=== PATIENT | female | born 1960 | race Caucasian/White ===

== ENCOUNTER → 2016-03-18 | Outpatient (CLI) | payer OTHER, MEDICARE, MEDICAID ==
[~2016-03-18] MED LIST: /WARF25TA PO; ACEP120S4 PO; ACET500C PO; ACET50TAOT PO; AMLO10TA2 PO; BACL10TA2 PO; BUSP15TA47 PO; CELE-19 PO; CITR500T PO; DICL75TA PO; DITR5TAB PO; ETOD400T PO; FERR140T PO; FEXO60CA PO; FIBE500T2 PO; FLUO1TAB3 PO; FOLI1TAB2 PO; HUMI40KI SC; HYDR-3713 PO; HYDR12.55 PO; HYDR25T PO; HYDR25TAB PO; INSULADS SC; INSULANT SC; IPRASOL4 INH; LASI20TA PO; LEVO750T33 PO; LIDO1OIN2 TOP; LISI10TA4 PO; LISI40TAB PO; LORA10TA2 PO; LYRI150C PO; LYRI200C PO; LYRI75CA PO; MELO7.5T6 PO; METF-699 PO; METF500T PO; METF500T4 PO; METH1INJ IJ; METH2.5TA PO; MOBI15TA PO; NAPR500T2; NICODIS TD; NYST10CR EXT; OMEP20CA3 PO; OXYC1TAB23 PO; PEPC40SU PO; PERC5TAB6 PO; PERC7.5T12 PO; PERCOCET PO; POTA10CA PO; PRAM0.123 PO; PRAV40TA2 PO; PRAV80TA2 PO; PROZ20CA11 PO; ROPI0.5T PO; ROPI5TAB PO; SERT25TA85 PO; SIMV40TA2 PO; SPIR25TA2 PO; STOO100T PO; TIZA4CAP3 PO; TRAZ50TA2 PO; ULTR50TA PO; VICT18IN SC; VOLT1GEL24 TOP; ZOCO40TA PO; ZOLO20CO PO; [UNRECOGNIZED DRUG - CODE] PO; [UNRECOGNIZED DRUG - OTHER] PO; [UNRECOGNIZED DRUG - OTHER] SQ; flexeril PO
== END ==
LOC: M PAIN 10:20
PROVIDERS: ATTEND Nurse Practitioner Family
DX: M79.1 Myalgia (principal); M46.96 Unspecified inflammatory spondylopathy, lumbar region; Z79.899 Other long term (current) drug therapy; M54.2 Cervicalgia; M19.90 Unspecified osteoarthritis, unspecified site; E78.5 Hyperlipidemia, unspecified; I10 Essential (primary) hypertension; Z79.891 Long term (current) use of opiate analgesic; Z79.84 Long term (current) use of oral hypoglycemic drugs; Z79.4 Long term (current) use of insulin

== ENCOUNTER → 2016-04-18 | Outpatient (REF) | payer OTHER, MEDICARE, MEDICAID | LOC: M SMT 12:48 | PROVIDERS: ATTEND Nurse Practitioner Women's Health | DX: R39.15 Urgency of urination (principal) ==

== ENCOUNTER → 2016-04-27 | Outpatient (CLI) | payer OTHER, MEDICARE, MEDICAID ==
--- NOTE | 2016-04-28 01:03 | ECWPNPC ---
PATIENT NAME: ESTHER MAE : 1960 GENDER: FEMALE VISIT DATE: 04/27/2016 DISCHARGE DATE: 04/27/16 1219 VISIT LOCKED DATE TIME: PHYSICIAN: JERE HORTON RESOURCE: JERE HORTON REASON FOR APPOINTMENT 1. WC, L SHOULDER AND L KNEE HISTORY OF PRESENT ILLNESS HISTORY OF PRESENT ILLNESS: PAIN THE PATIENT DESCRIBES THE PAIN... FALL RISK SCREENING: SCREENING :NO FALLS IN THE PAST YEAR TODAY'S VISIT: NOTES: WC FOLLOWUP VISIT FOR LEFT SHOULDER AND LEFT KNEE. RATES PAIN TODAY 12/06. PAIN IS CONSTANT, ACHING AND STABBING. PAIN MAKES IT VERY DIFFICULT TO WALK, SLEEP AND TO GO ABOUT ACTIVITES OF DAILY LIVING AT HOME.. CURRENT MEDICATIONS TAKING FOLIC ACID 1 MG TABLET 3 TABLET ORALLY ONCE A DAY TAKING METFORMIN HCL 1000 MG TABLET 1 TAB(S) ORALLY BID TAKING FAMOTIDINE 40 MG TABLET 1 TABLET AT BEDTIME ORALLY ONCE A DAY TAKING BUSPIRONE HCL 15 MG TABLET 1 TABLET ORALLY TWICE A DAY TAKING PEN NEEDLES 31G X 6 MM MISCELLANEOUS DIRECTED INTRAMUSCULARLY DAILY TAKING ROPINIROLE HCL 0.5 MG TABLET 1 TAB ORALLY AT BEDTIME TAKING INSULIN SYRINGE/NEEDLE 28G X 1/2 MISCELLANEOUS 1- DX: 250.00 SUBCUTANEOUSLY DAILY TAKING PRAVASTATIN SODIUM 80 MG TABLET 1 TABLET ORALLY ONCE A DAY TAKING TRAZODONE 50 50MG TABLET 1 TAB ORAL IN THE PM TAKING OXYGEN 2LPM DIRECTED NASAL CANNULA AT BEDTIME TAKING LANTUS 100 UNIT/ML SOLUTION INJECT 32 UNITS SUBCUTANEOUSLY AT BEDTIME TWICE DAILY TAKING ZYRTEC 10 MG TABLET 1 TABLET ORALLY ONCE A DAY TAKING HUMIRA PEN 40 MG/0.8ML KIT 0.8 ML SUBCUTANEOUS Q OTHER WEEK TAKING HYDROCHLOROTHIAZIDE 25 MG TABLET 1 TABLET ORALLY ONCE A DAY TAKING BYDUREON 2MG/VIAL 1 INJECTION SUBCUTANEOUSLY ONCE WEEKLY TAKING NORCO 5-325 MG TABLET 1 TABLET NEEDED ORALLY EVERY 6 HRS MDD =3 TAKING LYRICA 200 MG CAPSULE 1 CAPSULE ORALLY TWICE A DAY MDD=2 TAKING OXYBUTYNIN CHLORIDE ER 10 MG TABLET EXTENDED RELEASE 24 HOUR 1 TABLET ORALLY ONCE A DAY NOT-TAKING LISINOPRIL 40 MG TABLET 1 TABLET ORALLY ONCE A DAY NOT-TAKING FLUOXETINE 20 MG CAPSULE 1 CAPSULE IN THE MORNING ORALLY ONCE A DAY NOT-TAKING LYRICA 200 MG CAPSULE 1 CAPSULE ORALLY TWICE A DAYMDD2 NOT-TAKING BYDUREON 2 MG PEN-INJECTOR SUBCUTANEOUS NOT-TAKING METHOTREXATE 2.5 MG TABLET 6 TABS ORALLY WEEKLY, NOTES: 726-16 0800 NOT-TAKING HUMIRA 10 MG/0.2ML PREFILLED SYRINGE KIT SUBCUTANEOUS , NOTES: DUE 09-29-15 NOT-TAKING ROBAXIN 500 MG TABLET 1 TAB(S) ORALLY EVERY 8 HRS, NOTES: 09-24-152099 NOT-TAKING METFORMIN HCL ER 500 MG TABLET EXTENDED RELEASE 24 HOUR 1 TABLET WITH EVENING MEAL ORALLY TWICE DAILY, NOTES: 09-24-152099 NOT-TAKING MELOXICAM 7.5 MG TABLET 1 TABLET ORALLY TWICE A DAY MDD=2, NOTES: 09-24-152099 NOT-TAKING CLOTRIMAZOLE-7 1 % CREAM 1 APPLICATION AT BEDTIME VAGINAL ONCE A DAY NOT-TAKING LORATADINE 10 MG TABLET 1 TABLET ORALLY ONCE A DAY NOT-TAKING PREDNISONE 10 MG TABLET 1 TABLET ORALLY TAKE 4 TABS DAILY FOR 3 DAYS, 3 TABS X 3 DAY, 2TAB X 3 DAY, 1 TAB X 3 DAY NOT-TAKING LYRICA 150MG CAPSULE PAIN CLINIC ORALLY TWICE A DAYMDD2 NOT-TAKING CEFDINIR 300 MG CAPSULE 1 CAPSULE ORALLY EVERY 12 HRS NOT-TAKING OXYBUTYNIN CHLORIDE 5 MG TABLET 1 TABLET ORALLY TID NOT-TAKING PYRIDIUM 200 MG TABLET 1 TABLET AFTER MEALS ORALLY THREE TIMES A DAY NOT-TAKING CIPRO 500 MG TABLET 1 TABLET ORALLY DIRECTED- 1 HOUR BEFORE CYSTOSCOPY NOT-TAKING DIFLUCAN 150MG (1 TABLET) 150 MG TABLET 1 TABLET ORALLY ONCE A WEEK UNKNOWN OXYCODONE-ACETAMINOPHEN 5-325 MG TABLET 1 TAB ORALLY EVERY 8 HOUR NEEDED MDD 3 UNKNOWN IMODIUM A-D 2 MG TABLET 2 TAB IN MORNING, 1 TAB AFTER EACH BM MAX 8 IN 24 HOURS ORALLY DIRECTED MEDICATION LIST REVIEWED AND RECONCILED WITH THE PATIENT PAST MEDICAL HISTORY DM CHRONIC LUNG DISEASE GERD ARTHRITIS BACK PAIN/NECK PAIN HYPERLIPIDEMIA HTN RLS FIBROMYALGIA RA PNEUMONIA ALLERGIES SEASONAL: RED, ITCHY EYES, HEADACHE, NASAL CONGESTION: ALLERGY SOCIAL HISTORY GENERAL: TOBACCO USE ARE YOU A:CURRENT SMOKER LEARNING BARRIERS / SPECIAL NEEDS ORIENTED TO PLAN OF CARE: PATIENT, PAIN MANAGEMENT PATIENT, ORIENTED TO PLAN OF CARE: PATIENT, PAIN MANAGEMENT PATIENT. NEW PATIENT PAIN DIARY TODAY'S VISITNOTES FROM 0-10, WHAT LEVEL IS YOUR PAIN TODAY?0 PAIN CLINIC PFS, CLERGY, PUBLIC HEALTH REFERRALS PFS REFERRAL NEEDED?NO CLERGY REFERRAL NEEDED?NO PUBLIC HEALTH REFERRAL NEEDED?NO WAS THE PROVIDER NOTIFIED OF ANY PERTINENT INFO?NO PFS REFERRAL NEEDED?NO CLERGY REFERRAL NEEDED?NO PUBLIC HEALTH REFERRAL NEEDED?NO WAS THE PROVIDER NOTIFIED OF ANY PERTINENT INFO?NO REVIEW OF SYSTEMS CONSTITUTIONAL: ANY CHANGE IN YOUR MEDICAL CONDITION? NO . CHILLS NO . FEVER NO . INFECTION: DO YOU HAVE NEW INFECTIONS? NO . DO YOU HAVE HISTORY OF MRSA? NO . MUSCULOSKELETAL: ANY NEW PATTERNS OF PAIN OR NUMBNESS? NO . GASTROENTEROLOGY: ANY NEW CHANGE IN BOWEL CONTROL? NO . GENITOURINARY: ANY NEW CHANGE IN BLADDER CONTROL? NO . IS THERE A CHANCE YOU COULD BE ? NO . HEMATOLOGY/LYMPH: DO YOU TAKE ANY BLOOD THINNERS? (FOR EXAMPLE- COUMADIN, PLAVIX, AGGRENOX, PLATEL, PRADAXA, OR XARELTO) NO . WHEN WAS YOUR LAST DOSE? DATE: TIME: . NEUROLOGY: HAVE YOU FALLEN IN THE PAST 6 MONTHS? NO . ANY NEW EXTREMITY NUMBNESS OR WEAKNESS? NO . CARDIOLOGY: DO YOU HAVE A PACEMAKER OR DEFIBRILLATOR? NO . RESPIRATORY: HAVE YOU BEEN SICK IN THE PAST WEEK? YES, SINUS INFECTION - JUST STARTED ON LEVAQUIN. STILL ON 2-4/NC ESPECIALLY WHEN WALKING. . FEVER NO . FLU LIKE SYMPTOMS? NO . COUGH NO . INTEGUMENTARY: DO YOU HAVE ANY RASHES OR OPEN SORES? NO . ALLERGIC/IMMUNO: ARE YOU ALLERGIC TO SHELLFISH OR IV DYE? NO . ANY NEW ALLERGIES? NO . PSYCHIATRIC: DO YOU HAVE THOUGHTS OF HURTING YOURSELF OR SOMEONE ELSE? NO . ARE YOU ABUSED, NEGLECTED, OR IN AN UNSAFE ENVIRONMENT? NO . ENDOCRINOLOGY: ARE YOU DIABETIC? YES - 117- 130. . OTHER: DO YOU NEED ANY PRESCRIPTIONS? YES . IF YES, PLEASE LIST: LYRICA . ANY NEW PROBLEMS WITH YOUR MEDICATIONS? NO . WHEN DID YOU LAST EAT? ____ . WHEN DID YOU LAST DRINK? ____ . WHAT DID YOU LAST DRINK? ____ . NAME OF PERSON DRIVING YOU HOME? ____ . DO YOU HAVE ANY OTHER QUESTIONS OR CONCERNS NO . REVIEWED BY: PROVIDER: JERE HORTON [employer] STAFF OFFICER . VITAL SIGNS WT 278.8 LBS, HT 66.75 IN, BMI 43.99 INDEX, BP 133/83 MM HG, HR 95 /MIN, RR 18 /MIN, TEMP 98.2 F, OXYGEN SAT % 97%, NA INITIALS IL 11:27, REVIEWED BY: JET. EXAMINATION GENERAL EXAMINATION: GENERAL APPEARANCE:COLOR PINK. PSYCHALERT , ORIENTED X 3 , APPROPRIATE MOOD AND AFFECT . LUNGS:DECREASED AIR FLOW. NO WHEEZES, RALES OR RHONCHI. HEART:HEART RATE INTERMITTANTLY IRREGULAR. MUSCULOSKELETAL:TRIGGER POINTS:ANTERIOR AND POSTERIOR SHOULDER AREA. CAN ABDUCT LEFT SHOULDER TO 90 DEGREES. PAIN IN AC JOINT WITH INTERNAL AND EXTERNAL MOTION. IMPLEMENTATION LEAD STRENGTH EQUAL AND STRONG. LEFT KNEE WARM TO TOUGH, WITH SOME EDEMA OVER THE LATERAL ASPECT. TENDERNESS OVER ILIOTIBIAL BAND.. ASSESSMENTS CHRONIC PRESCRIPTION OPIATE USE - Z79.899 (PRIMARY) JOINT PAIN - M25.50 PAIN IN LEFT KNEE - M25.562 OTHER CHRONIC PAIN - G89.29 PAIN IN LEFT SHOULDER - M25.512 TREATMENT CHRONIC PRESCRIPTION OPIATE USE NOTES: KEEP DOING RANGE OF MOTION ACTIVITIES. CONTINE TENS UNIT, MASSAGE AND BENGAY. PAIN IN LEFT SHOULDER NOTES: CONTINUE EXERCISES AND STRETCHES. USE ALTERNATING ICE AND HEAT. USE PAIN MEDS INFREQUENTLY. PROCEDURES PN WORKMANS' COMP OPINION IN YOUR OPINION, WAS THE INCIDENT THAT THE PATIENT DESCRIBED THE COMPETENT MEDICAL CAUSE OF THIS INJURY/ILLNESS? YES ARE THE PATIENT'S COMPLAINTS CONSISTENT WITH HIS/HER HISTORY OF THE INJURY/ILLNESS? YES IS THE PATIENT'S HISTORY OF THE INJURY/ILLNESS CONSISTENT WITH YOUR OBJECTIVE FINDING? YES WHAT IS THE PERCENTAGE OF TEMPORARY IMPAIRMENT? MODERATE TO MARKED = 66.7% IS THE PATIENT WORKING? NO DOCTOR ON SITE: JOSE HAUSER MD PROCEDURE CODES FA211 ESTABILISHED PATIENT [facility] CHARGE DISPOSITION & COMMUNICATION FOLLOW UP 6 WEEKS (REASON: WC LEFT SHOULDER AND KNEE) ELECTRONICALLY SIGNED BY JESSE ALLEN ON 04/27/2016 AT 01:49 PM EST DISCLAIMER : THIS IS A VISIT SUMMARY EXTRACTED FROM THE [employer] CHART. IT IS NOT A COPY OF THE [employer] PROGRESS NOTE. PRETTY
== END ==
LOC: M PAIN 10:40
PROVIDERS: ATTEND Nurse Practitioner Family
DX: M25.562 Pain in left knee (principal); M25.512 Pain in left shoulder; G89.29 Other chronic pain; Z79.891 Long term (current) use of opiate analgesic; Z79.899 Other long term (current) drug therapy; Z79.84 Long term (current) use of oral hypoglycemic drugs; Z79.4 Long term (current) use of insulin; M79.7 Fibromyalgia; M46.96 Unspecified inflammatory spondylopathy, lumbar region; I10 Essential (primary) hypertension; E11.9 Type 2 diabetes mellitus without complications; E78.5 Hyperlipidemia, unspecified; L40.50 Arthropathic psoriasis, unspecified; J30.2 Other seasonal allergic rhinitis

== ENCOUNTER → 2016-05-13 | Outpatient (CLI) | payer MEDICARE, MEDICAID, OTHER ==
--- NOTE | 2016-05-18 00:04 | ECWPNPC ---
PATIENT NAME: ESTHER MAE : 1960 GENDER: FEMALE VISIT DATE: 05/13/2016 DISCHARGE DATE: 05/13/16 1525 VISIT LOCKED DATE TIME: PHYSICIAN: JERE HORTON RESOURCE: JERE HORTON REASON FOR APPOINTMENT 1. NON COMP- HISTORY OF PRESENT ILLNESS HISTORY OF PRESENT ILLNESS: PAIN THE PATIENT DESCRIBES THE PAIN... THE PATIENT DESCRIBES THE PAIN... PAIN THE PATIENT DESCRIBES THE PAIN... THE PATIENT DESCRIBES THE PAIN... FALL RISK SCREENING: SCREENING :NO FALLS IN THE PAST YEAR :NO FALLS IN THE PAST YEAR SCREENING :NO FALLS IN THE PAST YEAR :NO FALLS IN THE PAST YEAR TODAY'S VISIT: NOTES: NON COMP VISIT FOR LOW BACK. RATES PAIN TODAY 8/10. PAIN IN LOW BACK WITH RADIATING TO LEGS AND FEET. PAIN IS MUCH WORSE SINCE FALLING OUT OF BED 2 WEEKS AGO. NOTES GENERALIZED FATIGUE IN LOWER EXTREMITES.. CURRENT MEDICATIONS TAKING FOLIC ACID 1 MG TABLET 3 TABLET ORALLY ONCE A DAY TAKING METFORMIN HCL 1000 MG TABLET 1 TAB(S) ORALLY BID TAKING FAMOTIDINE 40 MG TABLET 1 TABLET AT BEDTIME ORALLY ONCE A DAY TAKING BUSPIRONE HCL 15 MG TABLET 1 TABLET ORALLY TWICE A DAY TAKING PEN NEEDLES 31G X 6 MM MISCELLANEOUS DIRECTED INTRAMUSCULARLY DAILY TAKING ROPINIROLE HCL 0.5 MG TABLET 1 TAB ORALLY AT BEDTIME TAKING INSULIN SYRINGE/NEEDLE 28G X 1/2 MISCELLANEOUS 1- DX: 250.00 SUBCUTANEOUSLY DAILY TAKING PRAVASTATIN SODIUM 80 MG TABLET 1 TABLET ORALLY ONCE A DAY TAKING OXYGEN 2LPM DIRECTED NASAL CANNULA AT BEDTIME TAKING LANTUS 100 UNIT/ML SOLUTION INJECT 32 UNITS SUBCUTANEOUSLY AT BEDTIME TWICE DAILY TAKING ZYRTEC 10 MG TABLET 1 TABLET ORALLY ONCE A DAY TAKING HUMIRA PEN 40 MG/0.8ML KIT 0.8 ML SUBCUTANEOUS Q OTHER WEEK TAKING HYDROCHLOROTHIAZIDE 25 MG TABLET 1 TABLET ORALLY ONCE A DAY TAKING BYDUREON 2MG/VIAL 1 INJECTION SUBCUTANEOUSLY ONCE WEEKLY TAKING NORCO 5-325 MG TABLET 1 TABLET NEEDED ORALLY EVERY 6 HRS MDD =3 TAKING LYRICA 200 MG CAPSULE 1 CAPSULE ORALLY TWICE A DAY MDD=2 TAKING OXYBUTYNIN CHLORIDE ER 10 MG TABLET EXTENDED RELEASE 24 HOUR 1 TABLET ORALLY ONCE A DAY TAKING SPIRONOLACTONE 25 MG TABLET 1 TABLET ORALLY TWICE A DAY TAKING ASPIR-81 81 MG TABLET DELAYED RELEASE 1 TABLET ORALLY ONCE A DAY NOT-TAKING TRAZODONE 50 50MG TABLET 1 TAB ORAL IN THE PM NOT-TAKING LISINOPRIL 40 MG TABLET 1 TABLET ORALLY ONCE A DAY NOT-TAKING FLUOXETINE 20 MG CAPSULE 1 CAPSULE IN THE MORNING ORALLY ONCE A DAY NOT-TAKING LYRICA 200 MG CAPSULE 1 CAPSULE ORALLY TWICE A DAYMDD2 NOT-TAKING BYDUREON 2 MG PEN-INJECTOR SUBCUTANEOUS NOT-TAKING METHOTREXATE 2.5 MG TABLET 6 TABS ORALLY WEEKLY, NOTES: 6-16 0800 NOT-TAKING HUMIRA 10 MG/0.2ML PREFILLED SYRINGE KIT SUBCUTANEOUS , NOTES: DUE 09-29-15 NOT-TAKING ROBAXIN 500 MG TABLET 1 TAB(S) ORALLY EVERY 8 HRS, NOTES: 09-24-152099 NOT-TAKING METFORMIN HCL ER 500 MG TABLET EXTENDED RELEASE 24 HOUR 1 TABLET WITH EVENING MEAL ORALLY TWICE DAILY, NOTES: 09-24-152099 NOT-TAKING MELOXICAM 7.5 MG TABLET 1 TABLET ORALLY TWICE A DAY MDD=2, NOTES: 09-24-152099 NOT-TAKING CLOTRIMAZOLE-7 1 % CREAM 1 APPLICATION AT BEDTIME VAGINAL ONCE A DAY NOT-TAKING LORATADINE 10 MG TABLET 1 TABLET ORALLY ONCE A DAY NOT-TAKING PREDNISONE 10 MG TABLET 1 TABLET ORALLY TAKE 4 TABS DAILY FOR 3 DAYS, 3 TABS X 3 DAY, 2TAB X 3 DAY, 1 TAB X 3 DAY NOT-TAKING LYRICA 150MG CAPSULE PAIN CLINIC ORALLY TWICE A DAYMDD2 NOT-TAKING CEFDINIR 300 MG CAPSULE 1 CAPSULE ORALLY EVERY 12 HRS NOT-TAKING OXYBUTYNIN CHLORIDE 5 MG TABLET 1 TABLET ORALLY TID NOT-TAKING PYRIDIUM 200 MG TABLET 1 TABLET AFTER MEALS ORALLY THREE TIMES A DAY NOT-TAKING CIPRO 500 MG TABLET 1 TABLET ORALLY DIRECTED- 1 HOUR BEFORE CYSTOSCOPY NOT-TAKING DIFLUCAN 150MG (1 TABLET) 150 MG TABLET 1 TABLET ORALLY ONCE A WEEK UNKNOWN OXYCODONE-ACETAMINOPHEN 5-325 MG TABLET 1 TAB ORALLY EVERY 8 HOUR NEEDED MDD 3 UNKNOWN IMODIUM A-D 2 MG TABLET 2 TAB IN MORNING, 1 TAB AFTER EACH BM MAX 8 IN 24 HOURS ORALLY DIRECTED MEDICATION LIST REVIEWED AND RECONCILED WITH THE PATIENT PAST MEDICAL HISTORY DM CHRONIC LUNG DISEASE GERD ARTHRITIS BACK PAIN/NECK PAIN HYPERLIPIDEMIA HTN RLS FIBROMYALGIA RA PNEUMONIA ALLERGIES SEASONAL: RED, ITCHY EYES, HEADACHE, NASAL CONGESTION: ALLERGY SOCIAL HISTORY GENERAL: TOBACCO USE ARE YOU A:CURRENT SMOKER ARE YOU A:CURRENT SMOKER LEARNING BARRIERS / SPECIAL NEEDS ORIENTED TO PLAN OF CARE: PATIENT, PAIN MANAGEMENT PATIENT, ORIENTED TO PLAN OF CARE: PATIENT, PAIN MANAGEMENT PATIENT, ORIENTED TO PLAN OF CARE: PATIENT, PAIN MANAGEMENT PATIENT, ORIENTED TO PLAN OF CARE: PATIENT, PAIN MANAGEMENT PATIENT. NEW PATIENT PAIN DIARY TODAY'S VISITNOTES FROM 0-10, WHAT LEVEL IS YOUR PAIN TODAY?0 TODAY'S VISITNOTES FROM 0-10, WHAT LEVEL IS YOUR PAIN TODAY?0 PAIN CLINIC PFS, CLERGY, PUBLIC HEALTH REFERRALS PFS REFERRAL NEEDED?NO CLERGY REFERRAL NEEDED?NO PUBLIC HEALTH REFERRAL NEEDED?NO WAS THE PROVIDER NOTIFIED OF ANY PERTINENT INFO?NO PFS REFERRAL NEEDED?NO CLERGY REFERRAL NEEDED?NO PUBLIC HEALTH REFERRAL NEEDED?NO WAS THE PROVIDER NOTIFIED OF ANY PERTINENT INFO?NO PFS REFERRAL NEEDED?NO CLERGY REFERRAL NEEDED?NO PUBLIC HEALTH REFERRAL NEEDED?NO WAS THE PROVIDER NOTIFIED OF ANY PERTINENT INFO?NO PFS REFERRAL NEEDED?NO CLERGY REFERRAL NEEDED?NO PUBLIC HEALTH REFERRAL NEEDED?NO WAS THE PROVIDER NOTIFIED OF ANY PERTINENT INFO?NO REVIEW OF SYSTEMS CONSTITUTIONAL: ANY CHANGE IN YOUR MEDICAL CONDITION? NO, NO . CHILLS NO, NO . FEVER NO, NO . INFECTION: DO YOU HAVE NEW INFECTIONS? NO, NO . DO YOU HAVE HISTORY OF MRSA? NO, NO . MUSCULOSKELETAL: ANY NEW PATTERNS OF PAIN OR NUMBNESS? NO, NO . GASTROENTEROLOGY: ANY NEW CHANGE IN BOWEL CONTROL? NO, NO . GENITOURINARY: ANY NEW CHANGE IN BLADDER CONTROL? NO, NO . IS THERE A CHANCE YOU COULD BE ? NO, NO . HEMATOLOGY/LYMPH: DO YOU TAKE ANY BLOOD THINNERS? (FOR EXAMPLE- COUMADIN, PLAVIX, AGGRENOX, PLATEL, PRADAXA, OR XARELTO) NO, NO . WHEN WAS YOUR LAST DOSE? DATE: TIME: , DATE: TIME: . NEUROLOGY: HAVE YOU FALLEN IN THE PAST 6 MONTHS? YES FELL OUT OF BED RIGHT L . ANY NEW EXTREMITY NUMBNESS OR WEAKNESS? NO . CARDIOLOGY: DO YOU HAVE A PACEMAKER OR DEFIBRILLATOR? NO, NO . RESPIRATORY: HAVE YOU BEEN SICK IN THE PAST WEEK? SINUS INFECTION -FELT TO BE VIRAL ON CHRONIC OXYGEN 4L/NC WHEN OUT, 2 LITERS AT HOME. IS STILL SMOKING 1 PK/DAY . FEVER NO, NO . FLU LIKE SYMPTOMS? NO, NO . COUGH NO, NO . INTEGUMENTARY: DO YOU HAVE ANY RASHES OR OPEN SORES? NO, NO . ALLERGIC/IMMUNO: ARE YOU ALLERGIC TO SHELLFISH OR IV DYE? NO, NO . ANY NEW ALLERGIES? NO, NO . PSYCHIATRIC: DO YOU HAVE THOUGHTS OF HURTING YOURSELF OR SOMEONE ELSE? NO, NO . ARE YOU ABUSED, NEGLECTED, OR IN AN UNSAFE ENVIRONMENT? NO, NO . ENDOCRINOLOGY: ARE YOU DIABETIC? , YES BLOOD SUGARS -130 . OTHER: DO YOU NEED ANY PRESCRIPTIONS? , YES LYRICA . IF YES, PLEASE LIST: ____, ____ . ANY NEW PROBLEMS WITH YOUR MEDICATIONS? NO, NO . WHEN DID YOU LAST EAT? ____, ____ . WHEN DID YOU LAST DRINK? ____, ____ . WHAT DID YOU LAST DRINK? ____, ____ . NAME OF PERSON DRIVING YOU HOME? ____, ____ . DO YOU HAVE ANY OTHER QUESTIONS OR CONCERNS NO, NO . REVIEWED BY: PROVIDER: JERE PARNELL . VITAL SIGNS WT 276.6 LBS, HT 66.75 IN, BMI 43.64 INDEX, BP 151/83 MM HG, HR 86 /MIN, RR 18 /MIN, TEMP 98.1 F, OXYGEN SAT % 97%, NA INITIALS SC 13:58, REVIEWED BY: KG. EXAMINATION GENERAL EXAMINATION: GENERAL APPEARANCE:COLOR PINK, SKIN WARM, DRY. PSYCHALERT , ORIENTED X 3 , APPROPRIATE MOOD AND AFFECT . LUNGS:DECREASED AIRFLOW THROUHOUT ALL LUNG BERRY. , BILATERAL WHEEZES. O2 AT 4L/NC IN PLACE. HEART:HEART RATE REGULAR. MUSCULOSKELETAL:MUSCLE STRENGTH TESTING 5/5 BILATERAL UPPER AND LOWER EXTREMITIES. EXQUSITE TENDERNESS WITH PALPATION OVER LUMBAR SPINOUS PROCESSES., TRIGGER POINTS AND TIGHT FIBROUS BANDS IDENTIFIED OVER LUMBAR PARAVERTEBRAL MUSCLES AND INTO THE SACRUM. SLOW TO RISE TO STANDING POSITION. POSTURE UPRIGHT. GAIT WIDEBASED.. ASSESSMENTS LUMBAR DISC DISPLACEMENT WITHOUT MYELOPATHY - M51.26 (PRIMARY) LUMBAR RADICULAR SYNDROME - M54.16 TREATMENT LUMBAR DISC DISPLACEMENT WITHOUT MYELOPATHY REFILL LYRICA CAPSULE, 200 MG, 1 CAPSULE, ORALLY, TWICE A DAY MDD=2, 30 DAY(S), 60, REFILLS 3 START BACLOFEN TABLET, 10 MG, 1 TABLET WITH FOOD OR MILK, ORALLY, THREE TIMES A DAY, 30 DAY(S), 90, REFILLS 1 CAUDAL/LUMBAR EPIDURALCLIFFORDRICKJERE Haseeb 05/13/2016 3:08:29 PM > INTRLAMINAR APPROACH NOTES: STOP SMOKING. ICE TO BACK. KEEP WALKING, FALLS CARE PLAN: 1. RECOMMEND REMOVING ALL THROW RUGS. 2. RECOMMEND NIGHT LIGHTS 3. RECOMMEND WEARING RUBBER SOLED SHOES AND TO NOT GO BAREFOOT. 4.. ADVISED TO CHANGE POSITION SLOWLY FROM SUPINE TO STANDING TO AVOID DIZZINESS. 5. ADVISED TO USE ASSISTIVE DEVICE SUCH CANE OR WALKER 6. USE [employer]IF[employer] SERVICES OR KEEP PORTABLE PHONE READILY AVAILABLE, # 226 TOBACCO USE SCREENING/INTERVENTION: PATIENT CURRENTLY USED TOBACCO. WAS OFFERED SMOKING CESSATION FOR GUIDANCE IN QUITTING THROUGH THE [facility] QUITS PROGRAM AND THE [facility] CESSATION PROGRAM. , #128 - SCREENING BMI AND F/U PLAN IN : BMI ABOVE NORMAL TODAY. DISCUSSED WITH PATIENT NUTRITIONAL FOOD CHOICES TO ASSIST WITH WEIGHT LOSS. RECCOMMENDED REDUCING SALT, SUGAR, SODA INTAKE. RECOMMEND INCREASE ACTIVITY TO INCLUDE WALKING ON A REGULAR BASIS. CLINICAL NOTES: ISTOP REGISTRY REVIEWED AND DEMNOSTRATES COMPLLIANCE. BRINGS IN MEDICATIONS WHICH IS APPROPRIATE FOR WHAT WAS DISPENSED. RECENT URINE TOXICOLOGY REVIEWED. NO UNAUTHORIZED MEDICATIONS. NO ILLICIT SUBSTANCES AND PRESCRIBED MEDICATIONS WERE PRESENT. PROCEDURE CODES G8783 BP SCR PRFRM RCMDD DEFIND SCR INTVL G8730 PAIN ASSESS POS TOOL F/U PLAN DOC 3016F PT SCRND UNHLTHY OH USE 1123F ACP DISCUSS/DSCN MKR DOCD 0518F FALL PLAN OF CARE DOCD G8427 DOC MEDS VERIFIED W/PT OR RE G8417 BMI >=30 CALCUATE W/FOLLOWUP 3288F FALL RISK ASSESSMENT DOCD 4004F PT TOBACCO SCREEN RCVD TLK DISPOSITION & COMMUNICATION FOLLOW UP AFTER INJECTION (REASON: CHECK AUTH FOR LESB NEEDS TO DO JUST BEFORE HUMIRA) ELECTRONICALLY SIGNED BY JESSE ALLEN ON 05/17/2016 AT 05:40 PM EDT DISCLAIMER : THIS IS A VISIT SUMMARY EXTRACTED FROM THE [employer] CHART. IT IS NOT A COPY OF THE [employer] PROGRESS NOTE. PRETTY
== END ==
LOC: M PAIN 14:00
PROVIDERS: ATTEND Nurse Practitioner Family
DX: M51.26 Other intervertebral disc displacement, lumbar region (principal); M54.16 Radiculopathy, lumbar region; M79.7 Fibromyalgia; Z79.891 Long term (current) use of opiate analgesic; Z79.899 Other long term (current) drug therapy; Z79.82 Long term (current) use of aspirin; Z79.84 Long term (current) use of oral hypoglycemic drugs; Z79.4 Long term (current) use of insulin; E11.9 Type 2 diabetes mellitus without complications; I10 Essential (primary) hypertension; E78.5 Hyperlipidemia, unspecified

== ENCOUNTER → 2016-06-01 | Outpatient (CLI) | payer MEDICARE, MEDICAID, OTHER ==
[~2016-06-01] MED LIST changes: +ISOVUE-M 300 61% 15ML VIAL (Q9967) As Ordered ONE; +LIDOCAINE 1% SDV INJ 30 ML VIAL As Ordered ONE; +diazePAM 5 MG TAB As Ordered ONE; +methylPREDNISolone SUSP 40 MG/ML (DEPO-medrol) VIAL (J1030) As Ordered ONE; +oxyCODONE 5MG TAB As Ordered ONE
--- NOTE | 2016-06-01 13:41 | REP ---
C-ARM VIEWS LUMBAR SPINE: CLINICAL HISTORY: Pain. Three C-arm views lumbar spine performed during and injection by Dr. Mendoza. Willet are seen at the L5 level. 38 seconds fluoroscopy time utilized. Signed by German Escalona MD 06/01/2016 05:38 P
--- NOTE | 2016-06-05 23:35 | ECWPNPC ---
PATIENT NAME: ESTHER MAE : 1960 GENDER: FEMALE VISIT DATE: 06/01/2016 DISCHARGE DATE: 06/01/16 1216 VISIT LOCKED DATE TIME: PHYSICIAN: JOSE CORTEZ RESOURCE: JOSE CORTEZ REASON FOR APPOINTMENT 1. [facility]-MEDICARE/NON COMP HISTORY OF PRESENT ILLNESS HISTORY OF PRESENT ILLNESS: PAIN THE PATIENT DESCRIBES THE PAIN... FALL RISK SCREENING: SCREENING :NO FALLS IN THE PAST YEAR CURRENT MEDICATIONS TAKING FOLIC ACID 1 MG TABLET 3 TABLET ORALLY ONCE A DAY, NOTES: 05-31-16 TAKING METFORMIN HCL 1000 MG TABLET 1 TAB(S) ORALLY BID, NOTES: 05-31-162099 TAKING FAMOTIDINE 40 MG TABLET 1 TABLET AT BEDTIME ORALLY ONCE A DAY, NOTES: 05-31-162099 TAKING BUSPIRONE HCL 15 MG TABLET 1 TABLET ORALLY TWICE A DAY, NOTES: 05-31-162099 TAKING PEN NEEDLES 31G X 6 MM MISCELLANEOUS DIRECTED INTRAMUSCULARLY DAILY TAKING ROPINIROLE HCL 0.5 MG TABLET 1 TAB ORALLY AT BEDTIME, NOTES: 05-31-162099 TAKING INSULIN SYRINGE/NEEDLE 28G X 1/2 MISCELLANEOUS 1- DX: 250.00 SUBCUTANEOUSLY DAILY TAKING PRAVASTATIN SODIUM 80 MG TABLET 1 TABLET ORALLY ONCE A DAY, NOTES: 05-31-162099 TAKING OXYGEN 2LPM DIRECTED NASAL CANNULA AT BEDTIME TAKING LANTUS 100 UNIT/ML SOLUTION INJECT 32 UNITS SUBCUTANEOUSLY AT BEDTIME TWICE DAILY, NOTES: 05-31-162099 TAKING ZYRTEC 10 MG TABLET 1 TABLET ORALLY ONCE A DAY, NOTES: 05-31-16 TAKING HUMIRA PEN 40 MG/0.8ML KIT 0.8 ML SUBCUTANEOUS Q OTHER WEEK, NOTES: 05-31-16 TAKING HYDROCHLOROTHIAZIDE 25 MG TABLET 1 TABLET ORALLY ONCE A DAY, NOTES: 05-31-162099 TAKING BYDUREON 2MG/VIAL 1 INJECTION SUBCUTANEOUSLY ONCE WEEKLY, NOTES: 05-31-16 TAKING NORCO 5-325 MG TABLET 1 TABLET NEEDED ORALLY EVERY 6 HRS MDD =3, NOTES: COUPLE DAYS AGO TAKING OXYBUTYNIN CHLORIDE ER 10 MG TABLET EXTENDED RELEASE 24 HOUR 1 TABLET ORALLY ONCE A DAY, NOTES: 05-31-16 TAKING SPIRONOLACTONE 25 MG TABLET 1 TABLET ORALLY TWICE A DAY, NOTES: 4-4-17 AM TAKING ASPIR-81 81 MG TABLET DELAYED RELEASE 1 TABLET ORALLY ONCE A DAY, NOTES: 05-31-16 TAKING LYRICA 200 MG CAPSULE 1 CAPSULE ORALLY TWICE A DAY MDD=2, NOTES: 05-31-162099 TAKING BACLOFEN 10 MG TABLET 1 TABLET WITH FOOD OR MILK ORALLY THREE TIMES A DAY, NOTES: 05-31-162099 TAKING PREDNISONE 10 MG TABLET 1 TABLET ORALLY DAILY, NOTES: 05-31-16 AM NOT-TAKING CLOTRIMAZOLE-7 1 % CREAM 1 APPLICATION AT BEDTIME VAGINAL ONCE A DAY NOT-TAKING IMODIUM A-D 2 MG TABLET 2 TAB IN MORNING, 1 TAB AFTER EACH BM MAX 8 IN 24 HOURS ORALLY DIRECTED DISCONTINUED TRAZODONE 50 50MG TABLET 1 TAB ORAL IN THE PM DISCONTINUED LISINOPRIL 40 MG TABLET 1 TABLET ORALLY ONCE A DAY DISCONTINUED FLUOXETINE 20 MG CAPSULE 1 CAPSULE IN THE MORNING ORALLY ONCE A DAY DISCONTINUED LYRICA 200 MG CAPSULE 1 CAPSULE ORALLY TWICE A DAYMDD2 DISCONTINUED BYDUREON 2 MG PEN-INJECTOR SUBCUTANEOUS DISCONTINUED METHOTREXATE 2.5 MG TABLET 6 TABS ORALLY WEEKLY, NOTES: 0800 DISCONTINUED HUMIRA 10 MG/0.2ML PREFILLED SYRINGE KIT SUBCUTANEOUS , NOTES: DUE 09-29-15 DISCONTINUED ROBAXIN 500 MG TABLET 1 TAB(S) ORALLY EVERY 8 HRS, NOTES: 09-24-152099 DISCONTINUED METFORMIN HCL ER 500 MG TABLET EXTENDED RELEASE 24 HOUR 1 TABLET WITH EVENING MEAL ORALLY TWICE DAILY, NOTES: 09-24-152099 DISCONTINUED MELOXICAM 7.5 MG TABLET 1 TABLET ORALLY TWICE A DAY MDD=2, NOTES: 09-24-152099 DISCONTINUED LORATADINE 10 MG TABLET 1 TABLET ORALLY ONCE A DAY DISCONTINUED LYRICA 150MG CAPSULE PAIN CLINIC ORALLY TWICE A DAYMDD2 DISCONTINUED CEFDINIR 300 MG CAPSULE 1 CAPSULE ORALLY EVERY 12 HRS DISCONTINUED OXYBUTYNIN CHLORIDE 5 MG TABLET 1 TABLET ORALLY TID DISCONTINUED PYRIDIUM 200 MG TABLET 1 TABLET AFTER MEALS ORALLY THREE TIMES A DAY DISCONTINUED CIPRO 500 MG TABLET 1 TABLET ORALLY DIRECTED- 1 HOUR BEFORE CYSTOSCOPY DISCONTINUED DIFLUCAN 150MG (1 TABLET) 150 MG TABLET 1 TABLET ORALLY ONCE A WEEK DISCONTINUED OXYCODONE-ACETAMINOPHEN 5-325 MG TABLET 1 TAB ORALLY EVERY 8 HOUR NEEDED MDD 3 MEDICATION LIST REVIEWED AND RECONCILED WITH THE PATIENT PAST MEDICAL HISTORY DM CHRONIC LUNG DISEASE GERD ARTHRITIS BACK PAIN/NECK PAIN HYPERLIPIDEMIA HTN RLS FIBROMYALGIA RA PNEUMONIA ALLERGIES SEASONAL: RED, ITCHY EYES, HEADACHE, NASAL CONGESTION: ALLERGY SOCIAL HISTORY GENERAL: PAIN CLINIC PFS, CLERGY, PUBLIC HEALTH REFERRALS CLERGY REFERRAL NEEDED?NO WAS THE PROVIDER NOTIFIED OF ANY PERTINENT INFO?NO PFS REFERRAL NEEDED?NO PUBLIC HEALTH REFERRAL NEEDED?NO PATIENT: ____. REVIEW OF SYSTEMS CONSTITUTIONAL: ANY CHANGE IN YOUR MEDICAL CONDITION? YES, JUST PLACED ON PREDNISONE FOR HER LUNG AND LABS., BY RHUMATOLOGIST. . CHILLS NO . FEVER NO . INFECTION: DO YOU HAVE NEW INFECTIONS? NO . DO YOU HAVE HISTORY OF MRSA? NO . MUSCULOSKELETAL: ANY NEW PATTERNS OF PAIN OR NUMBNESS? NO . GASTROENTEROLOGY: ANY NEW CHANGE IN BOWEL CONTROL? NO . GENITOURINARY: ANY NEW CHANGE IN BLADDER CONTROL? NO . IS THERE A CHANCE YOU COULD BE ? NO . HEMATOLOGY/LYMPH: DO YOU TAKE ANY BLOOD THINNERS? (FOR EXAMPLE- COUMADIN, PLAVIX, AGGRENOX, PLATEL, PRADAXA, OR XARELTO) NO . WHEN WAS YOUR LAST DOSE? DATE: TIME: . NEUROLOGY: HAVE YOU FALLEN IN THE PAST 6 MONTHS? NO . ANY NEW EXTREMITY NUMBNESS OR WEAKNESS? NO . CARDIOLOGY: DO YOU HAVE A PACEMAKER OR DEFIBRILLATOR? NO . RESPIRATORY: HAVE YOU BEEN SICK IN THE PAST WEEK? NO . FEVER NO . FLU LIKE SYMPTOMS? NO . COUGH NO . INTEGUMENTARY: DO YOU HAVE ANY RASHES OR OPEN SORES? NO . ALLERGIC/IMMUNO: ARE YOU ALLERGIC TO SHELLFISH OR IV DYE? NO . ANY NEW ALLERGIES? NO . PSYCHIATRIC: DO YOU HAVE THOUGHTS OF HURTING YOURSELF OR SOMEONE ELSE? NO . ARE YOU ABUSED, NEGLECTED, OR IN AN UNSAFE ENVIRONMENT? NO . ENDOCRINOLOGY: ARE YOU DIABETIC? YES . OTHER: DO YOU NEED ANY PRESCRIPTIONS? NO . IF YES, PLEASE LIST: ____ . ANY NEW PROBLEMS WITH YOUR MEDICATIONS? NO . WHEN DID YOU LAST EAT? 05-31-16 8PM . WHEN DID YOU LAST DRINK? 05-31-16 11PM . WHAT DID YOU LAST DRINK? WATER . NAME OF PERSON DRIVING YOU HOME? KHLOE MAE . DO YOU HAVE ANY OTHER QUESTIONS OR CONCERNS NO . REVIEWED BY: PROVIDER: . VITAL SIGNS WT 247 LBS, HT 66.75 IN, BMI 38.97 INDEX, BP 169/81 MM HG, HR 85 /MIN, RR 16 /MIN, TEMP 98 F,1 F, OXYGEN SAT % 99%, NA INITIALS SC 10:35, REVIEWED BY: CM. ASSESSMENTS INTERVERTEBRAL DISC DISORDERS WITH RADICULOPATHY, LUMBOSACRAL REGION - M51.17 (PRIMARY) SPINAL STENOSIS, LUMBOSACRAL REGION - M48.07 PROCEDURES PRE PROCEDURE DIAGNOSIS LUMBOSACRAL DISC DISORDER WITH RADICULOPATHY, LUMBOSACRAL RADICULOPATHY, LUMBOSACRAL SPINAL STENOSIS POST PROCEDURE DIAGNOSIS LUMBOSACRAL RADICULOPATHY , LUMBOSACRAL DISC DISORDER WITH RADICULOPATHY, LUMBOSACRAL SPINAL STENOSIS PROCEDURE L5-S1 EPIDURAL STEROID INJECTION UNDER FLUOROSCOPIC GUIDANCE SURGEON DR. JOSE CORTEZ TRAFFIC COURT MAGISTRATE NONE ANESTHESIA LOCAL PRE PROCEDURE NOTE THE PATIENT HAS A HISTORY OF CHRONIC LOW BACK PAIN. I EVALUATE THE PATIENT AND REVIEWED THE CHART. I WENT OVER THE RISKS, ALTERNATIVES, AND BENEFITS ASSOCIATED WITH THIS PROCEDURE. THE PATIENT WOULD LIKE TO PROCEED AND GIVE CONSENT TO PERFORMED THE PROCEDURE. THE PATIENT DENIES UNEXPLAINABLE WEIGHT LOSS, FEVER, CHILLS, OR NEW CHANGES IN URINARY OR BOWEL CONTROL. DESCRIPTION OF PROCEDURE THE PATIENT WAS BROUGHT TO THE PROCEDURE ROOM AND PLACED IN THE PRONE POSITION. THE LUMBOSACRAL AREA WAS CLEANED WITH BETADINE SOLUTION AND DRAPED ASEPTICALLY. THE PROCEDURE WAS DONE UNDER STERILE CONDITIONS. I CHECKED LATERALITY AND THE LEVEL WHERE THE PROCEDURE WAS GOING TO BE PERFORMED WITH THE PATIENT AND THE SUPPORTING STAFF AT THE MOMENT OF THE TIME OUT IN THE PROCEDURE ROOM. UNDER FLUOROSCOPIC GUIDANCE, THE TARGET POINT WAS SELECTED AT THE INTERLAMINAR LEVEL OF L5-S1. LIDOCAINE WAS USED TO NUMB THE SKIN AND THE SUBCUTANEOUS TISSUE BELOW IT. EPIDURAL TUOHY NEEDLE, 17-GAUGE, WAS ADVANCED UNDER FLUOROSCOPIC GUIDANCE AND FOLLOWING PATIENT FEEDBACK UNTIL THE EPIDURAL SPACE WAS REACHED, 7 CM DEEP INTO THE SKIN BY THE LOSS OF RESISTANCE TECHNIQUE. ISOVUE M DYE 30%, 0.25 ML, WAS INJECTED SHOWING ADEQUATE SPREAD OF THE DYE. THEN, A SOLUTION OF 3 ML OF NORMAL SALINE WITH DEPO-MEDROL 60 MG WAS INJECTED SLOWLY FOLLOWING PATIENT FEEDBACK. THERE WAS NO EVIDENCE OF BLOOD, PARESTHESIA OR CEREBROSPINAL FLUID DURING THE PROCEDURE. THE PATIENT WAS SENT TO THE RECOVERY ROOM. THE PATIENT WAS MOVING THE EXTREMITIES AND DOING WELL. THERE WAS NO COMPLICATION DURING THE PROCEDURE. FLUOROSCOPY TIME WAS 38 SECONDS. POST PROCEDURE NOTE THE PATIENT WILL BE SEEN IN A FOLLOW UP IN THE NEXT FEW WEEKS. INSTRUCTIONS WERE GIVEN, QUESTIONS WERE ANSWERED, AND THE PATIENT EXPRESSED UNDERSTANDING AND AGREES WITH THE PLAN. I, MYNOR CEBALLOS, DOCUMENTED THE ABOVE INFORMATION ACTING A SCRIBE FOR DR. CORTEZ. I HAVE REVIEWED THE ABOVE DOCUMENT, WRITTEN BY MYNOR CEBALLOS SCRIBE AND I VERIFY THAT IT IS ACCURATE. DIAGNOSTIC IMAGING [facility] FLUORO GUIDE SPINE INJECTION (PAIN)[id number] PROCEDURE CODES 05286 LUMBAR/SACRAL W/ IMAGING 6045F RADXPS IN END [id number] DISPOSITION & COMMUNICATION FOLLOW UP 3 WEEKS ELECTRONICALLY SIGNED BY JOSE CORTEZ MD ON 06/05/2016 AT 08:54 PM EDT DISCLAIMER : THIS IS A VISIT SUMMARY EXTRACTED FROM THE [employer] CHART. IT IS NOT A COPY OF THE [employer] PROGRESS NOTE. PRETTY
== END ==
LOC: M PAIN 10:20
PROVIDERS: ATTEND Anesthesiology
DX: G89.29 Other chronic pain (principal); M51.17 Intervertebral disc disorders with radiculopathy, lumbosacral region; M48.07 Spinal stenosis, lumbosacral region; E11.9 Type 2 diabetes mellitus without complications; J98.4 Other disorders of lung; K21.9 Gastro-esophageal reflux disease without esophagitis; M19.90 Unspecified osteoarthritis, unspecified site; E78.5 Hyperlipidemia, unspecified; I10 Essential (primary) hypertension; G25.81 Restless legs syndrome; M79.7 Fibromyalgia; M05.9 Rheumatoid arthritis with rheumatoid factor, unspecified; Z79.84 Long term (current) use of oral hypoglycemic drugs; Z79.4 Long term (current) use of insulin; Z99.81 Dependence on supplemental oxygen; Z79.891 Long term (current) use of opiate analgesic; Z79.82 Long term (current) use of aspirin; Z79.52 Long term (current) use of systemic steroids; Z79.899 Other long term (current) drug therapy
CPT/HCPCS: 62323; J1030; Q9967

== ENCOUNTER → 2016-07-06 | Outpatient (CLI) | payer OTHER, MEDICAID, MEDICARE ==
[~2016-07-06] MED LIST changes: -ISOVUE-M 300 61% 15ML VIAL (Q9967) As Ordered ONE; -LIDOCAINE 1% SDV INJ 30 ML VIAL As Ordered ONE; -diazePAM 5 MG TAB As Ordered ONE; -methylPREDNISolone SUSP 40 MG/ML (DEPO-medrol) VIAL (J1030) As Ordered ONE; -oxyCODONE 5MG TAB As Ordered ONE
--- NOTE | 2016-07-27 01:22 | ECWPNPC ---
PATIENT NAME: ESTHER MAE : 1960 GENDER: FEMALE VISIT DATE: 07/06/2016 DISCHARGE DATE: 07/06/16 1041 VISIT LOCKED DATE TIME: PHYSICIAN: JERE HORTON RESOURCE: JERE HORTON REASON FOR APPOINTMENT 1. MEDICARE-PAIN HISTORY OF PRESENT ILLNESS HISTORY OF PRESENT ILLNESS: PAIN THE PATIENT DESCRIBES THE PAIN... FALL RISK SCREENING: SCREENING :NO FALLS IN THE PAST YEAR TODAY'S VISIT: NOTES: MEDICARE FOLLOWUP FOR LOW BACK PAIN. IS S/P LESB ON 06/01/14 WITH PAIN LEVEL AT 8/10 AND DECREASED TO 0- 2/10 FOR 24 HOURS. NOTES NO SUSTAINED IMPROVEMENT. PAIN RETURNED SUDDENLY AND WAS SHOOTING DOWN BOTH LEGS. DID NOT GO TO ER. HAS BEEN TAKING MORE FREQ PAIN MEDS., USUALLY AT NIGHT.MED MAKES IT TOLERABLE BUT NOT WORKING WELL BEFORE.. CURRENT MEDICATIONS TAKING FOLIC ACID 1 MG TABLET 3 TABLET ORALLY ONCE A DAY TAKING METFORMIN HCL 1000 MG TABLET 1 TAB(S) ORALLY BID TAKING FAMOTIDINE 40 MG TABLET 1 TABLET AT BEDTIME ORALLY ONCE A DAY TAKING BUSPIRONE HCL 15 MG TABLET 1 TABLET ORALLY TWICE A DAY TAKING PEN NEEDLES 31G X 6 MM MISCELLANEOUS DIRECTED INTRAMUSCULARLY DAILY TAKING ROPINIROLE HCL 0.5 MG TABLET 1 TAB ORALLY AT BEDTIME TAKING INSULIN SYRINGE/NEEDLE 28G X 1/2 MISCELLANEOUS 1- DX: 250.00 SUBCUTANEOUSLY DAILY TAKING PRAVASTATIN SODIUM 80 MG TABLET 1 TABLET ORALLY ONCE A DAY TAKING OXYGEN 2LPM DIRECTED NASAL CANNULA AT BEDTIME TAKING LANTUS 100 UNIT/ML SOLUTION INJECT 32 UNITS SUBCUTANEOUS TWICE DAILY TAKING ZYRTEC 10 MG TABLET 1 TABLET ORALLY ONCE A DAY TAKING HUMIRA PEN 40 MG/0.8ML KIT 0.8 ML SUBCUTANEOUS Q OTHER WEEK TAKING HYDROCHLOROTHIAZIDE 25 MG TABLET 1 TABLET ORALLY ONCE A DAY TAKING BYDUREON 2MG/VIAL 1 INJECTION SUBCUTANEOUSLY ONCE WEEKLY TAKING OXYBUTYNIN CHLORIDE ER 10 MG TABLET EXTENDED RELEASE 24 HOUR 1 TABLET ORALLY ONCE A DAY TAKING SPIRONOLACTONE 25 MG TABLET 1 TABLET ORALLY TWICE A DAY TAKING ASPIR-81 81 MG TABLET DELAYED RELEASE 1 TABLET ORALLY ONCE A DAY TAKING BACLOFEN 10 MG TABLET 1 TABLET WITH FOOD OR MILK ORALLY THREE TIMES A DAY TAKING PREDNISONE 10 MG TABLET 1 TABLET ORALLY DAILY TAKING LYRICA 200 MG CAPSULE 1 CAPSULE ORALLY TWICE A DAY MDD=2 TAKING NORCO 5-325 MG TABLET 1 TABLET NEEDED ORALLY EVERY 6 HRS MDD =3 NOT-TAKING CLOTRIMAZOLE-7 1 % CREAM 1 APPLICATION AT BEDTIME VAGINAL ONCE A DAY NOT-TAKING IMODIUM A-D 2 MG TABLET 2 TAB IN MORNING, 1 TAB AFTER EACH BM MAX 8 IN 24 HOURS ORALLY DIRECTED MEDICATION LIST REVIEWED AND RECONCILED WITH THE PATIENT PAST MEDICAL HISTORY DM CHRONIC LUNG DISEASE GERD ARTHRITIS BACK PAIN/NECK PAIN HYPERLIPIDEMIA HTN RLS FIBROMYALGIA RA PNEUMONIA ALLERGIES SEASONAL: RED, ITCHY EYES, HEADACHE, NASAL CONGESTION: ALLERGY SOCIAL HISTORY GENERAL: TOBACCO USE ARE YOU A:CURRENT SMOKER HOW MANY CIGARETTES A DAY DO YOU SMOKE?21-30 HOW SOON AFTER YOU WAKE UP DO YOU SMOKE YOUR FIRST CIGARETTE?6-30 MIN HOW OFTEN DO YOU SMOKE CIGARETTES?EVERY DAY PATIENT COUNSELED ON THE DANGERS OF TOBACCO USE AND URGED TO QUIT:07/06/2016 ARE YOU INTERESTED IN QUITTING?THINKING ABOUT QUITTING PREVIOUS QUIT ATTEMPTS?YES, MORE THAN 6 MONTHS AGO. HAS NICOTENE PATCHES COUNSELED THE PATIENT ON SMOKING CESSATION, EDUCATION [id number]/10/2017 PAIN CLINIC PFS, CLERGY, PUBLIC HEALTH REFERRALS CLERGY REFERRAL NEEDED?NO WAS THE PROVIDER NOTIFIED OF ANY PERTINENT INFO?NO PFS REFERRAL NEEDED?NO PUBLIC HEALTH REFERRAL NEEDED?NO PATIENT: ____. REVIEW OF SYSTEMS CONSTITUTIONAL: ANY CHANGE IN YOUR MEDICAL CONDITION? NO . CHILLS NO . FEVER NO . INFECTION: DO YOU HAVE NEW INFECTIONS? NO . DO YOU HAVE HISTORY OF MRSA? NO . MUSCULOSKELETAL: ANY NEW PATTERNS OF PAIN OR NUMBNESS? YES, PAIN IS WORSE SINCE LUMBAR EPIDURAL . GASTROENTEROLOGY: ANY NEW CHANGE IN BOWEL CONTROL? NO . GENITOURINARY: ANY NEW CHANGE IN BLADDER CONTROL? NO . IS THERE A CHANCE YOU COULD BE ? NO . HEMATOLOGY/LYMPH: DO YOU TAKE ANY BLOOD THINNERS? (FOR EXAMPLE- COUMADIN, PLAVIX, AGGRENOX, PLATEL, PRADAXA, OR XARELTO) NO . WHEN WAS YOUR LAST DOSE? DATE: TIME: . NEUROLOGY: HAVE YOU FALLEN IN THE PAST 6 MONTHS? NO . ANY NEW EXTREMITY NUMBNESS OR WEAKNESS? NO . CARDIOLOGY: DO YOU HAVE A PACEMAKER OR DEFIBRILLATOR? NO . RESPIRATORY: HAVE YOU BEEN SICK IN THE PAST WEEK? NO . FEVER NO . FLU LIKE SYMPTOMS? NO . CHRONIC LUNG DISEASES HAS FOLLOWED UP WITH PULMONARY - IS NOW USING OXYGEN PRN ONLY. PLAN IS TO D/C IN A YEAR'S TIME . DO YOU USE ANY TYPE OF TOBACCO (SMOKE, SMOKELESS, CHEW)? STATES HAS A PLAN FOR SMOKING CESSATION. . COUGH NO . INTEGUMENTARY: DO YOU HAVE ANY RASHES OR OPEN SORES? NO . ALLERGIC/IMMUNO: ARE YOU ALLERGIC TO SHELLFISH OR IV DYE? NO . ANY NEW ALLERGIES? NO . PSYCHIATRIC: DO YOU HAVE THOUGHTS OF HURTING YOURSELF OR SOMEONE ELSE? NO . ARE YOU ABUSED, NEGLECTED, OR IN AN UNSAFE ENVIRONMENT? NO . ENDOCRINOLOGY: ARE YOU DIABETIC? YES, FSBS 138 THIS A.M . OTHER: DO YOU NEED ANY PRESCRIPTIONS? NO . IF YES, PLEASE LIST: ____ . ANY NEW PROBLEMS WITH YOUR MEDICATIONS? NO . WHEN DID YOU LAST EAT? ____ . WHEN DID YOU LAST DRINK? ____ . WHAT DID YOU LAST DRINK? ____ . NAME OF PERSON DRIVING YOU HOME? ____ . DO YOU HAVE ANY OTHER QUESTIONS OR CONCERNS YES, NO RELIEF FROM LUMBAR EPIDURAL, IF ANYTHING PAIN IS WORSE . REVIEWED BY: PROVIDER: JERE PARNELL . VITAL SIGNS WT 270.6 LBS, HT 66.75 IN, BMI 42.70 INDEX, BP 147/81 MM HG, HR 95 /MIN, RR 18 /MIN, TEMP 97.1 F, OXYGEN SAT % 98%, NA INITIALS TL 0938, REVIEWED BY: AD. EXAMINATION GENERAL EXAMINATION: GENERAL APPEARANCE:COLOR PINK, SKIN WARM, DRY. PSYCHALERT , ORIENTED X 3 , APPROPRIATE MOOD AND AFFECT . LUNGS:DECREASED AIRFLOW THROUHOUT ALL LUNG BERRY. . HEART:HEART RATE REGULAR. MUSCULOSKELETAL:MUSCLE STRENGTH TESTING 5/5 BILATERAL UPPER AND LOWER EXTREMITIES. EXQUSITE TENDERNESS WITH PALPATION OVER LUMBAR SPINOUS PROCESSES., TRIGGER POINTS AND TIGHT FIBROUS BANDS IDENTIFIED OVER LUMBAR PARAVERTEBRAL MUSCLES AND INTO THE SACRUM. SLOW TO RISE TO STANDING POSITION. POSTURE UPRIGHT. GAIT WIDEBASED.. ASSESSMENTS LUMBAR DISC DISPLACEMENT WITHOUT MYELOPATHY - M51.26 (PRIMARY) MYALGIA - M79.1 TREATMENT LUMBAR DISC DISPLACEMENT WITHOUT MYELOPATHY STOP NORCO TABLET, 5-325 MG, 1 TABLET NEEDED, ORALLY, EVERY 6 HRS MDD =3 START PERCOCET TABLET, 5-325 MG, 1 TABLET NEEDED, ORALLY, EVERY 6-8 HRS PRN PAIN MDD=3, 30 DAY(S), 90, REFILLS 0 [facility] SPINE, L.S. WITHOUT [id number],SUSAN Haseeb 07/06/2016 10:13:11 AM > OPEN MRI - INCREASED LUMBAR RADICULOPATHY TRANSFORAMINAL LUMB JERE SHAFFER 07/06/2016 10:15:34 AM > BILATERAL L$-5, L5-S1 TRANSFORAMINAL NOTES: USE MEDS INFREQUENTLY. DO NOT DRIVE AND TAKE PAIN MEDS. HOLD DIABESTES MEDS AM OF PROCEDURE. HOLD HUMIRA FOR 10 DAYS PRIOR TO PROCEDURE, AND RESTART 5 DAYS AFTER,LUMBAR EPIDURAL INJECTION: YOUR PROCEDURE MATERIAL WAS PRINTED,WHAT IS LUMBAR EPIDURAL INJECTION? MATERIAL WAS PRINTED, OPTION FOR EPIDURAL INJECTIONS WERE DISCUSSED WITH THE PATIENT. FDA CONCERNS AND WARNING WERE REVIEWED INCLUDING THE RISK OF BLEEDING, RISK OF INFECTION, RISK OF INCREASED PAIN OR NEURALGIA, AND RISK OF PARALYSIS. PATIENT'S QUESTIONS WERE ANSWERED AND HE/SHE WISHES TO MOVE FORWARD WITH EPIDURAL INJECTION. CLINICAL NOTES: ISTOP REGISTRY REVIEWED AND DEMNOSTRATES COMPLLIANCE. BRINGS IN MEDICATIONS WHICH IS APPROPRIATE FOR WHAT WAS DISPENSED. RECENT URINE TOXICOLOGY REVIEWED. NO UNAUTHORIZED MEDICATIONS. NO ILLICIT SUBSTANCES AND PRESCRIBED MEDICATIONS WERE PRESENT. PREVENTIVE MEDICINE PAIN CLINIC TEACHING: MEDICATIONS PRINTED INFORMATION ON PERCOCET GIVEN TO AND EXPLAINED TO PT. AND SHE VERBALIZED UNDERSTANDING. PT IS AWARE TO STOP HYDROCODONE. AD. PROCEDURE TEACHING PRINTED INFORMATION ON LUMBAR EPIDURAL GIVEN TO AND EXPLAINED TO PT. ALONG WITH PRE-PROCEDURE INSTRUCTIONS AND PT. VERBALIZED UNDERSTANDING ON BOTH. AD. PROCEDURE CODES FA211 ESTABILISHED PATIENT [facility] FACILITY CHARGE G8730 PAIN ASSESS POS TOOL F/U PLAN DOC [id number] DOC MEDS VERIFIED W/PT OR RE DISPOSITION & COMMUNICATION FOLLOW UP AFTER INJECTION (REASON: OPEN MRI - CHECK AUTH AND FOR BILATERAL TRANS FORAMINAL AT L4-5, L5-S1 (ON HUMIRA)) ELECTRONICALLY SIGNED BY JESSE ALLEN ON 07/26/2016 AT 08:36 AM EDT DISCLAIMER : THIS IS A VISIT SUMMARY EXTRACTED FROM THE [employer] CHART. IT IS NOT A COPY OF THE [employer] PROGRESS NOTE. PRETTY
== END ==
LOC: M PAIN 09:20
PROVIDERS: ATTEND Nurse Practitioner Family
DX: G89.29 Other chronic pain (principal); M51.26 Other intervertebral disc displacement, lumbar region; M79.1 Myalgia; E11.9 Type 2 diabetes mellitus without complications; K21.9 Gastro-esophageal reflux disease without esophagitis; M19.90 Unspecified osteoarthritis, unspecified site; E78.5 Hyperlipidemia, unspecified; I10 Essential (primary) hypertension; G25.81 Restless legs syndrome; M06.9 Rheumatoid arthritis, unspecified; F17.210 Nicotine dependence, cigarettes, uncomplicated; J30.2 Other seasonal allergic rhinitis; Z79.84 Long term (current) use of oral hypoglycemic drugs; Z79.4 Long term (current) use of insulin; Z79.82 Long term (current) use of aspirin; Z79.899 Other long term (current) drug therapy; Z79.52 Long term (current) use of systemic steroids; Z79.891 Long term (current) use of opiate analgesic

== ENCOUNTER → 2016-07-27 | Outpatient (CLI) | payer MEDICARE, MEDICAID, OTHER ==
[~2016-07-27] MED LIST changes: +BUPIVACAINE HCL 0.25% 30 ML VIAL As Ordered ONE; +ISOVUE-M 300 61% 15ML VIAL (Q9967) As Ordered ONE; +LIDOCAINE 1% SDV INJ 30 ML VIAL As Ordered ONE; +dexameTHASONE 10 MG/1 ML VIAL PRES.FREE (J1100) As Ordered ONE; +diazePAM 5 MG TAB As Ordered ONE; +oxyCODONE 5MG TAB As Ordered ONE
--- NOTE | 2016-07-27 17:55 | REP ---
FLUOROSCOPIC GUIDED SPINAL INJECTION: The films were reviewed with Dr. Escalona. The patient has a history of low back pain. The portable C-ARM was provided in the OR by Dr. Mendoza for fluoroscopic guidance. 47 intraoperative fluoroscopic spot films were obtained for needle placement verification for right lumbar transforaminal injection. The films are on the PACS system and are available for review. 48 seconds of fluoroscopic time was utilized for this procedure. Reviewed by MARLENY Lr 07/28/2016 12:38 PEdited and Signed by German Escalona MD 07/28/2016 07:22 P
--- NOTE | 2016-07-31 23:29 | ECWPNPC ---
PATIENT NAME: ESTHER MAE : 1960 GENDER: FEMALE VISIT DATE: 07/27/2016 DISCHARGE DATE: 07/27/16 1433 VISIT LOCKED DATE TIME: PHYSICIAN: JOSE CORTEZ RESOURCE: JOSE CORTEZ REASON FOR APPOINTMENT 1. TRANSFORAMINAL HISTORY OF PRESENT ILLNESS HISTORY OF PRESENT ILLNESS: PAIN THE PATIENT DESCRIBES THE PAIN... FALL RISK SCREENING: SCREENING :NO FALLS IN THE PAST YEAR CURRENT MEDICATIONS TAKING FOLIC ACID 1 MG TABLET 3 TABLET ORALLY ONCE A DAY, NOTES: 07/26/16599 TAKING METFORMIN HCL 1000 MG TABLET 1 TAB(S) ORALLY BID, NOTES: 07/26/162099 TAKING FAMOTIDINE 40 MG TABLET 1 TABLET AT BEDTIME ORALLY ONCE A DAY, NOTES: 07/26/162099 TAKING BUSPIRONE HCL 15 MG TABLET 1 TABLET ORALLY TWICE A DAY, NOTES: 07/26/162099 TAKING PEN NEEDLES 31G X 6 MM MISCELLANEOUS DIRECTED INTRAMUSCULARLY DAILY TAKING ROPINIROLE HCL 0.5 MG TABLET 1 TAB ORALLY AT BEDTIME, NOTES: 07/26/162099 TAKING INSULIN SYRINGE/NEEDLE 28G X 1/2 MISCELLANEOUS 1- DX: 250.00 SUBCUTANEOUSLY DAILY TAKING PRAVASTATIN SODIUM 80 MG TABLET 1 TABLET ORALLY ONCE A DAY, NOTES: 07/26/162099 TAKING OXYGEN 2LPM DIRECTED NASAL CANNULA AT BEDTIME TAKING LANTUS 100 UNIT/ML SOLUTION INJECT 32 UNITS SUBCUTANEOUS TWICE DAILY, NOTES: 07/26/162099 TAKING ZYRTEC 10 MG TABLET 1 TABLET ORALLY ONCE A DAY, NOTES: 07/26/16599 TAKING HUMIRA PEN 40 MG/0.8ML KIT 0.8 ML SUBCUTANEOUS Q OTHER WEEK TAKING HYDROCHLOROTHIAZIDE 25 MG TABLET 1 TABLET ORALLY ONCE A DAY, NOTES: 07/26/16599 TAKING BYDUREON 2MG/VIAL 1 INJECTION SUBCUTANEOUSLY ONCE WEEKLY, NOTES: 07/26/16599 TAKING OXYBUTYNIN CHLORIDE ER 10 MG TABLET EXTENDED RELEASE 24 HOUR 1 TABLET ORALLY ONCE A DAY, NOTES: 07/26/16599 TAKING SPIRONOLACTONE 25 MG TABLET 1 TABLET ORALLY TWICE A DAY, NOTES: 07/26/16599 TAKING ASPIR-81 81 MG TABLET DELAYED RELEASE 1 TABLET ORALLY ONCE A DAY, NOTES: 07/26/16599 TAKING BACLOFEN 10 MG TABLET 1 TABLET WITH FOOD OR MILK ORALLY THREE TIMES A DAY, NOTES: 07/26/162099 TAKING PREDNISONE 10 MG TABLET 1 TABLET ORALLY DAILY, NOTES: 07/26/16599 TAKING LYRICA 200 MG CAPSULE 1 CAPSULE ORALLY TWICE A DAY MDD=2, NOTES: 07/26/162099 TAKING PERCOCET 5-325 MG TABLET 1 TABLET NEEDED ORALLY EVERY 6-8 HRS PRN PAIN MDD=3, NOTES: 07/26/162099 NOT-TAKING CLOTRIMAZOLE-7 1 % CREAM 1 APPLICATION AT BEDTIME VAGINAL ONCE A DAY NOT-TAKING IMODIUM A-D 2 MG TABLET 2 TAB IN MORNING, 1 TAB AFTER EACH BM MAX 8 IN 24 HOURS ORALLY DIRECTED MEDICATION LIST REVIEWED AND RECONCILED WITH THE PATIENT PAST MEDICAL HISTORY DM CHRONIC LUNG DISEASE GERD ARTHRITIS BACK PAIN/NECK PAIN HYPERLIPIDEMIA HTN RLS FIBROMYALGIA RA PNEUMONIA ALLERGIES SEASONAL: RED, ITCHY EYES, HEADACHE, NASAL CONGESTION: ALLERGY REVIEW OF SYSTEMS CONSTITUTIONAL: ANY CHANGE IN YOUR MEDICAL CONDITION? YES PT REPORTS SHE WAS DIAGNOSED WITH &QUOT;CLINICAL PNEUMONIA&QUOT; 3 WEEKS AGO. ON PREDNISONE 20 MG, TWO TABS DAILY, LAST DOSE 07/26/16599. ON ANTIBIOTICS, LAST DOSE 07/21 . CHILLS NO . FEVER NO . INFECTION: DO YOU HAVE NEW INFECTIONS? YES PNEUMONIA . DO YOU HAVE HISTORY OF MRSA? NO . MUSCULOSKELETAL: ANY NEW PATTERNS OF PAIN OR NUMBNESS? NO . GASTROENTEROLOGY: ANY NEW CHANGE IN BOWEL CONTROL? NO . GENITOURINARY: ANY NEW CHANGE IN BLADDER CONTROL? NO . IS THERE A CHANCE YOU COULD BE ? NO . HEMATOLOGY/LYMPH: DO YOU TAKE ANY BLOOD THINNERS? (FOR EXAMPLE- COUMADIN, PLAVIX, AGGRENOX, PLATEL, PRADAXA, OR XARELTO) NO . WHEN WAS YOUR LAST DOSE? DATE: TIME: . NEUROLOGY: HAVE YOU FALLEN IN THE PAST 6 MONTHS? NO . ANY NEW EXTREMITY NUMBNESS OR WEAKNESS? NO . CARDIOLOGY: DO YOU HAVE A PACEMAKER OR DEFIBRILLATOR? NO . RESPIRATORY: HAVE YOU BEEN SICK IN THE PAST WEEK? YES ON STEROIDS AND ANTIBIOTICS FOR PNEUMONIA . FEVER NO . FLU LIKE SYMPTOMS? NO . COUGH NO . INTEGUMENTARY: DO YOU HAVE ANY RASHES OR OPEN SORES? NO . ALLERGIC/IMMUNO: ARE YOU ALLERGIC TO SHELLFISH OR IV DYE? NO . ANY NEW ALLERGIES? NO . PSYCHIATRIC: DO YOU HAVE THOUGHTS OF HURTING YOURSELF OR SOMEONE ELSE? NO . ARE YOU ABUSED, NEGLECTED, OR IN AN UNSAFE ENVIRONMENT? NO . ENDOCRINOLOGY: ARE YOU DIABETIC? YES . OTHER: DO YOU NEED ANY PRESCRIPTIONS? NO . IF YES, PLEASE LIST: ____ . ANY NEW PROBLEMS WITH YOUR MEDICATIONS? NO . WHEN DID YOU LAST EAT? ____07/26/16 2100 . WHEN DID YOU LAST DRINK? ____07/26/16 2400 . WHAT DID YOU LAST DRINK? ____WATER . NAME OF PERSON DRIVING YOU HOME? ____CRYSTAL . DO YOU HAVE ANY OTHER QUESTIONS OR CONCERNS NO . REVIEWED BY: PROVIDER: . VITAL SIGNS WT 265.0 LBS, HT 66.75 IN, BMI 41.81 INDEX, BP 149/94 MM HG, HR 89 /MIN, RR 18 /MIN, TEMP 97.2 F, OXYGEN SAT % 93%, SAFE IN ENV? (Y/N) YES, NA INITIALS TL 1119, REVIEWED BY: LASON O2 AT 3L VIA NASAL CANNULA. ASSESSMENTS INTERVERTEBRAL DISC DISORDERS WITH RADICULOPATHY, LUMBAR REGION - M51.16 (PRIMARY) PROCEDURES PN LUMBAR TRANSFORAMINAL BLOCKS PRE PROCEDURE DIAGNOSIS LUMBAR DISC DISORDER WITH RADICULOPATHY POST PROCEDURE DIAGNOSIS LUMBAR DISC DISORDER WITH RADICULOPATHY PROCEDURE RIGHT L4 AND RIGHT L5 TRANSFORAMINAL EPIDURAL STEROID INJECTION UNDER FLUOROSCOPIC GUIDANCE SURGEON DR JOSE CORTEZ SEED ANALYSIS LABORATORY ASSISTANT NONE ANESTHESIA LOCAL PRE PROCEDURE NOTE PATIENT WITH HISTORY OF CHRONIC LOW BACK PAIN. I EVALUATE THE PATIENT AND REVIEWED THE CHART. I WENT OVER THE RISKS, ALTERNATIVES, AND BENEFITS ASSOCIATED WITH THIS PROCEDURE. THE PATIENT WOULD LIKE TO PROCEED AND GIVE CONSENT TO PERFORMED THE PROCEDURE. THE PATIENT DENIES UNEXPLAINABLE WEIGHT LOSS, FEVER, CHILLS, OR CHANGES IN URINARY OR BOWEL CONTROL DESCRIPTION OF PROCEDURE THE PATIENT WAS BROUGHT TO THE PROCEDURE ROOM AND PLACED IN THE PRONE POSITION. THE LUMBOSACRAL AREA WAS CLEANED WITH BETADINE SOLUTION AND DRAPED ASEPTICALLY. THE PROCEDURE WAS DONE UNDER STERILE CONDITIONS. I CHECKED LATERALITY AND THE LEVEL WHERE THE PROCEDURE WAS GOING TO BE PERFORMED WITH THE PATIENT AND THE SUPPORTING STAFF AT THE MOMENT OF THE TIME OUT IN THE PROCEDURE ROOM. UNDER FLUOROSCOPIC GUIDANCE, TARGETS WERE SELECTED AT THE RIGHT TRANSFORAMINAL OPENING OF L4 AND THE RIGHT TRANSFORAMINAL OPENING OF L5. TARGET POINT WAS SELECTED AFTER LATERAL ROTATION AND TILT OF THE MAGNIFIER OF THE C-ARM. LIDOCAINE 0.5% WAS USED TO NUMB THE SKIN AND THE SUBCUTANEOUS TISSUE BELOW IT. AN EPIMED INTRODUCER 18-GAUGE WAS ADVANCED UNTIL WE WENT CLOSE TO THE SELECTED TRANSFORAMINAL OPENINGS. AFTER PROPER POSITION OF THE NEEDLES WAS ACHIEVED, A 22-GAUGE EPIMED NEEDLE WAS PLACED INSIDE OF THE INTRODUCER AND ADVANCED TO THE TRANSFORAMINAL OPENING OF THE SELECTED SITES. WHEN PROPER POSITION OF THE NEEDLE WAS ACHIEVED, ISOVUE M DYE 30%, 0.25 ML, WAS INJECTED SHOWING ADEQUATE SPREAD OF THE DYE. THIS WAS DONE UNDER DIGITAL SUBTRACTION AND ANGIOGRAPHY. THERE WAS NO VASCULAR UPDATE. THEN, A SOLUTION OF 2 ML OF BUPIVACAINE 0.25% AND DEXAMETHASONE 10 MG WAS INJECTED AT EACH SITE. THERE WAS NO EVIDENCE OF BLOOD, PARESTHESIA OR CEREBROSPINAL FLUID DURING THE PROCEDURE. THE PATIENT WAS SENT TO THE RECOVERY ROOM. THE PATIENT WAS MOVING THE EXTREMITIES AND DOING WELL. THERE WAS NO COMPLICATION DURING THE PROCEDURE. FLUOROSCOPY TIME WAS 48 SECONDS POST PROCEDURE NOTE THE PROCEDURE DONE WAS DISCUSSED WITH THE PATIENT. THE PATIENT WILL BE SEEN IN A FOLLOW UP IN THE NEXT FEW WEEKS. INSTRUCTIONS WERE GIVEN, QUESTIONS WERE ANSWERED, AND THE PATIENT EXPRESSED UNDERSTANDING AND AGREES WITH THE PLAN. I, CARMELA LEPE, DOCUMENTED THE ABOVE INFORMATION ACTING A SCRIBE FOR DR. CORTEZ. I HAVE REVIEWED THE ABOVE DOCUMENT, WRITTEN BY CARMELA ROSS AND I VERIFY THAT IT IS [facility] FLUORO GUIDE SPINE INJECTION (PAIN)[id number] PROCEDURE CODES 07339 INJ FORAMEN EPIDURAL L/S 89659 INJ FORAMEN EPIDURAL ADD-ON 6045F RADXPS IN END [id number] PXD DISPOSITION & COMMUNICATION FOLLOW UP 3 WEEKS ELECTRONICALLY SIGNED BY JOSE CORTEZ MD ON 07/31/2016 AT 05:27 PM EDT DISCLAIMER : THIS IS A VISIT SUMMARY EXTRACTED FROM THE [email or web address] CHART. IT IS NOT A COPY OF THE [email or web address] PROGRESS NOTE. MTDD
== END ==
LOC: M PAIN 11:40
PROVIDERS: ATTEND Anesthesiology
DX: G89.29 Other chronic pain (principal); M51.16 Intervertebral disc disorders with radiculopathy, lumbar region; E11.9 Type 2 diabetes mellitus without complications; K21.9 Gastro-esophageal reflux disease without esophagitis; M06.9 Rheumatoid arthritis, unspecified; E78.5 Hyperlipidemia, unspecified; I10 Essential (primary) hypertension; G25.81 Restless legs syndrome; M79.1 Myalgia; J30.2 Other seasonal allergic rhinitis; M48.07 Spinal stenosis, lumbosacral region; Z79.84 Long term (current) use of oral hypoglycemic drugs; Z79.4 Long term (current) use of insulin; Z79.82 Long term (current) use of aspirin; Z79.52 Long term (current) use of systemic steroids; Z79.891 Long term (current) use of opiate analgesic; Z79.899 Other long term (current) drug therapy
CPT/HCPCS: 64483; 64484; J1100; Q9967

== ENCOUNTER → 2016-08-23 | Outpatient (CLI) | payer MEDICARE, OTHER ==
[~2016-08-23] MED LIST changes: -BUPIVACAINE HCL 0.25% 30 ML VIAL As Ordered ONE; -CELE-19 PO; +CELE1CAP4 PO; -FIBE500T2 PO; +FIBE500T5 PO; -FOLI1TAB2 PO; +FOLI1TAB4 PO; +HYDR-3363 PO; -HYDR25T PO; -ISOVUE-M 300 61% 15ML VIAL (Q9967) As Ordered ONE; +LEVO750T13 PO; -LEVO750T33 PO; -LIDOCAINE 1% SDV INJ 30 ML VIAL As Ordered ONE; -MELO7.5T6 PO; +MELO7.5T7 PO; +PERC5TAB12 PO; -PERC5TAB6 PO; +VOLT1GEL15 TOP; -VOLT1GEL24 TOP; -dexameTHASONE 10 MG/1 ML VIAL PRES.FREE (J1100) As Ordered ONE; -diazePAM 5 MG TAB As Ordered ONE; -oxyCODONE 5MG TAB As Ordered ONE
--- NOTE | 2016-09-09 01:04 | ECWPNPC ---
PATIENT NAME: ESTHER MAE : 1960 GENDER: FEMALE VISIT DATE: 08/23/2016 DISCHARGE DATE: 08/23/16 1147 VISIT LOCKED DATE TIME: PHYSICIAN: JERE HORTON RESOURCE: JERE HORTON REASON FOR APPOINTMENT 1. NON COMP, POST TRANSFORAMINAL HISTORY OF PRESENT ILLNESS HISTORY OF PRESENT ILLNESS: PAIN THE PATIENT DESCRIBES THE PAIN... FALL RISK SCREENING: SCREENING :NO FALLS IN THE PAST YEAR TODAY'S VISIT: NOTES: MEDICARE FOLLOWUP FOR LOW BACK PAIN. IS S/P RIGHT L4 AND L5 TRANSFORAMINAL EPIDURAL. HAD 1 DAY OF PAIN RELIEF AND THEN PAIN RETURNED. HAS BEEN HAVING SEVERE MUSCLE SPASMS. NECK BAD LOW BACK. WITH NECK SPASMS HANDS AND ARMS GO NUMB. . CURRENT MEDICATIONS TAKING FOLIC ACID 1 MG TABLET 3 TABLET ORALLY ONCE A DAY TAKING METFORMIN HCL 1000 MG TABLET 1 TAB(S) ORALLY BID TAKING FAMOTIDINE 40 MG TABLET 1 TABLET AT BEDTIME ORALLY ONCE A DAY TAKING BUSPIRONE HCL 15 MG TABLET 1 TABLET ORALLY TWICE A DAY TAKING PEN NEEDLES 31G X 6 MM MISCELLANEOUS DIRECTED INTRAMUSCULARLY DAILY TAKING ROPINIROLE HCL 0.5 MG TABLET 1 TAB ORALLY AT BEDTIME TAKING INSULIN SYRINGE/NEEDLE 28G X 1/2 MISCELLANEOUS 1- DX: 250.00 SUBCUTANEOUSLY DAILY TAKING PRAVASTATIN SODIUM 80 MG TABLET 1 TABLET ORALLY ONCE A DAY TAKING OXYGEN 2LPM DIRECTED NASAL CANNULA AT BEDTIME TAKING LANTUS 100 UNIT/ML SOLUTION INJECT 32 UNITS SUBCUTANEOUS TWICE DAILY TAKING ZYRTEC 10 MG TABLET 1 TABLET ORALLY ONCE A DAY TAKING HYDROCHLOROTHIAZIDE 25 MG TABLET 1 TABLET ORALLY ONCE A DAY TAKING BYDUREON 2MG/VIAL 1 INJECTION SUBCUTANEOUSLY ONCE WEEKLY TAKING OXYBUTYNIN CHLORIDE ER 10 MG TABLET EXTENDED RELEASE 24 HOUR 1 TABLET ORALLY ONCE A DAY TAKING SPIRONOLACTONE 25 MG TABLET 1 TABLET ORALLY TWICE A DAY TAKING ASPIR-81 81 MG TABLET DELAYED RELEASE 1 TABLET ORALLY ONCE A DAY TAKING BACLOFEN 10 MG TABLET 1 TABLET WITH FOOD OR MILK ORALLY THREE TIMES A DAY TAKING PREDNISONE 10 MG TABLET 1 TABLET ORALLY DAILY TAKING LYRICA 200 MG CAPSULE 1 CAPSULE ORALLY TWICE A DAY MDD=2 TAKING PERCOCET 5-325 MG TABLET 1 TABLET NEEDED ORALLY EVERY 6-8 HRS PRN PAIN MDD=3 NOT-TAKING HUMIRA PEN 40 MG/0.8ML KIT 0.8 ML SUBCUTANEOUS Q OTHER WEEK NOT-TAKING CLOTRIMAZOLE-7 1 % CREAM 1 APPLICATION AT BEDTIME VAGINAL ONCE A DAY NOT-TAKING IMODIUM A-D 2 MG TABLET 2 TAB IN MORNING, 1 TAB AFTER EACH BM MAX 8 IN 24 HOURS ORALLY DIRECTED MEDICATION LIST REVIEWED AND RECONCILED WITH THE PATIENT PAST MEDICAL HISTORY DM CHRONIC LUNG DISEASE GERD ARTHRITIS BACK PAIN/NECK PAIN HYPERLIPIDEMIA HTN RLS FIBROMYALGIA RA PNEUMONIA ALLERGIES SEASONAL: RED, ITCHY EYES, HEADACHE, NASAL CONGESTION: ALLERGY SURGICAL HISTORY L KNEE REPLACEMENT 2013 CHOLECYSTECTOMY LEFT SHOULDER REPAIR [facility]/MAJOR DIAGNOSTIC PROCEDURE SURGICALY RELATED PNEUMONIA-RESP FAILURE ON BIPAP 12/28/15 REVIEW OF SYSTEMS REVIEWED BY: PROVIDER: JERE PARNELL . CONSTITUTIONAL: ANY CHANGE IN YOUR MEDICAL CONDITION? NO . CHILLS NO . FEVER NO . INFECTION: DO YOU HAVE NEW INFECTIONS? NO . DO YOU HAVE HISTORY OF MRSA? NO . MUSCULOSKELETAL: ANY NEW PATTERNS OF PAIN OR NUMBNESS? YES, PT C/O MUSCLE SPASMS IN NECK RADIATING DOWN ARMS MAKING ARMA NUMB. LOWER BACK PAIN IS BAD. PT STATES SHE HAD LUMBAR TRANSFORAMINAL BLOCK DONE 07/27/16. PRE-PROCEDURE PAIN WAS 10/10. POST PROCEDURE PAIN WAS 4/10, INCREASING IN INTENSITY DAILY. . GASTROENTEROLOGY: ANY NEW CHANGE IN BOWEL CONTROL? NO . GENITOURINARY: ANY NEW CHANGE IN BLADDER CONTROL? NO . IS THERE A CHANCE YOU COULD BE ? NO . HEMATOLOGY/LYMPH: DO YOU TAKE ANY BLOOD THINNERS? (FOR EXAMPLE- COUMADIN, PLAVIX, AGGRENOX, PLATEL, PRADAXA, OR XARELTO) NO . WHEN WAS YOUR LAST DOSE? DATE: TIME: . NEUROLOGY: HAVE YOU FALLEN IN THE PAST 6 MONTHS? YES, 2 WEEKS AGO, TRIPPED ON CAT IN THE DARK, FALLING ON BACK. . ANY NEW EXTREMITY NUMBNESS OR WEAKNESS? NO . CARDIOLOGY: DO YOU HAVE A PACEMAKER OR DEFIBRILLATOR? NO . RESPIRATORY: HAVE YOU BEEN SICK IN THE PAST WEEK? NO . FEVER NO . FLU LIKE SYMPTOMS? NO . CHRONIC LUNG DISEASES CONTINUES WITH OXYGEN - 4L/NC - USES INCONSISTANLY - DOES WEAR IT AT NITE. . DO YOU USE ANY TYPE OF TOBACCO (SMOKE, SMOKELESS, CHEW)? HAS CUT BACK ON SMOKING. . COUGH NO . INTEGUMENTARY: DO YOU HAVE ANY RASHES OR OPEN SORES? NO . ALLERGIC/IMMUNO: ARE YOU ALLERGIC TO SHELLFISH OR IV DYE? NO . ANY NEW ALLERGIES? NO . PSYCHIATRIC: DO YOU HAVE THOUGHTS OF HURTING YOURSELF OR SOMEONE ELSE? NO . ARE YOU ABUSED, NEGLECTED, OR IN AN UNSAFE ENVIRONMENT? NO . ENDOCRINOLOGY: ARE YOU DIABETIC? YES . OTHER: DO YOU NEED ANY PRESCRIPTIONS? YES, PERCOSET . IF YES, PLEASE LIST: ____ . ANY NEW PROBLEMS WITH YOUR MEDICATIONS? NO . WHEN DID YOU LAST EAT? ____ . WHEN DID YOU LAST DRINK? ____ . WHAT DID YOU LAST DRINK? ____ . NAME OF PERSON DRIVING YOU HOME? ____ . DO YOU HAVE ANY OTHER QUESTIONS OR CONCERNS NO . VITAL SIGNS WT 267.6 LBS, HT 66.75 IN, BMI 42.22 INDEX, BP 148/87 MM HG, HR 90 /MIN, RR 20 /MIN, TEMP 97.2 F, OXYGEN SAT % 96%, SAFE IN ENV? (Y/N) Y, NA INITIALS TL 1033, REVIEWED BY: TREE. EXAMINATION GENERAL EXAMINATION: GENERAL APPEARANCE:COLOR PINK, SKIN WARM, DRY. PSYCHALERT , ORIENTED X 3 , APPROPRIATE MOOD AND AFFECT . LUNGS:DECREASED AIR ENTRY AT BASES, NO WHEEZES, RALES OR RHONCHI. . HEART:HEART RATE REGULAR. MUSCULOSKELETAL:MUSCLE STRENGTH TESTING 5/5 BILATERAL UPPER AND LOWER EXTREMITIES. EXQUSITE TENDERNESS WITH PALPATION OVER LUMBAR SPINOUS PROCESSES., TRIGGER POINTS AND TIGHT FIBROUS BANDS IDENTIFIED OVER LUMBAR PARAVERTEBRAL MUSCLES AND INTO THE SACRUM. SLOW TO RISE TO STANDING POSITION. POSTURE UPRIGHT. GAIT WIDEBASED.. ASSESSMENTS LUMBAR DISC DISPLACEMENT WITHOUT MYELOPATHY - M51.26 (PRIMARY) MYALGIA - M79.1 TREATMENT LUMBAR DISC DISPLACEMENT WITHOUT MYELOPATHY REFILL ROPINIROLE HCL TABLET, 0.5 MG, 2 TAB, ORALLY, AT BEDTIME, 30 DAY(S), 60, REFILLS 2 STOP BACLOFEN TABLET, 10 MG, 1 TABLET WITH FOOD OR MILK, ORALLY, THREE TIMES A DAY START TIZANIDINE HCL TABLET, 2 MG, 1 TABLET NEEDED, ORALLY, TAKE 1 TAB MORNING AND MIDDAY AND 2 TABS AT BEDTIME, 30 DAY(S), 120, REFILLS 2 START PERCOCET TABLET, 5-325 MG, 1 TABLET NEEDED, ORALLY, EVERY 6 HRS PRN PAIN MDD=2, 30 DAY(S), 45, REFILLS 0 INJECTION FACET JOINT/NERVE LUMBAR/SACRALCLIFFORDJERE 08/23/2016 11:32:37 AM > DIAGNOSTIC LUMBAR FACET BLOCK RIGHT L4-5, L5-S1 NOTES: HOLD PREDNISONE 5 DAYS BEFORE INJECTION. TAKE BLOOD SUGAR AM OF PROCEDURE - HOLD DIABETES MEDS AM OF THE PROCEDURE,FACET JOINT INJECTION MATERIAL WAS PRINTED, REVIEWED AND GIVEN TO PT. PROCEDURE CODES FA211 ESTABILISHED PATIENT [facility] FACILITY CHARGE G8730 PAIN ASSESS POS TOOL F/U PLAN DOC G8427 DOC MEDS VERIFIED W/PT OR RE DISPOSITION & COMMUNICATION FOLLOW UP AFTER INJECTION (REASON: CHECK AUTH FOR DIAG LUMBAR FACET BLOCK RIGHT L4-5, L5-S1) ELECTRONICALLY SIGNED BY JESSE ALLEN ON 09/08/2016 AT 08:51 AM EDT DISCLAIMER : THIS IS A VISIT SUMMARY EXTRACTED FROM THE [employer] CHART. IT IS NOT A COPY OF THE [employer] PROGRESS NOTE. GEENAD
== END ==
LOC: M PAIN 10:20
PROVIDERS: ATTEND Nurse Practitioner Family
DX: G89.29 Other chronic pain (principal); M51.26 Other intervertebral disc displacement, lumbar region; M79.1 Myalgia; E11.9 Type 2 diabetes mellitus without complications; K21.9 Gastro-esophageal reflux disease without esophagitis; M19.90 Unspecified osteoarthritis, unspecified site; E78.5 Hyperlipidemia, unspecified; I10 Essential (primary) hypertension; G25.81 Restless legs syndrome; J30.2 Other seasonal allergic rhinitis; M06.9 Rheumatoid arthritis, unspecified; F17.200 Nicotine dependence, unspecified, uncomplicated; J98.4 Other disorders of lung; Z79.4 Long term (current) use of insulin; Z79.82 Long term (current) use of aspirin; Z79.52 Long term (current) use of systemic steroids; Z79.899 Other long term (current) drug therapy; Z79.891 Long term (current) use of opiate analgesic; Z96.652 Presence of left artificial knee joint

== ENCOUNTER → 2016-09-08 | Outpatient (CLI) | payer OTHER, MEDICARE ==
--- NOTE | 2016-10-03 00:02 | ECWPNPC ---
PATIENT NAME: ESTHER MAE : 1960 GENDER: FEMALE VISIT DATE: 09/08/2016 DISCHARGE DATE: 09/08/16 1626 VISIT LOCKED DATE TIME: PHYSICIAN: JERE HORTON RESOURCE: JERE HORTON REASON FOR APPOINTMENT 1. WC, L SHOULDER AND L KNEE HISTORY OF PRESENT ILLNESS HISTORY OF PRESENT ILLNESS: PAIN THE PATIENT DESCRIBES THE PAIN... FALL RISK SCREENING: SCREENING :NO FALLS IN THE PAST YEAR TODAY'S VISIT: NOTES: WC FOLLOWUP FOR LEFT SHOULDER AND LEFT KNEE. RATES PAIN TODAY 6/10 .WORST AREA OF PAIN IS MEDIAL LEFT KNEE AND INTO CALF. IS HAVING SEVERE CHARLEY HORSES IN LEGS. L>R. NOTESSPASM SO BAD &QUOT;MY TOES ARE CURLING&QUOT; REPORTS THE LYRICA HELPS WITH THE BURNING PAIN . IS HAVING NO NEW OR INCREASED LOWER EXTREMITY EDEMA. USE PAIN MEDS INFEQUENTLY, AND PRIMARILY AT BEDTIME. CURRENT MEDICATIONS TAKING FOLIC ACID 1 MG TABLET 3 TABLET ORALLY ONCE A DAY TAKING METFORMIN HCL 1000 MG TABLET 1 TAB(S) ORALLY BID TAKING FAMOTIDINE 40 MG TABLET 1 TABLET AT BEDTIME ORALLY ONCE A DAY TAKING BUSPIRONE HCL 15 MG TABLET 1 TABLET ORALLY TWICE A DAY TAKING PEN NEEDLES 31G X 6 MM MISCELLANEOUS DIRECTED INTRAMUSCULARLY DAILY TAKING INSULIN SYRINGE/NEEDLE 28G X 1/2 MISCELLANEOUS 1- DX: 250.00 SUBCUTANEOUSLY DAILY TAKING PRAVASTATIN SODIUM 80 MG TABLET 1 TABLET ORALLY ONCE A DAY TAKING OXYGEN 2LPM DIRECTED NASAL CANNULA AT BEDTIME TAKING LANTUS 100 UNIT/ML SOLUTION INJECT 32 UNITS SUBCUTANEOUS TWICE DAILY TAKING ZYRTEC 10 MG TABLET 1 TABLET ORALLY ONCE A DAY TAKING HYDROCHLOROTHIAZIDE 25 MG TABLET 1 TABLET ORALLY ONCE A DAY TAKING BYDUREON 2MG/VIAL 1 INJECTION SUBCUTANEOUSLY ONCE WEEKLY TAKING OXYBUTYNIN CHLORIDE ER 10 MG TABLET EXTENDED RELEASE 24 HOUR 1 TABLET ORALLY ONCE A DAY TAKING SPIRONOLACTONE 25 MG TABLET 1 TABLET ORALLY TWICE A DAY TAKING ASPIR-81 81 MG TABLET DELAYED RELEASE 1 TABLET ORALLY ONCE A DAY TAKING PREDNISONE 10 MG TABLET 1 TABLET ORALLY DAILY TAKING LYRICA 200 MG CAPSULE 1 CAPSULE ORALLY TWICE A DAY MDD=2 TAKING PERCOCET 5-325 MG TABLET 1 TABLET NEEDED ORALLY EVERY 6-8 HRS PRN PAIN MDD=3 TAKING ROPINIROLE HCL 0.5 MG TABLET 2 TAB ORALLY AT BEDTIME TAKING TIZANIDINE HCL 2 MG TABLET 1 TABLET NEEDED ORALLY TAKE 1 TAB MORNING AND MIDDAY AND 2 TABS AT BEDTIME TAKING PERCOCET 5-325 MG TABLET 1 TABLET NEEDED ORALLY EVERY 6 HRS PRN PAIN MDD=2 NOT-TAKING HUMIRA PEN 40 MG/0.8ML KIT 0.8 ML SUBCUTANEOUS Q OTHER WEEK NOT-TAKING CLOTRIMAZOLE-7 1 % CREAM 1 APPLICATION AT BEDTIME VAGINAL ONCE A DAY NOT-TAKING IMODIUM A-D 2 MG TABLET 2 TAB IN MORNING, 1 TAB AFTER EACH BM MAX 8 IN 24 HOURS ORALLY DIRECTED MEDICATION LIST REVIEWED AND RECONCILED WITH THE PATIENT PAST MEDICAL HISTORY DM CHRONIC LUNG DISEASE GERD ARTHRITIS BACK PAIN/NECK PAIN HYPERLIPIDEMIA HTN RLS FIBROMYALGIA RA PNEUMONIA ALLERGIES SEASONAL: RED, ITCHY EYES, HEADACHE, NASAL CONGESTION: ALLERGY REVIEW OF SYSTEMS REVIEWED BY: PROVIDER: JERE PARNELL . CONSTITUTIONAL: ANY CHANGE IN YOUR MEDICAL CONDITION? NO . CHILLS NO . FEVER NO . INFECTION: DO YOU HAVE NEW INFECTIONS? NO . DO YOU HAVE HISTORY OF MRSA? NO . MUSCULOSKELETAL: ANY NEW PATTERNS OF PAIN OR NUMBNESS? NO . GASTROENTEROLOGY: ANY NEW CHANGE IN BOWEL CONTROL? NO . GENITOURINARY: ANY NEW CHANGE IN BLADDER CONTROL? NO . IS THERE A CHANCE YOU COULD BE ? NO . HEMATOLOGY/LYMPH: DO YOU TAKE ANY BLOOD THINNERS? (FOR EXAMPLE- COUMADIN, PLAVIX, AGGRENOX, PLATEL, PRADAXA, OR XARELTO) NO . WHEN WAS YOUR LAST DOSE? DATE: TIME: . NEUROLOGY: HAVE YOU FALLEN IN THE PAST 6 MONTHS? NO . ANY NEW EXTREMITY NUMBNESS OR WEAKNESS? NO . CARDIOLOGY: DO YOU HAVE A PACEMAKER OR DEFIBRILLATOR? NO . RESPIRATORY: HAVE YOU BEEN SICK IN THE PAST WEEK? NO . FEVER NO . FLU LIKE SYMPTOMS? NO . COUGH NO . INTEGUMENTARY: DO YOU HAVE ANY RASHES OR OPEN SORES? NO . ALLERGIC/IMMUNO: ARE YOU ALLERGIC TO SHELLFISH OR IV DYE? NO . ANY NEW ALLERGIES? NO . PSYCHIATRIC: DO YOU HAVE THOUGHTS OF HURTING YOURSELF OR SOMEONE ELSE? NO . ARE YOU ABUSED, NEGLECTED, OR IN AN UNSAFE ENVIRONMENT? NO . ENDOCRINOLOGY: ARE YOU DIABETIC? YES . OTHER: DO YOU NEED ANY PRESCRIPTIONS? NO . IF YES, PLEASE LIST: ____ . ANY NEW PROBLEMS WITH YOUR MEDICATIONS? NO . WHEN DID YOU LAST EAT? ____ . WHEN DID YOU LAST DRINK? ____ . WHAT DID YOU LAST DRINK? ____ . NAME OF PERSON DRIVING YOU HOME? ____ . DO YOU HAVE ANY OTHER QUESTIONS OR CONCERNS ON A NEW ARTHRITIS MEDICATION CANT REMEMBER THE NAME., YES . VITAL SIGNS WT 266.9 LBS, HT 66.75 IN, BMI 42.11 INDEX, BP 148/99 MM HG, HR 86 /MIN, RR 18 /MIN, TEMP 97.4 F, OXYGEN SAT % 92% R/A, REVIEWED BY: CHANDANA Elizalde. EXAMINATION GENERAL EXAMINATION: GENERAL APPEARANCE:COLOR PINK. PSYCHALERT , ORIENTED X 3 , APPROPRIATE MOOD AND AFFECT . LUNGS:DECREASED AIR FLOW. NO WHEEZES, RALES OR RHONCHI. HEART:HEART RATE INTERMITTANTLY IRREGULAR. MUSCULOSKELETAL:TRIGGER POINTS:ANTERIOR AND POSTERIOR SHOULDER AREA. CAN ABDUCT LEFT SHOULDER TO 90 DEGREES. PAIN IN AC JOINT WITH INTERNAL AND EXTERNAL MOTION. ELECTRICAL LOGGER STRENGTH EQUAL AND STRONG. LEFT KNEE WARM TO TOUGH, WITH SOME EDEMA OVER THE MEDIAL ASPECT WITH EXTREME TIGHTNESS OVER HAMSTRINGS TENDONS AND ALONG MEDIAL CALF . TENDERNESS OVER ILIOTIBIAL BAND.. ASSESSMENTS LEFT MEDIAL KNEE PAIN - M25.562 (PRIMARY) OTHER CHRONIC PAIN - G89.29 PAIN IN LEFT SHOULDER - M25.512 TREATMENT LEFT MEDIAL KNEE PAIN CLINICAL NOTES: ISTOP REGISTRY REVIEWED AND DEMNOSTRATES COMPLLIANCE. BRINGS IN MEDICATIONS WHICH IS APPROPRIATE FOR WHAT WAS DISPENSED. RECENT URINE TOXICOLOGY REVIEWED. NO UNAUTHORIZED MEDICATIONS. NO ILLICIT SUBSTANCES AND PRESCRIBED MEDICATIONS WERE PRESENT. OTHERS REFILL PERCOCET TABLET, 5-325 MG, 1 TABLET NEEDED, ORALLY, EVERY 6-8 HRS PRN PAIN MDD=3, 30 DAY(S), 45, REFILLS 0 START MAGNESIUM OXIDE TABLET, 400 MG, 1 TABLET NEEDED, ORALLY, ONCE A DAY, 30 DAY(S), 30, REFILLS 5 NOTES: TAKE GLASS OF TONIC WATER WITH FLAVORING (POMEGRANITE OR OTHER) EVERY EVENING FOR CRAMPS. DISPOSITION & COMMUNICATION FOLLOW UP WC - [address] CORTEZ (REASON: WC LEFT KNEE AND L SHOULDER) ELECTRONICALLY SIGNED BY JESSE ALLEN ON 10/02/2016 AT 11:36 AM EDT DISCLAIMER : THIS IS A VISIT SUMMARY EXTRACTED FROM THE [employer] CHART. IT IS NOT A COPY OF THE [employer] PROGRESS NOTE. MTDD
== END ==
LOC: M PAIN 15:00
PROVIDERS: ATTEND Nurse Practitioner Family
DX: G89.29 Other chronic pain (principal); M25.562 Pain in left knee; M25.512 Pain in left shoulder; E11.9 Type 2 diabetes mellitus without complications; J98.4 Other disorders of lung; K21.9 Gastro-esophageal reflux disease without esophagitis; M19.90 Unspecified osteoarthritis, unspecified site; E78.5 Hyperlipidemia, unspecified; I10 Essential (primary) hypertension; G25.81 Restless legs syndrome; M79.7 Fibromyalgia; M06.9 Rheumatoid arthritis, unspecified; J30.2 Other seasonal allergic rhinitis; Z79.4 Long term (current) use of insulin; Z99.81 Dependence on supplemental oxygen; Z79.82 Long term (current) use of aspirin; Z79.891 Long term (current) use of opiate analgesic; Z79.899 Other long term (current) drug therapy

== ENCOUNTER → 2016-12-21 | Outpatient (CLI) | payer MEDICARE ==
--- NOTE | 2017-01-16 00:40 | ECWPNPC ---
PATIENT NAME: ESTHER MAE : 1960 GENDER: FEMALE VISIT DATE: 12/21/2016 DISCHARGE DATE: 12/21/16 1218 VISIT LOCKED DATE TIME: PHYSICIAN: JERE HORTON RESOURCE: JERE HORTON REASON FOR APPOINTMENT 1. BACK HISTORY OF PRESENT ILLNESS HISTORY OF PRESENT ILLNESS: PAIN THE PATIENT DESCRIBES THE PAIN... FALL RISK SCREENING: SCREENING :NO FALLS IN THE PAST YEAR TODAY'S VISIT: NOTES: MEDICARE FOLLOWUP FOR LOW BACK PAIN. RATES PAIN TODAY 05/06. STATES VITAL LOST WEIGHT AND IS WALKING DAILY. HAS CUT WAY NBACK ON CIGARETTES. DOES USE PAIN MEDS AT NIGHT AFTER BEING ON FEET ALL DAY. . CURRENT MEDICATIONS TAKING METFORMIN HCL 1000 MG TABLET 1 TAB(S) ORALLY BID TAKING FAMOTIDINE 40 MG TABLET 1 TABLET AT BEDTIME ORALLY ONCE A DAY TAKING BUSPIRONE HCL 15 MG TABLET 1 TABLET ORALLY TWICE A DAY TAKING PEN NEEDLES 31G X 6 MM MISCELLANEOUS DIRECTED INTRAMUSCULARLY DAILY TAKING INSULIN SYRINGE/NEEDLE 28G X 1/2 MISCELLANEOUS 1- DX: 250.00 SUBCUTANEOUSLY DAILY TAKING PRAVASTATIN SODIUM 80 MG TABLET 1 TABLET ORALLY ONCE A DAY TAKING LANTUS 100 UNIT/ML SOLUTION 40 IN THE AM AND 32 IN THE PM SUBCUTANEOUS TWICE DAILY TAKING ZYRTEC 10 MG TABLET 1 TABLET ORALLY ONCE A DAY TAKING HYDROCHLOROTHIAZIDE 25 MG TABLET 1 TABLET ORALLY ONCE A DAY TAKING BYDUREON 2MG/VIAL 1 INJECTION SUBCUTANEOUSLY ONCE WEEKLY TAKING OXYBUTYNIN CHLORIDE ER 10 MG TABLET EXTENDED RELEASE 24 HOUR 1 TABLET ORALLY ONCE A DAY TAKING SPIRONOLACTONE 25 MG TABLET 1 TABLET ORALLY TWICE A DAY TAKING ASPIR-81 81 MG TABLET DELAYED RELEASE 1 TABLET ORALLY ONCE A DAY TAKING ROPINIROLE HCL 0.5 MG TABLET 2 TAB ORALLY AT BEDTIME TAKING PERCOCET 5-325 MG TABLET 1 TABLET NEEDED ORALLY EVERY 6 HRS PRN PAIN MDD=2 TAKING LYRICA 200 MG CAPSULE 1 CAPSULE ORALLY TWICE A DAY MDD=2 TAKING KEFLEX 500 MG CAPSULE 1 CAPSULE ORALLY EVERY 12 HRS NOT-TAKING FOLIC ACID 1 MG TABLET 3 TABLET ORALLY ONCE A DAY NOT-TAKING PREDNISONE 10 MG TABLET 1 TABLET ORALLY DAILY NOT-TAKING MAGNESIUM OXIDE 400 MG TABLET 1 TABLET NEEDED ORALLY ONCE A DAY NOT-TAKING HUMIRA PEN 40 MG/0.8ML KIT 0.8 ML SUBCUTANEOUS Q OTHER WEEK NOT-TAKING CLOTRIMAZOLE-7 1 % CREAM 1 APPLICATION AT BEDTIME VAGINAL ONCE A DAY NOT-TAKING IMODIUM A-D 2 MG TABLET 2 TAB IN MORNING, 1 TAB AFTER EACH BM MAX 8 IN 24 HOURS ORALLY DIRECTED NOT-TAKING OXYGEN 2LPM DIRECTED NASAL CANNULA AT BEDTIME NOT-TAKING TIZANIDINE HCL 2 MG TABLET 1 TABLET NEEDED ORALLY TAKE 1 TAB MORNING AND MIDDAY AND 2 TABS AT BEDTIME NOT-TAKING OXYBUTYNIN CHLORIDE ER 10 MG TAB TAKE ONE TABLET BY MOUTH EVERY DAY NOT-TAKING PERCOCET 5-325 MG TABLET 1 TABLET NEEDED ORALLY EVERY 6-8 HRS PRN PAIN MDD=3 NOT-TAKING BACTRIM DS 800-160 MG TABLET 1 TABLET ORALLY BID NOT-TAKING PYRIDIUM 200 MG TABLET 1 TABLET AFTER MEALS ORALLY THREE TIMES A DAY MEDICATION LIST REVIEWED AND RECONCILED WITH THE PATIENT PAST MEDICAL HISTORY DM CHRONIC LUNG DISEASE GERD ARTHRITIS BACK PAIN/NECK PAIN HYPERLIPIDEMIA HTN RLS FIBROMYALGIA RA PNEUMONIA ALLERGIES SEASONAL: RED, ITCHY EYES, HEADACHE, NASAL CONGESTION: ALLERGY SURGICAL HISTORY L KNEE REPLACEMENT 2013 CHOLECYSTECTOMY LEFT SHOULDER REPAIR [facility]LY [facility] SOCIAL HISTORY GENERAL: TOBACCO USE ARE YOU A:CURRENT SMOKER HOW MANY CIGARETTES A DAY DO YOU SMOKE?21-30 HOW SOON AFTER YOU WAKE UP DO YOU SMOKE YOUR FIRST CIGARETTE?6-30 MIN HOW OFTEN DO YOU SMOKE CIGARETTES?EVERY DAY PATIENT COUNSELED ON THE DANGERS OF TOBACCO USE AND URGED TO QUIT:07/06/2016 ARE YOU INTERESTED IN QUITTING?THINKING ABOUT QUITTING PREVIOUS QUIT ATTEMPTS?YES, MORE THAN 6 MONTHS AGO. HAS NICOTENE PATCHES COUNSELED THE PATIENT ON SMOKING CESSATION, EDUCATION [id number]/10/2017 PAIN CLINIC PFS, CLERGY, PUBLIC HEALTH REFERRALS PFS REFERRAL NEEDED?NO CLERGY REFERRAL NEEDED?NO PUBLIC HEALTH REFERRAL NEEDED?NO WAS THE PROVIDER NOTIFIED OF ANY PERTINENT INFO?NO HAS THE PATIENT BEEN EDUCATED REGARDING HIS/HER PLAN OF CARE?YES HAS THE PATIENT BEEN EDUCATED REGARDING PAIN, THE RISK FOR PAIN, THE IMPORTANCE OF EFFECTIVE PAIN MANAGEMENT, AND THE PAIN ASSESSMENT PROCESS?YES PATIENT: ____. HOSPITALIZATION/MAJOR DIAGNOSTIC PROCEDURE SURGICALY RELATED PNEUMONIA-RESP FAILURE ON BIPAP 12/28/15 REVIEW OF SYSTEMS REVIEWED BY: PROVIDER: JERE PARNELL . CONSTITUTIONAL: ANY CHANGE IN YOUR MEDICAL CONDITION? NO . CHILLS NO . FEVER NO . INFECTION: DO YOU HAVE NEW INFECTIONS? NO . DO YOU HAVE HISTORY OF MRSA? NO . MUSCULOSKELETAL: ANY NEW PATTERNS OF PAIN OR NUMBNESS? NO . GASTROENTEROLOGY: ANY NEW CHANGE IN BOWEL CONTROL? NO . GENITOURINARY: ANY NEW CHANGE IN BLADDER CONTROL? NO . IS THERE A CHANCE YOU COULD BE ? NO . HEMATOLOGY/LYMPH: DO YOU TAKE ANY BLOOD THINNERS? (FOR EXAMPLE- COUMADIN, PLAVIX, AGGRENOX, PLATEL, PRADAXA, OR XARELTO) NO . WHEN WAS YOUR LAST DOSE? DATE: TIME: . NEUROLOGY: HAVE YOU FALLEN IN THE PAST 6 MONTHS? NO . ANY NEW EXTREMITY NUMBNESS OR WEAKNESS? NO . CARDIOLOGY: DO YOU HAVE A PACEMAKER OR DEFIBRILLATOR? NO . RESPIRATORY: HAVE YOU BEEN SICK IN THE PAST WEEK? NO . FEVER NO . FLU LIKE SYMPTOMS? NO . COUGH NO . INTEGUMENTARY: DO YOU HAVE ANY RASHES OR OPEN SORES? NO . ALLERGIC/IMMUNO: ARE YOU ALLERGIC TO SHELLFISH OR IV DYE? NO . ANY NEW ALLERGIES? NO . PSYCHIATRIC: DO YOU HAVE THOUGHTS OF HURTING YOURSELF OR SOMEONE ELSE? NO . ARE YOU ABUSED, NEGLECTED, OR IN AN UNSAFE ENVIRONMENT? NO . ENDOCRINOLOGY: ARE YOU DIABETIC? YES . OTHER: DO YOU NEED ANY PRESCRIPTIONS? YES, LYRICA . IF YES, PLEASE LIST: ____ . ANY NEW PROBLEMS WITH YOUR MEDICATIONS? NO . WHEN DID YOU LAST EAT? ____ . WHEN DID YOU LAST DRINK? ____ . WHAT DID YOU LAST DRINK? ____ . NAME OF PERSON DRIVING YOU HOME? ____ . DO YOU HAVE ANY OTHER QUESTIONS OR CONCERNS NO . VITAL SIGNS WT 234 LBS, HT 66.75 IN, BMI 36.92 INDEX, BP 128/71 MM HG, HR 84 /MIN, RR 18 /MIN, TEMP 98 F,4 F, OXYGEN SAT % 94%, NA INITIALS AW 1148, REVIEWED BY: EM. EXAMINATION GENERAL EXAMINATION: GENERAL APPEARANCE:COLOR PINK, SKIN WARM, DRY. PSYCHALERT , ORIENTED X 3 , APPROPRIATE MOOD AND AFFECT . LUNGS:DECREASED AIR ENTRY AT BASES, NO WHEEZES, RALES OR RHONCHI. . HEART:HEART RATE REGULAR. MUSCULOSKELETAL:MUSCLE STRENGTH TESTING 5/5 BILATERAL UPPER AND LOWER EXTREMITIES. MILD TENDERNESS WITH PALPATION OVER LUMBAR SPINOUS PROCESSES., FEW TRIGGER POINTS AND TIGHT FIBROUS BANDS IDENTIFIED OVER LUMBAR PARAVERTEBRAL MUSCLES AND INTO THE SACRUM. SLOW TO RISE TO STANDING POSITION. POSTURE UPRIGHT. GAIT WIDEBASED.. ASSESSMENTS LUMBAR DISC DISPLACEMENT WITHOUT MYELOPATHY - M51.26 (PRIMARY) MYALGIA - M79.1 TREATMENT LUMBAR DISC DISPLACEMENT WITHOUT MYELOPATHY REFILL PERCOCET TABLET, 5-325 MG, 1 TABLET NEEDED, ORALLY, EVERY 6 HRS PRN PAIN MDD=2, 30 DAY(S), 45, REFILLS 0 REFILL LYRICA CAPSULE, 200 MG, 1 CAPSULE, ORALLY, TWICE A DAY MDD=2, 30 DAY(S), 60, REFILLS 3 NOTES: KEEP WALKING. CONTINUE WEIGHT LOSS WITH GOOD DIET HABITS. CLINICAL NOTES: ISTOP REGISTRY REVIEWED AND DEMNOSTRATES COMPLLIANCE. ( REF # [id number]) BRINGS IN MEDICATIONS WHICH IS APPROPRIATE FOR WHAT WAS DISPENSED. RECENT URINE TOXICOLOGY REVIEWED. NO UNAUTHORIZED MEDICATIONS. NO ILLICIT SUBSTANCES AND PRESCRIBED MEDICATIONS WERE PRESENT. PROCEDURE CODES FA211 ESTABILISHED PATIENT [facility] CHARGE G8730 PAIN ASSESS POS TOOL F/U PLAN DOC G8427 DOC MEDS VERIFIED W/PT OR RE DISPOSITION & COMMUNICATION FOLLOW UP WILL CALL (REASON: M'CARE - BACK PAIN) ELECTRONICALLY SIGNED BY JESSE ALLEN ON 01/15/2017 AT 09:54 AM EST DISCLAIMER : THIS IS A VISIT SUMMARY EXTRACTED FROM THE [employer] CHART. IT IS NOT A COPY OF THE [employer] PROGRESS NOTE. PRETTY
== END ==
LOC: M PAIN 11:30
PROVIDERS: ATTEND Nurse Practitioner Family
DX: M51.26 Other intervertebral disc displacement, lumbar region (principal); M79.1 Myalgia; E11.9 Type 2 diabetes mellitus without complications; E78.2 Mixed hyperlipidemia; I10 Essential (primary) hypertension; F17.210 Nicotine dependence, cigarettes, uncomplicated; G25.81 Restless legs syndrome; Z79.4 Long term (current) use of insulin; Z79.82 Long term (current) use of aspirin; Z79.891 Long term (current) use of opiate analgesic; J30.2 Other seasonal allergic rhinitis

== ENCOUNTER → 2017-03-31 | Outpatient (CLI) | payer MEDICARE | LOC: M PAIN 13:30 | DX: M51.26 Other intervertebral disc displacement, lumbar region (principal); M79.1 Myalgia; E11.9 Type 2 diabetes mellitus without complications; I10 Essential (primary) hypertension; M19.90 Unspecified osteoarthritis, unspecified site; E78.5 Hyperlipidemia, unspecified; G25.81 Restless legs syndrome; M06.9 Rheumatoid arthritis, unspecified; J98.4 Other disorders of lung; F17.210 Nicotine dependence, cigarettes, uncomplicated; J30.2 Other seasonal allergic rhinitis; Z79.4 Long term (current) use of insulin; Z79.82 Long term (current) use of aspirin; Z79.899 Other long term (current) drug therapy | CPT/HCPCS: G0463 ==

== ENCOUNTER → 2017-05-16 | Outpatient (CLI) | payer OTHER | LOC: M PAIN 13:15 | DX: M25.512 Pain in left shoulder (principal); M25.562 Pain in left knee; E11.9 Type 2 diabetes mellitus without complications; E78.5 Hyperlipidemia, unspecified; I10 Essential (primary) hypertension; G25.81 Restless legs syndrome; F17.210 Nicotine dependence, cigarettes, uncomplicated; K21.9 Gastro-esophageal reflux disease without esophagitis; Z79.4 Long term (current) use of insulin; Z79.82 Long term (current) use of aspirin; Z79.891 Long term (current) use of opiate analgesic; J30.2 Other seasonal allergic rhinitis | CPT/HCPCS: G0463 ==

== ENCOUNTER → 2017-06-15 | Outpatient (CLI) | payer MEDICARE | LOC: M LRY 10:38 | DX: J44.1 Chronic obstructive pulmonary disease with (acute) exacerbation (principal); I51.7 Cardiomegaly | CPT/HCPCS: 71046; 87880 ==

== ENCOUNTER → 2017-08-03 | Outpatient (CLI) | payer OTHER, MEDICARE | LOC: M PAIN 08:45 | DX: M25.512 Pain in left shoulder (principal); M25.562 Pain in left knee; E11.9 Type 2 diabetes mellitus without complications; M19.90 Unspecified osteoarthritis, unspecified site; E78.5 Hyperlipidemia, unspecified; I10 Essential (primary) hypertension; J98.9 Respiratory disorder, unspecified; K21.9 Gastro-esophageal reflux disease without esophagitis; F17.210 Nicotine dependence, cigarettes, uncomplicated; Z79.4 Long term (current) use of insulin; Z79.82 Long term (current) use of aspirin; Z79.891 Long term (current) use of opiate analgesic; Z79.899 Other long term (current) drug therapy; Z96.652 Presence of left artificial knee joint | CPT/HCPCS: G0463 ==

== ENCOUNTER → 2017-09-06 | Outpatient (CLI) | payer MEDICARE | LOC: M PAIN 14:00 | DX: M51.26 Other intervertebral disc displacement, lumbar region (principal); M48.062 Spinal stenosis, lumbar region with neurogenic claudication; M46.96 Unspecified inflammatory spondylopathy, lumbar region; M79.1 Myalgia; E11.9 Type 2 diabetes mellitus without complications; K21.9 Gastro-esophageal reflux disease without esophagitis; J98.4 Other disorders of lung; E78.5 Hyperlipidemia, unspecified; M19.90 Unspecified osteoarthritis, unspecified site; J30.2 Other seasonal allergic rhinitis; I10 Essential (primary) hypertension; G25.81 Restless legs syndrome; M06.9 Rheumatoid arthritis, unspecified; F17.210 Nicotine dependence, cigarettes, uncomplicated; Z79.84 Long term (current) use of oral hypoglycemic drugs; Z79.82 Long term (current) use of aspirin; Z79.891 Long term (current) use of opiate analgesic; Z79.899 Other long term (current) drug therapy | CPT/HCPCS: G0463 ==

== ENCOUNTER → 2017-09-11 | Outpatient (CLI) | payer OTHER, MEDICARE | LOC: M PAIN 09:00 | DX: M25.512 Pain in left shoulder (principal); Z79.899 Other long term (current) drug therapy; M25.562 Pain in left knee; E11.9 Type 2 diabetes mellitus without complications; J98.4 Other disorders of lung; K21.9 Gastro-esophageal reflux disease without esophagitis; M19.90 Unspecified osteoarthritis, unspecified site; E78.5 Hyperlipidemia, unspecified; M54.2 Cervicalgia; I10 Essential (primary) hypertension; G25.81 Restless legs syndrome; J30.2 Other seasonal allergic rhinitis; M79.7 Fibromyalgia; M06.9 Rheumatoid arthritis, unspecified; F17.210 Nicotine dependence, cigarettes, uncomplicated; Z96.652 Presence of left artificial knee joint; Z79.84 Long term (current) use of oral hypoglycemic drugs; Z79.82 Long term (current) use of aspirin; Z79.891 Long term (current) use of opiate analgesic | CPT/HCPCS: G0463 ==

== ENCOUNTER → 2017-09-15 | Outpatient (CLI) | payer MEDICARE, OTHER | LOC: M LRY 10:31 | DX: R06.89 Other abnormalities of breathing (principal) | CPT/HCPCS: 71046 ==

== ENCOUNTER → 2017-09-19 | Outpatient (REF) | payer MEDICARE ==
[2017-09-19 17:05] LABS: MALB URINE SIEMENS 39.1 MG/L; MAU/CREAT RATIO 17.6 MCG/MG (0.0-30.0)
[2017-09-19 17:11] LABS: ESTIMATED AVERAGE GLUCOSE 220 MG/DL (60-110); HEMOGLOBIN A1c 9.3 %
[2017-09-19 17:14] LABS: BASO # 0.1 10^3/uL (0.0-0.2); BASO % 0.5 % (0.0-1.0); EOS # 0.2 10^3/uL (0.0-0.50); EOS % 1.7 % (0.0-3.0); HEMATOCRIT 38.5 % (36.0-47.0); HEMOGLOBIN 11.7 g/dl (12.0-15.5); IMMATURE GRANULOCYTE % 0.6 % (0-3.0); LYMPH # 2.3 10^3/uL (1.5-4.5); LYMPH % 22.7 % (24.0-44.0); MEAN CORPUSCULAR HEMOGLOBIN 22.6 pg (27.0-33.0); MEAN CORPUSCULAR HGB CONC 30.4 g/dl (32.0-36.5); MEAN CORPUSCULAR VOLUME 74.3 fl (80.0-96.0); MONO # 0.6 10^3/uL (0.0-0.8); MONO % 5.3 % (0.0-5.0); NEUTROPHILS # 7.1 10^3/uL (1.8-7.7); NEUTROPHILS % 69.2 % (36.0-66.0); PLATELET COUNT, AUTOMATED 261 10^3/uL (150-450); RED BLOOD COUNT 5.18 10^6/uL (4.00-5.40); RED CELL DISTRIBUTION WIDTH 21.2 % (11.5-14.5); WHITE BLOOD COUNT 10.3 10^3/uL (4.0-10.0)
[2017-09-19 17:22] LABS: ALBUMIN 3.4 GM/DL (3.2-5.2); ALBUMIN/GLOBULIN RATIO 0.85 (1.00-1.93); ALKALINE PHOSPHATASE 101 U/L (45-117); ALT/SGPT 24 U/L (12-78); ANION GAP 9 MEQ/L (8-16); AST/SGOT 11 U/L (7-37); BILIRUBIN,TOTAL 0.3 MG/DL (0.2-1.0); BLOOD UREA NITROGEN 19 MG/DL (7-18); CALCIUM LEVEL 8.9 MG/DL (8.5-10.1); CARBON DIOXIDE LEVEL 32 MEQ/L (21-32); CHLORIDE LEVEL 96 MEQ/L (98-107); CHOLESTEROL LEVEL 259 MG/DL (<200); CHOLESTEROL RISK RATIO 5.078 (<5); CREATININE FOR GFR 0.94 MG/DL (0.55-1.30); GLOMERULAR FILTRATION RATE > 60.0 (>51); GLUCOSE, FASTING 243 MG/DL (70-100); HDL CHOLESTEROL 51 MG/DL (>40); LDL CHOLESTEROL 133.6 MG/DL (<100); NON-HDL-C 208 MG/DL; POTASSIUM SERUM 3.9 MEQ/L (3.5-5.1); SODIUM LEVEL 137 MEQ/L (136-145); TOTAL PROTEIN 7.4 GM/DL (6.4-8.2); TRIGLYCERIDES LEVEL 372 MG/DL (<150)
== END ==
LOC: M SFHCLERA 14:00
DX: E11.9 Type 2 diabetes mellitus without complications (principal)
CPT/HCPCS: 84443

== ENCOUNTER → 2017-10-13 | Outpatient (REF) | payer MEDICARE, OTHER ==
[2017-10-13 11:27] LABS: RHEUMATOID FACTOR QUANT < 10.0 IU/ML (<15.0)
[2017-10-13 11:27] LABS: C REACTIVE PROTEIN QUANTITATIV 0.44 MG/DL (0.00-0.30)
[2017-10-13 11:36] LABS: ERYTHROCYTE SEDIMENTATION RATE 20 mm/hr (0-30)
[2017-10-16 00:06] LABS: ANA (HEP2) Negative (.)
[2017-10-16 00:06] LABS: CYCLIC CITRULLINATED PEPTIDE 6 units (0-19)
== END ==
LOC: M SFHCLERA 09:21
DX: M06.9 Rheumatoid arthritis, unspecified (principal)
CPT/HCPCS: 86140

== ENCOUNTER → 2017-10-24 | Outpatient (CLI) | payer MEDICARE, OTHER | LOC: M PAIN 11:45 | DX: M51.26 Other intervertebral disc displacement, lumbar region (principal); M48.062 Spinal stenosis, lumbar region with neurogenic claudication; M46.96 Unspecified inflammatory spondylopathy, lumbar region; M79.1 Myalgia; E11.9 Type 2 diabetes mellitus without complications; J44.9 Chronic obstructive pulmonary disease, unspecified; M19.90 Unspecified osteoarthritis, unspecified site; E78.5 Hyperlipidemia, unspecified; I10 Essential (primary) hypertension; M06.9 Rheumatoid arthritis, unspecified; G47.33 Obstructive sleep apnea (adult) (pediatric); F17.200 Nicotine dependence, unspecified, uncomplicated; Z79.84 Long term (current) use of oral hypoglycemic drugs; Z79.899 Other long term (current) drug therapy; Z96.652 Presence of left artificial knee joint | CPT/HCPCS: G0463 ==

== ENCOUNTER → 2017-11-24 | Outpatient (CLI) | payer MEDICARE, OTHER | LOC: M PAIN 11:15 | DX: M51.26 Other intervertebral disc displacement, lumbar region (principal); M48.062 Spinal stenosis, lumbar region with neurogenic claudication; M46.96 Unspecified inflammatory spondylopathy, lumbar region; M79.1 Myalgia; E11.9 Type 2 diabetes mellitus without complications; J44.9 Chronic obstructive pulmonary disease, unspecified; K21.9 Gastro-esophageal reflux disease without esophagitis; E78.5 Hyperlipidemia, unspecified; I10 Essential (primary) hypertension; G25.81 Restless legs syndrome; M06.9 Rheumatoid arthritis, unspecified; F17.210 Nicotine dependence, cigarettes, uncomplicated; Z79.82 Long term (current) use of aspirin; Z79.84 Long term (current) use of oral hypoglycemic drugs; Z79.899 Other long term (current) drug therapy; Z86.2 Personal history of diseases of the blood and blood-forming organs and certain disorders involving the immune mechanism; Z96.652 Presence of left artificial knee joint | CPT/HCPCS: G0463 ==

== ENCOUNTER → 2017-12-05 | Outpatient (CLI) | payer OTHER, MEDICARE | LOC: M PAIN 14:30 | DX: M25.512 Pain in left shoulder (principal); M25.562 Pain in left knee; E11.9 Type 2 diabetes mellitus without complications; J44.9 Chronic obstructive pulmonary disease, unspecified; K21.9 Gastro-esophageal reflux disease without esophagitis; M19.90 Unspecified osteoarthritis, unspecified site; E78.5 Hyperlipidemia, unspecified; I10 Essential (primary) hypertension; G25.81 Restless legs syndrome; M79.7 Fibromyalgia; M06.9 Rheumatoid arthritis, unspecified; G47.30 Sleep apnea, unspecified; F17.210 Nicotine dependence, cigarettes, uncomplicated; Z79.82 Long term (current) use of aspirin; Z79.84 Long term (current) use of oral hypoglycemic drugs; Z79.891 Long term (current) use of opiate analgesic; Z79.899 Other long term (current) drug therapy; Z86.2 Personal history of diseases of the blood and blood-forming organs and certain disorders involving the immune mechanism; Z96.652 Presence of left artificial knee joint | CPT/HCPCS: G0463 ==

== ENCOUNTER → 2017-12-25 | Outpatient (CLI) | payer MEDICARE, OTHER | LOC: M PAIN 09:00 | DX: M51.26 Other intervertebral disc displacement, lumbar region (principal); M48.062 Spinal stenosis, lumbar region with neurogenic claudication; M46.96 Unspecified inflammatory spondylopathy, lumbar region; M79.18 Myalgia, other site; E11.9 Type 2 diabetes mellitus without complications; J44.9 Chronic obstructive pulmonary disease, unspecified; K21.9 Gastro-esophageal reflux disease without esophagitis; M19.90 Unspecified osteoarthritis, unspecified site; E78.5 Hyperlipidemia, unspecified; I10 Essential (primary) hypertension; M06.9 Rheumatoid arthritis, unspecified; D64.9 Anemia, unspecified; G47.33 Obstructive sleep apnea (adult) (pediatric); F17.210 Nicotine dependence, cigarettes, uncomplicated; Z79.82 Long term (current) use of aspirin; Z79.84 Long term (current) use of oral hypoglycemic drugs; Z79.899 Other long term (current) drug therapy | CPT/HCPCS: G0463 ==

== ENCOUNTER → 2017-12-27 | Outpatient (REF) | payer MEDICARE, OTHER ==
[2017-12-27 18:12] LABS: ANION GAP 9 MEQ/L (8-16); BLOOD UREA NITROGEN 14 MG/DL (7-18); CALCIUM LEVEL 9.2 MG/DL (8.5-10.1); CARBON DIOXIDE LEVEL 31 MEQ/L (21-32); CHLORIDE LEVEL 96 MEQ/L (98-107); CREATININE FOR GFR 0.91 MG/DL (0.55-1.30); ESTIMATED AVERAGE GLUCOSE 186 MG/DL (60-110); GLOMERULAR FILTRATION RATE > 60.0 (>51); GLUCOSE, FASTING 189 MG/DL (70-100); HEMOGLOBIN A1c 8.1 %; POTASSIUM SERUM 4.2 MEQ/L (3.5-5.1); SODIUM LEVEL 136 MEQ/L (136-145)
== END ==
LOC: M SFHCLERA 12:36
DX: E11.65 Type 2 diabetes mellitus with hyperglycemia (principal)
CPT/HCPCS: 83036

== ENCOUNTER → 2018-03-02 | Outpatient (CLI) | payer MEDICARE ==
[~2018-03-02] MED LIST changes: +ACET500T15 PO; -ACET50TAOT PO; -AMLO10TA2 PO; +AMLO10TA5 PO; +FIBE500T4 PO; -FIBE500T5 PO; +FOLI1TAB11 PO; -FOLI1TAB4 PO; +IPRA0.00 INH; -IPRASOL4 INH; +KLOR10TA76 PO; +LISI40TA PO; +LORA-243 PO; -LORA10TA2 PO; +METH2.5T48 PO; -METH2.5TA PO; +NICO21DI34 TD; -NICODIS TD; -POTA10CA PO; -PRAM0.123 PO; +PRAM0.126 PO; +PRED20TA PO; +SPIR-10 PO; -SPIR25TA2 PO; +TIZA4CAP PO; -TIZA4CAP3 PO
--- NOTE | 2018-03-02 17:25 | REP ---
Chest two views HISTORY: Chest tightness Comparison: 09/16/1979 A curvilinear density is present overlying the heart seen only in the lateral radiograph. This represents scar. The lungs are otherwise clear. The heart is normal in size. The pulmonary vasculature is normal in appearance. The bony structure is intact. IMPRESSION: No acute disease. Electronically Signed by Fili Hogan MD 03/02/2018 05:16 P
== END ==
LOC: M LRY 16:42
PROVIDERS: ATTEND Physician Assistant Medical
DX: J44.1 Chronic obstructive pulmonary disease with (acute) exacerbation (principal)
CPT/HCPCS: 71046; 87804; 94640; G0463

== ENCOUNTER 2018-03-10 12:17 | Emergency (ER) | payer MEDICARE ==
[~2018-03-10] VITALS: Ht 165.1 cm; Wt 106.4 kg
[~2018-03-10 12:17] MED LIST changes: -PRED20TA PO
[2018-03-10] MEDS ORDERED: NS 1,000 ML IV SCH (12:32)
[2018-03-10 12:45] LABS: BASO % 0.1 % (0.0-1.0); EOS % 0.2 % (0.0-3.0); HEMATOCRIT 43.8 % (36.0-47.0); HEMOGLOBIN 15.1 g/dl (12.0-15.5); LYMPH # 3.2 10^3/uL (1.5-4.5); LYMPH % 22.9 % (24.0-44.0); MEAN CORPUSCULAR HEMOGLOBIN 27.3 pg (27.0-33.0); MEAN CORPUSCULAR HGB CONC 34.5 g/dl (32.0-36.5); MEAN CORPUSCULAR VOLUME 79.2 fl (80.0-96.0); MONO # 0.8 10^3/uL (0.0-0.8); MONO % 5.3 % (0.0-5.0); NEUTROPHILS % 70.9 % (36.0-66.0); PLATELET COUNT, AUTOMATED 319 10^3/uL (150-450); RED BLOOD COUNT 5.53 10^6/uL (4.00-5.40); WHITE BLOOD COUNT 14.1 10^3/uL (4.0-10.0)
[2018-03-10] MEDS ORDERED: methylPREDNISolone INJ 125 MG/2 ML VIAL (J2930) IV ONE (12:45)
[2018-03-10 12:53] LABS: INR 1.01; PROTHROMBIN TIME 13.4 SECONDS (12.1-14.4)
[2018-03-10] MEDS: IPRATROPIUM 0.5MG/ALBUTEROL 2.5MG INH SOL UD 3ML (DUONEB)(J7620) NEB PRN ×3 (12:59→14:36)
--- NOTE | 2018-03-10 12:59 | ECGEPIP ---
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
[2018-03-10 13:00] LABS: ABG BASE EXCESS 3.1 (-2.0-2.0); ABG HCO3 26.6 MEQ/L (22.0-26.0); ABG O2 SATURATION 94.1 % (95.0-99.0); ABG PARTIAL PRESSURE CO2 37.1 mmHg (35.0-45.0); ABG PARTIAL PRESSURE O2 65.9 mmHg (75.0-100.0); ABG STANDARD HCO3 27.1 MEQ/L (22.0-26.0); ABG TOTAL CO2 27.7 MEQ/L (22.0-29.0); ABG pH (ARTERIAL) 7.473 UNITS (7.350-7.450)
[2018-03-10 13:16] LABS: BLOOD UREA NITROGEN 31 MG/DL (7-18); CARBON DIOXIDE LEVEL 24 MEQ/L (21-32); CHLORIDE LEVEL 91 MEQ/L (98-107); CPK CREATINE PHOSPHOKINASE 41 U/L (26-192); CREATININE FOR GFR 1.52 MG/DL (0.55-1.30); GLOMERULAR FILTRATION RATE 37.4 (>51); GLUCOSE, FASTING 391 MG/DL (70-100); MB/CK RELATIVE INDEX 2.68 (< OR =4); NT-PRO BNP 36 PG/ML (<125); POTASSIUM SERUM 4.1 MEQ/L (3.5-5.1); SODIUM LEVEL 129 MEQ/L (136-145); TROPONIN I < 0.02 NG/ML (< 0.10)
[2018-03-10 13:25] LABS: INFLUENZA A AMPLIFICATION NEGATIVE (NEGATIVE); INFLUENZA B AMPLIFICATION NEGATIVE (NEGATIVE)
--- NOTE | 2018-03-10 13:39 | REP ---
Portable chest x-ray: Single view. History: Dyspnea and cough. Comparison study: January 04, 2016. Findings: There is mild linear fibrosis in the right base above a somewhat elevated right hemidiaphragm. Lung coronado are otherwise clear. Pleural angles are sharp. Cardiomediastinal silhouette is unremarkable. Impression: Mild linear fibrosis right base. Otherwise no acute disease. Electronically Signed by Jose Muller MD 03/10/2018 02:31 P
[2018-03-10] MEDS ORDERED: NS 1,000 ML IV ONE (13:45)
[2018-03-10] MEDS ORDERED: PRED20TA PO ×2 (14:53→15:15)
[2018-03-10 15:00] VITALS: BP 152/71
== END 2018-03-10 15:20 | disposition home or self-care (01) ==
LOC: M ED 12:17
DX: J06.9 Acute upper respiratory infection, unspecified (principal); I11.9 Hypertensive heart disease without heart failure; E11.9 Type 2 diabetes mellitus without complications; J44.9 Chronic obstructive pulmonary disease, unspecified; F17.210 Nicotine dependence, cigarettes, uncomplicated; Z79.899 Other long term (current) drug therapy; Z79.4 Long term (current) use of insulin
CPT/HCPCS: 36600; 71045; 80048; 82550; 82553; 82803; 83605; 83880; 84484; 85025; 85379; 85610; 87040; 87502; 93005; 93041; 94640; 96361; 96374; 99285; J2930

== ENCOUNTER → 2018-04-18 | Outpatient (REF) | payer MEDICARE ==
[~2018-04-18] MED LIST changes: +BYDU1INJ SC; +CETI10TA PO; +DULO1CAP2 PO; +ENBR50IN4 SC; +INCR1INH INH; +INDO50CA PO; +INSUDET SC; +INSUHUMDS SC; +LOSA25TA14 PO; +METF10004 PO; +MORP15TA2 PO; +OSEL75CA PO; +PRED10TA2 PO; +PRED20TA PO; +PROAAER10 INH; +TRIA1CR80 TOP; +VARE1TA PO; +ZETI10TA30 PO
[2018-04-18 17:55] LABS: BASO # 0.1 10^3/uL (0.0-0.2); BASO % 0.8 % (0.0-1.0); EOS # 0.2 10^3/uL (0.0-0.50); EOS % 2.4 % (0.0-3.0); HEMATOCRIT 40.1 % (36.0-47.0); HEMOGLOBIN 12.6 g/dl (12.0-15.5); LYMPH # 1.9 10^3/uL (1.5-4.5); LYMPH % 25.3 % (24.0-44.0); MEAN CORPUSCULAR HEMOGLOBIN 27.6 pg (27.0-33.0); MEAN CORPUSCULAR HGB CONC 31.4 g/dl (32.0-36.5); MEAN CORPUSCULAR VOLUME 87.7 fl (80.0-96.0); MONO # 0.3 10^3/uL (0.0-0.8); MONO % 4.4 % (0.0-5.0); NEUTROPHILS % 66.7 % (36.0-66.0); PLATELET COUNT, AUTOMATED 261 10^3/uL (150-450); RED BLOOD COUNT 4.57 10^6/uL (4.00-5.40); WHITE BLOOD COUNT 7.5 10^3/uL (4.0-10.0)
[2018-04-18 17:57] LABS: ALBUMIN 3.4 GM/DL (3.2-5.2); ALT/SGPT 20 U/L (12-78); BILIRUBIN,TOTAL 0.4 MG/DL (0.2-1.0); BLOOD UREA NITROGEN 16 MG/DL (7-18); C REACTIVE PROTEIN QUANTITATIV < 0.30 MG/DL (0.00-0.30); CALCIUM LEVEL 8.6 MG/DL (8.5-10.1); CARBON DIOXIDE LEVEL 30 MEQ/L (21-32); CHLORIDE LEVEL 98 MEQ/L (98-107); CREATININE FOR GFR 0.95 MG/DL (0.55-1.30); GLOMERULAR FILTRATION RATE > 60.0 (>51); GLUCOSE, FASTING 215 MG/DL (70-100); POTASSIUM SERUM 4.6 MEQ/L (3.5-5.1); SODIUM LEVEL 135 MEQ/L (136-145); TOTAL PROTEIN 6.2 GM/DL (6.4-8.2)
[2018-04-18 21:05] LABS: ERYTHROCYTE SEDIMENTATION RATE 13 mm/hr (0-30)
[2018-04-20 12:17] LABS: HEPATITIS B SURFACE ANTIBODY NEGATIVE (POSITIVE); HEPATITIS B SURFACE ANTIGEN NEGATIVE (NEGATIVE); HEPATITIS C VIRUS ABY INDEX < 0.0 INDEX (<0.8)
[2018-04-21 14:09] LABS: HEPATITIS B CORE ANTIBODY IGG Negative (Negative)
== END ==
LOC: M SFHCPLAZ 11:50
PROVIDERS: ATTEND Internal Medicine Rheumatology
DX: L40.50 Arthropathic psoriasis, unspecified (principal)
CPT/HCPCS: 80053; 85025; 85652; 86140; 86480; 86704; 86706; 86803; 87340; G0463

== ENCOUNTER → 2018-05-02 | Outpatient (REF) | payer MEDICARE, MEDICAID ==
[~2018-05-02] MED LIST changes: -/WARF25TA PO; +COUM1TAB18 PO; +LISI40TA52 PO; -LISI40TAB PO; +PRIL20TA2 PO; +SUCR1TA PO
[2018-05-02 21:06] LABS: HEMOGLOBIN A1c 9.2 %
== END ==
LOC: M SFHCLERA 15:26
PROVIDERS: ATTEND Family Medicine
DX: E11.65 Type 2 diabetes mellitus with hyperglycemia (principal)
CPT/HCPCS: 83036; 90670; G0009; G0463

== ENCOUNTER 2018-05-08 11:00 | Inpatient (IN) | payer MEDICARE, MEDICAID ==
[~2018-05-08] VITALS: Ht 165.1 cm; Wt 114.7 kg
[~2018-05-08 11:00] MED LIST changes: +/WARF25TA PO; -BYDU1INJ SC; -CETI10TA PO; -COUM1TAB18 PO; -DULO1CAP2 PO; -ENBR50IN4 SC; -INCR1INH INH; -INDO50CA PO; -INSUDET SC; -INSUHUMDS SC; -LISI40TA52 PO; +LISI40TAB PO; -LOSA25TA14 PO; -METF10004 PO; -MORP15TA2 PO; -OSEL75CA PO; -PRED10TA2 PO; -PRIL20TA2 PO; -PROAAER10 INH; -SUCR1TA PO; -TRIA1CR80 TOP; -VARE1TA PO; -ZETI10TA30 PO
--- NOTE | 2018-05-08 11:31 | REP ---
Portable chest, single AP semi upright view, 11:18 a.m.: Comparison is 03/10/2018. Lung coronado are clear. There is elevation of the right hemidiaphragm, unchanged. The keny, mediastinum, and bony thorax are unremarkable. Impression: No acute cardiopulmonary findings. Elevation of the right hemidiaphragm, unchanged. Electronically Signed by German Barrera MD 05/08/2018 11:22 A
[2018-05-08 11:50] LABS: BASO % 0.8 % (0.0-1.0); EOS # 0.1 10^3/uL (0.0-0.50); EOS % 2.1 % (0.0-3.0); HEMATOCRIT 40.4 % (36.0-47.0); HEMOGLOBIN 13.1 g/dl (12.0-15.5); LYMPH # 0.6 10^3/uL (1.5-4.5); LYMPH % 12.5 % (24.0-44.0); MEAN CORPUSCULAR HEMOGLOBIN 28.7 pg (27.0-33.0); MEAN CORPUSCULAR HGB CONC 32.4 g/dl (32.0-36.5); MEAN CORPUSCULAR VOLUME 88.4 fl (80.0-96.0); MONO # 0.2 10^3/uL (0.0-0.8); MONO % 4.2 % (0.0-5.0); NEUTROPHILS # 3.8 10^3/uL (1.8-7.7); NEUTROPHILS % 79.8 % (36.0-66.0); PLATELET COUNT, AUTOMATED 227 10^3/uL (150-450); RED BLOOD COUNT 4.57 10^6/uL (4.00-5.40); WHITE BLOOD COUNT 4.7 10^3/uL (4.0-10.0)
[2018-05-08] MEDS: IPRATROPIUM 0.5MG/ALBUTEROL 2.5MG INH SOL UD 3ML (DUONEB)(J7620) NEB SCH ×4 (12:14→15:25)
[2018-05-08 12:44] LABS: ABG BASE EXCESS 3.2 (-2.0-2.0); ABG HCO3 29.1 MEQ/L (22.0-26.0); ABG O2 SATURATION 93.4 % (95.0-99.0); ABG PARTIAL PRESSURE CO2 49.1 mmHg (35.0-45.0); ABG PARTIAL PRESSURE O2 69.3 mmHg (75.0-100.0); ABG STANDARD HCO3 27.3 MEQ/L (22.0-26.0); ABG TOTAL CO2 30.6 MEQ/L (22.0-29.0)
[2018-05-08] MEDS ORDERED: LYRI200C PO (12:45)
[2018-05-08] MEDS ORDERED: INSUDET SC (12:45)
[2018-05-08] MEDS ORDERED: PROAAER10 INH (12:45)
[2018-05-08] MEDS ORDERED: IPRA0.00 INH (12:45)
[2018-05-08] MEDS ORDERED: METF10004 PO (12:45)
[2018-05-08] MEDS ORDERED: LOSA25TA14 PO (12:45)
[2018-05-08] MEDS ORDERED: HYDR25TAB PO (12:45)
[2018-05-08] MEDS ORDERED: MORP15TA2 PO (12:45)
[2018-05-08] MEDS ORDERED: TRIA1CR80 TOP (12:45)
[2018-05-08] MEDS ORDERED: ROPI0.5T PO (12:45)
[2018-05-08] MEDS ORDERED: ENBR50IN4 SC (12:45)
[2018-05-08] MEDS ORDERED: INCR1INH INH (12:45)
[2018-05-08] MEDS ORDERED: OSELTAMIVIR PHOSPHATE 75 MG CAP (TAMIFLU) PO ONE (12:45)
[2018-05-08] MEDS ORDERED: ZETI10TA30 PO (12:45)
[2018-05-08] MEDS ORDERED: OMEP20CA3 PO (12:45)
[2018-05-08] MEDS ORDERED: methylPREDNISolone INJ 125 MG/2 ML VIAL (J2930) IV ONE (12:45)
[2018-05-08] MEDS ORDERED: CETI10TA PO (12:45)
[2018-05-08] MEDS ORDERED: DULO1CAP2 PO (12:45)
[2018-05-08] MEDS ORDERED: INSUHUMDS SC (12:45)
[2018-05-08] MEDS ORDERED: SPIR-10 PO (12:45)
[2018-05-08] MEDS ORDERED: BYDU1INJ SC (12:45)
[2018-05-08] MEDS ORDERED: PRAV80TA2 PO (12:45)
[2018-05-08] MEDS ORDERED: VARE1TA PO (12:55)
[2018-05-08] MEDS ORDERED: INDO50CA PO (12:55)
[2018-05-08 14:15] LABS: ALBUMIN 3.6 GM/DL (3.2-5.2); ALT/SGPT 37 U/L (12-78); BILIRUBIN,DIRECT < 0.1 MG/DL (0.0-0.2); BILIRUBIN,TOTAL 0.4 MG/DL (0.2-1.0); BLOOD UREA NITROGEN 14 MG/DL (7-18); CALCIUM LEVEL 8.3 MG/DL (8.5-10.1); CARBON DIOXIDE LEVEL 29 MEQ/L (21-32); CHLORIDE LEVEL 99 MEQ/L (98-107); CPK CREATINE PHOSPHOKINASE 82 U/L (26-192); CREATININE FOR GFR 0.86 MG/DL (0.55-1.30); GLOMERULAR FILTRATION RATE > 60.0 (>51); GLUCOSE, FASTING 143 MG/DL (70-100); MB/CK RELATIVE INDEX 1.46 (< OR =4); POTASSIUM SERUM 4.5 MEQ/L (3.5-5.1); SODIUM LEVEL 134 MEQ/L (136-145); TOTAL PROTEIN 6.6 GM/DL (6.4-8.2); TROPONIN I < 0.02 NG/ML (< 0.10)
--- NOTE | 2018-05-08 14:48 | ECGEPIP ---
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 Order Number: [id number] Reading MD: Delia Hernandez Measurements Intervals [place] Rate: 96 P: 34 AK: 178 QRS: 14 QRSD: 93 T: 71 QT: 327 QTc: 415 Interpretive Statements SINUS RHYTHM NSTTW ABNORMALITY SIMILAR 03/10/18 Electronically Signed On 05-08-2018 14:48:01 EDT by Delia Hernandez
[2018-05-08] MEDS ORDERED: IPRATROPIUM 0.5MG/ALBUTEROL 2.5MG INH SOL UD 3ML (DUONEB)(J7620) INH PRN (15:15)
[2018-05-08] MEDS ORDERED: MORPHINE 30 MG TAB **MSIR PO PRN (15:15)
--- NOTE | 2018-05-08 16:20 | HPE ---
DATE OF ADMISSION: 05/08/2018 57-year-old female with past medical history of hypertension, diabetes, hyperlipidemia, history of fibromyalgia, psoriatic arthritis, chronic non oxygen dependent chronic obstructive pulmonary disease (COPD) presents to the emergency room from urgent care where she went due to 24 hours of severe shortness of breath and dry cough. She was found to be flu A positive and mildly hypoxic, 87% on room air and was brought to the emergency room (ER) for evaluation. In the ER, chest x-ray was negative. She was given 125 of Solu-Medrol and DuoNebs, and she does feel better at this time. She was given her first dose of Tamiflu. She denies any subjective feeling of fever, aches or chills, and will be admitted for further management. Again, past medical history of type 2 diabetes, gastroesophageal reflux disease (GERD), hyperlipidemia, hypertension, history of restless syndrome, osteoarthritis, anxiety disorder, fibromyalgia, psoriatic arthritis, chronic non oxygen dependent COPD. She has NO KNOWN DRUG ALLERGIES. FAMILY HISTORY: Noncontributory. SOCIAL HISTORY: Patient smokes two packs of cigarettes a day for many years. Denies alcohol or illicit drugs. MEDICATIONS: She takes at home are as follows: - albuterol as needed - cefatrizine 10 mg orally at bedtime - duloxetine 30 mg orally daily - etanercept 50 mg subcutaneous weekly - exanatide 2 mg subcutaneous weekly - ezetimibe 10 mg orally at bedtime - hydrochlorothiazide 25 mg orally twice a day - Incruse Ellipta 1 puff inhaled daily - indomethacin 50 mg orally twice daily - insulin detemir 20 units subcutaneous at bedtime - insulin human lispro sliding scale - losartan 25 mg orally at bedtime - metformin 1000 mg orally twice daily - morphine sulfate 50 mg orally every 8 hours as needed - omeprazole 40 mg orally daily - pravastatin 80 mg orally at bedtime - Pregabalin 200 mg orally twice daily - ropinirole 1 mg orally at bedtime - spironolactone 25 mg orally daily - Chantix 1 mg by mouth twice a day REVIEW OF SYSTEMS: Negative to all 10 major systems except what is mentioned in the history of present illness (HPI). VITAL SIGNS: Blood pressure 157/72. Heart rate is 101, regular. Respiratory rate 18. Temperature 98.8. Oxygen saturation is 91% on 2 liters nasal cannula. HEAD: Atraumatic, normocephalic NECK: Supple. No jugular venous distention (JVD). LUNGS: Have bilateral rhonchi. S1, S2 audible. No murmurs appreciated. ABDOMEN: Soft. Positive bowel sounds. No pedal edema. SKIN: Intact. NEUROLOGIC EXAMINATION: Patient awake, alert, oriented times three. LABORATORY DATA: WBC 4.7, hemoglobin is 13.1, hematocrit 40.4, platelets are 227,000. Sodium 134, potassium 4.5, chloride 99, CO2 29, BUN 14, creatinine 0.86, glucose 143, lactic acid 1.5. Troponin is less than 0.02. ABG blood gas shows a pH of 7.39, pCO2 is 49.1. IMPRESSION: 1. Chronic obstructive pulmonary disease exacerbation. 2. Flu A positive. PLAN: Patient will be admitted to medical-surgical floor. Will continue the patient on IV Solu-Medrol 40 every 8 and continue her DuoNebs every 4 hours as needed as scheduled at home. Will continue her oxygen at 2 liters nasal cannula and wean her off when possible. I will continue her Tamiflu 75 mg by mouth twice a day for her flu, and will continue all her other preadmission medications and continue her care on the medical-surgical floor.
[2018-05-08] MEDS ORDERED: PILL CRUSHER/CUTTER 1 EACH XX PRN (17:00)
[2018-05-08] MEDS ORDERED: LEVEMIR (INSULIN DETEMIR) 1 UNITS/0.01ML SC SCH (21:00)
[2018-05-08] MEDS: hydroCHLOROthiazide 25 MG TAB PO SCH (21:29)
[2018-05-08] MEDS: PRAVASTATIN 20 MG TAB PO SCH (21:29)
[2018-05-08] MEDS: OSELTAMIVIR PHOSPHATE 75 MG CAP (TAMIFLU) PO SCH (21:29)
[2018-05-08] MEDS: CETIRIZINE (ZyrTEC) 10 MG TAB PO SCH (21:30)
[2018-05-08] MEDS: methylPREDNISolone INJ 40 MG/1 ML VIAL (J2920) IV SCH (21:30)
[2018-05-08] MEDS: LOSARTAN 25 MG TAB PO SCH (21:30)
[2018-05-08] MEDS: PREGABALIN 100 MG CAP (LYRICA) PO SCH (21:30)
[2018-05-08] MEDS: EZETIMIBE 10 MG TAB (ZETIA) PO SCH (21:56)
[2018-05-08] MEDS: VARENICLINE 1 MG TABLET PO SCH (21:57)
[2018-05-08] MEDS: rOPINIRole 1MG TAB PO SCH (21:57)
[2018-05-08] MEDS: INDOMETHACIN 25 MG CAP PO SCH (21:57)
[2018-05-09] MEDS: methylPREDNISolone INJ 40 MG/1 ML VIAL (J2920) IV SCH ×2 (05:16→12:24)
[2018-05-09 07:10] LABS: BASO % 0.2 % (0.0-1.0); HEMATOCRIT 37.6 % (36.0-47.0); HEMOGLOBIN 12.3 g/dl (12.0-15.5); LYMPH # 0.3 10^3/uL (1.5-4.5); LYMPH % 7.7 % (24.0-44.0); MEAN CORPUSCULAR HEMOGLOBIN 28.2 pg (27.0-33.0); MEAN CORPUSCULAR HGB CONC 32.7 g/dl (32.0-36.5); MEAN CORPUSCULAR VOLUME 86.2 fl (80.0-96.0); MONO # 0.2 10^3/uL (0.0-0.8); MONO % 4.6 % (0.0-5.0); NEUTROPHILS # 3.8 10^3/uL (1.8-7.7); NEUTROPHILS % 86.6 % (36.0-66.0); PLATELET COUNT, AUTOMATED 228 10^3/uL (150-450); RED BLOOD COUNT 4.36 10^6/uL (4.00-5.40); WHITE BLOOD COUNT 4.4 10^3/uL (4.0-10.0)
[2018-05-09 07:36] LABS: BLOOD UREA NITROGEN 22 MG/DL (7-18); CALCIUM LEVEL 8.4 MG/DL (8.5-10.1); CARBON DIOXIDE LEVEL 30 MEQ/L (21-32); CHLORIDE LEVEL 97 MEQ/L (98-107); GLOMERULAR FILTRATION RATE > 60.0 (>51); GLUCOSE, FASTING 305 MG/DL (70-100); POTASSIUM SERUM 4.6 MEQ/L (3.5-5.1); SODIUM LEVEL 132 MEQ/L (136-145)
[2018-05-09 08:00] VITALS: BP 119/65
[2018-05-09] MEDS ORDERED: metFORMIN (GLUCOPHAGE) 1000 MG TABLET PO SCH (08:00)
[2018-05-09] MEDS: INDOMETHACIN 25 MG CAP PO SCH ×2 (08:39→21:15)
[2018-05-09] MEDS: SPIRONOLACTONE 25 MG TAB PO SCH (08:39)
[2018-05-09] MEDS: OMEPRAZOLE 20 MG CAP PO SCH (08:39)
[2018-05-09] MEDS: PREGABALIN 100 MG CAP (LYRICA) PO SCH ×2 (08:40→21:05)
[2018-05-09] MEDS: VARENICLINE 1 MG TABLET PO SCH ×2 (08:40→21:05)
[2018-05-09] MEDS: DULoxetine 30 MG CAP (CYMBALTA) PO SCH (08:40)
[2018-05-09] MEDS: hydroCHLOROthiazide 25 MG TAB PO SCH ×2 (08:40→17:56)
[2018-05-09] MEDS: OSELTAMIVIR PHOSPHATE 75 MG CAP (TAMIFLU) PO SCH ×2 (08:40→21:05)
[2018-05-09] MEDS ORDERED: DEXTROSE 50% 50 ML SYRINGE IV PRN (11:00)
[2018-05-09] MEDS ORDERED: GLUCOSE 4 GM CHEW TABLET PO PRN (11:00)
[2018-05-09] MEDS ORDERED: GLUCAGON FOR INJ 1 MG VIAL (J1610) SC PRN (11:00)
[2018-05-09 11:48] LABS: C REACTIVE PROTEIN QUANTITATIV 1.57 MG/DL (0.00-0.30)
[2018-05-09] MEDS: HEPARIN SOD (PORCINE) 5000 UNITS/ML VIAL SQ SCH ×2 (12:24→21:04)
[2018-05-09] MEDS: HumaLOG INSULIN (NovoLOG) PER UNIT SC SCH ×2 (12:24→18:42)
[2018-05-09] MEDS: ADVAIR HFA 230/21MCG INHALER INH SCH ×2 (13:24→21:00)
[2018-05-09 13:33] VITALS: BP 141/72
[2018-05-09] MEDS ORDERED: HumaLOG INSULIN (NovoLOG) PER UNIT SC SCH (21:00)
[2018-05-09] MEDS ORDERED: LEVEMIR (INSULIN DETEMIR) 1 UNITS/0.01ML SC SCH (21:00)
[2018-05-09] MEDS: PRAVASTATIN 20 MG TAB PO SCH (21:04)
[2018-05-09 21:05] VITALS: BP 124/74
[2018-05-09] MEDS: rOPINIRole 1MG TAB PO SCH (21:05)
[2018-05-09] MEDS: CETIRIZINE (ZyrTEC) 10 MG TAB PO SCH (21:05)
[2018-05-09] MEDS: EZETIMIBE 10 MG TAB (ZETIA) PO SCH (21:05)
[2018-05-09] MEDS: LOSARTAN 25 MG TAB PO SCH (21:05)
[2018-05-09 22:00] VITALS: BP 139/65
--- NOTE | 2018-05-09 22:24 | IPN ---
DATE: 05/09/2018 Patient seen and examined. Reported improved respiration. Admitted yesterday. Denies any chest pain, pressure or discomfort. Currently is weaning off of oxygen. Reported mild cough. VITAL SIGNS: Temperature 98.8, pulse 77, respiration 19, blood pressure 141/72, pulse ox 96% on room air. LABORATORY DATA: WBC 4.4, hemoglobin and hematocrit 12.3/37.6. Platelets 228. Chemistry: Sodium 132, potassium 4.6, chloride 97, bicarbonate 30, BUN 22, creatinine 1. PHYSICAL EXAMINATION: GENERAL: Patient morbidly obese. In no acute distress. HEENT: Normocephalic, atraumatic. PULMONARY: Bilateral mild expiratory wheeze. Minimal rhonchi. CARDIAC: Regular, S1, S2. ABDOMEN: Soft, obese. EXTREMITIES: No edema. ASSESSMENT AND PLAN: This is a 57-year-old female patient with underlying medical history of type 2 diabetes, gastroesophageal reflux disease (GERD), dyslipidemia, hypertension, restless leg, obstructive sleep apnea, on home CPAP, osteoarthritis, anxiety disorder, fibromyalgia, psoriatic arthritis, chronic obstructive pulmonary disease (COPD), admitted with shortness of breath and dry cough. Found to be in acute COPD exacerbation and influenza A positive at the Urgent Care. Brought to [facility] with mild hypoxia. PROBLEMS: 1. Acute COPD exacerbation secondary to influenza. Wean off of oxygen. Tamiflu is ordered. Solu-Medrol. Taper as tolerated. Albuterol nebulizer treatment. Advair has also been ordered. Smoking cessation. 2. Smoker. Chantix has been ordered. Smoking cessation counseling has been provided. 3. Hypertension. Continue hydrochlorothiazide, losartan, spironolactone. 4. Dyslipidemia. Continue current medication. 5. Diabetes. Holding oral medication. Basal bolus insulin. Adjust as needed. 6. Obesity complicating care. 7. Restless leg. Continue current medication. 8. Psoriatic arthritis, fibromyalgia. Continue current medication. 9. GERD. Continue current medication. 10. Deep venous thrombosis (DVT) prophylaxis. Heparin subcutaneous. 11. DISPOSITION: Pending clinical improvement. Taper steroid as tolerated.
[2018-05-10] MEDS ORDERED: methylPREDNISolone INJ 40 MG/1 ML VIAL (J2920) IV SCH (01:00)
[2018-05-10 06:00] VITALS: BP 133/63
[2018-05-10 07:09] LABS: HEMATOCRIT 36.8 % (36.0-47.0); HEMOGLOBIN 12.4 g/dl (12.0-15.5); MEAN CORPUSCULAR HEMOGLOBIN 28.4 pg (27.0-33.0); MEAN CORPUSCULAR HGB CONC 33.7 g/dl (32.0-36.5); MEAN CORPUSCULAR VOLUME 84.2 fl (80.0-96.0); PLATELET COUNT, AUTOMATED 238 10^3/uL (150-450); RED BLOOD COUNT 4.37 10^6/uL (4.00-5.40); WHITE BLOOD COUNT 6.4 10^3/uL (4.0-10.0)
[2018-05-10] MEDS ORDERED: HumaLOG INSULIN (NovoLOG) PER UNIT SC SCH (07:30)
[2018-05-10 07:34] LABS: BLOOD UREA NITROGEN 29 MG/DL (7-18); C REACTIVE PROTEIN QUANTITATIV 0.76 MG/DL (0.00-0.30); CALCIUM LEVEL 8.2 MG/DL (8.5-10.1); CARBON DIOXIDE LEVEL 28 MEQ/L (21-32); CHLORIDE LEVEL 96 MEQ/L (98-107); CREATININE FOR GFR 0.99 MG/DL (0.55-1.30); GLOMERULAR FILTRATION RATE > 60.0 (>51); GLUCOSE, FASTING 240 MG/DL (70-100); MAGNESIUM LEVEL 1.9 MG/DL (1.8-2.4); POTASSIUM SERUM 4.5 MEQ/L (3.5-5.1); SODIUM LEVEL 129 MEQ/L (136-145)
[2018-05-10] MEDS: ADVAIR HFA 230/21MCG INHALER INH SCH (08:24)
[2018-05-10] MEDS: SPIRONOLACTONE 25 MG TAB PO SCH (08:47)
[2018-05-10] MEDS: DULoxetine 30 MG CAP (CYMBALTA) PO SCH (08:47)
[2018-05-10] MEDS: INDOMETHACIN 25 MG CAP PO SCH (08:48)
[2018-05-10] MEDS: PREGABALIN 100 MG CAP (LYRICA) PO SCH (08:48)
[2018-05-10] MEDS: OMEPRAZOLE 20 MG CAP PO SCH (08:48)
[2018-05-10] MEDS: OSELTAMIVIR PHOSPHATE 75 MG CAP (TAMIFLU) PO SCH (08:48)
[2018-05-10] MEDS: VARENICLINE 1 MG TABLET PO SCH (08:48)
[2018-05-10] MEDS: HEPARIN SOD (PORCINE) 5000 UNITS/ML VIAL SQ SCH (08:49)
--- NOTE | 2018-05-10 08:50 | NOCOX ---
DATE OF PROCEDURE: 05/09/2018 Testing was done with the patient on room air. Her oxygen saturation at the beginning of the test was 93%. Total sampling time was 2 hours and 53 minutes. The patient's lowest oxygen saturation was 77%. The mean was 88.3%. The total time spent with a pulse oxygen less than 88% was 42 minutes and 42 seconds. The patient's graphical oximetry data showed that she had periodic episodes of desaturation overnight associated with some heart rate variability. IMPRESSION: Abnormal nocturnal oximetry study. The patient does qualify for nocturnal oxygen supplementation. However, based on her oximetry graphical data, would get a sleep study to evaluate formally for obstructive sleep apnea.
[2018-05-10] MEDS ORDERED: OSEL75CA PO (10:49)
[2018-05-10] MEDS ORDERED: PRED10TA2 PO (10:50)
--- NOTE | 2018-05-10 19:53 | DSES ---
DATE OF ADMISSION: 05/08/2018 DATE OF DISCHARGE: 05/10/2018 PRIMARY CARE PROVIDER: German Anderson FINAL DIAGNOSES: Acute COPD exacerbation secondary to influenza, smoker, hypertension, dyslipidemia, diabetes, obesity, restless leg, psoriatic arthritis, GERD. HISTORY OF PRESENT ILLNESS: This is a 57-year-old female patient with underlying medical history of hypertension, diabetes, dyslipidemia, history of fibromyalgia, psoriatic arthritis, chronic COPD who presented to the emergency room from the urgent care with 24-hours of worsening shortness of breath and dry cough and found to be influenza A positive with mild hypoxia of 87% on room air. HOSPITAL COURSE: The patient admitted the hospital and given Solu-Medrol and Tamiflu, Nebulizer treatment with marked improvement. Patient did not require oxygen and does have nocturnal pulse oximetry suggestive of obstructive sleep apnea and patient is morbidly obese. Patients steroids were tapered. Patient currently feeling much better. Passed a home safety evaluation and ready to be discharged for further care and followup as outpatient. VITAL SIGNS: Temperature 97.4, pulse 68, respirations 20, blood pressure 133/63, pulse ox 98% on room air. LABORATORY: WBC 6.4, hemoglobin and hematocrit 12.4 over 36.8, platelets 238. Chemistry: Sodium 129, potassium 4.5, chloride 96, bicarbonate 28, BUN 29, creatinine 0.99, c-reactive protein 0.76. PHYSICAL EXAMINATION: Patient is morbidly obese, alert, comfortable in no acute distress. HEENT: Normocephalic, atraumatic. PULMONARY: Decreased breath sounds bilateral. Minimal scattered wheeze. CARDIAC: Regular, S1, S2. ABDOMEN: Soft, nontender. EXTREMITIES: No edema. DISCHARGE MEDICATIONS: Prednisone taper as ordered, 10 mg tablet takes 4 tablets by mouth daily for 3 days, 3 tablets by mouth daily for 3 days, 2 tablets by mouth daily for 3 days, and then 1 tablet by mouth daily for 3 days and then stop, Tamiflu 75 mg by mouth twice a day for 3 more days, continue ProAir inhalation every 4 hours as needed, albuterol nebulizer every 4 hours as needed, Zyrtec 10 mg by mouth at bedtime, Duloxetine 20 mg by mouth daily, etanercept 50 mg subcu weekly, Zetia 10 mg by mouth at bedtime, Ellipta inhalation daily, Indomethacin 50 mg by mouth twice a day with meals, Levemir 20 units subcu at bedtime, Humalog AC subcu, Losartan 25 mg by mouth at bedtime, metformin 1000 mg by mouth twice a day, Morphine 15 mg every 8 hours as needed, omeprazole 40 mg by mouth daily, pravastatin 80 mg at bedtime, Lyrica 200 mg by mouth twice a day, Requip 1 mg by mouth at bedtime, Spiriva 25 mg by mouth daily, triamcinolone cream topical twice a day as needed, Chantix 1 mg by mouth twice a day. DISCHARGE INSTRUCTIONS: Please followup with Dr. Anderson appointment 05/16/2018 at 2:30 p.m.. Please check BMP with Dr. Anderson, hydrochlorothiazide on hold given hyponatremia, further glucose and blood pressure management as per primary care provider. Encouraged CPAP, weight loss, smoking cessation, consider sleep study as per Dr. Anderson. Return if symptoms worsen.
== END 2018-05-10 11:50 | disposition home or self-care (01) | DRG 191 ==
LOC: M ED 11:00 → M ED INP 15:13 → M MS5PR 05-09 13:17
PROVIDERS: ADMIT Internal Medicine; ATTEND Hospitalist
DX: J44.1 Chronic obstructive pulmonary disease with (acute) exacerbation (principal); Z68.41 Body mass index [BMI] 40.0-44.9, adult; J10.1 Influenza due to other identified influenza virus with other respiratory manifestations; I10 Essential (primary) hypertension; E11.9 Type 2 diabetes mellitus without complications; E78.5 Hyperlipidemia, unspecified; G25.81 Restless legs syndrome; M79.7 Fibromyalgia; L40.50 Arthropathic psoriasis, unspecified; E66.01 Morbid (severe) obesity due to excess calories; K21.9 Gastro-esophageal reflux disease without esophagitis; F41.9 Anxiety disorder, unspecified; F17.210 Nicotine dependence, cigarettes, uncomplicated; Z79.4 Long term (current) use of insulin; Z79.899 Other long term (current) drug therapy

== ENCOUNTER 2018-05-14 14:21 | Emergency (ER) | payer MEDICARE, MEDICAID ==
[~2018-05-14] VITALS: Ht 165.1 cm; Wt 114.5 kg
[~2018-05-14 14:21] MED LIST changes: +BYDU1INJ SC; +CETI10TA PO; +DULO1CAP2 PO; +ENBR50IN4 SC; +INCR1INH INH; +INDO50CA PO; +INSUDET SC; +INSUHUMDS SC; +LOSA25TA14 PO; +METF10004 PO; +MORP15TA2 PO; +OSEL75CA PO; +PRED10TA2 PO; +PROAAER10 INH; +TRIA1CR80 TOP; +VARE1TA PO; +ZETI10TA30 PO
--- NOTE | 2018-05-14 15:51 | ECGEPIP ---
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
[2018-05-14 15:58] LABS: BASO % 0.1 % (0.0-1.0); HEMOGLOBIN 13.5 g/dl (12.0-15.5); LYMPH # 1.1 10^3/uL (1.5-4.5); LYMPH % 12.1 % (24.0-44.0); MEAN CORPUSCULAR HEMOGLOBIN 28.2 pg (27.0-33.0); MEAN CORPUSCULAR HGB CONC 33.8 g/dl (32.0-36.5); MEAN CORPUSCULAR VOLUME 83.5 fl (80.0-96.0); MONO # 0.2 10^3/uL (0.0-0.8); MONO % 1.8 % (0.0-5.0); NEUTROPHILS # 7.8 10^3/uL (1.8-7.7); NEUTROPHILS % 85.3 % (36.0-66.0); PLATELET COUNT, AUTOMATED 258 10^3/uL (150-450); RED BLOOD COUNT 4.79 10^6/uL (4.00-5.40); WHITE BLOOD COUNT 9.1 10^3/uL (4.0-10.0)
[2018-05-14 15:59] LABS: VENOUS BASE EXCESS 0.3 (-2.0-2.0); VENOUS HCO3 25.8 MEQ/L (23.0-27.0); VENOUS O2 SATURATION 82.1 % (60.0-80.0); VENOUS PARTIAL PRESSURE CO2 44.8 mmHg (38.0-50.0); VENOUS PARTIAL PRESSURE O2 47.5 mmHg (30.0-50.0); VENOUS PH 7.378 UNITS (7.330-7.430); VENOUS STANDARD HCO3 24.4 MEQ/L; VENOUS TOTAL CO2 27.2 MEQ/L (24.0-28.0)
[2018-05-14] MEDS ORDERED: GI COCKTAIL 50ML BTL(HYOSCYAMINE/MAALOX/LIDOCAINE VISCOUS)(1:3:1) PO ONE (16:00)
[2018-05-14 16:09] LABS: INR 0.94; PROTHROMBIN TIME 12.7 SECONDS (12.1-14.4)
[2018-05-14 16:12] LABS: D-DIMER QUANT 379.07 ng/ml (<500)
--- NOTE | 2018-05-14 16:13 | REP ---
Chest two views HISTORY: Cough Comparison: 05/08/2018 There is elevation of the right hemidiaphragm. A curvilinear density is present overlying the heart seen in the lateral radiograph. This represents scar. The lungs are otherwise clear. The heart is normal in size. The pulmonary vasculature is normal in appearance. The bony structure is intact. IMPRESSION: No acute disease. Electronically Signed by Fili Hogan MD 05/14/2018 04:05 P
[2018-05-14 16:30] LABS: ALBUMIN 3.5 GM/DL (3.2-5.2); ALT/SGPT 31 U/L (12-78); BILIRUBIN,DIRECT 0.1 MG/DL (0.0-0.2); BILIRUBIN,TOTAL 0.3 MG/DL (0.2-1.0); BLOOD UREA NITROGEN 18 MG/DL (7-18); CALCIUM LEVEL 8.2 MG/DL (8.5-10.1); CARBON DIOXIDE LEVEL 24 MEQ/L (21-32); CHLORIDE LEVEL 97 MEQ/L (98-107); CPK CREATINE PHOSPHOKINASE 37 U/L (26-192); CREATININE FOR GFR 0.88 MG/DL (0.55-1.30); GLOMERULAR FILTRATION RATE > 60.0 (>51); GLUCOSE, FASTING 235 MG/DL (70-100); NT-PRO BNP 212 PG/ML (<125); POTASSIUM SERUM 4.8 MEQ/L (3.5-5.1); SODIUM LEVEL 130 MEQ/L (136-145); TOTAL PROTEIN 6.6 GM/DL (6.4-8.2); TROPONIN I < 0.02 NG/ML (< 0.10)
[2018-05-14] MEDS ORDERED: SUCR1TA PO (16:53)
[2018-05-14] MEDS ORDERED: PRIL20TA2 PO (16:53)
[2018-05-14 17:12] VITALS: BP 148/78
== END 2018-05-14 17:14 | disposition home or self-care (01) ==
LOC: EDSEX 14:21 → EDBD 14:21 → M ED 14:21
DX: J44.9 Chronic obstructive pulmonary disease, unspecified (principal); K21.9 Gastro-esophageal reflux disease without esophagitis; K20.9 Esophagitis, unspecified; E11.9 Type 2 diabetes mellitus without complications; I10 Essential (primary) hypertension; E78.5 Hyperlipidemia, unspecified; Z72.0 Tobacco use; Z79.4 Long term (current) use of insulin; Z79.899 Other long term (current) drug therapy

== ENCOUNTER → 2018-05-16 | Outpatient (REF) | payer MEDICARE, MEDICAID ==
[~2018-05-16] MED LIST changes: +PRIL20TA2 PO; +SUCR1TA PO
[2018-05-16 20:44] LABS: CALCIUM LEVEL 8.2 MG/DL (8.5-10.1); CREATININE FOR GFR 1.15 MG/DL (0.55-1.30); GLOMERULAR FILTRATION RATE 51.6 (>51); POTASSIUM SERUM 5.3 MEQ/L (3.5-5.1)
== END ==
LOC: M SFHCLERA 15:30
PROVIDERS: ATTEND Family Medicine
DX: I10 Essential (primary) hypertension (principal)

== ENCOUNTER → 2018-05-23 | Outpatient (REF) | payer MEDICARE, MEDICAID ==
[2018-05-23 12:19] LABS: BLOOD UREA NITROGEN 14 MG/DL (7-18); CALCIUM LEVEL 7.8 MG/DL (8.5-10.1); CARBON DIOXIDE LEVEL 30 MEQ/L (21-32); CHLORIDE LEVEL 99 MEQ/L (98-107); CREATININE FOR GFR 0.79 MG/DL (0.55-1.30); GLOMERULAR FILTRATION RATE > 60.0 (>51); GLUCOSE, FASTING 153 MG/DL (70-100); POTASSIUM SERUM 4.7 MEQ/L (3.5-5.1); SODIUM LEVEL 135 MEQ/L (136-145)
== END ==
LOC: M SFHCLERA 08:38
PROVIDERS: ATTEND Family Medicine
DX: E11.65 Type 2 diabetes mellitus with hyperglycemia (principal)

== ENCOUNTER → 2018-05-29 | Outpatient (CLI) | payer OTHER, MEDICAID ==
[~2018-05-29] MED LIST changes: -/WARF25TA PO; +COUM1TAB18 PO; +LISI40TA52 PO; -LISI40TAB PO
--- NOTE | 2018-06-10 23:49 | ECWPNPC ---
PATIENT NAME: ESTHER MAE : 1960 GENDER: FEMALE VISIT DATE: 05/29/2018 DISCHARGE DATE: 05/29/18 0954 VISIT LOCKED DATE TIME: PHYSICIAN: JOSE CORTEZ MD RESOURCE: JOSE CORTEZ MD REASON FOR APPOINTMENT 1. WC LEFT SHOULDER AND LEFT KNEE HISTORY OF PRESENT ILLNESS HISTORY OF PRESENT ILLNESS: PAIN THE PATIENT DESCRIBES THE PAIN... 57 YEAR OLD FEMALE PATIENT WITH A HISTORY OF CHRONIC LEFT SHOULDER AND LEFT KNEE PAIN. THE PATIENT DESCRIBES THE PAIN ACHING, SORE, STABBING, AND CONTINUOUS WITH A PAIN SCORE OF 6-10/10 DEPENDING ON PHYSICAL ACTIVITY. 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 THE PATIENT HAD A TOTAL LEFT KNEE REPLACEMENT IN 2013. THE PATIENT SAYS SHE DEVELOPED A TEAR AND BURSITIS IN HER LEFT SHOULDER FOLLOWING HER INJURY. THE PATIENT IS CURRENTLY USING LYRICA, MORPHINE, AND INDOMETHACIN TO AID IN PAIN RELIEF. THE PATIENT SAYS THAT WITHOUT THE USE OF THESE MEDICATIONS SHE IS UNABLE TO FUNCTION AND PERFORM DAILY ACTIVITIES SUCH CLEANING HER HOUSE, COOKING, AND GETTING GROCERIES. PATIENT DENIES UNEXPLAINABLE WEIGHT LOSS, FEVER, CHILLS, NEW CHANGES ON HER URINARY OR BOWEL CONTROL. FALL RISK SCREENING: SCREENING :NO FALLS REPORTED IN THE LAST YEAR CURRENT MEDICATIONS TAKING OMEPRAZOLE 20 MG CAPSULE DELAYED RELEASE 1 CAPSULE ORALLY BID TAKING IRON 28 MG TABLET 1 TABLET ORALLY ONCE A DAY TAKING INCRUSE ELLIPTA 62.5 MCG/INH AEROSOL POWDER BREATH ACTIVATED 1 PUFF INHALATION ONCE A DAY TAKING IPRATROPIUM-ALBUTEROL 0.5-2.5 (3) MG/3ML SOLUTION 3 ML INHALATION EVERY 4 HRS TAKING PROAIR HFA 108 (90 BASE) MCG/ACT AEROSOL SOLUTION 2 PUFFS NEEDED INHALATION EVERY 6 HRS TAKING HUMALOG 100 UNIT/ML SOLUTION DIRECTED SUBCUTANEOUS TID CC, NOTES: SLIDING SCALE: <=150: 0; 151-200: 3; 201-250: 6; 251-300: 9; 301-350: 12; 351-400: 15; MORE THAN 400: CALL CHECKER DUMP GROUNDS PHYSICIAN TAKING ROPINIROLE HCL 0.5 MG TABLET 2 TAB ORALLY AT BEDTIME TAKING CETIRIZINE HCL 10 MG TABLET 1 TABLET ORALLY ONCE A DAY TAKING LYRICA 200 MG CAPSULE 1 CAPSULE ORALLY TWICE A DAY MDD=2 90 DAY SUPPLY, NOTES: WORKERS COMP TAKING INDOMETHACIN 50 MG CAPSULE 1 CAPSULE WITH FOOD OR MILK ORALLY TWICE A DAY, NOTES: WAITING ON PRIOR AUTH TAKING TRIAMCINOLONE ACETONIDE 0.1 % CREAM 1 APPLICATION TO AFFECTED AREA EXTERNALLY TWICE A DAY TAKING ENBREL SURECLICK 50 MG/ML SOLUTION AUTO-INJECTOR 1 ML SUBCUTANEOUS , NOTES: MONDAY TAKING LEVEMIR 100 UNIT/ML SOLUTION 20U SUBCUTANEOUS BEFORE BEDTIME TAKING METFORMIN HCL 1000 MG TABLET 1 TAB(S) ORALLY BID TAKING BYDUREON 2 MG PEN-INJECTOR 1 INJECTION SUBCUTANEOUS WEEKLY TAKING ASPIR-81 81 MG TABLET DELAYED RELEASE 1 TABLET ORALLY ONCE A DAY TAKING PRAVASTATIN SODIUM 80 MG TABLET 1 TABLET ORALLY ONCE A DAY TAKING EZETIMIBE 10 MG TABLET 1 TABLET ORALLY ONCE A DAY TAKING SPIRONOLACTONE 25 MG TABLET 1 TABLET ORALLY ONCE A DAY TAKING LOSARTAN POTASSIUM 25 MG TABLET ORAL TAKING DULOXETINE HCL 30 MG CAPSULE DELAYED RELEASE PARTICLES 1 CAPSULE ORALLY ONCE A DAY TAKING CHANTIX CONTINUING MONTH JOJO 1 MG TABLET 1 TABLET ORALLY TWICE A DAY TAKING MORPHINE SULFATE 15 MG TABLET EXTENDED RELEASE 12 HOUR 1 TABLET ORALLY EVERY 8 HRS NEEDED MEDICATION LIST REVIEWED AND RECONCILED WITH THE PATIENT PAST MEDICAL HISTORY DM, A1C WAS 6.5 ON BYDUREON AND 72U/D OF LANTUS, PREVIOUSLY WAS HIGH 13. CHRONIC LUNG DISEASE, FOLLOWS WITH DR. WARREN LAST SEEN JULY 2017 GERD, HAS NEVER SEEN A GI DOCTOR, DENIES HAVING HAD ESOPHAGOGASTRODUODENOSCOPY. ARTHRITIS BACK PAIN/NECK PAIN, CHRONIC SHOULDER PAIN AND CHRONIC LEG PAIN FOR WHICH SHE IS ON PERCOCET X 4 YEARS HYPERLIPIDEMIA HYPERTENSION, DENIES HISTORY OF HEART FAILURE, S/P HEART CATH REPORTEDLY NEG 2006, HAS HISTORY OF "SILENT HEART ATTACK" SO FOLLOWS DR. SHETH WHO DID STRESS JULY 2017, SHE GETS RLS FIBROMYALGIA RA, FOLLOWS WITH RHEUMATOLOGY PA IN [facility], PREVIOUSLY ENBREL BEFORE LOSING INSURANCE, LAST SEEN AUGUST 2017 PNEUMONIA OBESITY, LOST 100 POUNDS INTENTIONALLY WITHOUT WEIGHT LOSS SURGERY ANEMIA: UNCERTAIN CAUSE, DIAGNOSIS BY CARDIOLOGY, ON IRON OBSTRUCTIVE SLEEP APNEA, DR. WARREN, USES BIPAP EVERY NIGHT ALLERGIES SEASONAL: RED, ITCHY EYES, HEADACHE, NASAL CONGESTION - ALLERGY SURGICAL HISTORY L KNEE REPLACEMENT 2013 CHOLECYSTECTOMY LEFT SHOULDER REPAIR [facility] FAMILY HISTORY FATHER: , RHEUMATOID, DIAGNOSED WITH STROKE, DIABETES, HYPERTENSION, HEART DISEASE MOTHER: , RHEUMATOID, CANCER, HYPERTENSION, HEART DISEASE MATERNAL GRAND MOTHER: RHEUMATOID 2 SISTER(S) - HEALTHY. 1 SON(S) - HEALTHY. MOTHER: LUNG CA\\\\NOLDER SISTER(LIVING)- HEART DISEASE\\\\N. SOCIAL HISTORY GENERAL: TOBACCO USE ARE YOU A:CURRENT SMOKER ARE YOU INTERESTED IN QUITTING?READY TO QUIT ON CHANTIX, HAS CUT BACK PREVIOUS QUIT ATTEMPTS?YES, WITHIN THE LAST 6 MONTHS. COUNSELED THE PATIENT ON TOBACCO USE, CESSATION [id number]/12/2019 HOW MANY CIGARETTES A DAY DO YOU SMOKE?5 OR LESS HOW SOON AFTER YOU WAKE UP DO YOU SMOKE YOUR FIRST CIGARETTE?6-30 MIN HOW OFTEN DO YOU SMOKE CIGARETTES?EVERY DAY PATIENT COUNSELED ON THE DANGERS OF TOBACCO USE AND URGED TO QUIT:05/29/2018 SMOKING CESSATION INFORMATION GIVEN05/08/2018 LATEX QUESTIONNAIRE LATEX ALLERGY : HAVE YOU EVER DEVELOPED ANY TYPE OF REACTION AFTER HANDLING LATEX PRODUCTS SUCH RUBBER GLOVES, CONDOMS, DIAPHRAGMS, BALLOONS, SOCKS, OR UNDERWEAR?NO LATEX ALLERGY : HAVE YOU EVER DEVELOPED ANY TYPE OF REACTION DURING OR AFTER DENTAL APPOINTMENT, VAGINAL/RECTAL EXAMINATION, SURGICAL PROCEDURE, OR ANY OTHER EXPOSURE?NO DATE ASKED : 05/08/2018 LATEX RISK : HAVE YOU EVER HAD ANY DIFFICULTY BREATHING OR HIVES AFTER EATING OR HANDLING ANY FRUITS, OR VEGETABLES; SUCH KIWI, BANANAS, STONE FRUITS, OR CHESTNUTSNO LATEX RISK : DO YOU HAVE A PREVIOUS PERSONAL HISTORY OF MORE THAN NINE SURGERIES, SPINA BIFIDA, OR REPEATED CATHERTIZATIONS? NO LATEX RISK : ARE YOU FREQUENTLY EXPOSED TO LATEX PRODUCTS IN YOUR OCCUPATION?NO BMI CARE GOAL FOLLOW-UP ABOVE NORMAL BMI FOLLOW-UPDIETARY MANAGEMENT EDUCATION, GUIDANCE, AND COUNSELING ALCOHOL SCREENING DID YOU HAVE A DRINK CONTAINING ALCOHOL IN THE PAST YEAR?NO POINTS0 INTERPRETATIONNEGATIVE RECREATIONAL DRUG USE DRUG USE?NO CAFFEINE CAFFEINE USE?YES HOW OFTEN AND HOW MUCH? 2 CUPS COFFEE PER DAY DAILY BASIS SEXUAL HX HAD SEX IN THE LAST 12 MONTHS (VAGINAL, ORAL, OR ANAL)?NO HAVE YOU EVER HAD AN STD?NO HIV / HEP-C SCREENING HIV TEST OFFERED TO PATIENT:YES DATE OFFERED:05/16/2018 TEST ACCEPTED:NO HEP-C TEST OFFERED TO PATIENT:NO REASON:PATIENT DECLINED BROCHURE PROVIDED TO PATIENTYES TEMPLE [id number] SABIANISM LANGUAGE LANGUAGES SPOKEN:LUXEMBOURGISH EDUCATION LEVEL OF EDUCATION:HIGH SCHOOL LEARNING BARRIERS / SPECIAL NEEDS CHANGE FROM LAST VISIT?NO BARRIERS TO LEARNING?NO HEARING IMPAIRED?NO VISION IMPAIRED?NO COGNITIVELY IMPAIRED?NO READINESS TO LEARN?YES LEARNING PREFERENCES?NO LEARNING CAPABILITIES PRESENT?YES EMOTIONAL BARRIERS?NO SPECIAL DEVICES?YES :OTHER BIPAP 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 DIET: REGULAR. EXERCISE: NO REGULAR EXERCISE. MARITAL STATUS: SINGLE. OTHERS AT HOME: NONE. PAIN CLINIC PFS, CLERGY, PUBLIC HEALTH REFERRALS PFS REFERRAL NEEDED?NO CLERGY REFERRAL NEEDED?NO PUBLIC HEALTH REFERRAL NEEDED?NO WAS THE PROVIDER NOTIFIED OF ANY PERTINENT INFO?NO HAS THE PATIENT BEEN EDUCATED REGARDING HIS/HER PLAN OF CARE?YES HAS THE PATIENT BEEN EDUCATED REGARDING PAIN, THE RISK FOR PAIN, THE IMPORTANCE OF EFFECTIVE PAIN MANAGEMENT, AND THE PAIN ASSESSMENT PROCESS?YES ADVANCE DIRECTIVE ADVANCE DIRECTIVE DISCUSSED WITH PATIENT:YES HCP - SONIA BENNETT (SISTER) REVIEWED WITH PATIENT 12/25/17 0914 JSREVEIWED WT PT 05/29/18 0903 BV. HOSPITALIZATION/MAJOR DIAGNOSTIC PROCEDURE SURGICALY RELATED PNEUMONIA-RESP FAILURE ON BIPAP 12/28/15 INFLUENZA/COPD 05/08/18 REVIEW OF SYSTEMS REVIEWED BY: PROVIDER: JOSE CORTEZ MD . CONSTITUTIONAL: ANY CHANGE IN YOUR MEDICAL CONDITION? YES, PT WAS HOSPITALIZED 2 DAYS IN EARLY APRIL FOR FLU AND COPD EXACERBATION. . CHILLS NO . FEVER NO . INFECTION: DO YOU HAVE NEW INFECTIONS? NO . DO YOU HAVE HISTORY OF MRSA? NO . MUSCULOSKELETAL: ANY NEW PATTERNS OF PAIN OR NUMBNESS? NO . GASTROENTEROLOGY: ANY NEW CHANGE IN BOWEL CONTROL? NO . GENITOURINARY: ANY NEW CHANGE IN BLADDER CONTROL? NO . IS THERE A CHANCE YOU COULD BE ? NO . HEMATOLOGY/LYMPH: DO YOU TAKE ANY BLOOD THINNERS? (FOR EXAMPLE- COUMADIN, PLAVIX, AGGRENOX, PLATEL, PRADAXA, OR XARELTO) NO . WHEN WAS YOUR LAST DOSE? DATE: TIME: . NEUROLOGY: HAVE YOU FALLEN IN THE PAST 12 MONTHS? YES . ANY NEW EXTREMITY NUMBNESS OR WEAKNESS? NO . CARDIOLOGY: DO YOU HAVE A PACEMAKER OR DEFIBRILLATOR? NO . RESPIRATORY: HAVE YOU BEEN SICK IN THE PAST WEEK? YES, PT WAS HOSPITALIZED 2 WEEKS AGO FOR FLU AND COPD. STATES SHE HAS BEEN FEELING BETTER THE PAST COUPLE DAYS. . FEVER NO . FLU LIKE SYMPTOMS? NO . COUGH NO . INTEGUMENTARY: DO YOU HAVE ANY RASHES OR OPEN SORES? NO . ALLERGIC/IMMUNO: ARE YOU ALLERGIC TO IV DYE? NO . ANY NEW ALLERGIES? NO . PSYCHIATRIC: DO YOU HAVE THOUGHTS OF HURTING YOURSELF OR SOMEONE ELSE? NO . ARE YOU ABUSED, NEGLECTED, OR IN AN UNSAFE ENVIRONMENT? NO . ENDOCRINOLOGY: ARE YOU DIABETIC? NO . OTHER: DO YOU NEED ANY PRESCRIPTIONS? NO . IF YES, PLEASE LIST: ____ . ANY NEW PROBLEMS WITH YOUR MEDICATIONS? NO . WHEN DID YOU LAST EAT? ____ . WHEN DID YOU LAST DRINK? ____ . WHAT DID YOU LAST DRINK? ____ . NAME OF PERSON DRIVING YOU HOME? ____ . DO YOU HAVE ANY OTHER QUESTIONS OR CONCERNS NO . VITAL SIGNS WT 254.8 LBS, HT 66.75 IN, BMI 40.20 INDEX, BP 164/88 MANUAL, HR 79 /MIN, RR 20 /MIN, TEMP 98.3 F, OXYGEN SAT % 95%, REVIEWED BY: RUSSELL. EXAMINATION GENERAL EXAMINATION: PATIENT IS ALERT O X 3 AND COOPERATIVE. TENDERNESS IN THE LEFT SHOULDER AND THE LEFT KNEE, PATIENT CAN ABDUCT THE LEFT ARM TO SHOULDER LEVEL. LEFT LEG IS WEAKER AT EXTENSION AND FLEXION. MRI OF THE LEFT SHOULDER DONE ON 07/25/2017 SHOWS SUPRASPINATUS TENDINITIS. X-RAY OF THE LEFT KNEE DONE ON 03/20/2013 SHOWS POST TOTAL KNEE ARTHROPLASTY. 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 MAE'S PAIN MANAGEMENT CASE. I WILL PERFORM A URINE TOXICOLOGY TODAY. THE PATIENT WILL CONTINUE USING LYRICA FOR THE NEUROPATHIC PAIN AND MORPHINE FOR THE SOMATIC PAIN. ISTOP _#[id number] WAS REVIEWED. THE PATIENT WILL REDUCE THE INDOMETHACIN DUE TO THE INCREASED RISK OF GASTRIC PROBLEMS, KIDNEY PROBLEMS, AND CARDIOVASCULAR EVENTS ASSOCIATED WITH THE USE OF NSAIDS. THE PATIENT WILL FOLLOW UP IN 3 MONTHS. INSTRUCTIONS WERE GIVEN, QUESTIONS WERE ANSWERED, PATIENT REPORTS UNDERSTANDING AND AGREES WITH THE PLAN. I, TANIKA CORRIGAN, DOCUMENTED THE ABOVE INFORMATION ACTING A SCRIBE FOR DR. CORTEZ. I HAVE REVIEWED THE ABOVE DOCUMENT, WRITTEN BY TANIKA ROSS AND I VERIFY THAT IT IS ACCURATE. . PROCEDURES PN WORKMANS' COMP OPINION IN YOUR OPINION, WAS THE INCIDENT THAT THE PATIENT DESCRIBED THE COMPETENT MEDICAL CAUSE OF THIS INJURY/ILLNESS? YES ARE THE PATIENT'S COMPLAINTS CONSISTENT WITH HIS/HER HISTORY OF THE INJURY/ILLNESS? YES IS THE PATIENT'S HISTORY OF THE INJURY/ILLNESS CONSISTENT WITH YOUR OBJECTIVE FINDING? YES WHAT IS THE PERCENTAGE OF TEMPORARY IMPAIRMENT? TOTAL = 100% IS THE PATIENT WORKING? NO DOCTOR ON SITE: JOSE HAUSER MD PROCEDURE CODES FA211 ESTABILISHED PATIENT [facility] FACILITY CHARGE G8427 CURRENT MEDS W/DOSAGES DOCUMENTED G8730 PAIN ASSESS POS TOOL F/U PLAN DOC DISPOSITION & COMMUNICATION FOLLOW UP 3 MONTHS ELECTRONICALLY SIGNED BY JOSE CORTEZ MD, ON 06/10/2018 AT 08:40 PM EDT DISCLAIMER : THIS IS A VISIT SUMMARY EXTRACTED FROM THE [email or web address] CHART. IT IS NOT A COPY OF THE [employer] PROGRESS NOTE. PRETTY
== END ==
LOC: M PAIN 08:30
PROVIDERS: ATTEND Anesthesiology
DX: M79.2 Neuralgia and neuritis, unspecified (principal); M25.512 Pain in left shoulder; M25.562 Pain in left knee; G89.29 Other chronic pain; E11.9 Type 2 diabetes mellitus without complications; M75.82 Other shoulder lesions, left shoulder; J44.1 Chronic obstructive pulmonary disease with (acute) exacerbation; K21.9 Gastro-esophageal reflux disease without esophagitis; E78.5 Hyperlipidemia, unspecified; I10 Essential (primary) hypertension; M79.7 Fibromyalgia; M06.9 Rheumatoid arthritis, unspecified; G47.33 Obstructive sleep apnea (adult) (pediatric); F17.210 Nicotine dependence, cigarettes, uncomplicated; J30.2 Other seasonal allergic rhinitis; E66.01 Morbid (severe) obesity due to excess calories; D50.9 Iron deficiency anemia, unspecified; Z68.41 Body mass index [BMI] 40.0-44.9, adult; Z79.4 Long term (current) use of insulin; Z79.51 Long term (current) use of inhaled steroids; Z79.82 Long term (current) use of aspirin; Z79.899 Other long term (current) drug therapy; Z96.652 Presence of left artificial knee joint

== ENCOUNTER → 2018-07-11 | Outpatient (CLI) | payer MEDICARE, MEDICAID ==
[~2018-07-11] MED LIST changes: +BUPIVACAINE HCL 0.25% 10 ML VIAL As Ordered ONE; +BUPIVACAINE HCL 0.25% 30 ML VIAL As Ordered ONE; -INDO50CA PO; +INDO50CA11 PO; +TRIAMCINOLONE ACETONIDE SUSP 40 MG/ML VIAL (J3301) As Ordered ONE
--- NOTE | 2018-07-23 00:17 | ECWPNPC ---
PATIENT NAME: ESTHER MAE : 1960 GENDER: FEMALE VISIT DATE: 07/11/2018 DISCHARGE DATE: 07/11/18 1120 VISIT LOCKED DATE TIME: PHYSICIAN: JOSE CORTEZ MD RESOURCE: JOSE CORTEZ MD REASON FOR APPOINTMENT 1. TPI NON COMP HISTORY OF PRESENT ILLNESS HISTORY OF PRESENT ILLNESS: PAIN THE PATIENT DESCRIBES THE PAIN... FALL RISK SCREENING: SCREENING :NO FALLS REPORTED IN THE LAST YEAR CURRENT MEDICATIONS TAKING DEBROX 6.5 % SOLUTION 5 DROPS INTO LEFT AND RIGHT EARS OTIC TWICE A DAY, NOTES: 07/10 AM TAKING LOSARTAN POTASSIUM 25 MG TABLET 1 TABLET ORALLY ONCE A DAY, NOTES: 07/10 AM TAKING OMEPRAZOLE 20 MG CAPSULE DELAYED RELEASE 1 CAPSULE ORALLY BID, NOTES: 07/10 AM TAKING IRON 28 MG TABLET 1 TABLET ORALLY ONCE A DAY, NOTES: 07/10 AM TAKING INCRUSE ELLIPTA 62.5 MCG/INH AEROSOL POWDER BREATH ACTIVATED 1 PUFF INHALATION ONCE A DAY, NOTES: 07/10 AM TAKING IPRATROPIUM-ALBUTEROL 0.5-2.5 (3) MG/3ML SOLUTION 3 ML INHALATION EVERY 4 HRS, NOTES: 07/10 AM TAKING PROAIR HFA 108 (90 BASE) MCG/ACT AEROSOL SOLUTION 2 PUFFS NEEDED INHALATION EVERY 6 HRS, NOTES: 07/10 AM TAKING ROPINIROLE HCL 0.5 MG TABLET 2 TAB ORALLY AT BEDTIME, NOTES: 07/10 PM TAKING CETIRIZINE HCL 10 MG TABLET 1 TABLET ORALLY ONCE A DAY, NOTES: 07/10 AM TAKING INDOMETHACIN 50 MG CAPSULE 1 CAPSULE WITH FOOD OR MILK ORALLY TWICE A DAY, NOTES: WAITING ON PRIOR AUTH TAKING ENBREL SURECLICK 50 MG/ML SOLUTION AUTO-INJECTOR 1 ML SUBCUTANEOUS , NOTES: MONDAY TAKING LEVEMIR 100 UNIT/ML SOLUTION 20U SUBCUTANEOUS BEFORE BEDTIME, NOTES: 07/10 AM TAKING METFORMIN HCL 1000 MG TABLET 1 TAB(S) ORALLY BID, NOTES: 07/11 PM TAKING BYDUREON 2 MG PEN-INJECTOR 1 INJECTION SUBCUTANEOUS WEEKLY, NOTES: 07/10 PM TAKING ASPIR-81 81 MG TABLET DELAYED RELEASE 1 TABLET ORALLY ONCE A DAY, NOTES: 07/10 AM TAKING SPIRONOLACTONE 25 MG TABLET 1 TABLET ORALLY ONCE A DAY, NOTES: 07/10 PM TAKING CHANTIX CONTINUING MONTH JOJO 1 MG TABLET 1 TABLET ORALLY TWICE A DAY, NOTES: 07/10 PM TAKING LYRICA 200 MG CAPSULE 1 CAPSULE ORALLY TWICE A DAY MDD=2 90 DAY SUPPLY, NOTES: WORKERS COMP PM TAKING MORPHINE SULFATE ER 15 MG TABLET EXTENDED RELEASE 1 TABLET ORALLY EVERY 8 HOURS MDD 3, NOTES: 07/10 5PM TAKING PRAVASTATIN SODIUM 80 MG TABLET 1 TABLET ORALLY ONCE A DAY, NOTES: 07/10 PM TAKING DULOXETINE HCL 60 MG CAPSULE DELAYED RELEASE PARTICLES 1 CAPSULE ORALLY ONCE A DAY, NOTES: DOSE INCREASE 07/10 PM TAKING HUMALOG 100 UNIT/ML SOLUTION DIRECTED DX: E11.9 SUBCUTANEOUS TID CC, NOTES: SLIDING SCALE: <=150: 0; 151-200: 3; 201-250: 6; 251-300: 9; 301-350: 12; 351-400: 15; MORE THAN 400: CALL PATIENT ACCOUNTS SPECIALIST PHYSICIAN TAKING NOVOLOG 100 UNIT/ML SOLUTION DIRECTED E11.9 SUBCUTANEOUS TID CC, NOTES: SLIDING SCALE: <=150: 0; 151-200: 3; 201-250: 6; 251-300: 9; 301-350: 12; 351-400: 15; MORE THAN 400: CALL PATIENT ACCOUNTS SPECIALIST PHYSICIAN NOT-TAKING TRIAMCINOLONE ACETONIDE 0.1 % CREAM 1 APPLICATION TO AFFECTED AREA EXTERNALLY TWICE A DAY MEDICATION LIST REVIEWED AND RECONCILED WITH THE PATIENT PAST MEDICAL HISTORY DM, A1C WAS 6.5 ON BYDUREON AND 72U/D OF LANTUS, PREVIOUSLY WAS HIGH 13. CHRONIC LUNG DISEASE, FOLLOWS WITH DR. WARREN LAST SEEN JULY 2017 GERD, HAS NEVER SEEN A GI DOCTOR, DENIES HAVING HAD ESOPHAGOGASTRODUODENOSCOPY. ARTHRITIS BACK PAIN/NECK PAIN, CHRONIC SHOULDER PAIN AND CHRONIC LEG PAIN FOR WHICH SHE IS ON PERCOCET X 4 YEARS HYPERLIPIDEMIA HYPERTENSION, DENIES HISTORY OF HEART FAILURE, S/P HEART CATH REPORTEDLY NEG 2006, HAS HISTORY OF "SILENT HEART ATTACK" SO FOLLOWS DR. SHETH WHO DID STRESS JULY 2017, SHE GETS RLS FIBROMYALGIA RA, FOLLOWS WITH RHEUMATOLOGY PA IN [facility], PREVIOUSLY ENBREL BEFORE LOSING INSURANCE, LAST SEEN AUGUST 2017 PNEUMONIA OBESITY, LOST 100 POUNDS INTENTIONALLY WITHOUT WEIGHT LOSS SURGERY ANEMIA: UNCERTAIN CAUSE, DIAGNOSIS BY CARDIOLOGY, ON IRON OBSTRUCTIVE SLEEP APNEA, DR. WARREN, USES BIPAP EVERY NIGHT ALLERGIES SEASONAL: RED, ITCHY EYES, HEADACHE, NASAL CONGESTION - ALLERGY SURGICAL HISTORY L KNEE REPLACEMENT 2013 CHOLECYSTECTOMY [facility] FATHER: , RHEUMATOID, DIAGNOSED WITH DIABETES, HYPERTENSION, HEART DISEASE, STROKE MOTHER: , RHEUMATOID, HYPERTENSION, HEART DISEASE, CANCER MATERNAL GRAND MOTHER: RHEUMATOID 2 SISTER(S) - HEALTHY. 1 SON(S) - HEALTHY. MOTHER: LUNG CA\\\\\\\\\\\\\\\\NOLDER SISTER(LIVING)- HEART DISEASE\\\\\\\\\\\\\\\\N. SOCIAL HISTORY GENERAL: TOBACCO USE ARE YOU A:CURRENT SMOKER ARE YOU INTERESTED IN QUITTING?READY TO QUIT ON CHANTIX, HAS CUT BACK PREVIOUS QUIT ATTEMPTS?YES, WITHIN THE LAST 6 MONTHS. COUNSELED THE PATIENT ON TOBACCO USE, CESSATION [id number]/06/2019 HOW MANY CIGARETTES A DAY DO YOU SMOKE?5 OR LESS HOW SOON AFTER YOU WAKE UP DO YOU SMOKE YOUR FIRST CIGARETTE?6-30 MIN HOW OFTEN DO YOU SMOKE CIGARETTES?EVERY DAY PATIENT COUNSELED ON THE DANGERS OF TOBACCO USE AND URGED TO QUIT:07/11/2018 SMOKING CESSATION INFORMATION GIVEN07/02/2018 HIV / HEP-C SCREENING HIV TEST OFFERED TO PATIENT:YES DATE OFFERED:05/16/2018 TEST ACCEPTED:NO HEP-C TEST OFFERED TO PATIENT:NO REASON:PATIENT DECLINED BROCHURE PROVIDED TO PATIENTYES OTHERS AT HOME: NONE. EDUCATION LEVEL OF EDUCATION:HIGH SCHOOL DIET: REGULAR. LANGUAGE LANGUAGES SPOKEN:SERBIAN DOMESTIC VIOLENCE DO YOU FEEL SAFE IN YOUR ENVIRONMENT?YES BMI CARE GOAL FOLLOW-UP ABOVE NORMAL BMI FOLLOW-UPDIETARY MANAGEMENT EDUCATION, GUIDANCE, AND COUNSELING RECREATIONAL DRUG USE DRUG USE?NO EXERCISE: NO REGULAR EXERCISE. LEARNING BARRIERS / SPECIAL NEEDS CHANGE FROM LAST VISIT?NO BARRIERS TO LEARNING?NO HEARING IMPAIRED?NO VISION IMPAIRED?NO COGNITIVELY IMPAIRED?NO READINESS TO LEARN?YES LEARNING PREFERENCES?NO LEARNING CAPABILITIES PRESENT?YES EMOTIONAL BARRIERS?NO SPECIAL DEVICES?YES :OTHER BIPAP FILM REPRODUCER NEEDED?NO PAIN CLINIC PFS, CLERGY, PUBLIC HEALTH REFERRALS PFS REFERRAL NEEDED?NO CLERGY REFERRAL NEEDED?NO PUBLIC HEALTH REFERRAL NEEDED?NO WAS THE PROVIDER NOTIFIED OF ANY PERTINENT INFO?YES HAS THE PATIENT BEEN EDUCATED REGARDING HIS/HER PLAN OF CARE?YES HAS THE PATIENT BEEN EDUCATED REGARDING PAIN, THE RISK FOR PAIN, THE IMPORTANCE OF EFFECTIVE PAIN MANAGEMENT, AND THE PAIN ASSESSMENT PROCESS?YES LATEX QUESTIONNAIRE LATEX ALLERGY : HAVE YOU EVER DEVELOPED ANY TYPE OF REACTION AFTER HANDLING LATEX PRODUCTS SUCH RUBBER GLOVES, CONDOMS, DIAPHRAGMS, BALLOONS, SOCKS, OR UNDERWEAR?NO LATEX ALLERGY : HAVE YOU EVER DEVELOPED ANY TYPE OF REACTION DURING OR AFTER DENTAL APPOINTMENT, VAGINAL/RECTAL EXAMINATION, SURGICAL PROCEDURE, OR ANY OTHER EXPOSURE?NO LATEX RISK : HAVE YOU EVER HAD ANY DIFFICULTY BREATHING OR HIVES AFTER EATING OR HANDLING ANY FRUITS, OR VEGETABLES; SUCH KIWI, BANANAS, STONE FRUITS, OR CHESTNUTSNO LATEX RISK : DO YOU HAVE A PREVIOUS PERSONAL HISTORY OF MORE THAN NINE SURGERIES, SPINA BIFIDA, OR REPEATED CATHERTIZATIONS? NO LATEX RISK : ARE YOU FREQUENTLY EXPOSED TO LATEX PRODUCTS IN YOUR OCCUPATION?NO DATE ASKED : 07/11/2018 CAFFEINE CAFFEINE USE?YES HOW OFTEN AND HOW MUCH? 2 CUPS COFFEE PER DAY DAILY BASIS ADVANCE DIRECTIVE ADVANCE DIRECTIVE DISCUSSED WITH PATIENT:YES HCP - SONIA BENNETT (SISTER) MANDAEISM [id number] MANDAEISM MARITAL STATUS: SINGLE. ALCOHOL SCREENING DID YOU HAVE A DRINK CONTAINING ALCOHOL IN THE PAST YEAR?NO POINTS0 INTERPRETATIONNEGATIVE OCCUPATION: UNEMPLOYED. SEXUAL HX HAD SEX IN THE LAST 12 MONTHS (VAGINAL, ORAL, OR ANAL)?NO HAVE YOU EVER HAD AN STD?NO REVIEWED WITH PATIENT 12/25/17 0914 [facility]RE[facility]WED [facility] PT 05/29/18 0903 BV. HOSPITALIZATION/MAJOR DIAGNOSTIC PROCEDURE SURGICALY RELATED PNEUMONIA-RESP FAILURE ON BIPAP 12/28/15 INFLUENZA/COPD 05/08/18 REVIEW OF SYSTEMS REVIEWED BY: PROVIDER: . CONSTITUTIONAL: ANY CHANGE IN YOUR MEDICAL CONDITION? NO . CHILLS NO . FEVER NO . INFECTION: DO YOU HAVE NEW INFECTIONS? NO . DO YOU HAVE HISTORY OF MRSA? NO . MUSCULOSKELETAL: ANY NEW PATTERNS OF PAIN OR NUMBNESS? NO . GASTROENTEROLOGY: ANY NEW CHANGE IN BOWEL CONTROL? NO . GENITOURINARY: ANY NEW CHANGE IN BLADDER CONTROL? NO . IS THERE A CHANCE YOU COULD BE ? NO . HEMATOLOGY/LYMPH: DO YOU TAKE ANY BLOOD THINNERS? (FOR EXAMPLE- COUMADIN, PLAVIX, AGGRENOX, PLATEL, PRADAXA, OR XARELTO) NO . WHEN WAS YOUR LAST DOSE? DATE: TIME: . NEUROLOGY: HAVE YOU FALLEN IN THE PAST 12 MONTHS? NO . ANY NEW EXTREMITY NUMBNESS OR WEAKNESS? NO . CARDIOLOGY: DO YOU HAVE A PACEMAKER OR DEFIBRILLATOR? NO . RESPIRATORY: HAVE YOU BEEN SICK IN THE PAST WEEK? NO . FEVER NO . FLU LIKE SYMPTOMS? NO . COUGH NO . INTEGUMENTARY: DO YOU HAVE ANY RASHES OR OPEN SORES? NO . ALLERGIC/IMMUNO: ARE YOU ALLERGIC TO IV DYE? NO . ANY NEW ALLERGIES? NO . PSYCHIATRIC: DO YOU HAVE THOUGHTS OF HURTING YOURSELF OR SOMEONE ELSE? NO . ARE YOU ABUSED, NEGLECTED, OR IN AN UNSAFE ENVIRONMENT? NO . ENDOCRINOLOGY: ARE YOU DIABETIC? NO . OTHER: DO YOU NEED ANY PRESCRIPTIONS? NO . IF YES, PLEASE LIST: ____ . ANY NEW PROBLEMS WITH YOUR MEDICATIONS? NO . WHEN DID YOU LAST EAT? 07/10 5PM . WHEN DID YOU LAST DRINK? 07/10 10PM . WHAT DID YOU LAST DRINK? WATER . NAME OF PERSON DRIVING YOU HOME? SONIA . DO YOU HAVE ANY OTHER QUESTIONS OR CONCERNS NO . VITAL SIGNS WT 252.8 LBS, HT 66.75 IN, BMI 39.89 INDEX, BP 199/86 MM HG, REPEAT BP 160/100MANUAL, HR 82 /MIN, RR 18 /MIN, TEMP 97.3 F, OXYGEN SAT % 94%, SAFE IN ENV? (Y/N) Y, NA INITIALS IA 10:05, REVIEWED BY: RACHEL. ASSESSMENTS MYALGIA, OTHER SITE - M79.18 (PRIMARY) PROCEDURES PN TRIGGER POINT INJECTION WITH STEROIDS PRE PROCEDURE DIAGNOSIS 1. MYALGIA 2. PAIN AT BILATERAL LOW BACK AREA POST PROCEDURE DIAGNOSIS 1. MYALGIA 2. PAIN AT BILATERAL LOW BACK AREA PROCEDURE TRIGGER POINT INJECTION AT BILATERAL LOW BACK AREA SURGEON DR. JOSE CORTEZ FIBREGLASS LAMINATOR NONE ANESTHESIA LOCAL PRE PROCEDURE NOTE THE PATIENT HAS A HISTORY OF CHRONIC PAIN AT THE RIGHT AND LEFT LOW BACK AREA. I EVALUATE THE PATIENT AND REVIEWED THE CHART. THERE IS EVIDENCE OF BANDS OF TISSUE WITH RESTRICTION OF MOVEMENT AND PRESENCE OF TRIGGER POINT AT THE AFFECTED AREA. I WENT OVER THE RISKS, ALTERNATIVES, AND BENEFITS ASSOCIATED WITH THIS PROCEDURE. THE PATIENT WOULD LIKE TO PROCEED AND GIVE CONSENT TO PERFORMED THE PROCEDURE. THE PATIENT DENIES UNEXPLAINABLE WEIGHT LOSS, FEVER, CHILLS, OR NEW CHANGES IN URINARY OR BOWEL CONTROL DESCRIPTION OF PROCEDURE THE PATIENT WAS BROUGHT TO THE PROCEDURE ROOM AND PLACED IN THE SITTING POSITION. THE AREA WAS CLEANED WITH ALCOHOL. THE PROCEDURE WAS DONE USING ASEPTIC STERILE TECHNIQUE. I CHECKED LATERALITY AND THE LEVEL WHERE THE PROCEDURE WAS GOING TO BE PERFORMED WITH THE PATIENT AND THE SUPPORTING STAFF AT THE MOMENT OF THE TIME OUT IN THE PROCEDURE ROOM. USING A 25-GAUGE NEEDLE, TRIGGER POINTS WERE INJECTED AT THE RIGHT AND LEFT LOW BACK AREA WITH A TOTAL OF 40 ML OF BUPIVACAINE 0.25% AND KENALOG 40 MG. THERE WAS NO EVIDENCE OF BLOOD, PARESTHESIA OR CEREBROSPINAL FLUID DURING THE PROCEDURE. THE PATIENT WAS SENT TO THE RECOVERY ROOM. THE PATIENT WAS MOVING THE EXTREMITIES AND DOING WELL. THERE WAS NO COMPLICATION DURING THE PROCEDURE POST PROCEDURE NOTE THE PATIENT WILL BE SEEN IN A FOLLOW UP IN THE NEXT FEW WEEKS. INSTRUCTIONS WERE GIVEN, QUESTIONS WERE ANSWERED, AND THE PATIENT EXPRESSED UNDERSTANDING AND AGREES WITH THE PLAN. I, TANIKA CORRIGAN, DOCUMENTED THE ABOVE INFORMATION ACTING A SCRIBE FOR DR. CORTEZ. I HAVE REVIEWED THE ABOVE DOCUMENT, WRITTEN BY TANIKA BLUMIBKen AND I VERIFY THAT IT IS ACCURATE. PROCEDURE CODES 44193 INJ TRIGGER POINT / MUSCL DISPOSITION & COMMUNICATION FOLLOW UP 3 WEEKS ELECTRONICALLY SIGNED BY JOSE CORTEZ MD, MD ON 07/22/2018 AT 06:44 AM EDT DISCLAIMER : THIS IS A VISIT SUMMARY EXTRACTED FROM THE [employer] CHART. IT IS NOT A COPY OF THE [employer] PROGRESS NOTE. [email or web address]
== END ==
LOC: M PAIN 09:45
PROVIDERS: ATTEND Anesthesiology
DX: M79.18 Myalgia, other site (principal); M54.5 Low back pain; E11.9 Type 2 diabetes mellitus without complications; J44.9 Chronic obstructive pulmonary disease, unspecified; K21.9 Gastro-esophageal reflux disease without esophagitis; M19.90 Unspecified osteoarthritis, unspecified site; E78.5 Hyperlipidemia, unspecified; I10 Essential (primary) hypertension; M06.9 Rheumatoid arthritis, unspecified; G47.33 Obstructive sleep apnea (adult) (pediatric); F17.210 Nicotine dependence, cigarettes, uncomplicated; Z79.51 Long term (current) use of inhaled steroids; Z79.82 Long term (current) use of aspirin; Z79.4 Long term (current) use of insulin; Z79.891 Long term (current) use of opiate analgesic; Z79.899 Other long term (current) drug therapy; Z96.652 Presence of left artificial knee joint
CPT/HCPCS: 20552; J3301

== ENCOUNTER → 2018-07-12 | Outpatient (REF) | payer MEDICARE, MEDICAID ==
[~2018-07-12] MED LIST changes: -BUPIVACAINE HCL 0.25% 10 ML VIAL As Ordered ONE; -BUPIVACAINE HCL 0.25% 30 ML VIAL As Ordered ONE; -DULO1CAP2 PO; +DULO1CAP5 PO; -OMEP20CA3 PO; +OMEP20CA4 PO; -TRIAMCINOLONE ACETONIDE SUSP 40 MG/ML VIAL (J3301) As Ordered ONE
== END ==
LOC: M SFHCLERA 10:06
PROVIDERS: ATTEND Nurse Practitioner Family
DX: R39.9 Unspecified symptoms and signs involving the genitourinary system (principal)
CPT/HCPCS: 81002; 87088; 87186; G0463

== ENCOUNTER → 2018-07-16 | Outpatient (REF) | payer MEDICARE, MEDICAID ==
[~2018-07-16] MED LIST changes: +DULO1CAP2 PO; -DULO1CAP5 PO; +OMEP20CA3 PO; -OMEP20CA4 PO
[2018-07-16 12:34] LABS: BLOOD UREA NITROGEN 17 MG/DL (7-18); CALCIUM LEVEL 8.7 MG/DL (8.5-10.1); CARBON DIOXIDE LEVEL 29 MEQ/L (21-32); CHLORIDE LEVEL 99 MEQ/L (98-107); CHOLESTEROL LEVEL 150 MG/DL (<200); CHOLESTEROL RISK RATIO 3.191 (<5); CREATININE FOR GFR 0.93 MG/DL (0.55-1.30); GLOMERULAR FILTRATION RATE > 60.0 (>51); GLUCOSE, FASTING 246 MG/DL (70-100); HDL CHOLESTEROL 47 MG/DL (>40); LDL CHOLESTEROL 59 MG/DL (<100); NON-HDL-C 103 MG/DL; POTASSIUM SERUM 4.8 MEQ/L (3.5-5.1); SODIUM LEVEL 133 MEQ/L (136-145); TRIGLYCERIDES LEVEL 220 MG/DL (<150)
[2018-07-16 21:59] LABS: HEMOGLOBIN A1c 8.1 %
== END ==
LOC: M SFHCLERA 09:15
PROVIDERS: ATTEND Family Medicine
DX: E11.65 Type 2 diabetes mellitus with hyperglycemia (principal); E78.5 Hyperlipidemia, unspecified; I10 Essential (primary) hypertension
CPT/HCPCS: 80048; 80061; 83036; 90471; 90732; G0463

== ENCOUNTER → 2018-07-31 | Outpatient (REF) | payer MEDICARE, MEDICAID ==
[2018-07-31 20:49] LABS: CALCIUM LEVEL 8.5 MG/DL (8.5-10.1); CREATININE FOR GFR 1.16 MG/DL (0.55-1.30); GLOMERULAR FILTRATION RATE 50.9 (>51); MAGNESIUM LEVEL 1.8 MG/DL (1.8-2.4); POTASSIUM SERUM 4.9 MEQ/L (3.5-5.1); THYROID STIMULATING HORMONE 6.04 uIU/ML (0.358-3.740)
[2018-07-31 20:53] LABS: BASO # 0.1 10^3/uL (0.0-0.2); BASO % 0.6 % (0.0-1.0); EOS # 0.2 10^3/uL (0.0-0.50); EOS % 1.6 % (0.0-3.0); HEMATOCRIT 41.9 % (36.0-47.0); HEMOGLOBIN 13.3 g/dl (12.0-15.5); LYMPH # 2.2 10^3/uL (1.5-4.5); MEAN CORPUSCULAR HEMOGLOBIN 26.8 pg (27.0-33.0); MEAN CORPUSCULAR HGB CONC 31.7 g/dl (32.0-36.5); MEAN CORPUSCULAR VOLUME 84.5 fl (80.0-96.0); MONO # 0.4 10^3/uL (0.0-0.8); MONO % 4.2 % (0.0-5.0); NEUTROPHILS # 7.4 10^3/uL (1.8-7.7); NEUTROPHILS % 72.3 % (36.0-66.0); PLATELET COUNT, AUTOMATED 280 10^3/uL (150-450); RED BLOOD COUNT 4.96 10^6/uL (4.00-5.40); WHITE BLOOD COUNT 10.3 10^3/uL (4.0-10.0)
== END ==
LOC: M SFHCLERA 16:43
PROVIDERS: ATTEND Family Medicine
DX: I10 Essential (primary) hypertension (principal); E87.1 Hypo-osmolality and hyponatremia

== ENCOUNTER → 2018-08-07 | Outpatient (REF) | payer MEDICARE, MEDICAID ==
[2018-08-07 12:16] LABS: FREE T4 0.84 NG/DL (0.76-1.46); THYROID STIMULATING HORMONE 3.53 uIU/ML (0.358-3.740)
== END ==
LOC: M SFHCLERA 08:43
PROVIDERS: ATTEND Family Medicine
DX: R79.89 Other specified abnormal findings of blood chemistry (principal)

== ENCOUNTER → 2018-08-14 | Outpatient (REF) | payer MEDICARE, MEDICAID | LOC: M SFHCLERA 12:39 | PROVIDERS: ATTEND Family Medicine | DX: R30.0 Dysuria (principal) | CPT/HCPCS: 81002; 87088; 87186; G0463 ==

== ENCOUNTER → 2018-08-20 | Outpatient (REF) | payer MEDICARE, MEDICAID | LOC: M SFHCLERA 11:38 | PROVIDERS: ATTEND Family Medicine | DX: R07.2 Precordial pain (principal) ==

== ENCOUNTER → 2018-08-27 | Outpatient (CLI) | payer OTHER, MEDICAID, MEDICARE ==
[~2018-08-27] MED LIST changes: -DULO1CAP2 PO; +DULO1CAP5 PO; -OMEP20CA3 PO; +OMEP20CA4 PO
--- NOTE | 2018-09-07 01:22 | ECWPNPC ---
PATIENT NAME: ESTHER MAE : 1960 GENDER: FEMALE VISIT DATE: 08/27/2018 DISCHARGE DATE: 08/27/18 1123 VISIT LOCKED DATE TIME: PHYSICIAN: JOSE CORTEZ MD RESOURCE: JOSE CORTEZ MD REASON FOR APPOINTMENT 1. WC LT KNEE/LT SHOULDER HISTORY OF PRESENT ILLNESS HISTORY OF PRESENT ILLNESS: PAIN THE PATIENT DESCRIBES THE PAIN... 58 YEAR OLD FEMALE PATIENT WITH A HISTORY OF CHRONIC LEFT SHOULDER AND LEFT KNEE PAIN. THE PATIENT DESCRIBES THE PAIN STABBING, SHOOTING, ACHING, AND CONTINUOUS WITH A PAIN SCORE OF 6-10/10 DEPENDING ON PHYSICAL ACTIVITY. 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 THE PATIENT SAYS THE PAIN IS SEVERE AND CONTINUE TO PERSISTS IN BOTH AREAS. THE PATIENT SAYS THE PAIN IS AFFECTING HER ABILITY TO PERFORM HER DAILY ACTIVITIES. THE PATIENT SAYS SHE CAN NO LONGER DO HOUSEWORK SUCH SWEEPING, VACUUMING, AND CLEANING THE BATHROOM AND THAT SHE HAD TO HIRE A MAINTENANCE MECHANIC SUPERVISOR TO TAKE CARE OF HER HOME TASKS. THE PATIENT STATES SHE IS CURRENTLY USING INDOMETHACIN, UP TO 3 TABLETS DAILY OF MORPHINE 15 MG ER, AND LYRICA TO HELP MANAGE HER PAIN. THE PATIENT SAYS SHE WAS USING OXYCODONE IN THE PAST THAT WAS HELPING FOR HER AND THAT THE MORPHINE IS MAKING NO DIFFERENCE FOR HER PAIN RELIEF. PATIENT DENIES UNEXPLAINABLE WEIGHT LOSS, FEVER, CHILLS, NEW CHANGES ON HER URINARY OR BOWEL CONTROL. FALL RISK SCREENING: SCREENING :NO FALLS REPORTED IN THE LAST YEAR CURRENT MEDICATIONS TAKING PRAVASTATIN SODIUM 80 MG TABLET 1 TABLET ORALLY ONCE A DAY TAKING DEBROX 6.5 % SOLUTION 5 DROPS INTO LEFT AND RIGHT EARS OTIC TWICE A DAY TAKING IRON 28 MG TABLET 1 TABLET ORALLY ONCE A DAY TAKING INCRUSE ELLIPTA 62.5 MCG/INH AEROSOL POWDER BREATH ACTIVATED 1 PUFF INHALATION ONCE A DAY TAKING IPRATROPIUM-ALBUTEROL 0.5-2.5 (3) MG/3ML SOLUTION 3 ML INHALATION EVERY 4 HRS TAKING PROAIR HFA 108 (90 BASE) MCG/ACT AEROSOL SOLUTION 2 PUFFS NEEDED INHALATION EVERY 6 HRS TAKING CETIRIZINE HCL 10 MG TABLET 1 TABLET ORALLY ONCE A DAY TAKING ENBREL SURECLICK 50 MG/ML SOLUTION AUTO-INJECTOR 1 ML SUBCUTANEOUS TAKING ASPIR-81 81 MG TABLET DELAYED RELEASE 1 TABLET ORALLY ONCE A DAY TAKING LYRICA 200 MG CAPSULE 1 CAPSULE ORALLY TWICE A DAY MDD=2 90 DAY SUPPLY, NOTES: WORKERS COMP TAKING MORPHINE SULFATE ER 15 MG TABLET EXTENDED RELEASE 1 TABLET ORALLY EVERY 8 HOURS MDD 3 TAKING EZETIMIBE 10 MG TABLET 1 TABLET ORALLY ONCE A DAY TAKING DULOXETINE HCL 60 MG CAPSULE DELAYED RELEASE PARTICLES 1 CAPSULE ORALLY ONCE A DAY TAKING INDOMETHACIN 50 MG CAPSULE 1 CAPSULE WITH FOOD OR MILK ORALLY TWICE A DAY TAKING CLOTRIMAZOLE 1 % CREAM 1 APPLICATION TO AFFECTED AREA OF LEFT FOOT EXTERNALLY TWICE A DAY TAKING ROPINIROLE HCL 0.5 MG TABLET 2 TAB ORALLY AT BEDTIME TAKING MISC. DEVICES - MISCELLANEOUS BP CUFF, CHECK ONCE A DAY, DX: I10. TAKING SPIRONOLACTONE 25 MG TABLET 1 TABLET ORALLY ONCE A DAY TAKING KEFLEX 500 MG CAPSULE 1 CAPSULE ORALLY EVERY 12 HRS TAKING PANTOPRAZOLE SODIUM 40 MG TABLET DELAYED RELEASE 1 TABLET ORALLY ONCE A DAY TAKING METFORMIN HCL 1000 MG TABLET 1 TAB(S) ORALLY BID TAKING BYDUREON 2 MG PEN-INJECTOR 1 INJECTION SUBCUTANEOUS WEEKLY TAKING LEVEMIR 100 UNIT/ML SOLUTION 20U SUBCUTANEOUS BEFORE BEDTIME TAKING NOVOLOG 100 UNIT/ML SOLUTION DIRECTED E11.9 SUBCUTANEOUS TID CC, NOTES: SLIDING SCALE: <=150: 0; 151-200: 3; 201-250: 6; 251-300: 9; 301-350: 12; 351-400: 15; MORE THAN 400: CALL ELECTROSTATIC PAINT OPERATOR PHYSICIAN TAKING METOPROLOL TARTRATE 25 MG TABLET 1 TABLET WITH FOOD ORALLY TWICE A DAY NOT-TAKING LOSARTAN POTASSIUM-HCTZ 50-12.5 MG TABLET 1 TABLET ORALLY ONCE A DAY NOT-TAKING CHANTIX CONTINUING MONTH JOJO 1 MG TABLET 1 TABLET ORALLY TWICE A DAY, NOTES: 07/10 PM NOT-TAKING MACROBID 100 MG CAPSULE 1 CAPSULE WITH FOOD ORALLY EVERY 12 HRS NOT-TAKING POLYTRIM 14812-7.1 UNIT/ML SOLUTION 1 DROP INTO RIGHT EYE OPHTHALMIC FOUR TIMES A DAY NOT-TAKING TRIAMCINOLONE ACETONIDE 0.1 % CREAM 1 APPLICATION TO AFFECTED AREA EXTERNALLY TWICE A DAY MEDICATION LIST REVIEWED AND RECONCILED WITH THE PATIENT PAST MEDICAL HISTORY DM, A1C WAS 6.5 ON BYDUREON AND 72U/D OF LANTUS, PREVIOUSLY WAS HIGH 13. CHRONIC LUNG DISEASE, FOLLOWS WITH DR. WARREN LAST SEEN JULY 2017 GERD, HAS NEVER SEEN A GI DOCTOR, DENIES HAVING HAD ESOPHAGOGASTRODUODENOSCOPY. ARTHRITIS BACK PAIN/NECK PAIN, CHRONIC SHOULDER PAIN AND CHRONIC LEG PAIN FOR WHICH SHE IS ON PERCOCET X 4 YEARS HYPERLIPIDEMIA HYPERTENSION, DENIES HISTORY OF HEART FAILURE, S/P HEART CATH REPORTEDLY NEG 2006, HAS HISTORY OF "SILENT HEART ATTACK" SO FOLLOWS DR. SHETH WHO DID STRESS JULY 2017, SHE GETS RLS FIBROMYALGIA RA, FOLLOWS WITH RHEUMATOLOGY PA IN [facility], PREVIOUSLY ENBREL BEFORE LOSING INSURANCE, LAST SEEN AUGUST 2017 PNEUMONIA OBESITY, LOST 100 POUNDS INTENTIONALLY WITHOUT WEIGHT LOSS SURGERY ANEMIA: UNCERTAIN CAUSE, DIAGNOSIS BY CARDIOLOGY, ON IRON OBSTRUCTIVE SLEEP APNEA, DR. WARREN, USES BIPAP EVERY NIGHT CORONARY ARTERY DISEASE ALLERGIES SEASONAL: RED, ITCHY EYES, HEADACHE, NASAL CONGESTION - ALLERGY SURGICAL HISTORY L KNEE REPLACEMENT 2013 CHOLECYSTECTOMY LEFT SHOULDER REPAIR NOVASHORE CARDIAC CATHETERIZATION 06/2018 FAMILY HISTORY FATHER: , RHEUMATOID, DIAGNOSED WITH DIABETES, HYPERTENSION, HEART DISEASE, STROKE MOTHER: , RHEUMATOID, HYPERTENSION, HEART DISEASE, CANCER MATERNAL GRAND MOTHER: RHEUMATOID 2 SISTER(S) - HEALTHY. 1 SON(S) - HEALTHY. MOTHER: LUNG CA\\\\\\\\\\\\\\\\NOLDER SISTER()- CHF, HEART DISEASE\\\\\\\\\\\\\\\\N. SOCIAL HISTORY GENERAL: TOBACCO USE ARE YOU A:CURRENT SMOKER ARE YOU INTERESTED IN QUITTING?NOT READY TO QUIT QUIT HER CHANTIX COUNSELED THE PATIENT ON SMOKING EFFECTS, EDUCATION [id number]/01/2019 HOW MANY CIGARETTES A DAY DO YOU SMOKE?11-20 HOW SOON AFTER YOU WAKE UP DO YOU SMOKE YOUR FIRST CIGARETTE?6-30 MIN HOW OFTEN DO YOU SMOKE CIGARETTES?EVERY DAY PATIENT COUNSELED ON THE DANGERS OF TOBACCO USE AND URGED TO QUIT:08/27/2018 SMOKING CESSATION INFORMATION GIVEN08/14/2018 HIV / HEP-C SCREENING HIV TEST OFFERED TO PATIENT:YES DATE OFFERED:05/16/2018 TEST ACCEPTED:NO HEP-C TEST OFFERED TO PATIENT:NO REASON:PATIENT DECLINED BROCHURE PROVIDED TO PATIENTYES OTHERS AT HOME: NONE. EDUCATION LEVEL OF EDUCATION:HIGH SCHOOL DIET: REGULAR. LANGUAGE LANGUAGES SPOKEN:LUXEMBOURGISH DOMESTIC VIOLENCE DO YOU FEEL SAFE IN YOUR ENVIRONMENT?YES BMI CARE GOAL FOLLOW-UP ABOVE NORMAL BMI FOLLOW-UPDIETARY MANAGEMENT EDUCATION, GUIDANCE, AND COUNSELING RECREATIONAL DRUG USE DRUG USE?NO EXERCISE: NO REGULAR EXERCISE. LEARNING BARRIERS / SPECIAL NEEDS CHANGE FROM LAST VISIT?NO BARRIERS TO LEARNING?NO HEARING IMPAIRED?NO VISION IMPAIRED?NO COGNITIVELY IMPAIRED?NO READINESS TO LEARN?YES LEARNING PREFERENCES?NO LEARNING CAPABILITIES PRESENT?YES EMOTIONAL BARRIERS?NO SPECIAL DEVICES?YES :OTHER BIPAP CLIENT RELATIONSHIP MANAGER NEEDED?NO PAIN CLINIC PFS, CLERGY, PUBLIC HEALTH REFERRALS PFS REFERRAL NEEDED?NO CLERGY REFERRAL NEEDED?NO PUBLIC HEALTH REFERRAL NEEDED?NO WAS THE PROVIDER NOTIFIED OF ANY PERTINENT INFO?YES HAS THE PATIENT BEEN EDUCATED REGARDING HIS/HER PLAN OF CARE?YES HAS THE PATIENT BEEN EDUCATED REGARDING PAIN, THE RISK FOR PAIN, THE IMPORTANCE OF EFFECTIVE PAIN MANAGEMENT, AND THE PAIN ASSESSMENT PROCESS?YES LATEX QUESTIONNAIRE LATEX ALLERGY : HAVE YOU EVER DEVELOPED ANY TYPE OF REACTION AFTER HANDLING LATEX PRODUCTS SUCH RUBBER GLOVES, CONDOMS, DIAPHRAGMS, BALLOONS, SOCKS, OR UNDERWEAR?NO LATEX ALLERGY : HAVE YOU EVER DEVELOPED ANY TYPE OF REACTION DURING OR AFTER DENTAL APPOINTMENT, VAGINAL/RECTAL EXAMINATION, SURGICAL PROCEDURE, OR ANY OTHER EXPOSURE?NO LATEX RISK : HAVE YOU EVER HAD ANY DIFFICULTY BREATHING OR HIVES AFTER EATING OR HANDLING ANY FRUITS, OR VEGETABLES; SUCH KIWI, BANANAS, STONE FRUITS, OR CHESTNUTSNO LATEX RISK : DO YOU HAVE A PREVIOUS PERSONAL HISTORY OF MORE THAN NINE SURGERIES, SPINA BIFIDA, OR REPEATED CATHERTIZATIONS? NO LATEX RISK : ARE YOU FREQUENTLY EXPOSED TO LATEX PRODUCTS IN YOUR OCCUPATION?NO DATE ASKED : 07/11/2018 CAFFEINE CAFFEINE USE?YES HOW OFTEN AND HOW MUCH? 2 CUPS COFFEE PER DAY DAILY BASIS ADVANCE DIRECTIVE ADVANCE DIRECTIVE DISCUSSED WITH PATIENT:YES HCP - SONIA BENNETT (SISTER) YARSANI [id number] PRESYBETERIAN MARITAL STATUS: SINGLE. ALCOHOL SCREENING DID YOU HAVE A DRINK CONTAINING ALCOHOL IN THE PAST YEAR?NO POINTS0 INTERPRETATIONNEGATIVE OCCUPATION: UNEMPLOYED. SEXUAL HX HAD SEX IN THE LAST 12 MONTHS (VAGINAL, ORAL, OR ANAL)?NO HAVE YOU EVER HAD AN STD?NO REVIEWED WITH PATIENT 12/25/17 0914 JSREVEIWED WTIH PT 05/29/18 0903 BVREVIEWED WITH PATIENT 08/27/18 1001 JS. HOSPITALIZATION/MAJOR DIAGNOSTIC PROCEDURE SURGICALY RELATED PNEUMONIA-RESP FAILURE ON BIPAP 12/28/15 INFLUENZA/COPD 05/08/18 CHEST PAIN - CARDIAC CATHETERIZATION 06/2018 REVIEW OF SYSTEMS REVIEWED BY: PROVIDER: JOSE CORTEZ MD . CONSTITUTIONAL: ANY CHANGE IN YOUR MEDICAL CONDITION? YES, STATES CORONARY ARTERY DISEASE, CAUSES HER HEART TO RACE . CHILLS NO . FEVER NO . INFECTION: DO YOU HAVE NEW INFECTIONS? YES, STATES UTI, CLEARED UP BUT NOW HAS A YEAST INFECTION FROM THE ANTIBIOTICS . DO YOU HAVE HISTORY OF MRSA? NO . MUSCULOSKELETAL: ANY NEW PATTERNS OF PAIN OR NUMBNESS? NO . GASTROENTEROLOGY: ANY NEW CHANGE IN BOWEL CONTROL? NO . GENITOURINARY: ANY NEW CHANGE IN BLADDER CONTROL? NO . IS THERE A CHANCE YOU COULD BE ? NO . HEMATOLOGY/LYMPH: DO YOU TAKE ANY BLOOD THINNERS? (FOR EXAMPLE- COUMADIN, PLAVIX, AGGRENOX, PLATEL, PRADAXA, OR XARELTO) NO . WHEN WAS YOUR LAST DOSE? DATE: TIME: . NEUROLOGY: HAVE YOU FALLEN IN THE PAST 12 MONTHS? NO . ANY NEW EXTREMITY NUMBNESS OR WEAKNESS? YES, STATES CONSTANT NUMBNESS/TINGLING TO PINKY AND RING FINGERS OF LEFT HAND, STARTED A FEW WEEKS AGO . CARDIOLOGY: DO YOU HAVE A PACEMAKER OR DEFIBRILLATOR? NO . RESPIRATORY: HAVE YOU BEEN SICK IN THE PAST WEEK? NO . FEVER NO . FLU LIKE SYMPTOMS? NO . COUGH NO . INTEGUMENTARY: DO YOU HAVE ANY RASHES OR OPEN SORES? NO . ALLERGIC/IMMUNO: ARE YOU ALLERGIC TO IV DYE? NO . ANY NEW ALLERGIES? NO . PSYCHIATRIC: DO YOU HAVE THOUGHTS OF HURTING YOURSELF OR SOMEONE ELSE? NO . ARE YOU ABUSED, NEGLECTED, OR IN AN UNSAFE ENVIRONMENT? NO . ENDOCRINOLOGY: ARE YOU DIABETIC? YES . OTHER: DO YOU NEED ANY PRESCRIPTIONS? YES . IF YES, PLEASE LIST: MORPHINE . ANY NEW PROBLEMS WITH YOUR MEDICATIONS? NO . WHEN DID YOU LAST EAT? ____ . WHEN DID YOU LAST DRINK? ____ . WHAT DID YOU LAST DRINK? ____ . NAME OF PERSON DRIVING YOU HOME? ____ . DO YOU HAVE ANY OTHER QUESTIONS OR CONCERNS NO . VITAL SIGNS WT 247.2 LBS, HT 66.75 IN, BMI 39.00 INDEX, BP 176/92 MM HG, REPEAT BP 158/92 MANUAL, HR 73 /MIN, RR 18 /MIN, TEMP 96.2 F, OXYGEN SAT % 96%, SAFE IN ENV? (Y/N) YES, NA INITIALS SC 09:40, REVIEWED BY: CHERYL/03/17 1006 DISCUSSED ELEVATED BP WITH PATIENT. STATES THAT SHE FOLLOWS WITH CARDIOLOGY AND THEY STARTED HER ON A NEW BLOOD PRESSURE MEDICATION RECENTLY. JS. EXAMINATION GENERAL EXAMINATION: PATIENT IS ALERT O X 3 AND COOPERATIVE. DIFFICULTY STANDING. PATIENT IS LIMPING FROM RIGHT LEG. PATIENT HAS DIFFICULTY ABDUCTING BOTH ARMS TO SHOULDER LEVEL. TENDERNESS IN LEFT SHOULDER. TENDERNESS OVER LATERAL LEFT KNEE AREAS. SURGICAL SCAR IS PRESENT OVER LEFT KNEE. 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 MAE'S PAIN MANAGEMENT CASE. I AM REFERRING THE PATIENT TO [facility] FOR EVALUATION AND MANAGEMENT. I DISCUSSED WITH THE PATIENT ABOUT THE OPTION OF PERFORMING A COOL RADIOFREQUENCY PROCEDURE IN THE FUTURE. I AM REDUCING THE INDOMETHACIN FROM 60 TO 45 TABLETS FOR THE MONTH TO BE USED NEEDED. I DISCUSSED WITH THE PATIENT ABOUT THE SAFETY AND RISKS OF NSAIDS USE AND IT IS TO BE USED SHORT-TERM AND THE LEAST AMOUNT POSSIBLE IN ORDER TO AVOID GASTRIC, KIDNEY, AND CARDIOVASCULAR ISSUES. THE PATIENT UNDERSTANDS AND AGREES TO USE THE LEAST AMOUNT POSSIBLE. I REFILLED THE INDOMETHACIN AND LYRICA AT TODAY'S VISIT. SINCE THE OXYCODONE HELPED BETTER WITH HER PAIN IN THE PAST AND ALSO COVERED HER ARTHRITIS PAIN WELL, I WILL START THE PATIENT ON OXYCODONE 5-325 MG 85 TABLETS FOR THE MONTH TO REPLACE THE MORPHINE TABLETS. ISTOP _# [id number] WAS REVIEWED. URINE TOXICOLOGY DONE ON 05/29/2018 SHOWS CONCURRENT RESULTS. THE PATIENT WAS ADVISED TO BRING HER MEDICATIONS IN THEIR ORIGINAL BOTTLES TO EVERY VISIT. THE PATIENT WILL FOLLOW UP IN 2 MONTHS WITH [facility]EDERICK NURSE PRACTITIONER. INSTRUCTIONS WERE GIVEN, QUESTIONS WERE ANSWERED, PATIENT REPORTS UNDERSTANDING AND AGREES WITH THE PLAN. I, SURAJ SANCHEZ, DOCUMENTED THE ABOVE INFORMATION ACTING A SCRIBE FOR DR. CORTEZ. I HAVE REVIEWED THE ABOVE DOCUMENT, WRITTEN BY SURAJ BLUMIBKen AND I VERIFY THAT IT IS ACCURATE. . LUMBAR DISC DISPLACEMENT WITHOUT MYELOPATHY REFILL INDOMETHACIN CAPSULE, 50 MG, 1 CAPSULE WITH FOOD OR MILK, ORALLY NEEDED FOR PAIN, TWICE A DAY, 30 DAY(S), 45, REFILLS 1 OTHERS START OXYCODONE-ACETAMINOPHEN TABLET, 5-325 MG, 1 TABLET NEEDED, ORALLY FOR PAIN, EVERY 8 HRS MDD3, 30 DAYS, 85, REFILLS 0 PROCEDURES PN WORKMANS' COMP OPINION IN YOUR OPINION, WAS THE INCIDENT THAT THE PATIENT DESCRIBED THE COMPETENT MEDICAL CAUSE OF THIS INJURY/ILLNESS? YES ARE THE PATIENT'S COMPLAINTS CONSISTENT WITH HIS/HER HISTORY OF THE INJURY/ILLNESS? YES IS THE PATIENT'S HISTORY OF THE INJURY/ILLNESS CONSISTENT WITH YOUR OBJECTIVE FINDING? YES WHAT IS THE PERCENTAGE OF TEMPORARY IMPAIRMENT? TOTAL = 100% IS THE PATIENT WORKING? 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 IT IS NOT A COPY OF THE [facility] [employer] PROGRESS NOTE. PRETTY
== END ==
LOC: M PAIN 10:00
PROVIDERS: ATTEND Anesthesiology
DX: G89.29 Other chronic pain (principal); M51.16 Intervertebral disc disorders with radiculopathy, lumbar region; M51.26 Other intervertebral disc displacement, lumbar region; M79.2 Neuralgia and neuritis, unspecified; M25.562 Pain in left knee; M75.82 Other shoulder lesions, left shoulder; M25.512 Pain in left shoulder; E11.9 Type 2 diabetes mellitus without complications; K21.9 Gastro-esophageal reflux disease without esophagitis; J98.4 Other disorders of lung; E78.5 Hyperlipidemia, unspecified; I10 Essential (primary) hypertension; G25.81 Restless legs syndrome; M06.9 Rheumatoid arthritis, unspecified; J30.2 Other seasonal allergic rhinitis; E66.9 Obesity, unspecified; D64.9 Anemia, unspecified; G47.33 Obstructive sleep apnea (adult) (pediatric); I25.10 Atherosclerotic heart disease of native coronary artery without angina pectoris; F17.210 Nicotine dependence, cigarettes, uncomplicated; Z96.652 Presence of left artificial knee joint; Z68.39 Body mass index [BMI] 39.0-39.9, adult; Z79.82 Long term (current) use of aspirin; Z79.891 Long term (current) use of opiate analgesic; Z79.4 Long term (current) use of insulin; Z79.899 Other long term (current) drug therapy

== ENCOUNTER → 2018-09-05 | Outpatient (CLI) | payer MEDICARE, MEDICAID ==
--- NOTE | 2018-09-10 23:59 | ECWPNPC ---
PATIENT NAME: ESTHER MAE : 1960 GENDER: FEMALE VISIT DATE: 09/05/2018 DISCHARGE DATE: 09/05/18 1025 VISIT LOCKED DATE TIME: PHYSICIAN: FREDERICK MILES RESOURCE: FREDERICK MILES REASON FOR APPOINTMENT 1. NON COMP POST PROC HISTORY OF PRESENT ILLNESS HISTORY OF PRESENT ILLNESS: PAIN THE PATIENT DESCRIBES THE PAIN... 58 YEAR OLD FEMALE IN FOR POST PROCEDURAL FOLLOW UP. IN JUNE SHE HAD TPI PERFORMED AND STATES THAT THE PROCEDURE HELPED FOR ABOUT AN HOUR AND THEN HER PAIN RETURNED. SHE CURRENTLY RATES HER PAIN AT A 10/10. SHE DOES ADMIT THAT SHE WILL BE FOLLOWING UP WITH [facility]. SHE FEELS THE MEDICATIONS HAVE NOT BEEN HELPFUL AND HAS REQUESTED AN INCREASE IN HER LYRICA. SHE DENIES MED SIDE EFFECTS CURRENTLY. FALL RISK SCREENING: SCREENING :NO FALLS REPORTED IN THE LAST YEAR CURRENT MEDICATIONS TAKING OXYCODONE-ACETAMINOPHEN 5-325 MG TABLET 1 TABLET NEEDED ORALLY FOR PAIN EVERY 8 HRS MDD3 TAKING LYRICA 200 MG CAPSULE 1 CAPSULE ORALLY TWICE A DAY MDD=2 90 DAY SUPPLY, NOTES: WORKERS COMP TAKING INDOMETHACIN 50 MG CAPSULE 1 CAPSULE WITH FOOD OR MILK ORALLY NEEDED FOR PAIN TWICE A DAY TAKING PRAVASTATIN SODIUM 80 MG TABLET 1 TABLET ORALLY ONCE A DAY TAKING DEBROX 6.5 % SOLUTION 5 DROPS INTO LEFT AND RIGHT EARS OTIC TWICE A DAY TAKING IRON 28 MG TABLET 1 TABLET ORALLY ONCE A DAY TAKING INCRUSE ELLIPTA 62.5 MCG/INH AEROSOL POWDER BREATH ACTIVATED 1 PUFF INHALATION ONCE A DAY TAKING IPRATROPIUM-ALBUTEROL 0.5-2.5 (3) MG/3ML SOLUTION 3 ML INHALATION EVERY 4 HRS TAKING PROAIR HFA 108 (90 BASE) MCG/ACT AEROSOL SOLUTION 2 PUFFS NEEDED INHALATION EVERY 6 HRS TAKING CETIRIZINE HCL 10 MG TABLET 1 TABLET ORALLY ONCE A DAY TAKING ASPIR-81 81 MG TABLET DELAYED RELEASE 1 TABLET ORALLY ONCE A DAY TAKING EZETIMIBE 10 MG TABLET 1 TABLET ORALLY ONCE A DAY TAKING DULOXETINE HCL 60 MG CAPSULE DELAYED RELEASE PARTICLES 1 CAPSULE ORALLY ONCE A DAY TAKING CLOTRIMAZOLE 1 % CREAM 1 APPLICATION TO AFFECTED AREA OF LEFT FOOT EXTERNALLY TWICE A DAY TAKING ROPINIROLE HCL 0.5 MG TABLET 2 TAB ORALLY AT BEDTIME TAKING MISC. DEVICES - MISCELLANEOUS BP CUFF, CHECK ONCE A DAY, DX: I10. TAKING SPIRONOLACTONE 25 MG TABLET 1 TABLET ORALLY ONCE A DAY TAKING PANTOPRAZOLE SODIUM 40 MG TABLET DELAYED RELEASE 1 TABLET ORALLY ONCE A DAY TAKING METFORMIN HCL 1000 MG TABLET 1 TAB(S) ORALLY BID TAKING BYDUREON 2 MG PEN-INJECTOR 1 INJECTION SUBCUTANEOUS WEEKLY TAKING LEVEMIR 100 UNIT/ML SOLUTION 20U SUBCUTANEOUS BEFORE BEDTIME TAKING NOVOLOG 100 UNIT/ML SOLUTION DIRECTED E11.9 SUBCUTANEOUS TID CC, NOTES: SLIDING SCALE: <=150: 0; 151-200: 3; 201-250: 6; 251-300: 9; 301-350: 12; 351-400: 15; MORE THAN 400: CALL SHOESHINER PHYSICIAN TAKING METOPROLOL TARTRATE 25 MG TABLET 1 TABLET WITH FOOD ORALLY TWICE A DAY TAKING MACROBID 100 MG CAPSULE 1 CAPSULE WITH FOOD ORALLY EVERY 12 HRS TAKING TRIAMCINOLONE ACETONIDE 0.1 % CREAM 1 APPLICATION TO AFFECTED AREA EXTERNALLY TWICE A DAY NOT-TAKING ENBREL SURECLICK 50 MG/ML SOLUTION AUTO-INJECTOR 1 ML SUBCUTANEOUS NOT-TAKING KEFLEX 500 MG CAPSULE 1 CAPSULE ORALLY EVERY 12 HRS NOT-TAKING LOSARTAN POTASSIUM-HCTZ 50-12.5 MG TABLET 1 TABLET ORALLY ONCE A DAY NOT-TAKING CHANTIX CONTINUING MONTH JOJO 1 MG TABLET 1 TABLET ORALLY TWICE A DAY, NOTES: 5 PM NOT-TAKING POLYTRIM 55672-6.1 UNIT/ML SOLUTION 1 DROP INTO RIGHT EYE OPHTHALMIC FOUR TIMES A DAY MEDICATION LIST REVIEWED AND RECONCILED WITH THE PATIENT PAST MEDICAL HISTORY DM, A1C WAS 6.5 ON BYDUREON AND 72U/D OF LANTUS, PREVIOUSLY WAS HIGH 13. CHRONIC LUNG DISEASE, FOLLOWS WITH DR. WARREN LAST SEEN JULY 2017 GERD, HAS NEVER SEEN A GI DOCTOR, DENIES HAVING HAD ESOPHAGOGASTRODUODENOSCOPY. ARTHRITIS BACK PAIN/NECK PAIN, CHRONIC SHOULDER PAIN AND CHRONIC LEG PAIN FOR WHICH SHE IS ON PERCOCET X 4 YEARS HYPERLIPIDEMIA HYPERTENSION, DENIES HISTORY OF HEART FAILURE, S/P HEART CATH REPORTEDLY NEG 2006, HAS HISTORY OF "SILENT HEART ATTACK" SO FOLLOWS DR. SHETH WHO DID STRESS JULY 2017, SHE GETS RLS FIBROMYALGIA RA, FOLLOWS WITH RHEUMATOLOGY PA IN [facility], PREVIOUSLY ENBREL BEFORE LOSING INSURANCE, LAST SEEN AUGUST 2017 PNEUMONIA OBESITY, LOST 100 POUNDS INTENTIONALLY WITHOUT WEIGHT LOSS SURGERY ANEMIA: UNCERTAIN CAUSE, DIAGNOSIS BY CARDIOLOGY, ON IRON OBSTRUCTIVE SLEEP APNEA, DR. WARREN, USES BIPAP EVERY NIGHT CORONARY ARTERY DISEASE-RACING HEART, SEE DR SHETH ALLERGIES SEASONAL: RED, ITCHY EYES, HEADACHE, NASAL CONGESTION - ALLERGY SURGICAL HISTORY L KNEE REPLACEMENT 2013 CHOLECYSTECTOMY [facility] 06/2018 FAMILY HISTORY FATHER: , RHEUMATOID, DIAGNOSED WITH DIABETES, HYPERTENSION, HEART DISEASE, STROKE MOTHER: , RHEUMATOID, HYPERTENSION, HEART DISEASE, CANCER MATERNAL GRAND MOTHER: RHEUMATOID 2 SISTER(S) - HEALTHY. 1 SON(S) - HEALTHY. MOTHER: LUNG CA\\\\\\\\\\\\\\\\NOLDER SISTER()- CHF, HEART DISEASE\\\\\\\\\\\\\\\\N. SOCIAL HISTORY GENERAL: TOBACCO USE ARE YOU A:CURRENT SMOKER ARE YOU INTERESTED IN QUITTING?NOT READY TO QUIT QUIT HER ELISEX COUNSELED THE PATIENT ON SMOKING EFFECTS, EDUCATION [id number]/10/2019 HOW MANY CIGARETTES A DAY DO YOU SMOKE?11-20 HOW SOON AFTER YOU WAKE UP DO YOU SMOKE YOUR FIRST CIGARETTE?6-30 MIN HOW OFTEN DO YOU SMOKE CIGARETTES?EVERY DAY PATIENT COUNSELED ON THE DANGERS OF TOBACCO USE AND URGED TO QUIT:08/27/2018 SMOKING CESSATION INFORMATION GIVEN08/14/2018 HIV / HEP-C SCREENING HIV TEST OFFERED TO PATIENT:YES DATE OFFERED:05/16/2018 TEST ACCEPTED:NO HEP-C TEST OFFERED TO PATIENT:NO REASON:PATIENT DECLINED BROCHURE PROVIDED TO PATIENTYES OTHERS AT HOME: NONE. EDUCATION LEVEL OF EDUCATION:HIGH SCHOOL DIET: REGULAR. LANGUAGE LANGUAGES SPOKEN:EQUATORIAL GUINEAN DOMESTIC VIOLENCE DO YOU FEEL SAFE IN YOUR ENVIRONMENT?YES BMI CARE GOAL FOLLOW-UP ABOVE NORMAL BMI FOLLOW-UPDIETARY MANAGEMENT EDUCATION, GUIDANCE, AND COUNSELING RECREATIONAL DRUG USE DRUG USE?NO EXERCISE: NO REGULAR EXERCISE. LEARNING BARRIERS / SPECIAL NEEDS CHANGE FROM LAST VISIT?NO BARRIERS TO LEARNING?NO HEARING IMPAIRED?NO VISION IMPAIRED?NO COGNITIVELY IMPAIRED?NO READINESS TO LEARN?YES LEARNING PREFERENCES?NO LEARNING CAPABILITIES PRESENT?YES EMOTIONAL BARRIERS?NO SPECIAL DEVICES?YES :OTHER BIPAP IT DISASTER RECOVERY MANAGER NEEDED?NO PAIN CLINIC PFS, CLERGY, PUBLIC HEALTH REFERRALS PFS REFERRAL NEEDED?NO CLERGY REFERRAL NEEDED?NO PUBLIC HEALTH REFERRAL NEEDED?NO WAS THE PROVIDER NOTIFIED OF ANY PERTINENT INFO?YES HAS THE PATIENT BEEN EDUCATED REGARDING HIS/HER PLAN OF CARE?YES HAS THE PATIENT BEEN EDUCATED REGARDING PAIN, THE RISK FOR PAIN, THE IMPORTANCE OF EFFECTIVE PAIN MANAGEMENT, AND THE PAIN ASSESSMENT PROCESS?YES LATEX QUESTIONNAIRE LATEX ALLERGY : HAVE YOU EVER DEVELOPED ANY TYPE OF REACTION AFTER HANDLING LATEX PRODUCTS SUCH RUBBER GLOVES, CONDOMS, DIAPHRAGMS, BALLOONS, SOCKS, OR UNDERWEAR?NO LATEX ALLERGY : HAVE YOU EVER DEVELOPED ANY TYPE OF REACTION DURING OR AFTER DENTAL APPOINTMENT, VAGINAL/RECTAL EXAMINATION, SURGICAL PROCEDURE, OR ANY OTHER EXPOSURE?NO DATE ASKED : 09/04/2018 LATEX RISK : HAVE YOU EVER HAD ANY DIFFICULTY BREATHING OR HIVES AFTER EATING OR HANDLING ANY FRUITS, OR VEGETABLES; SUCH KIWI, BANANAS, STONE FRUITS, OR CHESTNUTSNO LATEX RISK : DO YOU HAVE A PREVIOUS PERSONAL HISTORY OF MORE THAN NINE SURGERIES, SPINA BIFIDA, OR REPEATED CATHERTIZATIONS? NO LATEX RISK : ARE YOU FREQUENTLY EXPOSED TO LATEX PRODUCTS IN YOUR OCCUPATION?NO CAFFEINE CAFFEINE USE?YES HOW OFTEN AND HOW MUCH? 2 CUPS COFFEE PER DAY DAILY BASIS ADVANCE DIRECTIVE ADVANCE DIRECTIVE DISCUSSED WITH PATIENT:YES HCP - SONIA BENNETT (SISTER) [phone] TAOISM [id number] SABIANISM MARITAL STATUS: SINGLE. ALCOHOL SCREENING DID YOU HAVE A DRINK CONTAINING ALCOHOL IN THE PAST YEAR?NO POINTS0 INTERPRETATIONNEGATIVE OCCUPATION: UNEMPLOYED. SEXUAL HX HAD SEX IN THE LAST 12 MONTHS (VAGINAL, ORAL, OR ANAL)?NO HAVE YOU EVER HAD AN STD?NO REVIEWED WITH PATIENT 12/25/17 0914 JSREVEIWED WTIH PT 05/29/18 0903 BVREVIEWED WITH PATIENT 08/27/18 1001 JS. HOSPITALIZATION/MAJOR DIAGNOSTIC PROCEDURE SURGICALY RELATED PNEUMONIA-RESP FAILURE ON BIPAP 12/28/15 INFLUENZA/COPD 05/08/18 CHEST PAIN - CARDIAC CATHETERIZATION 06/2018 REVIEW OF SYSTEMS REVIEWED BY: PROVIDER: TRINIDAD MOLINA . CONSTITUTIONAL: ANY CHANGE IN YOUR MEDICAL CONDITION? YES- RACING HEART RATE- FOLLOWING WITH DR SHETH . CHILLS NO . FEVER NO . INFECTION: DO YOU HAVE NEW INFECTIONS? NO . DO YOU HAVE HISTORY OF MRSA? NO . MUSCULOSKELETAL: ANY NEW PATTERNS OF PAIN OR NUMBNESS? NO . GASTROENTEROLOGY: ANY NEW CHANGE IN BOWEL CONTROL? NO . GENITOURINARY: ANY NEW CHANGE IN BLADDER CONTROL? NO . IS THERE A CHANCE YOU COULD BE ? NO . HEMATOLOGY/LYMPH: DO YOU TAKE ANY BLOOD THINNERS? (FOR EXAMPLE- COUMADIN, PLAVIX, AGGRENOX, PLATEL, PRADAXA, OR XARELTO) NO . WHEN WAS YOUR LAST DOSE? DATE: TIME: . NEUROLOGY: HAVE YOU FALLEN IN THE PAST 12 MONTHS? NO . ANY NEW EXTREMITY NUMBNESS OR WEAKNESS? NO . CARDIOLOGY: DO YOU HAVE A PACEMAKER OR DEFIBRILLATOR? NO . RESPIRATORY: HAVE YOU BEEN SICK IN THE PAST WEEK? NO . FEVER NO . FLU LIKE SYMPTOMS? NO . COUGH NO . INTEGUMENTARY: DO YOU HAVE ANY RASHES OR OPEN SORES? NO . ALLERGIC/IMMUNO: ARE YOU ALLERGIC TO IV DYE? NO . ANY NEW ALLERGIES? NO . PSYCHIATRIC: DO YOU HAVE THOUGHTS OF HURTING YOURSELF OR SOMEONE ELSE? NO . ARE YOU ABUSED, NEGLECTED, OR IN AN UNSAFE ENVIRONMENT? NO . ENDOCRINOLOGY: ARE YOU DIABETIC? YES . OTHER: DO YOU NEED ANY PRESCRIPTIONS? NO . IF YES, PLEASE LIST: ____ . ANY NEW PROBLEMS WITH YOUR MEDICATIONS? NO . WHEN DID YOU LAST EAT? ____ . WHEN DID YOU LAST DRINK? ____ . WHAT DID YOU LAST DRINK? ____ . NAME OF PERSON DRIVING YOU HOME? ____ . DO YOU HAVE ANY OTHER QUESTIONS OR CONCERNS YES- HAD TPI- NECK 07/11/18 STATES SHE DOES NOT FEEL LIKE THEY WORKED . VITAL SIGNS WT 248.0 LBS, HT 66.75 IN, BMI 39.13 INDEX, BP 180/100 MANUAL, REPEAT BP 174/92 MANUAL, HR 69 /MIN, RR 18 /MIN, TEMP 97.8 F, OXYGEN SAT % 96%, SAFE IN ENV? (Y/N) YES, NA INITIALS AW [id number] STATES HER BP HAS BEEN RUNNING HIGH- STATES DR SHETH AWARE. EXAMINATION GENERAL EXAMINATION: GENERALNO ACUTE DISTRESS, WELL NOURISHED AND HYDRATED. PSYCHAPPROPRIATE MOOD AND AFFECT . LUNGS:BILATERAL CRACKLES THAT DO NOT RESOLVE WITH COUGHING (CURRENT SMOKER). HEART:NO MURMURS, REGULAR RATE AND RHYTHM. BACK: TENDER TO LIGHT TOUCH FROM CERVICAL SPINE TO LOWER LUMBAR REGION. THERE IS NO ERYTHEMA, INCREASED WARMTH, ECCHYMOSIS, AND/OR SKIN ERUPTIONS NOTED.. ASSESSMENTS INTERVERTEBRAL DISC DISORDERS WITH RADICULOPATHY, LUMBAR REGION - M51.16 (PRIMARY) TREATMENT INTERVERTEBRAL DISC DISORDERS WITH RADICULOPATHY, LUMBAR REGION INCREASE LYRICA CAPSULE, 200 MG, 1 CAPSULE, ORALLY, TID MDD=3, 30 DAYS, 90, NOTES: WORKERS COMP CLINICAL NOTES: 58 YEAR OLD FEMALE IN FOR POST PROCEDURAL FOLLOW UP THAT SHE REPORTS ONLY HELPED FOR AN HOUR. GIVEN PATIENT'S PRESENTING SYMPTOMS AND RESULTS OF PHYSICAL EXAMINATION RECOMMENDED INCREASING LYRICA TO THREE TIMES DAILY WITH FOLLOW UP IN 1 MONTH TO DETERMINE EFFICACY OF TREATMENT. GIVEN PATIENT'S BP IN OFFICE TODAY SHE WAS ENCOURAGED TO GO TO URGENT CARE OR FOLLOW UP WITH HER PCP WHICH SHE STATES SHE WILL DO AFTER LEAVING THE OFFICE TODAY. PATIENT HAS EXPRESSED UNDERSTANDING OF AND WAS IN AGREEMENT WITH TX PLAN. GIVEN TIME TO ASK QUESTIONS AND EXPRESS CONCERNS. , ISTOP REGISTRY REVIEWED AND DEMONSTRATES COMPLLIANCE. (REF _# [id number] ) BRINGS IN MEDICATIONS WHICH IS APPROPRIATE FOR WHAT WAS DISPENSED. RECENT URINE TOXICOLOGY REVIEWED. NO UNAUTHORIZED MEDICATIONS. NO ILLICIT SUBSTANCES AND PRESCRIBED MEDICATIONS WERE PRESENT. OTHERS CONTINUE OXYCODONE-ACETAMINOPHEN TABLET, 5-325 MG, 1 TABLET NEEDED, ORALLY FOR PAIN, EVERY 8 HRS MDD3 PREVENTIVE MEDICINE PAIN CLINIC TEACHING: MEDICATIONS MEDICATION CHANGES REVIEWED WITH PATIENT, PATIENT VERBALIZES UNDERSTANDING 09/05/18 VITALIY. PROCEDURE CODES FA211 ESTABILISHED PATIENT [facility] CHARGE DISPOSITION & COMMUNICATION FOLLOW UP 4 WEEKS (REASON: MEDICATION CHANGE FOLLOW UP ) ELECTRONICALLY SIGNED BY SOHEILA MDERANO ON 09/10/2018 AT 03:54 PM EDT DISCLAIMER : THIS IS A VISIT SUMMARY EXTRACTED FROM THE [employer] CHART. IT IS NOT A COPY OF THE [employer] PROGRESS NOTE. PRETTY
== END ==
LOC: M PAIN 10:00
PROVIDERS: ATTEND Family Medicine
DX: M51.16 Intervertebral disc disorders with radiculopathy, lumbar region (principal); E11.9 Type 2 diabetes mellitus without complications; J98.4 Other disorders of lung; K21.9 Gastro-esophageal reflux disease without esophagitis; M19.90 Unspecified osteoarthritis, unspecified site; E78.5 Hyperlipidemia, unspecified; I10 Essential (primary) hypertension; G25.81 Restless legs syndrome; M79.7 Fibromyalgia; M06.9 Rheumatoid arthritis, unspecified; E66.9 Obesity, unspecified; D64.9 Anemia, unspecified; G47.33 Obstructive sleep apnea (adult) (pediatric); I25.10 Atherosclerotic heart disease of native coronary artery without angina pectoris; F17.210 Nicotine dependence, cigarettes, uncomplicated; Z79.891 Long term (current) use of opiate analgesic; Z79.82 Long term (current) use of aspirin; Z79.4 Long term (current) use of insulin; Z79.899 Other long term (current) drug therapy; Z96.652 Presence of left artificial knee joint; Z90.49 Acquired absence of other specified parts of digestive tract; J30.9 Allergic rhinitis, unspecified

== ENCOUNTER → 2018-10-03 | Outpatient (CLI) | payer MEDICARE, MEDICAID ==
--- NOTE | 2018-10-05 01:23 | ECWPNPC ---
PATIENT NAME: ESTHER MAE : 1960 GENDER: FEMALE VISIT DATE: 10/03/2018 DISCHARGE DATE: 10/03/18 1047 VISIT LOCKED DATE TIME: PHYSICIAN: FREDERICK MILES RESOURCE: FREDERICK MILES REASON FOR APPOINTMENT 1. MEDICATION CHANGE FOLLOW UP HISTORY OF PRESENT ILLNESS HISTORY OF PRESENT ILLNESS: PAIN THE PATIENT DESCRIBES THE PAIN... 58 YEAR OLD FEMALE IN FOR CHRONIC PAIN FOLLOW UP. SHE WAS SEEN IN THE CLINIC RECENTLY AND HER LYRICA WAS INCREASED AND SHE SAYS IT HAS NOT BEEN HELPFUL. SHE RATES HER PAIN AT AN 8/10 CURRENTLY AND DESCRIBES IT ACHING, SHARP, STABBING, AND SHOOTING. SHE WOULD LIKE TO DISCUSS A POSSIBLE PROCEDURE. FALL RISK SCREENING: SCREENING :NO FALLS REPORTED IN THE LAST YEAR CURRENT MEDICATIONS TAKING INDOMETHACIN 50 MG CAPSULE 1 CAPSULE WITH FOOD OR MILK ORALLY NEEDED FOR PAIN TWICE A DAY TAKING PRAVASTATIN SODIUM 80 MG TABLET 1 TABLET ORALLY ONCE A DAY TAKING DEBROX 6.5 % SOLUTION 5 DROPS INTO LEFT AND RIGHT EARS OTIC TWICE A DAY TAKING IRON 28 MG TABLET 1 TABLET ORALLY ONCE A DAY TAKING INCRUSE ELLIPTA 62.5 MCG/INH AEROSOL POWDER BREATH ACTIVATED 1 PUFF INHALATION ONCE A DAY TAKING IPRATROPIUM-ALBUTEROL 0.5-2.5 (3) MG/3ML SOLUTION 3 ML INHALATION EVERY 4 HRS TAKING PROAIR HFA 108 (90 BASE) MCG/ACT AEROSOL SOLUTION 2 PUFFS NEEDED INHALATION EVERY 6 HRS TAKING CETIRIZINE HCL 10 MG TABLET 1 TABLET ORALLY ONCE A DAY TAKING ASPIR-81 81 MG TABLET DELAYED RELEASE 1 TABLET ORALLY ONCE A DAY TAKING EZETIMIBE 10 MG TABLET 1 TABLET ORALLY ONCE A DAY TAKING DULOXETINE HCL 60 MG CAPSULE DELAYED RELEASE PARTICLES 1 CAPSULE ORALLY ONCE A DAY TAKING CLOTRIMAZOLE 1 % CREAM 1 APPLICATION TO AFFECTED AREA OF LEFT FOOT EXTERNALLY TWICE A DAY TAKING ROPINIROLE HCL 0.5 MG TABLET 2 TAB ORALLY AT BEDTIME TAKING MISC. DEVICES - MISCELLANEOUS BP CUFF, CHECK ONCE A DAY, DX: I10. TAKING SPIRONOLACTONE 25 MG TABLET 1 TABLET ORALLY ONCE A DAY TAKING METFORMIN HCL 1000 MG TABLET 1 TAB(S) ORALLY BID TAKING BYDUREON 2 MG PEN-INJECTOR 1 INJECTION SUBCUTANEOUS WEEKLY TAKING LEVEMIR 100 UNIT/ML SOLUTION 20U SUBCUTANEOUS BEFORE BEDTIME TAKING NOVOLOG 100 UNIT/ML SOLUTION DIRECTED E11.9 SUBCUTANEOUS TID CC, NOTES: SLIDING SCALE: <=150: 0; 151-200: 3; 201-250: 6; 251-300: 9; 301-350: 12; 351-400: 15; MORE THAN 400: CALL VISUALIZER PHYSICIAN TAKING METOPROLOL TARTRATE 25 MG TABLET 1 TABLET WITH FOOD ORALLY TWICE A DAY TAKING OXYCODONE-ACETAMINOPHEN 5-325 MG TABLET 1 TABLET NEEDED ORALLY FOR PAIN EVERY 8 HRS MDD3 TAKING LYRICA 200 MG CAPSULE 1 CAPSULE ORALLY TID MDD=3, NOTES: WORKERS COMP TAKING ENBREL SURECLICK 50 MG/ML SOLUTION AUTO-INJECTOR 1 ML SUBCUTANEOUS TAKING PANTOPRAZOLE SODIUM 40 MG TABLET DELAYED RELEASE 1 TABLET ORALLY ONCE A DAY TAKING BUPROPION HCL ER (SR) 150 MG TABLET EXTENDED RELEASE 12 HOUR 1 TABLET ORALLY TWICE A DAY NOT-TAKING TRIAMCINOLONE ACETONIDE 0.1 % CREAM 1 APPLICATION TO AFFECTED AREA EXTERNALLY TWICE A DAY NOT-TAKING MACROBID 100 MG CAPSULE 1 CAPSULE WITH FOOD ORALLY EVERY 12 HRS NOT-TAKING KEFLEX 500 MG CAPSULE 1 CAPSULE ORALLY EVERY 12 HRS NOT-TAKING LOSARTAN POTASSIUM-HCTZ 50-12.5 MG TABLET 1 TABLET ORALLY ONCE A DAY NOT-TAKING POLYTRIM 03322-3.1 UNIT/ML SOLUTION 1 DROP INTO RIGHT EYE OPHTHALMIC FOUR TIMES A DAY MEDICATION LIST REVIEWED AND RECONCILED WITH THE PATIENT PAST MEDICAL HISTORY DM, A1C WAS 6.5 ON BYDUREON AND 72U/D OF LANTUS, PREVIOUSLY WAS HIGH 13. CHRONIC LUNG DISEASE, FOLLOWS WITH DR. WARREN LAST SEEN JULY 2017 GERD, HAS NEVER SEEN A GI DOCTOR, DENIES HAVING HAD ESOPHAGOGASTRODUODENOSCOPY. ARTHRITIS BACK PAIN/NECK PAIN, CHRONIC SHOULDER PAIN AND CHRONIC LEG PAIN FOR WHICH SHE IS ON PERCOCET X 4 YEARS HYPERLIPIDEMIA HYPERTENSION, DENIES HISTORY OF HEART FAILURE, S/P HEART CATH REPORTEDLY NEG 2006, HAS HISTORY OF "SILENT HEART ATTACK" SO FOLLOWS DR. SHETH WHO DID STRESS JULY 2017, SHE GETS RLS FIBROMYALGIA RA, FOLLOWS WITH RHEUMATOLOGY PA IN [facility], PREVIOUSLY ENBREL BEFORE LOSING INSURANCE, LAST SEEN AUGUST 2017 PNEUMONIA OBESITY, LOST 100 POUNDS INTENTIONALLY WITHOUT WEIGHT LOSS SURGERY ANEMIA: UNCERTAIN CAUSE, DIAGNOSIS BY CARDIOLOGY, ON IRON OBSTRUCTIVE SLEEP APNEA, DR. WARREN, USES BIPAP EVERY NIGHT CORONARY ARTERY DISEASE-RACING HEART, SEE DR SHETH ALLERGIES SEASONAL: RED, ITCHY EYES, HEADACHE, NASAL CONGESTION - ALLERGY SURGICAL HISTORY L KNEE REPLACEMENT 2013 CHOLECYSTECTOMY LEFT SHOULDER REPAIR [facility] CARDIAC CATHETERIZATION 06/2018 FAMILY HISTORY FATHER: , RHEUMATOID, DIAGNOSED WITH DIABETES, HYPERTENSION, HEART DISEASE, STROKE MOTHER: , RHEUMATOID, HYPERTENSION, HEART DISEASE, CANCER MATERNAL GRAND MOTHER: RHEUMATOID 2 SISTER(S) - HEALTHY. 1 SON(S) - HEALTHY. MOTHER: LUNG CA\\\\\\\\\\\\\\\\NOLDER SISTER()- CHF, HEART DISEASE\\\\\\\\\\\\\\\\N. SOCIAL HISTORY GENERAL: TOBACCO USE ARE YOU A:CURRENT SMOKER ARE YOU INTERESTED IN QUITTING?NOT READY TO QUIT COUNSELED THE PATIENT ON SMOKING EFFECTS, EDUCATION [id number]/07/2019 HOW MANY CIGARETTES A DAY DO YOU SMOKE?11-20 HOW SOON AFTER YOU WAKE UP DO YOU SMOKE YOUR FIRST CIGARETTE?6-30 MIN HOW OFTEN DO YOU SMOKE CIGARETTES?EVERY DAY PATIENT COUNSELED ON THE DANGERS OF TOBACCO USE AND URGED TO QUIT:09/13/2018 SMOKING CESSATION INFORMATION GIVEN09/13/2018 HIV / HEP-C SCREENING HIV TEST OFFERED TO PATIENT:YES DATE OFFERED:05/16/2018 TEST ACCEPTED:NO HEP-C TEST OFFERED TO PATIENT:NO REASON:PATIENT DECLINED BROCHURE PROVIDED TO PATIENTYES OTHERS AT HOME: NONE. EDUCATION LEVEL OF EDUCATION:HIGH SCHOOL DIET: REGULAR. LANGUAGE LANGUAGES SPOKEN:TURKMEN DOMESTIC VIOLENCE DO YOU FEEL SAFE IN YOUR ENVIRONMENT?YES BMI CARE GOAL FOLLOW-UP ABOVE NORMAL BMI FOLLOW-UPDIETARY MANAGEMENT EDUCATION, GUIDANCE, AND COUNSELING RECREATIONAL DRUG USE DRUG USE?NO EXERCISE: NO REGULAR EXERCISE. LEARNING BARRIERS / SPECIAL NEEDS CHANGE FROM LAST VISIT?NO BARRIERS TO LEARNING?NO HEARING IMPAIRED?NO VISION IMPAIRED?NO COGNITIVELY IMPAIRED?NO READINESS TO LEARN?YES LEARNING PREFERENCES?NO LEARNING CAPABILITIES PRESENT?YES EMOTIONAL BARRIERS?NO SPECIAL DEVICES?YES :OTHER BIPAP MANAGER PHOTOGRAPHY NEEDED?NO PAIN CLINIC PFS, CLERGY, PUBLIC HEALTH REFERRALS PFS REFERRAL NEEDED?NO CLERGY REFERRAL NEEDED?NO PUBLIC HEALTH REFERRAL NEEDED?NO WAS THE PROVIDER NOTIFIED OF ANY PERTINENT INFO?YES HAS THE PATIENT BEEN EDUCATED REGARDING HIS/HER PLAN OF CARE?YES HAS THE PATIENT BEEN EDUCATED REGARDING PAIN, THE RISK FOR PAIN, THE IMPORTANCE OF EFFECTIVE PAIN MANAGEMENT, AND THE PAIN ASSESSMENT PROCESS?YES LATEX QUESTIONNAIRE LATEX ALLERGY : HAVE YOU EVER DEVELOPED ANY TYPE OF REACTION AFTER HANDLING LATEX PRODUCTS SUCH RUBBER GLOVES, CONDOMS, DIAPHRAGMS, BALLOONS, SOCKS, OR UNDERWEAR?NO LATEX ALLERGY : HAVE YOU EVER DEVELOPED ANY TYPE OF REACTION DURING OR AFTER DENTAL APPOINTMENT, VAGINAL/RECTAL EXAMINATION, SURGICAL PROCEDURE, OR ANY OTHER EXPOSURE?NO DATE ASKED : 09/04/2018 LATEX RISK : HAVE YOU EVER HAD ANY DIFFICULTY BREATHING OR HIVES AFTER EATING OR HANDLING ANY FRUITS, OR VEGETABLES; SUCH KIWI, BANANAS, STONE FRUITS, OR CHESTNUTSNO LATEX RISK : DO YOU HAVE A PREVIOUS PERSONAL HISTORY OF MORE THAN NINE SURGERIES, SPINA BIFIDA, OR REPEATED CATHERIZATIONS? NO LATEX RISK : ARE YOU FREQUENTLY EXPOSED TO LATEX PRODUCTS IN YOUR OCCUPATION?NO CAFFEINE CAFFEINE USE?YES HOW OFTEN AND HOW MUCH? 2 CUPS COFFEE PER DAY DAILY BASIS ADVANCE DIRECTIVE ADVANCE DIRECTIVE DISCUSSED WITH PATIENT:YES HCP - SONIA BENNETT (SISTER) [phone] CHRISTIAN [id number] GNOSTICIST MARITAL STATUS: SINGLE. ALCOHOL SCREENING DID YOU HAVE A DRINK CONTAINING ALCOHOL IN THE PAST YEAR?NO POINTS0 INTERPRETATIONNEGATIVE OCCUPATION: UNEMPLOYED. SEXUAL HX HAD SEX IN THE LAST 12 MONTHS (VAGINAL, ORAL, OR ANAL)?NO HAVE YOU EVER HAD AN STD?NO REVIEWED WITH PATIENT 12/25/17 0914 JSREVEIWED WTIH PT 05/29/18 0903 BVREVIEWED WITH PATIENT 08/27/18 1001 JS. HOSPITALIZATION/MAJOR DIAGNOSTIC PROCEDURE SURGICALY RELATED PNEUMONIA-RESP FAILURE ON BIPAP 12/28/15 INFLUENZA/COPD 05/08/18 CHEST PAIN - CARDIAC CATHETERIZATION 06/2018 REVIEW OF SYSTEMS REVIEWED BY: PROVIDER: TRINIDAD MOLINA . CONSTITUTIONAL: ANY CHANGE IN YOUR MEDICAL CONDITION? YES, PT WAS TOLD SHE HAS BULDGING DISCS . CHILLS NO . FEVER NO . INFECTION: DO YOU HAVE NEW INFECTIONS? NO . DO YOU HAVE HISTORY OF MRSA? NO . MUSCULOSKELETAL: ANY NEW PATTERNS OF PAIN OR NUMBNESS? NO . GASTROENTEROLOGY: ANY NEW CHANGE IN BOWEL CONTROL? NO . GENITOURINARY: ANY NEW CHANGE IN BLADDER CONTROL? NO . IS THERE A CHANCE YOU COULD BE ? NO . HEMATOLOGY/LYMPH: DO YOU TAKE ANY BLOOD THINNERS? (FOR EXAMPLE- COUMADIN, PLAVIX, AGGRENOX, PLATEL, PRADAXA, OR XARELTO) NO . WHEN WAS YOUR LAST DOSE? DATE: TIME: . NEUROLOGY: HAVE YOU FALLEN IN THE PAST 12 MONTHS? NO . ANY NEW EXTREMITY NUMBNESS OR WEAKNESS? NO . CARDIOLOGY: DO YOU HAVE A PACEMAKER OR DEFIBRILLATOR? NO . RESPIRATORY: HAVE YOU BEEN SICK IN THE PAST WEEK? NO . FEVER NO . FLU LIKE SYMPTOMS? NO . COUGH NO . INTEGUMENTARY: DO YOU HAVE ANY RASHES OR OPEN SORES? NO . ALLERGIC/IMMUNO: ARE YOU ALLERGIC TO IV DYE? NO . ANY NEW ALLERGIES? NO . PSYCHIATRIC: DO YOU HAVE THOUGHTS OF HURTING YOURSELF OR SOMEONE ELSE? NO . ARE YOU ABUSED, NEGLECTED, OR IN AN UNSAFE ENVIRONMENT? NO . ENDOCRINOLOGY: ARE YOU DIABETIC? YES . OTHER: DO YOU NEED ANY PRESCRIPTIONS? NO . IF YES, PLEASE LIST: ____ . ANY NEW PROBLEMS WITH YOUR MEDICATIONS? NO . WHEN DID YOU LAST EAT? ____ . WHEN DID YOU LAST DRINK? ____ . WHAT DID YOU LAST DRINK? ____ . NAME OF PERSON DRIVING YOU HOME? ____ . DO YOU HAVE ANY OTHER QUESTIONS OR CONCERNS NO . VITAL SIGNS WT 250.7 LBS, HT 66.75 IN, BMI 39.56 INDEX, BP 189/84 MM HG, HR 67 /MIN, RR 18 /MIN, TEMP 96.8 F, OXYGEN SAT % 96%, NA INITIALS SC 10:19, REVIEWED BY: EM. EXAMINATION GENERAL EXAMINATION: GENERALNO ACUTE DISTRESS, WELL NOURISHED AND HYDRATED. PSYCHAPPROPRIATE MOOD AND AFFECT . LUNGS:CLEAR TO AUSCULTATION BILATERALLY, NO WHEEZES, RHONCHI, RALES. HEART:NO MURMURS, REGULAR RATE AND RHYTHM. BACK:POINT TENDER FROM THORACIC THROUGH LUMBAR SPINE. SKIN SHOWS NO ERYTHEMA, ECCHYMOSIS, INCREASED WARMTH, AND/OR SKIN ERUPTIONS. . MUSCULOSKELETAL:HAS EQUAL STRENGTH IN HER BILATERAL LOWER EXTREMITIES.. ASSESSMENTS INTERVERTEBRAL DISC DISORDERS WITH RADICULOPATHY, LUMBAR REGION - M51.16 (PRIMARY) TREATMENT INTERVERTEBRAL DISC DISORDERS WITH RADICULOPATHY, LUMBAR REGION NOTES: LESI L4-L5, L5-S1 . CLINICAL NOTES: 58 YEAR OLD FEMALE IN FOR CHRONIC PAIN FOLLOW UP. GIVEN PRESENTING SYMPTOMS AND RESULTS OF PHYSICAL EXAIMINATION RECOMMENDED LESI WITH POST PROCEDURAL FOLLOW UP. PATIENT HAS EXPRESSED UNDERSTANDING OF AND WAS IN AGREEMENT WITH TREATMENT PLAN. GIVEN TIME TO ASK QUESTIONS AND EXPRESS CONCERNS., ISTOP REGISTRY REVIEWED AND DEMONSTRATES COMPLLIANCE. (REF # [id number] ) BRINGS IN MEDICATIONS WHICH IS APPROPRIATE FOR WHAT WAS DISPENSED. RECENT URINE TOXICOLOGY REVIEWED. NO UNAUTHORIZED MEDICATIONS. NO ILLICIT SUBSTANCES AND PRESCRIBED MEDICATIONS WERE PRESENT. PROCEDURE CODES [id number] ESTABILISHED PATIENT [facility] CHARGE DISPOSITION & COMMUNICATION FOLLOW UP POST PROCEDURE (REASON: LESI L4-L5, L5-S1) ELECTRONICALLY SIGNED BY SOHEILA MEDRANO ON 10/04/2018 AT 08:38 AM EDT DISCLAIMER : THIS IS A VISIT SUMMARY EXTRACTED FROM THE [employer] CHART. IT IS NOT A COPY OF THE [employer] PROGRESS NOTE. PRETTY
== END ==
LOC: M PAIN 10:00
PROVIDERS: ATTEND Family Medicine
DX: M51.16 Intervertebral disc disorders with radiculopathy, lumbar region (principal); G89.29 Other chronic pain; E11.9 Type 2 diabetes mellitus without complications; K21.9 Gastro-esophageal reflux disease without esophagitis; M19.90 Unspecified osteoarthritis, unspecified site; E78.5 Hyperlipidemia, unspecified; I10 Essential (primary) hypertension; G25.81 Restless legs syndrome; M79.7 Fibromyalgia; D50.9 Iron deficiency anemia, unspecified; G47.33 Obstructive sleep apnea (adult) (pediatric); I25.10 Atherosclerotic heart disease of native coronary artery without angina pectoris; Z96.652 Presence of left artificial knee joint; Z95.5 Presence of coronary angioplasty implant and graft; F17.210 Nicotine dependence, cigarettes, uncomplicated; Z79.51 Long term (current) use of inhaled steroids; Z79.82 Long term (current) use of aspirin; Z79.4 Long term (current) use of insulin; Z79.899 Other long term (current) drug therapy

== ENCOUNTER → 2018-10-10 | Outpatient (REF) | payer MEDICARE, MEDICAID ==
[~2018-10-10] MED LIST changes: -ENBR50IN4 SC; +ETAN50PE SC; -INDO50CA11 PO; +INDO50CA91 PO; +ZETI10TA16 PO; -ZETI10TA30 PO
[2018-10-10 17:40] LABS: BLOOD UREA NITROGEN 18 MG/DL (7-18); CALCIUM LEVEL 8.5 MG/DL (8.5-10.1); CARBON DIOXIDE LEVEL 32 MEQ/L (21-32); CHLORIDE LEVEL 100 MEQ/L (98-107); CREATININE FOR GFR 0.91 MG/DL (0.55-1.30); GLOMERULAR FILTRATION RATE > 60.0 (>51); GLUCOSE, FASTING 204 MG/DL (70-100); POTASSIUM SERUM 5.2 MEQ/L (3.5-5.1); SODIUM LEVEL 137 MEQ/L (136-145)
[2018-10-10 18:01] LABS: MALB URINE SIEMENS 12.9 MG/L; MAU/CREAT RATIO 9.5 MCG/MG (0.0-30.0)
[2018-10-10 19:04] LABS: HEMOGLOBIN A1c 9.5 %
== END ==
LOC: M SFHCLERA 08:01
PROVIDERS: ATTEND Family Medicine
DX: E11.65 Type 2 diabetes mellitus with hyperglycemia (principal)

== ENCOUNTER → 2018-11-22 | Outpatient (CLI) | payer MEDICARE, MEDICAID ==
[~2018-11-22] MED LIST changes: +ISOVUE-M 300 61% 15ML VIAL (Q9967) As Ordered ONE; +LIDOCAINE 1% SDV INJ 30 ML VIAL As Ordered ONE; +METF-791 PO; -METF500T4 PO; +methylPREDNISolone SUSP 40 MG/ML (DEPO-medrol) VIAL (J1030) As Ordered ONE; +oxyCODONE 5MG TAB As Ordered ONE
--- NOTE | 2018-11-22 14:26 | REP ---
C-ARM VIEWS LUMBAR SPINE: Two C-arm views lumbar spine performed during epidural injection performed by Dr. Mendoza. Needle was seen at the L5 level. 22 seconds fluoroscopy time utilized. Electronically Signed by German Escalona MD 11/22/2018 04:56 P
--- NOTE | 2018-12-02 23:15 | ECWPNPC ---
PATIENT NAME: ESTHER MAE : 1960 GENDER: FEMALE VISIT DATE: 11/22/2018 DISCHARGE DATE: 11/22/18 1430 VISIT LOCKED DATE TIME: PHYSICIAN: JOSE CORTEZ MD RESOURCE: JOSE CORTEZ MD REASON FOR APPOINTMENT 1. NON COMP LESI L5-S1 HISTORY OF PRESENT ILLNESS HISTORY OF PRESENT ILLNESS: PAIN THE PATIENT DESCRIBES THE PAIN... FALL RISK SCREENING: SCREENING :NO FALLS REPORTED IN THE LAST YEAR CURRENT MEDICATIONS TAKING INDOMETHACIN 50 MG CAPSULE 1 CAPSULE WITH FOOD OR MILK ORALLY NEEDED FOR PAIN TWICE A DAY TAKING IRON 28 MG TABLET 1 TABLET ORALLY ONCE A DAY TAKING INCRUSE ELLIPTA 62.5 MCG/INH AEROSOL POWDER BREATH ACTIVATED 1 PUFF INHALATION ONCE A DAY TAKING IPRATROPIUM-ALBUTEROL 0.5-2.5 (3) MG/3ML SOLUTION 3 ML INHALATION EVERY 4 HRS NEEDED TAKING PROAIR HFA 108 (90 BASE) MCG/ACT AEROSOL SOLUTION 2 PUFFS NEEDED INHALATION EVERY 6 HRS TAKING ASPIR-81 81 MG TABLET DELAYED RELEASE 1 TABLET ORALLY ONCE A DAY TAKING CLOTRIMAZOLE 1 % CREAM 1 APPLICATION TO AFFECTED AREA OF LEFT FOOT EXTERNALLY TWICE A DAY TAKING MISC. DEVICES - MISCELLANEOUS BP CUFF, CHECK ONCE A DAY, DX: I10. TAKING LYRICA 200 MG CAPSULE 1 CAPSULE ORALLY TID MDD=3, NOTES: WORKERS COMP TAKING ENBREL SURECLICK 50 MG/ML SOLUTION AUTO-INJECTOR 1 ML SUBCUTANEOUS WEEKLY, NOTES: 11/09 TAKING BUPROPION HCL ER (SR) 150 MG TABLET EXTENDED RELEASE 12 HOUR 1 TABLET ORALLY TWICE A DAY TAKING ROPINIROLE HCL 0.5 MG TABLET 2 TAB ORALLY AT BEDTIME TAKING DULOXETINE HCL 60 MG CAPSULE DELAYED RELEASE PARTICLES 1 CAPSULE ORALLY ONCE A DAY TAKING OXYCODONE-ACETAMINOPHEN 5-325 MG TABLET 1 TABLET NEEDED ORALLY FOR PAIN EVERY 8 HRS MDD3, NOTES: 11/22 0200 TAKING PANTOPRAZOLE SODIUM 40 MG TABLET DELAYED RELEASE TAKE ONE TABLET BY MOUTH ONCE A DAY (STOP OMEPRAZOLE) TAKING METFORMIN HCL 1000 MG TABLET 1 TAB(S) ORALLY BID, NOTES: 11/21 170 TAKING BYDUREON 2 MG PEN-INJECTOR 1 INJECTION SUBCUTANEOUS WEEKLY, NOTES: 11/09 TAKING LEVEMIR 100 UNIT/ML SOLUTION 15U IN AM AND 15U IN PM SUBCUTANEOUS DIRECTED, NOTES: 11/21 2029 TAKING GLUCOMETER E11.9 CHECK ACHS TAKING BLOOD GLUCOSE TEST - STRIP E11.9 CHECK ACHS IN VITRO DIRECTED TAKING LANCETS - MISCELLANEOUS E11.9 CHECK ACHS DIRECTED TAKING PRAVASTATIN SODIUM 80 MG TABLET 1 TABLET ORALLY ONCE A DAY TAKING EZETIMIBE 10 MG TABLET 1 TABLET ORALLY ONCE A DAY TAKING METOPROLOL TARTRATE 25 MG TABLET 1 TABLET WITH FOOD ORALLY TWICE A DAY TAKING SPIRONOLACTONE 25 MG TABLET 1/2 TABLET ORALLY ONCE A DAY TAKING NOVOLOG 100 UNIT/ML SOLUTION DIRECTED E11.9 SUBCUTANEOUS TID SLIDING SCALE, NOTES: 2-3 DAYS AGO TAKING CETIRIZINE HCL 10 MG TABLET 1 TABLET ORALLY ONCE A DAY NOT-TAKING DEBROX 6.5 % SOLUTION 5 DROPS INTO LEFT AND RIGHT EARS OTIC TWICE A DAY NOT-TAKING TRIAMCINOLONE ACETONIDE 0.1 % CREAM 1 APPLICATION TO AFFECTED AREA EXTERNALLY TWICE A DAY NOT-TAKING MACROBID 100 MG CAPSULE 1 CAPSULE WITH FOOD ORALLY EVERY 12 HRS NOT-TAKING KEFLEX 500 MG CAPSULE 1 CAPSULE ORALLY EVERY 12 HRS NOT-TAKING LOSARTAN POTASSIUM-HCTZ 50-12.5 MG TABLET 1 TABLET ORALLY ONCE A DAY NOT-TAKING POLYTRIM 81298-3.1 UNIT/ML SOLUTION 1 DROP INTO RIGHT EYE OPHTHALMIC FOUR TIMES A DAY MEDICATION LIST REVIEWED AND RECONCILED WITH THE PATIENT PAST MEDICAL HISTORY DM, A1C WAS 6.5 ON BYDUREON AND 72U/D OF LANTUS, PREVIOUSLY WAS HIGH 13. CHRONIC LUNG DISEASE, FOLLOWS WITH DR. WARREN LAST SEEN JULY 2017 GERD, HAS NEVER SEEN A GI DOCTOR, DENIES HAVING HAD ESOPHAGOGASTRODUODENOSCOPY. ARTHRITIS BACK PAIN/NECK PAIN, CHRONIC SHOULDER PAIN AND CHRONIC LEG PAIN FOR WHICH SHE IS ON PERCOCET X 4 YEARS HYPERLIPIDEMIA HYPERTENSION, DENIES HISTORY OF HEART FAILURE, S/P HEART CATH REPORTEDLY NEG 2006, HAS HISTORY OF "SILENT HEART ATTACK" SO FOLLOWS DR. SHETH WHO DID STRESS JULY 2017, SHE GETS RLS FIBROMYALGIA RA, FOLLOWS WITH RHEUMATOLOGY PA IN [facility], PREVIOUSLY ENBREL BEFORE LOSING INSURANCE, LAST SEEN AUGUST 2017 PNEUMONIA OBESITY, LOST 100 POUNDS INTENTIONALLY WITHOUT WEIGHT LOSS SURGERY ANEMIA: UNCERTAIN CAUSE, DIAGNOSIS BY CARDIOLOGY, ON IRON OBSTRUCTIVE SLEEP APNEA, DR. WARREN, USES BIPAP EVERY NIGHT CORONARY ARTERY DISEASE-RACING HEART, SEE DR SHETH ALLERGIES SEASONAL: RED, ITCHY EYES, HEADACHE, NASAL CONGESTION - ALLERGY SURGICAL HISTORY L KNEE REPLACEMENT 2013 CHOLECYSTECTOMY LEFT SHOULDER REPAIR [facility] CARDIAC CATHETERIZATION 06/2018 FAMILY HISTORY FATHER: , RHEUMATOID, DIAGNOSED WITH DIABETES, HYPERTENSION, UNSPECIFIED HEART DISEASE, UNSPECIFIED CEREBRAL ARTERY OCCLUSION WITH CEREBRAL INFARCTION MOTHER: , RHEUMATOID, HYPERTENSION, UNSPECIFIED HEART DISEASE, OTHER MALIGNANT NEOPLASM OF UNSPECIFIED SITE MATERNAL GRAND MOTHER: RHEUMATOID 2 SISTER(S) - HEALTHY. 1 SON(S) - HEALTHY. MOTHER: LUNG CA\\\\\\\\\\\\\\\\NOLDER SISTER()- CHF, HEART DISEASE\\\\\\\\\\\\\\\\N. SOCIAL HISTORY GENERAL: TOBACCO USE ARE YOU A:CURRENT SMOKER ARE YOU INTERESTED IN QUITTING?NOT READY TO QUIT COUNSELED THE PATIENT ON SMOKING EFFECTS, EDUCATION [id number]/26/2019 HOW MANY CIGARETTES A DAY DO YOU SMOKE?6-10 HOW SOON AFTER YOU WAKE UP DO YOU SMOKE YOUR FIRST CIGARETTE?6-30 MIN HOW OFTEN DO YOU SMOKE CIGARETTES?EVERY DAY PATIENT COUNSELED ON THE DANGERS OF TOBACCO USE AND URGED TO QUIT:11/22/2018 SMOKING CESSATION INFORMATION GIVEN11/07/2018 HIV / HEP-C SCREENING HIV TEST OFFERED TO PATIENT:YES DATE OFFERED:05/16/2018 TEST ACCEPTED:NO HEP-C TEST OFFERED TO PATIENT:NO REASON:PATIENT DECLINED BROCHURE PROVIDED TO PATIENTYES OTHERS AT HOME: NONE. EDUCATION LEVEL OF EDUCATION:HIGH SCHOOL DIET: REGULAR. LANGUAGE LANGUAGES SPOKEN:UZBEK DOMESTIC VIOLENCE DO YOU FEEL SAFE IN YOUR ENVIRONMENT?YES BMI CARE GOAL FOLLOW-UP ABOVE NORMAL BMI FOLLOW-UPDIETARY MANAGEMENT EDUCATION, GUIDANCE, AND COUNSELING RECREATIONAL DRUG USE DRUG USE?NO EXERCISE: NO REGULAR EXERCISE. LEARNING BARRIERS / SPECIAL NEEDS CHANGE FROM LAST VISIT?NO BARRIERS TO LEARNING?NO HEARING IMPAIRED?NO VISION IMPAIRED?NO COGNITIVELY IMPAIRED?NO READINESS TO LEARN?YES LEARNING PREFERENCES?NO LEARNING CAPABILITIES PRESENT?YES EMOTIONAL BARRIERS?NO SPECIAL DEVICES?YES :OTHER BIPAP SCOUTS NEEDED?NO PAIN CLINIC PFS, CLERGY, PUBLIC HEALTH REFERRALS PFS REFERRAL NEEDED?NO CLERGY REFERRAL NEEDED?NO PUBLIC HEALTH REFERRAL NEEDED?NO WAS THE PROVIDER NOTIFIED OF ANY PERTINENT INFO? N/A HAS THE PATIENT BEEN EDUCATED REGARDING HIS/HER PLAN OF CARE?YES HAS THE PATIENT BEEN EDUCATED REGARDING PAIN, THE RISK FOR PAIN, THE IMPORTANCE OF EFFECTIVE PAIN MANAGEMENT, AND THE PAIN ASSESSMENT PROCESS?YES LATEX QUESTIONNAIRE LATEX ALLERGY : HAVE YOU EVER DEVELOPED ANY TYPE OF REACTION AFTER HANDLING LATEX PRODUCTS SUCH RUBBER GLOVES, CONDOMS, DIAPHRAGMS, BALLOONS, SOCKS, OR UNDERWEAR?NO LATEX ALLERGY : HAVE YOU EVER DEVELOPED ANY TYPE OF REACTION DURING OR AFTER DENTAL APPOINTMENT, VAGINAL/RECTAL EXAMINATION, SURGICAL PROCEDURE, OR ANY OTHER EXPOSURE?NO DATE ASKED : 09/04/2018 LATEX RISK : HAVE YOU EVER HAD ANY DIFFICULTY BREATHING OR HIVES AFTER EATING OR HANDLING ANY FRUITS, OR VEGETABLES; SUCH KIWI, BANANAS, STONE FRUITS, OR CHESTNUTSNO LATEX RISK : DO YOU HAVE A PREVIOUS PERSONAL HISTORY OF MORE THAN NINE SURGERIES, SPINA BIFIDA, OR REPEATED CATHERIZATIONS? NO LATEX RISK : ARE YOU FREQUENTLY EXPOSED TO LATEX PRODUCTS IN YOUR OCCUPATION?NO CAFFEINE CAFFEINE USE?YES HOW OFTEN AND HOW MUCH? 2 CUPS COFFEE PER DAY DAILY BASIS ADVANCE DIRECTIVE ADVANCE DIRECTIVE DISCUSSED WITH PATIENT:YES HCP - SONIA BENNETT (SISTER) [phone] ORTHODOXY [id number] ORTHODOX MARITAL STATUS: SINGLE. 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 SEXUAL HX HAD SEX IN THE LAST 12 MONTHS (VAGINAL, ORAL, OR ANAL)?NO HAVE YOU EVER HAD AN STD?NO REVIEWED WITH PATIENT 12/25/17 0914 JSREVEIWED WTIH PT 05/29/18 0903 BVREVIEWED WITH PATIENT 08/27/18 1001 JS11/22/18 1249 REVIEWED WITH PT. AD. HOSPITALIZATION/MAJOR DIAGNOSTIC PROCEDURE SURGICALY RELATED PNEUMONIA-RESP FAILURE ON BIPAP 12/28/15 INFLUENZA/COPD 05/08/18 CHEST PAIN - CARDIAC CATHETERIZATION 06/2018 REVIEW OF SYSTEMS REVIEWED BY: PROVIDER: . CONSTITUTIONAL: ANY CHANGE IN YOUR MEDICAL CONDITION? NO . CHILLS NO . FEVER NO . INFECTION: DO YOU HAVE NEW INFECTIONS? NO . DO YOU HAVE HISTORY OF MRSA? NO . MUSCULOSKELETAL: ANY NEW PATTERNS OF PAIN OR NUMBNESS? NO . GASTROENTEROLOGY: ANY NEW CHANGE IN BOWEL CONTROL? NO . GENITOURINARY: ANY NEW CHANGE IN BLADDER CONTROL? NO . IS THERE A CHANCE YOU COULD BE ? NO . HEMATOLOGY/LYMPH: DO YOU TAKE ANY BLOOD THINNERS? (FOR EXAMPLE- COUMADIN, PLAVIX, AGGRENOX, PLATEL, PRADAXA, OR XARELTO) NO . WHEN WAS YOUR LAST DOSE? DATE: TIME: . NEUROLOGY: HAVE YOU FALLEN IN THE PAST 12 MONTHS? NO . ANY NEW EXTREMITY NUMBNESS OR WEAKNESS? NO . CARDIOLOGY: DO YOU HAVE A PACEMAKER OR DEFIBRILLATOR? NO . RESPIRATORY: HAVE YOU BEEN SICK IN THE PAST WEEK? NO . FEVER NO . FLU LIKE SYMPTOMS? NO . COUGH NO . INTEGUMENTARY: DO YOU HAVE ANY RASHES OR OPEN SORES? NO . ALLERGIC/IMMUNO: ARE YOU ALLERGIC TO IV DYE? NO . ANY NEW ALLERGIES? NO . PSYCHIATRIC: DO YOU HAVE THOUGHTS OF HURTING YOURSELF OR SOMEONE ELSE? NO . ARE YOU ABUSED, NEGLECTED, OR IN AN UNSAFE ENVIRONMENT? NO . ENDOCRINOLOGY: ARE YOU DIABETIC? YES FSBS 149 @ 1000 . OTHER: DO YOU NEED ANY PRESCRIPTIONS? NO . IF YES, PLEASE LIST: ____ . ANY NEW PROBLEMS WITH YOUR MEDICATIONS? NO . WHEN DID YOU LAST EAT? 11/22 170 . WHEN DID YOU LAST DRINK? 11/21 2099 . WHAT DID YOU LAST DRINK? WATER . NAME OF PERSON DRIVING YOU HOME? GILL MCMILLAN . DO YOU HAVE ANY OTHER QUESTIONS OR CONCERNS NO DR. CORTEZ AWARE OF LAST DOSE OF ENBREL. HE DISCUSSED THE RISKS INVOLVED WITH DOING THE PROCEDURE WITHOUT HOLDING THE MED PRIOR TO HAVING THE PROCEDURE AND PT ELECTED TO HAVE PROCEDURE TODAY. . VITAL SIGNS WT 245.4 LBS, HT 66.75 IN, BMI 38.72 INDEX, BP 197/103 MM HG, REPEAT BP 158/90MANUAL, HR 66 /MIN, RR 18 /MIN, TEMP 96.7 F, OXYGEN SAT % 95%, SAFE IN ENV? (Y/N) Y, NA INITIALS TX 11:04, REVIEWED BY: OSEI MYERSECK PT'S BP. ASSESSMENTS INTERVERTEBRAL DISC DISORDER WITH RADICULOPATHY OF LUMBOSACRAL REGION - M51.17 (PRIMARY) PROCEDURES PRE PROCEDURE DIAGNOSIS LUMBOSACRAL SPINAL STENOSIS, LUMBOSACRAL DISC DISORDER WITH RADICULOPATHY POST PROCEDURE DIAGNOSIS LUMBOSACRAL SPINAL STENOSIS , LUMBOSACRAL DISC DISORDER WITH RADICULOPATHY PROCEDURE LUMBAR EPIDURAL STEROID INJECTION UNDER FLUOROSCOPIC GUIDANCE SURGEON DR. JOSE CORTEZ ELIGIBILITY SPECIALIST NONE ANESTHESIA LOCAL PRE PROCEDURE NOTE THE PATIENT HAS A HISTORY OF CHRONIC LOW BACK PAIN. I EVALUATED THE PATIENT AND REVIEWED THE CHART. I WENT OVER THE RISKS, ALTERNATIVES, AND BENEFITS ASSOCIATED WITH THIS PROCEDURE. THE PATIENT WOULD LIKE TO PROCEED AND GIVE CONSENT TO PERFORMED THE PROCEDURE. THE PATIENT DENIES UNEXPLAINABLE WEIGHT LOSS, FEVER, CHILLS, OR NEW CHANGES IN URINARY OR BOWEL CONTROL. DESCRIPTION OF PROCEDURE THE PATIENT WAS BROUGHT TO THE PROCEDURE ROOM AND PLACED IN THE PRONE POSITION. THE LUMBOSACRAL AREA WAS CLEANED WITH BETADINE SOLUTION AND DRAPED ASEPTICALLY. THE PROCEDURE WAS DONE UNDER STERILE CONDITIONS. I CHECKED LATERALITY AND THE LEVEL WHERE THE PROCEDURE WAS GOING TO BE PERFORMED WITH THE PATIENT AND THE SUPPORTING STAFF AT THE MOMENT OF THE TIME OUT IN THE PROCEDURE ROOM. UNDER FLUOROSCOPIC GUIDANCE, THE TARGET POINT WAS SELECTED AT THE INTERLAMINAR LEVEL OF L5-S1 . LIDOCAINE WAS USED TO NUMB THE SKIN AND THE SUBCUTANEOUS TISSUE BELOW IT. EPIDURAL TUOHY NEEDLE, 17-GAUGE, WAS ADVANCED UNDER FLUOROSCOPIC GUIDANCE AND FOLLOWING PATIENT FEEDBACK UNTIL THE EPIDURAL SPACE WAS REACHED, 7 CM DEEP INTO THE SKIN BY THE LOSS OF RESISTANCE TECHNIQUE. ISOVUE M DYE 30%, 0.25 ML, WAS INJECTED SHOWING ADEQUATE SPREAD OF THE DYE. THEN, A SOLUTION OF 3 ML OF NORMAL SALINE WITH DEPO-MEDROL 60 MG WAS INJECTED SLOWLY FOLLOWING PATIENT FEEDBACK. THERE WAS NO EVIDENCE OF BLOOD, PARESTHESIA OR CEREBROSPINAL FLUID DURING THE PROCEDURE. THE PATIENT WAS SENT TO THE RECOVERY ROOM. THE PATIENT WAS MOVING THE EXTREMITIES AND DOING WELL. THERE WAS NO COMPLICATION DURING THE PROCEDURE. FLUOROSCOPY TIME WAS 22 SECONDS. POST PROCEDURE NOTE THE PATIENT WILL BE SEEN IN A FOLLOW UP IN THE NEXT FEW WEEKS. INSTRUCTIONS WERE GIVEN, QUESTIONS WERE ANSWERED, AND THE PATIENT EXPRESSED UNDERSTANDING AND AGREES WITH THE PLAN. I, DARRELL SALMERON, DOCUMENTED THE ABOVE INFORMATION ACTING A SCRIBE FOR DR. CORTEZ. I HAVE REVIEWED THE ABOVE DOCUMENT, WRITTEN BY DARRELL ROSS AND I VERIFY THAT IT IS ACCURATE. DIAGNOSTIC IMAGING [facility] FLUORO GUIDE SPINE INJECTION (PAIN)[id number] PROCEDURE CODES 45326 LUMBAR/SACRAL W/ IMAGING 6045F RADXPS IN END [id number] PXD DISPOSITION & COMMUNICATION FOLLOW UP 2 WEEKS ELECTRONICALLY SIGNED BY JOSE CORTEZ MD, MD ON 12/02/2018 AT 12:21 PM EDT DISCLAIMER : THIS IS A VISIT SUMMARY EXTRACTED FROM THE [employer] CHART. IT IS NOT A COPY OF THE [employer] PROGRESS NOTE. MTDD
== END ==
LOC: M PAIN 11:15
PROVIDERS: ATTEND Anesthesiology
DX: M51.17 Intervertebral disc disorders with radiculopathy, lumbosacral region (principal); E11.9 Type 2 diabetes mellitus without complications; K21.9 Gastro-esophageal reflux disease without esophagitis; E78.5 Hyperlipidemia, unspecified; I10 Essential (primary) hypertension; G25.81 Restless legs syndrome; M79.7 Fibromyalgia; M06.9 Rheumatoid arthritis, unspecified; M54.2 Cervicalgia; J30.2 Other seasonal allergic rhinitis; F17.210 Nicotine dependence, cigarettes, uncomplicated; E66.9 Obesity, unspecified; D64.9 Anemia, unspecified; G47.33 Obstructive sleep apnea (adult) (pediatric); I25.10 Atherosclerotic heart disease of native coronary artery without angina pectoris; Z68.38 Body mass index [BMI] 38.0-38.9, adult; Z96.652 Presence of left artificial knee joint; Z90.49 Acquired absence of other specified parts of digestive tract; Z79.82 Long term (current) use of aspirin; Z79.4 Long term (current) use of insulin; Z79.891 Long term (current) use of opiate analgesic; Z79.899 Other long term (current) drug therapy
CPT/HCPCS: 62323; J1030; Q9967

== ENCOUNTER → 2018-12-25 | Outpatient (REF) | payer MEDICARE, MEDICAID ==
[~2018-12-25] MED LIST changes: -ISOVUE-M 300 61% 15ML VIAL (Q9967) As Ordered ONE; -LIDOCAINE 1% SDV INJ 30 ML VIAL As Ordered ONE; -methylPREDNISolone SUSP 40 MG/ML (DEPO-medrol) VIAL (J1030) As Ordered ONE; -oxyCODONE 5MG TAB As Ordered ONE
== END ==
LOC: M SFHCLERA 16:50
PROVIDERS: ATTEND Family Medicine
DX: E11.65 Type 2 diabetes mellitus with hyperglycemia (principal); Z53.8 Procedure and treatment not carried out for other reasons

== ENCOUNTER → 2018-12-31 | Outpatient (REF) | payer MEDICARE, MEDICAID ==
[2018-12-31 14:23] LABS: HEMOGLOBIN A1c 9.3 %
== END ==
LOC: M SFHCLERA 09:38
PROVIDERS: ATTEND Family Medicine
DX: E11.65 Type 2 diabetes mellitus with hyperglycemia (principal)

== ENCOUNTER → 2019-02-18 | Outpatient (CLI) | payer MEDICARE, MEDICAID ==
[~2019-02-18] MED LIST changes: +OMEP-172 PO; -OMEP20CA4 PO
--- NOTE | 2019-02-22 01:33 | ECWPNPC ---
PATIENT NAME: ESTHER MAE : 1960 GENDER: FEMALE VISIT DATE: 02/18/2019 DISCHARGE DATE: 02/18/19 1122 VISIT LOCKED DATE TIME: PHYSICIAN: FREDERICK MILES RESOURCE: FREDERICK MILES REASON FOR APPOINTMENT 1. NON COMP POST PROC HISTORY OF PRESENT ILLNESS HISTORY OF PRESENT ILLNESS: PAIN THE PATIENT DESCRIBES THE PAIN... 58-YEAR-OLD FEMALE IN FOR POST LESI FOLLOW-UP. SHE FEELS THE PROCEDURE WAS NOT EFFECTIVE AT ALL. SHE RATES HER PAIN CURRENTLY AT A 10 OUT OF 10 AND DESCRIBES IT ACHING, SHARP, BURNING, STABBING, SHOOTING, AND TENDER. FALL RISK SCREENING: SCREENING :NO FALLS REPORTED IN THE LAST YEAR CURRENT MEDICATIONS TAKING IRON 28 MG TABLET 1 TABLET ORALLY ONCE A DAY TAKING INCRUSE ELLIPTA 62.5 MCG/INH AEROSOL POWDER BREATH ACTIVATED 1 PUFF INHALATION ONCE A DAY TAKING IPRATROPIUM-ALBUTEROL 0.5-2.5 (3) MG/3ML SOLUTION 3 ML INHALATION EVERY 4 HRS NEEDED TAKING PROAIR HFA 108 (90 BASE) MCG/ACT AEROSOL SOLUTION 2 PUFFS NEEDED INHALATION EVERY 6 HRS TAKING ASPIR-81 81 MG TABLET DELAYED RELEASE 1 TABLET ORALLY ONCE A DAY TAKING CLOTRIMAZOLE 1 % CREAM 1 APPLICATION TO AFFECTED AREA OF LEFT FOOT EXTERNALLY TWICE A DAY NEEDED TAKING MISC. DEVICES - MISCELLANEOUS BP CUFF, CHECK ONCE A DAY, DX: I10. TAKING ENBREL SURECLICK 50 MG/ML SOLUTION AUTO-INJECTOR 1 ML SUBCUTANEOUS WEEKLY TAKING GLUCOMETER E11.9 CHECK ACHS TAKING BLOOD GLUCOSE TEST - STRIP E11.9 CHECK ACHS IN VITRO DIRECTED TAKING LANCETS - MISCELLANEOUS E11.9 CHECK ACHS DIRECTED TAKING PRAVASTATIN SODIUM 80 MG TABLET 1 TABLET ORALLY ONCE A DAY TAKING EZETIMIBE 10 MG TABLET 1 TABLET ORALLY ONCE A DAY TAKING METOPROLOL TARTRATE 25 MG TABLET 1 TABLET WITH FOOD ORALLY TWICE A DAY TAKING NOVOLOG 100 UNIT/ML SOLUTION DIRECTED E11.9 SUBCUTANEOUS TID SLIDING SCALE TAKING CETIRIZINE HCL 10 MG TABLET 1 TABLET ORALLY ONCE A DAY TAKING TRIAMCINOLONE ACETONIDE 0.1 % CREAM 1 APPLICATION TO AFFECTED AREA EXTERNALLY TWICE A DAY TAKING JARDIANCE 10 MG TABLET 1 TABLET ORALLY ONCE A DAY TAKING METFORMIN HCL 850 MG TABLET 1 TABLET WITH A MEAL ORALLY BID TAKING LEVEMIR 100 UNIT/ML SOLUTION 15U IN AM AND 15U IN PM SUBCUTANEOUS DIRECTED TAKING BYDUREON 2 MG PEN-INJECTOR 1 INJECTION SUBCUTANEOUS WEEKLY TAKING ROPINIROLE HCL 0.5 MG TABLET 2 TAB ORALLY AT BEDTIME TAKING OXYCODONE-ACETAMINOPHEN 5-325 MG TABLET 1 TABLET NEEDED ORALLY FOR PAIN EVERY 8 HRS MDD3 TAKING SPIRONOLACTONE 25 MG TABLET 1 TABLET ORALLY ONCE A DAY TAKING BUPROPION HCL ER (SR) 150 MG TABLET EXTENDED RELEASE 12 HOUR 1 TABLET ORALLY TWICE A DAY TAKING LYRICA 200 MG CAPSULE 1 CAPSULE ORALLY TID MDD=3, NOTES: WORKERS COMP TAKING PANTOPRAZOLE SODIUM 40 MG TABLET DELAYED RELEASE TAKE ONE TABLET BY MOUTH ONCE A DAY (STOP OMEPRAZOLE) TAKING DULOXETINE HCL 60 MG CAPSULE DELAYED RELEASE PARTICLES 1 CAPSULE ORALLY ONCE A DAY NOT-TAKING LOSARTAN POTASSIUM-HCTZ 50-12.5 MG TABLET 1 TABLET ORALLY ONCE A DAY NOT-TAKING INDOMETHACIN 50 MG CAPSULE 1 CAPSULE WITH FOOD OR MILK ORALLY NEEDED FOR PAIN TWICE A DAY NOT-TAKING DEBROX 6.5 % SOLUTION 5 DROPS INTO LEFT AND RIGHT EARS OTIC TWICE A DAY NOT-TAKING MACROBID 100 MG CAPSULE 1 CAPSULE WITH FOOD ORALLY EVERY 12 HRS NOT-TAKING KEFLEX 500 MG CAPSULE 1 CAPSULE ORALLY EVERY 12 HRS NOT-TAKING POLYTRIM 74560-5.1 UNIT/ML SOLUTION 1 DROP INTO RIGHT EYE OPHTHALMIC FOUR TIMES A DAY MEDICATION LIST REVIEWED AND RECONCILED WITH THE PATIENT PAST MEDICAL HISTORY DM, A1C WAS 6.5 ON BYDUREON AND 72U/D OF LANTUS, PREVIOUSLY WAS HIGH 13. CHRONIC LUNG DISEASE, FOLLOWS WITH DR. WARREN LAST SEEN JULY 2017 GERD, HAS NEVER SEEN A GI DOCTOR, DENIES HAVING HAD ESOPHAGOGASTRODUODENOSCOPY. ARTHRITIS BACK PAIN/NECK PAIN, CHRONIC SHOULDER PAIN AND CHRONIC LEG PAIN FOR WHICH SHE IS ON PERCOCET X 4 YEARS HYPERLIPIDEMIA HYPERTENSION, DENIES HISTORY OF HEART FAILURE, S/P HEART CATH REPORTEDLY NEG 2006, HAS HISTORY OF "SILENT HEART ATTACK" SO FOLLOWS DR. SHETH WHO DID STRESS JULY 2017, SHE GETS RLS FIBROMYALGIA RA, FOLLOWS WITH RHEUMATOLOGY PA IN [facility], PREVIOUSLY ENBREL BEFORE LOSING INSURANCE, LAST SEEN AUGUST 2017 PNEUMONIA OBESITY, LOST 100 POUNDS INTENTIONALLY WITHOUT WEIGHT LOSS SURGERY ANEMIA: UNCERTAIN CAUSE, DIAGNOSIS BY CARDIOLOGY, ON IRON OBSTRUCTIVE SLEEP APNEA, DR. WARREN, USES BIPAP EVERY NIGHT CORONARY ARTERY DISEASE-RACING HEART, SEE DR SHETH ALLERGIES SEASONAL: RED, ITCHY EYES, HEADACHE, NASAL CONGESTION - ALLERGY SURGICAL HISTORY L KNEE REPLACEMENT 2013 [facility]2018 FAMILY HISTORY FATHER: , RHEUMATOID, DIAGNOSED WITH DIABETES, HYPERTENSION, UNSPECIFIED HEART DISEASE, UNSPECIFIED CEREBRAL ARTERY OCCLUSION WITH CEREBRAL INFARCTION MOTHER: , RHEUMATOID, HYPERTENSION, OTHER MALIGNANT NEOPLASM OF UNSPECIFIED SITE, UNSPECIFIED HEART DISEASE MATERNAL GRAND MOTHER: RHEUMATOID 2 SISTER(S) - HEALTHY. 1 SON(S) - HEALTHY. MOTHER: LUNG CA\\\\\\\\\\\\\\\\NOLDER SISTER()- CHF, HEART DISEASE\\\\\\\\\\\\\\\\N. SOCIAL HISTORY GENERAL: TOBACCO USE ARE YOU A:CURRENT SMOKER HOW OFTEN DO YOU SMOKE CIGARETTES?EVERY DAY HOW SOON AFTER YOU WAKE UP DO YOU SMOKE YOUR FIRST CIGARETTE?6-30 MIN HOW MANY CIGARETTES A DAY DO YOU SMOKE?6-10 ARE YOU INTERESTED IN QUITTING?NOT READY TO QUIT PATIENT COUNSELED ON THE DANGERS OF TOBACCO USE AND URGED TO QUIT:12/25/2018 COUNSELED THE PATIENT ON SMOKING EFFECTS, EDUCATION [id number]/29/2019 SMOKING CESSATION INFORMATION GIVEN12/25/2018 HIV / HEP-C SCREENING HIV TEST OFFERED TO PATIENT:YES DATE OFFERED:05/16/2018 TEST ACCEPTED:NO HEP-C TEST OFFERED TO PATIENT:NO REASON:PATIENT DECLINED BROCHURE PROVIDED TO PATIENTYES OTHERS AT HOME: NONE. EDUCATION LEVEL OF EDUCATION:HIGH SCHOOL DIET: REGULAR. LANGUAGE LANGUAGES SPOKEN:MACEDONIAN DOMESTIC VIOLENCE DO YOU FEEL SAFE IN YOUR ENVIRONMENT?YES BMI CARE GOAL FOLLOW-UP ABOVE NORMAL BMI FOLLOW-UPDIETARY MANAGEMENT EDUCATION, GUIDANCE, AND COUNSELING RECREATIONAL DRUG USE DRUG USE?NO EXERCISE: NO REGULAR EXERCISE. 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 N/A HAS THE PATIENT BEEN EDUCATED REGARDING HIS/HER PLAN OF CARE?YES HAS THE PATIENT BEEN EDUCATED REGARDING PAIN, THE RISK FOR PAIN, THE IMPORTANCE OF EFFECTIVE PAIN MANAGEMENT, AND THE PAIN ASSESSMENT PROCESS?YES LATEX QUESTIONNAIRE LATEX ALLERGY : HAVE YOU EVER DEVELOPED ANY TYPE OF REACTION AFTER HANDLING LATEX PRODUCTS SUCH RUBBER GLOVES, CONDOMS, DIAPHRAGMS, BALLOONS, SOCKS, OR UNDERWEAR?NO LATEX ALLERGY : HAVE YOU EVER DEVELOPED ANY TYPE OF REACTION DURING OR AFTER DENTAL APPOINTMENT, VAGINAL/RECTAL EXAMINATION, SURGICAL PROCEDURE, OR ANY OTHER EXPOSURE?NO DATE ASKED : 09/04/2018 LATEX RISK : HAVE YOU EVER HAD ANY DIFFICULTY BREATHING OR HIVES AFTER EATING OR HANDLING ANY FRUITS, OR VEGETABLES; SUCH KIWI, BANANAS, STONE FRUITS, OR CHESTNUTSNO LATEX RISK : DO YOU HAVE A PREVIOUS PERSONAL HISTORY OF MORE THAN NINE SURGERIES, SPINA BIFIDA, OR REPEATED CATHERIZATIONS? NO LATEX RISK : ARE YOU FREQUENTLY EXPOSED TO LATEX PRODUCTS IN YOUR OCCUPATION?NO CAFFEINE CAFFEINE USE?YES HOW OFTEN AND HOW MUCH? 2 CUPS COFFEE PER DAY DAILY BASIS ADVANCE DIRECTIVE ADVANCE DIRECTIVE DISCUSSED WITH PATIENT:YES HCP - SONIA BENNETT (SISTER) [phone] [place]UE [id number] [facility] STATUS: SINGLE. 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 SEXUAL HX HAD SEX IN THE LAST 12 MONTHS (VAGINAL, ORAL, OR ANAL)?NO HAVE YOU EVER HAD AN STD?NO REVIEWED WITH PATIENT 12/25/17 0914 JSREVEIWED WTIH PT 05/29/18 0903 BVREVIEWED WITH PATIENT 08/27/18 1001 JS11/22/18 1249 REVIEWED WITH PT. AD. HOSPITALIZATION/MAJOR DIAGNOSTIC PROCEDURE SURGICALY RELATED PNEUMONIA-RESP FAILURE ON BIPAP 12/28/15 INFLUENZA/COPD 05/08/18 CHEST PAIN - CARDIAC CATHETERIZATION 06/2018 REVIEW OF SYSTEMS REVIEWED BY: PROVIDER: TRINIDAD MOLINA . CONSTITUTIONAL: ANY CHANGE IN YOUR MEDICAL CONDITION? NO . CHILLS NO . FEVER NO . INFECTION: DO YOU HAVE NEW INFECTIONS? NO . DO YOU HAVE HISTORY OF MRSA? NO . MUSCULOSKELETAL: ANY NEW PATTERNS OF PAIN OR NUMBNESS? YES . GASTROENTEROLOGY: ANY NEW CHANGE IN BOWEL CONTROL? NO . GENITOURINARY: ANY NEW CHANGE IN BLADDER CONTROL? NO . IS THERE A CHANCE YOU COULD BE ? NO . HEMATOLOGY/LYMPH: DO YOU TAKE ANY BLOOD THINNERS? (FOR EXAMPLE- COUMADIN, PLAVIX, AGGRENOX, PLATEL, PRADAXA, OR XARELTO) NO . WHEN WAS YOUR LAST DOSE? DATE: TIME: . NEUROLOGY: HAVE YOU FALLEN IN THE PAST 12 MONTHS? NO . ANY NEW EXTREMITY NUMBNESS OR WEAKNESS? YES, LEFT FINGERS . CARDIOLOGY: DO YOU HAVE A PACEMAKER OR DEFIBRILLATOR? NO . RESPIRATORY: HAVE YOU BEEN SICK IN THE PAST WEEK? NO . FEVER NO . FLU LIKE SYMPTOMS? NO . COUGH NO . INTEGUMENTARY: DO YOU HAVE ANY RASHES OR OPEN SORES? NO . ALLERGIC/IMMUNO: ARE YOU ALLERGIC TO IV DYE? NO . ANY NEW ALLERGIES? NO . PSYCHIATRIC: DO YOU HAVE THOUGHTS OF HURTING YOURSELF OR SOMEONE ELSE? NO . ARE YOU ABUSED, NEGLECTED, OR IN AN UNSAFE ENVIRONMENT? NO . ENDOCRINOLOGY: ARE YOU DIABETIC? YES . OTHER: DO YOU NEED ANY PRESCRIPTIONS? YES - OXYCODONE 5/325, LYRICA, MUSCLE RELAXER . IF YES, PLEASE LIST: ____ . ANY NEW PROBLEMS WITH YOUR MEDICATIONS? NO . WHEN DID YOU LAST EAT? ____ . WHEN DID YOU LAST DRINK? ____ . WHAT DID YOU LAST DRINK? ____ . NAME OF PERSON DRIVING YOU HOME? ____ . DO YOU HAVE ANY OTHER QUESTIONS OR CONCERNS NO . VITAL SIGNS WT 236 LBS, HT 66.75 IN, BMI 37.24 INDEX, BP 180/89 MM HG, HR 74 /MIN, RR 18 /MIN, TEMP 96.7 F, OXYGEN SAT % 98%, NA INITIALS SC 10:40, REVIEWED BY: ADI. EXAMINATION GENERAL EXAMINATION: GENERALNO ACUTE DISTRESS, WELL NOURISHED AND HYDRATED. PSYCHAPPROPRIATE MOOD AND AFFECT . LUNGS:CLEAR TO AUSCULTATION BILATERALLY, NO WHEEZES, RHONCHI, RALES. HEART:NO MURMURS, REGULAR RATE AND RHYTHM. ASSESSMENTS INTERVERTEBRAL DISC DISORDERS WITH RADICULOPATHY, LUMBOSACRAL REGION - M51.17 (PRIMARY) TREATMENT INTERVERTEBRAL DISC DISORDERS WITH RADICULOPATHY, LUMBOSACRAL REGION REFILL OXYCODONE-ACETAMINOPHEN TABLET, 5-325 MG, 1 TABLET NEEDED, ORALLY FOR PAIN, EVERY 8 HRS MDD3, 30 DAYS, 85 REFILL LYRICA CAPSULE, 200 MG, 1 CAPSULE, ORALLY, TID MDD=3, 30 DAYS, 90, NOTES: WORKERS COMP START TIZANIDINE HCL TABLET, 2 MG, 1 TABLET NEEDED, ORALLY, THREE TIMES A DAY, 30 DAYS, 90 TABLET CLINICAL NOTES: 58-YEAR-OLD FEMALE IN FOR POST LESI FOLLOW-UP. GIVEN PRESENTING SYMPTOMS AND RESULTS OF PHYSICAL EXAMINATION RECOMMENDED TIZANIDINE 2 MG 3 TIMES A DAY NEEDED FOR MUSCLE SPASM. FURTHER RECOMMENDED FOLLOW-UP IN ONE MONTH TO DETERMINE EFFICACY OF TREATMENT. WE DID DISCUSS POTENTIAL RF PROCEDURE AND PATIENT STATES SHE WILL THINK ON THIS. PATIENT HAS EXPRESSED UNDERSTANDING OF AND WAS IN AGREEMENT WITH TREATMENT PLAN. GIVEN TIME TO ASK QUESTIONS AND EXPRESS CONCERNS., ISTOP REGISTRY REVIEWED AND DEMONSTRATES COMPLLIANCE. (REF # [id number] ) BRINGS IN MEDICATIONS WHICH IS APPROPRIATE FOR WHAT WAS DISPENSED. RECENT URINE TOXICOLOGY REVIEWED. NO UNAUTHORIZED MEDICATIONS. NO ILLICIT SUBSTANCES AND PRESCRIBED MEDICATIONS WERE PRESENT. PREVENTIVE MEDICINE PAIN CLINIC TEACHING: MEDICATIONS NEW MEDICATION TIZANIDINE WRITTEN INSTRUCTIONS PROVIDED TO PT AND MEDICATION USAGE DISCUSSED. VERBALIZED UNDERSTANDING.. PROCEDURE CODES FA211 ESTABILISHED PATIENT [facility] CHARGE DISPOSITION & COMMUNICATION FOLLOW UP 4 WEEKS (REASON: BACK PAIN, NEW MEDICATION) ELECTRONICALLY SIGNED BY SOHEILA MEDRANO ON 02/21/2019 AT 01:19 PM EST DISCLAIMER : THIS IS A VISIT SUMMARY EXTRACTED FROM THE [facility] CHART. IT IS NOT A COPY OF THE [facility] PROGRESS NOTE. PRETTY
== END ==
LOC: M PAIN 10:15
PROVIDERS: ATTEND Family Medicine
DX: M51.17 Intervertebral disc disorders with radiculopathy, lumbosacral region (principal)

== ENCOUNTER → 2019-03-18 | Outpatient (CLI) | payer MEDICARE, MEDICAID ==
[~2019-03-18] MED LIST changes: -OMEP-172 PO; +OMEP1CAP73 PO
--- NOTE | 2019-03-20 03:08 | ECWPNPC ---
PATIENT NAME: ESTHER MAE : 1960 GENDER: FEMALE VISIT DATE: 03/18/2019 DISCHARGE DATE: 03/18/19 1118 VISIT LOCKED DATE TIME: PHYSICIAN: FREDERICK MILES RESOURCE: FREDERICK MILES REASON FOR APPOINTMENT 1. BACK/NEW MED HISTORY OF PRESENT ILLNESS HISTORY OF PRESENT ILLNESS: PAIN THE PATIENT DESCRIBES THE PAIN... 58-YEAR-OLD FEMALE IN FOR CHRONIC PAIN FOLLOW-UP. SHE RATES HER PAIN CURRENTLY AT A 9 OUT OF 10 AND DESCRIBES IT ACHING, SHARP, BURNING, STABBING, SHOOTING, AND TENDER. PATIENT FEELS HER CURRENT MEDICATIONS ARE NOT HELPING TO ALLEVIATE HER PAIN. FALL RISK SCREENING: SCREENING :NO FALLS REPORTED IN THE LAST YEAR CURRENT MEDICATIONS TAKING IRON 28 MG TABLET 1 TABLET ORALLY ONCE A DAY TAKING INCRUSE ELLIPTA 62.5 MCG/INH AEROSOL POWDER BREATH ACTIVATED 1 PUFF INHALATION ONCE A DAY TAKING IPRATROPIUM-ALBUTEROL 0.5-2.5 (3) MG/3ML SOLUTION 3 ML INHALATION EVERY 4 HRS NEEDED TAKING PROAIR HFA 108 (90 BASE) MCG/ACT AEROSOL SOLUTION 2 PUFFS NEEDED INHALATION EVERY 6 HRS TAKING ASPIR-81 81 MG TABLET DELAYED RELEASE 1 TABLET ORALLY ONCE A DAY TAKING CLOTRIMAZOLE 1 % CREAM 1 APPLICATION TO AFFECTED AREA OF LEFT FOOT EXTERNALLY TWICE A DAY NEEDED TAKING MISC. DEVICES - MISCELLANEOUS BP CUFF, CHECK ONCE A DAY, DX: I10. TAKING GLUCOMETER E11.9 CHECK ACHS TAKING BLOOD GLUCOSE TEST - STRIP E11.9 CHECK ACHS IN VITRO DIRECTED TAKING LANCETS - MISCELLANEOUS E11.9 CHECK ACHS DIRECTED TAKING PRAVASTATIN SODIUM 80 MG TABLET 1 TABLET ORALLY ONCE A DAY TAKING EZETIMIBE 10 MG TABLET 1 TABLET ORALLY ONCE A DAY TAKING METOPROLOL TARTRATE 25 MG TABLET 1 TABLET WITH FOOD ORALLY TWICE A DAY TAKING CETIRIZINE HCL 10 MG TABLET 1 TABLET ORALLY ONCE A DAY TAKING TRIAMCINOLONE ACETONIDE 0.1 % CREAM 1 APPLICATION TO AFFECTED AREA EXTERNALLY TWICE A DAY TAKING JARDIANCE 10 MG TABLET 1 TABLET ORALLY ONCE A DAY TAKING METFORMIN HCL 850 MG TABLET 1 TABLET WITH A MEAL ORALLY BID TAKING LEVEMIR 100 UNIT/ML SOLUTION 15U IN AM AND 15U IN PM SUBCUTANEOUS DIRECTED TAKING BYDUREON 2 MG PEN-INJECTOR 1 INJECTION SUBCUTANEOUS WEEKLY TAKING ROPINIROLE HCL 0.5 MG TABLET 2 TAB ORALLY AT BEDTIME TAKING SPIRONOLACTONE 25 MG TABLET 1 TABLET ORALLY ONCE A DAY TAKING BUPROPION HCL ER (SR) 150 MG TABLET EXTENDED RELEASE 12 HOUR 1 TABLET ORALLY TWICE A DAY TAKING PANTOPRAZOLE SODIUM 40 MG TABLET DELAYED RELEASE TAKE ONE TABLET BY MOUTH ONCE A DAY (STOP OMEPRAZOLE) TAKING DULOXETINE HCL 60 MG CAPSULE DELAYED RELEASE PARTICLES 1 CAPSULE ORALLY ONCE A DAY TAKING OXYCODONE-ACETAMINOPHEN 5-325 MG TABLET 1 TABLET NEEDED ORALLY FOR PAIN EVERY 8 HRS MDD3 TAKING LYRICA 200 MG CAPSULE 1 CAPSULE ORALLY TID MDD=3, NOTES: WORKERS COMP TAKING TIZANIDINE HCL 2 MG TABLET 1 TABLET NEEDED ORALLY THREE TIMES A DAY TAKING INDOMETHACIN 50 MG CAPSULE 1 CAPSULE WITH FOOD OR MILK ORALLY NEEDED FOR PAIN TWICE A DAY TAKING NOVOLOG 100 UNIT/ML SOLUTION DIRECTED E11.9 SUBCUTANEOUS TID CC, NOTES: SLIDING SCALE: <=150: 0; 151-200: 3; 201-250: 6; 251-300: 9; 301-350: 12; 351-400: 15; MORE THAN 400: CALL SERVICE GREETER PHYSICIAN NOT-TAKING ENBREL SURECLICK 50 MG/ML SOLUTION AUTO-INJECTOR 1 ML SUBCUTANEOUS WEEKLY NOT-TAKING LOSARTAN POTASSIUM-HCTZ 50-12.5 MG TABLET 1 TABLET ORALLY ONCE A DAY NOT-TAKING DEBROX 6.5 % SOLUTION 5 DROPS INTO LEFT AND RIGHT EARS OTIC TWICE A DAY NOT-TAKING MACROBID 100 MG CAPSULE 1 CAPSULE WITH FOOD ORALLY EVERY 12 HRS NOT-TAKING KEFLEX 500 MG CAPSULE 1 CAPSULE ORALLY EVERY 12 HRS NOT-TAKING POLYTRIM 71749-0.1 UNIT/ML SOLUTION 1 DROP INTO RIGHT EYE OPHTHALMIC FOUR TIMES A DAY MEDICATION LIST REVIEWED AND RECONCILED WITH THE PATIENT PAST MEDICAL HISTORY DM, A1C WAS 6.5 ON BYDUREON AND 72U/D OF LANTUS, PREVIOUSLY WAS HIGH 13. CHRONIC LUNG DISEASE, FOLLOWS WITH DR. WARREN LAST SEEN JULY 2017 GERD, HAS NEVER SEEN A GI DOCTOR, DENIES HAVING HAD ESOPHAGOGASTRODUODENOSCOPY. ARTHRITIS BACK PAIN/NECK PAIN, CHRONIC SHOULDER PAIN AND CHRONIC LEG PAIN FOR WHICH SHE IS ON PERCOCET X 4 YEARS HYPERLIPIDEMIA HYPERTENSION, DENIES HISTORY OF HEART FAILURE, S/P HEART CATH REPORTEDLY NEG 2006, HAS HISTORY OF "SILENT HEART ATTACK" SO FOLLOWS DR. SHETH WHO DID STRESS JULY 2017, SHE GETS RLS FIBROMYALGIA RA, FOLLOWS WITH RHEUMATOLOGY PA IN [facility], PREVIOUSLY ENBREL BEFORE LOSING INSURANCE, LAST SEEN AUGUST 2017 PNEUMONIA OBESITY, LOST 100 POUNDS INTENTIONALLY WITHOUT WEIGHT LOSS SURGERY ANEMIA: UNCERTAIN CAUSE, DIAGNOSIS BY CARDIOLOGY, ON IRON OBSTRUCTIVE SLEEP APNEA, DR. WARREN, USES BIPAP EVERY NIGHT CORONARY ARTERY DISEASE-RACING HEART, SEE DR SHETH ALLERGIES SEASONAL: RED, ITCHY EYES, HEADACHE, NASAL CONGESTION - ALLERGY SURGICAL HISTORY L KNEE REPLACEMENT 2013 CHOLECYSTECTOMY LEFT SHOULDER REPAIR [facility] CARDIAC CATHETERIZATION 06/2018 FAMILY HISTORY FATHER: , RHEUMATOID, DIAGNOSED WITH DIABETES, HYPERTENSION, UNSPECIFIED HEART DISEASE, UNSPECIFIED CEREBRAL ARTERY OCCLUSION WITH CEREBRAL INFARCTION MOTHER: , RHEUMATOID, UNSPECIFIED HEART DISEASE, OTHER MALIGNANT NEOPLASM OF UNSPECIFIED SITE, HYPERTENSION MATERNAL GRAND MOTHER: RHEUMATOID 2 SISTER(S) - HEALTHY. 1 SON(S) - HEALTHY. MOTHER: LUNG CA\\\\\\\\\\\\\\\\NOLDER SISTER()- CHF, HEART DISEASE\\\\\\\\\\\\\\\\N. SOCIAL HISTORY GENERAL: TOBACCO USE ARE YOU A:CURRENT SMOKER ARE YOU INTERESTED IN QUITTING?READY TO QUIT PT CURRENTLY USING WELLBUTRIN TO HELP QUIT HOW MANY CIGARETTES A DAY DO YOU SMOKE?5 OR LESS HOW SOON AFTER YOU WAKE UP DO YOU SMOKE YOUR FIRST CIGARETTE?6-30 MIN HOW OFTEN DO YOU SMOKE CIGARETTES?EVERY DAY PATIENT COUNSELED ON THE DANGERS OF TOBACCO USE AND URGED TO QUIT:03/18/2019 SMOKING CESSATION INFORMATION GIVEN12/25/2018 HIV / HEP-C SCREENING HIV TEST OFFERED TO PATIENT:YES DATE OFFERED:05/16/2018 TEST ACCEPTED:NO HEP-C TEST OFFERED TO PATIENT:NO REASON:PATIENT DECLINED BROCHURE PROVIDED TO PATIENTYES OTHERS AT HOME: NONE. EDUCATION LEVEL OF EDUCATION:HIGH SCHOOL DIET: REGULAR. LANGUAGE LANGUAGES SPOKEN:MACANESE DOMESTIC VIOLENCE DO YOU FEEL SAFE IN YOUR ENVIRONMENT?YES BMI CARE GOAL FOLLOW-UP ABOVE NORMAL BMI FOLLOW-UPDIETARY MANAGEMENT EDUCATION, GUIDANCE, AND COUNSELING RECREATIONAL DRUG USE DRUG USE?NO EXERCISE: NO REGULAR EXERCISE. LEARNING BARRIERS / SPECIAL NEEDS CHANGE FROM LAST VISIT?NO BARRIERS TO LEARNING?NO HEARING IMPAIRED?NO VISION IMPAIRED?NO COGNITIVELY IMPAIRED?NO READINESS TO LEARN?YES LEARNING PREFERENCES?NO LEARNING CAPABILITIES PRESENT?YES EMOTIONAL BARRIERS?NO SPECIAL DEVICES?YES :OTHER BIPAP BACK OFFICE MEDICAL ASSISTANT NEEDED?NO PAIN CLINIC PFS, CLERGY, PUBLIC HEALTH REFERRALS PFS REFERRAL NEEDED?NO CLERGY REFERRAL NEEDED?NO PUBLIC HEALTH REFERRAL NEEDED?NO WAS THE PROVIDER NOTIFIED OF ANY PERTINENT INFO? N/A HAS THE PATIENT BEEN EDUCATED REGARDING HIS/HER PLAN OF CARE?YES HAS THE PATIENT BEEN EDUCATED REGARDING PAIN, THE RISK FOR PAIN, THE IMPORTANCE OF EFFECTIVE PAIN MANAGEMENT, AND THE PAIN ASSESSMENT PROCESS?YES LATEX QUESTIONNAIRE LATEX ALLERGY : HAVE YOU EVER DEVELOPED ANY TYPE OF REACTION AFTER HANDLING LATEX PRODUCTS SUCH RUBBER GLOVES, CONDOMS, DIAPHRAGMS, BALLOONS, SOCKS, OR UNDERWEAR?NO LATEX ALLERGY : HAVE YOU EVER DEVELOPED ANY TYPE OF REACTION DURING OR AFTER DENTAL APPOINTMENT, VAGINAL/RECTAL EXAMINATION, SURGICAL PROCEDURE, OR ANY OTHER EXPOSURE?NO DATE ASKED : 09/04/2018 LATEX RISK : HAVE YOU EVER HAD ANY DIFFICULTY BREATHING OR HIVES AFTER EATING OR HANDLING ANY FRUITS, OR VEGETABLES; SUCH KIWI, BANANAS, STONE FRUITS, OR CHESTNUTSNO LATEX RISK : DO YOU HAVE A PREVIOUS PERSONAL HISTORY OF MORE THAN NINE SURGERIES, SPINA BIFIDA, OR REPEATED CATHERIZATIONS? NO LATEX RISK : ARE YOU FREQUENTLY EXPOSED TO LATEX PRODUCTS IN YOUR OCCUPATION?NO CAFFEINE CAFFEINE USE?YES HOW OFTEN AND HOW MUCH? 2 CUPS COFFEE PER DAY DAILY BASIS ADVANCE DIRECTIVE ADVANCE DIRECTIVE DISCUSSED WITH PATIENT:YES HCP - SONIA BENNETT (SISTER) [phone] SPIRITISM [id number] [facility]ITAL STATUS: SINGLE. 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 SEXUAL HX HAD SEX IN THE LAST 12 MONTHS (VAGINAL, ORAL, OR ANAL)?NO HAVE YOU EVER HAD AN STD?NO REVIEWED WITH PATIENT 12/25/17 0914 JSREVEIWED WTIH PT 05/29/18 0903 BVREVIEWED WITH PATIENT 08/27/18 1001 JS11/22/18 1249 REVIEWED WITH PT. AD REVIEWED WITH PATIENT 03/18/19 1036 BV. HOSPITALIZATION/MAJOR DIAGNOSTIC PROCEDURE SURGICALY RELATED PNEUMONIA-RESP FAILURE ON BIPAP 12/28/15 INFLUENZA/COPD 05/08/18 CHEST PAIN - CARDIAC CATHETERIZATION 06/2018 REVIEW OF SYSTEMS REVIEWED BY: PROVIDER: TRINIDAD MOLINA . CONSTITUTIONAL: ANY CHANGE IN YOUR MEDICAL CONDITION? NO . CHILLS NO . FEVER NO . INFECTION: DO YOU HAVE NEW INFECTIONS? NO . DO YOU HAVE HISTORY OF MRSA? NO . MUSCULOSKELETAL: ANY NEW PATTERNS OF PAIN OR NUMBNESS? NO . GASTROENTEROLOGY: ANY NEW CHANGE IN BOWEL CONTROL? NO . GENITOURINARY: ANY NEW CHANGE IN BLADDER CONTROL? NO . IS THERE A CHANCE YOU COULD BE ? NO . HEMATOLOGY/LYMPH: DO YOU TAKE ANY BLOOD THINNERS? (FOR EXAMPLE- COUMADIN, PLAVIX, AGGRENOX, PLATEL, PRADAXA, OR XARELTO) NO . WHEN WAS YOUR LAST DOSE? DATE: TIME: . NEUROLOGY: HAVE YOU FALLEN IN THE PAST 12 MONTHS? NO . ANY NEW EXTREMITY NUMBNESS OR WEAKNESS? NO . CARDIOLOGY: DO YOU HAVE A PACEMAKER OR DEFIBRILLATOR? NO . RESPIRATORY: HAVE YOU BEEN SICK IN THE PAST WEEK? NO . FEVER NO . FLU LIKE SYMPTOMS? NO . COUGH NO . INTEGUMENTARY: DO YOU HAVE ANY RASHES OR OPEN SORES? NO . ALLERGIC/IMMUNO: ARE YOU ALLERGIC TO IV DYE? NO . ANY NEW ALLERGIES? NO . PSYCHIATRIC: DO YOU HAVE THOUGHTS OF HURTING YOURSELF OR SOMEONE ELSE? NO . ARE YOU ABUSED, NEGLECTED, OR IN AN UNSAFE ENVIRONMENT? NO . ENDOCRINOLOGY: ARE YOU DIABETIC? NO . OTHER: DO YOU NEED ANY PRESCRIPTIONS? NO . IF YES, PLEASE LIST: ____ . ANY NEW PROBLEMS WITH YOUR MEDICATIONS? NO . WHEN DID YOU LAST EAT? ____ . WHEN DID YOU LAST DRINK? ____ . WHAT DID YOU LAST DRINK? ____ . NAME OF PERSON DRIVING YOU HOME? ____ . DO YOU HAVE ANY OTHER QUESTIONS OR CONCERNS NO . VITAL SIGNS WT 242.8 LBS, HT 66.75 IN, BMI 38.31 INDEX, BP 188/88 MM HG, HR 64 /MIN, RR 18 /MIN, TEMP 97.2 F, OXYGEN SAT % 97%, SAFE IN ENV? (Y/N) YES, NA INITIALS 1035, REVIEWED BY: BV. EXAMINATION GENERAL EXAMINATION: GENERALNO ACUTE DISTRESS, WELL NOURISHED AND HYDRATED. PSYCHAPPROPRIATE MOOD AND AFFECT . LUNGS:CLEAR TO AUSCULTATION BILATERALLY, NO WHEEZES, RHONCHI, RALES. HEART:NO MURMURS, REGULAR RATE AND RHYTHM. ASSESSMENTS CHRONIC PRESCRIPTION OPIATE USE - Z79.899 (PRIMARY) INTERVERTEBRAL DISC DISORDERS WITH RADICULOPATHY, LUMBAR REGION - M51.16 TREATMENT CHRONIC PRESCRIPTION OPIATE USE INCREASE OXYCODONE-ACETAMINOPHEN TABLET, 5-325 MG, 1 TABLET NEEDED, ORALLY FOR PAIN, EVERY 8 HRS MDD4, 30 DAYS, 120 CLINICAL NOTES: 58-YEAR-OLD FEMALE IN FOR CHRONIC PAIN FOLLOW-UP. GIVEN PRESENTING SYMPTOMS AND RESULTS OF PHYSICAL EXAMINATION RECOMMENDED INCREASING MDD TO 4 TIMES DAILY WITH FOLLOW-UP IN ONE MONTH TO DETERMINE EFFICACY OF TREATMENT. PATIENT HAS EXPRESSED UNDERSTANDING OF AND WAS IN AGREEMENT WITH TREATMENT PLAN. GIVEN TIME TO ASK QUESTIONS AND EXPRESS CONCERNS., ISTOP REGISTRY REVIEWED AND DEMONSTRATES COMPLLIANCE. (REF # [id number] ) BRINGS IN MEDICATIONS WHICH IS APPROPRIATE FOR WHAT WAS DISPENSED. RECENT URINE TOXICOLOGY REVIEWED. NO UNAUTHORIZED MEDICATIONS. NO ILLICIT SUBSTANCES AND PRESCRIBED MEDICATIONS WERE PRESENT. PROCEDURE CODES [id number] ESTABILISHED PATIENT [facility] CHARGE DISPOSITION & COMMUNICATION FOLLOW UP 4 WEEKS (REASON: MEDICATION INCREASE AND LOW BACK PAIN) ELECTRONICALLY SIGNED BY SOHEILA MEDRANO ON 03/19/2019 AT 08:41 AM EST DISCLAIMER : THIS IS A VISIT SUMMARY EXTRACTED FROM THE [employer] SPINE CHART. IT IS NOT A COPY OF THE [employer] PROGRESS NOTE. PRETTY
== END ==
LOC: M PAIN 10:30
PROVIDERS: ATTEND Family Medicine
DX: M51.16 Intervertebral disc disorders with radiculopathy, lumbar region (principal); G89.29 Other chronic pain; E11.9 Type 2 diabetes mellitus without complications; E78.5 Hyperlipidemia, unspecified; I10 Essential (primary) hypertension; G25.81 Restless legs syndrome; M79.7 Fibromyalgia; D50.9 Iron deficiency anemia, unspecified; G47.33 Obstructive sleep apnea (adult) (pediatric); Z96.652 Presence of left artificial knee joint; F17.210 Nicotine dependence, cigarettes, uncomplicated; Z79.4 Long term (current) use of insulin; Z79.51 Long term (current) use of inhaled steroids; Z79.82 Long term (current) use of aspirin; Z79.899 Other long term (current) drug therapy

== ENCOUNTER → 2019-03-22 | Outpatient (CLI) | payer OTHER, MEDICAID, MEDICARE ==
--- NOTE | 2019-03-26 04:07 | ECWPNPC ---
PATIENT NAME: ESTHER MAE : 1960 GENDER: FEMALE VISIT DATE: 03/22/2019 DISCHARGE DATE: 03/22/19 1129 VISIT LOCKED DATE TIME: PHYSICIAN: FREDERICK MILES RESOURCE: FREDERICK MILES REASON FOR APPOINTMENT 1. 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 THE PATIENT SAYS THE PAIN IS SEVERE CONTINUES TO PERSIST IN BOTH AREAS THE PATIENT SAYS THE PAIN IS AFFECTING HER ABILITY TO PERFORM HER DAILY ACTIVITIES SHE SAYS SHE SHE CAN NO LONGER DO HOUSEWORK SUCH VACUUMING AND CLEANING THE BATHROOM AND THAT SHE HAD TO HIRE A SEO ANALYST TO TAKE CARE OF HER HOME TASKS. SHE PRESENTS TODAY FOR WORKER'S COMP. CHRONIC PAIN FOLLOW-UP RATING HER PAIN CURRENTLY AT A 9 OUT OF 10 AND DESCRIBING IT ACHING, SHARP, STABBING, AND SHOOTING. FALL RISK SCREENING: SCREENING :NO FALLS REPORTED IN THE LAST YEAR CURRENT MEDICATIONS TAKING IRON 28 MG TABLET 1 TABLET ORALLY ONCE A DAY TAKING INCRUSE ELLIPTA 62.5 MCG/INH AEROSOL POWDER BREATH ACTIVATED 1 PUFF INHALATION ONCE A DAY TAKING IPRATROPIUM-ALBUTEROL 0.5-2.5 (3) MG/3ML SOLUTION 3 ML INHALATION EVERY 4 HRS NEEDED TAKING PROAIR HFA 108 (90 BASE) MCG/ACT AEROSOL SOLUTION 2 PUFFS NEEDED INHALATION EVERY 6 HRS TAKING ASPIR-81 81 MG TABLET DELAYED RELEASE 1 TABLET ORALLY ONCE A DAY TAKING CLOTRIMAZOLE 1 % CREAM 1 APPLICATION TO AFFECTED AREA OF LEFT FOOT EXTERNALLY TWICE A DAY NEEDED TAKING MISC. DEVICES - MISCELLANEOUS BP CUFF, CHECK ONCE A DAY, DX: I10. TAKING GLUCOMETER E11.9 CHECK ACHS TAKING BLOOD GLUCOSE TEST - STRIP E11.9 CHECK ACHS IN VITRO DIRECTED TAKING LANCETS - MISCELLANEOUS E11.9 CHECK ACHS DIRECTED TAKING PRAVASTATIN SODIUM 80 MG TABLET 1 TABLET ORALLY ONCE A DAY TAKING CETIRIZINE HCL 10 MG TABLET 1 TABLET ORALLY ONCE A DAY TAKING TRIAMCINOLONE ACETONIDE 0.1 % CREAM 1 APPLICATION TO AFFECTED AREA EXTERNALLY TWICE A DAY TAKING BUPROPION HCL ER (SR) 150 MG TABLET EXTENDED RELEASE 12 HOUR 1 TABLET ORALLY TWICE A DAY TAKING PANTOPRAZOLE SODIUM 40 MG TABLET DELAYED RELEASE TAKE ONE TABLET BY MOUTH ONCE A DAY (STOP OMEPRAZOLE) TAKING DULOXETINE HCL 60 MG CAPSULE DELAYED RELEASE PARTICLES 1 CAPSULE ORALLY ONCE A DAY TAKING LYRICA 200 MG CAPSULE 1 CAPSULE ORALLY TID MDD=3, NOTES: WORKERS COMP TAKING INDOMETHACIN 50 MG CAPSULE 1 CAPSULE WITH FOOD OR MILK ORALLY NEEDED FOR PAIN TWICE A DAY TAKING NOVOLOG 100 UNIT/ML SOLUTION DIRECTED E11.9 SUBCUTANEOUS TID CC, NOTES: SLIDING SCALE: <=150: 0; 151-200: 3; 201-250: 6; 251-300: 9; 301-350: 12; 351-400: 15; MORE THAN 400: CALL ICT DEVELOPMENT MANAGER PHYSICIAN TAKING OXYCODONE-ACETAMINOPHEN 5-325 MG TABLET 1 TABLET NEEDED ORALLY FOR PAIN EVERY 8 HRS MDD4 TAKING CYCLOBENZAPRINE HCL 10 MG TABLET 1 TABLET 1 TO 2 HOURS BEFORE BEDTIME ORALLY ONCE A DAY, NOTES: [facility] TAKING JARDIANCE 25 MG TABLET 1 TABLET ORALLY ONCE A DAY, NOTES: DOSE INCREASE TAKING TRULICITY 0.75 MG/0.5ML SOLUTION PEN-INJECTOR DIRECTED SUBCUTANEOUS WEEKLY, NOTES: STOP BYDUREON TAKING METFORMIN HCL 850 MG TABLET 1 TABLET WITH A MEAL ORALLY BID TAKING LEVEMIR 100 UNIT/ML SOLUTION 15U IN AM AND 15U IN PM SUBCUTANEOUS DIRECTED TAKING METOPROLOL TARTRATE 25 MG TABLET 1 TABLET WITH FOOD ORALLY TWICE A DAY TAKING ROPINIROLE HCL 0.5 MG TABLET 2 TAB ORALLY AT BEDTIME TAKING SPIRONOLACTONE 25 MG TABLET 1 TABLET ORALLY ONCE A DAY NOT-TAKING EZETIMIBE 10 MG TABLET 1 TABLET ORALLY ONCE A DAY NOT-TAKING TIZANIDINE HCL 2 MG TABLET 1 TABLET NEEDED ORALLY THREE TIMES A DAY NOT-TAKING ENBREL SURECLICK 50 MG/ML SOLUTION AUTO-INJECTOR 1 ML SUBCUTANEOUS WEEKLY NOT-TAKING LOSARTAN POTASSIUM-HCTZ 50-12.5 MG TABLET 1 TABLET ORALLY ONCE A DAY NOT-TAKING DEBROX 6.5 % SOLUTION 5 DROPS INTO LEFT AND RIGHT EARS OTIC TWICE A DAY NOT-TAKING MACROBID 100 MG CAPSULE 1 CAPSULE WITH FOOD ORALLY EVERY 12 HRS NOT-TAKING KEFLEX 500 MG CAPSULE 1 CAPSULE ORALLY EVERY 12 HRS NOT-TAKING POLYTRIM 96766-4.1 UNIT/ML SOLUTION 1 DROP INTO RIGHT EYE OPHTHALMIC FOUR TIMES A DAY MEDICATION LIST REVIEWED AND RECONCILED WITH THE PATIENT PAST MEDICAL HISTORY DM, A1C WAS 6.5 ON BYDUREON AND 72U/D OF LANTUS, PREVIOUSLY WAS HIGH 13. CHRONIC LUNG DISEASE, FOLLOWS WITH DR. WARREN LAST SEEN JULY 2017 GERD, HAS NEVER SEEN A GI DOCTOR, DENIES HAVING HAD ESOPHAGOGASTRODUODENOSCOPY. ARTHRITIS BACK PAIN/NECK PAIN, CHRONIC SHOULDER PAIN AND CHRONIC LEG PAIN FOR WHICH SHE IS ON PERCOCET X 4 YEARS HYPERLIPIDEMIA HYPERTENSION, DENIES HISTORY OF HEART FAILURE, S/P HEART CATH REPORTEDLY NEG 2006, HAS HISTORY OF "SILENT HEART ATTACK" SO FOLLOWS DR. SHETH WHO DID STRESS JULY 2017, SHE GETS RLS FIBROMYALGIA RA, FOLLOWS WITH RHEUMATOLOGY PA IN [facility], PREVIOUSLY ENBREL BEFORE LOSING INSURANCE, LAST SEEN AUGUST 2017 PNEUMONIA OBESITY, LOST 100 POUNDS INTENTIONALLY WITHOUT WEIGHT LOSS SURGERY ANEMIA: UNCERTAIN CAUSE, DIAGNOSIS BY CARDIOLOGY, ON IRON OBSTRUCTIVE SLEEP APNEA, DR. WARREN, USES BIPAP EVERY NIGHT CORONARY ARTERY DISEASE-RACING HEART, SEE DR SHETH ALLERGIES SEASONAL: RED, ITCHY EYES, HEADACHE, NASAL CONGESTION - ALLERGY SURGICAL HISTORY L KNEE REPLACEMENT 2013 CHO[facility]OM[facility]2018 FAMILY HISTORY FATHER: , RHEUMATOID, DIAGNOSED WITH DIABETES, HYPERTENSION, UNSPECIFIED HEART DISEASE, UNSPECIFIED CEREBRAL ARTERY OCCLUSION WITH CEREBRAL INFARCTION MOTHER: , RHEUMATOID, HYPERTENSION, UNSPECIFIED HEART DISEASE, OTHER MALIGNANT NEOPLASM OF UNSPECIFIED SITE MATERNAL GRAND MOTHER: RHEUMATOID 2 SISTER(S) - HEALTHY. 1 SON(S) - HEALTHY. MOTHER: LUNG CA\\\\\\\\\\\\\\\\NOLDER SISTER()- CHF, HEART DISEASE\\\\\\\\\\\\\\\\N. SOCIAL HISTORY GENERAL: TOBACCO USE ARE YOU A:CURRENT SMOKER HOW OFTEN DO YOU SMOKE CIGARETTES?EVERY DAY HOW SOON AFTER YOU WAKE UP DO YOU SMOKE YOUR FIRST CIGARETTE?6-30 MIN HOW MANY CIGARETTES A DAY DO YOU SMOKE?5 OR LESS ARE YOU INTERESTED IN QUITTING?READY TO QUIT PT CURRENTLY USING WELLBUTRIN TO HELP QUIT PATIENT COUNSELED ON THE DANGERS OF TOBACCO USE AND URGED TO QUIT:03/18/2019 SMOKING CESSATION INFORMATION GIVEN12/25/2018 HIV / HEP-C SCREENING HIV TEST OFFERED TO PATIENT:YES DATE OFFERED:05/16/2018 TEST ACCEPTED:NO HEP-C TEST OFFERED TO PATIENT:NO REASON:PATIENT DECLINED BROCHURE PROVIDED TO PATIENTYES OTHERS AT HOME: NONE. EDUCATION LEVEL OF EDUCATION:HIGH SCHOOL DIET: REGULAR. LANGUAGE LANGUAGES SPOKEN:CHINESE DOMESTIC VIOLENCE DO YOU FEEL SAFE IN YOUR ENVIRONMENT?YES BMI CARE GOAL FOLLOW-UP ABOVE NORMAL BMI FOLLOW-UPDIETARY MANAGEMENT EDUCATION, GUIDANCE, AND COUNSELING RECREATIONAL DRUG USE DRUG USE?NO EXERCISE: NO REGULAR EXERCISE. LEARNING BARRIERS / SPECIAL NEEDS CHANGE FROM LAST VISIT?NO BARRIERS TO LEARNING?NO HEARING IMPAIRED?NO VISION IMPAIRED?NO COGNITIVELY IMPAIRED?NO READINESS TO LEARN?YES LEARNING PREFERENCES?NO LEARNING CAPABILITIES PRESENT?YES EMOTIONAL BARRIERS?NO SPECIAL DEVICES?YES :OTHER BIPAP HIGHWAY LANDSCAPE ARCHITECT NEEDED?NO PAIN CLINIC PFS, CLERGY, PUBLIC HEALTH REFERRALS PFS REFERRAL NEEDED?NO CLERGY REFERRAL NEEDED?NO PUBLIC HEALTH REFERRAL NEEDED?NO WAS THE PROVIDER NOTIFIED OF ANY PERTINENT INFO? N/A HAS THE PATIENT BEEN EDUCATED REGARDING HIS/HER PLAN OF CARE?YES HAS THE PATIENT BEEN EDUCATED REGARDING PAIN, THE RISK FOR PAIN, THE IMPORTANCE OF EFFECTIVE PAIN MANAGEMENT, AND THE PAIN ASSESSMENT PROCESS?YES LATEX QUESTIONNAIRE LATEX ALLERGY : HAVE YOU EVER DEVELOPED ANY TYPE OF REACTION AFTER HANDLING LATEX PRODUCTS SUCH RUBBER GLOVES, CONDOMS, DIAPHRAGMS, BALLOONS, SOCKS, OR UNDERWEAR?NO LATEX ALLERGY : HAVE YOU EVER DEVELOPED ANY TYPE OF REACTION DURING OR AFTER DENTAL APPOINTMENT, VAGINAL/RECTAL EXAMINATION, SURGICAL PROCEDURE, OR ANY OTHER EXPOSURE?NO DATE ASKED : 09/04/2018 LATEX RISK : HAVE YOU EVER HAD ANY DIFFICULTY BREATHING OR HIVES AFTER EATING OR HANDLING ANY FRUITS, OR VEGETABLES; SUCH KIWI, BANANAS, STONE FRUITS, OR CHESTNUTSNO LATEX RISK : DO YOU HAVE A PREVIOUS PERSONAL HISTORY OF MORE THAN NINE SURGERIES, SPINA BIFIDA, OR REPEATED CATHERIZATIONS? NO LATEX RISK : ARE YOU FREQUENTLY EXPOSED TO LATEX PRODUCTS IN YOUR OCCUPATION?NO CAFFEINE CAFFEINE USE?YES HOW OFTEN AND HOW MUCH? 2 CUPS COFFEE PER DAY DAILY BASIS ADVANCE DIRECTIVE ADVANCE DIRECTIVE DISCUSSED WITH PATIENT:YES HCP - SONIA BENNETT (SISTER) [phone] MUSLIM [id number] [facility] MAR[facility] STATUS: SINGLE. 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 SEXUAL HX HAD SEX IN THE LAST 12 MONTHS (VAGINAL, ORAL, OR ANAL)?NO HAVE YOU EVER HAD AN STD?NO REVIEWED WITH PATIENT 12/25/17 0914 JSREVEIWED WTIH PT 05/29/18 0903 BVREVIEWED WITH PATIENT 08/27/18 1001 JS11/22/18 1249 REVIEWED WITH PT. AD REVIEWED WITH PATIENT 03/18/19 1036 BV. HOSPITALIZATION/MAJOR DIAGNOSTIC PROCEDURE SURGICALY RELATED PNEUMONIA-RESP FAILURE ON BIPAP 12/28/15 INFLUENZA/COPD 05/08/18 CHEST PAIN - CARDIAC CATHETERIZATION 06/2018 REVIEW OF SYSTEMS REVIEWED BY: PROVIDER: TRINIDAD PARNELL-Ray . CONSTITUTIONAL: ANY CHANGE IN YOUR MEDICAL CONDITION? NO . CHILLS NO . FEVER NO . INFECTION: DO YOU HAVE NEW INFECTIONS? NO . DO YOU HAVE HISTORY OF MRSA? NO . MUSCULOSKELETAL: ANY NEW PATTERNS OF PAIN OR NUMBNESS? NO . GASTROENTEROLOGY: ANY NEW CHANGE IN BOWEL CONTROL? NO . GENITOURINARY: ANY NEW CHANGE IN BLADDER CONTROL? NO . IS THERE A CHANCE YOU COULD BE ? NO . HEMATOLOGY/LYMPH: DO YOU TAKE ANY BLOOD THINNERS? (FOR EXAMPLE- COUMADIN, PLAVIX, AGGRENOX, PLATEL, PRADAXA, OR XARELTO) NO . WHEN WAS YOUR LAST DOSE? DATE: TIME: . NEUROLOGY: HAVE YOU FALLEN IN THE PAST 12 MONTHS? NO . ANY NEW EXTREMITY NUMBNESS OR WEAKNESS? NO . CARDIOLOGY: DO YOU HAVE A PACEMAKER OR DEFIBRILLATOR? NO . RESPIRATORY: HAVE YOU BEEN SICK IN THE PAST WEEK? NO . FEVER NO . FLU LIKE SYMPTOMS? NO . COUGH NO . INTEGUMENTARY: DO YOU HAVE ANY RASHES OR OPEN SORES? NO . ALLERGIC/IMMUNO: ARE YOU ALLERGIC TO IV DYE? NO . ANY NEW ALLERGIES? NO . PSYCHIATRIC: DO YOU HAVE THOUGHTS OF HURTING YOURSELF OR SOMEONE ELSE? NO . ARE YOU ABUSED, NEGLECTED, OR IN AN UNSAFE ENVIRONMENT? NO . ENDOCRINOLOGY: ARE YOU DIABETIC? YES . OTHER: DO YOU NEED ANY PRESCRIPTIONS? NO . IF YES, PLEASE LIST: ____ . ANY NEW PROBLEMS WITH YOUR MEDICATIONS? NO . WHEN DID YOU LAST EAT? ____ . WHEN DID YOU LAST DRINK? ____ . WHAT DID YOU LAST DRINK? ____ . NAME OF PERSON DRIVING YOU HOME? ____ . DO YOU HAVE ANY OTHER QUESTIONS OR CONCERNS NO . VITAL SIGNS WT 242.4 LBS, HT 66.75 IN, BMI 38.25 INDEX, BP 156/79 MM HG, HR 69 /MIN, RR 18 /MIN, TEMP 98.3 F, OXYGEN SAT % 97, SAFE IN ENV? (Y/N) YM. CHRISTINE HAYDEN, CASING BLOWER II @ 1053. EXAMINATION GENERAL EXAMINATION: GENERALNO ACUTE DISTRESS, WELL NOURISHED AND HYDRATED. PSYCHAPPROPRIATE MOOD AND AFFECT . LUNGS:CLEAR TO AUSCULTATION BILATERALLY, NO WHEEZES, RHONCHI, RALES. HEART:NO MURMURS, REGULAR RATE AND RHYTHM. ASSESSMENTS PAIN IN LEFT KNEE - M25.562 (PRIMARY) LEFT SHOULDER TENDINITIS - M75.82 TREATMENT PAIN IN LEFT KNEE REFILL INDOMETHACIN CAPSULE, 50 MG, 1 CAPSULE WITH FOOD OR MILK, ORALLY NEEDED FOR PAIN, TWICE A DAY, 30 DAY(S), 45, REFILLS 1 CLINICAL NOTES: 58-YEAR-OLD FEMALE IN FOR WORKER'S COMP. CHRONIC PAIN FOLLOW-UP. GIVEN PRESENTING SYMPTOMS AND RESULTS OF PHYSICAL EXAMINATION RECOMMENDED CONTINUATION OF CURRENT MEDICATION REGIMEN WITH FOLLOW-UP IN 3 MONTHS. PATIENT HAS EXPRESSED UNDERSTANDING OF AND WAS IN AGREEMENT WITH TREATMENT PLAN. GIVEN TIME TO ASK QUESTIONS AND EXPRESS CONCERNS., ISTOP REGISTRY REVIEWED AND DEMONSTRATES COMPLLIANCE. (REF # [id number] ) BRINGS IN MEDICATIONS WHICH IS APPROPRIATE FOR WHAT WAS DISPENSED. RECENT URINE TOXICOLOGY REVIEWED. NO UNAUTHORIZED MEDICATIONS. NO ILLICIT SUBSTANCES AND PRESCRIBED MEDICATIONS WERE PRESENT. PROCEDURES PN WORKMANS' COMP OPINION IN YOUR OPINION, WAS THE INCIDENT THAT THE PATIENT DESCRIBED THE COMPETENT MEDICAL CAUSE OF THIS INJURY/ILLNESS? YES ARE THE PATIENT'S COMPLAINTS CONSISTENT WITH HIS/HER HISTORY OF THE INJURY/ILLNESS? YES IS THE PATIENT'S HISTORY OF THE INJURY/ILLNESS CONSISTENT WITH YOUR OBJECTIVE FINDING? YES WHAT IS THE PERCENTAGE OF TEMPORARY IMPAIRMENT? TOTAL = 100% IS THE PATIENT WORKING? NO DOCTOR ON SITE: JOSE HAUSER MD PROCEDURE CODES FA211 ESTABILISHED PATIENT [facility] FACILITY CHARGE DISPOSITION & COMMUNICATION FOLLOW UP 3 MONTHS (REASON: WORKER'S COMP. CHRONIC PAIN) ELECTRONICALLY SIGNED BY SOHEILA MEDRANO ON 03/25/2019 AT 08:45 AM EST DISCLAIMER : THIS IS A VISIT SUMMARY EXTRACTED FROM THE [employer] CHART. IT IS NOT A COPY OF THE [employer] PROGRESS NOTE. MTDD
== END ==
LOC: M PAIN 11:15
PROVIDERS: ATTEND Family Medicine
DX: M25.562 Pain in left knee (principal); M75.82 Other shoulder lesions, left shoulder

== ENCOUNTER → 2019-04-12 | Outpatient (CLI) | payer OTHER, MEDICAID ==
[~2019-04-12] MED LIST changes: -ROPI0.5T PO; +ROPI0.5T3 PO
--- NOTE | 2019-04-23 03:43 | ECWPNPC ---
PATIENT NAME: ESTHER MAE : 1960 GENDER: FEMALE VISIT DATE: 04/12/2019 DISCHARGE DATE: 04/12/19 1132 VISIT LOCKED DATE TIME: PHYSICIAN: FREDERICK MILES RESOURCE: FREDERICK MILES REASON FOR APPOINTMENT 1. BACK/NEW MED HISTORY OF PRESENT ILLNESS HISTORY OF PRESENT ILLNESS: PAIN THE PATIENT DESCRIBES THE PAIN... 58-YEAR-OLD FEMALE IN FOR CHRONIC PAIN FOLLOW-UP. SHE RATES HER PAIN CURRENTLY AT A 9 OUT OF 10 AND DESCRIBES IT ACHING, SHARP, STABBING, AND SHOOTING. SHE DOES ADMITS TO HEADACHE RECENTLY THAT SHE HAS BEEN WORKED UP FOR BY HER PRIMARY CARE PROVIDER. FALL RISK SCREENING: SCREENING :NO FALLS REPORTED IN THE LAST YEAR CURRENT MEDICATIONS TAKING IRON 28 MG TABLET 1 TABLET ORALLY ONCE A DAY TAKING INCRUSE ELLIPTA 62.5 MCG/INH AEROSOL POWDER BREATH ACTIVATED 1 PUFF INHALATION ONCE A DAY TAKING IPRATROPIUM-ALBUTEROL 0.5-2.5 (3) MG/3ML SOLUTION 3 ML INHALATION EVERY 4 HRS NEEDED TAKING PROAIR HFA 108 (90 BASE) MCG/ACT AEROSOL SOLUTION 2 PUFFS NEEDED INHALATION EVERY 6 HRS TAKING ASPIR-81 81 MG TABLET DELAYED RELEASE 1 TABLET ORALLY ONCE A DAY TAKING CLOTRIMAZOLE 1 % CREAM 1 APPLICATION TO AFFECTED AREA OF LEFT FOOT EXTERNALLY TWICE A DAY NEEDED TAKING MISC. DEVICES - MISCELLANEOUS BP CUFF, CHECK ONCE A DAY, DX: I10. TAKING GLUCOMETER E11.9 CHECK ACHS TAKING BLOOD GLUCOSE TEST - STRIP E11.9 CHECK ACHS IN VITRO DIRECTED TAKING LANCETS - MISCELLANEOUS E11.9 CHECK ACHS DIRECTED TAKING PRAVASTATIN SODIUM 80 MG TABLET 1 TABLET ORALLY ONCE A DAY TAKING CETIRIZINE HCL 10 MG TABLET 1 TABLET ORALLY ONCE A DAY TAKING TRIAMCINOLONE ACETONIDE 0.1 % CREAM 1 APPLICATION TO AFFECTED AREA EXTERNALLY TWICE A DAY TAKING BUPROPION HCL ER (SR) 150 MG TABLET EXTENDED RELEASE 12 HOUR 1 TABLET ORALLY TWICE A DAY TAKING PANTOPRAZOLE SODIUM 40 MG TABLET DELAYED RELEASE TAKE ONE TABLET BY MOUTH ONCE A DAY (STOP OMEPRAZOLE) TAKING DULOXETINE HCL 60 MG CAPSULE DELAYED RELEASE PARTICLES 1 CAPSULE ORALLY ONCE A DAY TAKING LYRICA 200 MG CAPSULE 1 CAPSULE ORALLY TID MDD=3, NOTES: WORKERS COMP TAKING NOVOLOG 100 UNIT/ML SOLUTION DIRECTED E11.9 SUBCUTANEOUS TID CC, NOTES: SLIDING SCALE: <=150: 0; 151-200: 3; 201-250: 6; 251-300: 9; 301-350: 12; 351-400: 15; MORE THAN 400: CALL TERRAZZO MECHANIC HELPER PHYSICIAN TAKING OXYCODONE-ACETAMINOPHEN 5-325 MG TABLET 1 TABLET NEEDED ORALLY FOR PAIN EVERY 8 HRS MDD4 TAKING CYCLOBENZAPRINE HCL 10 MG TABLET 1 TABLET 1 TO 2 HOURS BEFORE BEDTIME ORALLY ONCE A DAY, NOTES: [facility] TAKING JARDIANCE 25 MG TABLET 1 TABLET ORALLY ONCE A DAY, NOTES: DOSE INCREASE TAKING TRULICITY 0.75 MG/0.5ML SOLUTION PEN-INJECTOR DIRECTED SUBCUTANEOUS WEEKLY, NOTES: STOP BYDUREON TAKING METFORMIN HCL 850 MG TABLET 1 TABLET WITH A MEAL ORALLY BID TAKING LEVEMIR 100 UNIT/ML SOLUTION 15U IN AM AND 15U IN PM SUBCUTANEOUS DIRECTED TAKING METOPROLOL TARTRATE 25 MG TABLET 1 TABLET WITH FOOD ORALLY TWICE A DAY TAKING SPIRONOLACTONE 25 MG TABLET 1 TABLET ORALLY ONCE A DAY TAKING INDOMETHACIN 50 MG CAPSULE 1 CAPSULE WITH FOOD OR MILK ORALLY NEEDED FOR PAIN TWICE A DAY TAKING ROPINIROLE HCL 0.5 MG TABLET 2 TAB ORALLY AT BEDTIME NOT-TAKING EZETIMIBE 10 MG TABLET 1 TABLET ORALLY ONCE A DAY NOT-TAKING TIZANIDINE HCL 2 MG TABLET 1 TABLET NEEDED ORALLY THREE TIMES A DAY NOT-TAKING ENBREL SURECLICK 50 MG/ML SOLUTION AUTO-INJECTOR 1 ML SUBCUTANEOUS WEEKLY NOT-TAKING LOSARTAN POTASSIUM-HCTZ 50-12.5 MG TABLET 1 TABLET ORALLY ONCE A DAY NOT-TAKING DEBROX 6.5 % SOLUTION 5 DROPS INTO LEFT AND RIGHT EARS OTIC TWICE A DAY NOT-TAKING MACROBID 100 MG CAPSULE 1 CAPSULE WITH FOOD ORALLY EVERY 12 HRS NOT-TAKING KEFLEX 500 MG CAPSULE 1 CAPSULE ORALLY EVERY 12 HRS NOT-TAKING POLYTRIM 15554-8.1 UNIT/ML SOLUTION 1 DROP INTO RIGHT EYE OPHTHALMIC FOUR TIMES A DAY MEDICATION LIST REVIEWED AND RECONCILED WITH THE PATIENT PAST MEDICAL HISTORY DM, A1C WAS 6.5 ON BYDUREON AND 72U/D OF LANTUS, PREVIOUSLY WAS HIGH 13. CHRONIC LUNG DISEASE, FOLLOWS WITH DR. WARREN LAST SEEN JULY 2017 GERD, HAS NEVER SEEN A GI DOCTOR, DENIES HAVING HAD ESOPHAGOGASTRODUODENOSCOPY. ARTHRITIS BACK PAIN/NECK PAIN, CHRONIC SHOULDER PAIN AND CHRONIC LEG PAIN FOR WHICH SHE IS ON PERCOCET X 4 YEARS HYPERLIPIDEMIA HYPERTENSION, DENIES HISTORY OF HEART FAILURE, S/P HEART CATH REPORTEDLY NEG 2006, HAS HISTORY OF "SILENT HEART ATTACK" SO FOLLOWS DR. SHETH WHO DID STRESS JULY 2017, SHE GETS RLS FIBROMYALGIA RA, FOLLOWS WITH RHEUMATOLOGY PA IN [facility], PREVIOUSLY ENBREL BEFORE LOSING INSURANCE, LAST SEEN AUGUST 2017 PNEUMONIA OBESITY, LOST 100 POUNDS INTENTIONALLY WITHOUT WEIGHT LOSS SURGERY ANEMIA: UNCERTAIN CAUSE, DIAGNOSIS BY CARDIOLOGY, ON IRON OBSTRUCTIVE SLEEP APNEA, DR. WARREN, USES BIPAP EVERY NIGHT CORONARY ARTERY DISEASE-RACING HEART, SEE DR SHETH ALLERGIES SEASONAL: RED, ITCHY EYES, HEADACHE, NASAL CONGESTION - ALLERGY SURGICAL HISTORY L KNEE REPLACEMENT 2013 CHOLECYSTECTOMY LEFT SHOULDER REPAIR NOVASHORE CARDIAC CATHETERIZATION 06/2018 FAMILY HISTORY FATHER: , RHEUMATOID, DIAGNOSED WITH UNSPECIFIED CEREBRAL ARTERY OCCLUSION WITH CEREBRAL INFARCTION, DIABETES, HYPERTENSION, UNSPECIFIED HEART DISEASE MOTHER: , RHEUMATOID, HYPERTENSION, UNSPECIFIED HEART DISEASE, OTHER MALIGNANT NEOPLASM OF UNSPECIFIED SITE MATERNAL GRAND MOTHER: RHEUMATOID 2 SISTER(S) - HEALTHY. 1 SON(S) - HEALTHY. MOTHER: LUNG CA\\\\\\\\\\\\\\\\NOLDER SISTER()- CHF, HEART DISEASE\\\\\\\\\\\\\\\\N. SOCIAL HISTORY GENERAL: TOBACCO USE ARE YOU A:CURRENT SMOKER ARE YOU INTERESTED IN QUITTING?READY TO QUIT PT CURRENTLY USING WELLBUTRIN TO HELP QUIT HOW MANY CIGARETTES A DAY DO YOU SMOKE?5 OR LESS HOW SOON AFTER YOU WAKE UP DO YOU SMOKE YOUR FIRST CIGARETTE?6-30 MIN HOW OFTEN DO YOU SMOKE CIGARETTES?EVERY DAY PATIENT COUNSELED ON THE DANGERS OF TOBACCO USE AND URGED TO QUIT:04/12/2019 SMOKING CESSATION INFORMATION GIVEN12/25/2018 HIV / HEP-C SCREENING HIV TEST OFFERED TO PATIENT:YES DATE OFFERED:05/16/2018 TEST ACCEPTED:NO HEP-C TEST OFFERED TO PATIENT:NO REASON:PATIENT DECLINED BROCHURE PROVIDED TO PATIENTYES OTHERS AT HOME: NONE. EDUCATION LEVEL OF EDUCATION:HIGH SCHOOL DIET: REGULAR. LANGUAGE LANGUAGES SPOKEN:[place] CITIZEN DOMESTIC VIOLENCE DO YOU FEEL SAFE IN YOUR ENVIRONMENT?YES BMI CARE GOAL FOLLOW-UP ABOVE NORMAL BMI FOLLOW-UPDIETARY MANAGEMENT EDUCATION, GUIDANCE, AND COUNSELING RECREATIONAL DRUG USE DRUG USE?NO EXERCISE: NO REGULAR EXERCISE. 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 NEEDED?NO PAIN CLINIC PFS, CLERGY, PUBLIC HEALTH REFERRALS PFS REFERRAL NEEDED?NO CLERGY REFERRAL NEEDED?NO PUBLIC HEALTH REFERRAL NEEDED?NO WAS THE PROVIDER NOTIFIED OF ANY PERTINENT INFO?YES N/A HAS THE PATIENT BEEN EDUCATED REGARDING HIS/HER PLAN OF CARE?YES HAS THE PATIENT BEEN EDUCATED REGARDING PAIN, THE RISK FOR PAIN, THE IMPORTANCE OF EFFECTIVE PAIN MANAGEMENT, AND THE PAIN ASSESSMENT PROCESS?YES LATEX QUESTIONNAIRE LATEX ALLERGY : HAVE YOU EVER DEVELOPED ANY TYPE OF REACTION AFTER HANDLING LATEX PRODUCTS SUCH RUBBER GLOVES, CONDOMS, DIAPHRAGMS, BALLOONS, SOCKS, OR UNDERWEAR?NO LATEX ALLERGY : HAVE YOU EVER DEVELOPED ANY TYPE OF REACTION DURING OR AFTER DENTAL APPOINTMENT, VAGINAL/RECTAL EXAMINATION, SURGICAL PROCEDURE, OR ANY OTHER EXPOSURE?NO LATEX RISK : HAVE YOU EVER HAD ANY DIFFICULTY BREATHING OR HIVES AFTER EATING OR HANDLING ANY FRUITS, OR VEGETABLES; SUCH KIWI, BANANAS, STONE FRUITS, OR CHESTNUTSNO LATEX RISK : DO YOU HAVE A PREVIOUS PERSONAL HISTORY OF MORE THAN NINE SURGERIES, SPINA BIFIDA, OR REPEATED CATHERIZATIONS? NO LATEX RISK : ARE YOU FREQUENTLY EXPOSED TO LATEX PRODUCTS IN YOUR OCCUPATION?NO DATE ASKED : 04/12/2019 CAFFEINE CAFFEINE USE?YES HOW OFTEN AND HOW MUCH? 2 CUPS COFFEE PER DAY DAILY BASIS ADVANCE DIRECTIVE ADVANCE DIRECTIVE DISCUSSED WITH PATIENT:YES HCP - SONIA BENNETT (SISTER) [phone] CHEONDOISM [id number] GNOSTICISM MARITAL STATUS: SINGLE. 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 SEXUAL HX HAD SEX IN THE LAST 12 MONTHS (VAGINAL, ORAL, OR ANAL)?NO HAVE YOU EVER HAD AN STD?NO REVIEWED WITH PATIENT 12/25/17 0914 JSREVEIWED WTIH PT 05/29/18 0903 BVREVIEWED WITH PATIENT 08/27/18 1001 JS11/22/18 1249 REVIEWED WITH PT. AD REVIEWED WITH PATIENT 03/18/19 1036 BV. HOSPITALIZATION/MAJOR DIAGNOSTIC PROCEDURE SURGICALY RELATED PNEUMONIA-RESP FAILURE ON BIPAP 12/28/15 INFLUENZA/COPD 05/08/18 CHEST PAIN - CARDIAC CATHETERIZATION 06/2018 REVIEW OF SYSTEMS REVIEWED BY: PROVIDER: CHRISTOPHER JD INSURANCE CLAIMS SUPERVISOR-C . CONSTITUTIONAL: ANY CHANGE IN YOUR MEDICAL CONDITION? NO . CHILLS NO . FEVER NO . INFECTION: DO YOU HAVE NEW INFECTIONS? NO . DO YOU HAVE HISTORY OF MRSA? NO . MUSCULOSKELETAL: ANY NEW PATTERNS OF PAIN OR NUMBNESS? YES, NOW HAVING HEADACHES . GASTROENTEROLOGY: ANY NEW CHANGE IN BOWEL CONTROL? NO . GENITOURINARY: ANY NEW CHANGE IN BLADDER CONTROL? NO . IS THERE A CHANCE YOU COULD BE ? NO . HEMATOLOGY/LYMPH: DO YOU TAKE ANY BLOOD THINNERS? (FOR EXAMPLE- COUMADIN, PLAVIX, AGGRENOX, PLATEL, PRADAXA, OR XARELTO) NO . WHEN WAS YOUR LAST DOSE? DATE: TIME: . NEUROLOGY: HAVE YOU FALLEN IN THE PAST 12 MONTHS? YES, PT STATES THAT SHE WAS HOME, FELL WHILE GETTING OUT OF BED, NO INJURY, NO REPORT TO ED . ANY NEW EXTREMITY NUMBNESS OR WEAKNESS? NO . CARDIOLOGY: DO YOU HAVE A PACEMAKER OR DEFIBRILLATOR? NO . RESPIRATORY: HAVE YOU BEEN SICK IN THE PAST WEEK? NO . FEVER NO . FLU LIKE SYMPTOMS? NO . COUGH NO . INTEGUMENTARY: DO YOU HAVE ANY RASHES OR OPEN SORES? NO . ALLERGIC/IMMUNO: ARE YOU ALLERGIC TO IV DYE? NO . ANY NEW ALLERGIES? NO . PSYCHIATRIC: DO YOU HAVE THOUGHTS OF HURTING YOURSELF OR SOMEONE ELSE? NO . ARE YOU ABUSED, NEGLECTED, OR IN AN UNSAFE ENVIRONMENT? NO . ENDOCRINOLOGY: ARE YOU DIABETIC? NO . OTHER: DO YOU NEED ANY PRESCRIPTIONS? NO . IF YES, PLEASE LIST: ____ . ANY NEW PROBLEMS WITH YOUR MEDICATIONS? NO . WHEN DID YOU LAST EAT? ____ . WHEN DID YOU LAST DRINK? ____ . WHAT DID YOU LAST DRINK? ____ . NAME OF PERSON DRIVING YOU HOME? ____ . DO YOU HAVE ANY OTHER QUESTIONS OR CONCERNS NO . VITAL SIGNS WT 239.0 LBS, HT 66.75 IN, BMI 37.71 INDEX, BP 181/102 MM HG, HR 70 /MIN, RR 18 /MIN, TEMP 96.0 F, OXYGEN SAT % 95%, SAFE IN ENV? (Y/N) Y, NA INITIALS AW 1104, REVIEWED BY: RACHEL. EXAMINATION GENERAL EXAMINATION: GENERALNO ACUTE DISTRESS, WELL NOURISHED AND HYDRATED. PSYCHAPPROPRIATE MOOD AND AFFECT . LUNGS:CLEAR TO AUSCULTATION BILATERALLY, NO WHEEZES, RHONCHI, RALES. HEART:NO MURMURS, REGULAR RATE AND RHYTHM. ASSESSMENTS INTERVERTEBRAL DISC DISORDERS WITH RADICULOPATHY, LUMBAR REGION - M51.16 (PRIMARY) TREATMENT INTERVERTEBRAL DISC DISORDERS WITH RADICULOPATHY, LUMBAR REGION CLINICAL NOTES: 58-YEAR-OLD FEMALE IN FOR CHRONIC PAIN FOLLOW-UP. GIVEN PRESENTING SYMPTOMS AND RESULTS PHYSICAL EXAMINATION RECOMMENDED STOPPING FLEXERIL AND STARTING TIZANIDINE 4 MG 3 TIMES A DAY NEEDED. FURTHER RECOMMENDED REFERRAL TO PHYSICAL THERAPY FOR MYOFASCIAL RELEASE. PATIENT HAS EXPRESSED UNDERSTANDING OF AND WAS IN AGREEMENT WITH TREATMENT PLAN. GIVEN TIME TO ASK QUESTIONS AND EXPRESS CONCERNS., ISTOP REGISTRY REVIEWED AND DEMONSTRATES COMPLLIANCE. (REF # [id number] ) BRINGS IN MEDICATIONS WHICH IS APPROPRIATE FOR WHAT WAS DISPENSED. RECENT URINE TOXICOLOGY REVIEWED. NO UNAUTHORIZED MEDICATIONS. NO ILLICIT SUBSTANCES AND PRESCRIBED MEDICATIONS WERE PRESENT. PREVENTIVE MEDICINE PAIN CLINIC TEACHING: THE PATIENT HAS BEEN EDUCATED REGARDING PAIN, THE RISK FOR PAIN, THE IMPORTANCE OF EFFECTIVE PAIN MANAGEMENT, AND THE PAIN ASSESSMENT PROCESS. : PRINTED AND REVIEWED WRITTEN MATERIAL ON TIZANIDINE, REINFORCED NUT DEHYDRATOR OPERATOR ORDERS TO STOP CYCLOBENZIPRENE, REVIEWED INSTRUCTION FOR PHYSICAL THERAPY. PT ACKNOWLEDGED UNDERSTANDING. DS PROCEDURE CODES [id number] ESTABILISHED PATIENT [facility] CHARGE DISPOSITION & COMMUNICATION FOLLOW UP 2 MONTHS (REASON: BACK PAIN) ELECTRONICALLY SIGNED BY SOHEILA MEDRANO ON 04/22/2019 AT 10:05 AM EST DISCLAIMER : THIS IS A VISIT SUMMARY EXTRACTED FROM THE [facility] CHART. IT IS NOT A COPY OF THE [facility] PROGRESS NOTE. PRETTY
== END ==
LOC: M PAIN 10:45
PROVIDERS: ATTEND Family Medicine
DX: M51.16 Intervertebral disc disorders with radiculopathy, lumbar region (principal); G89.29 Other chronic pain; E11.9 Type 2 diabetes mellitus without complications; K21.9 Gastro-esophageal reflux disease without esophagitis; E78.5 Hyperlipidemia, unspecified; I10 Essential (primary) hypertension; M79.7 Fibromyalgia; D50.9 Iron deficiency anemia, unspecified; G47.33 Obstructive sleep apnea (adult) (pediatric); Z96.652 Presence of left artificial knee joint; F17.210 Nicotine dependence, cigarettes, uncomplicated; Z79.51 Long term (current) use of inhaled steroids; Z79.82 Long term (current) use of aspirin; Z79.4 Long term (current) use of insulin; Z79.899 Other long term (current) drug therapy

== ENCOUNTER → 2019-06-07 | Outpatient (REF) | payer OTHER, MEDICAID, MEDICARE | LOC: M LAB REF 14:50 | PROVIDERS: ATTEND Otolaryngology | DX: L82.1 Other seborrheic keratosis (principal) ==

== ENCOUNTER → 2019-06-11 | Outpatient (CLI) | payer OTHER, MEDICAID ==
--- NOTE | 2019-06-13 02:29 | ECWPNPC ---
PATIENT NAME: ESTHER MAE : 1960 GENDER: FEMALE VISIT DATE: 06/11/2019 DISCHARGE DATE: 06/11/19 1053 VISIT LOCKED DATE TIME: PHYSICIAN: FREDERICK MILES RESOURCE: FREDERICK MILES REASON FOR APPOINTMENT 1. HUMANA-BACK HISTORY OF PRESENT ILLNESS HISTORY OF PRESENT ILLNESS: PAIN THE PATIENT DESCRIBES THE PAINDURING THE LAST MONTH SEVERITY - PAIN SCORE OF8/10 LOCATIONSLOWER BACK QUALITYTHROBBING, SHOOTING DURATIONCONTINUOUS, CONSTANT, ALL DAY PAIN IS INCREASED BY:ACTIVITIES PERMISSION REQUESTED AND RECEIVED FOR PATIENT TO PERFORM TELEHEALTH VISIT. 58-YEAR-OLD FEMALE IN FOR CHRONIC PAIN FOLLOW-UP. AT LAST CLINIC VISIT SHE WAS STARTED ON TIZANIDINE AND DOESN'T FEEL IT HAS BEEN ALL THAT HELPFUL. SHE RATES HER PAIN CURRENTLY AT AN 8 OUT OF 10 AND DESCRIBES IT THROBBING, AND SHOOTING. SHE FEELS HER MEDICATIONS ARE WORKING WELL AND DENIES MED SIDE EFFECTS AT THIS TIME. SHE WOULD LIKE TO DISCUSS POTENTIAL DCS TRIAL. FALL RISK SCREENING: SCREENING :NO FALLS REPORTED IN THE LAST YEAR CURRENT MEDICATIONS TAKING IRON 28 MG TABLET 1 TABLET ORALLY ONCE A DAY TAKING INCRUSE ELLIPTA 62.5 MCG/INH AEROSOL POWDER BREATH ACTIVATED 1 PUFF INHALATION ONCE A DAY TAKING IPRATROPIUM-ALBUTEROL 0.5-2.5 (3) MG/3ML SOLUTION 3 ML INHALATION EVERY 4 HRS NEEDED TAKING PROAIR HFA 108 (90 BASE) MCG/ACT AEROSOL SOLUTION 2 PUFFS NEEDED INHALATION EVERY 6 HRS TAKING ASPIR-81 81 MG TABLET DELAYED RELEASE 1 TABLET ORALLY ONCE A DAY TAKING CLOTRIMAZOLE 1 % CREAM 1 APPLICATION TO AFFECTED AREA OF LEFT FOOT EXTERNALLY TWICE A DAY NEEDED TAKING MISC. DEVICES - MISCELLANEOUS BP CUFF, CHECK ONCE A DAY, DX: I10. TAKING GLUCOMETER E11.9 CHECK ACHS TAKING BLOOD GLUCOSE TEST - STRIP E11.9 CHECK ACHS IN VITRO DIRECTED TAKING LANCETS - MISCELLANEOUS E11.9 CHECK ACHS DIRECTED TAKING PRAVASTATIN SODIUM 80 MG TABLET 1 TABLET ORALLY ONCE A DAY TAKING CETIRIZINE HCL 10 MG TABLET 1 TABLET ORALLY ONCE A DAY TAKING TRIAMCINOLONE ACETONIDE 0.1 % CREAM 1 APPLICATION TO AFFECTED AREA EXTERNALLY TWICE A DAY TAKING DULOXETINE HCL 60 MG CAPSULE DELAYED RELEASE PARTICLES 1 CAPSULE ORALLY ONCE A DAY TAKING NOVOLOG 100 UNIT/ML SOLUTION DIRECTED E11.9 SUBCUTANEOUS TID CC, NOTES: SLIDING SCALE: <=150: 0; 151-200: 3; 201-250: 6; 251-300: 9; 301-350: 12; 351-400: 15; MORE THAN 400: CALL PACKAGE DELIVERY ROOM SERVICE RUNNER PHYSICIAN TAKING CYCLOBENZAPRINE HCL 10 MG TABLET 1 TABLET 1 TO 2 HOURS BEFORE BEDTIME ORALLY ONCE A DAY, NOTES: [facility] T[facility] JARDIANCE 25 MG TABLET 1 TABLET ORALLY ONCE A DAY, NOTES: DOSE INCREASE TAKING TRULICITY 0.75 MG/0.5ML SOLUTION PEN-INJECTOR DIRECTED SUBCUTANEOUS WEEKLY, NOTES: STOP BYDUREON TAKING LEVEMIR 100 UNIT/ML SOLUTION 15U IN AM AND 15U IN PM SUBCUTANEOUS DIRECTED TAKING ROPINIROLE HCL 0.5 MG TABLET 2 TAB ORALLY AT BEDTIME TAKING PANTOPRAZOLE SODIUM 40 MG TABLET DELAYED RELEASE TAKE ONE TABLET BY MOUTH ONCE A DAY (STOP OMEPRAZOLE) TAKING METFORMIN HCL 850 MG TABLET 1 TABLET WITH A MEAL ORALLY BID TAKING LYRICA 200 MG CAPSULE 1 CAPSULE ORALLY TID MDD=3, NOTES: WORKERS COMP TAKING OXYCODONE-ACETAMINOPHEN 5-325 MG TABLET 1 TABLET NEEDED ORALLY FOR PAIN EVERY 8 HRS MDD4 TAKING METOPROLOL TARTRATE 25 MG TABLET 2 TABLET WITH FOOD IN AM PLUS 1 TABLET IN PM ORALLY DIRECTED, NOTES: PLEASE NOTE DOSE INCREASE. PLEASE DISCONTINUE THE LOSARTAN-HCTZ IN YOUR RECORDS. TAKING SPIRONOLACTONE 25 MG TABLET 1 TABLET ORALLY ONCE A DAY TAKING BUPROPION HCL ER (SR) 150 MG TABLET EXTENDED RELEASE 12 HOUR 1 TABLET ORALLY TWICE A DAY TAKING INDOMETHACIN 50 MG CAPSULE 1 CAPSULE WITH FOOD OR MILK ORALLY NEEDED FOR PAIN TWICE A DAY NOT-TAKING EZETIMIBE 10 MG TABLET 1 TABLET ORALLY ONCE A DAY NOT-TAKING TIZANIDINE HCL 2 MG TABLET 1 TABLET NEEDED ORALLY THREE TIMES A DAY NOT-TAKING ENBREL SURECLICK 50 MG/ML SOLUTION AUTO-INJECTOR 1 ML SUBCUTANEOUS WEEKLY NOT-TAKING LOSARTAN POTASSIUM-HCTZ 50-12.5 MG TABLET 1 TABLET ORALLY ONCE A DAY NOT-TAKING DEBROX 6.5 % SOLUTION 5 DROPS INTO LEFT AND RIGHT EARS OTIC TWICE A DAY NOT-TAKING MACROBID 100 MG CAPSULE 1 CAPSULE WITH FOOD ORALLY EVERY 12 HRS NOT-TAKING KEFLEX 500 MG CAPSULE 1 CAPSULE ORALLY EVERY 12 HRS NOT-TAKING POLYTRIM 17785-5.1 UNIT/ML SOLUTION 1 DROP INTO RIGHT EYE OPHTHALMIC FOUR TIMES A DAY MEDICATION LIST REVIEWED AND RECONCILED WITH THE PATIENT PAST MEDICAL HISTORY DM, A1C WAS 6.5 ON BYDUREON AND 72U/D OF LANTUS, PREVIOUSLY WAS HIGH 13. CHRONIC LUNG DISEASE, FOLLOWS WITH DR. WARREN LAST SEEN JULY 2017 GERD, HAS NEVER SEEN A GI DOCTOR, DENIES HAVING HAD ESOPHAGOGASTRODUODENOSCOPY. ARTHRITIS BACK PAIN/NECK PAIN, CHRONIC SHOULDER PAIN AND CHRONIC LEG PAIN FOR WHICH SHE IS ON PERCOCET X 4 YEARS HYPERLIPIDEMIA HYPERTENSION, DENIES HISTORY OF HEART FAILURE, S/P HEART CATH REPORTEDLY NEG 2006, HAS HISTORY OF "SILENT HEART ATTACK" SO FOLLOWS DR. SHETH WHO DID STRESS JULY 2017, SHE GETS RLS FIBROMYALGIA RA, FOLLOWS WITH RHEUMATOLOGY PA IN [facility], PREVIOUSLY ENBREL BEFORE LOSING INSURANCE, LAST SEEN AUGUST 2017 PNEUMONIA OBESITY, LOST 100 POUNDS INTENTIONALLY WITHOUT WEIGHT LOSS SURGERY ANEMIA: UNCERTAIN CAUSE, DIAGNOSIS BY CARDIOLOGY, ON IRON OBSTRUCTIVE SLEEP APNEA, DR. WARREN, USES BIPAP EVERY NIGHT CORONARY ARTERY DISEASE-RACING HEART, SEE DR SHETH ALLERGIES SEASONAL: RED, ITCHY EYES, HEADACHE, NASAL CONGESTION - ALLERGY SURGICAL HISTORY L KNEE REPLACEMENT 2013 CHOLECYSTECTOMY LEFT SHOULDER REPAIR NOVASHORE CARDIAC CATHETERIZATION 06/2018 GROWTH REMOVAL FROM INSIDE OF NOSE 06/06/19 FAMILY HISTORY FATHER: , RHEUMATOID, DIAGNOSED WITH DIABETES, HYPERTENSION, UNSPECIFIED HEART DISEASE, UNSPECIFIED CEREBRAL ARTERY OCCLUSION WITH CEREBRAL INFARCTION MOTHER: , RHEUMATOID, OTHER MALIGNANT NEOPLASM OF UNSPECIFIED SITE, HYPERTENSION, UNSPECIFIED HEART DISEASE MATERNAL GRAND MOTHER: RHEUMATOID 2 SISTER(S) - HEALTHY. 1 SON(S) - HEALTHY. MOTHER: LUNG CA\\\\\\\\\\\\\\\\NOLDER SISTER()- CHF, HEART DISEASE\\\\\\\\\\\\\\\\N. SOCIAL HISTORY GENERAL: TOBACCO USE ARE YOU A:CURRENT SMOKER ARE YOU INTERESTED IN QUITTING?READY TO QUIT PT CURRENTLY USING WELLBUTRIN TO HELP QUIT HOW MANY CIGARETTES A DAY DO YOU SMOKE?5 OR LESS 2-3 PER DAY NOW-05/03/19 HOW SOON AFTER YOU WAKE UP DO YOU SMOKE YOUR FIRST CIGARETTE?6-30 MIN HOW OFTEN DO YOU SMOKE CIGARETTES?EVERY DAY PATIENT COUNSELED ON THE DANGERS OF TOBACCO USE AND URGED TO QUIT:06/11/2019 SMOKING CESSATION INFORMATION GIVEN06/11/2019 VAPORNO E-CIGARETTENO HIV / HEP-C SCREENING HIV TEST OFFERED TO PATIENT:YES DATE OFFERED:05/16/2018 TEST ACCEPTED:NO HEP-C TEST OFFERED TO PATIENT:NO REASON:PATIENT DECLINED BROCHURE PROVIDED TO PATIENTYES OTHERS AT HOME: NONE. EDUCATION LEVEL OF EDUCATION:HIGH SCHOOL DIET: REGULAR. LANGUAGE LANGUAGES SPOKEN:OCCITAN DOMESTIC VIOLENCE DO YOU FEEL SAFE IN YOUR ENVIRONMENT?YES BMI CARE GOAL FOLLOW-UP ABOVE NORMAL BMI FOLLOW-UPDIETARY MANAGEMENT EDUCATION, GUIDANCE, AND COUNSELING RECREATIONAL DRUG USE DRUG USE?NO EXERCISE: NO REGULAR EXERCISE. LEARNING BARRIERS / SPECIAL NEEDS CHANGE FROM LAST VISIT?NO BARRIERS TO LEARNING?NO HEARING IMPAIRED?NO VISION IMPAIRED?YES READERS COGNITIVELY IMPAIRED?NO READINESS TO LEARN?YES LEARNING PREFERENCES?NO LEARNING CAPABILITIES PRESENT?YES EMOTIONAL BARRIERS?NO SPECIAL DEVICES?YES :OTHER BIPAP QUALITY CONTROL SYSTEMS MANAGER NEEDED?NO PAIN CLINIC PFS, CLERGY, PUBLIC HEALTH REFERRALS PFS REFERRAL NEEDED?NO CLERGY REFERRAL NEEDED?NO PUBLIC HEALTH REFERRAL NEEDED?NO WAS THE PROVIDER NOTIFIED OF ANY PERTINENT INFO?YES N/A HAS THE PATIENT BEEN EDUCATED REGARDING HIS/HER PLAN OF CARE?YES HAS THE PATIENT BEEN EDUCATED REGARDING PAIN, THE RISK FOR PAIN, THE IMPORTANCE OF EFFECTIVE PAIN MANAGEMENT, AND THE PAIN ASSESSMENT PROCESS?YES LATEX QUESTIONNAIRE LATEX ALLERGY : HAVE YOU EVER DEVELOPED ANY TYPE OF REACTION AFTER HANDLING LATEX PRODUCTS SUCH RUBBER GLOVES, CONDOMS, DIAPHRAGMS, BALLOONS, SOCKS, OR UNDERWEAR?NO LATEX ALLERGY : HAVE YOU EVER DEVELOPED ANY TYPE OF REACTION DURING OR AFTER DENTAL APPOINTMENT, VAGINAL/RECTAL EXAMINATION, SURGICAL PROCEDURE, OR ANY OTHER EXPOSURE?NO DATE ASKED : 04/12/2019 LATEX RISK : HAVE YOU EVER HAD ANY DIFFICULTY BREATHING OR HIVES AFTER EATING OR HANDLING ANY FRUITS, OR VEGETABLES; SUCH KIWI, BANANAS, STONE FRUITS, OR CHESTNUTSNO LATEX RISK : DO YOU HAVE A PREVIOUS PERSONAL HISTORY OF MORE THAN NINE SURGERIES, SPINA BIFIDA, OR REPEATED CATHERIZATIONS? NO LATEX RISK : ARE YOU FREQUENTLY EXPOSED TO LATEX PRODUCTS IN YOUR OCCUPATION?NO CAFFEINE CAFFEINE USE?YES HOW OFTEN AND HOW MUCH? 2 CUPS COFFEE PER DAY DAILY BASIS ADVANCE DIRECTIVE ADVANCE DIRECTIVE DISCUSSED WITH PATIENT:YES HCP - SONIA DONALD (SISTER) [phone] CATHOLIC [id number] YAZDANISM MARITAL STATUS: SINGLE. 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 SEXUAL HX HAD SEX IN THE LAST 12 MONTHS (VAGINAL, ORAL, OR ANAL)?NO HAVE YOU EVER HAD AN STD?NO HOSPITALIZATION/MAJOR DIAGNOSTIC PROCEDURE SURGICALY RELATED PNEUMONIA-RESP FAILURE ON BIPAP 12/28/15 INFLUENZA/COPD 05/08/18 CHEST PAIN - CARDIAC CATHETERIZATION 06/2018 REVIEW OF SYSTEMS REVIEWED BY: PROVIDER: TRINIDAD MOLINA . CONSTITUTIONAL: ANY CHANGE IN YOUR MEDICAL CONDITION? NO . CHILLS NO . FEVER NO . INFECTION: DO YOU HAVE NEW INFECTIONS? NO . DO YOU HAVE HISTORY OF MRSA? NO . MUSCULOSKELETAL: ANY NEW PATTERNS OF PAIN OR NUMBNESS? NO . GASTROENTEROLOGY: ANY NEW CHANGE IN BOWEL CONTROL? NO . GENITOURINARY: ANY NEW CHANGE IN BLADDER CONTROL? NO . IS THERE A CHANCE YOU COULD BE ? NO . HEMATOLOGY/LYMPH: DO YOU TAKE ANY BLOOD THINNERS? (FOR EXAMPLE- COUMADIN, PLAVIX, AGGRENOX, PLATEL, PRADAXA, OR XARELTO) NO . WHEN WAS YOUR LAST DOSE? DATE: TIME: . NEUROLOGY: HAVE YOU FALLEN IN THE PAST 12 MONTHS? NO . ANY NEW EXTREMITY NUMBNESS OR WEAKNESS? NO . CARDIOLOGY: DO YOU HAVE A PACEMAKER OR DEFIBRILLATOR? NO . RESPIRATORY: HAVE YOU BEEN SICK IN THE PAST WEEK? NO . FEVER NO . FLU LIKE SYMPTOMS? NO . COUGH NO . INTEGUMENTARY: DO YOU HAVE ANY RASHES OR OPEN SORES? NO . ALLERGIC/IMMUNO: ARE YOU ALLERGIC TO IV DYE? NO . ANY NEW ALLERGIES? NO . PSYCHIATRIC: DO YOU HAVE THOUGHTS OF HURTING YOURSELF OR SOMEONE ELSE? NO . ARE YOU ABUSED, NEGLECTED, OR IN AN UNSAFE ENVIRONMENT? NO . ENDOCRINOLOGY: ARE YOU DIABETIC? NO . OTHER: DO YOU NEED ANY PRESCRIPTIONS? NO . IF YES, PLEASE LIST: ____ . ANY NEW PROBLEMS WITH YOUR MEDICATIONS? NO . WHEN DID YOU LAST EAT? ____ . WHEN DID YOU LAST DRINK? ____ . WHAT DID YOU LAST DRINK? ____ . NAME OF PERSON DRIVING YOU HOME? ____ . DO YOU HAVE ANY OTHER QUESTIONS OR CONCERNS NO . EXAMINATION GENERAL EXAMINATION: GENERALNO ACUTE DISTRESS, WELL NOURISHED AND HYDRATED. PSYCHAPPROPRIATE MOOD AND AFFECT , ORIENTED X 3. ASSESSMENTS INTERVERTEBRAL DISC DISORDERS WITH RADICULOPATHY, LUMBOSACRAL REGION - M51.17 (PRIMARY) TREATMENT INTERVERTEBRAL DISC DISORDERS WITH RADICULOPATHY, LUMBOSACRAL REGION CLINICAL NOTES: 58-YEAR-OLD FEMALE IN FOR CHRONIC PAIN FOLLOW-UP. GIVEN PRESENTING SYMPTOMS AND DISCUSSION WITH PATIENT ABOUT DCS TRIAL THIS SOCIAL SERVICES SPECIALIST WE'LL SEND PATIENT BROCHURES REGARDING DCS TRIAL AND HAVE DCS REPS CONTACT PATIENT. WE'LL FOLLOW-UP WITH PATIENT IN CLINIC IN ONE MONTH TO DISCUSS DCS TRIAL. PATIENT HAS EXPRESSED UNDERSTANDING OF AND WAS IN AGREEMENT WITH TREATMENT PLAN. GIVEN TIME TO ASK QUESTIONS AND EXPRESS CONCERNS., ISTOP REGISTRY REVIEWED AND DEMONSTRATES COMPLLIANCE. (REF # [id number] ) BRINGS IN MEDICATIONS WHICH IS APPROPRIATE FOR WHAT WAS DISPENSED. RECENT URINE TOXICOLOGY REVIEWED. NO UNAUTHORIZED MEDICATIONS. NO ILLICIT SUBSTANCES AND PRESCRIBED MEDICATIONS WERE PRESENT. TELEHEALTH VISIT PERFORMED VIA ZOOM. TIME SPENT WITH PATIENT 7 MINUTES. DISPOSITION & COMMUNICATION FOLLOW UP 4 WEEKS (REASON: BACK PAIN, IN CLINIC VISIT TO DISCUSS DCS TRIAL) ELECTRONICALLY SIGNED BY SOHEILA MEDRANO ON 06/12/2019 AT 09:17 AM EDT DISCLAIMER : THIS IS A VISIT SUMMARY EXTRACTED FROM THE [employer] CHART. IT IS NOT A COPY OF THE [employer] PROGRESS NOTE. PRETTY
== END ==
LOC: M PAIN 10:00
PROVIDERS: ATTEND Family Medicine
DX: M51.17 Intervertebral disc disorders with radiculopathy, lumbosacral region (principal)

== ENCOUNTER → 2019-06-20 | Outpatient (CLI) | payer OTHER, MEDICAID ==
[~2019-06-20] MED LIST changes: -METF-791 PO; +METF-838 PO
--- NOTE | 2019-06-22 02:37 | ECWPNPC ---
PATIENT NAME: ESTHER MAE : 1960 GENDER: FEMALE VISIT DATE: 06/20/2019 DISCHARGE DATE: 06/20/19 1014 VISIT LOCKED DATE TIME: PHYSICIAN: FREDERICK MILES RESOURCE: FREDERICK MILES REASON FOR APPOINTMENT 1. W/C LEFT KNEE AND LEFT [phone] HISTORY OF PRESENT ILLNESS HISTORY OF PRESENT ILLNESS: PAIN THE PATIENT DESCRIBES THE PAIN... PERMISSION REQUESTED AND RECEIVED FROM PATIENT TO PERFORM TELEHEALTH VISIT. 58-YEAR-OLD FEMALE IN FOR WORKER'S COMP. CHRONIC PAIN FOLLOW-UP. SHE RATES HER PAIN CURRENTLY AT A 10 OUT OF 10 AND FEELS THIS IS RELATED TO THE RECENT WEATHER CHANGE. SHE FEELS HER MEDICATIONS ARE HELPFUL AND DENIES MED SIDE EFFECTS AT THIS TIME. 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 THE PATIENT SAYS THE PAIN IS SEVERE CONTINUES TO PERSIST IN BOTH AREAS THE PATIENT SAYS THE PAIN IS AFFECTING HER ABILITY TO PERFORM HER DAILY ACTIVITIES SHE SAYS SHE SHE CAN NO LONGER DO HOUSEWORK SUCH VACUUMING AND CLEANING THE BATHROOM AND THAT SHE HAD TO HIRE A COMPUTER SCIENCES PROFESSOR TO TAKE CARE OF HER HOME TASKS. FALL RISK SCREENING: SCREENING :NO FALLS REPORTED IN THE LAST YEAR CURRENT MEDICATIONS TAKING IRON 28 MG TABLET 1 TABLET ORALLY ONCE A DAY TAKING INCRUSE ELLIPTA 62.5 MCG/INH AEROSOL POWDER BREATH ACTIVATED 1 PUFF INHALATION ONCE A DAY TAKING IPRATROPIUM-ALBUTEROL 0.5-2.5 (3) MG/3ML SOLUTION 3 ML INHALATION EVERY 4 HRS NEEDED TAKING PROAIR HFA 108 (90 BASE) MCG/ACT AEROSOL SOLUTION 2 PUFFS NEEDED INHALATION EVERY 6 HRS TAKING ASPIR-81 81 MG TABLET DELAYED RELEASE 1 TABLET ORALLY ONCE A DAY TAKING CLOTRIMAZOLE 1 % CREAM 1 APPLICATION TO AFFECTED AREA OF LEFT FOOT EXTERNALLY TWICE A DAY NEEDED TAKING MISC. DEVICES - MISCELLANEOUS BP CUFF, CHECK ONCE A DAY, DX: I10. TAKING GLUCOMETER E11.9 CHECK ACHS TAKING BLOOD GLUCOSE TEST - STRIP E11.9 CHECK ACHS IN VITRO DIRECTED TAKING LANCETS - MISCELLANEOUS E11.9 CHECK ACHS DIRECTED TAKING PRAVASTATIN SODIUM 80 MG TABLET 1 TABLET ORALLY ONCE A DAY TAKING CETIRIZINE HCL 10 MG TABLET 1 TABLET ORALLY ONCE A DAY TAKING TRIAMCINOLONE ACETONIDE 0.1 % CREAM 1 APPLICATION TO AFFECTED AREA EXTERNALLY TWICE A DAY TAKING DULOXETINE HCL 60 MG CAPSULE DELAYED RELEASE PARTICLES 1 CAPSULE ORALLY ONCE A DAY TAKING NOVOLOG 100 UNIT/ML SOLUTION DIRECTED E11.9 SUBCUTANEOUS TID CC, NOTES: SLIDING SCALE: <=150: 0; 151-200: 3; 201-250: 6; 251-300: 9; 301-350: 12; 351-400: 15; MORE THAN 400: CALL WAX POT TENDER PHYSICIAN TAKING CYCLOBENZAPRINE HCL 10 MG TABLET 1 TABLET 1 TO 2 HOURS BEFORE BEDTIME ORALLY ONCE A DAY, NOTES: [facility] TAKING JARDIANCE 25 MG TABLET 1 TABLET ORALLY ONCE A DAY, NOTES: DOSE INCREASE TAKING TRULICITY 0.75 MG/0.5ML SOLUTION PEN-INJECTOR DIRECTED SUBCUTANEOUS WEEKLY, NOTES: STOP BYDUREON TAKING LEVEMIR 100 UNIT/ML SOLUTION 15U IN AM AND 15U IN PM SUBCUTANEOUS DIRECTED TAKING ROPINIROLE HCL 0.5 MG TABLET 2 TAB ORALLY AT BEDTIME TAKING PANTOPRAZOLE SODIUM 40 MG TABLET DELAYED RELEASE TAKE ONE TABLET BY MOUTH ONCE A DAY (STOP OMEPRAZOLE) TAKING METFORMIN HCL 850 MG TABLET 1 TABLET WITH A MEAL ORALLY BID TAKING LYRICA 200 MG CAPSULE 1 CAPSULE ORALLY TID MDD=3, NOTES: WORKERS COMP TAKING OXYCODONE-ACETAMINOPHEN 5-325 MG TABLET 1 TABLET NEEDED ORALLY FOR PAIN EVERY 8 HRS MDD4 TAKING METOPROLOL TARTRATE 25 MG TABLET 2 TABLET WITH FOOD IN AM PLUS 1 TABLET IN PM ORALLY DIRECTED, NOTES: PLEASE NOTE DOSE INCREASE. PLEASE DISCONTINUE THE LOSARTAN-HCTZ IN YOUR RECORDS. TAKING SPIRONOLACTONE 25 MG TABLET 1 TABLET ORALLY ONCE A DAY TAKING BUPROPION HCL ER (SR) 150 MG TABLET EXTENDED RELEASE 12 HOUR 1 TABLET ORALLY TWICE A DAY TAKING INDOMETHACIN 50 MG CAPSULE 1 CAPSULE WITH FOOD OR MILK ORALLY NEEDED FOR PAIN TWICE A DAY NOT-TAKING EZETIMIBE 10 MG TABLET 1 TABLET ORALLY ONCE A DAY NOT-TAKING TIZANIDINE HCL 2 MG TABLET 1 TABLET NEEDED ORALLY THREE TIMES A DAY NOT-TAKING ENBREL SURECLICK 50 MG/ML SOLUTION AUTO-INJECTOR 1 ML SUBCUTANEOUS WEEKLY NOT-TAKING LOSARTAN POTASSIUM-HCTZ 50-12.5 MG TABLET 1 TABLET ORALLY ONCE A DAY NOT-TAKING DEBROX 6.5 % SOLUTION 5 DROPS INTO LEFT AND RIGHT EARS OTIC TWICE A DAY NOT-TAKING MACROBID 100 MG CAPSULE 1 CAPSULE WITH FOOD ORALLY EVERY 12 HRS NOT-TAKING KEFLEX 500 MG CAPSULE 1 CAPSULE ORALLY EVERY 12 HRS NOT-TAKING POLYTRIM 83879-1.1 UNIT/ML SOLUTION 1 DROP INTO RIGHT EYE OPHTHALMIC FOUR TIMES A DAY MEDICATION LIST REVIEWED AND RECONCILED WITH THE PATIENT PAST MEDICAL HISTORY DM, A1C WAS 6.5 ON BYDUREON AND 72U/D OF LANTUS, PREVIOUSLY WAS HIGH 13. CHRONIC LUNG DISEASE, FOLLOWS WITH DR. WARREN LAST SEEN JULY 2017 GERD, HAS NEVER SEEN A GI DOCTOR, DENIES HAVING HAD ESOPHAGOGASTRODUODENOSCOPY. ARTHRITIS BACK PAIN/NECK PAIN, CHRONIC SHOULDER PAIN AND CHRONIC LEG PAIN FOR WHICH SHE IS ON PERCOCET X 4 YEARS HYPERLIPIDEMIA HYPERTENSION, DENIES HISTORY OF HEART FAILURE, S/P HEART CATH REPORTEDLY NEG 2006, HAS HISTORY OF "SILENT HEART ATTACK" SO FOLLOWS DR. SHETH WHO DID STRESS JULY 2017, SHE GETS RLS FIBROMYALGIA RA, FOLLOWS WITH RHEUMATOLOGY PA IN [facility], PREVIOUSLY ENBREL BEFORE LOSING INSURANCE, LAST SEEN AUGUST 2017 PNEUMONIA OBESITY, LOST 100 POUNDS INTENTIONALLY WITHOUT WEIGHT LOSS SURGERY ANEMIA: UNCERTAIN CAUSE, DIAGNOSIS BY CARDIOLOGY, ON IRON OBSTRUCTIVE SLEEP APNEA, DR. WARREN, USES BIPAP EVERY NIGHT CORONARY ARTERY DISEASE-RACING HEART, SEE DR SHETH ALLERGIES SEASONAL: RED, ITCHY EYES, HEADACHE, NASAL CONGESTION - ALLERGY SURGICAL HISTORY L KNEE REPLACEMENT 2013 CHOLECYSTECTOMY LEFT SHOULDER REPAIR NOVASURE ABLATION CARDIAC CATHETERIZATION 06/2018 GROWTH REMOVAL FROM INSIDE OF NOSE 06/06/19 FAMILY HISTORY FATHER: , RHEUMATOID, DIAGNOSED WITH HYPERTENSION, UNSPECIFIED HEART DISEASE, DIABETES, UNSPECIFIED CEREBRAL ARTERY OCCLUSION WITH CEREBRAL INFARCTION MOTHER: , RHEUMATOID, UNSPECIFIED HEART DISEASE, OTHER MALIGNANT NEOPLASM OF UNSPECIFIED SITE, HYPERTENSION MATERNAL GRAND MOTHER: RHEUMATOID 2 SISTER(S) - HEALTHY. 1 SON(S) - HEALTHY. MOTHER: LUNG CA\\\\\\\\\\\\\\\\NOLDER SISTER()- CHF, HEART DISEASE\\\\\\\\\\\\\\\\N. SOCIAL HISTORY GENERAL: TOBACCO USE ARE YOU A:CURRENT SMOKER ARE YOU INTERESTED IN QUITTING?READY TO QUIT PT CURRENTLY USING WELLBUTRIN TO HELP QUIT HOW MANY CIGARETTES A DAY DO YOU SMOKE?5 OR LESS APPROX 4/DAY HOW SOON AFTER YOU WAKE UP DO YOU SMOKE YOUR FIRST CIGARETTE?6-30 MIN HOW OFTEN DO YOU SMOKE CIGARETTES?EVERY DAY PATIENT COUNSELED ON THE DANGERS OF TOBACCO USE AND URGED TO QUIT:06/20/2019 SMOKING CESSATION INFORMATION GIVEN06/11/2019 VAPORNO E-CIGARETTENO LATEX QUESTIONNAIRE LATEX ALLERGY : HAVE YOU EVER DEVELOPED ANY TYPE OF REACTION AFTER HANDLING LATEX PRODUCTS SUCH RUBBER GLOVES, CONDOMS, DIAPHRAGMS, BALLOONS, SOCKS, OR UNDERWEAR?NO LATEX ALLERGY : HAVE YOU EVER DEVELOPED ANY TYPE OF REACTION DURING OR AFTER DENTAL APPOINTMENT, VAGINAL/RECTAL EXAMINATION, SURGICAL PROCEDURE, OR ANY OTHER EXPOSURE?NO DATE ASKED : 04/12/2019 LATEX RISK : HAVE YOU EVER HAD ANY DIFFICULTY BREATHING OR HIVES AFTER EATING OR HANDLING ANY FRUITS, OR VEGETABLES; SUCH KIWI, BANANAS, STONE FRUITS, OR CHESTNUTSNO LATEX RISK : DO YOU HAVE A PREVIOUS PERSONAL HISTORY OF MORE THAN NINE SURGERIES, SPINA BIFIDA, OR REPEATED CATHERIZATIONS? NO LATEX RISK : ARE YOU FREQUENTLY EXPOSED TO LATEX PRODUCTS IN YOUR OCCUPATION?NO BMI CARE GOAL FOLLOW-UP ABOVE NORMAL BMI FOLLOW-UPDIETARY MANAGEMENT EDUCATION, GUIDANCE, AND COUNSELING ALCOHOL SCREENING DID YOU HAVE A DRINK CONTAINING ALCOHOL IN THE PAST YEAR?NO POINTS0 INTERPRETATIONNEGATIVE RECREATIONAL DRUG USE DRUG USE?NO CAFFEINE CAFFEINE USE?YES HOW OFTEN AND HOW MUCH? 2 CUPS COFFEE PER DAY DAILY BASIS SEXUAL HX HAD SEX IN THE LAST 12 MONTHS (VAGINAL, ORAL, OR ANAL)?NO HAVE YOU EVER HAD AN STD?NO HIV / HEP-C SCREENING HIV TEST OFFERED TO PATIENT:YES DATE OFFERED:05/16/2018 TEST ACCEPTED:NO HEP-C TEST OFFERED TO PATIENT:NO REASON:PATIENT DECLINED BROCHURE PROVIDED TO PATIENTYES AMISH [id number] PRESYBETERIAN LANGUAGE LANGUAGES SPOKEN:CYMRAES EDUCATION LEVEL OF EDUCATION:HIGH SCHOOL LEARNING BARRIERS / SPECIAL NEEDS CHANGE FROM LAST VISIT?NO BARRIERS TO LEARNING?NO HEARING IMPAIRED?NO VISION IMPAIRED?YES READING GLASSES COGNITIVELY IMPAIRED?NO READINESS TO LEARN?YES LEARNING PREFERENCES?NO LEARNING CAPABILITIES PRESENT?YES EMOTIONAL BARRIERS?NO SPECIAL DEVICES?YES :OTHER BIPAP PRODUCTION ADMINISTRATOR NEEDED?NO DOMESTIC VIOLENCE DO YOU FEEL SAFE IN YOUR ENVIRONMENT?YES 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 EXERCISE: NO REGULAR EXERCISE. MARITAL STATUS: SINGLE. OTHERS AT HOME: NONE. NEW PATIENT PAIN DIARY TODAY'S VISIT 06/20/2019 PATIENT DESCRIBES PAIN :HAVE IT ALL THE TIME, SHARP, STABBING, TENDER, SORE, SHOOTING FROM 0-10, WHAT LEVEL IS YOUR PAIN TODAY?10 PRECIPITATING FACTORS NOTHING IN PARTICULAR ALLEVIATING FACTORS WALKING IMPACT ON FUNCTION LIMITS HER ON WHAT SHE IS ABLE TO DO PAIN CLINIC PFS, CLERGY, PUBLIC HEALTH REFERRALS PFS REFERRAL NEEDED?NO CLERGY REFERRAL NEEDED?NO PUBLIC HEALTH REFERRAL NEEDED?NO HAS THE PATIENT BEEN EDUCATED REGARDING HIS/HER PLAN OF CARE?YES HAS THE PATIENT BEEN EDUCATED REGARDING PAIN, THE RISK FOR PAIN, THE IMPORTANCE OF EFFECTIVE PAIN MANAGEMENT, AND THE PAIN ASSESSMENT PROCESS?YES ADVANCE DIRECTIVE ADVANCE DIRECTIVE DISCUSSED WITH PATIENT:YES 06/20/19 PATEINT STATES SHE HAS A HCP - SONIA BENNETT (SISTER) [phone], ALSO HAS A DNR HOSPITALIZATION/MAJOR DIAGNOSTIC PROCEDURE SURGICALY RELATED PNEUMONIA-RESP FAILURE ON BIPAP 12/28/15 INFLUENZA/COPD 05/08/18 CHEST PAIN - CARDIAC CATHETERIZATION 06/2018 REVIEW OF SYSTEMS REVIEWED BY: PROVIDER: TRINIDAD PARNELL-Ray . CONSTITUTIONAL: ANY CHANGE IN YOUR MEDICAL CONDITION? NO . CHILLS NO . FEVER NO . INFECTION: DO YOU HAVE NEW INFECTIONS? NO . DO YOU HAVE HISTORY OF MRSA? NO . MUSCULOSKELETAL: ANY NEW PATTERNS OF PAIN OR NUMBNESS? NO . GASTROENTEROLOGY: ANY NEW CHANGE IN BOWEL CONTROL? NO . GENITOURINARY: ANY NEW CHANGE IN BLADDER CONTROL? NO . IS THERE A CHANCE YOU COULD BE ? NO . HEMATOLOGY/LYMPH: DO YOU TAKE ANY BLOOD THINNERS? (FOR EXAMPLE- COUMADIN, PLAVIX, AGGRENOX, PLATEL, PRADAXA, OR XARELTO) NO . WHEN WAS YOUR LAST DOSE? DATE: TIME: . NEUROLOGY: HAVE YOU FALLEN IN THE PAST 12 MONTHS? NO . ANY NEW EXTREMITY NUMBNESS OR WEAKNESS? NO . CARDIOLOGY: DO YOU HAVE A PACEMAKER OR DEFIBRILLATOR? NO . RESPIRATORY: HAVE YOU BEEN SICK IN THE PAST WEEK? NO . FEVER NO . FLU LIKE SYMPTOMS? NO . COUGH NO . INTEGUMENTARY: DO YOU HAVE ANY RASHES OR OPEN SORES? NO . ALLERGIC/IMMUNO: ARE YOU ALLERGIC TO IV DYE? NO . ANY NEW ALLERGIES? NO . PSYCHIATRIC: DO YOU HAVE THOUGHTS OF HURTING YOURSELF OR SOMEONE ELSE? NO . ARE YOU ABUSED, NEGLECTED, OR IN AN UNSAFE ENVIRONMENT? NO . ENDOCRINOLOGY: ARE YOU DIABETIC? YES, FSBS THIS A.M. 176 . OTHER: DO YOU NEED ANY PRESCRIPTIONS? YES . IF YES, PLEASE LIST: LYRICA, INDOMETHACIN,OXYCODONE/ACETAMIN . ANY NEW PROBLEMS WITH YOUR MEDICATIONS? NO . WHEN DID YOU LAST EAT? ____ . WHEN DID YOU LAST DRINK? ____ . WHAT DID YOU LAST DRINK? ____ . NAME OF PERSON DRIVING YOU HOME? ____ . DO YOU HAVE ANY OTHER QUESTIONS OR CONCERNS NO . EXAMINATION GENERAL EXAMINATION: GENERALNO ACUTE DISTRESS, WELL NOURISHED AND HYDRATED. PSYCHAPPROPRIATE MOOD AND AFFECT , , ORIENTED X 3 . ASSESSMENTS PAIN IN LEFT KNEE - M25.562 (PRIMARY) PAIN IN LEFT SHOULDER - M25.512 TREATMENT PAIN IN LEFT KNEE REFILL LYRICA CAPSULE, 200 MG, 1 CAPSULE, ORALLY, TID MDD=3, 30 DAYS, 90, NOTES: WORKERS COMP CLINICAL NOTES: 58-YEAR-OLD FEMALE IN FOR WORKER'S COMP. CHRONIC PAIN FOLLOW-UP. GIVEN PRESENTING SYMPTOMS RECOMMENDED CONTINUATION OF CURRENT MEDICATION REGIMEN WITH FOLLOW-UP IN 2 MONTHS. PATIENT HAS EXPRESSED UNDERSTANDING OF AND WAS IN AGREEMENT WITH TREATMENT PLAN. GIVEN TIME TO ASK QUESTIONS AND EXPRESS CONCERNS. , ISTOP REGISTRY REVIEWED AND DEMONSTRATES COMPLLIANCE. (REF # [id number] ) BRINGS IN MEDICATIONS WHICH IS APPROPRIATE FOR WHAT WAS DISPENSED. RECENT URINE TOXICOLOGY REVIEWED. NO UNAUTHORIZED MEDICATIONS. NO ILLICIT SUBSTANCES AND PRESCRIBED MEDICATIONS WERE PRESENT. TELEHEALTH VISIT PERFORMED VIA ZOOM. TIME SPENT WITH PATIENT 7 MINUTES. OTHERS NOTES: DUE TO VIRTUAL VISIT UNABLE TO DO V/S. PROCEDURES PN WORKMANS' COMP OPINION IN YOUR OPINION, WAS THE INCIDENT THAT THE PATIENT DESCRIBED THE COMPETENT MEDICAL CAUSE OF THIS INJURY/ILLNESS? YES ARE THE PATIENT'S COMPLAINTS CONSISTENT WITH HIS/HER HISTORY OF THE INJURY/ILLNESS? YES IS THE PATIENT'S HISTORY OF THE INJURY/ILLNESS CONSISTENT WITH YOUR OBJECTIVE FINDING? YES WHAT IS THE PERCENTAGE OF TEMPORARY IMPAIRMENT? TOTAL = 100% IS THE PATIENT WORKING? NO DOCTOR ON SITE: JOSE HAUSER MD DISPOSITION & COMMUNICATION FOLLOW UP 2 MONTHS (REASON: WORKER'S COMP. LEFT KNEE AND SHOULDER PAIN) ELECTRONICALLY SIGNED BY SOHEILA MEDRANO ON 06/21/2019 AT 08:54 AM EDT DISCLAIMER : THIS IS A VISIT SUMMARY EXTRACTED FROM THE [facility] CHART. IT IS NOT A COPY OF THE [facility] PROGRESS NOTE. PRETTY
== END ==
LOC: M TMPAIN 09:45 → M PAIN 09:45
PROVIDERS: ATTEND Family Medicine
DX: M25.562 Pain in left knee (principal); M25.512 Pain in left shoulder; E11.9 Type 2 diabetes mellitus without complications; I10 Essential (primary) hypertension; F17.210 Nicotine dependence, cigarettes, uncomplicated; Z79.4 Long term (current) use of insulin; Z79.82 Long term (current) use of aspirin; Z79.891 Long term (current) use of opiate analgesic; Z79.899 Other long term (current) drug therapy

== ENCOUNTER → 2019-06-20 | Outpatient (REF) | payer OTHER, MEDICAID ==
[~2019-06-20] MED LIST changes: +METF-791 PO; -METF-838 PO
[2019-06-20 16:18] LABS: BASO # 0.1 10^3/uL (0.0-0.2); BASO % 0.9 % (0.0-1.0); EOS # 0.3 10^3/uL (0.0-0.5); HEMOGLOBIN 14.2 g/dl (12.0-15.5); LYMPH % 23.9 % (24.0-44.0); MEAN CORPUSCULAR HEMOGLOBIN 27.4 pg (27.0-33.0); MEAN CORPUSCULAR HGB CONC 30.9 g/dl (32.0-36.5); MEAN CORPUSCULAR VOLUME 88.6 fl (80.0-96.0); MONO # 0.5 10^3/uL (0.0-0.8); MONO % 5.4 % (0.0-5.0); NEUTROPHILS # 5.6 10^3/uL (1.5-8.5); NEUTROPHILS % 66.6 % (36.0-66.0); PLATELET COUNT, AUTOMATED 281 10^3/uL (150-450); RED BLOOD COUNT 5.19 10^6/uL (4.00-5.40); WHITE BLOOD COUNT 8.5 10^3/uL (4.0-10.0)
[2019-06-20 16:29] LABS: CALCIUM LEVEL 9.1 MG/DL (8.5-10.1); CHOLESTEROL RISK RATIO 6.083 (<5); CREATININE FOR GFR 1.1 MG/DL (0.55-1.30); GLOMERULAR FILTRATION RATE 54.1 (>51); POTASSIUM SERUM 4.7 MEQ/L (3.5-5.1)
[2019-06-20 16:48] LABS: HEMOGLOBIN A1c 7.7 %
== END ==
LOC: M SFHCLERA 12:22
PROVIDERS: ATTEND Family Medicine
DX: E11.9 Type 2 diabetes mellitus without complications (principal); E78.5 Hyperlipidemia, unspecified
CPT/HCPCS: 80048; 80061; 82607; 83036; 85025; G0463

== ENCOUNTER → 2019-07-09 | Outpatient (CLI) | payer OTHER, MEDICAID ==
[~2019-07-09] MED LIST changes: -METF-791 PO; +METF-838 PO
--- NOTE | 2019-08-13 04:38 | ECWPNPC ---
PATIENT NAME: ESTHER MAE : 1960 GENDER: FEMALE VISIT DATE: 07/09/2019 DISCHARGE DATE: 07/09/19 1109 VISIT LOCKED DATE TIME: PHYSICIAN: FREDERICK MILES RESOURCE: FREDERICK MILES REASON FOR APPOINTMENT 1. BACK PAIN, IN CLINIC VISIT TO DISCUSS DCS TRIAL REVIEW MRI DONE 5-1 2. PAT DONE HISTORY OF PRESENT ILLNESS HISTORY OF PRESENT ILLNESS: PAIN THE PATIENT DESCRIBES THE PAINDURING THE LAST MONTH SEVERITY - PAIN SCORE OF9/10, 10/10 LOCATIONSLOWER BACK QUALITYACHING , STABBING DURATIONCONTINUOUS, CONSTANT, ALL DAY, AWAKENS FROM SLEEEP PAIN IS INCREASED BY:ACTIVITIES, PROLONGED STANDING PAIN IS DECREASED BY: LYING DOWN, OXYCODONE 58-YEAR-OLD FEMALE IN FOR CHRONIC PAIN FOLLOW-UP. SHE RATES HER PAIN CURRENTLY AT A 9-10 OUT OF 10 AND DESCRIBES IT ACHING, AND STABBING. PATIENT HAD RECENT MRI WHICH WILL BE REVIEWED WITH PATIENT TODAY. AT LAST VISIT DCS TRIAL WAS DISCUSSED WITH PATIENT AND SHE IS WISHING TO GO FORWARD TRIAL. FALL RISK SCREENING: SCREENING :NO FALLS REPORTED IN THE LAST YEAR CURRENT MEDICATIONS TAKING IRON 28 MG TABLET 1 TABLET ORALLY ONCE A DAY TAKING INCRUSE ELLIPTA 62.5 MCG/INH AEROSOL POWDER BREATH ACTIVATED 1 PUFF INHALATION ONCE A DAY TAKING IPRATROPIUM-ALBUTEROL 0.5-2.5 (3) MG/3ML SOLUTION 3 ML INHALATION EVERY 4 HRS NEEDED TAKING PROAIR HFA 108 (90 BASE) MCG/ACT AEROSOL SOLUTION 2 PUFFS NEEDED INHALATION EVERY 6 HRS TAKING ASPIR-81 81 MG TABLET DELAYED RELEASE 1 TABLET ORALLY ONCE A DAY TAKING CLOTRIMAZOLE 1 % CREAM 1 APPLICATION TO AFFECTED AREA OF LEFT FOOT EXTERNALLY TWICE A DAY NEEDED TAKING MISC. DEVICES - MISCELLANEOUS BP CUFF, CHECK ONCE A DAY, DX: I10. TAKING GLUCOMETER E11.9 CHECK ACHS TAKING BLOOD GLUCOSE TEST - STRIP E11.9 CHECK ACHS IN VITRO DIRECTED TAKING LANCETS MISC - MISCELLANEOUS E11.9 CHECK ACHS DIRECTED TAKING PRAVASTATIN SODIUM 80 MG TABLET 1 TABLET ORALLY ONCE A DAY TAKING CETIRIZINE HCL 10 MG TABLET 1 TABLET ORALLY ONCE A DAY TAKING TRIAMCINOLONE ACETONIDE 0.1 % CREAM 1 APPLICATION TO AFFECTED AREA EXTERNALLY TWICE A DAY TAKING DULOXETINE HCL 60 MG CAPSULE DELAYED RELEASE PARTICLES 1 CAPSULE ORALLY ONCE A DAY TAKING CYCLOBENZAPRINE HCL 10 MG TABLET 1 TABLET 1 TO 2 HOURS BEFORE BEDTIME ORALLY ONCE A DAY, NOTES: [facility] TAKING ROPINIROLE HCL 0.5 MG TABLET 2 TAB ORALLY AT BEDTIME TAKING PANTOPRAZOLE SODIUM 40 MG TABLET DELAYED RELEASE TAKE ONE TABLET BY MOUTH ONCE A DAY (STOP OMEPRAZOLE) TAKING METOPROLOL TARTRATE 25 MG TABLET 2 TABLET WITH FOOD IN AM PLUS 1 TABLET IN PM ORALLY DIRECTED, NOTES: PLEASE NOTE DOSE INCREASE. PLEASE DISCONTINUE THE LOSARTAN-HCTZ IN YOUR RECORDS. TAKING SPIRONOLACTONE 25 MG TABLET 1 TABLET ORALLY ONCE A DAY TAKING BUPROPION HCL ER (SR) 150 MG TABLET EXTENDED RELEASE 12 HOUR 1 TABLET ORALLY TWICE A DAY TAKING LYRICA 200 MG CAPSULE 1 CAPSULE ORALLY TID MDD=3, NOTES: WORKERS COMP TAKING JARDIANCE 25 MG TABLET 1 TABLET ORALLY ONCE A DAY, NOTES: DOSE INCREASE TAKING METFORMIN HCL 850 MG TABLET 1 TABLET WITH A MEAL ORALLY BID TAKING TRULICITY 1.5 MG/0.5ML SOLUTION PEN-INJECTOR DIRECTED SUBCUTANEOUS WEEKLY TAKING OXYCODONE-ACETAMINOPHEN 5-325 MG TABLET 1 TABLET NEEDED ORALLY FOR PAIN EVERY 8 HRS MDD4 TAKING INDOMETHACIN 50 MG CAPSULE 1 CAPSULE WITH FOOD OR MILK ORALLY NEEDED FOR PAIN TWICE A DAY NOT-TAKING NOVOLOG 100 UNIT/ML SOLUTION DIRECTED E11.9 SUBCUTANEOUS TID CC, NOTES: SLIDING SCALE: <=150: 0; 151-200: 3; 201-250: 6; 251-300: 9; 301-350: 12; 351-400: 15; MORE THAN 400: CALL CERTIFIED FORKLIFT OPERATOR PHYSICIAN NOT-TAKING LEVEMIR 100 UNIT/ML SOLUTION 15U IN AM AND 15U IN PM SUBCUTANEOUS DIRECTED NOT-TAKING EZETIMIBE 10 MG TABLET 1 TABLET ORALLY ONCE A DAY NOT-TAKING TIZANIDINE HCL 2 MG TABLET 1 TABLET NEEDED ORALLY THREE TIMES A DAY NOT-TAKING ENBREL SURECLICK 50 MG/ML SOLUTION AUTO-INJECTOR 1 ML SUBCUTANEOUS WEEKLY NOT-TAKING LOSARTAN POTASSIUM-HCTZ 50-12.5 MG TABLET 1 TABLET ORALLY ONCE A DAY NOT-TAKING DEBROX 6.5 % SOLUTION 5 DROPS INTO LEFT AND RIGHT EARS OTIC TWICE A DAY NOT-TAKING MACROBID 100 MG CAPSULE 1 CAPSULE WITH FOOD ORALLY EVERY 12 HRS NOT-TAKING KEFLEX 500 MG CAPSULE 1 CAPSULE ORALLY EVERY 12 HRS NOT-TAKING POLYTRIM 36212-9.1 UNIT/ML SOLUTION 1 DROP INTO RIGHT EYE OPHTHALMIC FOUR TIMES A DAY MEDICATION LIST REVIEWED AND RECONCILED WITH THE PATIENT PAST MEDICAL HISTORY DM, A1C GOAL 7% CHRONIC LUNG DISEASE, FOLLOWS WITH DR. WARREN GERD, HAS NEVER SEEN A GI DOCTOR, DENIES HAVING HAD ESOPHAGOGASTRODUODENOSCOPY. ARTHRITIS BACK PAIN/NECK PAIN, CHRONIC SHOULDER PAIN AND CHRONIC LEG PAIN FOR WHICH SHE IS ON PERCOCET X 4 YEARS HYPERLIPIDEMIA HYPERTENSION, DENIES HISTORY OF HEART FAILURE, S/P HEART CATH REPORTEDLY NEG 2006, HAS HISTORY OF "SILENT HEART ATTACK" SO FOLLOWS DR. SHETH WHO DID STRESS JULY 2017, SHE GETS RLS FIBROMYALGIA RA, FOLLOWS WITH RHEUMATOLOGY PA IN [facility] [place] [facility], PREVIOUSLY ENBREL BEFORE LOSING INSURANCE, LAST SEEN AUGUST 2017 PNEUMONIA OBESITY, LOST 100 POUNDS INTENTIONALLY WITHOUT WEIGHT LOSS SURGERY ANEMIA: UNCERTAIN CAUSE, DIAGNOSIS BY CARDIOLOGY, ON IRON OBSTRUCTIVE SLEEP APNEA, DR. WARREN, USES BIPAP EVERY NIGHT CORONARY ARTERY DISEASE-RACING HEART, SEE DR SHETH ALLERGIES SEASONAL: RED, ITCHY EYES, HEADACHE, NASAL CONGESTION - ALLERGY SURGICAL HISTORY L KNEE REPLACEMENT 2013 CHOLECYSTECTOMY LEFT SHOULDER REPAIR NOVASURE ABLATION CARDIAC CATHETERIZATION 06/2018 GROWTH REMOVAL FROM INSIDE OF NOSE 06/06/19 FAMILY HISTORY FATHER: , RHEUMATOID, DIAGNOSED WITH HYPERTENSION, UNSPECIFIED HEART DISEASE, UNSPECIFIED CEREBRAL ARTERY OCCLUSION WITH CEREBRAL INFARCTION, DIABETES MOTHER: , RHEUMATOID, HYPERTENSION, UNSPECIFIED HEART DISEASE, OTHER MALIGNANT NEOPLASM OF UNSPECIFIED SITE MATERNAL GRAND MOTHER: RHEUMATOID 2 SISTER(S) - HEALTHY. 1 SON(S) - HEALTHY. MOTHER: LUNG CA\\\\\\\\\\\\\\\\NOLDER SISTER()- CHF, HEART DISEASE\\\\\\\\\\\\\\\\N. SOCIAL HISTORY GENERAL: TOBACCO USE ARE YOU A:CURRENT SMOKER ARE YOU INTERESTED IN QUITTING?READY TO QUIT PT CURRENTLY USING WELLBUTRIN TO HELP QUIT HOW MANY CIGARETTES A DAY DO YOU SMOKE?5 OR LESS APPROX 4/DAY HOW SOON AFTER YOU WAKE UP DO YOU SMOKE YOUR FIRST CIGARETTE?6-30 MIN HOW OFTEN DO YOU SMOKE CIGARETTES?EVERY DAY PATIENT COUNSELED ON THE DANGERS OF TOBACCO USE AND URGED TO QUIT:07/08/2019 SMOKING CESSATION INFORMATION GIVEN06/24/2019 VAPORNO E-CIGARETTENO LATEX QUESTIONNAIRE LATEX ALLERGY : HAVE YOU EVER DEVELOPED ANY TYPE OF REACTION AFTER HANDLING LATEX PRODUCTS SUCH RUBBER GLOVES, CONDOMS, DIAPHRAGMS, BALLOONS, SOCKS, OR UNDERWEAR?NO LATEX ALLERGY : HAVE YOU EVER DEVELOPED ANY TYPE OF REACTION DURING OR AFTER DENTAL APPOINTMENT, VAGINAL/RECTAL EXAMINATION, SURGICAL PROCEDURE, OR ANY OTHER EXPOSURE?NO LATEX RISK : HAVE YOU EVER HAD ANY DIFFICULTY BREATHING OR HIVES AFTER EATING OR HANDLING ANY FRUITS, OR VEGETABLES; SUCH KIWI, BANANAS, STONE FRUITS, OR CHESTNUTSNO LATEX RISK : DO YOU HAVE A PREVIOUS PERSONAL HISTORY OF MORE THAN NINE SURGERIES, SPINA BIFIDA, OR REPEATED CATHERIZATIONS? NO LATEX RISK : ARE YOU FREQUENTLY EXPOSED TO LATEX PRODUCTS IN YOUR OCCUPATION?NO DATE ASKED : 07/08/2019 BMI CARE GOAL FOLLOW-UP ABOVE NORMAL BMI FOLLOW-UPDIETARY MANAGEMENT EDUCATION, GUIDANCE, AND COUNSELING ALCOHOL SCREENING DID YOU HAVE A DRINK CONTAINING ALCOHOL IN THE PAST YEAR?NO POINTS0 INTERPRETATIONNEGATIVE RECREATIONAL DRUG USE DRUG USE?NO CAFFEINE CAFFEINE USE?YES HOW OFTEN AND HOW MUCH? 2 CUPS COFFEE PER DAY DAILY BASIS SEXUAL HX HAD SEX IN THE LAST 12 MONTHS (VAGINAL, ORAL, OR ANAL)?NO HAVE YOU EVER HAD AN STD?NO HIV / HEP-C SCREENING HIV TEST OFFERED TO PATIENT:YES DATE OFFERED:05/16/2018 TEST ACCEPTED:NO HEP-C TEST OFFERED TO PATIENT:NO REASON:PATIENT DECLINED BROCHURE PROVIDED TO PATIENTYES SHINTO [id number] AMISH LANGUAGE LANGUAGES SPOKEN:SETSWANA EDUCATION LEVEL OF EDUCATION:HIGH SCHOOL LEARNING BARRIERS / SPECIAL NEEDS CHANGE FROM LAST VISIT?NO BARRIERS TO LEARNING?NO HEARING IMPAIRED?NO VISION IMPAIRED?YES READING GLASSES COGNITIVELY IMPAIRED?NO READINESS TO LEARN?YES LEARNING PREFERENCES?NO LEARNING CAPABILITIES PRESENT?YES EMOTIONAL BARRIERS?NO SPECIAL DEVICES?YES :OTHER BIPAP BOILING OFF WINDER NEEDED?NO DOMESTIC VIOLENCE DO YOU FEEL SAFE IN YOUR ENVIRONMENT?YES 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 EXERCISE: NO REGULAR EXERCISE. MARITAL STATUS: SINGLE. OTHERS AT HOME: NONE. NEW PATIENT PAIN DIARY TODAY'S VISIT 07/08/19 PATIENT DESCRIBES PAIN :HAVE IT ALL THE TIME, SHARP, STABBING, TENDER, SORE, SHOOTING FROM 0-10, WHAT LEVEL IS YOUR PAIN TODAY?7 PRECIPITATING FACTORS NOTHING IN PARTICULAR ALLEVIATING FACTORS WALKING IMPACT ON FUNCTION LIMITS HER ON WHAT SHE IS ABLE TO DO PAIN CLINIC PFS, CLERGY, PUBLIC HEALTH REFERRALS PFS REFERRAL NEEDED?NO CLERGY REFERRAL NEEDED?NO PUBLIC HEALTH REFERRAL NEEDED?NO WAS THE PROVIDER NOTIFIED OF ANY PERTINENT INFO?YES HAS THE PATIENT BEEN EDUCATED REGARDING HIS/HER PLAN OF CARE?YES HAS THE PATIENT BEEN EDUCATED REGARDING PAIN, THE RISK FOR PAIN, THE IMPORTANCE OF EFFECTIVE PAIN MANAGEMENT, AND THE PAIN ASSESSMENT PROCESS?YES ADVANCE DIRECTIVE ADVANCE DIRECTIVE DISCUSSED WITH PATIENT:YES PATEINT STATES SHE HAS A HCP - SONIA BENNETT (SISTER) [phone], ALSO HAS A DNR HOSPITALIZATION/MAJOR DIAGNOSTIC PROCEDURE SURGICALY RELATED PNEUMONIA-RESP FAILURE ON BIPAP 12/28/15 INFLUENZA/COPD 05/08/18 CHEST PAIN - CARDIAC CATHETERIZATION 06/2018 REVIEW OF SYSTEMS REVIEWED BY: PROVIDER: TRINIDAD MILES COMPENSATION DIRECTOR-C . CONSTITUTIONAL: ANY CHANGE IN YOUR MEDICAL CONDITION? NO . CHILLS NO . FEVER NO . INFECTION: DO YOU HAVE NEW INFECTIONS? NO . DO YOU HAVE HISTORY OF MRSA? NO . MUSCULOSKELETAL: ANY NEW PATTERNS OF PAIN OR NUMBNESS? NO . GASTROENTEROLOGY: ANY NEW CHANGE IN BOWEL CONTROL? PT STATES THAT SHE SUFFERS FROM CHRONIC DIARRHEA . GENITOURINARY: ANY NEW CHANGE IN BLADDER CONTROL? NO . IS THERE A CHANCE YOU COULD BE ? NO . HEMATOLOGY/LYMPH: DO YOU TAKE ANY BLOOD THINNERS? (FOR EXAMPLE- COUMADIN, PLAVIX, AGGRENOX, PLATEL, PRADAXA, OR XARELTO) NO . WHEN WAS YOUR LAST DOSE? DATE: TIME: . NEUROLOGY: HAVE YOU FALLEN IN THE PAST 12 MONTHS? NO . ANY NEW EXTREMITY NUMBNESS OR WEAKNESS? NO . CARDIOLOGY: DO YOU HAVE A PACEMAKER OR DEFIBRILLATOR? NO . RESPIRATORY: HAVE YOU BEEN SICK IN THE PAST WEEK? NO . FEVER NO . FLU LIKE SYMPTOMS? NO . COUGH NO . INTEGUMENTARY: DO YOU HAVE ANY RASHES OR OPEN SORES? NO . ALLERGIC/IMMUNO: ARE YOU ALLERGIC TO IV DYE? NO . ANY NEW ALLERGIES? NO . PSYCHIATRIC: DO YOU HAVE THOUGHTS OF HURTING YOURSELF OR SOMEONE ELSE? NO . ARE YOU ABUSED, NEGLECTED, OR IN AN UNSAFE ENVIRONMENT? NO . ENDOCRINOLOGY: ARE YOU DIABETIC? YES . OTHER: DO YOU NEED ANY PRESCRIPTIONS? NO . IF YES, PLEASE LIST: ____ . ANY NEW PROBLEMS WITH YOUR MEDICATIONS? NO . WHEN DID YOU LAST EAT? ____ . WHEN DID YOU LAST DRINK? ____ . WHAT DID YOU LAST DRINK? ____ . NAME OF PERSON DRIVING YOU HOME? ____ . DO YOU HAVE ANY OTHER QUESTIONS OR CONCERNS NO . VITAL SIGNS WT 238.0 LBS, HT 66.75 IN, BMI 37.55 INDEX, BP 162/83 MM HG, HR 81 /MIN, RR 18 /MIN, TEMP 97.4 F, OXYGEN SAT % 96%, NA INITIALS AW 1023. EXAMINATION GENERAL EXAMINATION: GENERALNO ACUTE DISTRESS, WELL NOURISHED AND HYDRATED. PSYCHAPPROPRIATE MOOD AND AFFECT . LUNGS:CLEAR TO AUSCULTATION BILATERALLY, NO WHEEZES, RHONCHI, RALES. HEART:NO MURMURS, REGULAR RATE AND RHYTHM. ASSESSMENTS INTERVERTEBRAL DISC DISORDERS WITH RADICULOPATHY, LUMBOSACRAL REGION - M51.17 (PRIMARY) TREATMENT INTERVERTEBRAL DISC DISORDERS WITH RADICULOPATHY, LUMBOSACRAL REGION CLINICAL NOTES: 58-YEAR-OLD FEMALE IN FOR CHRONIC PAIN FOLLOW-UP. DISCUSSED MRI WITH PATIENT AND IT WAS DECIDED WE WOULD GO FORWARD WITH DCS TRIAL. PATIENT HAS EXPRESSED UNDERSTANDING OF AND WAS IN AGREEMENT WITH TREATMENT PLAN. GIVEN TIME TO ASK QUESTIONS AND EXPRESS CONCERNS. , ISTOP REGISTRY REVIEWED AND DEMONSTRATES COMPLLIANCE. (REF # [id number] ) BRINGS IN MEDICATIONS WHICH IS APPROPRIATE FOR WHAT WAS DISPENSED. RECENT URINE TOXICOLOGY REVIEWED. NO UNAUTHORIZED MEDICATIONS. NO ILLICIT SUBSTANCES AND PRESCRIBED MEDICATIONS WERE PRESENT. PROCEDURE CODES [id number] ESTABILISHED PATIENT [facility] CHARGE DISPOSITION & COMMUNICATION FOLLOW UP POST EVAL (REASON: PSYCH EVAL) ELECTRONICALLY SIGNED BY SOHEILA MEDRANO ON 08/12/2019 AT 02:09 PM EDT DISCLAIMER : THIS IS A VISIT SUMMARY EXTRACTED FROM THE [employer] CHART. IT IS NOT A COPY OF THE [employer] PROGRESS NOTE. PRETTY
== END ==
LOC: M PAIN 10:30
PROVIDERS: ATTEND Family Medicine
DX: M51.17 Intervertebral disc disorders with radiculopathy, lumbosacral region (principal)

== ENCOUNTER → 2019-08-16 | Outpatient (CLI) | payer OTHER, MEDICAID ==
--- NOTE | 2019-08-20 00:24 | ECWPNPC ---
PATIENT NAME: ESTHER MAE : 1960 GENDER: FEMALE VISIT DATE: 08/16/2019 DISCHARGE DATE: 08/16/19 1207 VISIT LOCKED DATE TIME: PHYSICIAN: JOSE CORTEZ MD RESOURCE: JOSE CORTEZ MD REASON FOR APPOINTMENT 1. DISCUSS DCS TRIAL HISTORY OF PRESENT ILLNESS GENERAL: 59 YEAR OLD FEMALE PATIENT WITH A HISTORY OF CHRONIC MULTIPLE BODY PAIN. THE PATIENT DESCRIBES HER PAIN CONSTANT, SHARP, STABBING, TENDER, SORE, SHOOTING WITH A PAIN SCORE OF 6-10/10 DEPENDING ON PHYSICAL ACTIVITY. THE PATIENT STATES HER NECK, LOW BACK, AND LEFT KNEE ARE THE WORST AREAS OF PAIN FOR HER. THE PATIENT SAYS HER PAIN BEGINS IN HER NECK AND RADIATES DOWN HER LEFT ARM WITH NUMBNESS IN HER LEFT FINGERS. THE PATIENT ALSO HAS PAIN IN HER LOW BACK THAT RADIATES DOWN HER LEFT LEG. THE PATIENT HAS HISTORY OF THREE KNEE SURGERIES, BUT HER PAIN PERSISTS. THE PATIENT SAYS HER PAIN IS CAUSING A LOT OF DISCOMFORT FOR HER AND IS AFFECTING HER ABILITY TO PERFORM HER DAILY ACTIVITIES SUCH MOVING AROUND AND CLEANING. THE PATIENT IS WONDERING IF A DCS TRIAL IS A GOOD SOLUTION FOR HER PAIN. THE PATIENT DENIES UNEXPLAINED WEIGHT LOSS, FEVER, CHILLS, NEW CHANGES IN HER URINARY OR BOWEL CONTROL. FALL RISK SCREENING: SCREENING :NO FALLS REPORTED IN THE LAST YEAR PAIN SCREENING: PATIENT HAS A COMPLAINT OF ACUTE OR CHRONIC PAIN :YES 08/15/19 INTENSITY OF PAIN (SCALE OF 1 TO 10):8 WHAT DOES YOUR PAIN FEEL LIKE:BURNING, CONTINOUS, STABBING PAIN IS INCREASED BY: ACTIVITY PAIN IS DECREASED BY: RESTING, WALKING NURSING NOTE: -. PAIN CENTER INTAKE QUESTIONS: DO YOU HAVE A HISTORY OF MRSA? :NO DO YOU TAKE A BLOOD THINNERS? :NO DO YOU HAVE ANY BLEEDING DISORDERS? :NO ANY NEW NUMBNESS OR WEAKNESS IN YOUR LEGS OR ARMS? :NO ANY PACEMAKER,DEFIBRILLATOR, OR DORSAL COLUMN STIMULATOR? :NO DO YOU HAVE ANY RASHES OR OPEN SORES? :NO ARE YOU ALLERGIC TO IV DYE? :NO ARE YOU DIABETIC? :YES ANY NEW PROBLEMS WITH YOUR MEDICATIONS? :NO HAVE YOU RECEIVED A VACCINE IN THE PAST 30 DAYS? :NO DO YOU PLAN TO RECEIVE A VACCINE IN THE NEXT 21 DAYS? :NO DO YOU NEED ANY PRESCRIPTION? :NO DO YOU TAKE ANY IMMUNOSUPPRESSIVE MEDICATIONS? :NO IS THERE A CHANCE YOU COULD BE ? :NO ARE YOU BREAST FEEDING? :NO CURRENT MEDICATIONS TAKING EZETIMIBE 10 MG TABLET 1 TABLET ORALLY ONCE A DAY TAKING IRON 28 MG TABLET 1 TABLET ORALLY ONCE A DAY TAKING INCRUSE ELLIPTA 62.5 MCG/INH AEROSOL POWDER BREATH ACTIVATED 1 PUFF INHALATION ONCE A DAY TAKING IPRATROPIUM-ALBUTEROL 0.5-2.5 (3) MG/3ML SOLUTION 3 ML INHALATION EVERY 4 HRS NEEDED TAKING PROAIR HFA 108 (90 BASE) MCG/ACT AEROSOL SOLUTION 2 PUFFS NEEDED INHALATION EVERY 6 HRS TAKING ASPIR-81 81 MG TABLET DELAYED RELEASE 1 TABLET ORALLY ONCE A DAY TAKING CLOTRIMAZOLE 1 % CREAM 1 APPLICATION TO AFFECTED AREA OF LEFT FOOT EXTERNALLY TWICE A DAY NEEDED TAKING MISC. DEVICES - MISCELLANEOUS BP CUFF, CHECK ONCE A DAY, DX: I10. TAKING GLUCOMETER E11.9 CHECK ACHS TAKING BLOOD GLUCOSE TEST - STRIP E11.9 CHECK ACHS IN VITRO DIRECTED TAKING LANCETS MISC - MISCELLANEOUS E11.9 CHECK ACHS DIRECTED TAKING PRAVASTATIN SODIUM 80 MG TABLET 1 TABLET ORALLY ONCE A DAY TAKING CETIRIZINE HCL 10 MG TABLET 1 TABLET ORALLY ONCE A DAY TAKING TRIAMCINOLONE ACETONIDE 0.1 % CREAM 1 APPLICATION TO AFFECTED AREA EXTERNALLY TWICE A DAY TAKING CYCLOBENZAPRINE HCL 10 MG TABLET 1 TABLET 1 TO 2 HOURS BEFORE BEDTIME ORALLY ONCE A DAY, NOTES: [facility] TAKING ROPINIROLE HCL 0.5 MG TABLET 2 TAB ORALLY AT BEDTIME TAKING PANTOPRAZOLE SODIUM 40 MG TABLET DELAYED RELEASE TAKE ONE TABLET BY MOUTH ONCE A DAY (STOP OMEPRAZOLE) TAKING SPIRONOLACTONE 25 MG TABLET 1 TABLET ORALLY ONCE A DAY TAKING BUPROPION HCL ER (SR) 150 MG TABLET EXTENDED RELEASE 12 HOUR 1 TABLET ORALLY TWICE A DAY TAKING JARDIANCE 25 MG TABLET 1 TABLET ORALLY ONCE A DAY, NOTES: DOSE INCREASE TAKING TRULICITY 1.5 MG/0.5ML SOLUTION PEN-INJECTOR DIRECTED SUBCUTANEOUS WEEKLY TAKING DULOXETINE HCL 60 MG CAPSULE DELAYED RELEASE PARTICLES 1 CAPSULE ORALLY ONCE A DAY TAKING OXYCODONE-ACETAMINOPHEN 5-325 MG TABLET 1 TABLET NEEDED ORALLY FOR PAIN EVERY 8 HRS MDD4 TAKING INDOMETHACIN 50 MG CAPSULE 1 CAPSULE WITH FOOD OR MILK ORALLY NEEDED FOR PAIN TWICE A DAY TAKING LYRICA 200 MG CAPSULE 1 CAPSULE ORALLY TID MDD=3, NOTES: WORKERS COMP TAKING METOPROLOL TARTRATE 25 MG TABLET 2 TABLET WITH FOOD IN AM PLUS 1 TABLET IN PM ORALLY DIRECTED, NOTES: PLEASE NOTE DOSE INCREASE. PLEASE DISCONTINUE THE LOSARTAN-HCTZ IN YOUR RECORDS. TAKING METFORMIN HCL 850 MG TABLET 1 TABLET WITH A MEAL ORALLY BID NOT-TAKING BACTRIM DS 800-160 MG TABLET 1 TABLET ORALLY TWICE A DAY MEDICATION LIST REVIEWED AND RECONCILED WITH THE PATIENT PAST MEDICAL HISTORY DM, A1C GOAL 7% CHRONIC LUNG DISEASE, FOLLOWS WITH DR. WARREN GERD, HAS NEVER SEEN A GI DOCTOR, DENIES HAVING HAD ESOPHAGOGASTRODUODENOSCOPY. ARTHRITIS BACK PAIN/NECK PAIN, CHRONIC SHOULDER PAIN AND CHRONIC LEG PAIN FOR WHICH SHE IS ON PERCOCET X 4 YEARS HYPERLIPIDEMIA HYPERTENSION, DENIES HISTORY OF HEART FAILURE, S/P HEART CATH REPORTEDLY NEG 2006, HAS HISTORY OF "SILENT HEART ATTACK" SO FOLLOWS DR. SHETH WHO DID STRESS JULY 2017, SHE GETS RLS FIBROMYALGIA RA, FOLLOWS WITH RHEUMATOLOGY PA IN [facility], PREVIOUSLY ENBREL BEFORE LOSING INSURANCE, LAST SEEN AUGUST 2017 PNEUMONIA OBESITY, LOST 100 POUNDS INTENTIONALLY WITHOUT WEIGHT LOSS SURGERY ANEMIA: UNCERTAIN CAUSE, DIAGNOSIS BY CARDIOLOGY, ON IRON OBSTRUCTIVE SLEEP APNEA, DR. WARREN, USES BIPAP EVERY NIGHT CORONARY ARTERY DISEASE-RACING HEART, SEE DR SHETH LUMBAR SPINE- BULGING/COMPRESSED DISCS ALLERGIES SEASONAL: RED, ITCHY EYES, HEADACHE, NASAL CONGESTION - ALLERGY SURGICAL HISTORY L KNEE REPLACEMENT 2013 CHOLECYSTECTOMY LEFT SHOULDER REPAIR NOVASURE ABLATION CARDIAC CATHETERIZATION 06/2018 GROWTH REMOVAL FROM INSIDE OF NOSE 06/06/19 FAMILY HISTORY FATHER: , RHEUMATOID, DIAGNOSED WITH DIABETES, HYPERTENSION, UNSPECIFIED HEART DISEASE, UNSPECIFIED CEREBRAL ARTERY OCCLUSION WITH CEREBRAL INFARCTION MOTHER: , RHEUMATOID, OTHER MALIGNANT NEOPLASM OF UNSPECIFIED SITE, HYPERTENSION, UNSPECIFIED HEART DISEASE MATERNAL GRAND MOTHER: RHEUMATOID 2 SISTER(S) - HEALTHY. 1 SON(S) - HEALTHY. MOTHER: LUNG CA\\\\\\\\\\\\\\\\NOLDER SISTER()- CHF, HEART DISEASE\\\\\\\\\\\\\\\\N. SOCIAL HISTORY GENERAL: TOBACCO USE ARE YOU A:CURRENT SMOKER ARE YOU INTERESTED IN QUITTING?READY TO QUIT PT CURRENTLY USING WELLBUTRIN TO HELP QUIT COUNSELED THE PATIENT ON TOBACCO USE, CESSATION [id number]/18/2020 HOW MANY CIGARETTES A DAY DO YOU SMOKE?6-10 APPROX 4/DAY HOW SOON AFTER YOU WAKE UP DO YOU SMOKE YOUR FIRST CIGARETTE?6-30 MIN HOW OFTEN DO YOU SMOKE CIGARETTES?EVERY DAY PATIENT COUNSELED ON THE DANGERS OF TOBACCO USE AND URGED TO QUIT:07/08/2019 SMOKING CESSATION INFORMATION GIVEN06/24/2019 VAPORNO E-CIGARETTENO LATEX QUESTIONNAIRE LATEX ALLERGY : HAVE YOU EVER DEVELOPED ANY TYPE OF REACTION AFTER HANDLING LATEX PRODUCTS SUCH RUBBER GLOVES, CONDOMS, DIAPHRAGMS, BALLOONS, SOCKS, OR UNDERWEAR?NO LATEX ALLERGY : HAVE YOU EVER DEVELOPED ANY TYPE OF REACTION DURING OR AFTER DENTAL APPOINTMENT, VAGINAL/RECTAL EXAMINATION, SURGICAL PROCEDURE, OR ANY OTHER EXPOSURE?NO DATE ASKED : 08/14/2019 LATEX RISK : HAVE YOU EVER HAD ANY DIFFICULTY BREATHING OR HIVES AFTER EATING OR HANDLING ANY FRUITS, OR VEGETABLES; SUCH KIWI, BANANAS, STONE FRUITS, OR CHESTNUTSNO LATEX RISK : DO YOU HAVE A PREVIOUS PERSONAL HISTORY OF MORE THAN NINE SURGERIES, SPINA BIFIDA, OR REPEATED CATHERIZATIONS? NO LATEX RISK : ARE YOU FREQUENTLY EXPOSED TO LATEX PRODUCTS IN YOUR OCCUPATION?NO BMI CARE GOAL FOLLOW-UP ABOVE NORMAL BMI FOLLOW-UPDIETARY MANAGEMENT EDUCATION, GUIDANCE, AND COUNSELING ALCOHOL SCREENING DID YOU HAVE A DRINK CONTAINING ALCOHOL IN THE PAST YEAR?NO POINTS0 INTERPRETATIONNEGATIVE RECREATIONAL DRUG USE DRUG USE?NO CAFFEINE CAFFEINE USE?YES HOW OFTEN AND HOW MUCH? 2 CUPS COFFEE PER DAY DAILY BASIS SEXUAL HX HAD SEX IN THE LAST 12 MONTHS (VAGINAL, ORAL, OR ANAL)?NO HAVE YOU EVER HAD AN STD?NO HIV / HEP-C SCREENING HIV TEST OFFERED TO PATIENT:YES DATE OFFERED:05/16/2018 TEST ACCEPTED:NO HEP-C TEST OFFERED TO PATIENT:NO REASON:PATIENT DECLINED BROCHURE PROVIDED TO PATIENTYES [id number] LANGUAGES SPOKEN:ARABIC EDUCATION LEVEL OF EDUCATION:HIGH SCHOOL LEARNING BARRIERS / SPECIAL NEEDS CHANGE FROM LAST VISIT?NO BARRIERS TO LEARNING?NO HEARING IMPAIRED?NO VISION IMPAIRED?YES READING GLASSES COGNITIVELY IMPAIRED?NO READINESS TO LEARN?YES LEARNING PREFERENCES?NO LEARNING CAPABILITIES PRESENT?YES EMOTIONAL BARRIERS?NO SPECIAL DEVICES?YES :OTHER BIPAP 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 EXERCISE: NO REGULAR EXERCISE. MARITAL STATUS: SINGLE. OTHERS AT HOME: NONE. NEW PATIENT PAIN DIARY TODAY'S VISIT 07/08/19 PATIENT DESCRIBES PAIN :HAVE IT ALL THE TIME, SHARP, STABBING, TENDER, SORE, SHOOTING FROM 0-10, WHAT LEVEL IS YOUR PAIN TODAY?7 PRECIPITATING FACTORS NOTHING IN PARTICULAR ALLEVIATING FACTORS WALKING IMPACT ON FUNCTION LIMITS HER ON WHAT SHE IS ABLE TO DO PAIN CLINIC PFS, CLERGY, PUBLIC HEALTH REFERRALS PFS REFERRAL NEEDED?NO CLERGY REFERRAL NEEDED?NO PUBLIC HEALTH REFERRAL NEEDED?NO WAS THE PROVIDER NOTIFIED OF ANY PERTINENT INFO?YES HAS THE PATIENT BEEN EDUCATED REGARDING HIS/HER PLAN OF CARE?YES HAS THE PATIENT BEEN EDUCATED REGARDING PAIN, THE RISK FOR PAIN, THE IMPORTANCE OF EFFECTIVE PAIN MANAGEMENT, AND THE PAIN ASSESSMENT PROCESS?YES ADVANCE DIRECTIVE ADVANCE DIRECTIVE DISCUSSED WITH PATIENT:YES PATEINT STATES SHE HAS A HCP - SONIA BENNETT (SISTER) [phone], ALSO HAS A DNR HOSPITALIZATION/MAJOR DIAGNOSTIC PROCEDURE SURGICALY RELATED PNEUMONIA-RESP FAILURE ON BIPAP 12/28/15 INFLUENZA/COPD 05/08/18 CHEST PAIN - CARDIAC CATHETERIZATION 06/2018 REVIEW OF SYSTEMS CONSTITUTIONAL: ANY RECENT FEVER NO . CHILLS NO . WEIGHT CHANGE OF UNKNOWN REASONS NO . GASTROENTEROLOGY: NEW UNEXPLAINABLE CHANGES IN BOWEL CONTROL NO . CONSTIPATION NO . GENITOURINARY: ANY NEW CHANGE IN BLADDER CONTROL? NO . NEUROLOGY: NEW ONSET DIZZINESS OR NEUROLOGICAL CHANGES NOT MENTIONED NO . NEW NUMBNESS OR PAIN PATTERNS NOT MENTIONED AND PERTINENT TO TODAY'S VISIT NO . CARDIOLOGY: NEW CHEST PRESSURE NO . NEW CHEST PAIN NO . RESPIRATORY: UNEXPLAINABLE COUGH NO . NEW SHORTNESS OF BREATH NO . VITAL SIGNS WT 239.6 LBS, HT 66.75 IN, BMI 37.80 INDEX, BP 130/97 MM HG, HR 75 /MIN, RR 18 /MIN, TEMP 96.5 F, OXYGEN SAT % 96%, SAFE IN ENV? (Y/N) YES, NA INITIALS SC 10:40, REVIEWED BY: AHSAN. EXAMINATION GENERAL: PATIENT IS ALERT O X 3 AND COOPERATIVE. LUNGS CLEAR, TO AUSCULTATION. HEART: NO MURMURS OR GALLOPS; FACIAL CRANIAL NERVES ARE GROSSLY NORMAL. GOOD SYMMETRY OF FACIAL MUSCLE MOVEMENT. NORMAL VISUAL BERRY. PATIENT CAN ABDUCT RIGHT ARM WITH DIFFICULTY ABDUCTING HER LEFT ARM ONLY TO SHOULDER LEVEL. LEFT ARM IS WEAKER AT EXTENSION AND FLEXION. LEFT HAND DRAGGER OUT IS REDUCED COMPARED WITH THE RIGHT SIDE. TENDERNESS OVER THE PARASPINAL MUSCLE GROUP OF THE NECK AND LOW BACK AREAS. PAIN INCREASES OVER THE LUMBAR FACET JOINTS WITH EXTENSION AND ROTATION OF THE LOW BACK. TEN-INCH SURGICAL SCAR OVER LEFT KNEE. HYPERPATHIA OVER LEFT KNEE. LEFT KNEE XRAY DONE ON 03/20/2013 SHOWS STATUS POST SURGERY. MRI OF THE CERVICAL SPINE DONE ON 09/22/2014 SHOWS BULGING DISCS AT MULTIPLE LEVELS. ASSESSMENTS PAIN OF MULTIPLE SITES - R52 (PRIMARY) SPONDYLOSIS WITHOUT MYELOPATHY OR RADICULOPATHY, LUMBAR REGION - M47.816 CERVICAL DISC DISORDER WITH RADICULOPATHY, UNSPECIFIED CERVICAL REGION - M50.10 PAIN IN LEFT KNEE - M25.562 OTHER CHRONIC PAIN - G89.29 NEURALGIA - M79.2 STATUS POST LEFT KNEE SURGERY - Z98.890 TREATMENT PAIN OF MULTIPLE SITES CLINICAL NOTES: WE DISCUSSED SEVERAL ISSUES WITH MS. MAE'S PAIN MANAGEMENT CASE. THE PATIENT IS EXPERIENCING PAIN IN SEVERAL AREAS OF HER BODY, INCLUDING HER NECK, LEFT KNEE, AND LOW BACK AREAS. THE PATIENT QUESTIONED IF A DCS TRIAL WOULD BE A GOOD OPTION FOR HER PAIN. THERE ARE SEVERAL AREAS OF PAIN FOR THE PATIENT AT THE MOMENT, THAT I WOULD LIKE TO WORK WITH EACH AREA INDIVIDUALLY, AND THE PATIENT AGREED. IN TERMS OF THE PATIENT'S NECK PAIN, I WOULD CONSIDER PERFORMING A CERVICAL EPIDURAL STEROID INJECTION AND FOR THE LEFT KNEE PAIN, DIAGNOSTIC TESTS TO CONSIDER RADIOFREQUENCY ABLATION IN THE FUTURE. THE PATIENT'S MAIN PAIN IS HER LOW BACK, THEREFORE, DUE TO THE LUMBAR SPONDYLOSIS, I WOULD LIKE TO MOVE FORWARD WITH A BILATERAL L4-L5, L5-S1 DIAGNOSTIC LUMBAR FACET BLOCK #1 TO CONSIDER RADIOFREQUENCY. WE DISCUSSED THE BENEFITS, RISKS, AND ALTERNATIVES OF THE PROCEDURE AND THE PATIENT WOULD LIKE TO PROCEED. AFTER PERFORMING ALL PROCEDURES FOR EACH AREA AND SEEING HOW EACH WORKS FOR HER PAIN, WE MAY REVISIT THE OPTION OF A DCS TRIAL IN THE FUTURE. INSTRUCTIONS WERE GIVEN, QUESTIONS WERE ANSWERED, PATIENT REPORTS UNDERSTANDING AND AGREES WITH THE PLAN. I, SURAJ SANCHEZ, DOCUMENTED THE ABOVE INFORMATION ACTING A SCRIBE FOR DR. CORTEZ. I HAVE REVIEWED THE ABOVE DOCUMENT, WRITTEN BY SURAJ SANCHEZ SCRIBKen AND I VERIFY THAT IT IS ACCURATE. . OTHERS CLINICAL NOTES: PRE SCREENING CALL DONE 08/15/19 EM. WE DISCUSSED SEVERAL ISSUES WITH MS. MAE'S PAIN MANAGEMENT CASE. PROCEDURE CODES FA211 ESTABILISHED PATIENT [facility] FACILITY CHARGE [id number] CURRENT MEDS W/DOSAGES DOCUMENTED G8730 PAIN ASSESS POS TOOL F/U PLAN DOC DISPOSITION & COMMUNICATION FOLLOW UP 2 WEEKS (REASON: BILATERAL L4-L5, L5-S1 DFB #1) ELECTRONICALLY SIGNED BY JOSE CORTEZ MD, MD ON 08/19/2019 AT 03:37 PM EDT DISCLAIMER : THIS IS A VISIT SUMMARY EXTRACTED FROM THE [employer] CHART. IT IS NOT A COPY OF THE [employer] PROGRESS NOTE. PRETTY
== END ==
LOC: M PAIN 11:00
PROVIDERS: ATTEND Anesthesiology
DX: M47.816 Spondylosis without myelopathy or radiculopathy, lumbar region (principal); M50.10 Cervical disc disorder with radiculopathy, unspecified cervical region; M25.562 Pain in left knee; G89.29 Other chronic pain; M79.2 Neuralgia and neuritis, unspecified; Z98.890 Other specified postprocedural states

== ENCOUNTER → 2019-08-25 | Outpatient (CLI) | payer OTHER, MEDICAID | LOC: M LABSMTC 08:54 | PROVIDERS: ATTEND Anesthesiology | DX: Z03.818 Encounter for observation for suspected exposure to other biological agents ruled out (principal) | CPT/HCPCS: C9803; U0003 ==

== ENCOUNTER → 2019-08-28 | Outpatient (CLI) | payer OTHER, MEDICAID ==
[~2019-08-28] MED LIST changes: +BUPIVACAINE HCL 0.25% 30ML VIAL As Ordered ONE; +ISOVUE-M 300 61% 15ML VIAL As Ordered ONE; +LIDOCAINE 1% SDV 30ML VIAL As Ordered ONE
--- NOTE | 2019-08-28 14:04 | REP ---
Partial lumbar spine series: Two views . History: Injection procedure for pain. 41 seconds of fluoroscopy time is reported. Findings: A sequence of two fluoroscopically obtained last image hold procedural spot radiographs of the lumbar spine document needle position and contrast injection associated with injection procedure. Electronically Signed by Jose Muller MD 08/28/2019 01:55 P
--- NOTE | 2019-09-04 00:46 | ECWPNPC ---
PATIENT NAME: ESTHER MAE : 1960 GENDER: FEMALE VISIT DATE: 08/28/2019 DISCHARGE DATE: 08/28/19 1357 VISIT LOCKED DATE TIME: PHYSICIAN: JOSE CORTEZ MD RESOURCE: JOSE CORTEZ MD REASON FOR APPOINTMENT 1. DIAGNOSTIC FACET BLOCK L4/L5, L5/S1 #1 HISTORY OF PRESENT ILLNESS ASTHMA: GENERAL: -. FALL RISK SCREENING: SCREENING :NO FALLS REPORTED IN THE LAST YEAR PAIN SCREENING: PATIENT HAS A COMPLAINT OF ACUTE OR CHRONIC PAIN :YES LOCATION OF PAIN:NECK, UPPER BACK, MID BACK, LOW BACK, LEG(S) INTENSITY OF PAIN (SCALE OF 1 TO 10):7 WHAT DOES YOUR PAIN FEEL LIKE:CONTINOUS, SHARP, STABBING, THROBBING DURATION:CONTINOUS, CONSTANT, STEADY, ALL DAY, AWAKENS FROM SLEEP PAIN IS INCREASED BY: CLEANING, BENDING, LIFTING PAIN IS DECREASED BY: HOT SHOWER OR WALKING NURSING NOTE: -. PAIN CENTER INTAKE QUESTIONS: DO YOU HAVE A HISTORY OF MRSA? :NO DO YOU TAKE A BLOOD THINNERS? :NO DO YOU HAVE ANY BLEEDING DISORDERS? :YES HAS HAD TROUBLE WITH EXCESSIVE BLEEDING IN THE PAST ANY NEW NUMBNESS OR WEAKNESS IN YOUR LEGS OR ARMS? :NO ANY PACEMAKER,DEFIBRILLATOR, OR DORSAL COLUMN STIMULATOR? :NO DO YOU HAVE ANY RASHES OR OPEN SORES? :NO ARE YOU ALLERGIC TO IV DYE? :NO ARE YOU DIABETIC? :YES FSBS @ 0600 WAS 121 ANY NEW PROBLEMS WITH YOUR MEDICATIONS? :NO HAVE YOU RECEIVED A VACCINE IN THE PAST 30 DAYS? :NO DO YOU PLAN TO RECEIVE A VACCINE IN THE NEXT 21 DAYS? :NO DO YOU TAKE ANY IMMUNOSUPPRESSIVE MEDICATIONS? :YES TRIAMCINALONE ANY HISTORY OF SEIZURES? :NO ANY HISTORY OF CARDIAC ISSUES OR EVENTS? :YES CAD DO YOU HAVE SLEEP APNEA? :YES DO YOU WEAR A CPAP? BI-PAP ANY RECENT HEAD INJURY? :NO DO YOU HAVE ANY NEW INFECTIONS? :NO IS THERE A CHANCE YOU COULD BE ? :NO ARE YOU BREAST FEEDING? :NO WHEN DID YOU LAST EAT? : 08/26 1800 WHEN DID YOU LAST DRINK? : 08/27 06 WHAT DID YOU LAST DRINK? : WATER NAME OF PERSON DRIVING YOU HOME? : ANAI BISWAS DO YOU HAVE ANY OTHER QUESTIONS OR CONCERNS? : NONE CURRENT MEDICATIONS TAKING EZETIMIBE 10 MG TABLET 1 TABLET ORALLY ONCE A DAY, NOTES: 08/27 599 TAKING IRON 28 MG TABLET 1 TABLET ORALLY ONCE A DAY, NOTES: 08/27 599 TAKING INCRUSE ELLIPTA 62.5 MCG/INH AEROSOL POWDER BREATH ACTIVATED 1 PUFF INHALATION ONCE A DAY, NOTES: 08/27 599 TAKING IPRATROPIUM-ALBUTEROL 0.5-2.5 (3) MG/3ML SOLUTION 3 ML INHALATION EVERY 4 HRS NEEDED, NOTES: NONE RECENT TAKING PROAIR HFA 108 (90 BASE) MCG/ACT AEROSOL SOLUTION 2 PUFFS NEEDED INHALATION EVERY 6 HRS, NOTES: NONE RECENT TAKING ASPIR-81 81 MG TABLET DELAYED RELEASE 1 TABLET ORALLY ONCE A DAY, NOTES: 08/27 599 TAKING CLOTRIMAZOLE 1 % CREAM 1 APPLICATION TO AFFECTED AREA OF LEFT FOOT EXTERNALLY TWICE A DAY NEEDED, NOTES: NONE RECENT TAKING MISC. DEVICES - MISCELLANEOUS BP CUFF, CHECK ONCE A DAY, DX: I10. TAKING GLUCOMETER E11.9 CHECK ACHS TAKING BLOOD GLUCOSE TEST - STRIP E11.9 CHECK ACHS IN VITRO DIRECTED TAKING LANCETS MISC - MISCELLANEOUS E11.9 CHECK ACHS DIRECTED TAKING PRAVASTATIN SODIUM 80 MG TABLET 1 TABLET ORALLY ONCE A DAY, NOTES: 08/26 1899 TAKING CETIRIZINE HCL 10 MG TABLET 1 TABLET ORALLY ONCE A DAY, NOTES: 08/27 599 TAKING TRIAMCINOLONE ACETONIDE 0.1 % CREAM 1 APPLICATION TO AFFECTED AREA EXTERNALLY TWICE A DAY, NOTES: COUPLE OF WEEKS AGO TAKING CYCLOBENZAPRINE HCL 10 MG TABLET 1 TABLET 1 TO 2 HOURS BEFORE BEDTIME ORALLY ONCE A DAY, NOTES: SYR JOINT & PAIN 08/26 1899 TAKING ROPINIROLE HCL 0.5 MG TABLET 2 TAB ORALLY AT BEDTIME, NOTES: 08/26 1899 TAKING PANTOPRAZOLE SODIUM 40 MG TABLET DELAYED RELEASE TAKE ONE TABLET BY MOUTH ONCE A DAY (STOP OMEPRAZOLE) , NOTES: 08/27 599 TAKING SPIRONOLACTONE 25 MG TABLET 1 TABLET ORALLY ONCE A DAY, NOTES: 08/27 599 TAKING BUPROPION HCL ER (SR) 150 MG TABLET EXTENDED RELEASE 12 HOUR 1 TABLET ORALLY TWICE A DAY, NOTES: 08/27 599 TAKING JARDIANCE 25 MG TABLET 1 TABLET ORALLY ONCE A DAY, NOTES: DOSE INCREASE 08/26 599 TAKING DULOXETINE HCL 60 MG CAPSULE DELAYED RELEASE PARTICLES 1 CAPSULE ORALLY ONCE A DAY, NOTES: 08/27 599 TAKING OXYCODONE-ACETAMINOPHEN 5-325 MG TABLET 1 TABLET NEEDED ORALLY FOR PAIN EVERY 8 HRS MDD4, NOTES: 08/26 193 TAKING INDOMETHACIN 50 MG CAPSULE 1 CAPSULE WITH FOOD OR MILK ORALLY NEEDED FOR PAIN TWICE A DAY, NOTES: 08/27 599 TAKING LYRICA 200 MG CAPSULE 1 CAPSULE ORALLY TID MDD=3, NOTES: WORKERS COMP 08/27 599 TAKING METOPROLOL TARTRATE 25 MG TABLET 2 TABLET WITH FOOD IN AM PLUS 1 TABLET IN PM ORALLY DIRECTED, NOTES: PLEASE NOTE DOSE INCREASE. PLEASE DISCONTINUE THE LOSARTAN-HCTZ IN YOUR RECORDS.08/27 599 TAKING METFORMIN HCL 850 MG TABLET 1 TABLET WITH A MEAL ORALLY BID, NOTES: 08/26 1899 TAKING TRULICITY 1.5 MG/0.5ML SOLUTION PEN-INJECTOR DIRECTED SUBCUTANEOUS WEEKLY, NOTES: 08/23 NOT-TAKING BACTRIM DS 800-160 MG TABLET 1 TABLET ORALLY TWICE A DAY MEDICATION LIST REVIEWED AND RECONCILED WITH THE PATIENT PAST MEDICAL HISTORY DM, A1C GOAL 7% CHRONIC LUNG DISEASE, FOLLOWS WITH DR. WARREN GERD, HAS NEVER SEEN A GI DOCTOR, DENIES HAVING HAD ESOPHAGOGASTRODUODENOSCOPY. ARTHRITIS BACK PAIN/NECK PAIN, CHRONIC SHOULDER PAIN AND CHRONIC LEG PAIN FOR WHICH SHE IS ON PERCOCET X 4 YEARS HYPERLIPIDEMIA HYPERTENSION, DENIES HISTORY OF HEART FAILURE, S/P HEART CATH REPORTEDLY NEG 2006, HAS HISTORY OF "SILENT HEART ATTACK" SO FOLLOWS DR. SHETH WHO DID STRESS JULY 2017, SHE GETS RLS FIBROMYALGIA RA, FOLLOWS WITH RHEUMATOLOGY PA IN [place], PREVIOUSLY ENBREL BEFORE LOSING INSURANCE, LAST SEEN AUGUST 2017 PNEUMONIA OBESITY, LOST 100 POUNDS INTENTIONALLY WITHOUT WEIGHT LOSS SURGERY ANEMIA: UNCERTAIN CAUSE, DIAGNOSIS BY CARDIOLOGY, ON IRON OBSTRUCTIVE SLEEP APNEA, DR. WARREN, USES BIPAP EVERY NIGHT CORONARY ARTERY DISEASE-RACING HEART, SEE DR SHETH LUMBAR SPINE- BULGING/COMPRESSED DISCS ALLERGIES SEASONAL: RED, ITCHY EYES, HEADACHE, NASAL CONGESTION - ALLERGY SURGICAL HISTORY L KNEE REPLACEMENT 2013 CHOLECYSTECTOMY LEFT SHOULDER REPAIR NOVASURE ABLATION CARDIAC CATHETERIZATION 06/2018 GROWTH REMOVAL FROM INSIDE OF NOSE 06/06/19 FAMILY HISTORY FATHER: , RHEUMATOID, DIAGNOSED WITH HYPERTENSION, UNSPECIFIED HEART DISEASE, DIABETES, UNSPECIFIED CEREBRAL ARTERY OCCLUSION WITH CEREBRAL INFARCTION MOTHER: , RHEUMATOID, HYPERTENSION, UNSPECIFIED HEART DISEASE, OTHER MALIGNANT NEOPLASM OF UNSPECIFIED SITE MATERNAL GRAND MOTHER: RHEUMATOID 2 SISTER(S) - HEALTHY. 1 SON(S) - HEALTHY. MOTHER: LUNG CA\\\\\\\\\\\\\\\\NOLDER SISTER()- CHF, HEART DISEASE\\\\\\\\\\\\\\\\N. SOCIAL HISTORY GENERAL: TOBACCO USE ARE YOU A:CURRENT SMOKER ARE YOU INTERESTED IN QUITTING?READY TO QUIT PT CURRENTLY USING WELLBUTRIN TO HELP QUIT/ STATES SHE IS CUTTIING DOWN COUNSELED THE PATIENT ON TOBACCO USE, CESSATION [id number]/18/2020 HOW MANY CIGARETTES A DAY DO YOU SMOKE?6-10 APPROX 4/DAY HOW SOON AFTER YOU WAKE UP DO YOU SMOKE YOUR FIRST CIGARETTE?6-30 MIN HOW OFTEN DO YOU SMOKE CIGARETTES?EVERY DAY PATIENT COUNSELED ON THE DANGERS OF TOBACCO USE AND URGED TO QUIT:08/27/2019 SMOKING CESSATION INFORMATION GIVEN06/24/2019 VAPORNO E-CIGARETTENO LATEX QUESTIONNAIRE LATEX ALLERGY : HAVE YOU EVER DEVELOPED ANY TYPE OF REACTION AFTER HANDLING LATEX PRODUCTS SUCH RUBBER GLOVES, CONDOMS, DIAPHRAGMS, BALLOONS, SOCKS, OR UNDERWEAR?NO LATEX ALLERGY : HAVE YOU EVER DEVELOPED ANY TYPE OF REACTION DURING OR AFTER DENTAL APPOINTMENT, VAGINAL/RECTAL EXAMINATION, SURGICAL PROCEDURE, OR ANY OTHER EXPOSURE?NO DATE ASKED : 08/14/2019 LATEX RISK : HAVE YOU EVER HAD ANY DIFFICULTY BREATHING OR HIVES AFTER EATING OR HANDLING ANY FRUITS, OR VEGETABLES; SUCH KIWI, BANANAS, STONE FRUITS, OR CHESTNUTSNO LATEX RISK : DO YOU HAVE A PREVIOUS PERSONAL HISTORY OF MORE THAN NINE SURGERIES, SPINA BIFIDA, OR REPEATED CATHERIZATIONS? NO LATEX RISK : ARE YOU FREQUENTLY EXPOSED TO LATEX PRODUCTS IN YOUR OCCUPATION?NO BMI CARE GOAL FOLLOW-UP ABOVE NORMAL BMI FOLLOW-UPDIETARY MANAGEMENT EDUCATION, GUIDANCE, AND COUNSELING ALCOHOL SCREENING DID YOU HAVE A DRINK CONTAINING ALCOHOL IN THE PAST YEAR?NO POINTS0 INTERPRETATIONNEGATIVE RECREATIONAL DRUG USE DRUG USE?NO CAFFEINE CAFFEINE USE?YES HOW OFTEN AND HOW MUCH? 2 CUPS COFFEE PER DAY DAILY BASIS SEXUAL HX HAD SEX IN THE LAST 12 MONTHS (VAGINAL, ORAL, OR ANAL)?NO HAVE YOU EVER HAD AN STD?NO HIV / HEP-C SCREENING HIV TEST OFFERED TO PATIENT:YES DATE OFFERED:05/16/2018 TEST ACCEPTED:NO HEP-C TEST OFFERED TO PATIENT:NO REASON:PATIENT DECLINED BROCHURE PROVIDED TO PATIENTYES EPISCOPAL [id number] [employer] LANGUAGES SPOKEN:NIGERIEN EDUCATION LEVEL OF EDUCATION:HIGH SCHOOL LEARNING BARRIERS / SPECIAL NEEDS CHANGE FROM LAST VISIT?NO BARRIERS TO LEARNING?NO HEARING IMPAIRED?NO VISION IMPAIRED?YES READING GLASSES COGNITIVELY IMPAIRED?NO READINESS TO LEARN?YES LEARNING PREFERENCES?NO LEARNING CAPABILITIES PRESENT?YES EMOTIONAL BARRIERS?NO SPECIAL DEVICES?YES :OTHER BIPAP BRICK MOLDER HAND NEEDED?NO DOMESTIC VIOLENCE DO YOU FEEL SAFE IN YOUR ENVIRONMENT?YES 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 EXERCISE: NO REGULAR EXERCISE. MARITAL STATUS: SINGLE. OTHERS AT HOME: NONE. PAIN CLINIC PFS, CLERGY, PUBLIC HEALTH REFERRALS PFS REFERRAL NEEDED?NO CLERGY REFERRAL NEEDED?NO PUBLIC HEALTH REFERRAL NEEDED?NO HAS THE PATIENT BEEN EDUCATED REGARDING HIS/HER PLAN OF CARE?YES HAS THE PATIENT BEEN EDUCATED REGARDING PAIN, THE RISK FOR PAIN, THE IMPORTANCE OF EFFECTIVE PAIN MANAGEMENT, AND THE PAIN ASSESSMENT PROCESS?YES ADVANCE DIRECTIVE ADVANCE DIRECTIVE DISCUSSED WITH PATIENT:YES PATEINT STATES SHE HAS A HCP - SONIA DONALD (SISTER) [phone], ALSO HAS A DNR HOSPITALIZATION/MAJOR DIAGNOSTIC PROCEDURE SURGICALY RELATED PNEUMONIA-RESP FAILURE ON BIPAP 12/28/15 INFLUENZA/COPD 05/08/18 CHEST PAIN - CARDIAC CATHETERIZATION 06/2018 VITAL SIGNS WT 243.6 LBS, HT 66.75 IN, BMI 38.44 INDEX, BP 158/90 MM HG, HR 67 /MIN, RR 18 /MIN, TEMP 98.3 F, OXYGEN SAT % 96%, BLOOD GLUCOSE LEVEL 121 @ 0600, SAFE IN ENV? (Y/N) Y, NA INITIALS OH 11:07, REVIEWED BY: REYES. EXAMINATION GENERAL EXAMINATION: THE PATIENT IS ALERT, ORIENTED TIMES THREE AND COOPERATIVE. HEART SHOWS REGULAR RHYTHM, NO MURMURS AND NO GALLOPS. LUNGS ARE CLEAR TO AUSCULTATION. ASSESSMENTS SPONDYLOSIS WITHOUT MYELOPATHY OR RADICULOPATHY, LUMBAR REGION - M47.816 (PRIMARY) SPONDYLOSIS WITHOUT MYELOPATHY OR RADICULOPATHY, LUMBOSACRAL REGION - M47.817 TREATMENT SPONDYLOSIS WITHOUT MYELOPATHY OR RADICULOPATHY, LUMBAR REGION [facility] FACET BLOCK (PAIN)8180047 PROCEDURES PAIN NURSING RECORD PRE-PROCEDURE IV SITE N/A, PRE-PROCEDURE ORAL MEDICATIONS NONE PROCEDURE IN ROOM 1245, PHYSICIAN IN ROOM 1325, START 1328, FINISH 1336, PHYSICIAN OUT OF ROOM 1337, OUT OF ROOM 1345, STEROID N/A, O2 RA, ECG NORMAL SINUS, PATIENT SHIELDED YES, SAFETY STRAP YES, PREP CHLOROPREP Omkar BOONE RN, IV INFUSED N/A, DRESSING TEGADERM DR. CORTEZ LOC: ASHLEY BOONE 08/28/2019 11:47:52 AM > 1. ALERT, ORIENTED RESP: ASHLEY BOONE 08/28/2019 11:47:55 AM > 1. REGULAR, NO DYSPNEA COLOR: CASEY BOONEITA 08/28/2019 11:47:57 AM > 1. PINK SKIN: CASEY BOONEITA 08/28/2019 11:48:00 AM > 1. WARM, DRY POSITION: CASEY BOONEITA 08/28/2019 12:53:36 PM > 1. PRONE VITALS: CASEY BOONEITA 08/28/2019 12:47:25 PM > 170/83,67,18,94% CASEY BOONEITA 08/28/2019 1:00:21 PM > 177/97,66,18,96% PAOLOASHLEY 08/28/2019 1:13:45 PM > 179/95,66,18,94% PAOLOCASEYASHLEY 08/28/2019 1:28:54 PM >179/85, 66,16,95% PAOLOASHLEY 08/28/2019 1:42:58 PM > 191/89,68,16,96% PAOLOASHLEY 08/28/2019 1:53:43 PM > 165/85,68,16,99% DISCHARGE: POST PAIN 09/05 LOW BACK, DRESSING SITE DRY AND INTACT, IV N/A, GAIT STEADY, TEACHING COMPLETED, PATIENT ACKNOWLEDGES UNDERSTANDING YES, PATIENT DISCHARGED AT 1355 PN LUMBAR FACET BLOCK DIAGNOSTIC PRE PROCEDURE DIAGNOSIS LUMBAR SPONDYLOSIS, LUMBOSACRAL SPONDYLOSIS POST PROCEDURE DIAGNOSIS LUMBAR SPONDYLOSIS, LUMBOSACRAL SPONDYLOSIS PROCEDURE BILATERAL L4-L5 AND BILATERAL L5-S1 FACET BLOCK DIAGNOSTIC NUMBER [address] JOSE CORTEZ DRY GOODS CLERK NONE ANESTHESIA LOCAL PRE PROCEDURE NOTE THE PATIENT WITH HISTORY OF CHRONIC LOW BACK PAIN. I EVALUATED THE PATIENT AND REVIEWED THE CHART. I WENT OVER THE RISKS, ALTERNATIVES, AND BENEFITS ASSOCIATED WITH THIS PROCEDURE. THE PATIENT WOULD LIKE TO PROCEED AND GAVE CONSENT TO PERFORM THE PROCEDURE. AGREED WITH THE PATIENT WE ARE DOING THIS PROCEDURE TO DETERMINE IF THE PATIENT IS A CANDIDATE FOR A RADIOFREQUENCY ABLATION OF THE FACETS JOINTS. THE PATIENT DENIES UNEXPLAINABLE WEIGHT LOSS, FEVER, CHILLS, OR NEW CHANGES IN URINARY OR BOWEL CONTROL. THE PATIENT IS COVID-19 NEGATIVE DESCRIPTION OF PROCEDURE THE PATIENT WAS BROUGHT TO THE PROCEDURE ROOM AND PLACED IN THE PRONE POSITION. THE LUMBOSACRAL AREA WAS CLEANED WITH CHLORAPREP SOLUTION AND DRAPED ASEPTICALLY. THE PROCEDURE WAS DONE UNDER STERILE CONDITIONS. I CHECKED LATERALITY AND THE LEVEL WHERE THE PROCEDURE WAS GOING TO BE PERFORMED WITH THE PATIENT AND THE SUPPORTING STAFF AT THE MOMENT OF THE TIME OUT IN THE PROCEDURE ROOM. UNDER FLUOROSCOPIC GUIDANCE, TARGETS WERE SELECTED AT THE INTERSECTION OF THE RIGHT AND LEFT TRANSVERSE PROCESS OF L4, L5 AND ALA OF S1 WITH ITS RESPECTIVE SUPERIOR ARTICULAR PROCESS. LIDOCAINE WAS USED TO NUMB THE SKIN AND THE SUBCUTANEOUS TISSUE BELOW IT. SPINAL NEEDLE, 22-GAUGE, WAS ADVANCED UNDER FLUOROSCOPIC GUIDANCE AND FOLLOWING PATIENT FEEDBACK UNTIL THE TARGETS WERE REACHED. POSITION OF THE NEEDLES WAS VERIFIED WITH AP AND LATERAL VIEWS. AFTER PROPER POSITION OF THE NEEDLES WAS ACHIEVED, ISOVUE-M DYE 30%, 0.1 ML, WAS INJECTED AT EACH SITE SHOWING ADEQUATE SPREAD OF THE DYE. THEN A SOLUTION OF 0.4 ML OF BUPIVACAINE 0.25% WAS INJECTED AT EACH SITE. THERE WAS NO EVIDENCE OF BLOOD, PARESTHESIA OR CEREBROSPINAL FLUID DURING THE PROCEDURE. THE PATIENT WAS SENT TO THE RECOVERY ROOM. THE PATIENT WAS MOVING THE EXTREMITIES AND DOING WELL. THERE WAS NO COMPLICATION DURING THE PROCEDURE. EBL LESS THAN 5 ML. FLUOROSCOPY TIME WAS 41 SECONDS POST PROCEDURE NOTE THE PATIENT WILL DOCUMENT THE PAIN LEVEL AND RESPONSE TO THIS PROCEDURE EVERY HOUR. THE PATIENT WILL BE SEEN IN A FOLLOW UP IN THE NEXT FEW WEEKS. FURTHER DETERMINATION FOR THE PATIENT'S CASE WILL BE DONE AT THE NEXT VISIT. INSTRUCTIONS WERE GIVEN, QUESTIONS WERE ANSWERED, AND THE PATIENT EXPRESSED UNDERSTANDING AND AGREED WITH THE PLAN. I, EDMUND BRANDT, DOCUMENTED THE ABOVE INFORMATION ACTING A SCRIBE FOR DR. CORTEZ. I HAVE REVIEWED THE ABOVE DOCUMENT, WRITTEN BY EDMUND BRANDT, QUANTOMETER OPERATOR, AND I VERIFY THAT IT IS ACCURATE PROCEDURE CODES 48601 INJ PARAVERT F JNT L/S 1 LEV, MODIFIERS: 50 [id number] INJ PARAVERT F JNT L/S 2 LEV, MODIFIERS: 50 DISPOSITION & COMMUNICATION FOLLOW UP F/UP WITH RECREATION PROGRAMMER (REASON: POST LFBD #1 L4-L5, L5-S1) ELECTRONICALLY SIGNED BY JOSE CORTEZ MD, MD ON 09/03/2019 AT 06:33 PM EDT DISCLAIMER : THIS IS A VISIT SUMMARY EXTRACTED FROM THE [facility] CHART. IT IS NOT A COPY OF THE [facility] PROGRESS NOTE. GEENAD
== END ==
LOC: M PAIN 11:15
PROVIDERS: ATTEND Anesthesiology
DX: M47.816 Spondylosis without myelopathy or radiculopathy, lumbar region (principal); M47.817 Spondylosis without myelopathy or radiculopathy, lumbosacral region
CPT/HCPCS: 64493; 64494; Q9967

== ENCOUNTER → 2019-09-04 | Outpatient (CLI) | payer OTHER, MEDICAID ==
[~2019-09-04] MED LIST changes: -AMLO10TA5 PO; +AMLO1TAB25 PO; -BUPIVACAINE HCL 0.25% 30ML VIAL As Ordered ONE; -ISOVUE-M 300 61% 15ML VIAL As Ordered ONE; -LIDOCAINE 1% SDV 30ML VIAL As Ordered ONE; -METF-699 PO; +METF-817 PO
--- NOTE | 2019-09-06 03:36 | ECWPNPC ---
PATIENT NAME: ESTHER MAE : 1960 GENDER: FEMALE VISIT DATE: 09/04/2019 DISCHARGE DATE: 09/04/19 1133 VISIT LOCKED DATE TIME: PHYSICIAN: FREDERICK MILES RESOURCE: FREDERICK MILES REASON FOR APPOINTMENT 1. W/C LEFT KNEE/LEFT SHOULDER HISTORY OF PRESENT ILLNESS GENERAL: -59 YEAR-OLD FEMALE IN FOR WORKER'S COMP. CHRONIC PAIN FOLLOW-UP. SHE RATES HER PAIN CURRENTLY AT A 7 OUT OF 10 AND DESCRIBES IT ACHING, BURNING, SHARP, STABBING, AND SHOOTING. SHE FEELS THE MEDICATIONS ARE HELPFUL AND DENIES MED SIDE EFFECTS AT THIS TIME. 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 THE PATIENT SAYS THE PAIN IS SEVERE CONTINUES TO PERSIST IN BOTH AREAS THE PATIENT SAYS THE PAIN IS AFFECTING HER ABILITY TO PERFORM HER DAILY ACTIVITIES SHE SAYS SHE SHE CAN NO LONGER DO HOUSEWORK SUCH VACUUMING AND CLEANING THE BATHROOM AND THAT SHE HAD TO HIRE A GASOLINE PUMP MECHANIC TO TAKE CARE OF HER HOME TASKS. FALL RISK SCREENING: SCREENING :NO FALLS REPORTED IN THE LAST YEAR PAIN SCREENING: PATIENT HAS A COMPLAINT OF ACUTE OR CHRONIC PAIN :YES LOCATION OF PAIN: L SHOULDER, L KNEE INTENSITY OF PAIN (SCALE OF 1 TO 10):7 WHAT DOES YOUR PAIN FEEL LIKE:ACHING, BURNING, SHARP, STABBING, SHOOTING DURATION:CONTINOUS PAIN IS INCREASED BY: CROCHETING, MOVING ITEMS, (KNEE IS ALWAYS PAINFUL NO MATTER WHAT) PAIN IS DECREASED BY: NOTHING NURSING NOTE: -. CURRENT MEDICATIONS TAKING EZETIMIBE 10 MG TABLET 1 TABLET ORALLY ONCE A DAY TAKING IRON 28 MG TABLET 1 TABLET ORALLY ONCE A DAY TAKING INCRUSE ELLIPTA 62.5 MCG/INH AEROSOL POWDER BREATH ACTIVATED 1 PUFF INHALATION ONCE A DAY TAKING IPRATROPIUM-ALBUTEROL 0.5-2.5 (3) MG/3ML SOLUTION 3 ML INHALATION EVERY 4 HRS NEEDED TAKING PROAIR HFA 108 (90 BASE) MCG/ACT AEROSOL SOLUTION 2 PUFFS NEEDED INHALATION EVERY 6 HRS TAKING ASPIR-81 81 MG TABLET DELAYED RELEASE 1 TABLET ORALLY ONCE A DAY TAKING CLOTRIMAZOLE 1 % CREAM 1 APPLICATION TO AFFECTED AREA OF LEFT FOOT EXTERNALLY TWICE A DAY NEEDED TAKING MISC. DEVICES - MISCELLANEOUS BP CUFF, CHECK ONCE A DAY, DX: I10. TAKING GLUCOMETER E11.9 CHECK ACHS TAKING BLOOD GLUCOSE TEST - STRIP E11.9 CHECK ACHS IN VITRO DIRECTED TAKING LANCETS MISC - MISCELLANEOUS E11.9 CHECK ACHS DIRECTED TAKING PRAVASTATIN SODIUM 80 MG TABLET 1 TABLET ORALLY ONCE A DAY TAKING CETIRIZINE HCL 10 MG TABLET 1 TABLET ORALLY ONCE A DAY TAKING TRIAMCINOLONE ACETONIDE 0.1 % CREAM 1 APPLICATION TO AFFECTED AREA EXTERNALLY TWICE A DAY TAKING CYCLOBENZAPRINE HCL 10 MG TABLET 1 TABLET 1 TO 2 HOURS BEFORE BEDTIME ORALLY ONCE A DAY TAKING ROPINIROLE HCL 0.5 MG TABLET 2 TAB ORALLY AT BEDTIME TAKING PANTOPRAZOLE SODIUM 40 MG TABLET DELAYED RELEASE TAKE ONE TABLET BY MOUTH ONCE A DAY (STOP OMEPRAZOLE) TAKING SPIRONOLACTONE 25 MG TABLET 1 TABLET ORALLY ONCE A DAY TAKING BUPROPION HCL ER (SR) 150 MG TABLET EXTENDED RELEASE 12 HOUR 1 TABLET ORALLY TWICE A DAY TAKING JARDIANCE 25 MG TABLET 1 TABLET ORALLY ONCE A DAY TAKING DULOXETINE HCL 60 MG CAPSULE DELAYED RELEASE PARTICLES 1 CAPSULE ORALLY ONCE A DAY TAKING OXYCODONE-ACETAMINOPHEN 5-325 MG TABLET 1 TABLET NEEDED ORALLY FOR PAIN EVERY 8 HRS MDD4 TAKING INDOMETHACIN 50 MG CAPSULE 1 CAPSULE WITH FOOD OR MILK ORALLY NEEDED FOR PAIN TWICE A DAY TAKING LYRICA 200 MG CAPSULE 1 CAPSULE ORALLY TID MDD=3 TAKING METOPROLOL TARTRATE 25 MG TABLET 2 TABLET WITH FOOD IN AM PLUS 1 TABLET IN PM ORALLY DIRECTED TAKING METFORMIN HCL 850 MG TABLET 1 TABLET WITH A MEAL ORALLY BID TAKING TRULICITY 1.5 MG/0.5ML SOLUTION PEN-INJECTOR DIRECTED SUBCUTANEOUS WEEKLY TAKING MAY HAVE - - BI PAP NOT-TAKING BACTRIM DS 800-160 MG TABLET 1 TABLET ORALLY TWICE A DAY MEDICATION LIST REVIEWED AND RECONCILED WITH THE PATIENT PAST MEDICAL HISTORY DM, A1C GOAL 7% CHRONIC LUNG DISEASE, FOLLOWS WITH DR. KELVIN FRITZ, HAS NEVER SEEN A GI DOCTOR, DENIES HAVING HAD ESOPHAGOGASTRODUODENOSCOPY. ARTHRITIS BACK PAIN/NECK PAIN, CHRONIC SHOULDER PAIN AND CHRONIC LEG PAIN FOR WHICH SHE IS ON PERCOCET X 4 YEARS HYPERLIPIDEMIA HYPERTENSION, DENIES HISTORY OF HEART FAILURE, S/P HEART CATH REPORTEDLY NEG 2006, HAS HISTORY OF "SILENT HEART ATTACK" SO FOLLOWS DR. SHETH WHO DID STRESS JULY 2017, SHE GETS RLS FIBROMYALGIA RA, FOLLOWS WITH RHEUMATOLOGY PA IN [facility], PREVIOUSLY ENBREL BEFORE LOSING INSURANCE, LAST SEEN AUGUST 2017 PNEUMONIA OBESITY, LOST 100 POUNDS INTENTIONALLY WITHOUT WEIGHT LOSS SURGERY ANEMIA: UNCERTAIN CAUSE, DIAGNOSIS BY CARDIOLOGY, ON IRON OBSTRUCTIVE SLEEP APNEA, DR. WARREN, USES BIPAP EVERY NIGHT CORONARY ARTERY DISEASE-RACING HEART, SEE DR SHETH LUMBAR SPINE- BULGING/COMPRESSED DISCS ALLERGIES SEASONAL: RED, ITCHY EYES, HEADACHE, NASAL CONGESTION - ALLERGY SURGICAL HISTORY L KNEE REPLACEMENT 2013 CHOLECYSTECTOMY LEFT SHOULDER REPAIR NOVASURE ABLATION CARDIAC CATHETERIZATION 06/2018 GROWTH REMOVAL FROM INSIDE OF NOSE 06/06/19 FAMILY HISTORY FATHER: , RHEUMATOID, DIAGNOSED WITH HYPERTENSION, UNSPECIFIED HEART DISEASE, DIABETES, UNSPECIFIED CEREBRAL ARTERY OCCLUSION WITH CEREBRAL INFARCTION MOTHER: , RHEUMATOID, HYPERTENSION, UNSPECIFIED HEART DISEASE, OTHER MALIGNANT NEOPLASM OF UNSPECIFIED SITE MATERNAL GRAND MOTHER: RHEUMATOID 2 SISTER(S) - HEALTHY. 1 SON(S) - HEALTHY. MOTHER: LUNG CA\\\\\\\\\\\\\\\\NOLDER SISTER()- CHF, HEART DISEASE\\\\\\\\\\\\\\\\N. SOCIAL HISTORY GENERAL: TOBACCO USE ARE YOU A:CURRENT SMOKER HOW OFTEN DO YOU SMOKE CIGARETTES?EVERY DAY HOW SOON AFTER YOU WAKE UP DO YOU SMOKE YOUR FIRST CIGARETTE?6-30 MIN HOW MANY CIGARETTES A DAY DO YOU SMOKE?6-10 APPROX 4/DAY ARE YOU INTERESTED IN QUITTING?READY TO QUIT PT CURRENTLY USING WELLBUTRIN TO HELP QUIT/ STATES SHE IS CUTTIING DOWN PATIENT COUNSELED ON THE DANGERS OF TOBACCO USE AND URGED TO QUIT:08/27/2019 COUNSELED THE PATIENT ON TOBACCO USE, CESSATION [id number]/18/2020 VAPORNO E-CIGARETTENO SMOKING CESSATION INFORMATION GIVEN06/24/2019 LATEX QUESTIONNAIRE LATEX ALLERGY : HAVE YOU EVER DEVELOPED ANY TYPE OF REACTION AFTER HANDLING LATEX PRODUCTS SUCH RUBBER GLOVES, CONDOMS, DIAPHRAGMS, BALLOONS, SOCKS, OR UNDERWEAR?NO LATEX ALLERGY : HAVE YOU EVER DEVELOPED ANY TYPE OF REACTION DURING OR AFTER DENTAL APPOINTMENT, VAGINAL/RECTAL EXAMINATION, SURGICAL PROCEDURE, OR ANY OTHER EXPOSURE?NO LATEX RISK : HAVE YOU EVER HAD ANY DIFFICULTY BREATHING OR HIVES AFTER EATING OR HANDLING ANY FRUITS, OR VEGETABLES; SUCH KIWI, BANANAS, STONE FRUITS, OR CHESTNUTSNO LATEX RISK : DO YOU HAVE A PREVIOUS PERSONAL HISTORY OF MORE THAN NINE SURGERIES, SPINA BIFIDA, OR REPEATED CATHERIZATIONS? NO LATEX RISK : ARE YOU FREQUENTLY EXPOSED TO LATEX PRODUCTS IN YOUR OCCUPATION?NO DATE ASKED : 08/14/2019 BMI CARE GOAL FOLLOW-UP ABOVE NORMAL BMI FOLLOW-UPDIETARY MANAGEMENT EDUCATION, GUIDANCE, AND COUNSELING ALCOHOL SCREENING DID YOU HAVE A DRINK CONTAINING ALCOHOL IN THE PAST YEAR?NO POINTS0 INTERPRETATIONNEGATIVE RECREATIONAL DRUG USE DRUG USE?NO CAFFEINE CAFFEINE USE?YES HOW OFTEN AND HOW MUCH? 2 CUPS COFFEE PER DAY DAILY BASIS SEXUAL HX HAD SEX IN THE LAST 12 MONTHS (VAGINAL, ORAL, OR ANAL)?NO HAVE YOU EVER HAD AN STD?NO HIV / HEP-C SCREENING HIV TEST OFFERED TO PATIENT:YES DATE OFFERED:05/16/2018 TEST ACCEPTED:NO HEP-C TEST OFFERED TO PATIENT:NO REASON:PATIENT DECLINED BROCHURE PROVIDED TO PATIENTYES ORTHODOX [id number] JAINISM LANGUAGE LANGUAGES SPOKEN:SYRIAC EDUCATION LEVEL OF EDUCATION:HIGH SCHOOL LEARNING BARRIERS / SPECIAL NEEDS CHANGE FROM LAST VISIT?NO BARRIERS TO LEARNING?NO HEARING IMPAIRED?NO VISION IMPAIRED?YES READING GLASSES :CORRECTIVE LENSES COGNITIVELY IMPAIRED?NO READINESS TO LEARN?YES LEARNING PREFERENCES?NO LEARNING CAPABILITIES PRESENT?YES EMOTIONAL BARRIERS?NO SPECIAL DEVICES?NO JEWEL HOLE FINISH OPENER NEEDED?NO DOMESTIC VIOLENCE DO YOU FEEL SAFE IN YOUR ENVIRONMENT?YES 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 EXERCISE: NO REGULAR EXERCISE. MARITAL STATUS: SINGLE. OTHERS AT HOME: NONE. PAIN CLINIC PFS, CLERGY, PUBLIC HEALTH REFERRALS PFS REFERRAL NEEDED?NO CLERGY REFERRAL NEEDED?NO PUBLIC HEALTH REFERRAL NEEDED?NO HAS THE PATIENT BEEN EDUCATED REGARDING HIS/HER PLAN OF CARE?YES HAS THE PATIENT BEEN EDUCATED REGARDING PAIN, THE RISK FOR PAIN, THE IMPORTANCE OF EFFECTIVE PAIN MANAGEMENT, AND THE PAIN ASSESSMENT PROCESS?YES ADVANCE DIRECTIVE ADVANCE DIRECTIVE DISCUSSED WITH PATIENT:YES PATEINT STATES SHE HAS A HCP - SONIA BENNETT (SISTER) [phone], ALSO HAS A DNR HOSPITALIZATION/MAJOR DIAGNOSTIC PROCEDURE SURGICALY RELATED PNEUMONIA-RESP FAILURE ON BIPAP 12/28/15 INFLUENZA/COPD 05/08/18 CHEST PAIN - CARDIAC CATHETERIZATION 06/2018 REVIEW OF SYSTEMS CONSTITUTIONAL: ANY RECENT FEVER NO . CHILLS NO . WEIGHT CHANGE OF UNKNOWN REASONS NO . GASTROENTEROLOGY: NEW UNEXPLAINABLE CHANGES IN BOWEL CONTROL NO . CONSTIPATION NO . GENITOURINARY: ANY NEW CHANGE IN BLADDER CONTROL? NO . NEUROLOGY: NEW ONSET DIZZINESS OR NEUROLOGICAL CHANGES NOT MENTIONED NO . NEW NUMBNESS OR PAIN PATTERNS NOT MENTIONED AND PERTINENT TO TODAY'S VISIT NO . CARDIOLOGY: NEW CHEST PRESSURE NO . NEW CHEST PAIN NO . RESPIRATORY: UNEXPLAINABLE COUGH NO . NEW SHORTNESS OF BREATH NO . VITAL SIGNS WT 243.6 LBS, HT 66.75 IN, BMI 38.44 INDEX, BP 132/94 MM HG, HR 72 /MIN, RR 18 /MIN, TEMP 95.7 F, OXYGEN SAT % 97%, NA INITIALS SC 10:53. EXAMINATION GENERAL EXAMINATION: GENERALNO ACUTE DISTRESS, WELL NOURISHED AND HYDRATED. PSYCHAPPROPRIATE MOOD AND AFFECT . LUNGS:CLEAR TO AUSCULTATION BILATERALLY, NO WHEEZES, RHONCHI, RALES. HEART:NO MURMURS, REGULAR RATE AND RHYTHM. ASSESSMENTS PAIN IN LEFT KNEE - M25.562 (PRIMARY) PAIN IN LEFT SHOULDER - M25.512 TREATMENT PAIN IN LEFT KNEE REFILL INDOMETHACIN CAPSULE, 50 MG, 1 CAPSULE WITH FOOD OR MILK, ORALLY NEEDED FOR PAIN, TWICE A DAY, 30 DAYS, 60 CLINICAL NOTES: 59-YEAR-OLD FEMALE IN FOR WORKER'S COMP. CHRONIC PAIN FOLLOW-UP. GIVEN PRESENTING SYMPTOMS RECOMMENDED CONTINUATION OF CURRENT MEDICATION REGIMEN WITH FOLLOW-UP IN 3 MONTHS. PATIENT WAS SEEN BY ORTHOPEDICS FOR HER LEFT SHOULDER PAIN PER ORTHOPEDICS HER SHOULDER PAIN IS NOT COMING FROM HER SHOULDER BUT HER CERVICAL SPINE SUCH REFERRAL TO NEUROLOGY WILL BE PLACED. PATIENT HAS EXPRESSED UNDERSTANDING OF AND WAS IN AGREEMENT WITH TREATMENT PLAN. GIVEN TIME TO ASK QUESTIONS AND EXPRESS CONCERNS. , ISTOP REGISTRY REVIEWED AND DEMONSTRATES COMPLLIANCE. (REF # [id number] ) BRINGS IN MEDICATIONS WHICH IS APPROPRIATE FOR WHAT WAS DISPENSED. RECENT URINE TOXICOLOGY REVIEWED. NO UNAUTHORIZED MEDICATIONS. NO ILLICIT SUBSTANCES AND PRESCRIBED MEDICATIONS WERE PRESENT. REFERRAL TO:[facility] REASON:EVAULATE LEFT SHOULDER PAIN ORTHO BELIEVES IT'S COMING FROM THE CERVICAL REGION PROCEDURES PN WORKMANS' COMP OPINION IN YOUR OPINION, WAS THE INCIDENT THAT THE PATIENT DESCRIBED THE COMPETENT MEDICAL CAUSE OF THIS INJURY/ILLNESS? YES ARE THE PATIENT'S COMPLAINTS CONSISTENT WITH HIS/HER HISTORY OF THE INJURY/ILLNESS? YES IS THE PATIENT'S HISTORY OF THE INJURY/ILLNESS CONSISTENT WITH YOUR OBJECTIVE FINDING? YES WHAT IS THE PERCENTAGE OF TEMPORARY IMPAIRMENT? TOTAL = 100% IS THE PATIENT WORKING? NO DOCTOR ON SITE: JOSE HAUSER MD DISPOSITION & COMMUNICATION FOLLOW UP 3 MONTHS (REASON: KNEE AND SHOULDER PAIN WORKER'S COMP.) ELECTRONICALLY SIGNED BY SOHEILA MEDRANO ON 09/05/2019 AT 08:51 AM EDT DISCLAIMER : THIS IS A VISIT SUMMARY EXTRACTED FROM THE [employer]ICAL[employer]KS CHART. IT IS NOT A COPY OF THE E[employer]ICAL[employer]KS PROGRESS NOTE. PRETTY
== END ==
LOC: M PAIN 11:00
PROVIDERS: ATTEND Family Medicine
DX: M25.562 Pain in left knee (principal); M25.512 Pain in left shoulder

== ENCOUNTER → 2019-11-12 | Outpatient (CLI) | payer OTHER, MEDICAID | LOC: M PAIN 13:49 | PROVIDERS: ATTEND Family Medicine | DX: M47.816 Spondylosis without myelopathy or radiculopathy, lumbar region (principal) ==

== ENCOUNTER → 2019-12-05 | Outpatient (CLI) | payer OTHER, MEDICAID ==
--- NOTE | 2019-12-06 12:33 | ECWPNPC ---
PATIENT NAME: ESTHER MAE : 1960 GENDER: FEMALE VISIT DATE: 12/05/2019 DISCHARGE DATE: 12/05/19 1041 VISIT LOCKED DATE TIME: PHYSICIAN: FREDERICK MILES PHYSICIAN PAGER NO: ACTIVE RESOURCE: FREDERICK MILES REASON FOR APPOINTMENT 1. KNEE AND SHOULDER PAIN WORKER'S COMP. HISTORY OF PRESENT ILLNESS GENERAL: 59-YEAR-OLD FEMALE IN FOR WORKER'S COMP. CHRONIC PAIN FOLLOW-UP SHE RATES HER PAIN CURRENTLY AT A 10 OUT OF 10 AND DESCRIBES IT STABBING. PATIENT ADMITS TO NOT TAKING HER MEDICATION THIS MORNING AND FEELS THIS IS WHY SHE IS EXPERIENCING INCREASED PAIN AT THIS TIME. WHEN ASKED SHE ADMITS MEDICATIONS ARE HELPFUL AND DENIES MED SIDE EFFECTS AT THIS TIME. 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 FALL RISK SCREENING: SCREENING :NO FALLS REPORTED IN THE LAST YEAR PAIN SCREENING: PATIENT HAS A COMPLAINT OF ACUTE OR CHRONIC PAIN :YES LOCATION OF PAIN:LEFT SHOULDER, KNEES LEFT KNEE INTENSITY OF PAIN (SCALE OF 1 TO 10):10 WHAT DOES YOUR PAIN FEEL LIKE:STABBING DURATION:CONSTANT PAIN IS INCREASED BY:OTHERS PATEINT STATES SHE DOESN'T HAVE TO DO ANYTHING TO TRIGGER THE PAIN. PAIN IS DECREASED BY:OTHERS WALKING HELPS TO REDUCE PAIN NURSING NOTE: -. PAIN CENTER INTAKE QUESTIONS: DO YOU HAVE A HISTORY OF MRSA? :NO DO YOU TAKE A BLOOD THINNERS? :NO DO YOU HAVE ANY BLEEDING DISORDERS? :NO ANY NEW NUMBNESS OR WEAKNESS IN YOUR LEGS OR ARMS? :NO ANY PACEMAKER,DEFIBRILLATOR, OR DORSAL COLUMN STIMULATOR? :NO DO YOU HAVE ANY RASHES OR OPEN SORES? :NO ARE YOU ALLERGIC TO IV DYE? :NO ARE YOU DIABETIC? :YES ANY NEW PROBLEMS WITH YOUR MEDICATIONS? :NO HAVE YOU RECEIVED A VACCINE IN THE PAST 30 DAYS? :YES RECIEVED FL[place] [facility] [place] DO YOU PLAN TO RECEIVE A VACCINE IN THE NEXT 21 DAYS? :NO DO YOU NEED ANY PRESCRIPTION? :NO DO YOU TAKE ANY IMMUNOSUPPRESSIVE MEDICATIONS? :NO IS THERE A CHANCE YOU COULD BE ? :NO ARE YOU BREAST FEEDING? :NO CURRENT MEDICATIONS TAKING EZETIMIBE 10 MG TABLET 1 TABLET ORALLY ONCE A DAY TAKING IRON 28 MG TABLET 1 TABLET ORALLY ONCE A DAY TAKING INCRUSE ELLIPTA 62.5 MCG/INH AEROSOL POWDER BREATH ACTIVATED 1 PUFF INHALATION ONCE A DAY TAKING IPRATROPIUM-ALBUTEROL 0.5-2.5 (3) MG/3ML SOLUTION 3 ML INHALATION EVERY 4 HRS NEEDED TAKING PROAIR HFA 108 (90 BASE) MCG/ACT AEROSOL SOLUTION 2 PUFFS NEEDED INHALATION EVERY 6 HRS TAKING ASPIR-81 81 MG TABLET DELAYED RELEASE 1 TABLET ORALLY ONCE A DAY TAKING CLOTRIMAZOLE 1 % CREAM 1 APPLICATION TO AFFECTED AREA OF LEFT FOOT EXTERNALLY TWICE A DAY NEEDED, NOTES: PRN TAKING MISC. DEVICES - MISCELLANEOUS BP CUFF, CHECK ONCE A DAY, DX: I10. TAKING GLUCOMETER E11.9 CHECK ACHS TAKING BLOOD GLUCOSE TEST - STRIP E11.9 CHECK ACHS IN VITRO DIRECTED TAKING LANCETS - MISCELLANEOUS E11.9 CHECK ACHS DIRECTED TAKING PRAVASTATIN SODIUM 80 MG TABLET 1 TABLET ORALLY ONCE A DAY TAKING CETIRIZINE HCL 10 MG TABLET 1 TABLET ORALLY ONCE A DAY TAKING TRIAMCINOLONE ACETONIDE 0.1 % CREAM 1 APPLICATION TO AFFECTED AREA EXTERNALLY TWICE A DAY TAKING ROPINIROLE HCL 0.5 MG TABLET 2 TAB ORALLY AT BEDTIME TAKING PANTOPRAZOLE SODIUM 40 MG TABLET DELAYED RELEASE TAKE ONE TABLET BY MOUTH ONCE A DAY (STOP OMEPRAZOLE) TAKING SPIRONOLACTONE 25 MG TABLET 1 TABLET ORALLY ONCE A DAY TAKING JARDIANCE 25 MG TABLET 1 TABLET ORALLY ONCE A DAY TAKING DULOXETINE HCL 60 MG CAPSULE DELAYED RELEASE PARTICLES 1 CAPSULE ORALLY ONCE A DAY TAKING LYRICA 200 MG CAPSULE 1 CAPSULE ORALLY TID MDD=3 TAKING METOPROLOL TARTRATE 25 MG TABLET 2 TABLET WITH FOOD IN AM PLUS 1 TABLET IN PM ORALLY DIRECTED TAKING METFORMIN HCL 850 MG TABLET 1 TABLET WITH A MEAL ORALLY BID TAKING TRULICITY 1.5 MG/0.5ML SOLUTION PEN-INJECTOR DIRECTED SUBCUTANEOUS WEEKLY, NOTES: USUALLY MONDAY TAKING MAY HAVE - - BI PAP TAKING INDOMETHACIN 50 MG CAPSULE 1 CAPSULE WITH FOOD OR MILK ORALLY NEEDED FOR PAIN TWICE A DAY TAKING BUPROPION HCL ER (SR) 150 MG TABLET EXTENDED RELEASE 12 HOUR 1 TABLET ORALLY TWICE A DAY TAKING OXYCODONE-ACETAMINOPHEN 10-325 MG TABLET 1 TABLET NEEDED ORALLY EVERY 6 HRS TAKING CYCLOBENZAPRINE HCL 10 MG TABLET 1 TABLET 1 TO 2 HOURS BEFORE BEDTIME ORALLY ONCE A DAY TAKING ENBREL MEDICATION LIST REVIEWED AND RECONCILED WITH THE PATIENT PAST MEDICAL HISTORY DM, A1C GOAL 7% CHRONIC LUNG DISEASE, FOLLOWS WITH DR. WARREN GERD, HAS NEVER SEEN A GI DOCTOR, DENIES HAVING HAD ESOPHAGOGASTRODUODENOSCOPY. ARTHRITIS BACK PAIN/NECK PAIN, CHRONIC SHOULDER PAIN AND CHRONIC LEG PAIN FOR WHICH SHE IS ON PERCOCET HYPERLIPIDEMIA HYPERTENSION, DENIES HISTORY OF HEART FAILURE, S/P HEART CATH REPORTEDLY NEG 2006, HAS HISTORY OF "SILENT HEART ATTACK" SO FOLLOWS DR. SHETH WHO DID STRESS JULY 2017, SHE GETS RLS FIBROMYALGIA RA, FOLLOWS WITH RHEUMATOLOGY PA IN [facility], PREVIOUSLY ENBREL BEFORE LOSING INSURANCE, LAST SEEN AUGUST 2017 PNEUMONIA OBESITY, LOST 100 POUNDS INTENTIONALLY WITHOUT WEIGHT LOSS SURGERY ANEMIA: UNCERTAIN CAUSE, DIAGNOSIS BY CARDIOLOGY, ON IRON OBSTRUCTIVE SLEEP APNEA, DR. WARREN, USES BIPAP EVERY NIGHT CORONARY ARTERY DISEASE-RACING HEART, SEE DR SHETH LUMBAR SPINE- BULGING/COMPRESSED DISCS ALLERGIES SEASONAL: RED, ITCHY EYES, HEADACHE, NASAL CONGESTION - ALLERGY SURGICAL HISTORY L KNEE REPLACEMENT 2013 CHOLECYSTECTOMY LEFT SHOULDER REPAIR NOVASURE ABLATION CARDIAC CATHETERIZATION 06/2018 GROWTH REMOVAL FROM INSIDE OF NOSE 06/06/19 FAMILY HISTORY FATHER: , RHEUMATOID, DIAGNOSED WITH UNSPECIFIED HEART DISEASE, DIABETES, UNSPECIFIED CEREBRAL ARTERY OCCLUSION WITH CEREBRAL INFARCTION, HYPERTENSION MOTHER: , RHEUMATOID, HYPERTENSION, UNSPECIFIED HEART DISEASE, OTHER MALIGNANT NEOPLASM OF UNSPECIFIED SITE MATERNAL GRAND MOTHER: RHEUMATOID 2 SISTER(S) - HEALTHY. 1 SON(S) - HEALTHY. MOTHER: LUNG CA\\\\\\\\\\\\\\\\NOLDER SISTER()- CHF, HEART DISEASE\\\\\\\\\\\\\\\\N. SOCIAL HISTORY GENERAL: TOBACCO USE ARE YOU A:CURRENT SMOKER ARE YOU INTERESTED IN QUITTING?NOT READY TO QUIT PT CURRENTLY USING WELLBUTRIN TO HELP QUIT/ STATES SHE IS CUTTIING DOWN COUNSELED THE PATIENT ON SMOKING EFFECTS, EDUCATION [id number]/08/2020 HOW MANY CIGARETTES A DAY DO YOU SMOKE?21-30 APPROX 4/DAY HOW SOON AFTER YOU WAKE UP DO YOU SMOKE YOUR FIRST CIGARETTE?6-30 MIN HOW OFTEN DO YOU SMOKE CIGARETTES?EVERY DAY PATIENT COUNSELED ON THE DANGERS OF TOBACCO USE AND URGED TO QUIT:12/05/2019 SMOKING CESSATION INFORMATION GIVEN09/18/2019 VAPORNO E-CIGARETTENO LATEX QUESTIONNAIRE LATEX ALLERGY : HAVE YOU EVER DEVELOPED ANY TYPE OF REACTION AFTER HANDLING LATEX PRODUCTS SUCH RUBBER GLOVES, CONDOMS, DIAPHRAGMS, BALLOONS, SOCKS, OR UNDERWEAR?NO LATEX ALLERGY : HAVE YOU EVER DEVELOPED ANY TYPE OF REACTION DURING OR AFTER DENTAL APPOINTMENT, VAGINAL/RECTAL EXAMINATION, SURGICAL PROCEDURE, OR ANY OTHER EXPOSURE?NO LATEX RISK : HAVE YOU EVER HAD ANY DIFFICULTY BREATHING OR HIVES AFTER EATING OR HANDLING ANY FRUITS, OR VEGETABLES; SUCH KIWI, BANANAS, STONE FRUITS, OR CHESTNUTSNO LATEX RISK : DO YOU HAVE A PREVIOUS PERSONAL HISTORY OF MORE THAN NINE SURGERIES, SPINA BIFIDA, OR REPEATED CATHERIZATIONS? NO LATEX RISK : ARE YOU FREQUENTLY EXPOSED TO LATEX PRODUCTS IN YOUR OCCUPATION?NO DATE ASKED : 12/05/2019 BMI CARE GOAL FOLLOW-UP ABOVE NORMAL BMI FOLLOW-UPDIETARY MANAGEMENT EDUCATION, GUIDANCE, AND COUNSELING ALCOHOL SCREENING DID YOU HAVE A DRINK CONTAINING ALCOHOL IN THE PAST YEAR?NO POINTS0 INTERPRETATIONNEGATIVE RECREATIONAL DRUG USE DRUG USE?NO CAFFEINE CAFFEINE USE?YES HOW OFTEN AND HOW MUCH? 2 CUPS COFFEE PER DAY DAILY BASIS SEXUAL HX HAD SEX IN THE LAST 12 MONTHS (VAGINAL, ORAL, OR ANAL)?NO HAVE YOU EVER HAD AN STD?NO HIV / HEP-C SCREENING HIV TEST OFFERED TO PATIENT:YES DATE OFFERED:05/16/2018 TEST ACCEPTED:NO HEP-C TEST OFFERED TO PATIENT:NO REASON:PATIENT DECLINED BROCHURE PROVIDED TO PATIENTYES PROTESTANT [id number] SHINTO LANGUAGE LANGUAGES SPOKEN:TAMAZIGHT EDUCATION LEVEL OF EDUCATION:HIGH SCHOOL LEARNING BARRIERS / SPECIAL NEEDS CHANGE FROM LAST VISIT?NO BARRIERS TO LEARNING?NO HEARING IMPAIRED?NO VISION IMPAIRED?YES READING GLASSES COGNITIVELY IMPAIRED?NO :CORRECTIVE LENSES READINESS TO LEARN?YES LEARNING PREFERENCES?NO LEARNING CAPABILITIES PRESENT?YES EMOTIONAL BARRIERS?NO SPECIAL DEVICES?NO PROGRAM ELIGIBILITY SPECIALIST NEEDED?NO DOMESTIC VIOLENCE DO YOU FEEL SAFE IN YOUR ENVIRONMENT?YES 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 EXERCISE: NO REGULAR EXERCISE. MARITAL STATUS: SINGLE. OTHERS AT HOME: NONE. PAIN CLINIC PFS, CLERGY, PUBLIC HEALTH REFERRALS PFS REFERRAL NEEDED?NO CLERGY REFERRAL NEEDED?NO PUBLIC HEALTH REFERRAL NEEDED?NO HAS THE PATIENT BEEN EDUCATED REGARDING HIS/HER PLAN OF CARE?YES HAS THE PATIENT BEEN EDUCATED REGARDING PAIN, THE RISK FOR PAIN, THE IMPORTANCE OF EFFECTIVE PAIN MANAGEMENT, AND THE PAIN ASSESSMENT PROCESS?YES ADVANCE DIRECTIVE ADVANCE DIRECTIVE DISCUSSED WITH PATIENT:YES PATEINT STATES SHE HAS A HCP - SONIA BENNETT (SISTER) [phone], ALSO HAS A DNR HOSPITALIZATION/MAJOR DIAGNOSTIC PROCEDURE SURGICALY RELATED PNEUMONIA-RESP FAILURE ON BIPAP 12/28/15 INFLUENZA/COPD 05/08/18 CHEST PAIN - CARDIAC CATHETERIZATION 06/2018 REVIEW OF SYSTEMS CONSTITUTIONAL: ANY RECENT FEVER NO . CHILLS NO . WEIGHT CHANGE OF UNKNOWN REASONS NO . GASTROENTEROLOGY: NEW UNEXPLAINABLE CHANGES IN BOWEL CONTROL NO . CONSTIPATION NO . GENITOURINARY: ANY NEW CHANGE IN BLADDER CONTROL? NO . NEUROLOGY: NEW ONSET DIZZINESS OR NEUROLOGICAL CHANGES NOT MENTIONED NO . NEW NUMBNESS OR PAIN PATTERNS NOT MENTIONED AND PERTINENT TO TODAY'S VISIT NO . CARDIOLOGY: NEW CHEST PRESSURE NO . NEW CHEST PAIN NO . RESPIRATORY: UNEXPLAINABLE COUGH NO . NEW SHORTNESS OF BREATH NO . VITAL SIGNS WT 246.4 LBS, HT 66.75 IN, BMI 38.88 INDEX, BP 215/100.RA, REPEAT BP 216/110.LA, HR 76 /MIN, RR 18 /MIN, TEMP 97.5 F, OXYGEN SAT % 96%, NA INITIALS SC 09:36NURSE KNOWS ABOUT PT.S BP AND WILL RECHECK. EXAMINATION GENERAL EXAMINATION: GENERALNO ACUTE DISTRESS, WELL NOURISHED AND HYDRATED. PSYCHAPPROPRIATE MOOD AND AFFECT . LUNGS:CLEAR TO AUSCULTATION BILATERALLY, NO WHEEZES, RHONCHI, RALES. HEART:NO MURMURS, REGULAR RATE AND RHYTHM. ASSESSMENTS PAIN IN LEFT SHOULDER - M25.512 (PRIMARY) LEFT ANTERIOR KNEE PAIN - M25.562 TREATMENT PAIN IN LEFT SHOULDER CLINICAL NOTES: 59-YEAR-OLD FEMALE IN FOR WORKER'S COMP. CHRONIC PAIN FOLLOW-UP. GIVEN PRESENTING SYMPTOMS RECOMMENDED CONTINUATION OF CURRENT MEDICATION REGIMEN WITH FOLLOW-UP IN 2 MONTHS. PATIENT HAS EXPRESSED UNDERSTANDING OF AND WAS IN AGREEMENT WITH TREATMENT PLAN. GIVEN TIME TO ASK QUESTIONS AND EXPRESS CONCERNS. , [employer] REGISTRY REVIEWED AND DEMONSTRATES COMPLLIANCE. (REF # [id number] ) BRINGS IN MEDICATIONS WHICH IS APPROPRIATE FOR WHAT WAS DISPENSED. RECENT URINE TOXICOLOGY REVIEWED. NO UNAUTHORIZED MEDICATIONS. NO ILLICIT SUBSTANCES AND PRESCRIBED MEDICATIONS WERE PRESENT. PREVENTIVE MEDICINE PAIN CLINIC TEACHING: THE PATIENT HAS BEEN EDUCATED REGARDING PAIN, THE RISK FOR PAIN, THE IMPORTANCE OF EFFECTIVE PAIN MANAGEMENT, AND THE PAIN ASSESSMENT PROCESS. : REVIEWED MEDICATION AND PATIENT CARE PLAN. PATIENT EXPRESSED UNDERSTANDING. PATIENT WAS GIVE A NARCOTIC AGREEMENT AND A ORAL UTOX SCREENING. PROCEDURE CODES FA211 ESTABILISHED PATIENT [facility] CHARGE DISPOSITION & COMMUNICATION FOLLOW UP 2 MONTHS (REASON: WORKER'S COMP. KNEE AND SHOULDER PAIN) ELECTRONICALLY SIGNED BY SOHEILA MEDRANO ON 12/06/2019 AT 12:28 PM EDT DISCLAIMER : THIS IS A VISIT SUMMARY EXTRACTED FROM THE [employer] CHART. IT IS NOT A COPY OF THE [employer] PROGRESS NOTE. PRETTY
--- NOTE | 2019-12-06 12:34 | ECWPNPC ---
PATIENT NAME: ESTHER MAE : 1960 GENDER: FEMALE VISIT DATE: 12/05/2019 DISCHARGE DATE: 12/05/19 1041 VISIT LOCKED DATE TIME: PHYSICIAN: FREDERICK MILES PHYSICIAN PAGER NO: ACTIVE RESOURCE: FREDERICK MILES REASON FOR APPOINTMENT 1. KNEE AND SHOULDER PAIN WORKER'S COMP. HISTORY OF PRESENT ILLNESS GENERAL: 59-YEAR-OLD FEMALE IN FOR WORKER'S COMP. CHRONIC PAIN FOLLOW-UP SHE RATES HER PAIN CURRENTLY AT A 10 OUT OF 10 AND DESCRIBES IT STABBING. PATIENT ADMITS TO NOT TAKING HER MEDICATION THIS MORNING AND FEELS THIS IS WHY SHE IS EXPERIENCING INCREASED PAIN AT THIS TIME. WHEN ASKED SHE ADMITS MEDICATIONS ARE HELPFUL AND DENIES MED SIDE EFFECTS AT THIS TIME. 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 FALL RISK SCREENING: SCREENING :NO FALLS REPORTED IN THE LAST YEAR PAIN SCREENING: PATIENT HAS A COMPLAINT OF ACUTE OR CHRONIC PAIN :YES LOCATION OF PAIN:LEFT SHOULDER, KNEES LEFT KNEE INTENSITY OF PAIN (SCALE OF 1 TO 10):10 WHAT DOES YOUR PAIN FEEL LIKE:STABBING DURATION:CONSTANT PAIN IS INCREASED BY:OTHERS PATEINT STATES SHE DOESN'T HAVE TO DO ANYTHING TO TRIGGER THE PAIN. PAIN IS DECREASED BY:OTHERS WALKING HELPS TO REDUCE PAIN NURSING NOTE: -. PAIN CENTER INTAKE QUESTIONS: DO YOU HAVE A HISTORY OF MRSA? :NO DO YOU TAKE A BLOOD THINNERS? :NO DO YOU HAVE ANY BLEEDING DISORDERS? :NO ANY NEW NUMBNESS OR WEAKNESS IN YOUR LEGS OR ARMS? :NO ANY PACEMAKER,DEFIBRILLATOR, OR DORSAL COLUMN STIMULATOR? :NO DO YOU HAVE ANY RASHES OR OPEN SORES? :NO ARE YOU ALLERGIC TO IV DYE? :NO ARE YOU DIABETIC? :YES ANY NEW PROBLEMS WITH YOUR MEDICATIONS? :NO HAVE YOU RECEIVED A VACCINE IN THE PAST 30 DAYS? :YES RECIEVED FLU VACCINE LAST MONDAY AT [facility]. DO YOU PLAN TO RECEIVE A VACCINE IN THE NEXT 21 DAYS? :NO DO YOU NEED ANY PRESCRIPTION? :NO DO YOU TAKE ANY IMMUNOSUPPRESSIVE MEDICATIONS? :NO IS THERE A CHANCE YOU COULD BE ? :NO ARE YOU BREAST FEEDING? :NO CURRENT MEDICATIONS TAKING EZETIMIBE 10 MG TABLET 1 TABLET ORALLY ONCE A DAY TAKING IRON 28 MG TABLET 1 TABLET ORALLY ONCE A DAY TAKING INCRUSE ELLIPTA 62.5 MCG/INH AEROSOL POWDER BREATH ACTIVATED 1 PUFF INHALATION ONCE A DAY TAKING IPRATROPIUM-ALBUTEROL 0.5-2.5 (3) MG/3ML SOLUTION 3 ML INHALATION EVERY 4 HRS NEEDED TAKING PROAIR HFA 108 (90 BASE) MCG/ACT AEROSOL SOLUTION 2 PUFFS NEEDED INHALATION EVERY 6 HRS TAKING ASPIR-81 81 MG TABLET DELAYED RELEASE 1 TABLET ORALLY ONCE A DAY TAKING CLOTRIMAZOLE 1 % CREAM 1 APPLICATION TO AFFECTED AREA OF LEFT FOOT EXTERNALLY TWICE A DAY NEEDED, NOTES: PRN TAKING MISC. DEVICES - MISCELLANEOUS BP CUFF, CHECK ONCE A DAY, DX: I10. TAKING GLUCOMETER E11.9 CHECK ACHS TAKING BLOOD GLUCOSE TEST - STRIP E11.9 CHECK ACHS IN VITRO DIRECTED TAKING LANCETS - MISCELLANEOUS E11.9 CHECK ACHS DIRECTED TAKING PRAVASTATIN SODIUM 80 MG TABLET 1 TABLET ORALLY ONCE A DAY TAKING CETIRIZINE HCL 10 MG TABLET 1 TABLET ORALLY ONCE A DAY TAKING TRIAMCINOLONE ACETONIDE 0.1 % CREAM 1 APPLICATION TO AFFECTED AREA EXTERNALLY TWICE A DAY TAKING ROPINIROLE HCL 0.5 MG TABLET 2 TAB ORALLY AT BEDTIME TAKING PANTOPRAZOLE SODIUM 40 MG TABLET DELAYED RELEASE TAKE ONE TABLET BY MOUTH ONCE A DAY (STOP OMEPRAZOLE) TAKING SPIRONOLACTONE 25 MG TABLET 1 TABLET ORALLY ONCE A DAY TAKING JARDIANCE 25 MG TABLET 1 TABLET ORALLY ONCE A DAY TAKING DULOXETINE HCL 60 MG CAPSULE DELAYED RELEASE PARTICLES 1 CAPSULE ORALLY ONCE A DAY TAKING LYRICA 200 MG CAPSULE 1 CAPSULE ORALLY TID MDD=3 TAKING METOPROLOL TARTRATE 25 MG TABLET 2 TABLET WITH FOOD IN AM PLUS 1 TABLET IN PM ORALLY DIRECTED TAKING METFORMIN HCL 850 MG TABLET 1 TABLET WITH A MEAL ORALLY BID TAKING TRULICITY 1.5 MG/0.5ML SOLUTION PEN-INJECTOR DIRECTED SUBCUTANEOUS WEEKLY, NOTES: USUALLY MONDAY TAKING MAY HAVE - - BI PAP TAKING INDOMETHACIN 50 MG CAPSULE 1 CAPSULE WITH FOOD OR MILK ORALLY NEEDED FOR PAIN TWICE A DAY TAKING BUPROPION HCL ER (SR) 150 MG TABLET EXTENDED RELEASE 12 HOUR 1 TABLET ORALLY TWICE A DAY TAKING OXYCODONE-ACETAMINOPHEN 10-325 MG TABLET 1 TABLET NEEDED ORALLY EVERY 6 HRS TAKING CYCLOBENZAPRINE HCL 10 MG TABLET 1 TABLET 1 TO 2 HOURS BEFORE BEDTIME ORALLY ONCE A DAY TAKING ENBREL MEDICATION LIST REVIEWED AND RECONCILED WITH THE PATIENT PAST MEDICAL HISTORY DM, A1C GOAL 7% CHRONIC LUNG DISEASE, FOLLOWS WITH DR. WARREN GERD, HAS NEVER SEEN A GI DOCTOR, DENIES HAVING HAD ESOPHAGOGASTRODUODENOSCOPY. ARTHRITIS BACK PAIN/NECK PAIN, CHRONIC SHOULDER PAIN AND CHRONIC LEG PAIN FOR WHICH SHE IS ON PERCOCET HYPERLIPIDEMIA HYPERTENSION, DENIES HISTORY OF HEART FAILURE, S/P HEART CATH REPORTEDLY NEG 2006, HAS HISTORY OF "SILENT HEART ATTACK" SO FOLLOWS DR. SHETH WHO DID STRESS JULY 2017, SHE GETS RLS FIBROMYALGIA RA, FOLLOWS WITH RHEUMATOLOGY PA IN [facility], PREVIOUSLY ENBREL BEFORE LOSING INSURANCE, LAST SEEN AUGUST 2017 PNEUMONIA OBESITY, LOST 100 POUNDS INTENTIONALLY WITHOUT WEIGHT LOSS SURGERY ANEMIA: UNCERTAIN CAUSE, DIAGNOSIS BY CARDIOLOGY, ON IRON OBSTRUCTIVE SLEEP APNEA, DR. WARREN, USES BIPAP EVERY NIGHT CORONARY ARTERY DISEASE-RACING HEART, SEE DR SHETH LUMBAR SPINE- BULGING/COMPRESSED DISCS ALLERGIES SEASONAL: RED, ITCHY EYES, HEADACHE, NASAL CONGESTION - ALLERGY SURGICAL HISTORY L KNEE REPLACEMENT 2013 CHOLECYSTECTOMY LEFT SHOULDER REPAIR NOVASURE ABLATION CARDIAC CATHETERIZATION 06/2018 GROWTH REMOVAL FROM INSIDE OF NOSE 06/06/19 FAMILY HISTORY FATHER: , RHEUMATOID, DIAGNOSED WITH UNSPECIFIED HEART DISEASE, DIABETES, UNSPECIFIED CEREBRAL ARTERY OCCLUSION WITH CEREBRAL INFARCTION, HYPERTENSION MOTHER: , RHEUMATOID, HYPERTENSION, UNSPECIFIED HEART DISEASE, OTHER MALIGNANT NEOPLASM OF UNSPECIFIED SITE MATERNAL GRAND MOTHER: RHEUMATOID 2 SISTER(S) - HEALTHY. 1 SON(S) - HEALTHY. MOTHER: LUNG CA\\\\\\\\\\\\\\\\NOLDER SISTER()- CHF, HEART DISEASE\\\\\\\\\\\\\\\\N. SOCIAL HISTORY GENERAL: TOBACCO USE ARE YOU A:CURRENT SMOKER ARE YOU INTERESTED IN QUITTING?NOT READY TO QUIT PT CURRENTLY USING WELLBUTRIN TO HELP QUIT/ STATES SHE IS CUTTIING DOWN COUNSELED THE PATIENT ON SMOKING EFFECTS, EDUCATION [id number]/08/2020 HOW MANY CIGARETTES A DAY DO YOU SMOKE?21-30 APPROX 4/DAY HOW SOON AFTER YOU WAKE UP DO YOU SMOKE YOUR FIRST CIGARETTE?6-30 MIN HOW OFTEN DO YOU SMOKE CIGARETTES?EVERY DAY PATIENT COUNSELED ON THE DANGERS OF TOBACCO USE AND URGED TO QUIT:12/05/2019 SMOKING CESSATION INFORMATION GIVEN09/18/2019 VAPORNO E-CIGARETTENO LATEX QUESTIONNAIRE LATEX ALLERGY : HAVE YOU EVER DEVELOPED ANY TYPE OF REACTION AFTER HANDLING LATEX PRODUCTS SUCH RUBBER GLOVES, CONDOMS, DIAPHRAGMS, BALLOONS, SOCKS, OR UNDERWEAR?NO LATEX ALLERGY : HAVE YOU EVER DEVELOPED ANY TYPE OF REACTION DURING OR AFTER DENTAL APPOINTMENT, VAGINAL/RECTAL EXAMINATION, SURGICAL PROCEDURE, OR ANY OTHER EXPOSURE?NO LATEX RISK : HAVE YOU EVER HAD ANY DIFFICULTY BREATHING OR HIVES AFTER EATING OR HANDLING ANY FRUITS, OR VEGETABLES; SUCH KIWI, BANANAS, STONE FRUITS, OR CHESTNUTSNO LATEX RISK : DO YOU HAVE A PREVIOUS PERSONAL HISTORY OF MORE THAN NINE SURGERIES, SPINA BIFIDA, OR REPEATED CATHERIZATIONS? NO LATEX RISK : ARE YOU FREQUENTLY EXPOSED TO LATEX PRODUCTS IN YOUR OCCUPATION?NO DATE ASKED : 12/05/2019 BMI CARE GOAL FOLLOW-UP ABOVE NORMAL BMI FOLLOW-UPDIETARY MANAGEMENT EDUCATION, GUIDANCE, AND COUNSELING ALCOHOL SCREENING DID YOU HAVE A DRINK CONTAINING ALCOHOL IN THE PAST YEAR?NO POINTS0 INTERPRETATIONNEGATIVE RECREATIONAL DRUG USE DRUG USE?NO CAFFEINE CAFFEINE USE?YES HOW OFTEN AND HOW MUCH? 2 CUPS COFFEE PER DAY DAILY BASIS SEXUAL HX HAD SEX IN THE LAST 12 MONTHS (VAGINAL, ORAL, OR ANAL)?NO HAVE YOU EVER HAD AN STD?NO HIV / HEP-C SCREENING HIV TEST OFFERED TO PATIENT:YES DATE OFFERED:05/16/2018 TEST ACCEPTED:NO HEP-C TEST OFFERED TO PATIENT:NO REASON:PATIENT DECLINED BROCHURE PROVIDED TO PATIENTYES QUAKER [id number] PROTESTANT LANGUAGE LANGUAGES SPOKEN:ARMENIAN EDUCATION LEVEL OF EDUCATION:HIGH SCHOOL LEARNING BARRIERS / SPECIAL NEEDS CHANGE FROM LAST VISIT?NO BARRIERS TO LEARNING?NO HEARING IMPAIRED?NO VISION IMPAIRED?YES READING GLASSES COGNITIVELY IMPAIRED?NO :CORRECTIVE LENSES READINESS TO LEARN?YES LEARNING PREFERENCES?NO LEARNING CAPABILITIES PRESENT?YES EMOTIONAL BARRIERS?NO SPECIAL DEVICES?NO INSURANCE INSPECTOR NEEDED?NO DOMESTIC VIOLENCE DO YOU FEEL SAFE IN YOUR ENVIRONMENT?YES 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 EXERCISE: NO REGULAR EXERCISE. MARITAL STATUS: SINGLE. OTHERS AT HOME: NONE. PAIN CLINIC PFS, CLERGY, PUBLIC HEALTH REFERRALS PFS REFERRAL NEEDED?NO CLERGY REFERRAL NEEDED?NO PUBLIC HEALTH REFERRAL NEEDED?NO HAS THE PATIENT BEEN EDUCATED REGARDING HIS/HER PLAN OF CARE?YES HAS THE PATIENT BEEN EDUCATED REGARDING PAIN, THE RISK FOR PAIN, THE IMPORTANCE OF EFFECTIVE PAIN MANAGEMENT, AND THE PAIN ASSESSMENT PROCESS?YES ADVANCE DIRECTIVE ADVANCE DIRECTIVE DISCUSSED WITH PATIENT:YES PATEINT STATES SHE HAS A HCP - SONIA BENNETT (SISTER) [phone], ALSO HAS A DNR HOSPITALIZATION/MAJOR DIAGNOSTIC PROCEDURE SURGICALY RELATED PNEUMONIA-RESP FAILURE ON BIPAP 12/28/15 INFLUENZA/COPD 05/08/18 CHEST PAIN - CARDIAC CATHETERIZATION 06/2018 REVIEW OF SYSTEMS CONSTITUTIONAL: ANY RECENT FEVER NO . CHILLS NO . WEIGHT CHANGE OF UNKNOWN REASONS NO . GASTROENTEROLOGY: NEW UNEXPLAINABLE CHANGES IN BOWEL CONTROL NO . CONSTIPATION NO . GENITOURINARY: ANY NEW CHANGE IN BLADDER CONTROL? NO . NEUROLOGY: NEW ONSET DIZZINESS OR NEUROLOGICAL CHANGES NOT MENTIONED NO . NEW NUMBNESS OR PAIN PATTERNS NOT MENTIONED AND PERTINENT TO TODAY'S VISIT NO . CARDIOLOGY: NEW CHEST PRESSURE NO . NEW CHEST PAIN NO . RESPIRATORY: UNEXPLAINABLE COUGH NO . NEW SHORTNESS OF BREATH NO . VITAL SIGNS WT 246.4 LBS, HT 66.75 IN, BMI 38.88 INDEX, BP 215/100.RA, REPEAT BP 216/110.LA, HR 76 /MIN, RR 18 /MIN, TEMP 97.5 F, OXYGEN SAT % 96%, NA INITIALS SC 09:36NURSE KNOWS ABOUT PT.S BP AND WILL RECHECK. EXAMINATION GENERAL EXAMINATION: GENERALNO ACUTE DISTRESS, WELL NOURISHED AND HYDRATED. PSYCHAPPROPRIATE MOOD AND AFFECT . LUNGS:CLEAR TO AUSCULTATION BILATERALLY, NO WHEEZES, RHONCHI, RALES. HEART:NO MURMURS, REGULAR RATE AND RHYTHM. ASSESSMENTS PAIN IN LEFT SHOULDER - M25.512 (PRIMARY) LEFT ANTERIOR KNEE PAIN - M25.562 TREATMENT PAIN IN LEFT SHOULDER CLINICAL NOTES: 59-YEAR-OLD FEMALE IN FOR WORKER'S COMP. CHRONIC PAIN FOLLOW-UP. GIVEN PRESENTING SYMPTOMS RECOMMENDED CONTINUATION OF CURRENT MEDICATION REGIMEN WITH FOLLOW-UP IN 2 MONTHS. PATIENT HAS EXPRESSED UNDERSTANDING OF AND WAS IN AGREEMENT WITH TREATMENT PLAN. GIVEN TIME TO ASK QUESTIONS AND EXPRESS CONCERNS. , ISTOP REGISTRY REVIEWED AND DEMONSTRATES COMPLLIANCE. (REF # [id number] ) BRINGS IN MEDICATIONS WHICH IS APPROPRIATE FOR WHAT WAS DISPENSED. RECENT URINE TOXICOLOGY REVIEWED. NO UNAUTHORIZED MEDICATIONS. NO ILLICIT SUBSTANCES AND PRESCRIBED MEDICATIONS WERE PRESENT. PREVENTIVE MEDICINE PAIN CLINIC TEACHING: THE PATIENT HAS BEEN EDUCATED REGARDING PAIN, THE RISK FOR PAIN, THE IMPORTANCE OF EFFECTIVE PAIN MANAGEMENT, AND THE PAIN ASSESSMENT PROCESS. : REVIEWED MEDICATION AND PATIENT CARE PLAN. PATIENT EXPRESSED UNDERSTANDING. PATIENT WAS GIVE A NARCOTIC AGREEMENT AND A ORAL UTOX SCREENING. PROCEDURE CODES FA211 ESTABILISHED PATIENT [facility] FACILITY CHARGE DISPOSITION & COMMUNICATION FOLLOW UP 2 MONTHS (REASON: WORKER'S COMP. KNEE AND SHOULDER PAIN) ELECTRONICALLY SIGNED BY SOHEILA MEDRANO ON 12/06/2019 AT 12:28 PM EDT DISCLAIMER : THIS IS A VISIT SUMMARY EXTRACTED FROM THE [employer] CHART. IT IS NOT A COPY OF THE [employer] PROGRESS NOTE. PRETTY
== END ==
LOC: M PAIN 09:15
PROVIDERS: ATTEND Family Medicine
DX: M25.512 Pain in left shoulder (principal); M25.562 Pain in left knee; G89.29 Other chronic pain; E11.9 Type 2 diabetes mellitus without complications; K21.9 Gastro-esophageal reflux disease without esophagitis; E78.5 Hyperlipidemia, unspecified; I10 Essential (primary) hypertension; G25.81 Restless legs syndrome; M79.7 Fibromyalgia; D50.9 Iron deficiency anemia, unspecified; G47.33 Obstructive sleep apnea (adult) (pediatric); F17.210 Nicotine dependence, cigarettes, uncomplicated; Z96.652 Presence of left artificial knee joint; Z79.51 Long term (current) use of inhaled steroids; Z79.82 Long term (current) use of aspirin; Z79.84 Long term (current) use of oral hypoglycemic drugs; Z79.899 Other long term (current) drug therapy

== ENCOUNTER → 2019-12-12 | Outpatient (CLI) | payer OTHER, MEDICAID ==
--- NOTE | 2019-12-16 09:16 | ECWPNPC ---
PATIENT NAME: ESTHER MAE : 1960 GENDER: FEMALE VISIT DATE: 12/12/2019 DISCHARGE DATE: 12/12/19 1006 VISIT LOCKED DATE TIME: PHYSICIAN: FREDERICK MILES PHYSICIAN PAGER NO: ACTIVE RESOURCE: FREDERICK MILES REASON FOR APPOINTMENT 1. FU HISTORY OF PRESENT ILLNESS DEPRESSION SCREENING: PHQ-9 LITTLE INTEREST OR PLEASURE IN DOING THINGSNEARLY EVERY DAY FEELING DOWN, DEPRESSED, OR HOPELESSNEARLY EVERY DAY TROUBLE FALLING OR STAYING ASLEEP, OR SLEEPING TOO MUCHNOT AT ALL FEELING TIRED OR HAVING LITTLE ENERGYNEARLY EVERY DAY POOR APPETITE OR OVEREATING NEARLY EVERY DAY FEELING BAD ABOUT YOURSELF-OR THAT YOU ARE A FAILURE OR HAVE LET YOURSELF OR YOUR FAMILY DOWN SEVERAL DAYS TROUBLE CONCENTRATING ON THINGS, SUCH READING THE NEWSPAPER OR WATCHING TELEVISION NOT AT ALL MOVING OR SPEAKING SO SLOWLY THAT OTHER PEOPLE COULD HAVE NOTICED. OR THE OPPOSITE- BEING SO FIDGETY OR RESTLESS THAT YOU HAVE BEEN MOVING AROUND A LOT MORE THAN USUALNEARLY EVERY DAY THOUGHTS THAT YOU WOULD BE BETTER OFF , OR OF HURTING YOURSELF IN SOME WAY?NOT AT ALL TOTAL SCORE:16 INTERPRETATIONMODERATELY SEVERE DEPRESSION PHQ-2 (2015 EDITION) LITTLE INTEREST OR PLEASURE IN DOING THINGS?NEARLY EVERY DAY FEELING DOWN, DEPRESSED, OR HOPELESS?NEARLY EVERY DAY TOTAL SCORE6 59-YEAR-OLD FEMALE IN FOR CHRONIC PAIN FOLLOW-UP. SHE RATES HER PAIN CURRENTLY AT A 10 OUT OF 10 AND DESCRIBES IT STABBING, BURNING, AND THROBBING. PATIENT FEELS HER MEDICATIONS ARE HELPFUL. PAIN CENTER INTAKE QUESTIONS: DO YOU HAVE A HISTORY OF MRSA? :NO DO YOU TAKE A BLOOD THINNERS? :NO DO YOU HAVE ANY BLEEDING DISORDERS? :NO ANY NEW NUMBNESS OR WEAKNESS IN YOUR LEGS OR ARMS? :NO ANY PACEMAKER,DEFIBRILLATOR, OR DORSAL COLUMN STIMULATOR? :NO DO YOU HAVE ANY RASHES OR OPEN SORES? :NO ARE YOU ALLERGIC TO IV DYE? :NO ARE YOU DIABETIC? :NO ANY NEW PROBLEMS WITH YOUR MEDICATIONS? :NO HAVE YOU RECEIVED A VACCINE IN THE PAST 30 DAYS? :NO DO YOU PLAN TO RECEIVE A VACCINE IN THE NEXT 21 DAYS? :NO DO YOU NEED ANY PRESCRIPTION? :NO DO YOU TAKE ANY IMMUNOSUPPRESSIVE MEDICATIONS? :NO IS THERE A CHANCE YOU COULD BE ? :NO ARE YOU BREAST FEEDING? :NO GENERAL: -. FALL RISK SCREENING: SCREENING :NO FALLS REPORTED IN THE LAST YEAR PAIN SCREENING: PATIENT HAS A COMPLAINT OF ACUTE OR CHRONIC PAIN :YES LOCATION OF PAIN:NECK, BACK, LEG(S) INTENSITY OF PAIN (SCALE OF 1 TO 10):10 WHAT DOES YOUR PAIN FEEL LIKE:STABBING, BURNING, THROBBING DURATION:CONSTANT PAIN IS INCREASED BY:PROLONGED STANDING, ACTIVITIES PAIN IS DECREASED BY:USE OF PAIN MEDICATIONS NURSING NOTE: PT STATES FOLLOWS WITH PRIMARY CARE PROVIDER FOR DEPRESSION AND WILL CALL TO REQUEST REFERRAL TO COUNSELOR. CURRENT MEDICATIONS TAKING EZETIMIBE 10 MG TABLET 1 TABLET ORALLY ONCE A DAY TAKING IRON 28 MG TABLET 1 TABLET ORALLY ONCE A DAY TAKING INCRUSE ELLIPTA 62.5 MCG/INH AEROSOL POWDER BREATH ACTIVATED 1 PUFF INHALATION ONCE A DAY TAKING IPRATROPIUM-ALBUTEROL 0.5-2.5 (3) MG/3ML SOLUTION 3 ML INHALATION EVERY 4 HRS NEEDED TAKING PROAIR HFA 108 (90 BASE) MCG/ACT AEROSOL SOLUTION 2 PUFFS NEEDED INHALATION EVERY 6 HRS TAKING ASPIR-81 81 MG TABLET DELAYED RELEASE 1 TABLET ORALLY ONCE A DAY TAKING CLOTRIMAZOLE 1 % CREAM 1 APPLICATION TO AFFECTED AREA OF LEFT FOOT EXTERNALLY TWICE A DAY NEEDED, NOTES: PRN TAKING MISC. DEVICES - MISCELLANEOUS BP CUFF, CHECK ONCE A DAY, DX: I10. TAKING GLUCOMETER E11.9 CHECK ACHS TAKING BLOOD GLUCOSE TEST - STRIP E11.9 CHECK ACHS IN VITRO DIRECTED TAKING LANCETS - MISCELLANEOUS E11.9 CHECK ACHS DIRECTED TAKING PRAVASTATIN SODIUM 80 MG TABLET 1 TABLET ORALLY ONCE A DAY TAKING CETIRIZINE HCL 10 MG TABLET 1 TABLET ORALLY ONCE A DAY TAKING TRIAMCINOLONE ACETONIDE 0.1 % CREAM 1 APPLICATION TO AFFECTED AREA EXTERNALLY TWICE A DAY TAKING ROPINIROLE HCL 0.5 MG TABLET 2 TAB ORALLY AT BEDTIME TAKING PANTOPRAZOLE SODIUM 40 MG TABLET DELAYED RELEASE TAKE ONE TABLET BY MOUTH ONCE A DAY (STOP OMEPRAZOLE) TAKING SPIRONOLACTONE 25 MG TABLET 1 TABLET ORALLY ONCE A DAY TAKING JARDIANCE 25 MG TABLET 1 TABLET ORALLY ONCE A DAY TAKING DULOXETINE HCL 60 MG CAPSULE DELAYED RELEASE PARTICLES 1 CAPSULE ORALLY ONCE A DAY TAKING LYRICA 200 MG CAPSULE 1 CAPSULE ORALLY TID MDD=3 TAKING METOPROLOL TARTRATE 25 MG TABLET 2 TABLET WITH FOOD IN AM PLUS 1 TABLET IN PM ORALLY DIRECTED TAKING METFORMIN HCL 850 MG TABLET 1 TABLET WITH A MEAL ORALLY BID TAKING MAY HAVE - - BI PAP TAKING INDOMETHACIN 50 MG CAPSULE 1 CAPSULE WITH FOOD OR MILK ORALLY NEEDED FOR PAIN TWICE A DAY TAKING BUPROPION HCL ER (SR) 150 MG TABLET EXTENDED RELEASE 12 HOUR 1 TABLET ORALLY TWICE A DAY TAKING OXYCODONE-ACETAMINOPHEN 10-325 MG TABLET 1 TABLET NEEDED ORALLY EVERY 6 HRS TAKING CYCLOBENZAPRINE HCL 10 MG TABLET 1 TABLET 1 TO 2 HOURS BEFORE BEDTIME ORALLY ONCE A DAY TAKING ENBREL TAKING TRULICITY 1.5 MG/0.5ML SOLUTION PEN-INJECTOR DIRECTED SUBCUTANEOUS WEEKLY MEDICATION LIST REVIEWED AND RECONCILED WITH THE PATIENT PAST MEDICAL HISTORY DM, A1C GOAL 7% CHRONIC LUNG DISEASE, FOLLOWS WITH DR. WARREN GERD, HAS NEVER SEEN A GI DOCTOR, DENIES HAVING HAD ESOPHAGOGASTRODUODENOSCOPY. ARTHRITIS BACK PAIN/NECK PAIN, CHRONIC SHOULDER PAIN AND CHRONIC LEG PAIN FOR WHICH SHE IS ON PERCOCET HYPERLIPIDEMIA HYPERTENSION, DENIES HISTORY OF HEART FAILURE, S/P HEART CATH REPORTEDLY NEG 2006, HAS HISTORY OF "SILENT HEART ATTACK" SO FOLLOWS DR. SHETH WHO DID STRESS JULY 2017, SHE GETS RLS FIBROMYALGIA RA, FOLLOWS WITH RHEUMATOLOGY PA IN [facility], PREVIOUSLY ENBREL BEFORE LOSING INSURANCE, LAST SEEN AUGUST 2017 PNEUMONIA OBESITY, LOST 100 POUNDS INTENTIONALLY WITHOUT WEIGHT LOSS SURGERY ANEMIA: UNCERTAIN CAUSE, DIAGNOSIS BY CARDIOLOGY, ON IRON OBSTRUCTIVE SLEEP APNEA, DR. WARREN, USES BIPAP EVERY NIGHT CORONARY ARTERY DISEASE-RACING HEART, SEE DR SHETH LUMBAR SPINE- BULGING/COMPRESSED DISCS DEPRESSION ALLERGIES SEASONAL: RED, ITCHY EYES, HEADACHE, NASAL CONGESTION - ALLERGY SURGICAL HISTORY L KNEE REPLACEMENT 2013 CHOLECYSTECTOMY LEFT SHOULDER REPAIR NOVASURE ABLATION CARDIAC CATHETERIZATION 06/2018 GROWTH REMOVAL FROM INSIDE OF NOSE 06/06/19 FAMILY HISTORY FATHER: , RHEUMATOID, DIAGNOSED WITH HYPERTENSION, UNSPECIFIED HEART DISEASE, DIABETES, UNSPECIFIED CEREBRAL ARTERY OCCLUSION WITH CEREBRAL INFARCTION MOTHER: , RHEUMATOID, HYPERTENSION, UNSPECIFIED HEART DISEASE, OTHER MALIGNANT NEOPLASM OF UNSPECIFIED SITE MATERNAL GRAND MOTHER: RHEUMATOID 2 SISTER(S) - HEALTHY. 1 SON(S) - HEALTHY. MOTHER: LUNG CA\\\\\\\\\\\\\\\\NOLDER SISTER()- CHF, HEART DISEASE\\\\\\\\\\\\\\\\N. SOCIAL HISTORY GENERAL: TOBACCO USE ARE YOU A:CURRENT SMOKER HOW OFTEN DO YOU SMOKE CIGARETTES?EVERY DAY HOW SOON AFTER YOU WAKE UP DO YOU SMOKE YOUR FIRST CIGARETTE?6-30 MIN HOW MANY CIGARETTES A DAY DO YOU SMOKE?21-30 APPROX 4/DAY ARE YOU INTERESTED IN QUITTING?NOT READY TO QUIT PT CURRENTLY USING WELLBUTRIN TO HELP QUIT/ STATES SHE IS CUTTIING DOWN PATIENT COUNSELED ON THE DANGERS OF TOBACCO USE AND URGED TO QUIT:12/05/2019 COUNSELED THE PATIENT ON SMOKING EFFECTS, EDUCATION [id number]/08/2020 VAPORNO E-CIGARETTENO SMOKING CESSATION INFORMATION GIVEN09/18/2019 LATEX QUESTIONNAIRE LATEX ALLERGY : HAVE YOU EVER DEVELOPED ANY TYPE OF REACTION AFTER HANDLING LATEX PRODUCTS SUCH RUBBER GLOVES, CONDOMS, DIAPHRAGMS, BALLOONS, SOCKS, OR UNDERWEAR?NO LATEX ALLERGY : HAVE YOU EVER DEVELOPED ANY TYPE OF REACTION DURING OR AFTER DENTAL APPOINTMENT, VAGINAL/RECTAL EXAMINATION, SURGICAL PROCEDURE, OR ANY OTHER EXPOSURE?NO DATE ASKED : 12/05/2019 LATEX RISK : HAVE YOU EVER HAD ANY DIFFICULTY BREATHING OR HIVES AFTER EATING OR HANDLING ANY FRUITS, OR VEGETABLES; SUCH KIWI, BANANAS, STONE FRUITS, OR CHESTNUTSNO LATEX RISK : DO YOU HAVE A PREVIOUS PERSONAL HISTORY OF MORE THAN NINE SURGERIES, SPINA BIFIDA, OR REPEATED CATHERIZATIONS? NO LATEX RISK : ARE YOU FREQUENTLY EXPOSED TO LATEX PRODUCTS IN YOUR OCCUPATION?NO BMI CARE GOAL FOLLOW-UP ABOVE NORMAL BMI FOLLOW-UPDIETARY MANAGEMENT EDUCATION, GUIDANCE, AND COUNSELING ALCOHOL SCREENING DID YOU HAVE A DRINK CONTAINING ALCOHOL IN THE PAST YEAR?NO POINTS0 INTERPRETATIONNEGATIVE RECREATIONAL DRUG USE DRUG USE?NO CAFFEINE CAFFEINE USE?YES HOW OFTEN AND HOW MUCH? 2 CUPS COFFEE PER DAY DAILY BASIS SEXUAL HX HAD SEX IN THE LAST 12 MONTHS (VAGINAL, ORAL, OR ANAL)?NO HAVE YOU EVER HAD AN STD?NO HIV / HEP-C SCREENING HIV TEST OFFERED TO PATIENT:YES DATE OFFERED:05/16/2018 TEST ACCEPTED:NO HEP-C TEST OFFERED TO PATIENT:NO REASON:PATIENT DECLINED BROCHURE PROVIDED TO PATIENTYES CONFUCIANIST [id number] MORMONISM LANGUAGE LANGUAGES SPOKEN:GRENADIAN EDUCATION LEVEL OF EDUCATION:HIGH SCHOOL LEARNING BARRIERS / SPECIAL NEEDS CHANGE FROM LAST VISIT?NO BARRIERS TO LEARNING?NO HEARING IMPAIRED?NO VISION IMPAIRED?YES READING GLASSES COGNITIVELY IMPAIRED?NO :CORRECTIVE LENSES READINESS TO LEARN?YES LEARNING PREFERENCES?NO LEARNING CAPABILITIES PRESENT?YES EMOTIONAL BARRIERS?NO SPECIAL DEVICES?NO ARBORIST REPRESENTATIVE NEEDED?NO DOMESTIC VIOLENCE DO YOU FEEL SAFE IN YOUR ENVIRONMENT?YES 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 EXERCISE: NO REGULAR EXERCISE. MARITAL STATUS: SINGLE. OTHERS AT HOME: NONE. PAIN CLINIC PFS, CLERGY, PUBLIC HEALTH REFERRALS PFS REFERRAL NEEDED?NO CLERGY REFERRAL NEEDED?NO PUBLIC HEALTH REFERRAL NEEDED?NO HAS THE PATIENT BEEN EDUCATED REGARDING HIS/HER PLAN OF CARE?YES HAS THE PATIENT BEEN EDUCATED REGARDING PAIN, THE RISK FOR PAIN, THE IMPORTANCE OF EFFECTIVE PAIN MANAGEMENT, AND THE PAIN ASSESSMENT PROCESS?YES ADVANCE DIRECTIVE ADVANCE DIRECTIVE DISCUSSED WITH PATIENT:YES PATEINT STATES SHE HAS A HCP - SONIA BENNETT (SISTER) [phone], ALSO HAS A DNR HOSPITALIZATION/MAJOR DIAGNOSTIC PROCEDURE SURGICALY RELATED PNEUMONIA-RESP FAILURE ON BIPAP 12/28/15 INFLUENZA/COPD 05/08/18 CHEST PAIN - CARDIAC CATHETERIZATION 06/2018 REVIEW OF SYSTEMS CONSTITUTIONAL: ANY RECENT FEVER NO . CHILLS NO . WEIGHT CHANGE OF UNKNOWN REASONS NO . GASTROENTEROLOGY: NEW UNEXPLAINABLE CHANGES IN BOWEL CONTROL YES, DIARRHEA . CONSTIPATION NO . GENITOURINARY: ANY NEW CHANGE IN BLADDER CONTROL? NO . NEUROLOGY: NEW ONSET DIZZINESS OR NEUROLOGICAL CHANGES NOT MENTIONED NO . NEW NUMBNESS OR PAIN PATTERNS NOT MENTIONED AND PERTINENT TO TODAY'S VISIT NO . CARDIOLOGY: NEW CHEST PRESSURE NO . NEW CHEST PAIN NO . RESPIRATORY: UNEXPLAINABLE COUGH NO . NEW SHORTNESS OF BREATH NO . VITAL SIGNS WT 240.6 LBS, HT 66.75 IN, BMI 37.96 INDEX, BP 138/64 MM HG, HR 78 /MIN, RR 18 /MIN, TEMP 78 F, OXYGEN SAT % 94%, SAFE IN ENV? (Y/N) YES, NA INITIALS CA 09:33, REVIEWED BY: ADI. EXAMINATION GENERAL EXAMINATION: GENERALNO ACUTE DISTRESS, WELL NOURISHED AND HYDRATED. PSYCHAPPROPRIATE MOOD AND AFFECT . LUNGS:CLEAR TO AUSCULTATION BILATERALLY, NO WHEEZES, RHONCHI, RALES. HEART:NO MURMURS, REGULAR RATE AND RHYTHM. ASSESSMENTS INTERVERTEBRAL DISC DISORDERS WITH RADICULOPATHY, LUMBOSACRAL REGION - M51.17 (PRIMARY) TREATMENT INTERVERTEBRAL DISC DISORDERS WITH RADICULOPATHY, LUMBOSACRAL REGION CLINICAL NOTES: DURAL FEMALE IN FOR CHRONIC PAIN FOLLOW-UP. GIVEN PRESENTING SYMPTOMS RECOMMENDED CONTINUATION OF CURRENT MEDICATION REGIMEN WITH FOLLOW-UP IN 3 MONTHS. PATIENT HAS EXPRESSED UNDERSTANDING OF AND WAS IN AGREEMENT WITH TREATMENT PLAN. GIVEN TIME TO ASK QUESTIONS AND EXPRESS CONCERNS. PROCEDURE CODES FA211 ESTABILISHED PATIENT [facility] CHARGE DISPOSITION & COMMUNICATION FOLLOW UP 3 MONTHS (REASON: BACK PAIN ) ELECTRONICALLY SIGNED BY SOHEILA MEDRANO ON 12/16/2019 AT 08:43 AM EDT DISCLAIMER : THIS IS A VISIT SUMMARY EXTRACTED FROM THE [employer] CHART. IT IS NOT A COPY OF THE [employer] PROGRESS NOTE. PRETTY
== END ==
LOC: M PAIN 09:00
PROVIDERS: ATTEND Family Medicine
DX: M51.17 Intervertebral disc disorders with radiculopathy, lumbosacral region (principal); G89.29 Other chronic pain; E11.9 Type 2 diabetes mellitus without complications; K21.9 Gastro-esophageal reflux disease without esophagitis; G25.81 Restless legs syndrome; M79.7 Fibromyalgia; D50.9 Iron deficiency anemia, unspecified; F17.210 Nicotine dependence, cigarettes, uncomplicated; Z86.59 Personal history of other mental and behavioral disorders; Z96.652 Presence of left artificial knee joint; Z79.51 Long term (current) use of inhaled steroids; Z79.82 Long term (current) use of aspirin; Z79.84 Long term (current) use of oral hypoglycemic drugs; Z79.899 Other long term (current) drug therapy

== ENCOUNTER → 2020-01-08 | Outpatient (CLI) | payer OTHER, MEDICAID ==
[2020-01-08 09:30] LABS: BASO # 0.1 10^3/uL (0.0-0.2); EOS # 0.1 10^3/uL (0.0-0.5); EOS % 1.9 % (0.0-3.0); HEMATOCRIT 44.8 % (36.0-47.0); HEMOGLOBIN 14.2 g/dl (12.0-15.5); LYMPH # 2.1 10^3/uL (1.5-5.0); LYMPH % 30.5 % (24.0-44.0); MEAN CORPUSCULAR HEMOGLOBIN 27.4 pg (27.0-33.0); MEAN CORPUSCULAR HGB CONC 31.7 g/dl (32.0-36.5); MEAN CORPUSCULAR VOLUME 86.5 fl (80.0-96.0); MONO # 0.4 10^3/uL (0.0-0.8); MONO % 5.2 % (0.0-5.0); NEUTROPHILS # 4.2 10^3/uL (1.5-8.5); PLATELET COUNT, AUTOMATED 254 10^3/uL (150-450); RED BLOOD COUNT 5.18 10^6/uL (4.00-5.40); WHITE BLOOD COUNT 6.9 10^3/uL (4.0-10.0)
[2020-01-08 10:03] LABS: ALBUMIN 3.7 GM/DL (3.2-5.2); BILIRUBIN,TOTAL 0.4 MG/DL (0.2-1.0); C REACTIVE PROTEIN QUANTITATIV 0.97 MG/DL (0.00-0.30); CALCIUM LEVEL 9.2 MG/DL (8.8-10.2); CREATININE FOR GFR 1.07 MG/DL (0.55-1.30); GLOMERULAR FILTRATION RATE 55.7 (>45); POTASSIUM SERUM 5.1 MEQ/L (3.5-5.1); TOTAL PROTEIN 6.7 GM/DL (6.4-8.2)
== END ==
LOC: M LAB 08:48
PROVIDERS: ATTEND Physician Assistant
DX: L40.9 Psoriasis, unspecified (principal)

== ENCOUNTER → 2020-01-20 | Outpatient (REF) | payer OTHER, MEDICAID | LOC: M SFHCLERA 09:45 | PROVIDERS: ATTEND Nurse Practitioner Family | DX: R39.15 Urgency of urination (principal) | CPT/HCPCS: 81002; 87086; G0463 ==

== ENCOUNTER → 2020-01-27 | Outpatient (REF) | payer OTHER, MEDICAID ==
[2020-01-28 12:01] LABS: APPEARANCE, URINE CLOUDY (CLEAR); BACTERIA, URINE AUTO NEGATIVE (NEGATIVE); BILIRUBIN, URINE AUTO NEGATIVE (NEGATIVE); BLOOD, URINE BLOOD NEGATIVE (NEGATIVE); COLOR, URINE YELLOW (YELLOW); GLUCOSE, URINE (UA) AUTO 3+ mg/dL (NEGATIVE); KETONE, URINE AUTO NEGATIVE (NEGATIVE); LEUKOCYTE ESTERASE, URINE AUTO NEGATIVE (NEGATIVE); NITRITE, URINE AUTO NEGATIVE (NEGATIVE); PROTEIN, URINE AUTO NEGATIVE (NEGATIVE); RBC, URINE AUTO 0 /HPF (0-3); SPECIFIC GRAVITY URINE AUTO 1.031 (1.002-1.035); SQUAMOUS EPITHELIAL CELL UR AU 23 /HPF (0-6); UROBILINOGEN, URINE AUTO 0.2 mg/dL (0.0-2.0); WBC, URINE AUTO 1 /HPF (0-3)
== END ==
LOC: M SFHCLERA 11:33
PROVIDERS: ATTEND Family Medicine
DX: R30.0 Dysuria (principal)

== ENCOUNTER → 2020-02-07 | Outpatient (CLI) | payer OTHER, MEDICAID ==
--- NOTE | 2020-02-11 05:21 | ECWPNPC ---
PATIENT NAME: ESTHER MAE : 1960 GENDER: FEMALE VISIT DATE: 02/07/2020 DISCHARGE DATE: 02/07/20 1109 VISIT LOCKED DATE TIME: PHYSICIAN: FREDERICK MILES PHYSICIAN PAGER NO: ACTIVE RESOURCE: FREDERICK MILES REASON FOR APPOINTMENT 1. W/C KNEE AND SHOULDER PAIN HISTORY OF PRESENT ILLNESS GENERAL: -59-YEAR-OLD FEMALE IN FOR WORKER'S COMP. CHRONIC PAIN FOLLOW-UP. SHE DOES FEEL HER MEDICATIONS ARE HELPFUL AND DENIES MED SIDE EFFECTS AT THIS TIME. 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 FALL RISK SCREENING: SCREENING :NO FALLS REPORTED IN THE LAST YEAR PAIN SCREENING: PATIENT HAS A COMPLAINT OF ACUTE OR CHRONIC PAIN :YES LOCATION OF PAIN:LEFT SHOULDER LEFT KNEE INTENSITY OF PAIN (SCALE OF 1 TO 10):10 WHAT DOES YOUR PAIN FEEL LIKE:ACHING, CONTINOUS, STABBING DURATION:CONTINOUS, CONSTANT, STEADY PAIN IS INCREASED BY:ACTIVITIES, PROLONGED STANDING PAIN IS DECREASED BY:USE OF PAIN MEDICATIONS NURSING NOTE: -. CURRENT MEDICATIONS TAKING EZETIMIBE 10 MG TABLET 1 TABLET ORALLY ONCE A DAY TAKING IRON 28 MG TABLET 1 TABLET ORALLY ONCE A DAY TAKING INCRUSE ELLIPTA 62.5 MCG/INH AEROSOL POWDER BREATH ACTIVATED 1 PUFF INHALATION ONCE A DAY TAKING IPRATROPIUM-ALBUTEROL 0.5-2.5 (3) MG/3ML SOLUTION 3 ML INHALATION EVERY 4 HRS NEEDED TAKING PROAIR HFA 108 (90 BASE) MCG/ACT AEROSOL SOLUTION 2 PUFFS NEEDED INHALATION EVERY 6 HRS TAKING ASPIR-81 81 MG TABLET DELAYED RELEASE 1 TABLET ORALLY ONCE A DAY TAKING CLOTRIMAZOLE 1 % CREAM 1 APPLICATION TO AFFECTED AREA OF LEFT FOOT EXTERNALLY TWICE A DAY NEEDED, NOTES: PRN TAKING MISC. DEVICES - MISCELLANEOUS BP CUFF, CHECK ONCE A DAY, DX: I10. TAKING GLUCOMETER E11.9 CHECK ACHS TAKING BLOOD GLUCOSE TEST - STRIP E11.9 CHECK ACHS IN VITRO DIRECTED TAKING LANCETS - MISCELLANEOUS E11.9 CHECK ACHS DIRECTED TAKING PRAVASTATIN SODIUM 80 MG TABLET 1 TABLET ORALLY ONCE A DAY TAKING CETIRIZINE HCL 10 MG TABLET 1 TABLET ORALLY ONCE A DAY TAKING TRIAMCINOLONE ACETONIDE 0.1 % CREAM 1 APPLICATION TO AFFECTED AREA EXTERNALLY TWICE A DAY TAKING ROPINIROLE HCL 0.5 MG TABLET 2 TAB ORALLY AT BEDTIME TAKING PANTOPRAZOLE SODIUM 40 MG TABLET DELAYED RELEASE TAKE ONE TABLET BY MOUTH ONCE A DAY (STOP OMEPRAZOLE) TAKING SPIRONOLACTONE 25 MG TABLET 1 TABLET ORALLY ONCE A DAY TAKING JARDIANCE 25 MG TABLET 1 TABLET ORALLY ONCE A DAY TAKING DULOXETINE HCL 60 MG CAPSULE DELAYED RELEASE PARTICLES 1 CAPSULE ORALLY ONCE A DAY TAKING MAY HAVE - - BI PAP TAKING BUPROPION HCL ER (SR) 150 MG TABLET EXTENDED RELEASE 12 HOUR 1 TABLET ORALLY TWICE A DAY TAKING CYCLOBENZAPRINE HCL 10 MG TABLET 1 TABLET 1 TO 2 HOURS BEFORE BEDTIME ORALLY ONCE A DAY TAKING ENBREL TAKING LYRICA 200 MG CAPSULE 1 CAPSULE ORALLY TID MDD=3 TAKING INDOMETHACIN 50 MG CAPSULE 1 CAPSULE WITH FOOD OR MILK ORALLY NEEDED FOR PAIN TWICE A DAY TAKING OXYCODONE-ACETAMINOPHEN 10-325 MG TABLET 1 TABLET NEEDED ORALLY EVERY 8 HRS TAKING BACTRIM DS 800-160 MG TABLET 1 TABLET ORALLY TWICE A DAY TAKING TRULICITY 1.5 MG/0.5ML SOLUTION PEN-INJECTOR DIRECTED SUBCUTANEOUS WEEKLY TAKING METFORMIN HCL 850 MG TABLET 1 TABLET WITH A MEAL ORALLY BID TAKING METOPROLOL TARTRATE 25 MG TABLET 2 TABLET WITH FOOD IN AM PLUS 1 TABLET IN PM ORALLY DIRECTED MEDICATION LIST REVIEWED AND RECONCILED WITH THE PATIENT PAST MEDICAL HISTORY DM, A1C GOAL 7% CHRONIC LUNG DISEASE, FOLLOWS WITH DR. WARREN GERD, HAS NEVER SEEN A GI DOCTOR, DENIES HAVING HAD ESOPHAGOGASTRODUODENOSCOPY. ARTHRITIS BACK PAIN/NECK PAIN, CHRONIC SHOULDER PAIN AND CHRONIC LEG PAIN FOR WHICH SHE IS ON PERCOCET HYPERLIPIDEMIA HYPERTENSION, DENIES HISTORY OF HEART FAILURE, S/P HEART CATH REPORTEDLY NEG 2006, HAS HISTORY OF "SILENT HEART ATTACK" SO FOLLOWS DR. SHETH WHO DID STRESS JULY 2017, SHE GETS RLS FIBROMYALGIA RA, FOLLOWS WITH RHEUMATOLOGY PA IN [facility], PREVIOUSLY ENBREL BEFORE LOSING INSURANCE, LAST SEEN AUGUST 2017 PNEUMONIA OBESITY, LOST 100 POUNDS INTENTIONALLY WITHOUT WEIGHT LOSS SURGERY ANEMIA: UNCERTAIN CAUSE, DIAGNOSIS BY CARDIOLOGY, ON IRON OBSTRUCTIVE SLEEP APNEA, DR. WARREN, USES BIPAP EVERY NIGHT CORONARY ARTERY DISEASE-RACING HEART, SEE DR SHETH LUMBAR SPINE- BULGING/COMPRESSED DISCS DEPRESSION ALLERGIES SEASONAL: RED, ITCHY EYES, HEADACHE, NASAL CONGESTION - ALLERGY SURGICAL HISTORY L KNEE REPLACEMENT 2013 CHOLECYSTECTOMY LEFT SHOULDER REPAIR NOVASURE ABLATION CARDIAC CATHETERIZATION 06/2018 GROWTH REMOVAL FROM INSIDE OF NOSE 06/06/19 FAMILY HISTORY FATHER: , RHEUMATOID, DIAGNOSED WITH HYPERTENSION, UNSPECIFIED HEART DISEASE, DIABETES, UNSPECIFIED CEREBRAL ARTERY OCCLUSION WITH CEREBRAL INFARCTION MOTHER: , RHEUMATOID, HYPERTENSION, UNSPECIFIED HEART DISEASE, OTHER MALIGNANT NEOPLASM OF UNSPECIFIED SITE MATERNAL GRAND MOTHER: RHEUMATOID 2 SISTER(S) - HEALTHY. 1 SON(S) - HEALTHY. MOTHER: LUNG CA\\\\\\\\\\\\\\\\NOLDER SISTER()- CHF, HEART DISEASE\\\\\\\\\\\\\\\\N. SOCIAL HISTORY GENERAL: TOBACCO USE ARE YOU A:CURRENT SMOKER ARE YOU INTERESTED IN QUITTING?NOT READY TO QUIT PT CURRENTLY USING WELLBUTRIN TO HELP QUIT/ STATES SHE IS CUTTIING DOWN COUNSELED THE PATIENT ON SMOKING EFFECTS, EDUCATION [id number]/08/2020 HOW MANY CIGARETTES A DAY DO YOU SMOKE?21-30 APPROX 4/DAY HOW SOON AFTER YOU WAKE UP DO YOU SMOKE YOUR FIRST CIGARETTE?6-30 MIN HOW OFTEN DO YOU SMOKE CIGARETTES?EVERY DAY PATIENT COUNSELED ON THE DANGERS OF TOBACCO USE AND URGED TO QUIT:12/05/2019 SMOKING CESSATION INFORMATION GIVEN02/07/2020 VAPORNO E-CIGARETTENO LATEX QUESTIONNAIRE LATEX ALLERGY : HAVE YOU EVER DEVELOPED ANY TYPE OF REACTION AFTER HANDLING LATEX PRODUCTS SUCH RUBBER GLOVES, CONDOMS, DIAPHRAGMS, BALLOONS, SOCKS, OR UNDERWEAR?NO LATEX ALLERGY : HAVE YOU EVER DEVELOPED ANY TYPE OF REACTION DURING OR AFTER DENTAL APPOINTMENT, VAGINAL/RECTAL EXAMINATION, SURGICAL PROCEDURE, OR ANY OTHER EXPOSURE?NO LATEX RISK : HAVE YOU EVER HAD ANY DIFFICULTY BREATHING OR HIVES AFTER EATING OR HANDLING ANY FRUITS, OR VEGETABLES; SUCH KIWI, BANANAS, STONE FRUITS, OR CHESTNUTSNO LATEX RISK : DO YOU HAVE A PREVIOUS PERSONAL HISTORY OF MORE THAN NINE SURGERIES, SPINA BIFIDA, OR REPEATED CATHERIZATIONS? NO LATEX RISK : ARE YOU FREQUENTLY EXPOSED TO LATEX PRODUCTS IN YOUR OCCUPATION?NO DATE ASKED : 02/07/2020 BMI CARE GOAL FOLLOW-UP ABOVE NORMAL BMI FOLLOW-UPDIETARY MANAGEMENT EDUCATION, GUIDANCE, AND COUNSELING ALCOHOL SCREENING DID YOU HAVE A DRINK CONTAINING ALCOHOL IN THE PAST YEAR?NO POINTS0 INTERPRETATIONNEGATIVE RECREATIONAL DRUG USE DRUG USE?NO CAFFEINE CAFFEINE USE?YES HOW OFTEN AND HOW MUCH? 2 CUPS COFFEE PER DAY DAILY BASIS SEXUAL HX HAD SEX IN THE LAST 12 MONTHS (VAGINAL, ORAL, OR ANAL)?NO HAVE YOU EVER HAD AN STD?NO HIV / HEP-C SCREENING HIV TEST OFFERED TO PATIENT:YES DATE OFFERED:05/16/2018 TEST ACCEPTED:NO HEP-C TEST OFFERED TO PATIENT:NO REASON:PATIENT DECLINED BROCHURE PROVIDED TO PATIENTYES BAPTIST [id number] ORTHODOX LANGUAGE LANGUAGES SPOKEN:YORUBA EDUCATION LEVEL OF EDUCATION:HIGH SCHOOL LEARNING BARRIERS / SPECIAL NEEDS CHANGE FROM LAST VISIT?NO BARRIERS TO LEARNING?NO HEARING IMPAIRED?NO VISION IMPAIRED?YES READING GLASSES COGNITIVELY IMPAIRED?NO :CORRECTIVE LENSES READINESS TO LEARN?YES LEARNING PREFERENCES?NO LEARNING CAPABILITIES PRESENT?YES EMOTIONAL BARRIERS?NO SPECIAL DEVICES?NO MED DIR NEEDED?NO DOMESTIC VIOLENCE DO YOU FEEL SAFE IN YOUR ENVIRONMENT?YES 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 EXERCISE: NO REGULAR EXERCISE. MARITAL STATUS: SINGLE. OTHERS AT HOME: NONE. PAIN CLINIC PFS, CLERGY, PUBLIC HEALTH REFERRALS PFS REFERRAL NEEDED?NO CLERGY REFERRAL NEEDED?NO PUBLIC HEALTH REFERRAL NEEDED?NO HAS THE PATIENT BEEN EDUCATED REGARDING HIS/HER PLAN OF CARE?YES HAS THE PATIENT BEEN EDUCATED REGARDING PAIN, THE RISK FOR PAIN, THE IMPORTANCE OF EFFECTIVE PAIN MANAGEMENT, AND THE PAIN ASSESSMENT PROCESS?YES ADVANCE DIRECTIVE ADVANCE DIRECTIVE DISCUSSED WITH PATIENT:YES PATEINT STATES SHE HAS A HCP - SONIA BENNETT (SISTER) [phone], ALSO HAS A DNR HOSPITALIZATION/MAJOR DIAGNOSTIC PROCEDURE SURGICALY RELATED PNEUMONIA-RESP FAILURE ON BIPAP 12/28/15 INFLUENZA/COPD 05/08/18 CHEST PAIN - CARDIAC CATHETERIZATION 06/2018 REVIEW OF SYSTEMS CONSTITUTIONAL: ANY RECENT FEVER NO . CHILLS NO . WEIGHT CHANGE OF UNKNOWN REASONS NO . GASTROENTEROLOGY: NEW UNEXPLAINABLE CHANGES IN BOWEL CONTROL NO . CONSTIPATION NO . GENITOURINARY: ANY NEW CHANGE IN BLADDER CONTROL? NO . NEUROLOGY: NEW ONSET DIZZINESS OR NEUROLOGICAL CHANGES NOT MENTIONED NO . NEW NUMBNESS OR PAIN PATTERNS NOT MENTIONED AND PERTINENT TO TODAY'S VISIT NO . CARDIOLOGY: NEW CHEST PRESSURE NO . NEW CHEST PAIN NO . RESPIRATORY: UNEXPLAINABLE COUGH NO . NEW SHORTNESS OF BREATH NO . VITAL SIGNS WT 238.2 LBS, HT 66.75 IN, BMI 37.58 INDEX, BP 139/87 MM HG, HR 83 /MIN, RR 18 /MIN, TEMP 96.9 F, OXYGEN SAT % 97%, NA INITIALS SC 10:35. EXAMINATION GENERAL EXAMINATION: GENERALNO ACUTE DISTRESS, WELL NOURISHED AND HYDRATED. PSYCHAPPROPRIATE MOOD AND AFFECT . LUNGS:CLEAR TO AUSCULTATION BILATERALLY, NO WHEEZES, RHONCHI, RALES. HEART:NO MURMURS, REGULAR RATE AND RHYTHM. ASSESSMENTS PAIN IN LEFT SHOULDER - M25.512 (PRIMARY) LEFT ANTERIOR KNEE PAIN - M25.562 TREATMENT PAIN IN LEFT SHOULDER NOTES: 59-YEAR-OLD FEMALE IN FOR WORKER'S COMP. CHRONIC PAIN FOLLOW-UP. GIVEN PRESENTING SYMPTOMS RECOMMENDED CONTINUATION OF CURRENT MEDICATION REGIMEN WITH FOLLOW-UP IN ONE MONTH. PATIENT HAS EXPRESSED UNDERSTANDING OF AND WAS IN AGREEMENT WITH TREATMENT PLAN. GIVEN TIME TO ASK QUESTIONS AND EXPRESS CONCERNS. , ISTOP REGISTRY REVIEWED AND DEMONSTRATES COMPLLIANCE. (REF # [id number] ) BRINGS IN MEDICATIONS WHICH IS APPROPRIATE FOR WHAT WAS DISPENSED. RECENT URINE TOXICOLOGY REVIEWED. NO UNAUTHORIZED MEDICATIONS. NO ILLICIT SUBSTANCES AND PRESCRIBED MEDICATIONS WERE PRESENT. OTHERS REFILL LYRICA CAPSULE, 200 MG, 1 CAPSULE, ORALLY, TID MDD=3, 30 DAYS, 90 CONTINUE OXYCODONE-ACETAMINOPHEN TABLET, 10-325 MG, 1 TABLET NEEDED, ORALLY, EVERY 8 HRS, 30 DAYS, 90 REFILL INDOMETHACIN CAPSULE, 50 MG, 1 CAPSULE WITH FOOD OR MILK, ORALLY NEEDED FOR PAIN, TWICE A DAY, 30 DAYS, 60 PROCEDURE CODES FA211 ESTABILISHED PATIENT [facility] CHARGE DISPOSITION & COMMUNICATION FOLLOW UP 4 WEEKS (REASON: WORKER'S COMP. CHRONIC PAIN) ELECTRONICALLY SIGNED BY SOHEILA MEDRANO ON 02/10/2020 AT 08:54 AM EST ADDENDUM: 02/10/2020 08:56 AM FREDERICK MILES > PN WORKMANS' COMP OPINION: IN YOUR OPINION, WAS THE INCIDENT THAT THE PATIENT DESCRIBED THE COMPETENT MEDICAL CAUSE OF THIS INJURY/ILLNESS? YES ARE THE PATIENT'S COMPLAINTS CONSISTENT WITH HIS/HER HISTORY OF THE INJURY/ILLNESS? YES IS THE PATIENT'S HISTORY OF THE INJURY/ILLNESS CONSISTENT WITH YOUR OBJECTIVE FINDING? YES WHAT IS THE PERCENTAGE OF TEMPORARY IMPAIRMENT? TOTAL = 100% IS THE PATIENT WORKING? NO DOCTOR ON SITE: JOSE HAUSER MD DISCLAIMER : THIS IS A VISIT SUMMARY EXTRACTED FROM THE [facility] CHART. IT IS NOT A COPY OF THE [facility] PROGRESS NOTE. MTDD
== END ==
LOC: M PAIN 10:15
PROVIDERS: ATTEND Family Medicine
DX: M25.512 Pain in left shoulder (principal); M25.562 Pain in left knee; G89.29 Other chronic pain; E11.9 Type 2 diabetes mellitus without complications; K21.9 Gastro-esophageal reflux disease without esophagitis; G25.81 Restless legs syndrome; M79.7 Fibromyalgia; G47.33 Obstructive sleep apnea (adult) (pediatric); D50.9 Iron deficiency anemia, unspecified; F17.210 Nicotine dependence, cigarettes, uncomplicated; Z86.59 Personal history of other mental and behavioral disorders; Z96.652 Presence of left artificial knee joint; Z79.51 Long term (current) use of inhaled steroids; Z79.82 Long term (current) use of aspirin; Z79.84 Long term (current) use of oral hypoglycemic drugs; Z79.899 Other long term (current) drug therapy

== ENCOUNTER → 2020-03-04 | Outpatient (CLI) | payer OTHER, MEDICAID ==
--- NOTE | 2020-03-05 23:09 | ECWPNPC ---
PATIENT NAME: ESTHER MAE : 1960 GENDER: FEMALE VISIT DATE: 03/04/2020 DISCHARGE DATE: 03/04/20 1150 VISIT LOCKED DATE TIME: PHYSICIAN: FREDERICK MILES PHYSICIAN PAGER NO: ACTIVE RESOURCE: FREDERICK MILES REASON FOR APPOINTMENT 1. W/C CHRONIC PAIN [phone] HISTORY OF PRESENT ILLNESS GENERAL: - 59-YEAR-OLD FEMALE FOR WORKER'S COMP. CHRONIC PAIN FOLLOW-UP. SHE RATES HER PAIN CURRENTLY AT A 9 OUT OF 10 AND DESCRIBES IT ACHING, CONTINUOUS, SHARP, THROBBING, AND SHOOTING. SHE FEELS HER MEDICATIONS ARE HELPFUL AND DENIES MED SIDE EFFECTS AT THIS TIME. SHE DOES ADMIT TO INCREASED PAIN OF RECENTLY. 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 FALL RISK SCREENING: SCREENING :NO FALLS REPORTED IN THE LAST YEAR PAIN SCREENING: PATIENT HAS A COMPLAINT OF ACUTE OR CHRONIC PAIN :YES LOCATION OF PAIN:BOTH SHOULDERS, UPPER BACK, MID BACK, LOW BACK, LEG(S), KNEES INTENSITY OF PAIN (SCALE OF 1 TO 10):9 WHAT DOES YOUR PAIN FEEL LIKE:ACHING, CONTINOUS, SHARP, THROBBING, SHOOTING DURATION:CONTINOUS, CONSTANT, ALL DAY PAIN IS INCREASED BY:ACTIVITIES PAIN IS DECREASED BY:USE OF PAIN MEDICATIONS, OTHERS WALKING TREATMENT/MEDICATIONS USED TO MANAGE PAIN:OPIOIDS LEVEL OF RELIEF FROM PAIN TREATMENTS IN THE PAST:25% PAIN HAS INTERFERED WITH THE FOLLOWING:WALKING ABILITY, SLEEP NURSING NOTE: -. PAIN CENTER INTAKE QUESTIONS: DO YOU HAVE A HISTORY OF MRSA? :NO DO YOU TAKE A BLOOD THINNERS? :NO DO YOU HAVE ANY BLEEDING DISORDERS? :NO ANY NEW NUMBNESS OR WEAKNESS IN YOUR LEGS OR ARMS? :NO ANY PACEMAKER,DEFIBRILLATOR, OR DORSAL COLUMN STIMULATOR? :NO DO YOU HAVE ANY RASHES OR OPEN SORES? :NO ARE YOU ALLERGIC TO IV DYE? :NO ARE YOU DIABETIC? :YES ANY NEW PROBLEMS WITH YOUR MEDICATIONS? :NO HAVE YOU RECEIVED A VACCINE IN THE PAST 30 DAYS? :NO DO YOU PLAN TO RECEIVE A VACCINE IN THE NEXT 21 DAYS? :NO DO YOU NEED ANY PRESCRIPTION? :NO DO YOU TAKE ANY IMMUNOSUPPRESSIVE MEDICATIONS? :NO IS THERE A CHANCE YOU COULD BE ? :NO ARE YOU BREAST FEEDING? :NO CURRENT MEDICATIONS TAKING EZETIMIBE 10 MG TABLET 1 TABLET ORALLY ONCE A DAY TAKING IRON 28 MG TABLET 1 TABLET ORALLY ONCE A DAY TAKING INCRUSE ELLIPTA 62.5 MCG/INH AEROSOL POWDER BREATH ACTIVATED 1 PUFF INHALATION ONCE A DAY TAKING IPRATROPIUM-ALBUTEROL 0.5-2.5 (3) MG/3ML SOLUTION 3 ML INHALATION EVERY 4 HRS NEEDED TAKING PROAIR HFA 108 (90 BASE) MCG/ACT AEROSOL SOLUTION 2 PUFFS NEEDED INHALATION EVERY 6 HRS TAKING ASPIR-81 81 MG TABLET DELAYED RELEASE 1 TABLET ORALLY ONCE A DAY TAKING CLOTRIMAZOLE 1 % CREAM 1 APPLICATION TO AFFECTED AREA OF LEFT FOOT EXTERNALLY TWICE A DAY NEEDED, NOTES: PRN TAKING MISC. DEVICES - MISCELLANEOUS BP CUFF, CHECK ONCE A DAY, DX: I10. TAKING GLUCOMETER E11.9 CHECK ACHS TAKING BLOOD GLUCOSE TEST - STRIP E11.9 CHECK ACHS IN VITRO DIRECTED TAKING LANCETS - MISCELLANEOUS E11.9 CHECK ACHS DIRECTED TAKING PRAVASTATIN SODIUM 80 MG TABLET 1 TABLET ORALLY ONCE A DAY TAKING CETIRIZINE HCL 10 MG TABLET 1 TABLET ORALLY ONCE A DAY TAKING TRIAMCINOLONE ACETONIDE 0.1 % CREAM 1 APPLICATION TO AFFECTED AREA EXTERNALLY TWICE A DAY TAKING ROPINIROLE HCL 0.5 MG TABLET 2 TAB ORALLY AT BEDTIME TAKING PANTOPRAZOLE SODIUM 40 MG TABLET DELAYED RELEASE TAKE ONE TABLET BY MOUTH ONCE A DAY (STOP OMEPRAZOLE) TAKING SPIRONOLACTONE 25 MG TABLET 1 TABLET ORALLY ONCE A DAY TAKING JARDIANCE 25 MG TABLET 1 TABLET ORALLY ONCE A DAY TAKING DULOXETINE HCL 60 MG CAPSULE DELAYED RELEASE PARTICLES 1 CAPSULE ORALLY ONCE A DAY TAKING MAY HAVE - - BI PAP TAKING BUPROPION HCL ER (SR) 150 MG TABLET EXTENDED RELEASE 12 HOUR 1 TABLET ORALLY TWICE A DAY TAKING CYCLOBENZAPRINE HCL 10 MG TABLET 1 TABLET 1 TO 2 HOURS BEFORE BEDTIME ORALLY ONCE A DAY TAKING ENBREL TAKING TRULICITY 1.5 MG/0.5ML SOLUTION PEN-INJECTOR DIRECTED SUBCUTANEOUS WEEKLY TAKING METFORMIN HCL 850 MG TABLET 1 TABLET WITH A MEAL ORALLY BID TAKING METOPROLOL TARTRATE 25 MG TABLET 2 TABLET WITH FOOD IN AM PLUS 1 TABLET IN PM ORALLY DIRECTED TAKING LYRICA 200 MG CAPSULE 1 CAPSULE ORALLY TID MDD=3 TAKING OXYCODONE-ACETAMINOPHEN 10-325 MG TABLET 1 TABLET NEEDED ORALLY EVERY 8 HRS TAKING INDOMETHACIN 50 MG CAPSULE 1 CAPSULE WITH FOOD OR MILK ORALLY NEEDED FOR PAIN TWICE A DAY NOT-TAKING BACTRIM DS 800-160 MG TABLET 1 TABLET ORALLY TWICE A DAY MEDICATION LIST REVIEWED AND RECONCILED WITH THE PATIENT PAST MEDICAL HISTORY DM, A1C GOAL 7% CHRONIC LUNG DISEASE, FOLLOWS WITH DR. WARREN GERD, HAS NEVER SEEN A GI DOCTOR, DENIES HAVING HAD ESOPHAGOGASTRODUODENOSCOPY. ARTHRITIS BACK PAIN/NECK PAIN, CHRONIC SHOULDER PAIN AND CHRONIC LEG PAIN FOR WHICH SHE IS ON PERCOCET HYPERLIPIDEMIA HYPERTENSION, DENIES HISTORY OF HEART FAILURE, S/P HEART CATH REPORTEDLY NEG 2006, HAS HISTORY OF "SILENT HEART ATTACK" SO FOLLOWS DR. SHETH WHO DID STRESS JULY 2017, SHE GETS RLS FIBROMYALGIA RA, FOLLOWS WITH RHEUMATOLOGY PA IN [facility], PREVIOUSLY ENBREL BEFORE LOSING INSURANCE, LAST SEEN AUGUST 2017 PNEUMONIA OBESITY, LOST 100 POUNDS INTENTIONALLY WITHOUT WEIGHT LOSS SURGERY ANEMIA: UNCERTAIN CAUSE, DIAGNOSIS BY CARDIOLOGY, ON IRON OBSTRUCTIVE SLEEP APNEA, DR. WARREN, USES BIPAP EVERY NIGHT CORONARY ARTERY DISEASE-RACING HEART, SEE DR SHETH LUMBAR SPINE- BULGING/COMPRESSED DISCS DEPRESSION ALLERGIES SEASONAL: RED, ITCHY EYES, HEADACHE, NASAL CONGESTION - ALLERGY SURGICAL HISTORY L KNEE REPLACEMENT 2013 CHOLECYSTECTOMY LEFT SHOULDER REPAIR NOVASURE ABLATION CARDIAC CATHETERIZATION 06/2018 GROWTH REMOVAL FROM INSIDE OF NOSE 06/06/19 FAMILY HISTORY FATHER: , RHEUMATOID, DIAGNOSED WITH DIABETES, UNSPECIFIED CEREBRAL ARTERY OCCLUSION WITH CEREBRAL INFARCTION, HYPERTENSION, UNSPECIFIED HEART DISEASE MOTHER: , RHEUMATOID, HYPERTENSION, UNSPECIFIED HEART DISEASE, OTHER MALIGNANT NEOPLASM OF UNSPECIFIED SITE MATERNAL GRAND MOTHER: RHEUMATOID 2 SISTER(S) - HEALTHY. 1 SON(S) - HEALTHY. MOTHER: LUNG CA\\\\\\\\\\\\\\\\NOLDER SISTER()- CHF, HEART DISEASE\\\\\\\\\\\\\\\\N. SOCIAL HISTORY GENERAL: TOBACCO USE ARE YOU A:CURRENT SMOKER ARE YOU INTERESTED IN QUITTING?NOT READY TO QUIT PT CURRENTLY USING WELLBUTRIN TO HELP QUIT/ STATES SHE IS CUTTIING DOWN COUNSELED THE PATIENT ON SMOKING EFFECTS, EDUCATION [id number]/06/2021 HOW MANY CIGARETTES A DAY DO YOU SMOKE?21-30 APPROX 4/DAY HOW SOON AFTER YOU WAKE UP DO YOU SMOKE YOUR FIRST CIGARETTE?6-30 MIN HOW OFTEN DO YOU SMOKE CIGARETTES?EVERY DAY PATIENT COUNSELED ON THE DANGERS OF TOBACCO USE AND URGED TO QUIT:12/05/2019 SMOKING CESSATION INFORMATION GIVEN02/07/2020 VAPORNO E-CIGARETTENO LATEX QUESTIONNAIRE LATEX ALLERGY : HAVE YOU EVER DEVELOPED ANY TYPE OF REACTION AFTER HANDLING LATEX PRODUCTS SUCH RUBBER GLOVES, CONDOMS, DIAPHRAGMS, BALLOONS, SOCKS, OR UNDERWEAR?NO LATEX ALLERGY : HAVE YOU EVER DEVELOPED ANY TYPE OF REACTION DURING OR AFTER DENTAL APPOINTMENT, VAGINAL/RECTAL EXAMINATION, SURGICAL PROCEDURE, OR ANY OTHER EXPOSURE?NO LATEX RISK : HAVE YOU EVER HAD ANY DIFFICULTY BREATHING OR HIVES AFTER EATING OR HANDLING ANY FRUITS, OR VEGETABLES; SUCH KIWI, BANANAS, STONE FRUITS, OR CHESTNUTSNO LATEX RISK : DO YOU HAVE A PREVIOUS PERSONAL HISTORY OF MORE THAN NINE SURGERIES, SPINA BIFIDA, OR REPEATED CATHERIZATIONS? NO LATEX RISK : ARE YOU FREQUENTLY EXPOSED TO LATEX PRODUCTS IN YOUR OCCUPATION?NO DATE ASKED : 03/04/2020 BMI CARE GOAL FOLLOW-UP ABOVE NORMAL BMI FOLLOW-UPDIETARY MANAGEMENT EDUCATION, GUIDANCE, AND COUNSELING ALCOHOL SCREENING DID YOU HAVE A DRINK CONTAINING ALCOHOL IN THE PAST YEAR?NO POINTS0 INTERPRETATIONNEGATIVE RECREATIONAL DRUG USE DRUG USE?NO CAFFEINE CAFFEINE USE?YES HOW OFTEN AND HOW MUCH? 2 CUPS COFFEE PER DAY DAILY BASIS SEXUAL HX HAD SEX IN THE LAST 12 MONTHS (VAGINAL, ORAL, OR ANAL)?NO HAVE YOU EVER HAD AN STD?NO HIV / HEP-C SCREENING HIV TEST OFFERED TO PATIENT:YES DATE OFFERED:05/16/2018 TEST ACCEPTED:NO HEP-C TEST OFFERED TO PATIENT:NO REASON:PATIENT DECLINED BROCHURE PROVIDED TO PATIENTYES JAINISM [id number] FAITH LANGUAGE LANGUAGES SPOKEN:THAI EDUCATION LEVEL OF EDUCATION:HIGH SCHOOL LEARNING BARRIERS / SPECIAL NEEDS CHANGE FROM LAST VISIT?NO BARRIERS TO LEARNING?NO HEARING IMPAIRED?NO VISION IMPAIRED?YES READING GLASSES COGNITIVELY IMPAIRED?NO :CORRECTIVE LENSES READINESS TO LEARN?YES LEARNING PREFERENCES?NO LEARNING CAPABILITIES PRESENT?YES EMOTIONAL BARRIERS?NO SPECIAL DEVICES?NO GUARD MANAGER NEEDED?NO DOMESTIC VIOLENCE DO YOU FEEL SAFE IN YOUR ENVIRONMENT?YES 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 EXERCISE: NO REGULAR EXERCISE. MARITAL STATUS: SINGLE. OTHERS AT HOME: NONE. PAIN CLINIC PFS, CLERGY, PUBLIC HEALTH REFERRALS PFS REFERRAL NEEDED?NO CLERGY REFERRAL NEEDED?NO PUBLIC HEALTH REFERRAL NEEDED?NO HAS THE PATIENT BEEN EDUCATED REGARDING HIS/HER PLAN OF CARE?YES HAS THE PATIENT BEEN EDUCATED REGARDING PAIN, THE RISK FOR PAIN, THE IMPORTANCE OF EFFECTIVE PAIN MANAGEMENT, AND THE PAIN ASSESSMENT PROCESS?YES ADVANCE DIRECTIVE ADVANCE DIRECTIVE DISCUSSED WITH PATIENT:YES PATEINT STATES SHE HAS A HCP - SONIA BENNETT (SISTER) [phone], ALSO HAS A DNR HOSPITALIZATION/MAJOR DIAGNOSTIC PROCEDURE SURGICALY RELATED PNEUMONIA-RESP FAILURE ON BIPAP 12/28/15 INFLUENZA/COPD 05/08/18 CHEST PAIN - CARDIAC CATHETERIZATION 06/2018 REVIEW OF SYSTEMS CONSTITUTIONAL: ANY RECENT FEVER NO . CHILLS NO . WEIGHT CHANGE OF UNKNOWN REASONS NO . GASTROENTEROLOGY: NEW UNEXPLAINABLE CHANGES IN BOWEL CONTROL NO . CONSTIPATION NO . GENITOURINARY: ANY NEW CHANGE IN BLADDER CONTROL? NO . NEUROLOGY: NEW ONSET DIZZINESS OR NEUROLOGICAL CHANGES NOT MENTIONED NO . NEW NUMBNESS OR PAIN PATTERNS NOT MENTIONED AND PERTINENT TO TODAY'S VISIT NO . CARDIOLOGY: NEW CHEST PRESSURE NO . NEW CHEST PAIN NO . RESPIRATORY: UNEXPLAINABLE COUGH NO . NEW SHORTNESS OF BREATH NO . EXAMINATION GENERAL EXAMINATION: PSYCHAPPROPRIATE MOOD AND AFFECT , ORIENTED X 3. 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 CHRONIC PAIN FOLLOW-UP. GIVEN PRESENTING SYMPTOMS RECOMMEND INCREASING PERCOCET TO 4 TABS DAILY NEEDED FOR PAIN WITH FOLLOW-UP IN 2 MONTHS. PATIENT HAS EXPRESSED UNDERSTANDING OF AND WAS IN AGREEMENT WITH TREATMENT PLAN. GIVEN TIME TO ASK QUESTIONS AND EXPRESS CONCERNS. , ISTOP REGISTRY REVIEWED AND DEMONSTRATES COMPLLIANCE. (REF # [id number]) BRINGS IN MEDICATIONS WHICH IS APPROPRIATE FOR WHAT WAS DISPENSED. RECENT URINE TOXICOLOGY REVIEWED. NO UNAUTHORIZED MEDICATIONS. NO ILLICIT SUBSTANCES AND PRESCRIBED MEDICATIONS WERE PRESENT. VISIT CONDUCTED VIA TELEPHONE. TIME SPENT WITH PATIENT 11 MINUTES. OTHERS NOTES: NO VITAL SIGN FOR VITURAL VISIT TT. DISPOSITION & COMMUNICATION FOLLOW UP 2 MONTHS (REASON: WORKERS COMP BACK PAIN) ELECTRONICALLY SIGNED BY SOHEILA MEDRANO ON 03/05/2020 AT 09:03 AM EST ADDENDUM: 03/05/2020 09:05 AM FREDERICK MILES > [facility] WORKMANS' COMP OPINION: IN YOUR OPINION, WAS THE INCIDENT THAT THE PATIENT DESCRIBED THE COMPETENT MEDICAL CAUSE OF THIS INJURY/ILLNESS? YES ARE THE PATIENT'S COMPLAINTS CONSISTENT WITH HIS/HER HISTORY OF THE INJURY/ILLNESS? YES IS THE PATIENT'S HISTORY OF THE INJURY/ILLNESS CONSISTENT WITH YOUR OBJECTIVE FINDING? YES WHAT IS THE PERCENTAGE OF TEMPORARY IMPAIRMENT? TOTAL = 100% IS THE PATIENT WORKING? NO DOCTOR ON SITE: JOSE HAUSER MD DISCLAIMER : THIS IS A VISIT SUMMARY EXTRACTED FROM THE [facility] CHART. IT IS NOT A COPY OF THE [employer] PROGRESS NOTE. PRETTY
== END ==
LOC: M PAIN 10:45
PROVIDERS: ATTEND Family Medicine
DX: M51.17 Intervertebral disc disorders with radiculopathy, lumbosacral region (principal); G89.29 Other chronic pain; E11.9 Type 2 diabetes mellitus without complications; K21.9 Gastro-esophageal reflux disease without esophagitis; G25.81 Restless legs syndrome; M79.7 Fibromyalgia; D50.9 Iron deficiency anemia, unspecified; G47.33 Obstructive sleep apnea (adult) (pediatric); F17.210 Nicotine dependence, cigarettes, uncomplicated; Z86.59 Personal history of other mental and behavioral disorders; Z96.652 Presence of left artificial knee joint; Z79.51 Long term (current) use of inhaled steroids; Z79.82 Long term (current) use of aspirin; Z79.84 Long term (current) use of oral hypoglycemic drugs; Z79.899 Other long term (current) drug therapy

== ENCOUNTER → 2020-03-05 | Outpatient (CLI) | payer OTHER, MEDICAID | LOC: M LABSMTC 13:22 | PROVIDERS: ATTEND Pediatrics | DX: Z20.822 Contact with and (suspected) exposure to COVID-19 (principal) ==

== ENCOUNTER → 2020-05-08 | Outpatient (CLI) | payer OTHER, MEDICAID ==
[~2020-05-08] MED LIST changes: +HYDR-3490 PO; -HYDR25TAB PO; +LISI10TA22 PO; -LISI10TA4 PO; -LISI40TA PO; +LISI40TA4 PO
--- NOTE | 2020-05-13 06:06 | ECWPNPC ---
PATIENT NAME: ESTHER MAE : 1960 GENDER: FEMALE VISIT DATE: 05/08/2020 DISCHARGE DATE: 05/08/20 1149 VISIT LOCKED DATE TIME: PHYSICIAN: FREDERICK MILES PHYSICIAN PAGER NO: ACTIVE RESOURCE: FREDERICK MILES REASON FOR APPOINTMENT 1. BACK PAIN HISTORY OF PRESENT ILLNESS GENERAL: 59-YEAR-OLD FEMALE IN FOR CHRONIC PAIN FOLLOW-UP. AT LAST CLINIC VISIT PATIENT WAS STARTED ON INCREASED DOSAGE OF HER OXYCODONE AND SHE ADMITS TODAY THAT THIS HAS BEEN BENEFICIAL. FURTHER STATING IT TAKES THE EDGE OFF. SHE RATES HER PAIN CURRENTLY AT A 9 OUT OF 10 AND DESCRIBES IT STABBING, THROBBING, AND SQUEEZING. FALL RISK SCREENING: SCREENING : NO FALLS REPORTED IN THE LAST YEAR , : NO FALLS REPORTED IN THE LAST YEAR , : NO FALLS REPORTED IN THE LAST YEAR. PAIN SCREENING: PATIENT HAS A COMPLAINT OF ACUTE OR CHRONIC PAIN :YES LOCATION OF PAIN:LEFT SHOULDER, KNEES INTENSITY OF PAIN (SCALE OF 1 TO 10):9 WHAT DOES YOUR PAIN FEEL LIKE:STABBING, THROBBING SHOULDER IS SQUEEZING AND THROBBING DURATION:CONTINOUS, CONSTANT, AWAKENS FROM SLEEP PAIN IS INCREASED BY:ACTIVITIES, PROLONGED STANDING PAIN IS DECREASED BY:OTHERS WALKING. PAIN MEDS TAKES THE EDGE OFF NURSING NOTE: - - -. PAIN CENTER INTAKE QUESTIONS: DO YOU HAVE A HISTORY OF MRSA? :NO DO YOU TAKE A BLOOD THINNERS? :NO ASPIRIN 81MG DAILY DO YOU HAVE ANY BLEEDING DISORDERS? :NO ANY NEW NUMBNESS OR WEAKNESS IN YOUR LEGS OR ARMS? :NO ANY PACEMAKER,DEFIBRILLATOR, OR DORSAL COLUMN STIMULATOR? :NO DO YOU HAVE ANY RASHES OR OPEN SORES? :NO ARE YOU ALLERGIC TO IV DYE? :NO ARE YOU DIABETIC? :YES TYPE II ANY NEW PROBLEMS WITH YOUR MEDICATIONS? :NO HAVE YOU RECEIVED A VACCINE IN THE PAST 30 DAYS? :YES IF SO WHAT VACCINE AND WHEN? PATIENT RECEIVED LAST COVID VACCINATION ON 04/21/2020 DO YOU PLAN TO RECEIVE A VACCINE IN THE NEXT 21 DAYS? :NO DO YOU NEED ANY PRESCRIPTION? :YES OXYCODONE DO YOU TAKE ANY IMMUNOSUPPRESSIVE MEDICATIONS? :NO DO YOU HAVE ANY KIDNEY OR LIVER DISEASE? :NO IS THERE A CHANCE YOU COULD BE ? :NO ARE YOU BREAST FEEDING? :NO CURRENT MEDICATIONS TAKING EZETIMIBE 10 MG TABLET 1 TABLET ORALLY ONCE A DAY TAKING IRON 28 MG TABLET 1 TABLET ORALLY ONCE A DAY TAKING INCRUSE ELLIPTA 62.5 MCG/INH AEROSOL POWDER BREATH ACTIVATED 1 PUFF INHALATION ONCE A DAY TAKING IPRATROPIUM-ALBUTEROL 0.5-2.5 (3) MG/3ML SOLUTION 3 ML INHALATION EVERY 4 HRS NEEDED TAKING PROAIR HFA 108 (90 BASE) MCG/ACT AEROSOL SOLUTION 2 PUFFS NEEDED INHALATION EVERY 6 HRS TAKING ASPIR-81 81 MG TABLET DELAYED RELEASE 1 TABLET ORALLY ONCE A DAY TAKING CLOTRIMAZOLE 1 % CREAM 1 APPLICATION TO AFFECTED AREA OF LEFT FOOT EXTERNALLY TWICE A DAY NEEDED, NOTES: PRN TAKING MISC. DEVICES - MISCELLANEOUS BP CUFF, CHECK ONCE A DAY, DX: I10. TAKING GLUCOMETER E11.9 CHECK ACHS TAKING BLOOD GLUCOSE TEST - STRIP E11.9 CHECK ACHS IN VITRO DIRECTED TAKING LANCETS - MISCELLANEOUS E11.9 CHECK ACHS DIRECTED TAKING PRAVASTATIN SODIUM 80 MG TABLET 1 TABLET ORALLY ONCE A DAY TAKING CETIRIZINE HCL 10 MG TABLET 1 TABLET ORALLY ONCE A DAY TAKING TRIAMCINOLONE ACETONIDE 0.1 % CREAM 1 APPLICATION TO AFFECTED AREA EXTERNALLY TWICE A DAY TAKING ROPINIROLE HCL 0.5 MG TABLET 2 TAB ORALLY AT BEDTIME TAKING PANTOPRAZOLE SODIUM 40 MG TABLET DELAYED RELEASE TAKE ONE TABLET BY MOUTH ONCE A DAY (STOP OMEPRAZOLE) TAKING MAY HAVE - - BI PAP TAKING BUPROPION HCL ER (SR) 150 MG TABLET EXTENDED RELEASE 12 HOUR 1 TABLET ORALLY TWICE A DAY TAKING CYCLOBENZAPRINE HCL 10 MG TABLET 1 TABLET 1 TO 2 HOURS BEFORE BEDTIME ORALLY ONCE A DAY TAKING ENBREL TAKING TRULICITY 1.5 MG/0.5ML SOLUTION PEN-INJECTOR DIRECTED SUBCUTANEOUS WEEKLY TAKING METFORMIN HCL 850 MG TABLET 1 TABLET WITH A MEAL ORALLY BID TAKING METOPROLOL TARTRATE 25 MG TABLET 2 TABLET WITH FOOD IN AM PLUS 1 TABLET IN PM ORALLY DIRECTED TAKING JARDIANCE 25 MG TABLET TAKE ONE TABLET BY MOUTH EVERY DAY TAKING SPIRONOLACTONE 25 MG TABLET TAKE ONE TABLET BY MOUTH EVERY DAY TAKING DULOXETINE HCL 60 MG CAPSULE DELAYED RELEASE PARTICLES 1 CAPSULE ORALLY ONCE A DAY TAKING INDOMETHACIN 50 MG CAPSULE 1 CAPSULE WITH FOOD OR MILK ORALLY NEEDED FOR PAIN TWICE A DAY TAKING LYRICA 200 MG CAPSULE 1 CAPSULE ORALLY TID MDD=3 TAKING OXYCODONE-ACETAMINOPHEN 10-325 MG TABLET 1 TABLET NEEDED ORALLY EVERY 6 HRS NEEDED FOR PAIN TAKING VITAMIN C 500 MG CAPSULE DIRECTED ORALLY TAKING VITAMIN B12 100 MCG TABLET DIRECTED ORALLY NOT-TAKING BACTRIM DS 800-160 MG TABLET 1 TABLET ORALLY TWICE A DAY MEDICATION LIST REVIEWED AND RECONCILED WITH THE PATIENT PAST MEDICAL HISTORY DM, A1C GOAL 7% CHRONIC LUNG DISEASE, FOLLOWS WITH DR. WARREN GERD, HAS NEVER SEEN A GI DOCTOR, DENIES HAVING HAD ESOPHAGOGASTRODUODENOSCOPY. ARTHRITIS BACK PAIN/NECK PAIN, CHRONIC SHOULDER PAIN AND CHRONIC LEG PAIN FOR WHICH SHE IS ON PERCOCET HYPERLIPIDEMIA HYPERTENSION, DENIES HISTORY OF HEART FAILURE, S/P HEART CATH REPORTEDLY NEG 2006, HAS HISTORY OF "SILENT HEART ATTACK" SO FOLLOWS DR. SHETH WHO DID STRESS JULY 2017, SHE GETS RLS FIBROMYALGIA RA, FOLLOWS WITH RHEUMATOLOGY PA IN [facility], PREVIOUSLY ENBREL BEFORE LOSING INSURANCE, LAST SEEN AUGUST 2017 PNEUMONIA OBESITY, LOST 100 POUNDS INTENTIONALLY WITHOUT WEIGHT LOSS SURGERY ANEMIA: UNCERTAIN CAUSE, DIAGNOSIS BY CARDIOLOGY, ON IRON OBSTRUCTIVE SLEEP APNEA, DR. WARREN, USES BIPAP EVERY NIGHT CORONARY ARTERY DISEASE-RACING HEART, SEE DR SHETH LUMBAR SPINE- BULGING/COMPRESSED DISCS DEPRESSION ALLERGIES SEASONAL: RED, ITCHY EYES, HEADACHE, NASAL CONGESTION - ALLERGY SOCIAL HISTORY GENERAL: TOBACCO USE ARE YOU A:CURRENT SMOKER HOW OFTEN DO YOU SMOKE CIGARETTES?EVERY DAY HOW SOON AFTER YOU WAKE UP DO YOU SMOKE YOUR FIRST CIGARETTE?6-30 MIN HOW MANY CIGARETTES A DAY DO YOU SMOKE?21-30 APPROX 4/DAY ARE YOU INTERESTED IN QUITTING?NOT READY TO QUIT PT CURRENTLY USING WELLBUTRIN TO HELP QUIT/ STATES SHE IS CUTTIING DOWN PATIENT COUNSELED ON THE DANGERS OF TOBACCO USE AND URGED TO QUIT:12/05/2019 COUNSELED THE PATIENT ON SMOKING EFFECTS, EDUCATION [id number]/06/2021 VAPORNO E-CIGARETTENO SMOKING CESSATION INFORMATION GIVEN02/07/2020 LATEX QUESTIONNAIRE LATEX ALLERGY : HAVE YOU EVER DEVELOPED ANY TYPE OF REACTION AFTER HANDLING LATEX PRODUCTS SUCH RUBBER GLOVES, CONDOMS, DIAPHRAGMS, BALLOONS, SOCKS, OR UNDERWEAR?NO LATEX ALLERGY : HAVE YOU EVER DEVELOPED ANY TYPE OF REACTION DURING OR AFTER DENTAL APPOINTMENT, VAGINAL/RECTAL EXAMINATION, SURGICAL PROCEDURE, OR ANY OTHER EXPOSURE?NO LATEX RISK : HAVE YOU EVER HAD ANY DIFFICULTY BREATHING OR HIVES AFTER EATING OR HANDLING ANY FRUITS, OR VEGETABLES; SUCH KIWI, BANANAS, STONE FRUITS, OR CHESTNUTSNO LATEX RISK : DO YOU HAVE A PREVIOUS PERSONAL HISTORY OF MORE THAN NINE SURGERIES, SPINA BIFIDA, OR REPEATED CATHERIZATIONS? NO LATEX RISK : ARE YOU FREQUENTLY EXPOSED TO LATEX PRODUCTS IN YOUR OCCUPATION?NO DATE ASKED : 05/08/2020 ALCOHOL USE: NO. BMI CARE GOAL FOLLOW-UP ABOVE NORMAL BMI FOLLOW-UPDIETARY MANAGEMENT EDUCATION, GUIDANCE, AND COUNSELING ALCOHOL SCREENING DID YOU HAVE A DRINK CONTAINING ALCOHOL IN THE PAST YEAR?NO POINTS0 INTERPRETATIONNEGATIVE RECREATIONAL DRUG USE DRUG USE?NO CAFFEINE CAFFEINE USE?YES HOW OFTEN AND HOW MUCH? 2 CUPS COFFEE PER DAY DAILY BASIS SEXUAL HX HAD SEX IN THE LAST 12 MONTHS (VAGINAL, ORAL, OR ANAL)?NO HAVE YOU EVER HAD AN STD?NO HIV / HEP-C SCREENING HIV TEST OFFERED TO PATIENT:YES DATE OFFERED:05/16/2018 TEST ACCEPTED:NO HEP-C TEST OFFERED TO PATIENT:NO REASON:PATIENT DECLINED BROCHURE PROVIDED TO PATIENTYES BAPTISM [id number] JAIN LANGUAGE LANGUAGES SPOKEN:ESTONIAN EDUCATION LEVEL OF EDUCATION:HIGH SCHOOL LEARNING BARRIERS / SPECIAL NEEDS CHANGE FROM LAST VISIT?NO BARRIERS TO LEARNING?NO HEARING IMPAIRED?NO VISION IMPAIRED?YES READING GLASSES :CORRECTIVE LENSES COGNITIVELY IMPAIRED?NO READINESS TO LEARN?YES LEARNING PREFERENCES?NO LEARNING CAPABILITIES PRESENT?YES EMOTIONAL BARRIERS?NO SPECIAL DEVICES?NO GAS STATION ATTENDANT NEEDED?NO DOMESTIC VIOLENCE DO YOU FEEL SAFE IN YOUR ENVIRONMENT?YES 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 EXERCISE: NO REGULAR EXERCISE. MARITAL STATUS: SINGLE. OTHERS AT HOME: NONE. - PFS REFERRAL NEEDED?NO CLERGY REFERRAL NEEDED?NO PUBLIC HEALTH REFERRAL NEEDED?NO HAS THE PATIENT BEEN EDUCATED REGARDING HIS/HER PLAN OF CARE?YES HAS THE PATIENT BEEN EDUCATED REGARDING PAIN, THE RISK FOR PAIN, THE IMPORTANCE OF EFFECTIVE PAIN MANAGEMENT, AND THE PAIN ASSESSMENT PROCESS?YES ADVANCE DIRECTIVE ADVANCE DIRECTIVE DISCUSSED WITH PATIENT:YES PATEINT STATES SHE HAS A HCP - SONIA DONALD (SISTER) [phone], ALSO HAS A DNR REVIEW OF SYSTEMS CONSTITUTIONAL: ANY RECENT FEVER NO . CHILLS NO . WEIGHT CHANGE OF UNKNOWN REASONS NO . GASTROENTEROLOGY: NEW UNEXPLAINABLE CHANGES IN BOWEL CONTROL NO . CONSTIPATION NO . GENITOURINARY: ANY NEW CHANGE IN BLADDER CONTROL? NO . NEUROLOGY: NEW ONSET DIZZINESS OR NEUROLOGICAL CHANGES NOT MENTIONED NO . NEW NUMBNESS OR PAIN PATTERNS NOT MENTIONED AND PERTINENT TO TODAY'S VISIT NO . CARDIOLOGY: NEW CHEST PRESSURE NO . PATIENT DENIES NO . RESPIRATORY: UNEXPLAINABLE COUGH NO . NEW SHORTNESS OF BREATH NO . VITAL SIGNS WT 244.6 LBS, HT 66.75 IN, BMI 38.59 INDEX, BP 186/84 MM HG, HR 70 /MIN, RR 20 /MIN, TEMP 96.8 F, OXYGEN SAT % 97%, SAFE IN ENV? (Y/N) YES, NA INITIALS GA 11:05, REVIEWED BY: ROCKY PURCELL MA. EXAMINATION GENERAL EXAMINATION: GENERALNO ACUTE DISTRESS, WELL NOURISHED AND HYDRATED. PSYCHAPPROPRIATE MOOD AND AFFECT . LUNGS:CLEAR TO AUSCULTATION BILATERALLY, NO WHEEZES, RHONCHI, RALES. HEART:NO MURMURS, REGULAR RATE AND RHYTHM. ASSESSMENTS INTERVERTEBRAL DISC DISORDERS WITH RADICULOPATHY, LUMBOSACRAL REGION - M51.17 (PRIMARY) CHRONIC PRESCRIPTION OPIATE USE - Z79.891 TREATMENT INTERVERTEBRAL DISC DISORDERS WITH RADICULOPATHY, LUMBOSACRAL REGION LAB: URINE TEST GROUP KOLE PURCELL 05/08/2020 11:38:54 AM > LAST DOSE: PREGABALIN 05/08/2020; NORCO 05/08/2020; INDOMETHACIN 05/08/2020 NOTES: 59-YEAR-OLD FEMALE IN FOR CHRONIC PAIN FOLLOW-UP. GIVEN PRESENTING SYMPTOMS RECOMMENDED CONTINUATION OF CURRENT MEDICATION REGIMEN WITH FOLLOW-UP IN 3 MONTHS. PATIENT HAS EXPRESSED UNDERSTANDING OF AND WAS IN AGREEMENT WITH TREATMENT PLAN. GIVEN TIME TO ASK QUESTIONS AND EXPRESS CONCERNS. , ISTOP REGISTRY REVIEWED AND DEMONSTRATES COMPLLIANCE. (REF # [id number] ) BRINGS IN MEDICATIONS WHICH IS APPROPRIATE FOR WHAT WAS DISPENSED. RECENT URINE TOXICOLOGY REVIEWED. NO UNAUTHORIZED MEDICATIONS. NO ILLICIT SUBSTANCES AND PRESCRIBED MEDICATIONS WERE PRESENT. PROCEDURE CODES FA211 ESTABILISHED PATIENT [facility] CHARGE DISPOSITION & COMMUNICATION FOLLOW UP 3 MONTHS (REASON: BACK PAIN) ELECTRONICALLY SIGNED BY SOHEILA MEDRANO ON 05/12/2020 AT 08:20 AM EDT DISCLAIMER : THIS IS A VISIT SUMMARY EXTRACTED FROM THE [facility] CHART. IT IS NOT A COPY OF THE [facility] PROGRESS NOTE. PRETTY
== END ==
LOC: M PAIN 11:15
PROVIDERS: ATTEND Family Medicine
DX: M51.17 Intervertebral disc disorders with radiculopathy, lumbosacral region (principal); E11.9 Type 2 diabetes mellitus without complications; K21.9 Gastro-esophageal reflux disease without esophagitis; E78.5 Hyperlipidemia, unspecified; I10 Essential (primary) hypertension; G25.81 Restless legs syndrome; M79.7 Fibromyalgia; M06.9 Rheumatoid arthritis, unspecified; D64.9 Anemia, unspecified; J30.2 Other seasonal allergic rhinitis; G47.33 Obstructive sleep apnea (adult) (pediatric); F32.9 Major depressive disorder, single episode, unspecified; F17.210 Nicotine dependence, cigarettes, uncomplicated; Z79.84 Long term (current) use of oral hypoglycemic drugs; Z79.891 Long term (current) use of opiate analgesic; Z79.899 Other long term (current) drug therapy

== ENCOUNTER → 2020-05-18 | Outpatient (CLI) | payer OTHER, MEDICAID, MEDICARE ==
--- NOTE | 2020-05-20 06:14 | ECWPNPC ---
PATIENT NAME: ESTHER MAE : 1960 GENDER: FEMALE VISIT DATE: 05/18/2020 DISCHARGE DATE: 05/18/20 0943 VISIT LOCKED DATE TIME: PHYSICIAN: FREDERICK MILES PHYSICIAN PAGER NO: ACTIVE RESOURCE: FREDERICK MILES REASON FOR APPOINTMENT 1. BACK PAIN HISTORY OF PRESENT ILLNESS GENERAL: - 59-YEAR-OLD FEMALE IN FOR CHRONIC PAIN FOLLOW-UP. SHE RATES HER PAIN CURRENTLY AT A 10 OUT OF 10 AND DESCRIBES IT ACHING, CONTINUOUS, SHARP, STABBING, THROBBING, AND SHOOTING. PATIENT FEELS HER MEDICATIONS ARE HELPFUL AND DENIES MED SIDE EFFECTS AT THIS TIME. PATIENT WOULD LIKE TO DISCUSS POTENTIAL IN-HOME PHYSICAL THERAPY. FALL RISK SCREENING: SCREENING TWO FALLS REPORTED IN THE LAST YEAR WITH INJURY. PATIENT DID NOT SEEK IMMEDIATE MEDICAL TREATMENT FOR EITHER FALLS.. PAIN SCREENING: PATIENT HAS A COMPLAINT OF ACUTE OR CHRONIC PAIN :YES LOCATION OF PAIN:UPPER BACK, MID BACK, LOW BACK INTENSITY OF PAIN (SCALE OF 1 TO 10):10 WHAT DOES YOUR PAIN FEEL LIKE:ACHING, CONTINOUS, SHARP, STABBING, THROBBING, SHOOTING DURATION:CONTINOUS, CONSTANT, AWAKENS FROM SLEEP PAIN IS INCREASED BY:ACTIVITIES, PROLONGED STANDING PAIN IS DECREASED BY:USE OF PAIN MEDICATIONS NURSING NOTE: -. PAIN CENTER INTAKE QUESTIONS: DO YOU HAVE A HISTORY OF MRSA? :NO DO YOU TAKE A BLOOD THINNERS? :YES INDOMETHACIN, 81 MG. ASPIRIN DO YOU HAVE ANY BLEEDING DISORDERS? :NO ANY NEW NUMBNESS OR WEAKNESS IN YOUR LEGS OR ARMS? :YES BILATERAL LEG WEAKNESS ANY PACEMAKER,DEFIBRILLATOR, OR DORSAL COLUMN STIMULATOR? :NO DO YOU HAVE ANY RASHES OR OPEN SORES? :NO ARE YOU ALLERGIC TO IV DYE? :NO ARE YOU DIABETIC? :YES TYPE II ANY NEW PROBLEMS WITH YOUR MEDICATIONS? :NO HAVE YOU RECEIVED A VACCINE IN THE PAST 30 DAYS? :YES IF SO WHAT VACCINE AND WHEN? SECOND COVID VACCINATION 04/20/2020 DO YOU PLAN TO RECEIVE A VACCINE IN THE NEXT 21 DAYS? :NO DO YOU NEED ANY PRESCRIPTION? :NO DO YOU TAKE ANY IMMUNOSUPPRESSIVE MEDICATIONS? :NO DO YOU HAVE ANY KIDNEY OR LIVER DISEASE? :NO IS THERE A CHANCE YOU COULD BE ? :NO ARE YOU BREAST FEEDING? :NO CURRENT MEDICATIONS TAKING EZETIMIBE 10 MG TABLET 1 TABLET ORALLY ONCE A DAY TAKING IRON 28 MG TABLET 1 TABLET ORALLY ONCE A DAY TAKING INCRUSE ELLIPTA 62.5 MCG/INH AEROSOL POWDER BREATH ACTIVATED 1 PUFF INHALATION ONCE A DAY TAKING IPRATROPIUM-ALBUTEROL 0.5-2.5 (3) MG/3ML SOLUTION 3 ML INHALATION EVERY 4 HRS NEEDED TAKING PROAIR HFA 108 (90 BASE) MCG/ACT AEROSOL SOLUTION 2 PUFFS NEEDED INHALATION EVERY 6 HRS TAKING ASPIR-81 81 MG TABLET DELAYED RELEASE 1 TABLET ORALLY ONCE A DAY TAKING CLOTRIMAZOLE 1 % CREAM 1 APPLICATION TO AFFECTED AREA OF LEFT FOOT EXTERNALLY TWICE A DAY NEEDED, NOTES: PRN TAKING MISC. DEVICES - MISCELLANEOUS BP CUFF, CHECK ONCE A DAY, DX: I10. TAKING GLUCOMETER E11.9 CHECK ACHS TAKING BLOOD GLUCOSE TEST - STRIP E11.9 CHECK ACHS IN VITRO DIRECTED TAKING LANCETS - MISCELLANEOUS E11.9 CHECK ACHS DIRECTED TAKING PRAVASTATIN SODIUM 80 MG TABLET 1 TABLET ORALLY ONCE A DAY TAKING CETIRIZINE HCL 10 MG TABLET 1 TABLET ORALLY ONCE A DAY TAKING TRIAMCINOLONE ACETONIDE 0.1 % CREAM 1 APPLICATION TO AFFECTED AREA EXTERNALLY TWICE A DAY TAKING ROPINIROLE HCL 0.5 MG TABLET 2 TAB ORALLY AT BEDTIME TAKING PANTOPRAZOLE SODIUM 40 MG TABLET DELAYED RELEASE TAKE ONE TABLET BY MOUTH ONCE A DAY (STOP OMEPRAZOLE) TAKING MAY HAVE - - BI PAP TAKING BUPROPION HCL ER (SR) 150 MG TABLET EXTENDED RELEASE 12 HOUR 1 TABLET ORALLY TWICE A DAY TAKING CYCLOBENZAPRINE HCL 10 MG TABLET 1 TABLET 1 TO 2 HOURS BEFORE BEDTIME ORALLY ONCE A DAY TAKING ENBREL TAKING TRULICITY 1.5 MG/0.5ML SOLUTION PEN-INJECTOR DIRECTED SUBCUTANEOUS WEEKLY TAKING METFORMIN HCL 850 MG TABLET 1 TABLET WITH A MEAL ORALLY BID TAKING METOPROLOL TARTRATE 25 MG TABLET 2 TABLET WITH FOOD IN AM PLUS 1 TABLET IN PM ORALLY DIRECTED TAKING JARDIANCE 25 MG TABLET TAKE ONE TABLET BY MOUTH EVERY DAY TAKING SPIRONOLACTONE 25 MG TABLET TAKE ONE TABLET BY MOUTH EVERY DAY TAKING DULOXETINE HCL 60 MG CAPSULE DELAYED RELEASE PARTICLES 1 CAPSULE ORALLY ONCE A DAY TAKING INDOMETHACIN 50 MG CAPSULE 1 CAPSULE WITH FOOD OR MILK ORALLY NEEDED FOR PAIN TWICE A DAY TAKING LYRICA 200 MG CAPSULE 1 CAPSULE ORALLY TID MDD=3 TAKING VITAMIN C 500 MG CAPSULE DIRECTED ORALLY TAKING VITAMIN B12 100 MCG TABLET DIRECTED ORALLY TAKING OXYCODONE-ACETAMINOPHEN 10-325 MG TABLET 1 TABLET NEEDED ORALLY EVERY 6 HRS NEEDED FOR PAIN NOT-TAKING BACTRIM DS 800-160 MG TABLET 1 TABLET ORALLY TWICE A DAY MEDICATION LIST REVIEWED AND RECONCILED WITH THE PATIENT PAST MEDICAL HISTORY DM, A1C GOAL 7% CHRONIC LUNG DISEASE, FOLLOWS WITH DR. WARREN GERD, HAS NEVER SEEN A GI DOCTOR, DENIES HAVING HAD ESOPHAGOGASTRODUODENOSCOPY. ARTHRITIS BACK PAIN/NECK PAIN, CHRONIC SHOULDER PAIN AND CHRONIC LEG PAIN FOR WHICH SHE IS ON PERCOCET HYPERLIPIDEMIA HYPERTENSION, DENIES HISTORY OF HEART FAILURE, S/P HEART CATH REPORTEDLY NEG 2006, HAS HISTORY OF "SILENT HEART ATTACK" SO FOLLOWS DR. SHETH WHO DID STRESS JULY 2017, SHE GETS RLS FIBROMYALGIA RA, FOLLOWS WITH RHEUMATOLOGY PA IN [facility], PREVIOUSLY ENBREL BEFORE LOSING INSURANCE, LAST SEEN AUGUST 2017 PNEUMONIA OBESITY, LOST 100 POUNDS INTENTIONALLY WITHOUT WEIGHT LOSS SURGERY ANEMIA: UNCERTAIN CAUSE, DIAGNOSIS BY CARDIOLOGY, ON IRON OBSTRUCTIVE SLEEP APNEA, DR. WARREN, USES BIPAP EVERY NIGHT CORONARY ARTERY DISEASE-RACING HEART, SEE DR SHETH LUMBAR SPINE- BULGING/COMPRESSED DISCS DEPRESSION ALLERGIES SEASONAL: RED, ITCHY EYES, HEADACHE, NASAL CONGESTION - ALLERGY SOCIAL HISTORY GENERAL: TOBACCO USE ARE YOU A:CURRENT SMOKER HOW OFTEN DO YOU SMOKE CIGARETTES?EVERY DAY HOW SOON AFTER YOU WAKE UP DO YOU SMOKE YOUR FIRST CIGARETTE?6-30 MIN HOW MANY CIGARETTES A DAY DO YOU SMOKE?21-30 APPROX 4/DAY ARE YOU INTERESTED IN QUITTING?NOT READY TO QUIT PT CURRENTLY USING WELLBUTRIN TO HELP QUIT/ STATES SHE IS CUTTIING DOWN PATIENT COUNSELED ON THE DANGERS OF TOBACCO USE AND URGED TO QUIT:12/05/2019 COUNSELED THE PATIENT ON SMOKING EFFECTS, EDUCATION [id number]/06/2021 VAPORNO E-CIGARETTENO SMOKING CESSATION INFORMATION GIVEN02/07/2020 LATEX QUESTIONNAIRE LATEX ALLERGY : HAVE YOU EVER DEVELOPED ANY TYPE OF REACTION AFTER HANDLING LATEX PRODUCTS SUCH RUBBER GLOVES, CONDOMS, DIAPHRAGMS, BALLOONS, SOCKS, OR UNDERWEAR?NO LATEX ALLERGY : HAVE YOU EVER DEVELOPED ANY TYPE OF REACTION DURING OR AFTER DENTAL APPOINTMENT, VAGINAL/RECTAL EXAMINATION, SURGICAL PROCEDURE, OR ANY OTHER EXPOSURE?NO LATEX RISK : HAVE YOU EVER HAD ANY DIFFICULTY BREATHING OR HIVES AFTER EATING OR HANDLING ANY FRUITS, OR VEGETABLES; SUCH KIWI, BANANAS, STONE FRUITS, OR CHESTNUTSNO LATEX RISK : DO YOU HAVE A PREVIOUS PERSONAL HISTORY OF MORE THAN NINE SURGERIES, SPINA BIFIDA, OR REPEATED CATHERIZATIONS? NO LATEX RISK : ARE YOU FREQUENTLY EXPOSED TO LATEX PRODUCTS IN YOUR OCCUPATION?NO DATE ASKED : 05/18/2020 ALCOHOL USE: NO. BMI CARE GOAL FOLLOW-UP ABOVE NORMAL BMI FOLLOW-UPDIETARY MANAGEMENT EDUCATION, GUIDANCE, AND COUNSELING ALCOHOL SCREENING DID YOU HAVE A DRINK CONTAINING ALCOHOL IN THE PAST YEAR?NO POINTS0 INTERPRETATIONNEGATIVE RECREATIONAL DRUG USE DRUG USE?NO CAFFEINE CAFFEINE USE?YES HOW OFTEN AND HOW MUCH? 2 CUPS COFFEE PER DAY DAILY BASIS SEXUAL HX HAD SEX IN THE LAST 12 MONTHS (VAGINAL, ORAL, OR ANAL)?NO HAVE YOU EVER HAD AN STD?NO HIV / HEP-C SCREENING HIV TEST OFFERED TO PATIENT:YES DATE OFFERED:05/16/2018 TEST ACCEPTED:NO HEP-C TEST OFFERED TO PATIENT:NO REASON:PATIENT DECLINED BROCHURE PROVIDED TO PATIENTYES RASTAFARIAN [id number] RASTAFARIAN LANGUAGE LANGUAGES SPOKEN:SERBIAN EDUCATION LEVEL OF EDUCATION:HIGH SCHOOL LEARNING BARRIERS / SPECIAL NEEDS CHANGE FROM LAST VISIT?NO BARRIERS TO LEARNING?NO HEARING IMPAIRED?NO VISION IMPAIRED?YES READING GLASSES :CORRECTIVE LENSES COGNITIVELY IMPAIRED?NO READINESS TO LEARN?YES LEARNING PREFERENCES?NO LEARNING CAPABILITIES PRESENT?YES EMOTIONAL BARRIERS?NO SPECIAL DEVICES?NO MICROARRAY SPECIALIST NEEDED?NO DOMESTIC VIOLENCE DO YOU FEEL SAFE IN YOUR ENVIRONMENT?YES 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 EXERCISE: NO REGULAR EXERCISE. MARITAL STATUS: SINGLE. OTHERS AT HOME: NONE. - PFS REFERRAL NEEDED?NO CLERGY REFERRAL NEEDED?NO PUBLIC HEALTH REFERRAL NEEDED?NO HAS THE PATIENT BEEN EDUCATED REGARDING HIS/HER PLAN OF CARE?YES HAS THE PATIENT BEEN EDUCATED REGARDING PAIN, THE RISK FOR PAIN, THE IMPORTANCE OF EFFECTIVE PAIN MANAGEMENT, AND THE PAIN ASSESSMENT PROCESS?YES ADVANCE DIRECTIVE ADVANCE DIRECTIVE DISCUSSED WITH PATIENT:YES PATEINT STATES SHE HAS A HCP - OSNIA BENNETT (SISTER) [phone], ALSO HAS A DNR REVIEW OF SYSTEMS CONSTITUTIONAL: ANY RECENT FEVER NO . CHILLS NO . WEIGHT CHANGE OF UNKNOWN REASONS NO . GASTROENTEROLOGY: NEW UNEXPLAINABLE CHANGES IN BOWEL CONTROL NO . CONSTIPATION NO . GENITOURINARY: ANY NEW CHANGE IN BLADDER CONTROL? NO . NEUROLOGY: NEW ONSET DIZZINESS OR NEUROLOGICAL CHANGES NOT MENTIONED NO . NEW NUMBNESS OR PAIN PATTERNS NOT MENTIONED AND PERTINENT TO TODAY'S VISIT NO . CARDIOLOGY: NEW CHEST PRESSURE NO . PATIENT DENIES NO . RESPIRATORY: UNEXPLAINABLE COUGH NO . NEW SHORTNESS OF BREATH NO . VITAL SIGNS WT 244.6 LBS, HT 66.75 IN, BMI 38.59 INDEX, BP 203/97 MM HG, REPEAT BP 158/96 MANUAL, HR 71 /MIN, RR 20 /MIN, TEMP 95.0 F, OXYGEN SAT % 96%, SAFE IN ENV? (Y/N) YES, NA INITIALS [place] 09:18, REVIEWED BY: MYLES IS AWERE OF PT'S BP AND WILL RECHECK.PROVIDER NOTIFIED OF REPEAT MANUAL BP. KOLE PURCELL MA. EXAMINATION GENERAL EXAMINATION: GENERALNO ACUTE DISTRESS, WELL NOURISHED AND HYDRATED. PSYCHAPPROPRIATE MOOD AND AFFECT . LUNGS:CLEAR TO AUSCULTATION BILATERALLY, NO WHEEZES, RHONCHI, RALES. HEART:NO MURMURS, REGULAR RATE AND RHYTHM. ASSESSMENTS INTERVERTEBRAL DISC DISORDERS WITH RADICULOPATHY, LUMBAR REGION - M51.16 (PRIMARY), RISK: (NULL) TREATMENT INTERVERTEBRAL DISC DISORDERS WITH RADICULOPATHY, LUMBAR REGION NOTES: 59-YEAR-OLD FEMALE IN FOR CHRONIC PAIN FOLLOW-UP. GIVEN PRESENTING SYMPTOMS RECOMMEND PHYSICAL THERAPY WITH FOLLOW-UP IN 3 MONTHS. PATIENT HAS EXPRESSED UNDERSTANDING OF AND WAS IN AGREEMENT WITH TREATMENT PLAN. GIVEN TIME TO ASK QUESTIONS AND EXPRESS CONCERNS. , ISTOP REGISTRY REVIEWED AND DEMONSTRATES COMPLLIANCE. (REF # [id number] ) BRINGS IN MEDICATIONS WHICH IS APPROPRIATE FOR WHAT WAS DISPENSED. RECENT URINE TOXICOLOGY REVIEWED. NO UNAUTHORIZED MEDICATIONS. NO ILLICIT SUBSTANCES AND PRESCRIBED MEDICATIONS WERE PRESENT. [facility]:IN HOME PT PROCEDURE CODES FA211 ESTABILISHED PATIENT [facility] CHARGE DISPOSITION & COMMUNICATION FOLLOW UP 3 MONTHS (REASON: BACK PAIN ) ELECTRONICALLY SIGNED BY SOHEILA MEDRANO ON 05/19/2020 AT 08:38 AM EDT DISCLAIMER : THIS IS A VISIT SUMMARY EXTRACTED FROM THE [employer] CHART. IT IS NOT A COPY OF THE [employer] PROGRESS NOTE. PRETTY
== END ==
LOC: M PAIN 09:30
PROVIDERS: ATTEND Family Medicine
DX: M51.16 Intervertebral disc disorders with radiculopathy, lumbar region (principal); E11.9 Type 2 diabetes mellitus without complications; K21.9 Gastro-esophageal reflux disease without esophagitis; E78.5 Hyperlipidemia, unspecified; I10 Essential (primary) hypertension; M79.7 Fibromyalgia; G25.81 Restless legs syndrome; M06.9 Rheumatoid arthritis, unspecified; E66.9 Obesity, unspecified; G47.33 Obstructive sleep apnea (adult) (pediatric); J30.2 Other seasonal allergic rhinitis; I25.10 Atherosclerotic heart disease of native coronary artery without angina pectoris; F32.9 Major depressive disorder, single episode, unspecified; F17.210 Nicotine dependence, cigarettes, uncomplicated; Z79.891 Long term (current) use of opiate analgesic; Z79.84 Long term (current) use of oral hypoglycemic drugs; Z68.38 Body mass index [BMI] 38.0-38.9, adult

== ENCOUNTER → 2020-05-21 | Outpatient (CLI) | payer OTHER, MEDICAID ==
[2020-05-21 07:03] LABS: BASO # 0.1 10^3/uL (0.0-0.2); BASO % 1.1 % (0.0-1.0); EOS # 0.1 10^3/uL (0.0-0.5); EOS % 1.9 % (0.0-3.0); HEMATOCRIT 45.1 % (36.0-47.0); LYMPH # 1.7 10^3/uL (1.5-5.0); LYMPH % 23.5 % (24.0-44.0); MEAN CORPUSCULAR HEMOGLOBIN 27.1 pg (27.0-33.0); MEAN CORPUSCULAR VOLUME 87.2 fl (80.0-96.0); MONO # 0.4 10^3/uL (0.0-0.8); NEUTROPHILS # 4.8 10^3/uL (1.5-8.5); NEUTROPHILS % 66.9 % (36.0-66.0); PLATELET COUNT, AUTOMATED 277 10^3/uL (150-450); RED BLOOD COUNT 5.17 10^6/uL (4.00-5.40); WHITE BLOOD COUNT 7.2 10^3/uL (4.0-10.0)
[2020-05-21 07:28] LABS: ALBUMIN 3.7 GM/DL (3.2-5.2); BILIRUBIN,TOTAL 0.2 MG/DL (0.2-1.0); C REACTIVE PROTEIN QUANTITATIV 0.3 MG/DL (0.00-0.30); CALCIUM LEVEL 9.1 MG/DL (8.8-10.2); CREATININE FOR GFR 1.12 MG/DL (0.55-1.30); GLOMERULAR FILTRATION RATE 52.8 (>45); POTASSIUM SERUM 5.3 MEQ/L (3.5-5.1); TOTAL PROTEIN 6.8 GM/DL (6.4-8.2)
== END ==
LOC: M LAB 06:15
PROVIDERS: ATTEND Physician Assistant
DX: L40.50 Arthropathic psoriasis, unspecified (principal)

== ENCOUNTER → 2020-05-21 | Outpatient (CLI) | payer OTHER, MEDICAID ==
[2020-05-21 07:28] LABS: CALCIUM LEVEL 8.7 MG/DL (8.8-10.2); CHOLESTEROL RISK RATIO 5.41 (<5); CREATININE FOR GFR 1.12 MG/DL (0.55-1.30); GLOMERULAR FILTRATION RATE 52.8 (>45); POTASSIUM SERUM 5.3 MEQ/L (3.5-5.1)
[2020-05-21 07:30] LABS: HEMOGLOBIN A1c 6.5 %
[2020-05-21 07:36] LABS: MAU/CREAT RATIO 13.8 MCG/MG (0.0-30.0)
== END ==
LOC: M LAB 06:12
PROVIDERS: ATTEND Family Medicine
DX: E53.8 Deficiency of other specified B group vitamins (principal); E11.9 Type 2 diabetes mellitus without complications; E78.5 Hyperlipidemia, unspecified; L40.50 Arthropathic psoriasis, unspecified

== ENCOUNTER 2020-07-07 11:16 | Emergency (ER) | payer OTHER, MEDICAID ==
[~2020-07-07] VITALS: Ht 165.1 cm; Wt 105.0 kg
[2020-07-07 13:08] LABS: BASO # 0.1 10^3/uL (0.0-0.2); BASO % 0.8 % (0.0-1.0); EOS # 0.1 10^3/uL (0.0-0.5); EOS % 1.5 % (0.0-3.0); HEMATOCRIT 45.6 % (36.0-47.0); HEMOGLOBIN 14.6 g/dl (12.0-15.5); MEAN CORPUSCULAR HEMOGLOBIN 26.8 pg (27.0-33.0); MEAN CORPUSCULAR VOLUME 83.8 fl (80.0-96.0); MONO # 0.6 10^3/uL (0.0-0.8); MONO % 5.9 % (2.0-8.0); NEUTROPHILS # 6.8 10^3/uL (1.5-8.5); NEUTROPHILS % 70.5 % (36.0-66.0); PLATELET COUNT, AUTOMATED 293 10^3/uL (150-450); RED BLOOD COUNT 5.44 10^6/uL (4.00-5.40); WHITE BLOOD COUNT 9.6 10^3/uL (4.0-10.0)
[2020-07-07 13:21] LABS: INR 0.98; PROTHROMBIN TIME 13.2 SECONDS (12.5-14.3)
[2020-07-07 13:25] LABS: D-DIMER QUANT 334.79 ng/ml (<500)
[2020-07-07 13:34] LABS: ALBUMIN 3.8 GM/DL (3.2-5.2); ALT/SGPT 28 U/L (12-78); BILIRUBIN,DIRECT 0.1 MG/DL (0.0-0.2); BILIRUBIN,TOTAL 0.5 MG/DL (0.2-1.0); CK-MB VALUE MASS < 1.0 NG/ML (<3.6); CPK CREATINE PHOSPHOKINASE 80 U/L (26-192); MB/CK RELATIVE INDEX 1.25 (< OR =4); NT-PRO BNP 162 PG/ML (<125); THYROXINE (T4) 10.4 UG/DL (4.5-12.0); TOTAL PROTEIN 6.9 GM/DL (6.4-8.2); TROPONIN I < 0.02 NG/ML (< 0.10)
[2020-07-07 13:52] LABS: RSV AMPLIFICATION NEGATIVE (NEGATIVE)
--- NOTE | 2020-07-07 14:17 | REP ---
INDICATION: DYSPNEA/COUGH. COMPARISON: 05/14/2018 a two view exam TECHNIQUE: Portable FINDINGS: The technique utilized in obtaining the radiograph has magnified the cardiac silhouette and accentuated the interstitial markings. The superior mediastinal structures are midline. The cardiac silhouette is unremarkable in size, shape, and position. The diaphragmatic surfaces of the lungs are regular, and the costophrenic angles are clear. The pulmonary coronado are clear. The imaged osseous structures are intact. IMPRESSION: There is no acute cardiopulmonary disease. <Electronically signed by Jeronimo Plummer > 07/07/20 [id number]
[2020-07-07 14:45] VITALS: BP 140/89
--- NOTE | 2020-07-08 07:38 | ECGEPIP ---
[facility] - ED Test Date: 2020-07-07 Pat Name: ESTHER MAE Department: Room: - Gender: Female [employer]: ER : 1960 Requested By: BRANDON Espitia PA-C Order Number: [id number] Reading MD: Erlin Navarro Measurements Intervals [place] Rate: 85 P: 39 TN: 178 QRS: 9 QRSD: 78 T: 7 QT: 384 QTc: 456 Interpretive Statements Normal sinus rhythm ST and T wave abnormality, consider ischemia Electronically Signed on 07-08-2020 7:38:30 EDT by Erlin Navarro
[2020-07-13] MEDS ORDERED: JARD1TAB PO (13:55)
[2020-07-13] MEDS ORDERED: OXYC10TA3 PO (13:55)
[2020-07-13] MEDS ORDERED: COSE1INJ SC (13:55)
[2020-07-13] MEDS ORDERED: BYDU2INJ7 SC (13:55)
[2020-07-13] MEDS ORDERED: BUPR1TAB53 PO (13:55)
[2020-07-13] MEDS ORDERED: METO25TA4 PO (13:55)
[2020-07-13] MEDS ORDERED: METO50TA7 PO (13:55)
== END 2020-07-07 14:47 | disposition home or self-care (01) ==
LOC: M ED 11:16
DX: R06.02 Shortness of breath (principal); R11.2 Nausea with vomiting, unspecified; R07.9 Chest pain, unspecified; E11.9 Type 2 diabetes mellitus without complications; I10 Essential (primary) hypertension; E78.5 Hyperlipidemia, unspecified; K21.9 Gastro-esophageal reflux disease without esophagitis; F17.200 Nicotine dependence, unspecified, uncomplicated; G47.30 Sleep apnea, unspecified; Z78.0 Asymptomatic menopausal state; Z79.4 Long term (current) use of insulin; Z96.652 Presence of left artificial knee joint

== ENCOUNTER → 2020-07-14 | Outpatient (CLI) | payer OTHER, MEDICAID ==
[~2020-07-14] MED LIST changes: +BUPR1TAB53 PO; +BYDU2INJ7 SC; +COSE1INJ SC; +JARD1TAB PO; +METO25TA4 PO; +METO50TA7 PO; +OXYC10TA3 PO
--- NOTE | 2020-07-14 09:05 | REP ---
INDICATION: NICOTINE DEPENDENCE COMPARISON: 03/23/2013 TECHNIQUE: Axial noncontrast images from the thoracic inlet to the upper abdomen using low-dose lung screening technique (LDCT). FINDINGS: The lung coronado demonstrate chronic age-related interstitial changes. No acute consolidation, significant nodule, or mass. No effusion. No pneumothorax. Tracheobronchial tree is patent. No cardiomegaly. IMPRESSION: Lung-RADS category 1. No suspicious nodule or mass lesion. Management recommendations include annual low-dose CT surveillance. <Electronically signed by Agusto Murillo > 07/14/20 [id number]
== END ==
LOC: M RAD 08:35
PROVIDERS: ATTEND Internal Medicine Pulmonary Disease
DX: Z12.2 Encounter for screening for malignant neoplasm of respiratory organs (principal); F17.218 Nicotine dependence, cigarettes, with other nicotine-induced disorders
CPT/HCPCS: 71271; G0463

== ENCOUNTER → 2020-07-15 | Outpatient (CLI) | payer OTHER, MEDICAID, MEDICARE | LOC: M LABSMTC 11:15 | PROVIDERS: ATTEND Anesthesiology | DX: Z01.812 Encounter for preprocedural laboratory examination (principal); Z20.822 Contact with and (suspected) exposure to COVID-19 ==

== ENCOUNTER 2020-07-20 07:41 | Day surgery (SDC) | payer OTHER, MEDICAID ==
[~2020-07-20] VITALS: Ht 165.1 cm; Wt 105.7 kg
[~2020-07-20 07:41] MED LIST changes: +NS 1,000 ML IV ONE
[2020-07-20] MEDS ORDERED: propofoL 200 MG/20 ML VIAL As Ordered ONE ×2 (08:40→09:11)
[2020-07-20] MEDS ORDERED: fentaNYL 100 MCG/2 ML INJECTION (J3010) As Ordered ONE (08:40)
[2020-07-20] MEDS ORDERED: LIDOCAINE 2% 100MG/5ML SDV (FOR ANES.) As Ordered ONE (08:40)
--- NOTE | 2020-07-20 09:44 | ROOR ---
Patient Name: Alice Resendiz Procedure Date: 07/20/2020 8:50 AM Date of : 1960 Age: 59 Room: [facility] Gender: Female Note Status: Finalized Procedure: Upper GI endoscopy Indications: Dyspepsia, Nausea with vomiting Providers: Rip Baldwin MD Referring MD: Fili Garcia DO Requesting Provider: Medicines: Monitored Anesthesia Care Complications: No immediate complications. Procedure: Pre-Anesthesia Assessment: - Prior to the procedure, a History and Physical was performed, and patient medications and allergies were reviewed. The patient is competent. The risks and benefits of the procedure and the sedation options and risks were discussed with the patient. All questions were answered and informed consent was obtained. Patient identification and proposed procedure were verified by the physician, the nurse and the anesthesiologist in the procedure room. Mental Status Examination: alert and oriented. Airway Examination: normal oropharyngeal airway and neck mobility. Respiratory Examination: clear to auscultation. CV Examination: normal. Prophylactic Antibiotics: The patient does not require prophylactic antibiotics. Prior Anticoagulants: The patient has taken no previous anticoagulant or antiplatelet agents. ASA Grade Assessment: II - A patient with mild systemic disease. After reviewing the risks and benefits, the patient was deemed in satisfactory condition to undergo the procedure. The anesthesia plan was to use monitored anesthesia care (MAC). Immediately prior to administration of medications, the patient was re-assessed for adequacy to receive sedatives. The heart rate, respiratory rate, oxygen saturations, blood pressure, adequacy of pulmonary ventilation, and response to care were monitored throughout the procedure. The physical status of the patient was re-assessed after the procedure. The Endoscope was introduced through the mouth, and advanced to the second part of duodenum. The upper GI endoscopy was accomplished without difficulty. The patient tolerated the procedure well. Findings: The examined esophagus was normal. The Z-line was regular and was found at the gastroesophageal junction. Patchy moderate inflammation characterized by erythema, friability and granularity was found in the gastric body and in the gastric antrum. Biopsies were taken with a cold forceps for Helicobacter pylori testing. Verification of patient identification for the specimen was done by the physician and nurse using the patient's name, date and medical record number. Estimated blood loss was minimal. The duodenal bulb and second portion of the duodenum were normal. Biopsies for histology were taken with a cold forceps for evaluation of celiac disease. Impression: - Normal esophagus. - Z-line regular, at the gastroesophageal junction. - Gastritis. Biopsied. - Normal duodenal bulb and second portion of the duodenum. Biopsied. Recommendation: - Patient has a contact number available for emergencies. The signs and symptoms of potential delayed complications were discussed with the patient. Return to normal activities tomorrow. Written discharge instructions were provided to the patient. - High fiber diet. - Continue present medications. - Await pathology results. - Follow an antireflux regimen. - Telephone GI clinic for pathology results in 2 weeks. - Return to primary care physician. Procedure Code(s): --- Professional --- 56462, Esophagogastroduodenoscopy, flexible, transoral; with biopsy, single or multiple Diagnosis Code(s): --- Professional --- K29.70, Gastritis, unspecified, without bleeding R10.13, Epigastric pain R11.2, Nausea with vomiting, unspecified CPT copyright 2019 [employer]. All rights reserved. The codes documented in this report are preliminary and upon agency trainer review may be revised to meet current compliance requirements. Rip Baldwin MD Rip Baldwin MD 07/20/2020 9:43:57 AM Electronically signed by Rip Baldwin MD Number of Addenda: 0 Note Initiated On: 07/20/2020 8:50 AM Estimated Blood Loss: Estimated blood loss was minimal.
--- NOTE | 2020-07-20 09:46 | ROOR ---
Patient Name: Alice Resendiz Procedure Date: 07/20/2020 8:51 AM Date of : 1960 Age: 59 Room: [facility] Gender: Female Note Status: Finalized Procedure: Colonoscopy Indications: Chronic diarrhea, Weight loss Providers: Rip Badlwin MD Referring MD: Fili Garcia DO Requesting Provider: Medicines: Monitored Anesthesia Care Complications: No immediate complications. Procedure: Pre-Anesthesia Assessment: - Prior to the procedure, a History and Physical was performed, and patient medications and allergies were reviewed. The patient is competent. The risks and benefits of the procedure and the sedation options and risks were discussed with the patient. All questions were answered and informed consent was obtained. Patient identification and proposed procedure were verified by the physician, the nurse and the anesthesiologist in the procedure room. Mental Status Examination: alert and oriented. Airway Examination: normal oropharyngeal airway and neck mobility. Respiratory Examination: clear to auscultation. CV Examination: normal. Prophylactic Antibiotics: The patient does not require prophylactic antibiotics. Prior Anticoagulants: The patient has taken no previous anticoagulant or antiplatelet agents. ASA Grade Assessment: III - A patient with severe systemic disease. After reviewing the risks and benefits, the patient was deemed in satisfactory condition to undergo the procedure. The anesthesia plan was to use monitored anesthesia care (MAC). Immediately prior to administration of medications, the patient was re-assessed for adequacy to receive sedatives. The heart rate, respiratory rate, oxygen saturations, blood pressure, adequacy of pulmonary ventilation, and response to care were monitored throughout the procedure. The physical status of the patient was re-assessed after the procedure. The Colonoscope was introduced through the anus and advanced to the cecum, identified by appendiceal orifice and ileocecal valve. The colonoscopy was performed without difficulty. The patient tolerated the procedure well. The quality of the bowel preparation was good. The terminal ileum, ileocecal valve, appendiceal orifice, and rectum were photographed. Scope insertion time was 2 minutes. Scope withdrawal time was 9 minutes. The total duration of the procedure was 12 minutes. Findings: The perianal and digital rectal examinations were normal. Normal mucosa was found in the entire colon. Biopsies for histology were taken with a cold forceps from the right colon, left colon and rectosigmoid colon for evaluation of microscopic colitis. Verification of patient identification for the specimen was done by the physician and nurse using the patient's name, date and medical record number. A 3 mm polyp was found in the rectum. The polyp was sessile. The polyp was removed with a cold biopsy forceps. Resection and retrieval were complete. Non-bleeding external and internal hemorrhoids were found during retroflexion. The hemorrhoids were medium-sized. Impression: - Normal mucosa in the entire examined colon. Biopsied. - One 3 mm polyp in the rectum, removed with a cold biopsy forceps. Resected and retrieved. - Non-bleeding external and internal hemorrhoids. Recommendation: - Patient has a contact number available for emergencies. The signs and symptoms of potential delayed complications were discussed with the patient. Return to normal activities tomorrow. Written discharge instructions were provided to the patient. - High fiber diet. - Continue present medications. - Await pathology results. - Repeat colonoscopy in 5 years for surveillance based on pathology results. - Telephone GI clinic for pathology results in 2 weeks. - Return to primary care physician. Procedure Code(s): --- Professional --- 12094, Colonoscopy, flexible; with biopsy, single or multiple Diagnosis Code(s): --- Professional --- K64.8, Other hemorrhoids K62.1, Rectal polyp K52.9, Noninfective gastroenteritis and colitis, unspecified R63.4, Abnormal weight loss CPT copyright 2019 [place] [employer]. All rights reserved. The codes documented in this report are preliminary and upon septic tank installer review may be revised to meet current compliance requirements. Rip Baldwin MD Rip Baldwin MD 07/20/2020 9:46:09 AM Electronically signed by Rip Baldwin MD Number of Addenda: 0 Note Initiated On: 07/20/2020 8:51 AM Estimated Blood Loss: Estimated blood loss was minimal.
[2020-07-20 10:00] VITALS: BP 167/70
== END 2020-07-20 10:03 | disposition home or self-care (01) ==
LOC: M OPP 07:41
PROVIDERS: ATTEND Internal Medicine Gastroenterology
DX: K62.1 Rectal polyp (principal); K64.8 Other hemorrhoids; K52.9 Noninfective gastroenteritis and colitis, unspecified; R63.4 Abnormal weight loss; K29.70 Gastritis, unspecified, without bleeding; R10.13 Epigastric pain; R11.2 Nausea with vomiting, unspecified; I25.2 Old myocardial infarction; E11.9 Type 2 diabetes mellitus without complications; J44.9 Chronic obstructive pulmonary disease, unspecified; Z79.84 Long term (current) use of oral hypoglycemic drugs; Z79.899 Other long term (current) drug therapy
CPT/HCPCS: 43239; 45380; 88305; J3010

== ENCOUNTER → 2020-08-06 | Outpatient (CLI) | payer OTHER, MEDICAID ==
[~2020-08-06] MED LIST changes: -NS 1,000 ML IV ONE
--- NOTE | 2020-08-07 02:25 | ECWPNPC ---
PATIENT NAME: ESTHER MAE : 1960 GENDER: FEMALE VISIT DATE: 08/06/2020 DISCHARGE DATE: 08/06/20 1143 VISIT LOCKED DATE TIME: PHYSICIAN: FREDERICK MILES PHYSICIAN PAGER NO: ACTIVE RESOURCE: FREDERICK MILES REASON FOR APPOINTMENT 1. 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 CHRONIC PAIN FOLLOW-UP. SHE RATES HER PAIN CURRENTLY AT AN 8 OUT OF 10 AND DESCRIBES IT CONTINUOUS, ACHING, AND STABBING. DOI: 05/16/2012. -. FALL RISK SCREENING: SCREENING : NO FALLS REPORTED IN THE LAST YEAR. PAIN SCREENING: PATIENT HAS A COMPLAINT OF ACUTE OR CHRONIC PAIN :YES INTENSITY OF PAIN (SCALE OF 1 TO 10):8 WHAT DOES YOUR PAIN FEEL LIKE:CONTINOUS, ACHING, STABBING, SORE NURSING NOTE: -. PAIN CENTER INTAKE QUESTIONS: DO YOU HAVE A HISTORY OF MRSA? :NO DO YOU TAKE A BLOOD THINNERS? :YES INDOMETHACIN, 81 MG. ASPIRIN DO YOU HAVE ANY BLEEDING DISORDERS? :NO ANY NEW NUMBNESS OR WEAKNESS IN YOUR LEGS OR ARMS? :YES BILATERAL LEG WEAKNESS ANY PACEMAKER,DEFIBRILLATOR, OR DORSAL COLUMN STIMULATOR? :NO DO YOU HAVE ANY RASHES OR OPEN SORES? :NO ARE YOU ALLERGIC TO IV DYE? :NO ARE YOU DIABETIC? :YES TYPE II ANY NEW PROBLEMS WITH YOUR MEDICATIONS? :NO HAVE YOU RECEIVED A VACCINE IN THE PAST 30 DAYS? :YES IF SO WHAT VACCINE AND WHEN? SECOND COVID VACCINATION 04/20/2020 DO YOU PLAN TO RECEIVE A VACCINE IN THE NEXT 21 DAYS? :NO DO YOU NEED ANY PRESCRIPTION? :NO DO YOU TAKE ANY IMMUNOSUPPRESSIVE MEDICATIONS? :NO DO YOU HAVE ANY KIDNEY OR LIVER DISEASE? :NO IS THERE A CHANCE YOU COULD BE ? :NO ARE YOU BREAST FEEDING? :NO CURRENT MEDICATIONS TAKING IPRATROPIUM-ALBUTEROL 0.5-2.5 (3) MG/3ML SOLUTION 3 ML NEEDED INHALATION EVERY 4 HRS TAKING PROAIR HFA 108 (90 BASE) MCG/ACT AEROSOL SOLUTION 2 PUFFS NEEDED INHALATION EVERY 6 HRS TAKING ASPIR-81 81 MG TABLET DELAYED RELEASE 1 TABLET ORALLY ONCE A DAY TAKING MISC. DEVICES - MISCELLANEOUS BP CUFF, CHECK ONCE A DAY, DX: I10. TAKING GLUCOMETER E11.9 CHECK ACHS TAKING BLOOD GLUCOSE TEST - STRIP E11.9 CHECK ACHS IN VITRO DIRECTED TAKING LANCETS - MISCELLANEOUS E11.9 CHECK ACHS DIRECTED TAKING CETIRIZINE HCL 10 MG TABLET 1 TABLET ORALLY ONCE A DAY TAKING MAY HAVE - - BI PAP TAKING BUPROPION HCL ER (SR) 150 MG TABLET EXTENDED RELEASE 12 HOUR 1 TABLET ORALLY TWICE A DAY TAKING METFORMIN HCL 850 MG TABLET 1 TABLET WITH A MEAL ORALLY BID TAKING METOPROLOL TARTRATE 25 MG TABLET 2 TABLET WITH FOOD IN AM PLUS 1 TABLET IN PM ORALLY DIRECTED TAKING DULOXETINE HCL 60 MG CAPSULE DELAYED RELEASE PARTICLES 1 CAPSULE ORALLY ONCE A DAY TAKING LYRICA 200 MG CAPSULE 1 CAPSULE ORALLY TID MDD=3 TAKING BLACK COHOSH 40 MG CAPSULE 1 CAP ORALLY DAILY TAKING VITAMIN D 25 MCG (1000 UT) TABLET 1 TABLET ORALLY DAILY TAKING OMEPRAZOLE 20 MG CAPSULE DELAYED RELEASE 1 CAPSULE 30 MINUTES BEFORE MORNING MEAL ORALLY DAILY TAKING ANORO ELLIPTA UMECLIDINIUM 62.5 MCG AND VILANTEROL 25 MCG INHALATION POWDER 1 INHALATION ORAL ONCE DAILY TAKING OZEMPIC (0.25 OR 0.5 MG/DOSE) 2 MG/1.5ML SOLUTION PEN-INJECTOR 0.5 MG 1 INJECTION SUBCUTANEOUS WEEKLY, NOTES: 0.5 MG WEEKLY TAKING ROPINIROLE HCL 0.5 MG TABLET 2 TAB ORALLY AT BEDTIME TAKING VITAMIN C IMMUNE HEALTH 500 MG TABLET CHEWABLE 1 TABLET ORALLY ONCE A DAY TAKING VITAMIN B-12 1000 MCG TABLET 1 TABLET ORALLY ONCE A DAY TAKING AMMONIUM LACTATE 5 % LOTION 1 APPLICATION EXTERNALLY TWICE A DAY TAKING OXYCODONE-ACETAMINOPHEN 10-325 MG TABLET 1 TABLET NEEDED ORALLY EVERY 6 HRS NEEDED FOR PAIN TAKING INDOMETHACIN 50 MG CAPSULE 1 CAPSULE WITH FOOD OR MILK ORALLY NEEDED FOR PAIN TWICE A DAY TAKING CICLOPIROX 8 % SOLUTION 1 APPLICATION EXTERNALLY ONCE A DAY TAKING SPIRONOLACTONE 25 MG TABLET TAKE ONE TABLET BY MOUTH EVERY DAY TAKING JARDIANCE 25 MG TABLET TAKE ONE TABLET BY MOUTH EVERY DAY NOT-TAKING ENBREL 50 MG/ML SOLUTION PREFILLED SYRINGE 1 ML SUBCUTANEOUS WEEKLY MEDICATION LIST REVIEWED AND RECONCILED WITH THE PATIENT PAST MEDICAL HISTORY DM, A1C GOAL 7% CHRONIC LUNG DISEASE, FOLLOWS WITH DR. WARREN GERD, HAS NEVER SEEN A GI DOCTOR, DENIES HAVING HAD ESOPHAGOGASTRODUODENOSCOPY. ARTHRITIS BACK PAIN/NECK PAIN, CHRONIC SHOULDER PAIN AND CHRONIC LEG PAIN FOR WHICH SHE IS ON PERCOCET HYPERLIPIDEMIA HYPERTENSION, DENIES HISTORY OF HEART FAILURE, S/P HEART CATH REPORTEDLY NEG 2006, HAS HISTORY OF "SILENT HEART ATTACK" SO FOLLOWS DR. SHETH WHO DID STRESS JULY 2017, SHE GETS RLS FIBROMYALGIA PSORIATIC ARTHRITIS- RHEUM- FIBRO PNEUMONIA OBESITY, LOST 100 POUNDS INTENTIONALLY WITHOUT WEIGHT LOSS SURGERY ANEMIA: UNCERTAIN CAUSE, DIAGNOSIS BY CARDIOLOGY, ON IRON OBSTRUCTIVE SLEEP APNEA, DR. WARREN, USES BIPAP EVERY NIGHT CORONARY ARTERY DISEASE-RACING HEART, SEE DR SHETH LUMBAR SPINE- BULGING/COMPRESSED DISCS DEPRESSION COVID VACCINE, PFIZER ALLERGIES SEASONAL: RED, ITCHY EYES, HEADACHE, NASAL CONGESTION - ALLERGY SURGICAL HISTORY L KNEE REPLACEMENT 2013 CHOLECYSTECTOMY LEFT SHOULDER REPAIR NOVASURE ABLATION CARDIAC CATHETERIZATION 06/2018 GROWTH REMOVAL FROM INSIDE OF NOSE 06/06/19 FAMILY HISTORY FATHER: , RHEUMATOID, DIAGNOSED WITH DIABETES, UNSPECIFIED CEREBRAL ARTERY OCCLUSION WITH CEREBRAL INFARCTION, HYPERTENSION, UNSPECIFIED HEART DISEASE MOTHER: , RHEUMATOID, HYPERTENSION, UNSPECIFIED HEART DISEASE, OTHER MALIGNANT NEOPLASM OF UNSPECIFIED SITE MATERNAL GRAND MOTHER: RHEUMATOID 2 SISTER(S) - HEALTHY. 1 SON(S) - HEALTHY. MOTHER: LUNG CA\\\\\\\\\\\\\\\\NOLDER SISTER()- CHF, HEART DISEASE\\\\\\\\\\\\\\\\N. SOCIAL HISTORY GENERAL: TOBACCO USE ARE YOU A:CURRENT SMOKER ARE YOU INTERESTED IN QUITTING?NOT READY TO QUIT PT CURRENTLY USING WELLBUTRIN TO HELP QUIT/ STATES SHE IS CUTTIING DOWN COUNSELED THE PATIENT ON SMOKING EFFECTS, EDUCATION [id number]/31/2021 HOW MANY CIGARETTES A DAY DO YOU SMOKE?5 OR LESS APPROX 4/DAY PT IS DISCOURAGED WITH THE MELISSA HOW SOON AFTER YOU WAKE UP DO YOU SMOKE YOUR FIRST CIGARETTE?6-30 MIN HOW OFTEN DO YOU SMOKE CIGARETTES?EVERY DAY PATIENT COUNSELED ON THE DANGERS OF TOBACCO USE AND URGED TO QUIT:08/06/2020 SMOKING CESSATION INFORMATION GIVEN05/27/2020 VAPORNO E-CIGARETTENO LATEX QUESTIONNAIRE LATEX ALLERGY : HAVE YOU EVER DEVELOPED ANY TYPE OF REACTION AFTER HANDLING LATEX PRODUCTS SUCH RUBBER GLOVES, CONDOMS, DIAPHRAGMS, BALLOONS, SOCKS, OR UNDERWEAR?NO LATEX ALLERGY : HAVE YOU EVER DEVELOPED ANY TYPE OF REACTION DURING OR AFTER DENTAL APPOINTMENT, VAGINAL/RECTAL EXAMINATION, SURGICAL PROCEDURE, OR ANY OTHER EXPOSURE?NO DATE ASKED : 05/18/2020 LATEX RISK : HAVE YOU EVER HAD ANY DIFFICULTY BREATHING OR HIVES AFTER EATING OR HANDLING ANY FRUITS, OR VEGETABLES; SUCH KIWI, BANANAS, STONE FRUITS, OR CHESTNUTSNO LATEX RISK : DO YOU HAVE A PREVIOUS PERSONAL HISTORY OF MORE THAN NINE SURGERIES, SPINA BIFIDA, OR REPEATED CATHERIZATIONS? NO LATEX RISK : ARE YOU FREQUENTLY EXPOSED TO LATEX PRODUCTS IN YOUR OCCUPATION?NO ALCOHOL USE: NO. BMI CARE GOAL FOLLOW-UP ABOVE NORMAL BMI FOLLOW-UPDIETARY MANAGEMENT EDUCATION, GUIDANCE, AND COUNSELING ALCOHOL SCREENING DID YOU HAVE A DRINK CONTAINING ALCOHOL IN THE PAST YEAR?NO POINTS0 INTERPRETATIONNEGATIVE RECREATIONAL DRUG USE DRUG USE?NO CAFFEINE CAFFEINE USE?YES HOW OFTEN AND HOW MUCH? 2 CUPS COFFEE PER DAY DAILY BASIS SEXUAL HX HAD SEX IN THE LAST 12 MONTHS (VAGINAL, ORAL, OR ANAL)?NO HAVE YOU EVER HAD AN STD?NO HIV / HEP-C SCREENING HIV TEST OFFERED TO PATIENT:YES DATE OFFERED:05/27/2020 TEST ACCEPTED:NO HEP-C TEST OFFERED TO PATIENT:NO REASON:PATIENT DECLINED BROCHURE PROVIDED TO PATIENTYES ORTHODOXY [id number] [employer] LANGUAGE LANGUAGES SPOKEN:UPPER SORBIAN EDUCATION LEVEL OF EDUCATION:HIGH SCHOOL LEARNING BARRIERS / SPECIAL NEEDS CHANGE FROM LAST VISIT?NO BARRIERS TO LEARNING?NO HEARING IMPAIRED?NO VISION IMPAIRED?YES READING GLASSES COGNITIVELY IMPAIRED?NO :CORRECTIVE LENSES READINESS TO LEARN?YES LEARNING PREFERENCES?NO LEARNING CAPABILITIES PRESENT?YES EMOTIONAL BARRIERS?NO SPECIAL DEVICES?NO PRINCIPAL CLERK NEEDED?NO DOMESTIC VIOLENCE DO YOU FEEL SAFE IN YOUR ENVIRONMENT?YES 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 EXERCISE: NO REGULAR EXERCISE. MARITAL STATUS: SINGLE. OTHERS AT HOME: NONE. - PFS REFERRAL NEEDED?NO CLERGY REFERRAL NEEDED?NO PUBLIC HEALTH REFERRAL NEEDED?NO HAS THE PATIENT BEEN EDUCATED REGARDING HIS/HER PLAN OF CARE?YES HAS THE PATIENT BEEN EDUCATED REGARDING PAIN, THE RISK FOR PAIN, THE IMPORTANCE OF EFFECTIVE PAIN MANAGEMENT, AND THE PAIN ASSESSMENT PROCESS?YES ADVANCE DIRECTIVE ADVANCE DIRECTIVE DISCUSSED WITH PATIENT:YES PATEINT STATES SHE HAS A HCP - SONIA BENNETT (SISTER) [phone], ALSO HAS A DNR HOSPITALIZATION/MAJOR DIAGNOSTIC PROCEDURE SURGICALY RELATED PNEUMONIA-RESP FAILURE ON BIPAP 12/28/15 INFLUENZA/COPD 05/08/18 CHEST PAIN - CARDIAC CATHETERIZATION 06/2018 REVIEW OF SYSTEMS CONSTITUTIONAL: ANY RECENT FEVER NO . CHILLS NO . WEIGHT CHANGE OF UNKNOWN REASONS NO . GASTROENTEROLOGY: NEW UNEXPLAINABLE CHANGES IN BOWEL CONTROL NO . CONSTIPATION NO . GENITOURINARY: ANY NEW CHANGE IN BLADDER CONTROL? NO . NEUROLOGY: NEW ONSET DIZZINESS OR NEUROLOGICAL CHANGES NOT MENTIONED NO . NEW NUMBNESS OR PAIN PATTERNS NOT MENTIONED AND PERTINENT TO TODAY'S VISIT NO . CARDIOLOGY: NEW CHEST PRESSURE NO . PATIENT DENIES NO . RESPIRATORY: UNEXPLAINABLE COUGH NO . NEW SHORTNESS OF BREATH NO . VITAL SIGNS WT 234.8 LBS, HT 66.75 IN, BMI 37.05 INDEX, BP 189/99 MM HG, HR 82 /MIN, RR 18 /MIN, TEMP 96.0 F, OXYGEN SAT % 96%, NA INITIALS AW 1123. EXAMINATION GENERAL EXAMINATION: GENERALNO ACUTE DISTRESS, WELL NOURISHED AND HYDRATED. PSYCHAPPROPRIATE MOOD AND AFFECT . LUNGS:CLEAR TO AUSCULTATION BILATERALLY, NO WHEEZES, RHONCHI, RALES. HEART:NO MURMURS, REGULAR RATE AND RHYTHM. 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 CHRONIC PAIN FOLLOW-UP. GIVEN PRESENTING SYMPTOMS RECOMMEND FOLLOW-UP IN 3 MONTHS. PATIENT HAS EXPRESSED UNDERSTANDING OF AND WAS IN AGREEMENT WITH TREATMENT PLAN. GIVEN TIME TO ASK QUESTIONS AND EXPRESS CONCERNS. PROCEDURES PN WORKMANS' COMP OPINION IN YOUR OPINION, WAS THE INCIDENT THAT THE PATIENT DESCRIBED THE COMPETENT MEDICAL CAUSE OF THIS INJURY/ILLNESS? YES ARE THE PATIENT'S COMPLAINTS CONSISTENT WITH HIS/HER HISTORY OF THE INJURY/ILLNESS? YES IS THE PATIENT'S HISTORY OF THE INJURY/ILLNESS CONSISTENT WITH YOUR OBJECTIVE FINDING? YES WHAT IS THE PERCENTAGE OF TEMPORARY IMPAIRMENT? TOTAL = 100% IS THE PATIENT WORKING? NO DOCTOR ON SITE: JOSE HAUSER MD PROCEDURE CODES FA211 ESTABILISHED PATIENT [facility] CHARGE DISPOSITION & COMMUNICATION FOLLOW UP 3 MONTHS (REASON: KNEE AND SHOULDER PAIN ) ELECTRONICALLY SIGNED BY SOHEILA MEDRANO ON 08/06/2020 AT 01:09 PM EDT DISCLAIMER : THIS IS A VISIT SUMMARY EXTRACTED FROM THE [employer] CHART. IT IS NOT A COPY OF THE [employer] PROGRESS NOTE. PRETTY
== END ==
LOC: M PAIN 11:30
PROVIDERS: ATTEND Family Medicine
DX: M25.512 Pain in left shoulder (principal); M25.562 Pain in left knee; E11.9 Type 2 diabetes mellitus without complications; K21.9 Gastro-esophageal reflux disease without esophagitis; E78.5 Hyperlipidemia, unspecified; I10 Essential (primary) hypertension; G25.81 Restless legs syndrome; M79.7 Fibromyalgia; L40.50 Arthropathic psoriasis, unspecified; E66.9 Obesity, unspecified; D64.9 Anemia, unspecified; G47.33 Obstructive sleep apnea (adult) (pediatric); M51.26 Other intervertebral disc displacement, lumbar region; F32.9 Major depressive disorder, single episode, unspecified; F17.210 Nicotine dependence, cigarettes, uncomplicated; Z68.37 Body mass index [BMI] 37.0-37.9, adult; Z79.82 Long term (current) use of aspirin; Z79.84 Long term (current) use of oral hypoglycemic drugs; Z79.891 Long term (current) use of opiate analgesic; Z79.899 Other long term (current) drug therapy; J30.2 Other seasonal allergic rhinitis

== ENCOUNTER → 2020-08-18 | Outpatient (CLI) | payer OTHER, MEDICAID ==
[~2020-08-18] MED LIST changes: +ETOD-173 PO; -ETOD400T PO
--- NOTE | 2020-08-20 04:49 | ECWPNPC ---
PATIENT NAME: ESTHER MAE : 1960 GENDER: FEMALE VISIT DATE: 08/18/2020 DISCHARGE DATE: 08/18/20 1015 VISIT LOCKED DATE TIME: PHYSICIAN: FREDERICK MILES PHYSICIAN PAGER NO: ACTIVE RESOURCE: FREDERICK MILSE REASON FOR APPOINTMENT 1. BACK PAIN HISTORY OF PRESENT ILLNESS PAIN SCREENING: PAIN CENTER INTAKE QUESTIONS: DO YOU HAVE A HISTORY OF MRSA? :NO DO YOU TAKE A BLOOD THINNERS? :NO DO YOU HAVE ANY BLEEDING DISORDERS? :NO ANY NEW NUMBNESS OR WEAKNESS IN YOUR LEGS OR ARMS? :NO ANY PACEMAKER,DEFIBRILLATOR, OR DORSAL COLUMN STIMULATOR? :NO DO YOU HAVE ANY RASHES OR OPEN SORES? :NO ARE YOU ALLERGIC TO IV DYE? :NO ARE YOU DIABETIC? :YES ANY NEW PROBLEMS WITH YOUR MEDICATIONS? :NO HAVE YOU RECEIVED A VACCINE IN THE PAST 30 DAYS? :NO DO YOU PLAN TO RECEIVE A VACCINE IN THE NEXT 21 DAYS? :NO DO YOU NEED ANY PRESCRIPTION? :NO DO YOU TAKE ANY IMMUNOSUPPRESSIVE MEDICATIONS? :YES NOT SURE OF NAME, WILL CALL US WITH IT DO YOU HAVE ANY KIDNEY OR LIVER DISEASE? :NO IS THERE A CHANCE YOU COULD BE ? :NO ARE YOU BREAST FEEDING? :NO GENERAL: HPI 60-YEAR-OLD FEMALE IN FOR CHRONIC PAIN FOLLOW-UP. PATIENT ADMITS TO INCREASED PAIN IN HER LOW BACK AND HIP AREA.. - -. FALL RISK SCREENING: SCREENING : NO FALLS REPORTED IN THE LAST YEAR , : NO FALLS REPORTED IN THE LAST YEAR. NURSING NOTE: STATES PAIN IS 9/10. PAIN IN LOCATED LOW BACK AND LEFT HIP. DESCRIBES IT CONTINUOUS, ACHING, SORE, SHOOTING, STABBING, TENDER. PAIN IS CONSTANT, CONTINUOUS AND WAKES HER AT NIGHT. PAIN IS INCREASED BY "ALMOST EVERTHING." PAIN MED DECREASED PAIN SOMEWHAT BUT NEVER TAKES THE PAIN AWAY. CURRENT MEDICATIONS TAKING IPRATROPIUM-ALBUTEROL 0.5-2.5 (3) MG/3ML SOLUTION 3 ML NEEDED INHALATION EVERY 4 HRS TAKING PROAIR HFA 108 (90 BASE) MCG/ACT AEROSOL SOLUTION 2 PUFFS NEEDED INHALATION EVERY 6 HRS TAKING ASPIR-81 81 MG TABLET DELAYED RELEASE 1 TABLET ORALLY ONCE A DAY TAKING MISC. DEVICES - MISCELLANEOUS BP CUFF, CHECK ONCE A DAY, DX: I10. TAKING GLUCOMETER E11.9 CHECK ACHS TAKING BLOOD GLUCOSE TEST - STRIP E11.9 CHECK ACHS IN VITRO DIRECTED TAKING LANCETS - MISCELLANEOUS E11.9 CHECK ACHS DIRECTED TAKING CETIRIZINE HCL 10 MG TABLET 1 TABLET ORALLY ONCE A DAY TAKING MAY HAVE - - BI PAP TAKING BUPROPION HCL ER (SR) 150 MG TABLET EXTENDED RELEASE 12 HOUR 1 TABLET ORALLY TWICE A DAY TAKING METFORMIN HCL 850 MG TABLET 1 TABLET WITH A MEAL ORALLY BID TAKING METOPROLOL TARTRATE 25 MG TABLET 2 TABLET WITH FOOD IN AM PLUS 1 TABLET IN PM ORALLY DIRECTED TAKING DULOXETINE HCL 60 MG CAPSULE DELAYED RELEASE PARTICLES 1 CAPSULE ORALLY ONCE A DAY TAKING LYRICA 200 MG CAPSULE 1 CAPSULE ORALLY TID MDD=3 TAKING BLACK COHOSH 40 MG CAPSULE 1 CAP ORALLY DAILY TAKING VITAMIN D 25 MCG (1000 UT) TABLET 1 TABLET ORALLY DAILY TAKING OMEPRAZOLE 20 MG CAPSULE DELAYED RELEASE 1 CAPSULE 30 MINUTES BEFORE MORNING MEAL ORALLY DAILY TAKING ANORO ELLIPTA UMECLIDINIUM 62.5 MCG AND VILANTEROL 25 MCG INHALATION POWDER 1 INHALATION ORAL ONCE DAILY TAKING ROPINIROLE HCL 0.5 MG TABLET 2 TAB ORALLY AT BEDTIME TAKING VITAMIN C IMMUNE HEALTH 500 MG TABLET CHEWABLE 1 TABLET ORALLY ONCE A DAY TAKING VITAMIN B-12 1000 MCG TABLET 1 TABLET ORALLY ONCE A DAY TAKING AMMONIUM LACTATE 5 % LOTION 1 APPLICATION EXTERNALLY TWICE A DAY TAKING CICLOPIROX 8 % SOLUTION 1 APPLICATION EXTERNALLY ONCE A DAY TAKING SPIRONOLACTONE 25 MG TABLET TAKE ONE TABLET BY MOUTH EVERY DAY TAKING JARDIANCE 25 MG TABLET TAKE ONE TABLET BY MOUTH EVERY DAY TAKING OXYCODONE-ACETAMINOPHEN 10-325 MG TABLET 1 TABLET NEEDED ORALLY EVERY 6 HRS NEEDED FOR PAIN TAKING INDOMETHACIN 50 MG CAPSULE 1 CAPSULE WITH FOOD OR MILK ORALLY NEEDED FOR PAIN TWICE A DAY TAKING OZEMPIC (0.25 OR 0.5 MG/DOSE) 2 MG/1.5ML SOLUTION PEN-INJECTOR DIRECTED SUBCUTANEOUS WEEKLY NOT-TAKING ENBREL 50 MG/ML SOLUTION PREFILLED SYRINGE 1 ML SUBCUTANEOUS WEEKLY MEDICATION LIST REVIEWED AND RECONCILED WITH THE PATIENT PAST MEDICAL HISTORY DM, A1C GOAL 7% CHRONIC LUNG DISEASE, FOLLOWS WITH DR. KELVIN FRITZ, HAS NEVER SEEN A GI DOCTOR, DENIES HAVING HAD ESOPHAGOGASTRODUODENOSCOPY. ARTHRITIS BACK PAIN/NECK PAIN, CHRONIC SHOULDER PAIN AND CHRONIC LEG PAIN FOR WHICH SHE IS ON PERCOCET HYPERLIPIDEMIA HYPERTENSION, DENIES HISTORY OF HEART FAILURE, S/P HEART CATH REPORTEDLY NEG 2006, HAS HISTORY OF "SILENT HEART ATTACK" SO FOLLOWS DR. SHETH WHO DID STRESS JULY 2017, SHE GETS RLS FIBROMYALGIA PSORIATIC ARTHRITIS- RHEUM- FIBRO PNEUMONIA OBESITY, LOST 100 POUNDS INTENTIONALLY WITHOUT WEIGHT LOSS SURGERY ANEMIA: UNCERTAIN CAUSE, DIAGNOSIS BY CARDIOLOGY, ON IRON OBSTRUCTIVE SLEEP APNEA, DR. WARREN, USES BIPAP EVERY NIGHT CORONARY ARTERY DISEASE-RACING HEART, SEE DR SHETH LUMBAR SPINE- BULGING/COMPRESSED DISCS DEPRESSION COVID VACCINE, PFIZER ALLERGIES SEASONAL: RED, ITCHY EYES, HEADACHE, NASAL CONGESTION - ALLERGY SURGICAL HISTORY L KNEE REPLACEMENT 2013 CHOLECYSTECTOMY LEFT SHOULDER REPAIR NOVASURE ABLATION CARDIAC CATHETERIZATION 06/2018 GROWTH REMOVAL FROM INSIDE OF NOSE 06/06/19 FAMILY HISTORY FATHER: , RHEUMATOID, DIAGNOSED WITH UNSPECIFIED CEREBRAL ARTERY OCCLUSION WITH CEREBRAL INFARCTION, UNSPECIFIED HEART DISEASE, DIABETES, HYPERTENSION MOTHER: , RHEUMATOID, HYPERTENSION, UNSPECIFIED HEART DISEASE, OTHER MALIGNANT NEOPLASM OF UNSPECIFIED SITE MATERNAL GRAND MOTHER: RHEUMATOID 2 SISTER(S) - HEALTHY. 1 SON(S) - HEALTHY. MOTHER: LUNG CA\\\\\\\\\\\\\\\\NOLDER SISTER()- CHF, HEART DISEASE\\\\\\\\\\\\\\\\N. SOCIAL HISTORY GENERAL: TOBACCO USE ARE YOU A:CURRENT SMOKER ARE YOU INTERESTED IN QUITTING?NOT READY TO QUIT PT CURRENTLY USING WELLBUTRIN TO HELP QUIT/ STATES SHE IS CUTTIING DOWN COUNSELED THE PATIENT ON SMOKING EFFECTS, EDUCATION [id number]/31/2021 HOW MANY CIGARETTES A DAY DO YOU SMOKE?5 OR LESS APPROX 4/DAY PT IS DISCOURAGED WITH THE MELISSA HOW SOON AFTER YOU WAKE UP DO YOU SMOKE YOUR FIRST CIGARETTE?6-30 MIN HOW OFTEN DO YOU SMOKE CIGARETTES?EVERY DAY PATIENT COUNSELED ON THE DANGERS OF TOBACCO USE AND URGED TO QUIT:08/18/2020 SMOKING CESSATION INFORMATION GIVEN05/27/2020 VAPORNO E-CIGARETTENO LATEX QUESTIONNAIRE LATEX ALLERGY : HAVE YOU EVER DEVELOPED ANY TYPE OF REACTION AFTER HANDLING LATEX PRODUCTS SUCH RUBBER GLOVES, CONDOMS, DIAPHRAGMS, BALLOONS, SOCKS, OR UNDERWEAR?NO LATEX ALLERGY : HAVE YOU EVER DEVELOPED ANY TYPE OF REACTION DURING OR AFTER DENTAL APPOINTMENT, VAGINAL/RECTAL EXAMINATION, SURGICAL PROCEDURE, OR ANY OTHER EXPOSURE?NO DATE ASKED : 05/18/2020 LATEX RISK : HAVE YOU EVER HAD ANY DIFFICULTY BREATHING OR HIVES AFTER EATING OR HANDLING ANY FRUITS, OR VEGETABLES; SUCH KIWI, BANANAS, STONE FRUITS, OR CHESTNUTSNO LATEX RISK : DO YOU HAVE A PREVIOUS PERSONAL HISTORY OF MORE THAN NINE SURGERIES, SPINA BIFIDA, OR REPEATED CATHERIZATIONS? NO LATEX RISK : ARE YOU FREQUENTLY EXPOSED TO LATEX PRODUCTS IN YOUR OCCUPATION?NO ALCOHOL USE: NO. BMI CARE GOAL FOLLOW-UP ABOVE NORMAL BMI FOLLOW-UPDIETARY MANAGEMENT EDUCATION, GUIDANCE, AND COUNSELING ALCOHOL SCREENING DID YOU HAVE A DRINK CONTAINING ALCOHOL IN THE PAST YEAR?NO POINTS0 INTERPRETATIONNEGATIVE RECREATIONAL DRUG USE DRUG USE?NO CAFFEINE CAFFEINE USE?YES HOW OFTEN AND HOW MUCH? 2 CUPS COFFEE PER DAY DAILY BASIS SEXUAL HX HAD SEX IN THE LAST 12 MONTHS (VAGINAL, ORAL, OR ANAL)?NO HAVE YOU EVER HAD AN STD?NO HIV / HEP-C SCREENING HIV TEST OFFERED TO PATIENT:YES DATE OFFERED:05/27/2020 TEST ACCEPTED:NO HEP-C TEST OFFERED TO PATIENT:NO REASON:PATIENT DECLINED BROCHURE PROVIDED TO PATIENTYES MANDAEISM [id number] SIKHISM LANGUAGE LANGUAGES SPOKEN:FRISIAN EDUCATION LEVEL OF EDUCATION:HIGH SCHOOL LEARNING BARRIERS / SPECIAL NEEDS CHANGE FROM LAST VISIT?NO BARRIERS TO LEARNING?NO HEARING IMPAIRED?NO VISION IMPAIRED?YES READING GLASSES :CORRECTIVE LENSES COGNITIVELY IMPAIRED?NO READINESS TO LEARN?YES LEARNING PREFERENCES?NO LEARNING CAPABILITIES PRESENT?YES EMOTIONAL BARRIERS?NO SPECIAL DEVICES?NO MANAGER AUTO NEEDED?NO DOMESTIC VIOLENCE DO YOU FEEL SAFE IN YOUR ENVIRONMENT?YES 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 EXERCISE: NO REGULAR EXERCISE. MARITAL STATUS: SINGLE. OTHERS AT HOME: NONE. - PFS REFERRAL NEEDED?NO CLERGY REFERRAL NEEDED?NO PUBLIC HEALTH REFERRAL NEEDED?NO HAS THE PATIENT BEEN EDUCATED REGARDING HIS/HER PLAN OF CARE?YES HAS THE PATIENT BEEN EDUCATED REGARDING PAIN, THE RISK FOR PAIN, THE IMPORTANCE OF EFFECTIVE PAIN MANAGEMENT, AND THE PAIN ASSESSMENT PROCESS?YES ADVANCE DIRECTIVE ADVANCE DIRECTIVE DISCUSSED WITH PATIENT:YES PATEINT STATES SHE HAS A HCP - SONIA BENNETT (SISTER) [phone], ALSO HAS A DNR HOSPITALIZATION/MAJOR DIAGNOSTIC PROCEDURE SURGICALY RELATED PNEUMONIA-RESP FAILURE ON BIPAP 12/28/15 INFLUENZA/COPD 05/08/18 CHEST PAIN - CARDIAC CATHETERIZATION 06/2018 REVIEW OF SYSTEMS CONSTITUTIONAL: ANY RECENT FEVER NO . CHILLS NO . WEIGHT CHANGE OF UNKNOWN REASONS NO . GASTROENTEROLOGY: NEW UNEXPLAINABLE CHANGES IN BOWEL CONTROL NO . CONSTIPATION NO . GENITOURINARY: ANY NEW CHANGE IN BLADDER CONTROL? NO . NEUROLOGY: NEW ONSET DIZZINESS OR NEUROLOGICAL CHANGES NOT MENTIONED NO . NEW NUMBNESS OR PAIN PATTERNS NOT MENTIONED AND PERTINENT TO TODAY'S VISIT NO . CARDIOLOGY: NEW CHEST PRESSURE NO . PATIENT DENIES NO . RESPIRATORY: UNEXPLAINABLE COUGH NO . NEW SHORTNESS OF BREATH NO . VITAL SIGNS WT 235.0 LBS, HT 66.75 IN, BMI 37.08 INDEX, BP 195/88 MM HG, REPEAT BP 164/90MANUAL, HR 78 /MIN, RR 18 /MIN, TEMP 98.1 F, OXYGEN SAT % 96%, SAFE IN ENV? (Y/N) Y, NA INITIALS AW 0927, REVIEWED BY: Omkar BOONE RN08/18/20 PROVIDER AWARE OF ELEVATED B/P. Omkar BOONE RN. EXAMINATION GENERAL EXAMINATION: GENERALNO ACUTE DISTRESS, WELL NOURISHED AND HYDRATED. PSYCHAPPROPRIATE MOOD AND AFFECT . LUNGS:CLEAR TO AUSCULTATION BILATERALLY, NO WHEEZES, RHONCHI, RALES. HEART:NO MURMURS, REGULAR RATE AND RHYTHM. ASSESSMENTS INTERVERTEBRAL DISC DISORDERS WITH RADICULOPATHY, LUMBAR REGION - M51.16 (PRIMARY), RISK: (NULL) CHRONIC PRESCRIPTION OPIATE USE - Z79.891 TREATMENT INTERVERTEBRAL DISC DISORDERS WITH RADICULOPATHY, LUMBAR REGION [facility] MRI SPINE, L.S. WITHOUT [id number],NICOLE 08/18/2020 11:05:04 AM > MRI LUMBAR SPINE W/O CONTRAST HAS BEEN APPROVED. AUTH # [id number] AND EXP 09/17/20 NOTES: 60-YEAR-OLD FEMALE IN FOR CHRONIC PAIN FOLLOW-UP. GIVEN INCREASED PAIN RECOMMEND GETTING AN MRI OF THE LUMBAR SPINE WITH FOLLOW-UP POST IMAGING TO DISCUSS POTENTIAL PROCEDURES. WILL ORDER IN-HOME PHYSICAL THERAPY PATIENT STATES THAT THIS WAS BENEFICIAL TO HER PREVIOUSLY. PATIENT HAS EXPRESSED UNDERSTANDING OF AND WAS IN AGREEMENT WITH TREATMENT PLAN. GIVEN TIME ASKED QUESTIONS AND EXPRESS CONCERNS. [employer]STOP REGISTRY REVIEWED AND DEMONSTRATES COMPLLIANCE. (REF #[id number] ) BRINGS IN MEDICATIONS WHICH IS APPROPRIATE FOR WHAT WAS DISPENSED. RECENT URINE TOXICOLOGY REVIEWED. NO UNAUTHORIZED MEDICATIONS. NO ILLICIT SUBSTANCES AND PRESCRIBED MEDICATIONS WERE PRESENT. LABS LAB: URINE TEST GROUP ASHLEY BOONE 08/18/2020 10:06:50 AM > OXCYCODONE/ACETAMIN 08/18/20 0300 PROCEDURE CODES FA211 ESTABILISHED PATIENT [facility] FACILITY CHARGE DISPOSITION & COMMUNICATION FOLLOW UP POST IMAGING (REASON: MRI LUMBAR SPINE WITHOUT CONTRAST ) ELECTRONICALLY SIGNED BY SOHEILA MEDRANO ON 08/19/2020 AT 09:03 AM EDT DISCLAIMER : THIS IS A VISIT SUMMARY EXTRACTED FROM THE [employer] CHART. IT IS NOT A COPY OF THE [employer] PROGRESS NOTE. PRETTY
== END ==
LOC: M PAIN 09:30
PROVIDERS: ATTEND Family Medicine
DX: M51.16 Intervertebral disc disorders with radiculopathy, lumbar region (principal); E11.9 Type 2 diabetes mellitus without complications; K21.9 Gastro-esophageal reflux disease without esophagitis; E78.5 Hyperlipidemia, unspecified; I10 Essential (primary) hypertension; G25.81 Restless legs syndrome; M79.7 Fibromyalgia; L40.50 Arthropathic psoriasis, unspecified; D64.9 Anemia, unspecified; G47.33 Obstructive sleep apnea (adult) (pediatric); J30.2 Other seasonal allergic rhinitis; I25.10 Atherosclerotic heart disease of native coronary artery without angina pectoris; F32.9 Major depressive disorder, single episode, unspecified; F17.210 Nicotine dependence, cigarettes, uncomplicated; E66.9 Obesity, unspecified; Z68.37 Body mass index [BMI] 37.0-37.9, adult; Z79.891 Long term (current) use of opiate analgesic; Z79.82 Long term (current) use of aspirin; Z79.84 Long term (current) use of oral hypoglycemic drugs; Z79.899 Other long term (current) drug therapy

== ENCOUNTER → 2020-08-27 | Outpatient (CLI) | payer OTHER, MEDICAID ==
--- NOTE | 2020-08-27 16:44 | REP ---
INDICATION: UNSPECIFIED INJURY OF LEFT HIP, INITIAL ENCOUNTER COMPARISON: None. TECHNIQUE: Frontal view of the pelvis with neutral and frog lateral views of the right and left hip. FINDINGS: Osseous structures appear intact with generalized age-related changes noted. There is no evidence for acute fracture or dislocation. Surrounding soft tissues are unremarkable. IMPRESSION: Normal age-appropriate pelvis and bilateral hip series. No acute fracture or dislocation. <Electronically signed by Agusto Murillo > 08/27/20 [id number]
== END ==
LOC: M RAD 16:12
PROVIDERS: ATTEND Nurse Practitioner Family
DX: S79.912A Unspecified injury of left hip, initial encounter (principal); X58.XXXA Exposure to other specified factors, initial encounter; Y92.9 Unspecified place or not applicable; Y99.9 Unspecified external cause status
CPT/HCPCS: 73502; G0463

== ENCOUNTER → 2020-09-29 | Outpatient (CLI) | payer OTHER, MEDICAID ==
[~2020-09-29] MED LIST changes: +BACTDSTA
--- NOTE | 2020-09-29 10:05 | REPVR ---
PROCEDURE INFORMATION: Exam: MR Lumbar Spine Without Contrast Exam date and time: 09/29/2020 7:44 AM Age: 60 years old Clinical indication: Low back pain; Additional info: Disc disorders w/ radiculopathy lumbar region TECHNIQUE: Imaging protocol: Multiplanar magnetic resonance images of the lumbar spine without intravenous contrast. COMPARISON: XA FLUORO GUIDE SPINE INJECTION 11/22/2018 2:01 PM FINDINGS: Vertebrae: Mild dextroscoliosis. Otherwise,The lumbar vertebral bodies are normal in height,signal intensity and alignment.No acute fracture or dislocation is seen. Spinal epidural space: There is no evidence of epidural masses or hemorrhage. Spinal cord: The conus medullaris is normal. L1-L2: Markedly reduced in height and T2 signal indicating degeneration. Moderate degenerative endplate changes. Moderate diffuse posterior herniation.There is moderate spinal canal stenosis, with an AP canal dimension of 8 mm. There is compression on the thecal sac and crowding of the cauda equina nerve roots at this level.There is moderate bilateral foraminal stenosis. L2-L3: Moderately reduced in height and T2 signal indicating degeneration. Moderate degenerative endplate changes. Large diffuse posterior herniation. Moderate facet arthropathy.There is severe spinal canal stenosis, with an AP canal dimension of 6 mm. There is compression on the thecal sac and crowding of the cauda equina nerve roots at this level.There is severe bilateral foraminal stenosis. L3-L4: There is a mild diffuse posterior bulge causing mild effacement of the thecal sac.The facet joints demonstrate mild degenerative hypertrophy and sclerosis.There is no evidence of spinal canal narrowing. There is mild bilateral foraminal stenosis. L4-L5: There is a mild diffuse posterior bulge causing mild effacement of the thecal sac.The facet joints demonstrate mild degenerative hypertrophy and sclerosis.There is no evidence of spinal canal narrowing. There is mild bilateral foraminal stenosis. L5-S1: Markedly reduced in height and T2 signal indicating degeneration. Moderate diffuse posterior herniation. Moderate facet arthropathy.There is thickening of the ligamentum flavum.There is moderate spinal canal stenosis, with an AP canal dimension of 8 mm. There is severe bilateral foraminal stenosis. There is compression on the exiting nerve root. Soft tissues: The prevertebral soft tissues appear normal. IMPRESSION: MRI of the lumbar spine reveals multilevel degenerative spondylitic changes and degenerative disc disease as described above. Electronically signed by: Ken Matias On 09/29/2020 10:05:29 AM
== END ==
LOC: M PLARAD 08-20 11:12 → M RAD 09-18 12:22
PROVIDERS: ATTEND Family Medicine
DX: M51.16 Intervertebral disc disorders with radiculopathy, lumbar region (principal); R30.0 Dysuria

== ENCOUNTER → 2020-09-30 | Outpatient (REF) | payer OTHER, MEDICAID | LOC: M SFHCLUC 19:06 | PROVIDERS: ATTEND Nurse Practitioner Family | DX: R30.0 Dysuria (principal); R81 Glycosuria | CPT/HCPCS: 81002; 82948; 87088; 87186; G0463 ==

== ENCOUNTER → 2020-10-02 | Outpatient (CLI) | payer OTHER, MEDICAID ==
[~2020-10-02] MED LIST changes: -BACTDSTA
--- NOTE | 2020-10-02 23:16 | ECWPNPC ---
PATIENT NAME: ESTHER MAE : 1960 GENDER: FEMALE VISIT DATE: 10/02/2020 DISCHARGE DATE: 10/02/20 1020 VISIT LOCKED DATE TIME: PHYSICIAN: FREDERICK MILES PHYSICIAN PAGER NO: ACTIVE RESOURCE: FREDERICK MILES REASON FOR APPOINTMENT 1. REVIEW MRI HISTORY OF PRESENT ILLNESS DEPRESSION SCREENING: PHQ-9 LITTLE INTEREST OR PLEASURE IN DOING THINGSSEVERAL DAYS FEELING DOWN, DEPRESSED, OR HOPELESSSEVERAL DAYS TROUBLE FALLING OR STAYING ASLEEP, OR SLEEPING TOO MUCHNOT AT ALL FEELING TIRED OR HAVING LITTLE ENERGYSEVERAL DAYS POOR APPETITE OR OVEREATING NEARLY EVERY DAY FEELING BAD ABOUT YOURSELF-OR THAT YOU ARE A FAILURE OR HAVE LET YOURSELF OR YOUR FAMILY DOWN SEVERAL DAYS TROUBLE CONCENTRATING ON THINGS, SUCH READING THE NEWSPAPER OR WATCHING TELEVISION NOT AT ALL MOVING OR SPEAKING SO SLOWLY THAT OTHER PEOPLE COULD HAVE NOTICED. OR THE OPPOSITE- BEING SO FIDGETY OR RESTLESS THAT YOU HAVE BEEN MOVING AROUND A LOT MORE THAN USUALNOT AT ALL THOUGHTS THAT YOU WOULD BE BETTER OFF , OR OF HURTING YOURSELF IN SOME WAY?NOT AT ALL TOTAL SCORE:7 INTERPRETATIONMILD DEPRESSION PHQ-2 (2015 EDITION) LITTLE INTEREST OR PLEASURE IN DOING THINGS?SEVERAL DAYS FEELING DOWN, DEPRESSED, OR HOPELESS?SEVERAL DAYS TOTAL SCORE2 GENERAL: HPI 60-YEAR-OLD FEMALE IN FOR CHRONIC PAIN FOLLOW-UP. SHE RATES HER PAIN CURRENTLY AT A 10 OUT OF 10 AND DESCRIBES IT CONTINUOUS, STABBING, THROBBING. SHE FURTHER STATES THE PAIN SHOOTS DOWN HER LEFT LEG. PATIENT FEELS HER MEDICATIONS ARE HELPFUL AND DENIES MED SIDE EFFECTS AT THIS TIME. PATIENT HAD AN MRI RECENTLY WHICH WILL BE REVIEWED WITH PATIENT TODAY.. -. FALL RISK SCREENING: SCREENING : NO FALLS REPORTED IN THE LAST YEAR. PAIN SCREENING: PATIENT HAS A COMPLAINT OF ACUTE OR CHRONIC PAIN :YES LOCATION OF PAIN:LOW BACK, LEFT HIP DOWN LEFT LEG INTENSITY OF PAIN (SCALE OF 1 TO 10):10 WHAT DOES YOUR PAIN FEEL LIKE:CONTINOUS, STABBING, THROBBING DURATION:CONTINOUS, CONSTANT, STEADY PAIN IS INCREASED BY:OTHERS WALKING PAIN IS DECREASED BY:USE OF PAIN MEDICATIONS LYING DOWN NURSING NOTE: -. PAIN CENTER INTAKE QUESTIONS: DO YOU HAVE A HISTORY OF MRSA? :NO DO YOU TAKE A BLOOD THINNERS? :NO DO YOU HAVE ANY BLEEDING DISORDERS? :NO ANY NEW NUMBNESS OR WEAKNESS IN YOUR LEGS OR ARMS? :NO TINGLING DOWN LEFT LEG ANY PACEMAKER,DEFIBRILLATOR, OR DORSAL COLUMN STIMULATOR? :NO DO YOU HAVE ANY RASHES OR OPEN SORES? :NO ARE YOU ALLERGIC TO IV DYE? :NO ARE YOU DIABETIC? :YES ANY NEW PROBLEMS WITH YOUR MEDICATIONS? :NO HAVE YOU RECEIVED A VACCINE IN THE PAST 30 DAYS? :NO DO YOU PLAN TO RECEIVE A VACCINE IN THE NEXT 21 DAYS? :NO DO YOU NEED ANY PRESCRIPTION? :YES LYRICA, OXYCODONE, INDOMETHACIN DO YOU TAKE ANY IMMUNOSUPPRESSIVE MEDICATIONS? :YES DO YOU HAVE ANY KIDNEY OR LIVER DISEASE? :NO IS THERE A CHANCE YOU COULD BE ? :NO ARE YOU BREAST FEEDING? :NO CURRENT MEDICATIONS TAKING LYRICA 200 MG CAPSULE 1 CAPSULE ORALLY TID MDD=3 TAKING IPRATROPIUM-ALBUTEROL 0.5-2.5 (3) MG/3ML SOLUTION 3 ML NEEDED INHALATION EVERY 4 HRS TAKING PROAIR HFA 108 (90 BASE) MCG/ACT AEROSOL SOLUTION 2 PUFFS NEEDED INHALATION EVERY 6 HRS TAKING ASPIR-81 81 MG TABLET DELAYED RELEASE 1 TABLET ORALLY ONCE A DAY TAKING MISC. DEVICES - MISCELLANEOUS BP CUFF, CHECK ONCE A DAY, DX: I10. TAKING GLUCOMETER E11.9 CHECK ACHS TAKING BLOOD GLUCOSE TEST - STRIP E11.9 CHECK ACHS IN VITRO DIRECTED TAKING LANCETS - MISCELLANEOUS E11.9 CHECK ACHS DIRECTED TAKING CETIRIZINE HCL 10 MG TABLET 1 TABLET ORALLY ONCE A DAY TAKING MAY HAVE - - BI PAP TAKING BUPROPION HCL ER (SR) 150 MG TABLET EXTENDED RELEASE 12 HOUR 1 TABLET ORALLY TWICE A DAY TAKING METOPROLOL TARTRATE 25 MG TABLET 2 TABLET WITH FOOD IN AM PLUS 1 TABLET IN PM ORALLY DIRECTED TAKING DULOXETINE HCL 60 MG CAPSULE DELAYED RELEASE PARTICLES 1 CAPSULE ORALLY ONCE A DAY TAKING BLACK COHOSH 40 MG CAPSULE 1 CAP ORALLY DAILY TAKING VITAMIN D 25 MCG (1000 UT) TABLET 1 TABLET ORALLY DAILY TAKING OMEPRAZOLE 20 MG CAPSULE DELAYED RELEASE 1 CAPSULE 30 MINUTES BEFORE MORNING MEAL ORALLY DAILY TAKING ANORO ELLIPTA UMECLIDINIUM 62.5 MCG AND VILANTEROL 25 MCG INHALATION POWDER 1 INHALATION ORAL ONCE DAILY TAKING VITAMIN C IMMUNE HEALTH 500 MG TABLET CHEWABLE 1 TABLET ORALLY ONCE A DAY TAKING VITAMIN B-12 1000 MCG TABLET 1 TABLET ORALLY ONCE A DAY TAKING AMMONIUM LACTATE 5 % LOTION 1 APPLICATION EXTERNALLY TWICE A DAY TAKING CICLOPIROX 8 % SOLUTION 1 APPLICATION EXTERNALLY ONCE A DAY TAKING SPIRONOLACTONE 25 MG TABLET TAKE ONE TABLET BY MOUTH EVERY DAY TAKING JARDIANCE 25 MG TABLET TAKE ONE TABLET BY MOUTH EVERY DAY TAKING INDOMETHACIN 50 MG CAPSULE 1 CAPSULE WITH FOOD OR MILK ORALLY NEEDED FOR PAIN TWICE A DAY TAKING OZEMPIC (0.25 OR 0.5 MG/DOSE) 2 MG/1.5ML SOLUTION PEN-INJECTOR DIRECTED SUBCUTANEOUS 0.5 MG WEEKLY TAKING COSENTYX (300 MG DOSE) 150 MG/ML SOLUTION PREFILLED SYRINGE DIRECTED SUBCUTANEOUS EVERY 4 WEEKS TAKING LIDOCAINE 4 % CREAM 1 APPLICATION NEEDED TO HIP EXTERNALLY TWICE A DAY TAKING OXYCODONE-ACETAMINOPHEN 10-325 MG TABLET 1 TABLET NEEDED ORALLY EVERY 6 HRS NEEDED FOR PAIN TAKING METFORMIN HCL 850 MG TABLET 1 TABLET WITH A MEAL ORALLY BID TAKING LOPERAMIDE HCL 2 MG CAPSULE 1 CAPSULE NEEDED ORALLY THREE TIMES A DAY, NOTES: 2 MG 45 MIN PRIOR TO MEALS TAKING ROPINIROLE HCL 0.5 MG TABLET DIRECTED ORALLY 2 TABLETS AT BEDTIME AND 1 TABLET EARLY AFTERNOON TAKING BACTRIM DS 800-160 MG TABLET 1 TABLET ORALLY TWICE A DAY NOT-TAKING ENBREL 50 MG/ML SOLUTION PREFILLED SYRINGE 1 ML SUBCUTANEOUS WEEKLY MEDICATION LIST REVIEWED AND RECONCILED WITH THE PATIENT PAST MEDICAL HISTORY DM, A1C GOAL 7% CHRONIC LUNG DISEASE, FOLLOWS WITH DR. WARREN GERD, HAS NEVER SEEN A GI DOCTOR, DENIES HAVING HAD ESOPHAGOGASTRODUODENOSCOPY. ARTHRITIS BACK PAIN/NECK PAIN, CHRONIC SHOULDER PAIN AND CHRONIC LEG PAIN FOR WHICH SHE IS ON PERCOCET HYPERLIPIDEMIA HYPERTENSION, DENIES HISTORY OF HEART FAILURE, S/P HEART CATH REPORTEDLY NEG 2006, HAS HISTORY OF "SILENT HEART ATTACK" SO FOLLOWS DR. SHETH WHO DID STRESS JULY 2017, SHE GETS RLS FIBROMYALGIA PSORIATIC ARTHRITIS- RHEUM- FIBRO PNEUMONIA OBESITY, LOST 100 POUNDS INTENTIONALLY WITHOUT WEIGHT LOSS SURGERY ANEMIA: UNCERTAIN CAUSE, DIAGNOSIS BY CARDIOLOGY, ON IRON OBSTRUCTIVE SLEEP APNEA, DR. WARREN, USES BIPAP EVERY NIGHT CORONARY ARTERY DISEASE-RACING HEART, SEE DR SHETH LUMBAR SPINE- BULGING/COMPRESSED DISCS DEPRESSION COVID VACCINE, PFIZER ALLERGIES SEASONAL: RED, ITCHY EYES, HEADACHE, NASAL CONGESTION - ALLERGY SOCIAL HISTORY GENERAL: TOBACCO USE ARE YOU A:CURRENT SMOKER ARE YOU INTERESTED IN QUITTING?NOT READY TO QUIT PT CURRENTLY USING WELLBUTRIN TO HELP QUIT/ STATES SHE IS CUTTIING DOWN COUNSELED THE PATIENT ON SMOKING EFFECTS, EDUCATION [id number]/31/2021 HOW MANY CIGARETTES A DAY DO YOU SMOKE?5 OR LESS APPROX 4/DAY PT IS DISCOURAGED WITH THE MELISSA HOW SOON AFTER YOU WAKE UP DO YOU SMOKE YOUR FIRST CIGARETTE?6-30 MIN HOW OFTEN DO YOU SMOKE CIGARETTES?EVERY DAY PATIENT COUNSELED ON THE DANGERS OF TOBACCO USE AND URGED TO QUIT:08/18/2020 SMOKING CESSATION INFORMATION GIVEN05/27/2020 VAPORNO E-CIGARETTENO LATEX QUESTIONNAIRE LATEX ALLERGY : HAVE YOU EVER DEVELOPED ANY TYPE OF REACTION AFTER HANDLING LATEX PRODUCTS SUCH RUBBER GLOVES, CONDOMS, DIAPHRAGMS, BALLOONS, SOCKS, OR UNDERWEAR?NO LATEX ALLERGY : HAVE YOU EVER DEVELOPED ANY TYPE OF REACTION DURING OR AFTER DENTAL APPOINTMENT, VAGINAL/RECTAL EXAMINATION, SURGICAL PROCEDURE, OR ANY OTHER EXPOSURE?NO LATEX RISK : HAVE YOU EVER HAD ANY DIFFICULTY BREATHING OR HIVES AFTER EATING OR HANDLING ANY FRUITS, OR VEGETABLES; SUCH KIWI, BANANAS, STONE FRUITS, OR CHESTNUTSNO LATEX RISK : DO YOU HAVE A PREVIOUS PERSONAL HISTORY OF MORE THAN NINE SURGERIES, SPINA BIFIDA, OR REPEATED CATHERIZATIONS? NO LATEX RISK : ARE YOU FREQUENTLY EXPOSED TO LATEX PRODUCTS IN YOUR OCCUPATION?NO DATE ASKED : 09/30/2020 ALCOHOL USE: NO. BMI CARE GOAL FOLLOW-UP ABOVE NORMAL BMI FOLLOW-UPDIETARY MANAGEMENT EDUCATION, GUIDANCE, AND COUNSELING ALCOHOL SCREENING DID YOU HAVE A DRINK CONTAINING ALCOHOL IN THE PAST YEAR?NO POINTS0 INTERPRETATIONNEGATIVE RECREATIONAL DRUG USE DRUG USE?NO CAFFEINE CAFFEINE USE?YES HOW OFTEN AND HOW MUCH? 2 CUPS COFFEE PER DAY DAILY BASIS SEXUAL HX HAD SEX IN THE LAST 12 MONTHS (VAGINAL, ORAL, OR ANAL)?NO HAVE YOU EVER HAD AN STD?NO HIV / HEP-C SCREENING HIV TEST OFFERED TO PATIENT:YES DATE OFFERED:05/27/2020 TEST ACCEPTED:NO REASON:PATIENT DECLINED BROCHURE PROVIDED TO PATIENTYES HEP-C TEST OFFERED TO PATIENT:NO ORTHODOX [id number] CHEONDOISM LANGUAGE LANGUAGES SPOKEN:FRISIAN EDUCATION LEVEL OF EDUCATION:HIGH SCHOOL LEARNING BARRIERS / SPECIAL NEEDS CHANGE FROM LAST VISIT?YES BARRIERS TO LEARNING?NO HEARING IMPAIRED?NO VISION IMPAIRED?YES READING GLASSES :CORRECTIVE LENSES COGNITIVELY IMPAIRED?NO READINESS TO LEARN?YES LEARNING PREFERENCES?NO LEARNING CAPABILITIES PRESENT?YES EMOTIONAL BARRIERS?NO SPECIAL DEVICES?YES : CANE ASSOCIATE TEAM PHYSICIAN NEEDED?NO DOMESTIC VIOLENCE DO YOU FEEL SAFE IN YOUR ENVIRONMENT?YES OCCUPATION: DISABLED. DIET: REGULAR. EXERCISE: NO REGULAR EXERCISE. MARITAL STATUS: SINGLE. OTHERS AT HOME: NONE. - PFS REFERRAL NEEDED?NO CLERGY REFERRAL NEEDED?NO PUBLIC HEALTH REFERRAL NEEDED?NO HAS THE PATIENT BEEN EDUCATED REGARDING HIS/HER PLAN OF CARE?YES HAS THE PATIENT BEEN EDUCATED REGARDING PAIN, THE RISK FOR PAIN, THE IMPORTANCE OF EFFECTIVE PAIN MANAGEMENT, AND THE PAIN ASSESSMENT PROCESS?YES ADVANCE DIRECTIVE ADVANCE DIRECTIVE DISCUSSED WITH PATIENT:YES PATEINT STATES SHE HAS A HCP - SONIA BENNETT (SISTER) [phone], ALSO HAS A DNR REVIEW OF SYSTEMS CONSTITUTIONAL: ANY RECENT FEVER NO . CHILLS NO . WEIGHT CHANGE OF UNKNOWN REASONS NO . GASTROENTEROLOGY: NEW UNEXPLAINABLE CHANGES IN BOWEL CONTROL NO . CONSTIPATION NO . GENITOURINARY: ANY NEW CHANGE IN BLADDER CONTROL? NO . NEUROLOGY: NEW ONSET DIZZINESS OR NEUROLOGICAL CHANGES NOT MENTIONED NO . NEW NUMBNESS OR PAIN PATTERNS NOT MENTIONED AND PERTINENT TO TODAY'S VISIT NO . CARDIOLOGY: NEW CHEST PRESSURE NO . PATIENT DENIES NO . RESPIRATORY: UNEXPLAINABLE COUGH NO . NEW SHORTNESS OF BREATH NO . VITAL SIGNS WT 230.0 LBS, WT-KG 104.33 KG, HT 66.75 IN, BMI 36.29 INDEX, BP 171/81 MM HG, HR 88 /MIN, RR 16 /MIN, TEMP 96.6 F, OXYGEN SAT % 94%, SAFE IN ENV? (Y/N) YES, NA INITIALS AW 0945, REVIEWED BY: [facility]. JESUS RN. EXAMINATION GENERAL EXAMINATION: GENERALNO ACUTE DISTRESS, WELL NOURISHED AND HYDRATED. PSYCHAPPROPRIATE MOOD AND AFFECT . LUNGS:CLEAR TO AUSCULTATION BILATERALLY, NO WHEEZES, RHONCHI, RALES. HEART:NO MURMURS, REGULAR RATE AND RHYTHM. BACK:POINT TENDER ALONG LUMBAR SPINE, POSITIVE MODIFIED SLR LEFT SIDE.. ASSESSMENTS INTERVERTEBRAL DISC DISORDERS WITH RADICULOPATHY, LUMBOSACRAL REGION - M51.17 (PRIMARY) TREATMENT INTERVERTEBRAL DISC DISORDERS WITH RADICULOPATHY, LUMBOSACRAL REGION REFILL OXYCODONE-ACETAMINOPHEN TABLET, 10-325 MG, 1 TABLET NEEDED, ORALLY, EVERY 6 HRS NEEDED FOR PAIN, 30 DAYS, 120 NOTES: 60-YEAR-OLD FEMALE IN FOR CHRONIC PAIN FOLLOW-UP. MRI WAS REVIEWED WITH PATIENT TODAY. GIVEN PRESENTING SYMPTOMS, RESULTS OF PHYSICAL EXAMINATION, RESULTS FROM MRI, AND CONSULT WITH DR. CORTEZ RECOMMEND LEFT TRANSFORAMINAL EPIDURAL STEROID INJECTION L3-L4 L4-L5 L5-S1 WITH POSTPROCEDURAL FOLLOW-UP. PATIENT HAS EXPRESSED UNDERSTANDING OF AND WAS IN AGREEMENT WITH TREATMENT PLAN. GIVEN TIME TO ASK QUESTIONS AND EXPRESS CONCERNS. ISTOP REGISTRY REVIEWED AND DEMONSTRATES COMPLLIANCE. (REF # [id number] ) BRINGS IN MEDICATIONS WHICH IS APPROPRIATE FOR WHAT WAS DISPENSED. RECENT URINE TOXICOLOGY REVIEWED. NO UNAUTHORIZED MEDICATIONS. NO ILLICIT SUBSTANCES AND PRESCRIBED MEDICATIONS WERE PRESENT. CLINICAL NOTES: PRE-PROCEDURE INSTRUCTIONS PRINTED AND REVIEWED WITH PATIENT. PATIENT INSTRUCTED TO SCHEDULE INJECTION BETWEEN COSENTYX INJECTIONS DUE TO USE OF STEROID IN PROCEDURE. PATIENT IN AGREEMENT WITH INSTRUCTIONS, WILL CALL WITH ANY QUESTIONS. Omkar LEE RN. OTHERS REFILL INDOMETHACIN CAPSULE, 50 MG, 1 CAPSULE WITH FOOD OR MILK, ORALLY NEEDED FOR PAIN, TWICE A DAY, 30 DAYS, 60, REFILLS 2 REFILL LYRICA CAPSULE, 200 MG, 1 CAPSULE, ORALLY, TID MDD=3, 30 DAYS, 90, REFILLS 2 VISIT CODES 26806 OFFICE VISIT, EST PT., LEVEL 3. PROCEDURE CODES FA211 ESTABILISHED PATIENT [facility] CHARGE DISPOSITION & COMMUNICATION FOLLOW UP POST PROCEDURE (REASON: LEFT TRANSFORAMINAL LUMBAR EPIDURAL STEROID INJECTION L3-L4,L4-L5,L5-S1) ELECTRONICALLY SIGNED BY SOHEILA MEDRANO ON 10/02/2020 AT 10:25 AM EDT DISCLAIMER : THIS IS A VISIT SUMMARY EXTRACTED FROM THE [employer] CHART. IT IS NOT A COPY OF THE [employer] PROGRESS NOTE. MTDD
== END ==
LOC: M PAIN 10:00
PROVIDERS: ATTEND Family Medicine
DX: M51.17 Intervertebral disc disorders with radiculopathy, lumbosacral region (principal); E11.9 Type 2 diabetes mellitus without complications; K21.9 Gastro-esophageal reflux disease without esophagitis; E78.5 Hyperlipidemia, unspecified; I10 Essential (primary) hypertension; G25.81 Restless legs syndrome; M79.7 Fibromyalgia; L40.50 Arthropathic psoriasis, unspecified; G47.33 Obstructive sleep apnea (adult) (pediatric); J30.2 Other seasonal allergic rhinitis; I25.10 Atherosclerotic heart disease of native coronary artery without angina pectoris; F32.9 Major depressive disorder, single episode, unspecified; F17.210 Nicotine dependence, cigarettes, uncomplicated; Z79.82 Long term (current) use of aspirin; Z79.84 Long term (current) use of oral hypoglycemic drugs; Z79.899 Other long term (current) drug therapy; Z79.891 Long term (current) use of opiate analgesic

== ENCOUNTER → 2020-10-05 | Outpatient (REF) | payer OTHER, MEDICAID ==
[~2020-10-05] MED LIST changes: +BACTDSTA
== END ==
LOC: M SFHCLERA 15:05
PROVIDERS: ATTEND Nurse Practitioner Family
DX: R30.0 Dysuria (principal)
CPT/HCPCS: 81002; 87086; G0463

== ENCOUNTER 2020-10-13 09:57 | Emergency (ER) | payer OTHER, MEDICAID ==
[~2020-10-13] VITALS: Ht 165.1 cm; Wt 96.4 kg
[~2020-10-13 09:57] MED LIST changes: -BACTDSTA
[2020-10-13 11:37] LABS: BASO # 0.1 10^3/uL (0.0-0.2); BASO % 0.9 % (0.0-1.0); EOS # 0.2 10^3/uL (0.0-0.5); EOS % 2.7 % (0.0-3.0); HEMATOCRIT 41.6 % (36.0-47.0); LYMPH # 1.8 10^3/uL (1.5-5.0); LYMPH % 29.1 % (24.0-44.0); MEAN CORPUSCULAR HEMOGLOBIN 27.1 pg (27.0-33.0); MEAN CORPUSCULAR HGB CONC 31.3 g/dl (32.0-36.5); MEAN CORPUSCULAR VOLUME 86.8 fl (80.0-96.0); MONO # 0.4 10^3/uL (0.0-0.8); MONO % 5.7 % (2.0-8.0); NEUTROPHILS # 3.9 10^3/uL (1.5-8.5); NEUTROPHILS % 61.1 % (36.0-66.0); PLATELET COUNT, AUTOMATED 280 10^3/uL (150-450); RED BLOOD COUNT 4.79 10^6/uL (4.00-5.40); WHITE BLOOD COUNT 6.3 10^3/uL (4.0-10.0)
[2020-10-13 12:40] LABS: CALCIUM LEVEL 8.4 MG/DL (8.8-10.2); CREATININE FOR GFR 1.42 MG/DL (0.55-1.30)
[2020-10-13 12:42] LABS: POTASSIUM SERUM 6.5 MEQ/L (3.5-5.1)
[2020-10-13] MEDS ORDERED: NS 1,000 ML IV ONE (13:15)
[2020-10-13] MEDS ORDERED: SOD POLYSTYRENE SULFONATE SUSP 15 GM/60 ML UD PO ONE (13:15)
--- NOTE | 2020-10-13 13:58 | REP ---
INDICATION: ARF. COMPARISON: None. TECHNIQUE: Real-time sonographic evaluation of the kidneys is performed. FINDINGS: Renal cortical echogenicity pattern is normal bilaterally and contours are smooth. There is no hydronephrosis bilaterally. There is a cyst in the lower pole the right kidney 6.1 x 4.5 x 4.8 cm. There is a cyst of the mid left kidney 3.7 x 2.7 x 2.7 cm. The right kidney measures 11.7 x 5.1 x 5.2 cm. Left renal dimensions are 11.4 x 5.4 x 5.6 cm. IMPRESSION: No hydronephrosis bilaterally. There is a cyst in each kidney. <Electronically signed by German Escalona > 10/13/20 [id number]
[2020-10-13 16:46] VITALS: BP 135/66
[2020-10-13] MEDS ORDERED: BACTDSTA (18:11)
--- NOTE | 2020-10-14 09:58 | ECGEPIP ---
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
== END 2020-10-13 18:52 | disposition home or self-care (01) ==
LOC: M ED 09:57
DX: N17.9 Acute kidney failure, unspecified (principal); E87.5 Hyperkalemia; T50.995A Adverse effect of other drugs, medicaments and biological substances, initial encounter; Y92.89 Other specified places as the place of occurrence of the external cause; E11.9 Type 2 diabetes mellitus without complications; I10 Essential (primary) hypertension; J44.9 Chronic obstructive pulmonary disease, unspecified; L40.9 Psoriasis, unspecified; K21.9 Gastro-esophageal reflux disease without esophagitis; M19.90 Unspecified osteoarthritis, unspecified site; G47.33 Obstructive sleep apnea (adult) (pediatric); Z79.899 Other long term (current) drug therapy; Z79.84 Long term (current) use of oral hypoglycemic drugs

== ENCOUNTER → 2020-10-14 | Outpatient (CLI) | payer OTHER, MEDICAID ==
[~2020-10-14] MED LIST changes: +BACTDSTA
[2020-10-14 11:41] LABS: ALBUMIN 3.1 GM/DL (3.2-5.2); CALCIUM LEVEL 8.4 MG/DL (8.8-10.2); CREATININE FOR GFR 1.07 MG/DL (0.55-1.30); GLOMERULAR FILTRATION RATE 55.5 (>45); MAGNESIUM LEVEL 1.7 MG/DL (1.8-2.4); PHOSPHORUS LEVEL 3.5 MG/DL (2.5-4.9)
== END ==
LOC: M LAB 10:40
PROVIDERS: ATTEND Family Medicine
DX: N17.9 Acute kidney failure, unspecified (principal)

== ENCOUNTER → 2020-10-21 | Outpatient (CLI) | payer OTHER, MEDICAID ==
[2020-10-21 09:32] LABS: BLOOD UREA NITROGEN 16 MG/DL (7-18); CALCIUM LEVEL 8.2 MG/DL (8.8-10.2); CARBON DIOXIDE LEVEL 27 MEQ/L (21-32); CHLORIDE LEVEL 105 MEQ/L (98-107); CREATININE FOR GFR 0.97 MG/DL (0.55-1.30); GLOMERULAR FILTRATION RATE > 60.0 (>45); GLUCOSE, FASTING 166 MG/DL (70-100); MAGNESIUM LEVEL 1.8 MG/DL (1.8-2.4); POTASSIUM SERUM 4.2 MEQ/L (3.5-5.1); SODIUM LEVEL 137 MEQ/L (136-145)
== END ==
LOC: M LAB 08:01
PROVIDERS: ATTEND Family Medicine
DX: N17.9 Acute kidney failure, unspecified (principal)

== ENCOUNTER → 2020-11-04 | Outpatient (CLI) | payer OTHER, MEDICAID | LOC: M LABSMTC 09:39 | PROVIDERS: ATTEND Anesthesiology | DX: Z11.52 Encounter for screening for COVID-19 (principal) ==

== ENCOUNTER → 2020-11-09 | Outpatient (CLI) | payer OTHER, MEDICAID ==
[~2020-11-09] MED LIST changes: +BUPIVACAINE HCL 0.25% 30ML VIAL As Ordered ONE; +ISOVUE-M 300 61% 15ML VIAL As Ordered ONE; -KLOR10TA76 PO; +LIDOCAINE 1% SDV 30ML VIAL As Ordered ONE; +POTA-136 PO; +dexameTHASONE 10MG/1ML VIAL PRES.FREE (J1100 PER 1MG) As Ordered ONE; +diazePAM 5MG TABLET As Ordered ONE; +oxyCODONE 5MG TAB As Ordered ONE
--- NOTE | 2020-11-09 16:59 | REP ---
INDICATION: LEFT TRANS. EPIDURAL STEROID INJ. L3-L4, L4-L5, L5-S1. COMPARISON: None. TECHNIQUE: Multiple C-arm views lower lumbar spine. FINDINGS: [place] are seen along the lower lumbar spine. Small amount of contrast is injected. IMPRESSION: 65 seconds fluoroscopy time utilized. <Electronically signed by German Escalona > 11/09/20 [id number]
== END ==
LOC: M PAIN 13:00
PROVIDERS: ATTEND Anesthesiology
DX: M51.16 Intervertebral disc disorders with radiculopathy, lumbar region (principal); E11.9 Type 2 diabetes mellitus without complications; K21.9 Gastro-esophageal reflux disease without esophagitis; E78.5 Hyperlipidemia, unspecified; I10 Essential (primary) hypertension; G25.81 Restless legs syndrome; L40.50 Arthropathic psoriasis, unspecified; E66.9 Obesity, unspecified; D64.9 Anemia, unspecified; G47.33 Obstructive sleep apnea (adult) (pediatric); J98.4 Other disorders of lung; J30.2 Other seasonal allergic rhinitis; I25.10 Atherosclerotic heart disease of native coronary artery without angina pectoris; F32.9 Major depressive disorder, single episode, unspecified; F17.210 Nicotine dependence, cigarettes, uncomplicated; Z68.37 Body mass index [BMI] 37.0-37.9, adult; Z79.82 Long term (current) use of aspirin; Z79.84 Long term (current) use of oral hypoglycemic drugs; Z79.891 Long term (current) use of opiate analgesic; Z79.899 Other long term (current) drug therapy; Z88.2 Allergy status to sulfonamides
CPT/HCPCS: 64483; 64484; J1100; Q9967

== ENCOUNTER → 2020-12-24 | Outpatient (CLI) | payer OTHER, MEDICAID ==
[~2020-12-24] MED LIST changes: -BUPIVACAINE HCL 0.25% 30ML VIAL As Ordered ONE; -ISOVUE-M 300 61% 15ML VIAL As Ordered ONE; -LIDOCAINE 1% SDV 30ML VIAL As Ordered ONE; -dexameTHASONE 10MG/1ML VIAL PRES.FREE (J1100 PER 1MG) As Ordered ONE; -diazePAM 5MG TABLET As Ordered ONE; -oxyCODONE 5MG TAB As Ordered ONE
--- NOTE | 2020-12-24 11:31 | REP ---
INDICATION: SPONDYLOSIS. COMPARISON: None. TECHNIQUE: AP and lateral views. FINDINGS: Small marginal osteophytes are seen bilaterally at every level. There is universal L5-S1 disc space narrowing which is moderate to severe. Posterior disc space narrowing is seen at all other levels. There is anterior lipping at every level. Degenerative facet joint changes are seen bilaterally at every level particularly L4-5 and L5-S1. IMPRESSION: Chronic changes as described above. <Electronically signed by Jeronimo Plummer > 12/24/20 [id number]
== END ==
LOC: M SOG 10:30
PROVIDERS: ATTEND Orthopaedic Surgery
DX: M47.896 Other spondylosis, lumbar region (principal)

== ENCOUNTER → 2021-01-05 | Outpatient (CLI) | payer OTHER, MEDICAID ==
--- NOTE | 2021-01-05 16:58 | DEXAMM ---
INDICATION: SPINAL STENOSIS. COMPARISON: None. TECHNIQUE: Bone density was measured using dual-energy x-ray absorptiometry (DEXA). FINDINGS: AP SPINE L1-L4 BMD 1.624 g/cm2 Young Adult T-Score 3.3 Age Matched Z-Score 4.6. LT FEMUR, TOTAL BMD 1.043 g/cm2 Young Adult T-Score 0.3 Age Matched Z-Score 1.3. LT NECK BMD 0.952 g/cm2 Young Adult T-Score -0.6 Age Matched Z-Score 0.7. RT FEMUR, TOTAL BMD 0.974 g/cm2 Young Adult T-Score -0.3 Age Matched Z-Score 0.7. RT NECK BMD 0.861 g/cm2 Young Adult T-Score -1.3 Age Matched Z-Score 0.0. IMPRESSION: There is normal bone density of the spine. There is normal bone density of the left hip. There is low bone density of the right hip. FOLLOW-UP: Recommendation for the next bone density exam: 2 years. <Electronically signed by German Escalona > 01/05/21 [id number]
== END ==
LOC: M WHC 10:31
PROVIDERS: ATTEND Orthopaedic Surgery
DX: M48.062 Spinal stenosis, lumbar region with neurogenic claudication (principal); M81.0 Age-related osteoporosis without current pathological fracture

== ENCOUNTER → 2021-01-14 | Outpatient (CLI) | payer OTHER, MEDICAID ==
[~2021-01-14] MED LIST changes: +LOSA25TA13 PO; -LOSA25TA14 PO
== END ==
LOC: M PAIN 14:00
PROVIDERS: ATTEND Anesthesiology
DX: M25.562 Pain in left knee (principal); M79.2 Neuralgia and neuritis, unspecified; M25.512 Pain in left shoulder; E11.9 Type 2 diabetes mellitus without complications; K21.9 Gastro-esophageal reflux disease without esophagitis; J98.4 Other disorders of lung; E78.5 Hyperlipidemia, unspecified; I10 Essential (primary) hypertension; G25.81 Restless legs syndrome; M79.7 Fibromyalgia; L40.50 Arthropathic psoriasis, unspecified; E66.9 Obesity, unspecified; D64.9 Anemia, unspecified; J30.1 Allergic rhinitis due to pollen; G47.33 Obstructive sleep apnea (adult) (pediatric); I25.10 Atherosclerotic heart disease of native coronary artery without angina pectoris; M51.26 Other intervertebral disc displacement, lumbar region; F32.A Depression, unspecified; F17.210 Nicotine dependence, cigarettes, uncomplicated; Z79.82 Long term (current) use of aspirin; Z79.84 Long term (current) use of oral hypoglycemic drugs; Z79.899 Other long term (current) drug therapy; Z88.2 Allergy status to sulfonamides; Z68.37 Body mass index [BMI] 37.0-37.9, adult

== ENCOUNTER → 2021-01-27 | Outpatient (CLI) | payer OTHER, MEDICAID | LOC: M PLAIMG 10:30 | PROVIDERS: ATTEND Orthopaedic Surgery | DX: M48.062 Spinal stenosis, lumbar region with neurogenic claudication (principal) ==

== ENCOUNTER → 2021-01-28 | Outpatient (CLI) | payer OTHER, MEDICAID ==
[~2021-01-28] MED LIST changes: -LOSA25TA13 PO; +LOSA25TA14 PO
== END ==
LOC: M PAIN 09:30
PROVIDERS: ATTEND Anesthesiology
DX: G89.29 Other chronic pain (principal); M51.16 Intervertebral disc disorders with radiculopathy, lumbar region; E11.9 Type 2 diabetes mellitus without complications; F17.210 Nicotine dependence, cigarettes, uncomplicated; K21.9 Gastro-esophageal reflux disease without esophagitis; E78.5 Hyperlipidemia, unspecified; I10 Essential (primary) hypertension; G25.81 Restless legs syndrome; M79.7 Fibromyalgia; L40.50 Arthropathic psoriasis, unspecified; G47.33 Obstructive sleep apnea (adult) (pediatric); J30.1 Allergic rhinitis due to pollen; I25.10 Atherosclerotic heart disease of native coronary artery without angina pectoris; F32.A Depression, unspecified; Z79.82 Long term (current) use of aspirin; Z79.891 Long term (current) use of opiate analgesic; Z79.84 Long term (current) use of oral hypoglycemic drugs; Z79.899 Other long term (current) drug therapy; Z88.2 Allergy status to sulfonamides

== ENCOUNTER → 2021-04-05 | Outpatient (CLI) | payer OTHER, MEDICAID ==
[~2021-04-05] MED LIST changes: +LOSA25TA13 PO; -LOSA25TA14 PO
[2021-04-05 13:15] LABS: CALCIUM LEVEL 9.1 MG/DL (8.8-10.2); CREATININE FOR GFR 1.25 MG/DL (0.55-1.30); GLOMERULAR FILTRATION RATE 46.4 (>45); POTASSIUM SERUM 4.8 MEQ/L (3.5-5.1)
[2021-04-05 13:16] LABS: HEMOGLOBIN A1c 7.5 %
== END ==
LOC: M LAB 12:00
PROVIDERS: ATTEND Family Medicine
DX: E11.65 Type 2 diabetes mellitus with hyperglycemia (principal)

== ENCOUNTER → 2021-04-14 | Outpatient (CLI) | payer OTHER, MEDICAID | LOC: M SOG 09:51 | PROVIDERS: ATTEND Orthopaedic Surgery | DX: S46.011A Strain of muscle(s) and tendon(s) of the rotator cuff of right shoulder, initial encounter (principal); W18.30XA Fall on same level, unspecified, initial encounter ==

== ENCOUNTER → 2021-04-20 | Outpatient (CLI) | payer OTHER, MEDICAID | LOC: M RAD 11:24 | PROVIDERS: ATTEND Family Medicine | DX: R06.02 Shortness of breath (principal); R20.9 Unspecified disturbances of skin sensation ==

== ENCOUNTER → 2021-04-22 | Outpatient (CLI) | payer OTHER, MEDICAID | LOC: M PAIN 10:15 | PROVIDERS: ATTEND Nurse Practitioner Family | DX: M51.16 Intervertebral disc disorders with radiculopathy, lumbar region (principal); E11.9 Type 2 diabetes mellitus without complications; K21.9 Gastro-esophageal reflux disease without esophagitis; E78.5 Hyperlipidemia, unspecified; I10 Essential (primary) hypertension; G25.81 Restless legs syndrome; M79.7 Fibromyalgia; L40.50 Arthropathic psoriasis, unspecified; E66.9 Obesity, unspecified; G47.33 Obstructive sleep apnea (adult) (pediatric); D64.9 Anemia, unspecified; F17.210 Nicotine dependence, cigarettes, uncomplicated; I25.10 Atherosclerotic heart disease of native coronary artery without angina pectoris; F32.A Depression, unspecified; J30.1 Allergic rhinitis due to pollen; Z79.82 Long term (current) use of aspirin; Z79.84 Long term (current) use of oral hypoglycemic drugs; Z79.891 Long term (current) use of opiate analgesic; Z79.899 Other long term (current) drug therapy; Z88.2 Allergy status to sulfonamides; Z68.38 Body mass index [BMI] 38.0-38.9, adult ==

== ENCOUNTER → 2021-05-03 | Outpatient (CLI) | payer OTHER, MEDICAID ==
[~2021-05-03] MED LIST changes: -FEXO60CA PO; +FEXO60TA99 PO
== END ==
LOC: M CARPUL 09:18
PROVIDERS: ATTEND Family Medicine
DX: R55 Syncope and collapse (principal)

== ENCOUNTER 2021-05-24 10:47 | Inpatient (IN) | payer OTHER, MEDICAID ==
[~2021-05-24] VITALS: Ht 162.6 cm; Wt 107.7 kg
[2021-05-24] MEDS ORDERED: ACETAMINOPHEN *IV* 1,000 MG in IV 1 EA IV ONE (12:50)
[2021-05-24 13:43] LABS: BASO # 0.1 10^3/uL (0.0-0.2); BASO % 0.6 % (0.0-1.0); EOS # 0.2 10^3/uL (0.0-0.5); EOS % 2.1 % (0.0-3.0); HEMATOCRIT 38.5 % (36.0-47.0); HEMOGLOBIN 11.8 g/dl (12.0-15.5); LYMPH % 23.6 % (24.0-44.0); MEAN CORPUSCULAR HEMOGLOBIN 24.7 pg (27.0-33.0); MEAN CORPUSCULAR HGB CONC 30.6 g/dl (32.0-36.5); MEAN CORPUSCULAR VOLUME 80.5 fl (80.0-96.0); MONO # 0.5 10^3/uL (0.0-0.8); MONO % 5.8 % (2.0-8.0); NEUTROPHILS # 5.6 10^3/uL (1.5-8.5); NEUTROPHILS % 67.4 % (36.0-66.0); PLATELET COUNT, AUTOMATED 249 10^3/uL (150-450); RED BLOOD COUNT 4.78 10^6/uL (4.00-5.40); WHITE BLOOD COUNT 8.3 10^3/uL (4.0-10.0)
[2021-05-24 14:08] LABS: CK-MB VALUE MASS < 1.0 NG/ML (<3.6); CPK CREATINE PHOSPHOKINASE 54 U/L (26-192); MB/CK RELATIVE INDEX 1.85 (< OR =4)
[2021-05-24 14:14] LABS: RSV AMPLIFICATION NEGATIVE (NEGATIVE)
[2021-05-24 14:15] LABS: BLOOD UREA NITROGEN 18 MG/DL (7-18); CALCIUM LEVEL 8.8 MG/DL (8.8-10.2); CARBON DIOXIDE LEVEL 32 MEQ/L (21-32); CHLORIDE LEVEL 100 MEQ/L (98-107); CREATININE FOR GFR 1.09 MG/DL (0.55-1.30); ETHYL ALCOHOL (ETHANOL) < 0.003 % (0.000-0.010); FREE T4 0.93 NG/DL (0.76-1.46); GLOMERULAR FILTRATION RATE 54.3 (>45); GLUCOSE, FASTING 94 MG/DL (70-100); MAGNESIUM LEVEL 1.6 MG/DL (1.8-2.4); POTASSIUM SERUM 4.6 MEQ/L (3.5-5.1); SODIUM LEVEL 136 MEQ/L (136-145)
[2021-05-24] MEDS ORDERED: MORPHINE 2 MG/ML 1ML VIAL IV ONE (14:15)
[2021-05-24] MEDS ORDERED: MAG SULF 1GM/100ML (MAG RUN) 1 GM in IV 1 EA IV ONE (15:00)
[2021-05-24] MEDS ORDERED: DULO1CAP6 PO (15:27)
[2021-05-24] MEDS ORDERED: OMEP20TA2 PO (15:27)
[2021-05-24] MEDS ORDERED: METF850T4 PO (15:27)
[2021-05-24] MEDS ORDERED: JARD1TAB3 PO (15:27)
[2021-05-24] MEDS ORDERED: METO1TAB87 PO (15:27)
[2021-05-24] MEDS ORDERED: HOME MED LIST COMPLETE! XX SCH (15:30)
[2021-05-24] MEDS ORDERED: DEXTROSE 50% 50 ML SYRINGE IV PRN (16:00)
[2021-05-24] MEDS ORDERED: GLUCOSE 4GM CHEW TABLET PO PRN (16:00)
[2021-05-24] MEDS ORDERED: GLUCAGON INJ 1MG VIAL SC PRN (16:00)
[2021-05-24 16:13] LABS: AMPHETAMINES LEVEL URINE NEGATIVE (NEGATIVE); BARBITURATES URINE NEGATIVE (NEGATIVE); BENZODIAZEPINES URINE NEGATIVE (NEGATIVE); CANNABINOIDS URINE NEGATIVE (NEGATIVE); COCAINE METABOLITE URINE NEGATIVE (NEGATIVE); METHADONE URINE NEGATIVE (NEGATIVE); OPIATES URINE POSITIVE (NEGATIVE); PHENCYCLIDINE URINE NEGATIVE (NEGATIVE)
[2021-05-24 17:22] LABS: FERRITIN 6 NG/ML (8-252); IRON (FE) 27 UG/DL (50-170); TOTAL IRON BINDING CAPACITY 450 UG/DL (250-450)
[2021-05-24] MEDS: HumaLOG INSULIN (NovoLOG) PER UNIT SC SCH (17:30)
[2021-05-24 17:31] LABS: FOLATE 9.9 NG/ML; VITAMIN B12 LEVEL 553 PG/ML
[2021-05-24] MEDS: PERCOCET 5MG/325MG TAB PO PRN ×2 (17:35→22:14)
[2021-05-24] MEDS: buPROPion **SR TABLET** (ZYBAN) 150MG PO SCH (21:00)
[2021-05-24] MEDS ORDERED: EZETIMIBE 10MG TABLET (ZETIA) PO SCH (21:00)
[2021-05-24] MEDS ORDERED: rOPINIRole 1MG TAB PO SCH (21:00)
[2021-05-24] MEDS ORDERED: HumaLOG INSULIN (NovoLOG) PER UNIT SC SCH (21:00)
[2021-05-24] MEDS: PREGABALIN 100 MG CAP (LYRICA) PO SCH (21:00)
[2021-05-24] MEDS ORDERED: PRAVASTATIN 20 MG TAB PO SCH (21:00)
[2021-05-24] MEDS ORDERED: rOPINIRole 0.25 MG TAB(REQUIP) PO SCH (21:00)
[2021-05-24] MEDS ORDERED: METOPROLOL TART 25 MG TABLET PO SCH (21:00)
[2021-05-25] MEDS: PERCOCET 5MG/325MG TAB PO PRN ×2 (05:56→15:13)
[2021-05-25 07:24] LABS: HEMATOCRIT 36.6 % (36.0-47.0); HEMOGLOBIN 11.3 g/dl (12.0-15.5); MEAN CORPUSCULAR HEMOGLOBIN 24.9 pg (27.0-33.0); MEAN CORPUSCULAR HGB CONC 30.9 g/dl (32.0-36.5); MEAN CORPUSCULAR VOLUME 80.8 fl (80.0-96.0); PLATELET COUNT, AUTOMATED 281 10^3/uL (150-450); RED BLOOD COUNT 4.53 10^6/uL (4.00-5.40); WHITE BLOOD COUNT 5.8 10^3/uL (4.0-10.0)
[2021-05-25 07:47] LABS: ALBUMIN 3.4 GM/DL (3.2-5.2); BILIRUBIN,TOTAL 0.5 MG/DL (0.2-1.0); CALCIUM LEVEL 9.3 MG/DL (8.8-10.2); CREATININE FOR GFR 1.16 MG/DL (0.55-1.30); GLOMERULAR FILTRATION RATE 50.6 (>45); MAGNESIUM LEVEL 1.9 MG/DL (1.8-2.4); PHOSPHORUS LEVEL 4.4 MG/DL (2.5-4.9); POTASSIUM SERUM 4.5 MEQ/L (3.5-5.1); TOTAL PROTEIN 6.6 GM/DL (6.4-8.2)
[2021-05-25] MEDS: HumaLOG INSULIN (NovoLOG) PER UNIT SC SCH ×3 (08:19→17:46)
[2021-05-25] MEDS: PREGABALIN 100 MG CAP (LYRICA) PO SCH (08:20)
[2021-05-25 08:25] VITALS: BP 158/68
[2021-05-25] MEDS: buPROPion **SR TABLET** (ZYBAN) 150MG PO SCH (08:25)
[2021-05-25] MEDS ORDERED: OMEPRAZOLE 20MG CAP PO SCH (09:00)
[2021-05-25] MEDS ORDERED: ENOXAPARIN 40MG/0.4ML SYRINGE (J1650 PER 10MG) SC SCH (09:00)
[2021-05-25] MEDS ORDERED: METOPROLOL TART 50 MG TAB PO SCH (09:00)
[2021-05-25] MEDS ORDERED: DULoxetine 30MG CAPSULE (CYMBALTA) PO SCH ×2 (09:00)
[2021-05-25] MEDS ORDERED: ALBUTEROL SULFATE 2.5 MG/0.5 ML INH NEB SOLN NEB ONE (12:40)
[2021-05-25] MEDS ORDERED: predniSONE 20 MG TAB PO ONE (12:40)
[2021-05-25] MEDS ORDERED: AZITHROMYCIN 250MG TABLET PO ONE (12:40)
[2021-05-25] MEDS ORDERED: AZIT-12 PO (12:46)
[2021-05-25] MEDS ORDERED: SELF1KIT MC (12:46)
[2021-05-25] MEDS ORDERED: ISOVUE-370 76% 100ML VIAL As Ordered ONE (13:21)
[2021-05-25 14:45] VITALS: BP 140/70
== END 2021-05-25 18:35 | disposition home or self-care (01) | DRG 312 ==
LOC: M ED 10:47 → EDBD 10:47 → M ED INP 15:03 → ENRESERV 05-25 13:59 → M MSPAV 05-25 14:50
PROVIDERS: ADMIT Internal Medicine; ATTEND General Practice
DX: I95.1 Orthostatic hypotension (principal); J44.1 Chronic obstructive pulmonary disease with (acute) exacerbation; E11.9 Type 2 diabetes mellitus without complications; K21.9 Gastro-esophageal reflux disease without esophagitis; E78.5 Hyperlipidemia, unspecified; I10 Essential (primary) hypertension; I49.9 Cardiac arrhythmia, unspecified; G25.81 Restless legs syndrome; M79.7 Fibromyalgia; L40.50 Arthropathic psoriasis, unspecified; E66.9 Obesity, unspecified; D64.9 Anemia, unspecified; Z66 Do not resuscitate; G47.33 Obstructive sleep apnea (adult) (pediatric); I25.10 Atherosclerotic heart disease of native coronary artery without angina pectoris; M51.26 Other intervertebral disc displacement, lumbar region; F32.A Depression, unspecified; Z96.652 Presence of left artificial knee joint; Z90.49 Acquired absence of other specified parts of digestive tract; F17.210 Nicotine dependence, cigarettes, uncomplicated; G89.29 Other chronic pain; Z79.84 Long term (current) use of oral hypoglycemic drugs; Z79.899 Other long term (current) drug therapy

== ENCOUNTER → 2021-06-08 | Outpatient (CLI) | payer OTHER, MEDICAID ==
[~2021-06-08] MED LIST changes: +AZIT-12 PO; +DULO1CAP6 PO; +JARD1TAB3 PO; +METF850T4 PO; +METO1TAB87 PO; +OMEP20TA2 PO; +SELF1KIT MC
== END ==
LOC: M PLAIMG 09:59
PROVIDERS: ATTEND Orthopaedic Surgery
DX: M75.42 Impingement syndrome of left shoulder (principal)
CPT/HCPCS: 73221; G0463

== ENCOUNTER → 2021-06-08 | Outpatient (CLI) | payer OTHER, MEDICAID | LOC: M PAIN 14:15 | PROVIDERS: ATTEND Anesthesiology | DX: M25.512 Pain in left shoulder (principal); M25.562 Pain in left knee; E11.9 Type 2 diabetes mellitus without complications; J98.4 Other disorders of lung; K21.9 Gastro-esophageal reflux disease without esophagitis; E78.5 Hyperlipidemia, unspecified; I10 Essential (primary) hypertension; M79.7 Fibromyalgia; L40.50 Arthropathic psoriasis, unspecified; E66.9 Obesity, unspecified; G47.33 Obstructive sleep apnea (adult) (pediatric); I25.10 Atherosclerotic heart disease of native coronary artery without angina pectoris; M51.26 Other intervertebral disc displacement, lumbar region; F32.A Depression, unspecified; Z96.652 Presence of left artificial knee joint; Z79.82 Long term (current) use of aspirin; Z79.84 Long term (current) use of oral hypoglycemic drugs; Z79.899 Other long term (current) drug therapy; F17.210 Nicotine dependence, cigarettes, uncomplicated; Z68.37 Body mass index [BMI] 37.0-37.9, adult ==

== ENCOUNTER → 2021-06-14 | Outpatient (CLI) | payer OTHER, MEDICAID ==
[2021-06-14 11:47] LABS: BLOOD UREA NITROGEN 10 MG/DL (7-18); GLOMERULAR FILTRATION RATE > 60.0 (>45)
== END ==
LOC: M LAB 09:40
PROVIDERS: ATTEND Family Medicine
DX: E11.9 Type 2 diabetes mellitus without complications (principal)

== ENCOUNTER → 2021-06-16 | Outpatient (CLI) | payer OTHER, MEDICAID ==
[~2021-06-16] MED LIST changes: +PROHANCE 279.3MG/ML 15ML VIAL ONE; +PROHANCE 279.3MG/ML 5ML VIAL ONE
== END ==
LOC: M PLAIMG 09:56
PROVIDERS: ATTEND Family Medicine
DX: R55 Syncope and collapse (principal); R51.9 Headache, unspecified
CPT/HCPCS: 70553; A9576

== ENCOUNTER → 2021-06-24 | Outpatient (CLI) | payer OTHER, MEDICAID ==
[~2021-06-24] MED LIST changes: -PROHANCE 279.3MG/ML 15ML VIAL ONE; -PROHANCE 279.3MG/ML 5ML VIAL ONE
[2021-06-24 14:51] LABS: BASO # 0.1 10^3/uL (0.0-0.2); BASO % 0.6 % (0.0-1.0); EOS # 0.2 10^3/uL (0.0-0.5); EOS % 2.5 % (0.0-3.0); HEMATOCRIT 37.3 % (36.0-47.0); LYMPH # 1.7 10^3/uL (1.5-5.0); LYMPH % 21.3 % (24.0-44.0); MEAN CORPUSCULAR HEMOGLOBIN 24.1 pg (27.0-33.0); MEAN CORPUSCULAR HGB CONC 29.5 g/dl (32.0-36.5); MEAN CORPUSCULAR VOLUME 81.8 fl (80.0-96.0); MONO # 0.4 10^3/uL (0.0-0.8); MONO % 5.2 % (2.0-8.0); NEUTROPHILS # 5.6 10^3/uL (1.5-8.5); NEUTROPHILS % 69.9 % (36.0-66.0); PLATELET COUNT, AUTOMATED 324 10^3/uL (150-450); RED BLOOD COUNT 4.56 10^6/uL (4.00-5.40)
[2021-06-24 15:09] LABS: ERYTHROCYTE SEDIMENTATION RATE 21 mm/hr (0-30)
[2021-06-24 15:19] LABS: ALBUMIN 3.3 GM/DL (3.2-5.2); ALT/SGPT 24 U/L (12-78); BILIRUBIN,TOTAL 0.2 MG/DL (0.2-1.0); BLOOD UREA NITROGEN 8 MG/DL (7-18); C REACTIVE PROTEIN QUANTITATIV 1.04 MG/DL (0.00-0.30); CALCIUM LEVEL 9.3 MG/DL (8.8-10.2); CARBON DIOXIDE LEVEL 30 MEQ/L (21-32); CHLORIDE LEVEL 103 MEQ/L (98-107); CREATININE FOR GFR 0.95 MG/DL (0.55-1.30); GLOMERULAR FILTRATION RATE > 60.0 (>45); GLUCOSE, FASTING 199 MG/DL (70-100); POTASSIUM SERUM 4.6 MEQ/L (3.5-5.1); SODIUM LEVEL 138 MEQ/L (136-145); TOTAL PROTEIN 6.6 GM/DL (6.4-8.2)
== END ==
LOC: M LAB 14:11
PROVIDERS: ATTEND Physician Assistant
DX: L40.9 Psoriasis, unspecified (principal)

== ENCOUNTER → 2021-08-11 | Outpatient (CLI) | payer OTHER, MEDICAID | LOC: M PAIN 10:00 | PROVIDERS: ATTEND Anesthesiology | DX: M79.18 Myalgia, other site (principal); M54.2 Cervicalgia; E11.9 Type 2 diabetes mellitus without complications; K21.9 Gastro-esophageal reflux disease without esophagitis; E78.5 Hyperlipidemia, unspecified; I10 Essential (primary) hypertension; G25.81 Restless legs syndrome; M79.7 Fibromyalgia; L40.50 Arthropathic psoriasis, unspecified; E66.9 Obesity, unspecified; D64.9 Anemia, unspecified; I25.10 Atherosclerotic heart disease of native coronary artery without angina pectoris; M51.26 Other intervertebral disc displacement, lumbar region; F32.A Depression, unspecified; F17.210 Nicotine dependence, cigarettes, uncomplicated; J98.4 Other disorders of lung; Z79.82 Long term (current) use of aspirin; Z79.84 Long term (current) use of oral hypoglycemic drugs; Z79.891 Long term (current) use of opiate analgesic; Z79.899 Other long term (current) drug therapy; J30.1 Allergic rhinitis due to pollen; Z88.2 Allergy status to sulfonamides; Z68.35 Body mass index [BMI] 35.0-35.9, adult ==

== ENCOUNTER 2021-10-03 08:18 | Emergency (ER) | payer MEDICARE, MEDICAID ==
[~2021-10-03 08:18] MED LIST changes: +LEVO1TAB40 PO; -LEVO750T13 PO; +NYST-13 EXT; -NYST10CR EXT
[2021-10-03] MEDS ORDERED: diazePAM 5MG TABLET PO ONE (09:40)
[2021-10-03] MEDS ORDERED: LIDOCAINE 5% (LIDODERM) PATCH TD ONE (09:40)
[2021-10-03] MEDS ORDERED: KETOROLAC 60MG 2ML VIAL IM ONE (09:40)
[2021-10-03] MEDS ORDERED: NS 1,000 ML IV ONE (09:55)
[2021-10-03] MEDS ORDERED: KETOROLAC 30 MG/ML 1ML VIAL IV ONE (09:55)
[2021-10-03] MEDS ORDERED: ONDANSETRON 4MG 2ML VIAL IV ONE (09:55)
[2021-10-03] MEDS ORDERED: ASPE4PAD TOP (10:33)
[2021-10-03] MEDS ORDERED: METH-1165 PO (10:33)
[2021-10-03 10:42] VITALS: BP 157/75
[2021-10-03] MEDS ORDERED: **NOTE PATIENT COMMENT** MISC XX ONE (21:00)
== END 2021-10-03 10:45 | disposition home or self-care (01) ==
LOC: M ED 08:18 → EDBD 08:18 → M ED 10:45
DX: S79.912A Unspecified injury of left hip, initial encounter (principal); M16.12 Unilateral primary osteoarthritis, left hip; W06.XXXA Fall from bed, initial encounter; Y92.009 Unspecified place in unspecified non-institutional (private) residence as the place of occurrence of the external cause; F17.210 Nicotine dependence, cigarettes, uncomplicated
CPT/HCPCS: 73502; 96372; 99284; J1885

== ENCOUNTER → 2021-12-01 | Outpatient (CLI) | payer MEDICARE, MEDICAID, OTHER ==
[~2021-12-01] MED LIST changes: +ASPE4PAD TOP; +METH-1165 PO
== END ==
LOC: M PAIN 10:45
PROVIDERS: ATTEND Nurse Practitioner Family
DX: M79.18 Myalgia, other site (principal); M54.50 Low back pain, unspecified; E11.9 Type 2 diabetes mellitus without complications; J98.4 Other disorders of lung; K21.9 Gastro-esophageal reflux disease without esophagitis; M19.90 Unspecified osteoarthritis, unspecified site; M54.2 Cervicalgia; M25.519 Pain in unspecified shoulder; M79.606 Pain in leg, unspecified; E78.5 Hyperlipidemia, unspecified; I10 Essential (primary) hypertension; G25.81 Restless legs syndrome; M79.7 Fibromyalgia; J30.1 Allergic rhinitis due to pollen; L40.50 Arthropathic psoriasis, unspecified; E66.9 Obesity, unspecified; D64.9 Anemia, unspecified; G47.33 Obstructive sleep apnea (adult) (pediatric); F32.A Depression, unspecified; I25.10 Atherosclerotic heart disease of native coronary artery without angina pectoris; F17.210 Nicotine dependence, cigarettes, uncomplicated; Z79.891 Long term (current) use of opiate analgesic; Z79.82 Long term (current) use of aspirin; Z96.653 Presence of artificial knee joint, bilateral; Z68.35 Body mass index [BMI] 35.0-35.9, adult; Z79.84 Long term (current) use of oral hypoglycemic drugs; Z79.899 Other long term (current) drug therapy; Z88.2 Allergy status to sulfonamides

== ENCOUNTER 2021-12-07 09:02 | Outpatient (RCR) | payer MEDICARE, MEDICAID ==
[2021-12-28] MEDS ORDERED: D31000CA4 PO (13:42)
[2021-12-28] MEDS ORDERED: FLUT1BLS8 INH (13:42)
[2021-12-28] MEDS ORDERED: CHOL4POW26 PO (13:42)
[2021-12-28] MEDS ORDERED: CHLO125TA PO (13:42)
[2021-12-28] MEDS ORDERED: PREG200C PO (13:42)
[2021-12-28] MEDS ORDERED: COSE1INJ SC (13:42)
[2021-12-28] MEDS ORDERED: BUPR-71 PO (13:42)
[2021-12-28] MEDS ORDERED: BAYE81TA10 PO (13:42)
[2021-12-28] MEDS ORDERED: BLAC40CA PO (13:42)
[2021-12-28] MEDS ORDERED: PROA1AER2 IN (13:50)
== END 2021-12-27 ==
LOC: M PT 09:02
PROVIDERS: ATTEND Orthopaedic Surgery Adult Reconstructive Orthopaedic Surgery
DX: M17.11 Unilateral primary osteoarthritis, right knee (principal)

== ENCOUNTER → 2021-12-14 | Outpatient (CLI) | payer OTHER, MEDICAID, MEDICARE ==
[~2021-12-14] MED LIST changes: +BAYE81TA10 PO; +BLAC40CA PO; +BUPR-71 PO; +CHLO125TA PO; +CHOL4POW26 PO; +D31000CA4 PO; +FLUT1BLS8 INH; +PREG200C PO; +PROA1AER2 IN
== END ==
LOC: M PAIN 10:00
PROVIDERS: ATTEND Nurse Practitioner Family
DX: M25.512 Pain in left shoulder (principal); M25.562 Pain in left knee; E11.9 Type 2 diabetes mellitus without complications; J98.4 Other disorders of lung; K21.9 Gastro-esophageal reflux disease without esophagitis; M19.90 Unspecified osteoarthritis, unspecified site; M54.2 Cervicalgia; E78.5 Hyperlipidemia, unspecified; I10 Essential (primary) hypertension; G25.81 Restless legs syndrome; M79.7 Fibromyalgia; L40.50 Arthropathic psoriasis, unspecified; E66.9 Obesity, unspecified; D64.9 Anemia, unspecified; G47.33 Obstructive sleep apnea (adult) (pediatric); M51.26 Other intervertebral disc displacement, lumbar region; J30.1 Allergic rhinitis due to pollen; I25.10 Atherosclerotic heart disease of native coronary artery without angina pectoris; F32.A Depression, unspecified; F17.210 Nicotine dependence, cigarettes, uncomplicated; Z68.35 Body mass index [BMI] 35.0-35.9, adult; Z79.82 Long term (current) use of aspirin; Z79.84 Long term (current) use of oral hypoglycemic drugs; Z79.891 Long term (current) use of opiate analgesic; Z79.899 Other long term (current) drug therapy; Z88.2 Allergy status to sulfonamides

== ENCOUNTER → 2021-12-28 | Outpatient (CLI) | payer MEDICARE, MEDICAID ==
[2021-12-28 11:19] LABS: BASO # 0.1 10^3/uL (0.0-0.2); BASO % 0.9 % (0.0-1.0); EOS # 0.2 10^3/uL (0.0-0.5); HEMATOCRIT 39.8 % (36.0-47.0); HEMOGLOBIN 11.6 g/dl (12.0-15.5); LYMPH # 1.8 10^3/uL (1.5-5.0); LYMPH % 27.8 % (24.0-44.0); MEAN CORPUSCULAR HEMOGLOBIN 23.2 pg (27.0-33.0); MEAN CORPUSCULAR HGB CONC 29.1 g/dl (32.0-36.5); MEAN CORPUSCULAR VOLUME 79.4 fl (80.0-96.0); MONO # 0.3 10^3/uL (0.0-0.8); MONO % 4.6 % (2.0-8.0); NEUTROPHILS # 4.2 10^3/uL (1.5-8.5); NEUTROPHILS % 63.2 % (36.0-66.0); PLATELET COUNT, AUTOMATED 275 10^3/uL (150-450); RED BLOOD COUNT 5.01 10^6/uL (4.00-5.40); WHITE BLOOD COUNT 6.6 10^3/uL (4.0-10.0)
[2021-12-28 11:49] LABS: HEMOGLOBIN A1c 7.7 %
[2021-12-28 12:03] LABS: CREATININE, URINE 89.6 MG/DL; MALB URINE SIEMENS 7.5 MG/L; MAU/CREAT RATIO 8.3 MCG/MG (0.0-30.0)
[2021-12-28 12:09] LABS: ALBUMIN 3.3 GM/DL (3.2-5.2); ALT/SGPT 18 U/L (12-78); BILIRUBIN,TOTAL 0.3 MG/DL (0.2-1.0); BLOOD UREA NITROGEN 9 MG/DL (7-18); CALCIUM LEVEL 9.3 MG/DL (8.8-10.2); CARBON DIOXIDE LEVEL 32 MEQ/L (21-32); CHLORIDE LEVEL 101 MEQ/L (98-107); GLOMERULAR FILTRATION RATE > 60.0 (>45); GLUCOSE, FASTING 125 MG/DL (70-100); POTASSIUM SERUM 4.9 MEQ/L (3.5-5.1); SODIUM LEVEL 137 MEQ/L (136-145); TOTAL PROTEIN 6.6 GM/DL (6.4-8.2)
== END ==
LOC: M LAB 10:03
PROVIDERS: ATTEND Family Medicine
DX: E11.65 Type 2 diabetes mellitus with hyperglycemia (principal); M25.561 Pain in right knee

== ENCOUNTER → 2021-12-28 | Outpatient (CLI) | payer MEDICARE, MEDICAID | LOC: M RAD 09:41 | PROVIDERS: ATTEND Orthopaedic Surgery Adult Reconstructive Orthopaedic Surgery | DX: M19.90 Unspecified osteoarthritis, unspecified site (principal) ==

== ENCOUNTER → 2022-01-06 | Outpatient (CLI) | payer MEDICARE, MEDICAID | LOC: M LABSMTC 11:42 | PROVIDERS: ATTEND Anesthesiology | DX: Z01.812 Encounter for preprocedural laboratory examination (principal); Z11.52 Encounter for screening for COVID-19 ==

== ENCOUNTER 2022-01-11 06:08 | Inpatient (IN) | payer MEDICARE, MEDICAID ==
[~2022-01-11] VITALS: Ht 162.6 cm; Wt 102.5 kg
[2022-01-11] VITALS (7 sets, daily range): BP systolic 113–151; BP diastolic 62–75
[~2022-01-11 06:08] MED LIST changes: +ACETAMINOPHEN 500 MG TAB PO ONE; +NAPROXEN 250 MG TAB PO ONE; +NS 1,000 ML IV ONE; +PREGABALIN 25 MG CAP (LYRICA) PO ONE; +ROPIVA 125MG/EPINEPH 0.25MG/CLONID 40MCG/KETOR 15MG IN NS 50ML SYRINGE PA ONE; +ceFAZolin SOD 2 GM in IV 1 EA IV ONE; +dexameTHASONE 4 MG/ML 1ML VIAL (J1100 PER 1MG) IV ONE
[2022-01-11] MEDS ORDERED: LR 1,000 ML IV SCH ×2 (07:10→09:35)
[2022-01-11] MEDS ORDERED: TRANEXAMIC ACID 100 MG/ML 10ML VIAL As Ordered ONE (07:11)
[2022-01-11] MEDS ORDERED: MIDAZOLAM INJ 2MG/2ML VIAL (J2250 PER 1MG) As Ordered ONE (07:11)
[2022-01-11] MEDS ORDERED: propofoL 200 MG/20 ML VIAL As Ordered ONE ×5 (07:11→10:31)
[2022-01-11] MEDS ORDERED: fentaNYL 100 MCG/2 ML INJECTION As Ordered ONE (07:11)
[2022-01-11] MEDS ORDERED: LIDOCAINE 2% 100MG/5ML SDV (FOR ANES.) As Ordered ONE (07:11)
[2022-01-11] MEDS ORDERED: PHENYLephrine 500MCG 5ML (100MCG/ML) SYRINGE As Ordered ONE (08:15)
[2022-01-11] MEDS ORDERED: fentaNYL 100 MCG/2 ML INJECTION IV PRN (09:35)
[2022-01-11] MEDS ORDERED: oxyCODONE 5MG TAB PO PRN ×2 (09:35→10:00)
[2022-01-11] MEDS ORDERED: MORPHINE 2 MG/ML 1ML VIAL IV PRN (09:35)
[2022-01-11] MEDS ORDERED: ONDANSETRON 4MG 2ML VIAL IV PRN ×2 (09:35→10:00)
[2022-01-11] MEDS ORDERED: METOCLOPRAMIDE INJ 10MG/2ML VIAL (J2765 PER 1) IV PRN (09:35)
[2022-01-11] MEDS ORDERED: traMADol 50 MG TAB PO PRN (10:00)
[2022-01-11] MEDS ORDERED: SENNA 8.6 MG TAB (SENOKOT) PO PRN (10:00)
[2022-01-11] MEDS ORDERED: CHLO125TA PO (10:40)
[2022-01-11] MEDS ORDERED: TRAZ-252 PO (10:40)
[2022-01-11] MEDS ORDERED: CHOL4POW26 PO (10:40)
[2022-01-11] MEDS ORDERED: HOME MED LIST COMPLETE! XX SCH (10:40)
[2022-01-11] MEDS ORDERED: GLUCOSE 4GM CHEW TABLET PO PRN (10:45)
[2022-01-11] MEDS ORDERED: GLUCAGON INJ 1MG VIAL SC PRN (10:45)
[2022-01-11] MEDS ORDERED: DEXTROSE 50% 50 ML SYRINGE IV PRN (10:45)
[2022-01-11] MEDS ORDERED: traZODone 50 MG TAB PO PRN (10:50)
[2022-01-11] MEDS ORDERED: ALBUTEROL SULFATE 2.5 MG/0.5 ML INH NEB SOLN NEB PRN (10:50)
[2022-01-11] MEDS: LR 1,000 ML IV SCH ×2 (11:26→18:24)
[2022-01-11] MEDS: DULoxetine 30MG CAPSULE (CYMBALTA) PO SCH (11:43)
[2022-01-11] MEDS: ACETAMINOPHEN TAB 650MG DOSE (2X325MG) PO SCH ×3 (11:45→23:53)
[2022-01-11] MEDS: INSULIN LISPRO (NovoLOG) PER UNIT SC SCH ×2 (13:15→17:53)
[2022-01-11] MEDS: buPROPion **SR TABLET** (ZYBAN) 150MG PO SCH ×2 (13:15→20:34)
[2022-01-11 15:30] LABS: HEMOGLOBIN A1c 7.6 % (4.0-6.0)
[2022-01-11 15:34] LABS: BLOOD UREA NITROGEN 12 MG/DL (9-23); CALCIUM LEVEL 8.1 MG/DL (8.3-10.6); CARBON DIOXIDE LEVEL 27 MMOL/L (20-31); CHLORIDE LEVEL 102 MMOL/L (98-107); CREATININE FOR GFR 0.85 MG/DL (0.55-1.30); GLOMERULAR FILTRATION RATE > 60.0 (>45); GLUCOSE, FASTING 165 MG/DL (74-106); POTASSIUM SERUM 4.5 MMOL/L (3.5-5.1); SODIUM LEVEL 138 MMOL/L (136-145)
[2022-01-11] MEDS: oxyCODONE 5MG TAB PO PRN ×2 (17:24→23:56)
[2022-01-11] MEDS: ceFAZolin SOD 2 GM in IV 1 EA IV SCH ×2 (17:52→23:53)
[2022-01-11 18:37] LABS: MEAN CORPUSCULAR HEMOGLOBIN 22.9 pg (27.0-33.0); MEAN CORPUSCULAR HGB CONC 29.4 g/dl (32.0-36.5); PLATELET COUNT, AUTOMATED 225 10^3/uL (150-450); RED BLOOD COUNT 4.36 10^6/uL (4.00-5.40); WHITE BLOOD COUNT 9.2 10^3/uL (4.0-10.0)
[2022-01-11] MEDS: ADVAIR HFA 230/21MCG INHALER INH SCH (20:00)
[2022-01-11] MEDS: DOCUSATE SODIUM 100MG CAPSULE PO SCH (20:33)
[2022-01-11] MEDS: NAPROXEN 250 MG TAB PO SCH (20:34)
[2022-01-11] MEDS: PREGABALIN 100 MG CAP (LYRICA) PO SCH (20:34)
[2022-01-11] MEDS: ASPIRIN 81MG ENTERIC TABLET PO SCH (20:34)
[2022-01-11] MEDS ORDERED: INSULIN LISPRO (NovoLOG) PER UNIT SC SCH (21:00)
[2022-01-11] MEDS ORDERED: PRAVASTATIN 20 MG TAB PO SCH (21:00)
[2022-01-12 02:27] VITALS: BP 140/67
[2022-01-12] MEDS: ACETAMINOPHEN TAB 650MG DOSE (2X325MG) PO SCH ×2 (05:31→12:15)
[2022-01-12] MEDS: oxyCODONE 5MG TAB PO PRN ×3 (05:32→14:31)
[2022-01-12 05:37] VITALS: BP 149/76
[2022-01-12 06:08] LABS: BASO % 0.4 % (0.0-1.0); EOS # 0.1 10^3/uL (0.0-0.5); EOS % 1.1 % (0.0-3.0); HEMATOCRIT 34.7 % (36.0-47.0); HEMOGLOBIN 10.4 g/dl (12.0-15.5); LYMPH % 12.5 % (24.0-44.0); MEAN CORPUSCULAR HEMOGLOBIN 23.3 pg (27.0-33.0); MEAN CORPUSCULAR VOLUME 77.8 fl (80.0-96.0); MONO # 0.5 10^3/uL (0.0-0.8); MONO % 6.4 % (2.0-8.0); NEUTROPHILS # 6.6 10^3/uL (1.5-8.5); NEUTROPHILS % 79.1 % (36.0-66.0); PLATELET COUNT, AUTOMATED 228 10^3/uL (150-450); RED BLOOD COUNT 4.46 10^6/uL (4.00-5.40); WHITE BLOOD COUNT 8.3 10^3/uL (4.0-10.0)
[2022-01-12 06:49] LABS: BLOOD UREA NITROGEN 13 MG/DL (9-23); CALCIUM LEVEL 8.4 MG/DL (8.3-10.6); CARBON DIOXIDE LEVEL 27 MMOL/L (20-31); CHLORIDE LEVEL 102 MMOL/L (98-107); CREATININE FOR GFR 0.84 MG/DL (0.55-1.30); GLOMERULAR FILTRATION RATE > 60.0 (>45); GLUCOSE, FASTING 167 MG/DL (74-106); MAGNESIUM LEVEL 1.4 MG/DL (1.8-2.4); PHOSPHORUS LEVEL 4.3 MG/DL (2.4-5.1); POTASSIUM SERUM 4.4 MMOL/L (3.5-5.1); SODIUM LEVEL 138 MMOL/L (136-145)
[2022-01-12] MEDS: ADVAIR HFA 230/21MCG INHALER INH SCH (07:10)
[2022-01-12] MEDS: INSULIN LISPRO (NovoLOG) PER UNIT SC SCH ×2 (07:56→13:02)
[2022-01-12] MEDS ORDERED: MAGNESIUM OXIDE 400MG TAB (MAG-OX) PO ONE (08:00)
[2022-01-12] MEDS ORDERED: TIOTROPIUM INHALER/CAPSULE (SPIRIVA) INH SCH (08:00)
[2022-01-12] MEDS: DULoxetine 30MG CAPSULE (CYMBALTA) PO SCH (08:48)
[2022-01-12] MEDS: buPROPion **SR TABLET** (ZYBAN) 150MG PO SCH (08:48)
[2022-01-12] MEDS: DOCUSATE SODIUM 100MG CAPSULE PO SCH (08:49)
[2022-01-12] MEDS: ASPIRIN 81MG ENTERIC TABLET PO SCH (08:49)
[2022-01-12] MEDS: PREGABALIN 100 MG CAP (LYRICA) PO SCH (08:50)
[2022-01-12] MEDS: NAPROXEN 250 MG TAB PO SCH (08:50)
[2022-01-12] MEDS ORDERED: CHLORTHALIDONE 25 MG TAB PO SCH (09:00)
[2022-01-12] MEDS ORDERED: ASCORBIC ACID 500 MG TAB PO SCH (09:00)
[2022-01-12] MEDS ORDERED: FERROUS SULFATE 325MG TAB PO SCH (09:00)
[2022-01-12 10:00] VITALS: BP 158/69
[2022-01-12 10:26] VITALS: BP 123/57
[2022-01-12 10:45] VITALS: BP 159/76
[2022-01-12] MEDS ORDERED: CHOLESTYRAMINE 4 GM PWD PKT PO SCH (12:00)
[2022-01-12] MEDS ORDERED: ACET1TAB55 PO (12:44)
[2022-01-12] MEDS ORDERED: COLA100C5 PO (12:44)
[2022-01-12] MEDS ORDERED: OXYC-517 PO (12:44)
[2022-01-12] MEDS ORDERED: MAGN200T10 PO (13:57)
== END 2022-01-12 14:35 | disposition home or self-care (01) | DRG 470 ==
LOC: M SDC 06:08 → M ED INP 10:39 → M MS5PR 11:05
PROVIDERS: ADMIT Internal Medicine; ATTEND Orthopaedic Surgery Adult Reconstructive Orthopaedic Surgery
PROC: 0SNC4ZZ Release Right Knee Joint, Percutaneous Endoscopic Approach (ICD-10-PCS; 2022-01-11)
PROC: 8E0Y4CZ Robotic Assisted Procedure of Lower Extremity, Percutaneous Endoscopic Approach (ICD-10-PCS; 2022-01-11)
PROC: 0SRC0JA Replacement of Right Knee Joint with Synthetic Substitute, Uncemented, Open Approach (ICD-10-PCS; principal; 2022-01-11 07:30)
DX: M17.11 Unilateral primary osteoarthritis, right knee (principal); I10 Essential (primary) hypertension; E78.5 Hyperlipidemia, unspecified; E11.9 Type 2 diabetes mellitus without complications; F32.A Depression, unspecified; F41.9 Anxiety disorder, unspecified; F17.210 Nicotine dependence, cigarettes, uncomplicated; J44.9 Chronic obstructive pulmonary disease, unspecified; Z79.82 Long term (current) use of aspirin; Z79.899 Other long term (current) drug therapy; Z88.2 Allergy status to sulfonamides; Z88.8 Allergy status to other drugs, medicaments and biological substances

== ENCOUNTER → 2022-01-13 | Outpatient (REF) | payer MEDICARE, MEDICAID ==
[~2022-01-13] MED LIST changes: +ACET1TAB55 PO; -ACETAMINOPHEN 500 MG TAB PO ONE; +COLA100C5 PO; +MAGN200T10 PO; -NAPROXEN 250 MG TAB PO ONE; -NS 1,000 ML IV ONE; +OXYC-517 PO; -PREGABALIN 25 MG CAP (LYRICA) PO ONE; -ROPIVA 125MG/EPINEPH 0.25MG/CLONID 40MCG/KETOR 15MG IN NS 50ML SYRINGE PA ONE; +TRAZ-252 PO; -ceFAZolin SOD 2 GM in IV 1 EA IV ONE; -dexameTHASONE 4 MG/ML 1ML VIAL (J1100 PER 1MG) IV ONE
[2022-01-13 14:56] LABS: BASO % 0.4 % (0.0-1.0); EOS # 0.2 10^3/uL (0.0-0.5); EOS % 1.8 % (0.0-3.0); HEMATOCRIT 33.7 % (36.0-47.0); LYMPH # 1.4 10^3/uL (1.5-5.0); MEAN CORPUSCULAR HGB CONC 29.7 g/dl (32.0-36.5); MEAN CORPUSCULAR VOLUME 77.5 fl (80.0-96.0); MONO # 0.6 10^3/uL (0.0-0.8); MONO % 5.8 % (2.0-8.0); NEUTROPHILS # 7.4 10^3/uL (1.5-8.5); NEUTROPHILS % 76.6 % (36.0-66.0); PLATELET COUNT, AUTOMATED 238 10^3/uL (150-450); RED BLOOD COUNT 4.35 10^6/uL (4.00-5.40); WHITE BLOOD COUNT 9.6 10^3/uL (4.0-10.0)
== END ==
LOC: M SHH 14:19
PROVIDERS: ATTEND Orthopaedic Surgery Adult Reconstructive Orthopaedic Surgery
DX: Z01.818 Encounter for other preprocedural examination (principal)

== ENCOUNTER → 2022-01-24 | Outpatient (CLI) | payer MEDICARE, MEDICAID | LOC: M SOG 08:00 | PROVIDERS: ATTEND Orthopaedic Surgery Adult Reconstructive Orthopaedic Surgery | DX: M17.11 Unilateral primary osteoarthritis, right knee (principal) ==

== ENCOUNTER → 2022-03-07 | Outpatient (CLI) | payer OTHER, MEDICAID | LOC: M PAIN 10:15 | PROVIDERS: ATTEND Nurse Practitioner Family | DX: M79.18 Myalgia, other site (principal); M51.16 Intervertebral disc disorders with radiculopathy, lumbar region; M25.512 Pain in left shoulder; M25.562 Pain in left knee; E11.9 Type 2 diabetes mellitus without complications; J98.4 Other disorders of lung; K21.9 Gastro-esophageal reflux disease without esophagitis; M19.90 Unspecified osteoarthritis, unspecified site; M54.2 Cervicalgia; E78.5 Hyperlipidemia, unspecified; I10 Essential (primary) hypertension; G25.81 Restless legs syndrome; M79.7 Fibromyalgia; L40.50 Arthropathic psoriasis, unspecified; E66.9 Obesity, unspecified; D64.9 Anemia, unspecified; G47.33 Obstructive sleep apnea (adult) (pediatric); M51.26 Other intervertebral disc displacement, lumbar region; J30.1 Allergic rhinitis due to pollen; I25.10 Atherosclerotic heart disease of native coronary artery without angina pectoris; F32.A Depression, unspecified; F17.210 Nicotine dependence, cigarettes, uncomplicated; Z68.35 Body mass index [BMI] 35.0-35.9, adult; Z79.82 Long term (current) use of aspirin; Z79.84 Long term (current) use of oral hypoglycemic drugs; Z79.891 Long term (current) use of opiate analgesic; Z79.899 Other long term (current) drug therapy; Z88.2 Allergy status to sulfonamides ==

== ENCOUNTER → 2022-04-25 | Outpatient (CLI) | payer OTHER, MEDICAID | LOC: M PAIN 10:00 | PROVIDERS: ATTEND Nurse Practitioner Family | DX: M25.512 Pain in left shoulder (principal); M25.562 Pain in left knee; G89.29 Other chronic pain; E11.9 Type 2 diabetes mellitus without complications; K21.9 Gastro-esophageal reflux disease without esophagitis; I10 Essential (primary) hypertension; G25.81 Restless legs syndrome; M79.7 Fibromyalgia; G47.33 Obstructive sleep apnea (adult) (pediatric); F17.210 Nicotine dependence, cigarettes, uncomplicated; Z86.59 Personal history of other mental and behavioral disorders; Z88.1 Allergy status to other antibiotic agents; Z79.51 Long term (current) use of inhaled steroids; Z79.82 Long term (current) use of aspirin; Z79.84 Long term (current) use of oral hypoglycemic drugs; Z79.899 Other long term (current) drug therapy ==

== ENCOUNTER → 2022-05-05 | Outpatient (CLI) | payer OTHER, MEDICAID | LOC: M SOG 07:56 | PROVIDERS: ATTEND Orthopaedic Surgery | DX: M51.36 Other intervertebral disc degeneration, lumbar region (principal) ==

== ENCOUNTER → 2022-05-20 | Outpatient (CLI) | payer OTHER, MEDICAID ==
[2022-05-20 14:18] LABS: BASO # 0.1 10^3/uL (0.0-0.2); BASO % 0.6 % (0.0-1.0); EOS # 0.2 10^3/uL (0.0-0.5); EOS % 2.1 % (0.0-3.0); HEMATOCRIT 36.3 % (36.0-47.0); HEMOGLOBIN 10.5 g/dl (12.0-15.5); LYMPH # 1.6 10^3/uL (1.5-5.0); MEAN CORPUSCULAR HEMOGLOBIN 22.6 pg (27.0-33.0); MEAN CORPUSCULAR HGB CONC 28.9 g/dl (32.0-36.5); MEAN CORPUSCULAR VOLUME 78.2 fl (80.0-96.0); MONO # 0.4 10^3/uL (0.0-0.8); MONO % 4.6 % (2.0-8.0); NEUTROPHILS # 6.1 10^3/uL (1.5-8.5); NEUTROPHILS % 73.2 % (36.0-66.0); PLATELET COUNT, AUTOMATED 268 10^3/uL (150-450); RED BLOOD COUNT 4.64 10^6/uL (4.00-5.40); WHITE BLOOD COUNT 8.4 10^3/uL (4.0-10.0)
[2022-05-20 14:39] LABS: ERYTHROCYTE SEDIMENTATION RATE 25 mm/hr (0-30)
== END ==
LOC: M PLALAB 10:07
PROVIDERS: ATTEND Orthopaedic Surgery Adult Reconstructive Orthopaedic Surgery
DX: M25.561 Pain in right knee (principal)

== ENCOUNTER → 2022-05-20 | Outpatient (CLI) | payer OTHER, MEDICAID | LOC: M SOG 07:53 | PROVIDERS: ATTEND Orthopaedic Surgery Adult Reconstructive Orthopaedic Surgery | DX: Z96.651 Presence of right artificial knee joint (principal) ==

== ENCOUNTER 2022-05-25 09:23 | Outpatient (RCR) | payer OTHER, MEDICAID | END 2022-05-27 | LOC: M PT 09:23 | PROVIDERS: ATTEND Orthopaedic Surgery Adult Reconstructive Orthopaedic Surgery | DX: M62.81 Muscle weakness (generalized) (principal); Z96.651 Presence of right artificial knee joint ==

== ENCOUNTER → 2022-05-25 | Outpatient (CLI) | payer OTHER, MEDICAID, MEDICARE | LOC: M SOG 15:43 | PROVIDERS: ATTEND Orthopaedic Surgery Adult Reconstructive Orthopaedic Surgery | DX: M25.551 Pain in right hip (principal) ==

== ENCOUNTER → 2022-05-26 | Outpatient (CLI) | payer OTHER, MEDICAID | LOC: M PLAIMG 12:17 | PROVIDERS: ATTEND Orthopaedic Surgery Adult Reconstructive Orthopaedic Surgery | DX: M25.561 Pain in right knee (principal) ==

== ENCOUNTER 2022-06-13 11:00 | Outpatient (RCR) | payer OTHER, MEDICAID | END 2022-06-26 | LOC: M PT 11:00 | PROVIDERS: ATTEND Orthopaedic Surgery Adult Reconstructive Orthopaedic Surgery | DX: Z96.651 Presence of right artificial knee joint (principal) ==

== ENCOUNTER → 2022-06-16 | Outpatient (CLI) | payer OTHER, MEDICAID | LOC: M RAD 08:14 | PROVIDERS: ATTEND Internal Medicine Pulmonary Disease | DX: Z12.2 Encounter for screening for malignant neoplasm of respiratory organs (principal); F17.218 Nicotine dependence, cigarettes, with other nicotine-induced disorders ==

== ENCOUNTER → 2022-07-01 | Outpatient (CLI) | payer OTHER, MEDICAID | LOC: M PLAIMG 12:33 | PROVIDERS: ATTEND Orthopaedic Surgery Adult Reconstructive Orthopaedic Surgery | DX: M16.31 Unilateral osteoarthritis resulting from hip dysplasia, right hip (principal) ==

== ENCOUNTER → 2022-07-05 | Outpatient (CLI) | payer OTHER, MEDICAID | LOC: M PAIN 14:45 | PROVIDERS: ATTEND Nurse Practitioner Family | DX: M79.10 Myalgia, unspecified site (principal); M51.16 Intervertebral disc disorders with radiculopathy, lumbar region; E11.9 Type 2 diabetes mellitus without complications; K21.9 Gastro-esophageal reflux disease without esophagitis; E78.5 Hyperlipidemia, unspecified; I10 Essential (primary) hypertension; G25.81 Restless legs syndrome; M79.7 Fibromyalgia; L40.50 Arthropathic psoriasis, unspecified; G47.33 Obstructive sleep apnea (adult) (pediatric); J30.1 Allergic rhinitis due to pollen; I25.10 Atherosclerotic heart disease of native coronary artery without angina pectoris; F32.A Depression, unspecified; E66.9 Obesity, unspecified; F17.210 Nicotine dependence, cigarettes, uncomplicated; Z79.1 Long term (current) use of non-steroidal anti-inflammatories (NSAID); Z79.82 Long term (current) use of aspirin; Z79.84 Long term (current) use of oral hypoglycemic drugs; Z79.891 Long term (current) use of opiate analgesic; Z79.899 Other long term (current) drug therapy; Z88.2 Allergy status to sulfonamides; Z68.36 Body mass index [BMI] 36.0-36.9, adult ==

== ENCOUNTER → 2022-07-19 | Outpatient (CLI) | payer OTHER, MEDICAID | LOC: M PAIN 10:00 | PROVIDERS: ATTEND Nurse Practitioner Family | DX: M25.562 Pain in left knee (principal); E11.9 Type 2 diabetes mellitus without complications; K21.9 Gastro-esophageal reflux disease without esophagitis; M54.2 Cervicalgia; E78.5 Hyperlipidemia, unspecified; I10 Essential (primary) hypertension; G25.81 Restless legs syndrome; M79.7 Fibromyalgia; E66.9 Obesity, unspecified; I25.10 Atherosclerotic heart disease of native coronary artery without angina pectoris; F32.A Depression, unspecified; Z68.34 Body mass index [BMI] 34.0-34.9, adult; F17.210 Nicotine dependence, cigarettes, uncomplicated; Z79.1 Long term (current) use of non-steroidal anti-inflammatories (NSAID); Z79.82 Long term (current) use of aspirin; Z79.84 Long term (current) use of oral hypoglycemic drugs; Z79.891 Long term (current) use of opiate analgesic; Z79.899 Other long term (current) drug therapy; Z88.2 Allergy status to sulfonamides; J30.1 Allergic rhinitis due to pollen; M25.511 Pain in right shoulder ==

== ENCOUNTER 2022-08-08 06:26 | Emergency (ER) | payer OTHER, MEDICAID ==
[~2022-08-08] VITALS: Ht 162.6 cm; Wt 95.0 kg
[2022-08-08] MEDS ORDERED: MORPHINE 4 MG/ML 1ML VIAL IV ONE (07:15)
[2022-08-08] MEDS ORDERED: NS 1,000 ML IV ONE (07:15)
[2022-08-08 07:22] LABS: BASO # 0.1 10^3/uL (0.0-0.2); BASO % 0.5 % (0.0-1.0); EOS # 0.3 10^3/uL (0.0-0.5); EOS % 2.4 % (0.0-3.0); HEMATOCRIT 33.4 % (36.0-47.0); HEMOGLOBIN 9.9 g/dl (12.0-15.5); LYMPH # 2.3 10^3/uL (1.5-5.0); LYMPH % 22.7 % (24.0-44.0); MEAN CORPUSCULAR HEMOGLOBIN 21.7 pg (27.0-33.0); MEAN CORPUSCULAR HGB CONC 29.6 g/dl (32.0-36.5); MEAN CORPUSCULAR VOLUME 73.1 fl (80.0-96.0); MONO # 0.5 10^3/uL (0.0-0.8); MONO % 5.2 % (2.0-8.0); NEUTROPHILS # 7.1 10^3/uL (1.5-8.5); NEUTROPHILS % 68.8 % (36.0-66.0); PLATELET COUNT, AUTOMATED 224 10^3/uL (150-450); RED BLOOD COUNT 4.57 10^6/uL (4.00-5.40); WHITE BLOOD COUNT 10.3 10^3/uL (4.0-10.0)
[2022-08-08 07:50] LABS: CK-MB VALUE MASS < 1.0 NG/ML (<3.6); ETHYL ALCOHOL (ETHANOL) 0.004 % (0.000-0.010)
[2022-08-08 07:54] LABS: FREE THYROXINE INDEX 3.4 % (1.3-4.8); T UPTAKE 40.7 % (22.5-37.0); THYROXINE (T4) 8.3 UG/DL (4.5-10.9)
[2022-08-08 07:59] LABS: AMPHETAMINES LEVEL URINE NEGATIVE (NEGATIVE); BARBITURATES URINE NEGATIVE (NEGATIVE); BENZODIAZEPINES URINE NEGATIVE (NEGATIVE); COCAINE METABOLITE URINE NEGATIVE (NEGATIVE); CPK CREATINE PHOSPHOKINASE 98 U/L (34-145); MB/CK RELATIVE INDEX 1.02 (< OR =4); METHADONE URINE NEGATIVE (NEGATIVE)
[2022-08-08 08:00] LABS: CANNABINOIDS URINE NEGATIVE (NEGATIVE); PHENCYCLIDINE URINE NEGATIVE (NEGATIVE)
[2022-08-08 08:07] LABS: OPIATES URINE POSITIVE (NEGATIVE)
[2022-08-08] MEDS ORDERED: METOPROLOL TART 25 MG TABLET PO ONE (08:55)
[2022-08-08 09:04] VITALS: BP 179/81
[2022-08-08 09:11] VITALS: BP 179/81; TEMP 98.2; O2SAT 92
== END 2022-08-08 09:23 | disposition home or self-care (01) ==
LOC: M ED 06:26 → EDBD 06:26 → M ED 09:23
DX: M25.551 Pain in right hip (principal); E11.9 Type 2 diabetes mellitus without complications; I10 Essential (primary) hypertension; J44.9 Chronic obstructive pulmonary disease, unspecified; K21.9 Gastro-esophageal reflux disease without esophagitis; R51.9 Headache, unspecified; M79.7 Fibromyalgia; I31.8 Other specified diseases of pericardium; Z96.652 Presence of left artificial knee joint; Z88.2 Allergy status to sulfonamides; Z88.8 Allergy status to other drugs, medicaments and biological substances; Z79.899 Other long term (current) drug therapy; Z79.82 Long term (current) use of aspirin; Z79.51 Long term (current) use of inhaled steroids

== ENCOUNTER → 2022-08-15 | Outpatient (CLI) | payer OTHER, MEDICAID | LOC: M RAD 11:08 | PROVIDERS: ATTEND Internal Medicine Cardiovascular Disease | DX: E78.5 Hyperlipidemia, unspecified (principal); E11.51 Type 2 diabetes mellitus with diabetic peripheral angiopathy without gangrene; I73.9 Peripheral vascular disease, unspecified ==

== ENCOUNTER → 2022-08-31 | Outpatient (CLI) | payer OTHER, MEDICAID ==
[2022-08-31 08:47] LABS: BASO # 0.1 10^3/uL (0.0-0.2); BASO % 0.7 % (0.0-1.0); EOS # 0.2 10^3/uL (0.0-0.5); HEMATOCRIT 35.2 % (36.0-47.0); LYMPH # 2.5 10^3/uL (1.5-5.0); LYMPH % 24.8 % (24.0-44.0); MEAN CORPUSCULAR HEMOGLOBIN 20.7 pg (27.0-33.0); MEAN CORPUSCULAR HGB CONC 28.4 g/dl (32.0-36.5); MONO # 0.5 10^3/uL (0.0-0.8); MONO % 5.2 % (2.0-8.0); NEUTROPHILS # 6.7 10^3/uL (1.5-8.5); NEUTROPHILS % 67.1 % (36.0-66.0); PLATELET COUNT, AUTOMATED 232 10^3/uL (150-450); RED BLOOD COUNT 4.82 10^6/uL (4.00-5.40)
[2022-08-31 09:12] LABS: ALBUMIN 3.3 G/DL (3.2-5.2); ALKALINE PHOSPHATASE 73 U/L (46-116); ALT/SGPT 12 U/L (7.0-40); AST/SGOT < 8 U/L (<34); BILIRUBIN,TOTAL 0.3 MG/DL (0.3-1.2); BLOOD UREA NITROGEN 9 MG/DL (9-23); CALCIUM LEVEL 8.7 MG/DL (8.3-10.6); CARBON DIOXIDE LEVEL 30 MMOL/L (20-31); CHLORIDE LEVEL 103 MMOL/L (98-107); CREATININE FOR GFR 0.66 MG/DL (0.55-1.30); FREE T4 0.92 NG/DL (0.89-1.76); GLOMERULAR FILTRATION RATE > 60.0 (>45); GLUCOSE, FASTING 136 MG/DL (74-106); SODIUM LEVEL 140 MMOL/L (136-145); THYROID STIMULATING HORMONE 2.989 uIU/ML (0.55-4.78); TOTAL PROTEIN 5.9 G/DL (5.7-8.2)
[2022-08-31 09:19] LABS: CREATININE, URINE 64.6 MG/DL; MAU/CREAT RATIO 27.8 MCG/MG (0.0-30.0)
[2022-08-31 09:25] LABS: HEMOGLOBIN A1c 7.6 % (4.0-6.0)
== END ==
LOC: M LAB 08:01
PROVIDERS: ATTEND Family Medicine
DX: R61 Generalized hyperhidrosis (principal); E11.9 Type 2 diabetes mellitus without complications; Z51.81 Encounter for therapeutic drug level monitoring; Z79.899 Other long term (current) drug therapy

== ENCOUNTER → 2022-08-31 | Outpatient (CLI) | payer OTHER, MEDICAID ==
[2022-08-31 08:48] LABS: BASO # 0.1 10^3/uL (0.0-0.2); BASO % 0.6 % (0.0-1.0); EOS # 0.2 10^3/uL (0.0-0.5); EOS % 1.5 % (0.0-3.0); HEMATOCRIT 35.4 % (36.0-47.0); HEMOGLOBIN 10.1 g/dl (12.0-15.5); LYMPH # 2.8 10^3/uL (1.5-5.0); LYMPH % 28.1 % (24.0-44.0); MEAN CORPUSCULAR HGB CONC 28.5 g/dl (32.0-36.5); MEAN CORPUSCULAR VOLUME 73.4 fl (80.0-96.0); MONO # 0.5 10^3/uL (0.0-0.8); NEUTROPHILS # 6.4 10^3/uL (1.5-8.5); NEUTROPHILS % 64.4 % (36.0-66.0); RED BLOOD COUNT 4.82 10^6/uL (4.00-5.40)
[2022-08-31 08:49] LABS: PLATELET COUNT, AUTOMATED 259 10^3/uL (150-450)
[2022-08-31 09:00] LABS: ERYTHROCYTE SEDIMENTATION RATE 19 mm/hr (0-30)
[2022-08-31 09:13] LABS: C REACTIVE PROTEIN QUANTITATIV < 0.40 MG/DL (<1.0)
[2022-08-31 09:14] LABS: ALBUMIN 3.3 G/DL (3.2-5.2); ALKALINE PHOSPHATASE 71 U/L (46-116); ALT/SGPT < 9 U/L (7.0-40); AST/SGOT < 8 U/L (<34); BILIRUBIN,TOTAL 0.3 MG/DL (0.3-1.2); BLOOD UREA NITROGEN 8 MG/DL (9-23); CALCIUM LEVEL 8.6 MG/DL (8.3-10.6); CARBON DIOXIDE LEVEL 29 MMOL/L (20-31); CHLORIDE LEVEL 103 MMOL/L (98-107); CREATININE FOR GFR 0.64 MG/DL (0.55-1.30); GLOMERULAR FILTRATION RATE > 60.0 (>45); GLUCOSE, FASTING 135 MG/DL (74-106); SODIUM LEVEL 140 MMOL/L (136-145); TOTAL PROTEIN 5.9 G/DL (5.7-8.2)
== END ==
LOC: M LAB 08:03
PROVIDERS: ATTEND Physician Assistant
DX: Z51.81 Encounter for therapeutic drug level monitoring (principal); Z79.899 Other long term (current) drug therapy

== ENCOUNTER → 2022-09-07 | Outpatient (CLI) | payer OTHER, MEDICAID ==
[~2022-09-07] MED LIST changes: -ROPI0.5T3 PO; +ROPI0.5T33 PO
== END ==
LOC: M RAD 07:40
PROVIDERS: ATTEND Internal Medicine Pulmonary Disease
DX: Z01.811 Encounter for preprocedural respiratory examination (principal); J44.9 Chronic obstructive pulmonary disease, unspecified; F17.218 Nicotine dependence, cigarettes, with other nicotine-induced disorders

== ENCOUNTER → 2022-09-13 | Outpatient (CLI) | payer OTHER, MEDICAID | LOC: M RAD 14:33 | PROVIDERS: ATTEND Family Medicine | DX: M79.604 Pain in right leg (principal); Z96.651 Presence of right artificial knee joint ==

== ENCOUNTER → 2022-10-27 | Outpatient (CLI) | payer OTHER, MEDICAID ==
[~2022-10-27] MED LIST changes: +EZET10TA58 PO; -PREG200C PO; +PREG200C2 PO; -ZETI10TA16 PO
== END ==
LOC: M PAIN 11:45
PROVIDERS: ATTEND Nurse Practitioner Family
DX: M25.512 Pain in left shoulder (principal); M25.562 Pain in left knee; G89.29 Other chronic pain; E11.9 Type 2 diabetes mellitus without complications; G47.33 Obstructive sleep apnea (adult) (pediatric); K21.9 Gastro-esophageal reflux disease without esophagitis; I10 Essential (primary) hypertension; G25.81 Restless legs syndrome; M79.7 Fibromyalgia; F17.210 Nicotine dependence, cigarettes, uncomplicated; Z86.59 Personal history of other mental and behavioral disorders; Z96.641 Presence of right artificial hip joint; Z96.653 Presence of artificial knee joint, bilateral; Z88.1 Allergy status to other antibiotic agents; Z79.82 Long term (current) use of aspirin; Z79.84 Long term (current) use of oral hypoglycemic drugs; Z79.899 Other long term (current) drug therapy

== ENCOUNTER → 2022-11-01 | Outpatient (CLI) | payer OTHER, MEDICAID ==
[~2022-11-01] MED LIST changes: -EZET10TA58 PO; +PREG200C PO; -PREG200C2 PO; +ZETI10TA16 PO
[2022-11-01 12:45] LABS: BASO # 0.1 10^3/uL (0.0-0.2); EOS # 0.3 10^3/uL (0.0-0.5); EOS % 3.4 % (0.0-3.0); HEMOGLOBIN 9.1 g/dl (12.0-15.5); LYMPH % 27.7 % (24.0-44.0); MEAN CORPUSCULAR HEMOGLOBIN 21.4 pg (27.0-33.0); MEAN CORPUSCULAR HGB CONC 28.4 g/dl (32.0-36.5); MEAN CORPUSCULAR VOLUME 75.1 fl (80.0-96.0); MONO # 0.4 10^3/uL (0.0-0.8); MONO % 5.3 % (2.0-8.0); NEUTROPHILS # 4.5 10^3/uL (1.5-8.5); NEUTROPHILS % 62.3 % (36.0-66.0); PLATELET COUNT, AUTOMATED 293 10^3/uL (150-450); RED BLOOD COUNT 4.26 10^6/uL (4.00-5.40); WHITE BLOOD COUNT 7.3 10^3/uL (4.0-10.0)
[2022-11-01 13:08] LABS: ALBUMIN 2.8 G/DL (3.2-5.2); ALKALINE PHOSPHATASE 84 U/L (46-116); ALT/SGPT < 9 U/L (7.0-40); AST/SGOT < 8 U/L (<34); BILIRUBIN,TOTAL 0.3 MG/DL (0.3-1.2); BLOOD UREA NITROGEN 10 MG/DL (9-23); CALCIUM LEVEL 8.4 MG/DL (8.3-10.6); CARBON DIOXIDE LEVEL 30 MMOL/L (20-31); CHLORIDE LEVEL 104 MMOL/L (98-107); CREATININE FOR GFR 0.63 MG/DL (0.55-1.30); GLOMERULAR FILTRATION RATE > 60.0 (>45); GLUCOSE, FASTING 88 MG/DL (74-106); IRON (FE) 18 UG/DL (50-170); PERCENT SATURATION 5.1 % (13.2-45.0); POTASSIUM SERUM 4.5 MMOL/L (3.5-5.1); SODIUM LEVEL 141 MMOL/L (136-145); TOTAL IRON BINDING CAPACITY 355 UG/DL (250-425); TOTAL PROTEIN 5.7 G/DL (5.7-8.2)
[2022-11-01 13:10] LABS: FERRITIN 14.5 NG/ML (7.3-270.7)
== END ==
LOC: M LAB 12:15
PROVIDERS: ATTEND Family Medicine
DX: D64.9 Anemia, unspecified (principal)

== ENCOUNTER → 2023-01-10 | Outpatient (CLI) | payer OTHER, MEDICAID ==
[~2023-01-10] MED LIST changes: +EZET10TA58 PO; -PREG200C PO; +PREG200C2 PO; -ZETI10TA16 PO
[2023-01-10 09:08] LABS: HEMATOCRIT 35.3 % (36.0-47.0); HEMOGLOBIN 9.8 g/dl (12.0-15.5); MEAN CORPUSCULAR HEMOGLOBIN 20.7 pg (27.0-33.0); MEAN CORPUSCULAR HGB CONC 27.8 g/dl (32.0-36.5); MEAN CORPUSCULAR VOLUME 74.5 fl (80.0-96.0); PLATELET COUNT, AUTOMATED 246 10^3/uL (150-450); RED BLOOD COUNT 4.74 10^6/uL (4.00-5.40); WHITE BLOOD COUNT 6.7 10^3/uL (4.0-10.0)
[2023-01-10 09:21] LABS: BLOOD UREA NITROGEN 7 MG/DL (9-23); CREATININE FOR GFR 0.63 MG/DL (0.55-1.30); GLOMERULAR FILTRATION RATE > 60.0 (>45)
== END ==
LOC: M LAB 08:28
PROVIDERS: ATTEND Internal Medicine Pulmonary Disease
DX: G47.33 Obstructive sleep apnea (adult) (pediatric) (principal)

== ENCOUNTER → 2023-01-10 | Outpatient (CLI) | payer OTHER, MEDICAID ==
[~2023-01-10] MED LIST changes: +ISOVUE-370 76% 100ML VIAL ONE
== END ==
LOC: M PLAIMG 12:23
PROVIDERS: ATTEND Internal Medicine Pulmonary Disease
DX: R06.02 Shortness of breath (principal)

== ENCOUNTER → 2023-01-26 | Outpatient (CLI) | payer OTHER, MEDICAID ==
[~2023-01-26] MED LIST changes: +ETAN50PE SQ; +FERR325T3 PO; +FLUTISP; +FURO40TA2 PO; +IRBE150T7 PO; -ISOVUE-370 76% 100ML VIAL ONE
== END ==
LOC: M PAIN 16:00
PROVIDERS: ATTEND Nurse Practitioner Family
DX: M25.562 Pain in left knee (principal); G89.29 Other chronic pain; M25.512 Pain in left shoulder; E11.9 Type 2 diabetes mellitus without complications; J98.4 Other disorders of lung; K21.9 Gastro-esophageal reflux disease without esophagitis; E78.5 Hyperlipidemia, unspecified; M19.90 Unspecified osteoarthritis, unspecified site; M54.2 Cervicalgia; I10 Essential (primary) hypertension; G25.81 Restless legs syndrome; M79.7 Fibromyalgia; L40.50 Arthropathic psoriasis, unspecified; D64.9 Anemia, unspecified; F32.A Depression, unspecified; M51.26 Other intervertebral disc displacement, lumbar region; I25.10 Atherosclerotic heart disease of native coronary artery without angina pectoris; G47.33 Obstructive sleep apnea (adult) (pediatric); F17.210 Nicotine dependence, cigarettes, uncomplicated; E66.9 Obesity, unspecified; Z68.33 Body mass index [BMI] 33.0-33.9, adult

== ENCOUNTER → 2023-01-28 | Outpatient (CLI) | payer OTHER, MEDICAID ==
[~2023-01-28] MED LIST changes: -ETAN50PE SQ; -FERR325T3 PO; -FLUTISP; -FURO40TA2 PO; -IRBE150T7 PO
[2023-01-28 09:27] LABS: BASO # 0.1 10^3/uL (0.0-0.2); BASO % 0.6 % (0.0-1.0); EOS # 0.4 10^3/uL (0.0-0.5); HEMATOCRIT 35.9 % (36.0-47.0); LYMPH # 1.8 10^3/uL (1.5-5.0); LYMPH % 21.9 % (24.0-44.0); MEAN CORPUSCULAR HGB CONC 27.9 g/dl (32.0-36.5); MEAN CORPUSCULAR VOLUME 75.3 fl (80.0-96.0); MONO # 0.4 10^3/uL (0.0-0.8); MONO % 4.5 % (2.0-8.0); NEUTROPHILS # 5.5 10^3/uL (1.5-8.5); NEUTROPHILS % 67.8 % (36.0-66.0); PLATELET COUNT, AUTOMATED 222 10^3/uL (150-450); RED BLOOD COUNT 4.77 10^6/uL (4.00-5.40); WHITE BLOOD COUNT 8.2 10^3/uL (4.0-10.0)
[2023-01-28 09:47] LABS: ERYTHROCYTE SEDIMENTATION RATE 20 mm/hr (0-30)
[2023-01-28 09:53] LABS: C REACTIVE PROTEIN QUANTITATIV < 0.40 MG/DL (<1.0); IRON (FE) 17 UG/DL (50-170); PERCENT SATURATION 4.8 % (13.2-45.0); TOTAL IRON BINDING CAPACITY 357 UG/DL (250-425)
[2023-01-28 09:54] LABS: ALBUMIN 2.9 G/DL (3.2-5.2); ALKALINE PHOSPHATASE 84 U/L (46-116); ALT/SGPT < 9 U/L (7.0-40); AST/SGOT 13 U/L (<34); BILIRUBIN,TOTAL 0.3 MG/DL (0.3-1.2); BLOOD UREA NITROGEN 12 MG/DL (9-23); CALCIUM LEVEL 8.6 MG/DL (8.3-10.6); CARBON DIOXIDE LEVEL 32 MMOL/L (20-31); CHLORIDE LEVEL 104 MMOL/L (98-107); CREATININE FOR GFR 0.63 MG/DL (0.55-1.30); GLOMERULAR FILTRATION RATE > 60.0 (>45); GLUCOSE, FASTING 129 MG/DL (74-106); HEMOGLOBIN A1c 5.8 % (4.0-6.0); POTASSIUM SERUM 4.5 MMOL/L (3.5-5.1); SODIUM LEVEL 140 MMOL/L (136-145); TOTAL PROTEIN 5.9 G/DL (5.7-8.2)
[2023-01-28 09:58] LABS: FOLATE 7.2 NG/ML (>5.4); THYROID STIMULATING HORMONE 2.272 uIU/ML (0.55-4.78); TOTAL 25(OH) VITAMIN D 20.6 NG/ML (20.0-100.0)
[2023-01-28 09:59] LABS: FERRITIN 8.6 NG/ML (7.3-270.7); FREE T4 0.87 NG/DL (0.89-1.76); VITAMIN B12 LEVEL 292 PG/ML (211-911)
== END ==
LOC: M LAB 08:25
PROVIDERS: ATTEND Family Medicine
DX: D64.9 Anemia, unspecified (principal); E11.65 Type 2 diabetes mellitus with hyperglycemia; R53.83 Other fatigue; R19.7 Diarrhea, unspecified; Z79.899 Other long term (current) drug therapy

== ENCOUNTER → 2023-02-06 | Outpatient (CLI) | payer OTHER, MEDICAID | LOC: M CARPUL 14:12 | PROVIDERS: ATTEND Family Medicine | DX: R06.01 Orthopnea (principal); R06.02 Shortness of breath ==

== ENCOUNTER → 2023-03-23 | Outpatient (CLI) | payer OTHER, MEDICAID ==
[~2023-03-23] MED LIST changes: +ETAN50PE SQ; +FERR325T3 PO; +FLUTISP; +FURO40TA2 PO; +IRBE150T27 PO; +UPAD15TA
== END ==
LOC: M PAIN 11:30
PROVIDERS: ATTEND Nurse Practitioner Family
DX: M51.17 Intervertebral disc disorders with radiculopathy, lumbosacral region (principal); G89.29 Other chronic pain; E11.9 Type 2 diabetes mellitus without complications; K21.9 Gastro-esophageal reflux disease without esophagitis; E78.5 Hyperlipidemia, unspecified; I10 Essential (primary) hypertension; M79.7 Fibromyalgia; L40.50 Arthropathic psoriasis, unspecified; G47.33 Obstructive sleep apnea (adult) (pediatric); I25.10 Atherosclerotic heart disease of native coronary artery without angina pectoris; M47.816 Spondylosis without myelopathy or radiculopathy, lumbar region; F17.210 Nicotine dependence, cigarettes, uncomplicated; E66.9 Obesity, unspecified; Z68.33 Body mass index [BMI] 33.0-33.9, adult; Z79.84 Long term (current) use of oral hypoglycemic drugs; Z79.891 Long term (current) use of opiate analgesic; Z79.899 Other long term (current) drug therapy; Z79.82 Long term (current) use of aspirin; Z88.2 Allergy status to sulfonamides

== ENCOUNTER 2023-04-17 08:18 | Outpatient (CLI) | payer OTHER, MEDICAID ==
[~2023-04-17] VITALS: Ht 165.1 cm; Wt 93.0 kg
[2023-04-17 08:25] VITALS: BP 145/66; O2SAT 95
[2023-04-17] MEDS: diphenhydrAMINE 25MG PO PRIOR TO INFUSION PO ONE (08:47)
[2023-04-17] MEDS: ACETAMINOPHEN 650MG PO PRIOR TO INFUSION PO ONE (08:47)
[2023-04-17] MEDS: IRON SUCROSE 300 MG in NS 250 ML OVER 90 MIN. IV ONE (09:07)
[2023-04-17 11:00] VITALS: BP 179/84; O2SAT 94
== END 2023-04-17 11:25 ==
LOC: M INFU 08:18
PROVIDERS: ATTEND Internal Medicine Medical Oncology
DX: D64.9 Anemia, unspecified (principal); Z88.2 Allergy status to sulfonamides
CPT/HCPCS: 96365; 96366; J1756

== ENCOUNTER 2023-04-24 08:30 | Outpatient (CLI) | payer OTHER, MEDICAID ==
[~2023-04-24] VITALS: Ht 162.6 cm; Wt 96.3 kg
[2023-04-24 08:30] VITALS: BP 164/72; O2SAT 94
[2023-04-24] MEDS: ACETAMINOPHEN TAB 650MG DOSE (2X325MG) PO ONE (08:40)
[2023-04-24] MEDS: diphenhydrAMINE 25MG CAP PO ONE (08:40)
[2023-04-24] MEDS: IRON SUCROSE 300 MG in NS 250 ML OVER 90 MIN. IV ONE (08:41)
[2023-04-24 10:40] VITALS: BP 160/80; O2SAT 93
== END 2023-04-24 10:40 ==
LOC: M INFU 08:30
PROVIDERS: ATTEND Internal Medicine Medical Oncology
DX: D64.9 Anemia, unspecified (principal); Z88.2 Allergy status to sulfonamides
CPT/HCPCS: 96365; 96366; J1756

== ENCOUNTER 2023-05-01 09:20 | Outpatient (CLI) | payer OTHER, MEDICAID ==
[~2023-05-01] VITALS: Ht 165.7 cm; Wt 93.0 kg
[2023-05-01 09:20] VITALS: BP 168/70; O2SAT 96
[2023-05-01] MEDS ORDERED: ACETAMINOPHEN 650MG PO PRIOR TO INFUSION PO ONE (09:30)
[2023-05-01] MEDS ORDERED: diphenhydrAMINE 25MG PO PRIOR TO INFUSION PO ONE (09:30)
[2023-05-01] MEDS: IRON SUCROSE 300 MG in NS 250 ML OVER 90 MIN. IV ONE (09:36)
[2023-05-01 11:20] VITALS: BP 150/88; O2SAT 96
== END 2023-05-01 11:20 | disposition home or self-care (01) ==
LOC: M INFU 09:20
PROVIDERS: ATTEND Internal Medicine Medical Oncology
DX: D64.9 Anemia, unspecified (principal); Z88.2 Allergy status to sulfonamides
CPT/HCPCS: 96365; J1756

== ENCOUNTER → 2023-05-05 | Outpatient (CLI) | payer OTHER, MEDICAID ==
[~2023-05-05] MED LIST changes: +IRON65TA2 PO; +OMEP-173 PO; +ROPI1TAB73 PO; -UPAD15TA; +UPAD15TA PO
== END ==
LOC: M SLEEP 20:00
PROVIDERS: ATTEND Physician Assistant
DX: G47.33 Obstructive sleep apnea (adult) (pediatric) (principal)

== ENCOUNTER 2023-05-19 10:38 | Day surgery (SDC) | payer OTHER, MEDICAID ==
[~2023-05-19] VITALS: Ht 170.2 cm; Wt 95.3 kg
[2023-05-19] MEDS: NS 1,000 ML IV ONE (11:26)
[2023-05-19] MEDS ORDERED: fentaNYL 100 MCG/2 ML INJECTION As Ordered ONE (12:03)
[2023-05-19] MEDS ORDERED: propofoL 200 MG/20 ML VIAL As Ordered ONE (12:06)
[2023-05-19 14:06] VITALS: BP 175/76; TEMP 97.2; O2SAT 91
== END 2023-05-19 12:50 | disposition home or self-care (01) ==
LOC: M OPP 10:38
PROVIDERS: ATTEND Internal Medicine Gastroenterology
DX: K64.8 Other hemorrhoids (principal); K64.4 Residual hemorrhoidal skin tags; Q43.8 Other specified congenital malformations of intestine; K63.5 Polyp of colon; K29.70 Gastritis, unspecified, without bleeding; F17.200 Nicotine dependence, unspecified, uncomplicated; E11.9 Type 2 diabetes mellitus without complications; G47.30 Sleep apnea, unspecified; Z99.89 Dependence on other enabling machines and devices; Z79.02 Long term (current) use of antithrombotics/antiplatelets; Z79.1 Long term (current) use of non-steroidal anti-inflammatories (NSAID); Z79.51 Long term (current) use of inhaled steroids; Z79.82 Long term (current) use of aspirin; Z79.84 Long term (current) use of oral hypoglycemic drugs; Z79.899 Other long term (current) drug therapy; Z79.891 Long term (current) use of opiate analgesic
CPT/HCPCS: 43239; 45380; 88305; J3010

== ENCOUNTER 2023-05-22 07:48 | Outpatient (CLI) | payer OTHER, MEDICAID ==
[~2023-05-22] VITALS: Ht 162.6 cm; Wt 94.1 kg
[~2023-05-22 07:48] MED LIST changes: +ACETAMINOPHEN 650MG PO PRIOR TO INFUSION PO ONE; -BRIN10TA4; +IRON SUCROSE 300 MG in NS 250 ML OVER 90 MIN. IV ONE; +diphenhydrAMINE 25MG PO PRIOR TO INFUSION PO ONE
[2023-05-22] MEDS ORDERED: diphenhydrAMINE 25MG CAP PO ONE (08:00)
[2023-05-22] MEDS: ACETAMINOPHEN TAB 650MG DOSE (2X325MG) PO ONE (08:10)
[2023-05-22 08:14] VITALS: O2SAT 92
[2023-05-22] MEDS: IRON SUCROSE 300 MG in NS 250 ML OVER 90 MIN. IV ONE (08:26)
[2023-05-22 10:15] VITALS: BP 160/90; O2SAT 93
[2023-05-26] MEDS ORDERED: BRIN10TA4 (08:11)
== END 2023-05-22 10:15 ==
LOC: M INFU 07:48
PROVIDERS: ATTEND Internal Medicine Medical Oncology
DX: D64.9 Anemia, unspecified (principal); Z88.2 Allergy status to sulfonamides; M51.17 Intervertebral disc disorders with radiculopathy, lumbosacral region; Z79.891 Long term (current) use of opiate analgesic; G89.29 Other chronic pain; Z79.82 Long term (current) use of aspirin; Z79.899 Other long term (current) drug therapy; M79.7 Fibromyalgia
CPT/HCPCS: 96365; 96366; G0463; J1756

== ENCOUNTER → 2023-05-22 | Outpatient (CLI) | payer OTHER, MEDICAID ==
[~2023-05-22] MED LIST changes: +BRIN10TA4
== END ==
LOC: M PAIN 11:00
PROVIDERS: ATTEND Nurse Practitioner Family
DX: M51.17 Intervertebral disc disorders with radiculopathy, lumbosacral region (principal); Z79.891 Long term (current) use of opiate analgesic; G89.29 Other chronic pain; Z79.82 Long term (current) use of aspirin; Z79.84 Long term (current) use of oral hypoglycemic drugs; Z79.899 Other long term (current) drug therapy; Z88.2 Allergy status to sulfonamides; M79.7 Fibromyalgia

== ENCOUNTER 2023-05-29 08:35 | Outpatient (CLI) | payer MEDICARE, MEDICAID ==
[~2023-05-29] VITALS: Ht 165.1 cm; Wt 93.0 kg
[~2023-05-29 08:35] MED LIST changes: -ACETAMINOPHEN 650MG PO PRIOR TO INFUSION PO ONE; +BRIN10TA4; +diphenhydrAMINE 25MG CAP PO ONE; -diphenhydrAMINE 25MG PO PRIOR TO INFUSION PO ONE
[2023-05-29] MEDS ORDERED: ACETAMINOPHEN TAB 650MG DOSE (2X325MG) PO ONE (09:00)
[2023-05-29] MEDS ORDERED: diphenhydrAMINE 25MG CAP PO ONE (09:00)
[2023-05-29] MEDS: IRON SUCROSE 300 MG in NS 250 ML OVER 90 MIN. IV ONE (09:19)
[2023-05-29] MEDS: ACETAMINOPHEN TAB 650MG DOSE (2X325MG) PO ONE (09:20)
[2023-05-29 09:27] VITALS: O2SAT 94
[2023-05-29 11:11] VITALS: BP 150/80; O2SAT 92
== END 2023-05-29 11:10 | disposition home or self-care (01) ==
LOC: M INFU 08:35
PROVIDERS: ATTEND Internal Medicine Medical Oncology
DX: D64.9 Anemia, unspecified (principal); Z88.2 Allergy status to sulfonamides
CPT/HCPCS: 96365; 96366; J1756

== ENCOUNTER → 2023-06-09 | Outpatient (REF) | payer MEDICARE, MEDICAID, OTHER ==
[~2023-06-09] MED LIST changes: -IRON SUCROSE 300 MG in NS 250 ML OVER 90 MIN. IV ONE; -diphenhydrAMINE 25MG CAP PO ONE
[2023-06-09 17:42] LABS: CREATININE, URINE 56.4 MG/DL; MAU/CREAT RATIO 345.7 MCG/MG (0.0-30.0)
[2023-06-09 18:43] LABS: HEMOGLOBIN A1c 5.8 % (4.0-6.0)
[2023-06-09 18:51] LABS: ALBUMIN 3.6 G/DL (3.2-5.2); ALKALINE PHOSPHATASE 73 U/L (46-116); ALT/SGPT 19 U/L (7.0-40); AST/SGOT 13 U/L (<34); BILIRUBIN,TOTAL 0.5 MG/DL (0.3-1.2); BLOOD UREA NITROGEN 13 MG/DL (9-23); CALCIUM LEVEL 9.3 MG/DL (8.3-10.6); CARBON DIOXIDE LEVEL 32 MMOL/L (20-31); CHLORIDE LEVEL 104 MMOL/L (98-107); CREATININE FOR GFR 0.64 MG/DL (0.55-1.30); GLOMERULAR FILTRATION RATE > 60.0 (>45); GLUCOSE, FASTING 95 MG/DL (74-106); POTASSIUM SERUM 4.7 MMOL/L (3.5-5.1); SODIUM LEVEL 141 MMOL/L (136-145); TOTAL PROTEIN 6.3 G/DL (5.7-8.2)
== END ==
LOC: M LAB REF 16:24
PROVIDERS: ATTEND Nurse Practitioner Family
DX: E11.8 Type 2 diabetes mellitus with unspecified complications (principal)

== ENCOUNTER 2023-06-19 11:09 | Emergency (ER) | payer MEDICARE, MEDICAID ==
[~2023-06-19] VITALS: Ht 162.6 cm; Wt 89.5 kg
[~2023-06-19 11:09] MED LIST changes: -BRIN10TA4; +BRIN10TA4 PO; -PROA1AER2 IN; +PROA1AER2 INH
[2023-06-19 11:19] VITALS: BP 169/79; TEMP 97.9; O2SAT 91
[2023-06-19 12:32] LABS: BASO % 0.4 % (0.0-1.0); EOS # 0.1 10^3/uL (0.0-0.5); EOS % 1.1 % (0.0-3.0); HEMATOCRIT 46.2 % (36.0-47.0); HEMOGLOBIN 15.1 g/dl (12.0-15.5); LYMPH # 2.1 10^3/uL (1.5-5.0); LYMPH % 20.1 % (24.0-44.0); MEAN CORPUSCULAR HEMOGLOBIN 28.5 pg (27.0-33.0); MEAN CORPUSCULAR HGB CONC 32.7 g/dl (32.0-36.5); MEAN CORPUSCULAR VOLUME 87.3 fl (80.0-96.0); MONO # 0.4 10^3/uL (0.0-0.8); MONO % 3.5 % (2.0-8.0); NEUTROPHILS # 7.7 10^3/uL (1.5-8.5); NEUTROPHILS % 74.6 % (36.0-66.0); PLATELET COUNT, AUTOMATED 260 10^3/uL (150-450); RED BLOOD COUNT 5.29 10^6/uL (4.00-5.40); WHITE BLOOD COUNT 10.3 10^3/uL (4.0-10.0)
[2023-06-19 12:34] LABS: ABG BASE EXCESS 3.2 (-2.0-2.0); ABG HCO3 28.3 MMOL/L (22.0-26.0); ABG O2 SATURATION 93.8 % (95.0-99.0); ABG PARTIAL PRESSURE CO2 44.7 mmHg (35.0-45.0); ABG PARTIAL PRESSURE O2 67.4 mmHg (75.0-100.0); ABG STANDARD HCO3 27.2 MMOL/L. (22.0-26.0); ABG TOTAL CO2 29.7 MMOL/L (23.0-31.0); ABG pH (ARTERIAL) 7.419 UNITS (7.350-7.450)
[2023-06-19] MEDS ORDERED: PRED10PA2 PO (12:37)
[2023-06-19] MEDS ORDERED: DULO30CA9 PO (12:37)
[2023-06-19] MEDS ORDERED: HOME MED LIST COMPLETE! XX SCH (12:40)
[2023-06-19 12:59] LABS: LIPASE 36 U/L (12-53)
[2023-06-19 13:01] LABS: ALBUMIN 3.6 G/DL (3.2-5.2); ALKALINE PHOSPHATASE 70 U/L (46-116); ALT/SGPT 33 U/L (7.0-40); AST/SGOT 27 U/L (<34); BILIRUBIN,DIRECT 0.3 MG/DL (<0.4); BILIRUBIN,TOTAL 0.7 MG/DL (0.3-1.2); BLOOD UREA NITROGEN 11 MG/DL (9-23); CALCIUM LEVEL 8.7 MG/DL (8.3-10.6); CARBON DIOXIDE LEVEL 28 MMOL/L (20-31); CHLORIDE LEVEL 99 MMOL/L (98-107); CREATININE FOR GFR 0.69 MG/DL (0.55-1.30); GLOMERULAR FILTRATION RATE > 60.0 (>45); GLUCOSE, FASTING 118 MG/DL (74-106); POTASSIUM SERUM 4.2 MMOL/L (3.5-5.1); SODIUM LEVEL 136 MMOL/L (136-145); TOTAL PROTEIN 6.3 G/DL (5.7-8.2)
[2023-06-19 14:03] VITALS: O2SAT 94
[2023-06-19] MEDS ORDERED: ONDA4TAB6 PO (16:54)
== END 2023-06-19 17:12 | disposition home or self-care (01) ==
LOC: M ED 11:09
DX: R11.2 Nausea with vomiting, unspecified (principal); E11.9 Type 2 diabetes mellitus without complications; I10 Essential (primary) hypertension; J45.909 Unspecified asthma, uncomplicated; D50.9 Iron deficiency anemia, unspecified; E78.5 Hyperlipidemia, unspecified; Z87.19 Personal history of other diseases of the digestive system; G47.33 Obstructive sleep apnea (adult) (pediatric); F17.200 Nicotine dependence, unspecified, uncomplicated; Z79.82 Long term (current) use of aspirin; Z79.84 Long term (current) use of oral hypoglycemic drugs; Z79.899 Other long term (current) drug therapy; Z88.2 Allergy status to sulfonamides

== ENCOUNTER → 2023-06-21 | Outpatient (REF) | payer MEDICARE, MEDICAID ==
[~2023-06-21] MED LIST changes: +DULO30CA9 PO; +ONDA4TAB6 PO; +PRED10PA2 PO
== END ==
LOC: M LAB REF 19:26
PROVIDERS: ATTEND Nurse Practitioner Family
DX: J44.9 Chronic obstructive pulmonary disease, unspecified (principal)

== ENCOUNTER → 2023-06-27 | Outpatient (CLI) | payer OTHER | LOC: M PAIN 10:15 | PROVIDERS: ATTEND Nurse Practitioner Family | DX: M25.562 Pain in left knee (principal); M79.18 Myalgia, other site; M25.512 Pain in left shoulder; G89.29 Other chronic pain; E11.9 Type 2 diabetes mellitus without complications; K21.9 Gastro-esophageal reflux disease without esophagitis; E78.5 Hyperlipidemia, unspecified; I10 Essential (primary) hypertension; L40.50 Arthropathic psoriasis, unspecified; F32.A Depression, unspecified; D64.9 Anemia, unspecified; G47.33 Obstructive sleep apnea (adult) (pediatric); E66.9 Obesity, unspecified; I25.10 Atherosclerotic heart disease of native coronary artery without angina pectoris; F17.210 Nicotine dependence, cigarettes, uncomplicated; Z79.82 Long term (current) use of aspirin; Z79.891 Long term (current) use of opiate analgesic; Z79.899 Other long term (current) drug therapy; Z79.84 Long term (current) use of oral hypoglycemic drugs; Z88.2 Allergy status to sulfonamides; Z68.31 Body mass index [BMI] 31.0-31.9, adult ==

== ENCOUNTER → 2023-07-14 | Outpatient (CLI) | payer OTHER, MEDICAID ==
[~2023-07-14] MED LIST changes: -ETOD-173 PO; +ETOD-234 PO
== END ==
LOC: M WHC 09:32
PROVIDERS: ATTEND Nurse Practitioner Family
DX: Z12.31 Encounter for screening mammogram for malignant neoplasm of breast (principal)

== ENCOUNTER → 2023-10-09 | Outpatient (CLI) | payer OTHER, MEDICAID ==
[~2023-10-09] MED LIST changes: +ONDA-282 PO; -ONDA4TAB6 PO
== END ==
LOC: M RAD 07:30
PROVIDERS: ATTEND Internal Medicine Pulmonary Disease
DX: R91.8 Other nonspecific abnormal finding of lung field (principal); J90 Pleural effusion, not elsewhere classified; D35.02 Benign neoplasm of left adrenal gland

== ENCOUNTER → 2023-10-10 | Outpatient (CLI) | payer OTHER | LOC: M PAIN 14:45 | PROVIDERS: ATTEND Nurse Practitioner Family | DX: M25.562 Pain in left knee (principal); M79.18 Myalgia, other site; M25.512 Pain in left shoulder; G89.29 Other chronic pain; E11.9 Type 2 diabetes mellitus without complications; K21.9 Gastro-esophageal reflux disease without esophagitis; M19.90 Unspecified osteoarthritis, unspecified site; E78.5 Hyperlipidemia, unspecified; I10 Essential (primary) hypertension; G25.81 Restless legs syndrome; L40.50 Arthropathic psoriasis, unspecified; D64.9 Anemia, unspecified; G47.33 Obstructive sleep apnea (adult) (pediatric); E66.9 Obesity, unspecified; I25.10 Atherosclerotic heart disease of native coronary artery without angina pectoris; M47.816 Spondylosis without myelopathy or radiculopathy, lumbar region; F32.A Depression, unspecified; F17.210 Nicotine dependence, cigarettes, uncomplicated; Z79.82 Long term (current) use of aspirin; Z79.891 Long term (current) use of opiate analgesic; Z79.899 Other long term (current) drug therapy; Z79.84 Long term (current) use of oral hypoglycemic drugs; Z88.2 Allergy status to sulfonamides; Z68.34 Body mass index [BMI] 34.0-34.9, adult ==

== ENCOUNTER → 2023-10-13 | Outpatient (REF) | payer OTHER, MEDICAID ==
[2023-10-20 14:13] LABS: CREATININE, URINE 57.1 MG/DL
[2023-10-20 14:14] LABS: MAU/CREAT RATIO 19.2 MCG/MG (0.0-30.0)
== END ==
LOC: M LAB REF 11:27
PROVIDERS: ATTEND Nurse Practitioner Family
DX: E11.8 Type 2 diabetes mellitus with unspecified complications (principal)

== ENCOUNTER → 2023-10-26 | Outpatient (CLI) | payer OTHER | LOC: M PAIN 14:00 | PROVIDERS: ATTEND Nurse Practitioner Family | DX: M51.17 Intervertebral disc disorders with radiculopathy, lumbosacral region (principal); G89.29 Other chronic pain; E11.9 Type 2 diabetes mellitus without complications; K21.9 Gastro-esophageal reflux disease without esophagitis; M54.2 Cervicalgia; E78.5 Hyperlipidemia, unspecified; I10 Essential (primary) hypertension; G25.81 Restless legs syndrome; M79.7 Fibromyalgia; L40.50 Arthropathic psoriasis, unspecified; E66.9 Obesity, unspecified; D64.9 Anemia, unspecified; G47.33 Obstructive sleep apnea (adult) (pediatric); I25.10 Atherosclerotic heart disease of native coronary artery without angina pectoris; F32.A Depression, unspecified; Z86.73 Personal history of transient ischemic attack (TIA), and cerebral infarction without residual deficits; F17.210 Nicotine dependence, cigarettes, uncomplicated; Z79.02 Long term (current) use of antithrombotics/antiplatelets; Z79.84 Long term (current) use of oral hypoglycemic drugs; Z79.891 Long term (current) use of opiate analgesic; Z79.899 Other long term (current) drug therapy; Z79.82 Long term (current) use of aspirin; Z88.2 Allergy status to sulfonamides; Z68.34 Body mass index [BMI] 34.0-34.9, adult ==

== ENCOUNTER → 2023-12-25 | Outpatient (CLI) | payer OTHER ==
[~2023-12-25] MED LIST changes: +METF-1156 PO; -METF-817 PO
== END ==
LOC: M PAIN 09:30
PROVIDERS: ATTEND Nurse Practitioner Family
DX: M51.16 Intervertebral disc disorders with radiculopathy, lumbar region (principal); M48.07 Spinal stenosis, lumbosacral region; G89.29 Other chronic pain; E11.9 Type 2 diabetes mellitus without complications; K21.9 Gastro-esophageal reflux disease without esophagitis; E78.5 Hyperlipidemia, unspecified; I10 Essential (primary) hypertension; G25.81 Restless legs syndrome; E66.9 Obesity, unspecified; D64.9 Anemia, unspecified; G47.33 Obstructive sleep apnea (adult) (pediatric); I25.10 Atherosclerotic heart disease of native coronary artery without angina pectoris; F32.A Depression, unspecified; F17.210 Nicotine dependence, cigarettes, uncomplicated; Z79.02 Long term (current) use of antithrombotics/antiplatelets; Z79.82 Long term (current) use of aspirin; Z79.84 Long term (current) use of oral hypoglycemic drugs; Z79.891 Long term (current) use of opiate analgesic; Z79.899 Other long term (current) drug therapy; Z88.2 Allergy status to sulfonamides; Z88.8 Allergy status to other drugs, medicaments and biological substances

== ENCOUNTER → 2023-12-25 | Outpatient (CLI) | payer OTHER ==
[2023-12-25 11:44] LABS: FOLATE > 24.0 NG/ML (>5.4); THYROID STIMULATING HORMONE 1.502 uIU/ML (0.55-4.78)
[2023-12-25 11:46] LABS: VITAMIN B12 LEVEL 561 PG/ML (211-911)
[2023-12-26 08:47] LABS: T P ELECTROPHORESIS SO 6.5 g/dL (6.1-8.1)
[2023-12-27 08:57] LABS: ALBUMIN SPEP 3.7 g/dL (3.8-4.8); ALPHA-1-GLOBULINS SO 0.3 g/dL (0.2-0.3); BETA 2 GLOBULIN 0.5 g/dL (0.2-0.5); BETA-GLOBULIN SO 0.4 g/dL (0.4-0.6); GAMMA GLOBULINS SO 0.6 g/dL (0.8-1.7)
[2023-12-31 08:17] LABS: VITAMIN B1 LEVEL WHOLE BLOOD 180 nmol/L (78-185)
[2023-12-31 19:32] LABS: VITAMIN B6,PYRIDOXAL PHOSPHATE 11.1 ng/mL (2.1-21.7)
[2024-01-01 06:52] LABS: VITAMIN E(ALPHA TOCOPHEROL) 10.2 mg/L (5.7-19.9); VITAMIN E(GAMMA TOCOPHEROL) < 1.0 mg/L (<=4.3)
== END ==
LOC: M LAB 10:47
PROVIDERS: ATTEND Psychiatry & Neurology Neurology
DX: E11.9 Type 2 diabetes mellitus without complications (principal); M51.16 Intervertebral disc disorders with radiculopathy, lumbar region; M48.07 Spinal stenosis, lumbosacral region; G89.29 Other chronic pain; K21.9 Gastro-esophageal reflux disease without esophagitis; E78.5 Hyperlipidemia, unspecified; I10 Essential (primary) hypertension; G25.81 Restless legs syndrome; E66.9 Obesity, unspecified; D64.9 Anemia, unspecified; G47.33 Obstructive sleep apnea (adult) (pediatric); I25.10 Atherosclerotic heart disease of native coronary artery without angina pectoris; F32.A Depression, unspecified; F17.210 Nicotine dependence, cigarettes, uncomplicated; Z79.02 Long term (current) use of antithrombotics/antiplatelets; Z79.82 Long term (current) use of aspirin; Z79.84 Long term (current) use of oral hypoglycemic drugs; Z79.891 Long term (current) use of opiate analgesic; Z79.899 Other long term (current) drug therapy; Z88.2 Allergy status to sulfonamides; Z88.8 Allergy status to other drugs, medicaments and biological substances
CPT/HCPCS: 36415; 82607; 82746; 84155; 84165; 84207; 84425; 84443; 84446; G0463

== ENCOUNTER → 2023-12-27 | Outpatient (REF) | payer OTHER, MEDICAID ==
[2023-12-29 14:48] LABS: HPV APTIMA Not Detected (Not Detected)
== END ==
LOC: M SFHCWAGY 17:49
PROVIDERS: ATTEND Nurse Practitioner Family
DX: Z12.4 Encounter for screening for malignant neoplasm of cervix (principal)

== ENCOUNTER → 2024-03-29 | Outpatient (CLI) | payer MEDICARE, MEDICAID ==
[~2024-03-29] MED LIST changes: +OMEP-611 PO; -OMEP20TA2 PO
== END ==
LOC: M PAIN 09:00
PROVIDERS: ATTEND Nurse Practitioner Family
DX: M51.16 Intervertebral disc disorders with radiculopathy, lumbar region (principal); G89.29 Other chronic pain; E11.9 Type 2 diabetes mellitus without complications; E78.5 Hyperlipidemia, unspecified; I10 Essential (primary) hypertension; F17.210 Nicotine dependence, cigarettes, uncomplicated; Z79.82 Long term (current) use of aspirin; Z79.84 Long term (current) use of oral hypoglycemic drugs; Z79.899 Other long term (current) drug therapy; Z79.891 Long term (current) use of opiate analgesic; Z88.2 Allergy status to sulfonamides; Z88.8 Allergy status to other drugs, medicaments and biological substances

== ENCOUNTER → 2024-04-19 | Outpatient (CLI) | payer MEDICARE, MEDICAID ==
[~2024-04-19] MED LIST changes: +ATOR40TA75; +NYST-38 PO; +SERT150C
[2024-04-19 14:29] LABS: BASO % 0.6 % (0.0-1.0); EOS # 0.3 10^3/uL (0.0-0.5); HEMATOCRIT 43.4 % (36.0-47.0); HEMOGLOBIN 13.9 g/dl (12.0-15.5); LYMPH # 1.7 10^3/uL (1.5-5.0); LYMPH % 25.6 % (24.0-44.0); MEAN CORPUSCULAR VOLUME 90.6 fl (80.0-96.0); MONO # 0.4 10^3/uL (0.0-0.8); MONO % 5.6 % (2.0-8.0); NEUTROPHILS # 4.2 10^3/uL (1.5-8.5); NEUTROPHILS % 62.7 % (36.0-66.0); PLATELET COUNT, AUTOMATED 192 10^3/uL (150-450); RED BLOOD COUNT 4.79 10^6/uL (4.00-5.40); WHITE BLOOD COUNT 6.6 10^3/uL (4.0-10.0)
[2024-04-19 14:53] LABS: ALBUMIN 3.4 G/DL (3.2-5.2); ALKALINE PHOSPHATASE 91 U/L (35-104); ALT/SGPT 17 U/L (7.0-40); AST/SGOT 15 U/L (<34); BILIRUBIN,TOTAL 0.4 MG/DL (0.3-1.2); BLOOD UREA NITROGEN 6 MG/DL (9-23); CALCIUM LEVEL 8.9 MG/DL (8.3-10.6); CARBON DIOXIDE LEVEL 29 MMOL/L (20-31); CHLORIDE LEVEL 103 MMOL/L (98-107); CREATININE FOR GFR 0.67 MG/DL (0.55-1.30); GLOMERULAR FILTRATION RATE > 60.0 (>45); GLUCOSE, FASTING 153 MG/DL (74-106); POTASSIUM SERUM 4.1 MMOL/L (3.5-5.1); SODIUM LEVEL 142 MMOL/L (136-145); TOTAL PROTEIN 6.4 G/DL (5.7-8.2)
== END ==
LOC: M LAB 11:41
PROVIDERS: ATTEND Psychiatry & Neurology Neurology
DX: R51.9 Headache, unspecified (principal)

== ENCOUNTER → 2024-09-26 | Outpatient (REF) | payer MEDICARE, MEDICAID ==
[~2024-09-26] MED LIST changes: +BUPR150T15 PO; -BUPR1TAB53 PO; -BYDU2INJ7 SC; +EXEN2AUT SC; +LISI40TA10 PO; -LISI40TA4 PO; -NYST-13 EXT; +NYST0.1C EXT; -PRAV80TA2 PO; +PRAV80TA75 PO
== END ==
LOC: M LAB REF 11:49
PROVIDERS: ATTEND Nurse Practitioner Family
DX: R30.0 Dysuria (principal)

== ENCOUNTER → 2024-11-06 | Outpatient (CLI) | payer MEDICARE, MEDICAID | LOC: M RAD 07:32 | PROVIDERS: ATTEND Internal Medicine Pulmonary Disease | DX: Z12.2 Encounter for screening for malignant neoplasm of respiratory organs (principal); F17.218 Nicotine dependence, cigarettes, with other nicotine-induced disorders ==

== ENCOUNTER → 2024-11-12 | Outpatient (REF) | payer MEDICARE, MEDICAID, OTHER ==
[2024-11-12 13:12] LABS: CREATININE, URINE 80.0 MG/DL; MALB URINE SIEMENS 33.0 MG/L; MAU/CREAT RATIO 41.2 MCG/MG (0.0-30.0)
== END ==
LOC: M LAB REF 12:03
PROVIDERS: ATTEND Nurse Practitioner Family
DX: E11.8 Type 2 diabetes mellitus with unspecified complications (principal)